=== PATIENT | female | born 1960 | race Caucasian/White ===

== ENCOUNTER → 2017-11-05 10:10 | Day surgery (SDC) | payer MEDICARE, SELFPAY ==
[2017-10-29 10:41] LABS: Hemoglobin 10.8 g/dl (12.0-15.0); Mean Corp Hgb Conc 32.7 g/gl (32-36); Mean Corpuscular Hgb 30.4 pg (27.0-32.0); Mean Platelet Vol. 10.4 fl (6.2-12.0); Platelet Count 304 K/mm3 (150-450); RBC Distribution Width CV 12.2 % (11.6-14.6); RBC Distribution Width SD 41.5 fl (35.1-43.9); Red Blood Count 3.55 M/mm3 (4.2-5.4)
[2017-10-29 10:50] LABS: Anion Gap 7 (5-15); BUN 30 mg/dL (7-18); Calcium,Total 8.9 mg/dL (8.5-10.1); Chloride 104 mmol/L (98-107); EST Glomerular Filtration Rate 23 mL/min (>60); Est Glom Filt Rate - Afr Amer 28 mL/min (>60); Glucose 131 mg/dL (70-110); Potassium 4.9 mmol/L (3.5-5.1); Sodium Level 140 mmol/L (136-145)
[2017-10-29 10:57] LABS: Scan Indicated on CBC? Y/N NO
[2017-11-04 09:55] VITALS: BMI 29.0
--- NOTE | 2017-11-05 13:28 | PCM.OPRPT ---
Problem List (1) Problem with dialysis access Status: Acute Qualifiers: Encounter type: initial encounter Qualified Code(s): T82.898A - Other specified complication of vascular prosthetic devices, implants and grafts, initial encounter Report of Operation Date of Procedure: 11/05/17 Pre-Operative Diagnosis: Problem with left forearm transposed loop basilic vein to brachial artery arteriovenous fistula Post-Operative Diagnosis: Mid fistula venous stenosis Surgery/Procedure Performed:: Carbon dioxide left upper extremity fistulogram with 6 x 80 mm ever cross angioplasty and 6 x 20 mm conquest angioplasty Description of Surgical Findings:: Timeout and informed consent was obtained. 56-year-old female was taken to the special procedures lab placed on the table. Left upper extremity was sterilely prepped draped. 50 mcg fentanyl 1 mg of Versed were given as intravenous sedation. Ultrasound was used to identify the basilic vein closer to the antecubital space and then retrograde with flow heading toward the apex of the loop in the forearm under ultrasound guidance a micropuncture needle was inserted micropuncture wire inserted 6 Portuguese short sheath was inserted. Then using an R CVP catheter and an 035 angled Glidewire access was gained to the brachial artery proximal to the anastomosis. As the patient is not yet on hemodialysis carbon dioxide was used as a contrast medium. Santos grams obtained this demonstrated an area of focal high-grade stenosis within the midportion of the fistula. A 6 x 80 mm ever cross balloon was placed over the Glidewire. Balloon angioplasty was performed of the entire length of the fistula. Unfortunately the area of tight 90? stenosis did not respond to this balloon. So after performing angioplasty and maturation technique of the entire venous portion of the fistula I then inserted a 6 x 20 m conquest balloon and the area of tight venous stenosis was retreated this time successfully. The RCB catheter was reinserted and a final fistulogram was obtained using carbon dioxide mistreating seemingly resolution of the area stenosis. Images were obtained of the upper arm and chest area demonstrating good central venous outflow The catheter was removed the sheath was removed U suture of 4-0 nylon was placed was good hemostasis was a strong pulse, thrill, bruit at the completion. Images demonstrate a loop forearm left transposed basilic vein to brachial artery AV shunt fistula with an area of mid fistula tight stenosis but good basilic vein upper arm outflow and good central venous outflow. Subsequent to the angioplasty there is now resolution of the stenosis. Aguila Wagner M.D., F.A.C.S.
== END ==
PROVIDERS: Family Provider Internal Medicine; PCP Internal Medicine; Visit Provider Surgery
DX: T82.858A Stenosis of other vascular prosthetic devices, implants and grafts, initial encounter (principal); I35.9 Nonrheumatic aortic valve disorder, unspecified; I12.9 Hypertensive chronic kidney disease with stage 1 through stage 4 chronic kidney disease, or unspecified chronic kidney disease; E10.22 Type 1 diabetes mellitus with diabetic chronic kidney disease; N18.4 Chronic kidney disease, stage 4 (severe); E78.5 Hyperlipidemia, unspecified; E03.9 Hypothyroidism, unspecified; E10.42 Type 1 diabetes mellitus with diabetic polyneuropathy; J45.909 Unspecified asthma, uncomplicated; M14.671 Charcot's joint, right ankle and foot; I25.2 Old myocardial infarction; Z87.01 Personal history of pneumonia (recurrent); Z89.411 Acquired absence of right great toe; Z98.51 Tubal ligation status; Z79.4 Long term (current) use of insulin; Z79.82 Long term (current) use of aspirin; Z79.899 Other long term (current) drug therapy
CPT/HCPCS: 36415; 36902; 76937; 80048; 85027; 99152; 99153; C1725; C1769

== ENCOUNTER → 2017-12-10 11:36 | Outpatient (CLI) | payer MEDICARE, SELFPAY ==
[2017-12-10 13:14] LABS: 24 Hour Urine Protein 447.5 mg/24HR (<150 MG/24HR); 24HR. UA Prot. Total Volume 625 mL; Urine Protein (24 Hour) 71.6 mg/dL (<11.9)
[2017-12-10 13:20] LABS: Hematocrit 30.3 % (37-47); Hemoglobin 9.5 g/dl (12.0-15.0); Mean Corp Hgb Conc 31.4 g/gl (32-36); Mean Corpuscular Hgb 30.4 pg (27.0-32.0); Mean Corpuscular Volume 96.8 fL (81-99); Mean Platelet Vol. 11.4 fl (6.2-12.0); Platelet Count 258 K/mm3 (150-450); RBC Distribution Width CV 13.5 % (11.6-14.6); RBC Distribution Width SD 46.8 fl (35.1-43.9); Red Blood Count 3.13 M/mm3 (4.2-5.4); White Blood Count 4.8 K/mm3 (4.4-11.0)
[2017-12-10 13:31] LABS: Scan Indicated on CBC? Y/N NO
[2017-12-10 13:42] LABS: Hemoglobin A1c 7.1 % (4.2-6.3)
[2017-12-10 13:47] LABS: Creat.Clear Total Volume 625 mL; Creatinine Clearance 13 ml/min (100-200); Creatinine Serum Creat 2.8 mg/dL (0.6-1.0); EST Glomerular Filtration Rate 19 mL/min (>60); Est Glom Filt Rate - Afr Amer 23 mL/min (>60)
[2017-12-10 13:49] LABS: ALB/GLOB Ratio 0.9 RATIO (0.9-2.4); AST(SGOT) 43 U/L (15-37); Alanine Aminotransfer ALT/SGPT 73 U/L (13-56); Alkaline Phosphatase 159 U/L (45-117); Anion Gap 10 (5-15); BUN 60 mg/dL (7-18); BUN/Creat Ratio 21.5 RATIO (10-20); Calcium,Total 8.7 mg/dL (8.5-10.1); Chloride 107 mmol/L (98-107); Cholesterol 112 mg/dL (200); Creatinine, Serum 2.79 mg/dL (0.55-1.02); EST Glomerular Filtration Rate 19 mL/min (>60); Est Glom Filt Rate - Afr Amer 23 mL/min (>60); Globulin 3.5 g/dL (2.2-4.2); Glucose 92 mg/dL (74-106); High Density Lipoprotein 71 mg/dL; Phosphorus 5.5 mg/dL (2.5-4.9); Potassium 5.8 mmol/L (3.5-5.1); Protein, Total 6.5 g/dL (6.4-8.2); Sodium Level 143 mmol/L (136-145); Triglycerides 57 mg/dL; Very Low Density Lipoprotein 11 mg/dL (5-40)
[2017-12-11 09:51] LABS: Vitamin D,25 Hydroxy 17.9 ng/mL (29.95-100.01)
[2017-12-11 10:49] LABS: PTHIN 142.6 pg/mL (18.4-80.1)
== END ==
PROVIDERS: Family Provider Internal Medicine; PCP Internal Medicine; Visit Provider Internal Medicine Nephrology
DX: E55.9 Vitamin D deficiency, unspecified (principal); D50.9 Iron deficiency anemia, unspecified; N25.81 Secondary hyperparathyroidism of renal origin; N18.4 Chronic kidney disease, stage 4 (severe); N18.3 Chronic kidney disease, stage 3 (moderate); E10.40 Type 1 diabetes mellitus with diabetic neuropathy, unspecified
CPT/HCPCS: 36415; 80053; 80061; 82306; 82575; 83036; 83970; 84100; 84156; 85027

== ENCOUNTER → 2017-12-16 15:08 | Outpatient (CLI) | payer MEDICARE, SELFPAY ==
[2017-12-16 19:24] LABS: Albumin, Serum 3.1 g/dL (3.2-5.0); BUN 71 mg/dL (7-18); BUN/Creat Ratio 22.9 RATIO (10-20); Calcium,Total 8.9 mg/dL (8.5-10.1); Chloride 109 mmol/L (98-107); EST Glomerular Filtration Rate 17 mL/min (>60); Est Glom Filt Rate - Afr Amer 20 mL/min (>60); Glucose 35 mg/dL (74-106); Phosphorus 4.6 mg/dL (2.5-4.9); Potassium 5.8 mmol/L (3.5-5.1); Sodium Level 142 mmol/L (136-145)
== END ==
PROVIDERS: Family Provider Internal Medicine; PCP Internal Medicine; Visit Provider Internal Medicine Nephrology
DX: E87.5 Hyperkalemia (principal)
CPT/HCPCS: 36415; 80069

== ENCOUNTER 2017-12-17 17:26 | Inpatient (IN) | payer MEDICARE, SELFPAY ==
[2017-12-17] VITALS (9 sets, daily range): BP systolic 81–138; BP diastolic 45–72; PULSE 71–80; RESP 10–19; TEMP 36.5–36.8; O2SAT 95–98; BMI 33.8; BMI 33.2
--- NOTE | 2017-12-17 18:02 | EKG12_ITS ---
Test Reason : SOB Blood Pressure : / mmHG Vent. Rate : 071 BPM Atrial Rate : 071 BPM P-R Int : 126 ms QRS Dur : 084 ms QT Int : 386 ms P-R-T Axes : 022 013 -11 degrees QTc Int : 419 ms Normal sinus rhythm Low voltage QRS Borderline ECG Confirmed by LORNA CLEMENT ([id number]), content editor SHAMA CASAS ([id number]) on 12/21/2017 1:43:15 PM Referred By: YSABEL/FABY Confirmed By:LORNA CLEMENT
--- NOTE | 2017-12-17 18:02 | RAD_ITS ---
STUDY: X-RAY CHEST REASON FOR EXAM: Female, 57 years old. COUGH, SOB TECHNIQUE: Frontal and lateral views of the chest. COMPARISON: Study done yesterday. FINDINGS: Chronic appearing increased interstitial lung markings. There are small bilateral pleural effusions. These appear worse. There is bilateral basilar infiltrate / atelectasis. This appears stable. Normal heart size. Normal mediastinum and donato. Normal visualized pulmonary arteries. There is atherosclerotic calcification of the aortic arch with tortuosity. There are diffuse degenerative changes of the visualized thoracic spine. There is degenerative osteoarthritis of the bilateral shoulders. There is no demonstrated abnormality of the visualized soft tissue structures of the upper abdomen. RAD/Chest PA and Lateral IMPRESSION: There are small bilateral pleural effusions. These appear worse. There is bilateral basilar infiltrate / atelectasis. This appears stable. Electronically Signed: Kirby Medina MD at 19:39 EDT , Service support ,
[2017-12-17 18:28] LABS: Absolute Lymphocyte Count 1.25 X10^3/ul (0.83-4.51); Absolute Neutrophil Count 2.1 X10^3/uL (2.0-7.7); Basophil# 0.11 X10^3/uL; Basophil% 2.6 % (0-1); Eosinophil# 0.24 X10^3/uL; Eosinophils% 5.6 % (0-5); Hematocrit 29.5 % (37-47); Hemoglobin 9.1 g/dl (12.0-15.0); Lymphocyte # 1.25 X10^3/ul (4.0); Lymphocyte % 29.3 % (19-41); Mean Corp Hgb Conc 30.8 g/gl (32-36); Mean Corpuscular Volume 97.4 fL (81-99); Mean Platelet Vol. 10.8 fl (6.2-12.0); Monocyte# 0.57 X10^3/uL; Monocyte% 13.3 % (0-10); Neutrophil % 49.2 % (47-70); Platelet Count 249 K/mm3 (150-450); RBC Distribution Width CV 13.4 % (11.6-14.6); RBC Distribution Width SD 46.9 fl (35.1-43.9); Red Blood Count 3.03 M/mm3 (4.2-5.4); White Blood Count 4.3 K/mm3 (4.4-11.0)
[2017-12-17 18:29] LABS: POSITIVE COUNT NO; POSITIVE DIFFERENTIAL NO; POSITIVE MORPHOLOGY NO
--- NOTE | 2017-12-17 18:30 | ED.DCSUM_ITS ---
- ER Visit Summary Date of Service: 12/17/17 Chief Complaint: Shortness of breath History of Present Illness: The patient is a [address] Pineda, Dr. Rober Melara, and Dr. Van. She reports that she has shortness of breath began approximately 1 week ago. States that it is mild and increased with laying flat. She also reports that she has chest pain began approximately 1 week ago. It is a constant waxing and waning pain that she describes as aching. It is 3 out of 10 at worst and 4 out of 10 now. It is increased with deep breaths. There is no change with exertion. Patient reports that she saw Dr. Pineda yesterday and was placed on Lasix. She is taken 40 mg twice and only urinated once. She reports that her potassium was 5.8 yesterday. Physical Examination: Vitals: Stable. Afebrile. General: Well-nourished and well-developed. Head: Normocephalic atraumatic. Neck: Supple, no lymphadenopathy. No JVD. Nontender. Cardiovascular: Regular rate and rhythm. No murmurs. Respiratory: No respiratory distress. Fine crackles at the left base only. Abdominal: Soft, nontender, nondistended, normal bowel sounds. No guarding, rebound, or peritoneal signs. Back: Nontender. Extremities: Nontender, 1+ edema to the lower extremity is bilaterally. Skin: Normal color, no rash. Neurologic: Alert and oriented ?3. Cranial nerves II through XII are intact. Normal strength and sensation. Psych: Normal affect. Test Results: EKG is sinus at 71 with a normal QRS interval at 84. Troponin is negative. Chem-7 is marked potassium 6.2 (this was 5.8 yesterday), BUN 71, creatinine 3.5, glucose 60, calcium 8.4. CBC is marked for white count of 4.3 with an H&H of 9.1 29.5, monocytes 13, eosinophils of 6, basophils of 2. Chest x-ray shows bilateral basilar infiltrates/atelectasis that are stable. She also has a small bilateral pleural effusions that are worse. Emergency Department Course and Treatment: Patient is resting comfortably. When her potassium returned the patient was given Kayexalate p.o., D50 IV, and 5 units of insulin IV. Her blood sugar was 60. Because of this she was given an apple juice and cookies. She is resting comfortably. She was not given calcium as her QRS interval is normal. Treatment Plan: Patient was discussed with Dr. Valencia. She will be admitted to the hospital for further relation and treatment. Disposition: Admitted in improved condition. Impression: 1. Chronic renal insufficiency. 2. Hyperkalemia. 3. Bilateral pleural effusions. 4. Dyspnea. 5. Critical care time 30 minutes. This note was generated with [employer] dictation software. It may contain incorrect words, spelling, and punctuation that were not noted in review of the chart prior to signing ED Disposition - Plan for ED Patient: Chief Complaint: Shortness of Breath Referrals: Rober Melara Jr., MD [Primary Care Provider] -
--- NOTE | 2017-12-17 18:54 | ED.RN ---
potassium 6.[address] lab[address] dr castro aware
[2017-12-17 18:55] LABS: Anion Gap 6 (5-15); BUN 71 mg/dL (7-18); BUN/Creat Ratio 21.8 RATIO (10-20); Calcium,Total 8.4 mg/dL (8.5-10.1); Chloride 107 mmol/L (98-107); Creatinine, Serum 3.25 mg/dL (0.55-1.02); EST Glomerular Filtration Rate 16 mL/min (>60); Est Glom Filt Rate - Afr Amer 19 mL/min (>60); Estimated Creatinine Clearance 13.72 ml/min; Glucose 60 mg/dL (74-106); Potassium 6.2 mmol/L (3.5-5.1); Sodium Level 138 mmol/L (136-145)
[2017-12-17] MEDS: Albuterol 2.5 MG/3 ML VIAL.NEB. INHALATION (19:26)
[2017-12-17] MEDS: Dextrose 50%-Water 25 GM/50 ML DISP.SYRIN IV (20:00)
[2017-12-17] MEDS: Sodium Polystyrene Sulfonate 15 GM/60 ML UDC 30 GM PO (20:00)
--- NOTE | 2017-12-17 20:25 | PCM.HP.STD ---
Problem List (1) Aortic valve disorder Status: Chronic (2) Diabetes type I Status: Chronic Qualifiers: Diabetes mellitus complication status: with unspecified complications Qualified Code(s): E10.8 - Type 1 diabetes mellitus with unspecified complications (3) Chronic kidney disease, stage 4, severely decreased GFR Status: Chronic (4) HTN (hypertension) Status: Chronic Qualifiers: Hypertension type: essential hypertension Qualified Code(s): I10 - Essential (primary) hypertension (5) Hyperlipidemia Status: Chronic Qualifiers: Hyperlipidemia type: unspecified Qualified Code(s): E78.5 - Hyperlipidemia, unspecified (6) Hypothyroidism Status: Chronic Qualifiers: Hypothyroidism type: unspecified Qualified Code(s): E03.9 - Hypothyroidism, unspecified (7) Diabetic polyneuropathy Status: Chronic Qualifiers: Diabetes mellitus type: type 1 Qualified Code(s): E10.42 - Type 1 diabetes mellitus with diabetic polyneuropathy (8) Asthma Status: Chronic Qualifiers: Asthma severity: unspecified severity Asthma persistence: unspecified Asthma complication type: unspecified Qualified Code(s): J45.909 - Unspecified asthma, uncomplicated (9) Charcot's joint of right foot Status: Chronic (10) Hyperkalemia Status: Acute (11) CHF (congestive heart failure) Status: Suspected Qualifiers: Heart failure type: diastolic Heart failure chronicity: acute Qualified Code(s): I50.31 - Acute diastolic (congestive) heart failure History of Present Illness Date of Admission: 12/17/17 Chief Complaint: Dyspnea, decreased UOP. The patient is a 57 y/o F w/ PMHx: Aortic Valve Disease, Diabetes mellitus type I with Hx Prior Insulin Pump w/ Neuropathy, CKD Stage IV (LUE fistula, maturing per Dr. Wagner 08/07/17), HTN, HLD, Hypothyroidism, Asthma, R Charcot Foot, Hx NSTEMI, Obesity, Anxiety and Depression, GERD, AOCD who presents to the [facility] ED on 12/17/17 with history of ongoing decreased UOP, dyspnea increased with exertion and orthopnea x ~ 1 week, worse over the last 24 hours with no UOP since AM upon ED presentation without urge or need in addition to ongoing constant, waxing and waning substernal chest discomfort with ongoing dyspnea as noted but no other sxs with highest discomfort rating 4/10 on day of ED presentation. In the ED work-up included T 98.3, HR 70s, BP 81/45-->134/60, RR 17, 96% on RA, CBC w/ WBC 4.3, Hgb 9.1, Plts 249 with increase mono, eos, baso, BMP w/ K 6.2 (5.8 day prior w/ Nephrology), BUN/Cr 71/3.25 (baseline Cr ), glucose 60, trop < 0.02, CXR with snall BL pleural effusions and atelectasis, EKG SR without any evidence of peaked T-waves. In the ED patient administered, kayexelate 30 gm po x 1, D50W amp, albuterol treatment x 1. Past Medical History Past Medical History (Chronic Problems): Chronic Problems (Last Reviewed 10/14/17 @ 13:46 by Luda Bazan) Aortic valve disorder (Chronic) Diabetes type I (Chronic) Chronic kidney disease, stage 4, severely decreased GFR (Chronic) HTN (hypertension) (Chronic) Hyperlipidemia (Chronic) Hypothyroidism (Chronic) Diabetic polyneuropathy (Chronic) Asthma (Chronic) Charcot's joint of right foot (Chronic) Allergies prochlorperazine edisylate [From Compazine] Adverse Reaction (Verified 12/17/17 17:30) Other i wig out prochlorperazine maleate [From Compazine] Adverse Reaction (Verified 12/17/17 17:30) Other Home Medications: Ambulatory Orders Medication Instructions Recorded Amlodipine [Norvasc] 5 mg PO DAILY 12/17/17 Aspirin 325 mg PO DAILY@0800 12/17/17 Atorvastatin Calcium 80 mg PO DAILY 12/17/17 Furosemide [Lasix] 40 mg PO DAILY 12/17/17 Gabapentin [Neurontin] 300 mg PO DAILY 12/17/17 Insulin Glargine,Hum.rec.anlog 40 unit SQ DAILY 12/17/17 [Lantus] Insulin Glulisine [Apidra] unit SQ DAILY 12/17/17 Levothyroxine Sodium [Synthroid] 137 mcg PO DAILY 12/17/17 Losartan Potassium [Cozaar] 25 mg PO DAILY 12/17/17 Metoprolol Tartrate [Lopressor 50 mg PO DAILY 12/17/17 (Beta Gloria)] Ranitidine [Zantac] 150 mg PO DAILY 12/17/17 Venlafaxine HCl [Effexor] 75 mg PO BID 12/17/17 Surgical History: dilatation and curettage, - - Tubal Ligation 1985; Dilation and currettage 1984, 2006; Right knee Tib fx with hardware ;LUE Fistula, currently maturing. 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 Denies: Chills, Fever, Weight Change HEENT: Denies: Head Aches, Sinus Congestion, Sinus Drainage Cardiovascular: Reports: Chest Pain, Chest Tightness, Orthopnea. Denies: Palpitations Respiratory: Reports: Cough, Shortness of Breath, Shortness of breath at rest, Shortness of breath upon exertion. Denies: Sputum production Gastrointestinal: Denies: Abdominal Pain, Nausea, Vomiting Genitourinary: Denies: Dysuria Musculoskeletal: Reports: Foot Pain. Denies: Joint Pain, Joint Tenderness Skin: Denies: Rash, Wounds Neurological: Denies: Numbness, Tingling, Focal weakness Psychiatric: Reports: Anxiety, Depression. Denies: Homicidal Ideations, Suicidal Ideations Hematologic/ Lymphatic: Reports: Anemia. Denies: Easy Bruising, Easy Bleeding VTE Information - Inpt Only VTE Present on Admission: No VTE Mechan Device Prophylaxis: SCD's VTE Pharm Prophylaxis ordered?: Yes Patient Problems: Active and Suspected Problems (Last Reviewed 10/14/17 @ 13:46 by Luda Bazan) Hyperkalemia (Acute) CHF (congestive heart failure) (Suspected) Subjective: Seated upright in the ED bed, notes feeling improved currently, chest discomfort lessened, no current dyspnea. Objective: Physical Examination: General: awake, alert, oriented x 3 and cooperative, seated upright in the ED bed in no apparent distress. Skin: normal color, turgor, no icterus, cyanosis. HEENT: AT/NC, EOMI, PERRLA, MMM, no carotid bruits, no marked JVD noted but thickened neck makes examination difficult. Lungs: Diminished BS BL, > bases, mild effort, no marked rales, ronchi or wheezing. Heart: Regular rate and rhythm; no gallop, rub audible. Abdomen: soft, obese, NTTP, ND, normal BS, no HSM. Extremities: no cyanosis, clubbing, LUE w/ AVF, + thrill. Neurological: patient awake, alert, oriented x 3; cognitive function intact; pupils equally reactive to light and accomodation; cranial nerves II-XII grossly normal, moving all 4 extremities, no focal deficits, strength moderately globally decreased. Psychiatric: affect appears normal, no acute evidence of depressive or anxiety feelings. - Physical Exam Vital Signs Temp Pulse Resp BP Pulse Ox 98.3 F 77 19 H 134/60 H 98 12/17/17 17:26 12/17/17 20:06 12/17/17 20:06 12/17/17 20:06 12/17/17 20:06 Oxygen Flow Rate (L/min) 2 Oxygen Delivery Method Nasal Cannula Weight: 173 lb 8.061 oz Body Mass Index (BMI) 33.8 Finger Stick Blood Glucose 341 Laboratory Tests Past 24 Hrs 12/17/17 12/17/17 18:21 18:21 WBC 4.3 L RBC 3.03 L Hgb 9.1 L Hct 29.5 L MCV 97.4 MCH 30.0 MCHC 30.8 L RDW 13.4 RDW Differential 46.9 H Plt Count 249 MPV 10.8 Immature Gran % (Auto) 0.000 Neut % (Auto) 49.2 Lymph % (Auto) 29.3 Craig % (Auto) 13.3 H Eos % (Auto) 5.6 H Baso % (Auto) 2.6 H Absolute Neuts (auto) 2.1 Absolute Lymphs (auto) 1.25 Total Counted Not Reportable Sodium 138 Potassium 6.2 H* Chloride 107 Carbon Dioxide 25.0 Anion Gap 6 BUN 71 H Creatinine 3.25 H Estim Creat Clear Calc 13.72 Est GFR (MDRD) Af Amer 19 L Est GFR (MDRD) Non-Af 16 L BUN/Creatinine Ratio 21.8 H Glucose 60 L Calcium 8.4 L Troponin I < 0.02 Assessment/Plan Active and Suspected Problems (Last Reviewed 10/14/17 @ 13:46 by Luda Bazan) Hyperkalemia (Acute) CHF (congestive heart failure) (Suspected) The patient is a 57 y/o F w/ PMHx: Aortic Valve Disease, Diabetes mellitus type I with Hx Prior Insulin Pump w/ Neuropathy, CKD Stage IV, HTN, HLD, Hypothyroidism, Asthma, R Charcot Foot, Hx NSTEMI, Obesity, Anxiety and Depression, GERD, AOCD who presents to the [facility] ED on 12/17/17 with history of ongoing decreased UOP, dyspnea increased with exertion and orthopnea x ~ 1 week, worse over the last 24 hours with no UOP since AM upon ED presentation without urge or need in addition to ongoing constant, waxing and waning substernal chest discomfort with ongoing dyspnea as noted but no other sxs with highest discomfort rating 4/10 on day of ED presentation. (1) Exertional Dyspnea, Mild BL Pleural Effusions, ? Decompensated CHF secondary to worsening Renal Disease: CXR obtained in the ED w/ small BL pleural effusions. Will admit to PCU, maintain on cardiac telemetry obtain cardiac enzyme series, obtain serial EKGs, initiate IV lasix diuresis, monitor I/Os, continue medical therapy w/ asa, statin, BB, holding ARB. Will obtain TSH and magnesium level. Will obtain ECHO. Nephrology consulted, given ongoing sxs, not improving, decreasing UOP with possible transition to HD. (2) Chest Pain: EKG in ED SR without acute evidence of ischemia, CXR w/ mild BL pleural effusions, initial trop normal. Will place on a monitored bed to assure no acute myocardial infarction with serial cardiac enzymes and EKGs. ASA, NG, morphine. Repeat EKG in AM. ECHO as noted. Mag pending. (3) Acute kidney injury on CKD stage IV: Worsening progressively, likely heading toward HD needs, baseline Cr noted per Dr. Pineda prior 2.0, will discuss status with Dr. Pineda, Nephrology, consultation pending. Given concurrent dyspnea, overload mild presentation complaints defer IVFs, IV lasix as noted, hold ARB. (4) Hyperkalemia: Admission K+ 6.2, kayexelate 30 gm po x 1, D50W amp, albuterol treatment x 1, will repeat level upon admission, if improved BS consider insulin and repeat kayexelate as needed, IV lasix as noted. (5) Diabetes mellitus type I: Continue home insulin regimen, ADA diet, accu checks w/ ISS. (6) Hypertension: Continue home regimen including metoprolol, IV lasix as noted, PRN hydralazine. (7) Hyperlipidemia: Continue home statin regimen. (8) Hypothyroidism: Continue home synthroid regimen, TSH pending. (9) Obesity: Weight loss and lifestyle changes encouraged. (10) AOCD: Admission Hgb 9.1, stable, trend. (11) DVT Prophylaxis: SCDs, heparin. Code Visit Inpatient E&M: 04449 Init Hosp L3
--- NOTE | 2017-12-17 20:42 | HP.PCM_ITS ---
Problem List (1) Aortic valve disorder Status: Chronic (2) Diabetes type I Status: Chronic Qualifiers: Diabetes mellitus complication status: with unspecified complications Qualified Code(s): E10.8 - Type 1 diabetes mellitus with unspecified complications (3) Chronic kidney disease, stage 4, severely decreased GFR Status: Chronic (4) HTN (hypertension) Status: Chronic Qualifiers: Hypertension type: essential hypertension Qualified Code(s): I10 - Essential (primary) hypertension (5) Hyperlipidemia Status: Chronic Qualifiers: Hyperlipidemia type: unspecified Qualified Code(s): E78.5 - Hyperlipidemia , unspecified (6) Hypothyroidism Status: Chronic Qualifiers: Hypothyroidism type: unspecified Qualified Code(s): E03.9 - Hypothyroidism , unspecified (7) Diabetic polyneuropathy Status: Chronic Qualifiers: Diabetes mellitus type: type 1 Qualified Code(s): E10.42 - Type 1 diabetes mellitus with diabetic polyneuropathy (8) Asthma Status: Chronic Qualifiers: Asthma severity: unspecified severity Asthma persistence: unspecified Asthma complication type: unspecified Qualified Code(s): J45.909 - Unspecified asthma, uncomplicated (9) Charcot's joint of right foot Status: Chronic (10) Hyperkalemia Status: Acute (11) CHF (congestive heart failure) Status: Suspected Qualifiers: Heart failure type: diastolic Heart failure chronicity: acute Qualified Code(s): I50.31 - Acute diastolic (congestive) heart failure History of Present Illness Date of Admission: 12/17/17 Chief Complaint: Dyspnea, decreased UOP. The patient is a 57 y/o F w/ PMHx: Aortic Valve Disease, Diabetes mellitus type I with Hx Prior Insulin Pump w/ Neuropathy, CKD Stage IV (LUE fistula, maturing per Dr. Wagner 08/07/17), HTN, HLD, Hypothyroidism, Asthma, R Charcot Foot, Hx NSTEMI, Obesity, Anxiety and Depression, GERD, AOCD who presents to the [facility] ED on 12/17/17 with history of ongoing decreased UOP, dyspnea increased with exertion and orthopnea x ~ 1 week, worse over the last 24 hours with no UOP since AM upon ED presentation without urge or need in addition to ongoing constant, waxing and waning substernal chest discomfort with ongoing dyspnea as noted but no other sxs with highest discomfort rating 4/10 on day of ED presentation. In the ED work-up included T 98.3, HR 70s, BP 81/45-->134/60, RR 17, 96% on RA, CBC w/ WBC 4.3, Hgb 9.1, Plts 249 with increase mono, eos, baso, BMP w/ K 6.2 (5.8 day prior w/ Nephrology), BUN/Cr 71/3.25 (baseline Cr ), glucose 60, trop < 0.02, CXR with snall BL pleural effusions and atelectasis, EKG SR without any evidence of peaked T-waves. In the ED patient administered, kayexelate 30 gm po x 1, D50W amp, albuterol treatment x 1. Past Medical History Past Medical History (Chronic Problems): Chronic Problems (Last Reviewed 10/14/17 @ 13:46 by Luda Bazan) Aortic valve disorder (Chronic) Diabetes type I (Chronic) Chronic kidney disease, stage 4, severely decreased GFR (Chronic) HTN (hypertension) (Chronic) Hyperlipidemia (Chronic) Hypothyroidism (Chronic) Diabetic polyneuropathy (Chronic) Asthma (Chronic) Charcot's joint of right foot (Chronic) Allergies prochlorperazine edisylate [From Compazine] Adverse Reaction (Verified 12/17/17 17:30) Other i wig out prochlorperazine maleate [From Compazine] Adverse Reaction (Verified 12/17/17 17 :30) Other Home Medications: Ambulatory Orders Medication Instructions Recorded Amlodipine [Norvasc] 5 mg PO DAILY 12/17/17 Aspirin 325 mg PO DAILY@0800 12/17/17 Atorvastatin Calcium 80 mg PO DAILY 12/17/17 Furosemide [Lasix] 40 mg PO DAILY 12/17/17 Gabapentin [Neurontin] 300 mg PO DAILY 12/17/17 Insulin Glargine,Hum.rec.anlog 40 unit SQ DAILY 12/17/17 [Lantus] Insulin Glulisine [Apidra] unit SQ DAILY 12/17/17 Levothyroxine Sodium [Synthroid] 137 mcg PO DAILY 12/17/17 Losartan Potassium [Cozaar] 25 mg PO DAILY 12/17/17 Metoprolol Tartrate [Lopressor 50 mg PO DAILY 12/17/17 (Beta Gloria)] Ranitidine [Zantac] 150 mg PO DAILY 12/17/17 Venlafaxine HCl [Effexor] 75 mg PO BID 12/17/17 Surgical History: dilatation and curettage, - - Tubal Ligation 1985; Dilation and currettage 1984, 2006; Right knee Tib fx with hardware ;LUE Fistula, currently maturing. Psychiatric History: Anxiety, Depression [employer] [facility] History: No pertinent [employer] [facility] history Lives: With Family Smoking Status: Never smoker Tobacco Use: Non-smoker Alcohol: Rare Drugs: None - *Family History Maternal History Items: Cancer - lung, melanoma Paternal History Items: Diabetes Review of Systems Constitutional: Reports: Malaise, Weakness, Fatigue. Denies: Chills, Fever, Weight Change HEENT: Denies: Head Aches, Sinus Congestion, Sinus Drainage Cardiovascular: Reports: Chest Pain, Chest Tightness, Orthopnea. Denies: Palpitations Respiratory: Reports: Cough, Shortness of Breath, Shortness of breath at rest, Shortness of breath upon exertion. Denies: Sputum production Gastrointestinal: Denies: Abdominal Pain, Nausea, Vomiting Genitourinary: Denies: Dysuria Musculoskeletal: Reports: Foot Pain. Denies: Joint Pain, Joint Tenderness Skin: Denies: Rash, Wounds Neurological: Denies: Numbness, Tingling, Focal weakness Psychiatric: Reports: Anxiety, Depression. Denies: Homicidal Ideations, Suicidal Ideations Hematologic/ Lymphatic: Reports: Anemia. Denies: Easy Bruising, Easy Bleeding VTE Information - Inpt Only VTE Present on Admission: No VTE Mechan Device Prophylaxis: SCD's VTE Pharm Prophylaxis ordered?: Yes Patient Problems: Active and Suspected Problems (Last Reviewed 10/14/17 @ 13:46 by Luda Bazan) Hyperkalemia (Acute) CHF (congestive heart failure) (Suspected) Subjective: Seated upright in the ED bed, notes feeling improved currently, chest discomfort lessened, no current dyspnea. Objective: Physical Examination: General: awake, alert, oriented x 3 and cooperative, seated upright in the ED bed in no apparent distress. Skin: normal color, turgor, no icterus, cyanosis. HEENT: AT/NC, EOMI, PERRLA, MMM, no carotid bruits, no marked JVD noted but thickened neck makes examination difficult. Lungs: Diminished BS BL, > bases, mild effort, no marked rales, ronchi or wheezing. Heart: Regular rate and rhythm; no gallop, rub audible. Abdomen: soft, obese, NTTP, ND, normal BS, no HSM. Extremities: no cyanosis, clubbing, LUE w/ AVF, + thrill. Neurological: patient awake, alert, oriented x 3; cognitive function intact; pupils equally reactive to light and accomodation; cranial nerves II-XII grossly normal, moving all 4 extremities, no focal deficits, strength moderately globally decreased. Psychiatric: affect appears normal, no acute evidence of depressive or anxiety feelings. - Physical Exam Vital Signs Temp Pulse Resp BP Pulse Ox 98.3 F 77 19 H 134/60 H 98 12/17/17 17:26 12/17/17 20:06 12/17/17 20:06 12/17/17 20:06 12/17/17 20:06 Oxygen Flow Rate (L/min) 2 Oxygen Delivery Method Nasal Cannula Weight: 173 lb 8.061 oz Body Mass Index (BMI) 33.8 Finger Stick Blood Glucose 341 Laboratory Tests Past 24 Hrs 12/17/17 12/17/17 18:21 18:21 WBC 4.3 L RBC 3.03 L Hgb 9.1 L Hct 29.5 L MCV 97.4 MCH 30.0 MCHC 30.8 L RDW 13.4 RDW Differential 46.9 H Plt Count 249 MPV 10.8 Immature Gran % (Auto) 0.000 Neut % (Auto) 49.2 Lymph % (Auto) 29.3 Bertie % (Auto) 13.3 H Eos % (Auto) 5.6 H Baso % (Auto) 2.6 H Absolute Neuts (auto) 2.1 Absolute Lymphs (auto) 1.25 Total Counted Not Reportable Sodium 138 Potassium 6.2 H* Chloride 107 Carbon Dioxide 25.0 Anion Gap 6 BUN 71 H Creatinine 3.25 H Estim Creat Clear Calc 13.72 Est GFR (MDRD) Af Amer 19 L Est GFR (MDRD) Non-Af 16 L BUN/Creatinine Ratio 21.8 H Glucose 60 L Calcium 8.4 L Troponin I < 0.02 Assessment/Plan Active and Suspected Problems (Last Reviewed 10/14/17 @ 13:46 by Luda Bazan) Hyperkalemia (Acute) CHF (congestive heart failure) (Suspected) The patient is a 57 y/o F w/ PMHx: Aortic Valve Disease, Diabetes mellitus type I with Hx Prior Insulin Pump w/ Neuropathy, CKD Stage IV, HTN, HLD, Hypothyroidism, Asthma, R Charcot Foot, Hx NSTEMI, Obesity, Anxiety and Depression, GERD, AOCD who presents to the [facility] ED on 12/17/17 with history of ongoing decreased UOP, dyspnea increased with exertion and orthopnea x ~ 1 week , worse over the last 24 hours with no UOP since AM upon ED presentation without urge or need in addition to ongoing constant, waxing and waning substernal chest discomfort with ongoing dyspnea as noted but no other sxs with highest discomfort rating 4/10 on day of ED presentation. (1) Exertional Dyspnea, Mild BL Pleural Effusions, ? Decompensated CHF secondary to worsening Renal Disease: CXR obtained in the ED w/ small BL pleural effusions. Will admit to PCU, maintain on cardiac telemetry obtain cardiac enzyme series, obtain serial EKGs, initiate IV lasix diuresis, monitor I /Os, continue medical therapy w/ asa, statin, BB, holding ARB. Will obtain TSH and magnesium level. Will obtain ECHO. Nephrology consulted, given ongoing sxs, not improving, decreasing UOP with possible transition to HD. (2) Chest Pain: EKG in ED SR without acute evidence of ischemia, CXR w/ mild BL pleural effusions, initial trop normal. Will place on a monitored bed to assure no acute myocardial infarction with serial cardiac enzymes and EKGs. ASA, NG, morphine. Repeat EKG in AM. ECHO as noted. Mag pending. (3) Acute kidney injury on CKD stage IV: Worsening progressively, likely heading toward HD needs, baseline Cr noted per Dr. Pineda prior 2.0, will discuss status with Dr. Pineda, Nephrology, consultation pending. Given concurrent dyspnea , overload mild presentation complaints defer IVFs, IV lasix as noted, hold ARB. (4) Hyperkalemia: Admission K+ 6.2, kayexelate 30 gm po x 1, D50W amp, albuterol treatment x 1, will repeat level upon admission, if improved BS consider insulin and repeat kayexelate as needed, IV lasix as noted. (5) Diabetes mellitus type I: Continue home insulin regimen, ADA diet, accu checks w/ ISS. (6) Hypertension: Continue home regimen including metoprolol, IV lasix as noted , PRN hydralazine. (7) Hyperlipidemia: Continue home statin regimen. (8) Hypothyroidism: Continue home synthroid regimen, TSH pending. (9) Obesity: Weight loss and lifestyle changes encouraged. (10) AOCD: Admission Hgb 9.1, stable, trend. (11) DVT Prophylaxis: SCDs, heparin. Code Visit Inpatient E&M: 94765 Init Hosp L3
[2017-12-17] MEDS: Venlafaxine HCl 75 MG Tablet PO (23:33)
[2017-12-17 23:41] LABS: Anion Gap 8 (5-15); BUN 71 mg/dL (7-18); BUN/Creat Ratio 21.8 RATIO (10-20); Calcium,Total 8.5 mg/dL (8.5-10.1); Chloride 108 mmol/L (98-107); Creatinine, Serum 3.26 mg/dL (0.55-1.02); EST Glomerular Filtration Rate 16 mL/min (>60); Est Glom Filt Rate - Afr Amer 19 mL/min (>60); Estimated Creatinine Clearance 13.68 ml/min; Glucose 157 mg/dL (74-106); Potassium 5.7 mmol/L (3.5-5.1); Sodium Level 141 mmol/L (136-145)
[2017-12-17 23:46] LABS: Bedside Glucose 150 mg/dL (70-110)
[2017-12-17 23:55] LABS: Magnesium 2.8 mg/dL (1.6-2.6); Thyroid Stim Hormone (TSH) 6.52 uIU/mL (0.358-3.74)
[2017-12-18] VITALS (7 sets, daily range): BP systolic 128–129; BP diastolic 52–63; PULSE 77–87; RESP 12–16; TEMP 36.6–36.7; O2SAT 98–99
[2017-12-18] MEDS: Furosemide 40 MG/4 ML Vial IV ×2 (00:26→10:02)
[2017-12-18] MEDS: Sodium Polystyrene Sulfonate 15 GM/60 ML UDC PO (00:26)
[2017-12-18 02:59] LABS: Hemoglobin 8.7 g/dl (12.0-15.0); Mean Corp Hgb Conc 31.1 g/gl (32-36); Mean Corpuscular Hgb 30.2 pg (27.0-32.0); Mean Corpuscular Volume 97.2 fL (81-99); Mean Platelet Vol. 10.9 fl (6.2-12.0); Platelet Count 234 K/mm3 (150-450); RBC Distribution Width CV 13.3 % (11.6-14.6); RBC Distribution Width SD 46.4 fl (35.1-43.9); Red Blood Count 2.88 M/mm3 (4.2-5.4); White Blood Count 4.1 K/mm3 (4.4-11.0)
[2017-12-18 03:00] LABS: Scan Indicated on CBC? Y/N NO
[2017-12-18 03:17] LABS: Anion Gap 9 (5-15); BUN 71 mg/dL (7-18); BUN/Creat Ratio 21.3 RATIO (10-20); Calcium,Total 8.3 mg/dL (8.5-10.1); Chloride 106 mmol/L (98-107); Creatinine, Serum 3.33 mg/dL (0.55-1.02); EST Glomerular Filtration Rate 15 mL/min (>60); Est Glom Filt Rate - Afr Amer 18 mL/min (>60); Estimated Creatinine Clearance 13.39 ml/min; Glucose 150 mg/dL (74-106); Potassium 5.2 mmol/L (3.5-5.1); Sodium Level 140 mmol/L (136-145)
[2017-12-18 03:26] LABS: T4 Free Direct 1.16 ng/dL (0.76-1.46)
--- NOTE | 2017-12-18 05:34 | PCM.PN.SRG ---
Patient Problems: Active and Suspected Problems (Last Reviewed 10/14/17 @ 13:46 by Luda Bazan) Hyperkalemia (Acute) CHF (congestive heart failure) (Suspected) Subjective: Pt with loop transposition left forearm basilic vein to brachial artery arteriovenous fistula. Most recent visit was 11/05/17 with a carbon dioxide fistulogram and angioplasty Pt without complaint but confusion noted - Physical Exam Extremities: - - left forearm fistula: excellent pulse, thrill, and bruit Vital Signs Temp Pulse Resp BP Pulse Ox 98.1 F 78 12 129/52 H 98 12/18/17 03:10 12/18/17 03:10 12/18/17 03:10 12/18/17 03:10 12/18/17 03:10 Oxygen Flow Rate (L/min) 2 Oxygen Delivery Method Nasal Cannula Weight: 170 lb 3.15 oz Body Mass Index (BMI) 33.2 Intake and Output for Last 24 Hours 12/16/17 12/17/17 12/18/17 23:59 23:59 23:59 Intake Total 40 / 40 Balance 40 / 40 Laboratory Tests Past 24 Hrs 12/17/17 12/17/17 12/17/17 22:49 22:49 22:49 WBC RBC Hgb Hct MCV MCH MCHC RDW RDW Differential Plt Count MPV Sodium 141 Potassium 5.7 H Chloride 108 H Carbon Dioxide 25.0 Anion Gap 8 BUN 71 H Creatinine 3.26 H Estim Creat Clear Calc 13.68 Est GFR (MDRD) Af Amer 19 L Est GFR (MDRD) Non-Af 16 L BUN/Creatinine Ratio 21.8 H Glucose 157 H Calcium 8.5 Magnesium 2.8 H Troponin I < 0.02 TSH 6.52 H Free T4 12/18/17 12/18/17 12/18/17 02:45 02:45 02:45 WBC 4.1 L RBC 2.88 L Hgb 8.7 L Hct 28.0 L MCV 97.2 MCH 30.2 MCHC 31.1 L RDW 13.3 RDW Differential 46.4 H Plt Count 234 MPV 10.9 Sodium 140 Potassium 5.2 H Chloride 106 Carbon Dioxide 25.0 Anion Gap 9 BUN 71 H Creatinine 3.33 H Estim Creat Clear Calc 13.39 Est GFR (MDRD) Af Amer 18 L Est GFR (MDRD) Non-Af 15 L BUN/Creatinine Ratio 21.3 H Glucose 150 H Calcium 8.3 L Magnesium Troponin I < 0.02 TSH Free T4 12/18/17 02:45 WBC RBC Hgb Hct MCV MCH MCHC RDW RDW Differential Plt Count MPV Sodium Potassium Chloride Carbon Dioxide Anion Gap BUN Creatinine Estim Creat Clear Calc Est GFR (MDRD) Af Amer Est GFR (MDRD) Non-Af BUN/Creatinine Ratio Glucose Calcium Magnesium Troponin I TSH Free T4 1.16 POC Glucose 12/17/17 23:06 POC Glucose 150 H Assessment/Plan Active and Suspected Problems (Last Reviewed 10/14/17 @ 13:46 by Luda Bazan) Hyperkalemia (Acute) CHF (congestive heart failure) (Suspected) Pt's left forearm AV fistula may be used for hemodialysis, thank you
--- NOTE | 2017-12-18 05:55 | ECHOD_ITS ---
Reason For Study: CHF Procedure This was a 2D Doppler, Color Flow transthoracic echocardiogram. The study was technically difficult. Exam performed portable in patient room. Left Ventricle Normal size and thickness. The estimated ejection fraction is 65 %. Stage 1 diastolic dysfunction. No regional wall motion abnormalities noted. Right Ventricle Normal size and thickness. Normal systolic function. Atria Normal left atrium. Normal right atrium. Normal atrial septum. Mitral Valve Mild diffuse mitral valve thickening. Mild mitral annular calcification extending into the posterior leaflet. Trivial mitral valve insufficiency. Tricuspid Valve Normal tricuspid valve. Mild (1+) tricuspid valve insufficiency. Right ventricular systolic pressure estimated to be 40 mmHg. Aortic Valve Trisinus/trileaflet aortic valve. Mild diffuse aortic valve thickening. Pulmonic Valve Normal pulmonic valve. Mild (1+) pulmonic valve insufficiency. Great Vessels Normal aortic root. Mild atherosclerosis of the aortic arch. The inferior vena cava is dilated. No collapse of the inferior vena cava. Pericardium/Pleural No pericardial effusion. MMode/2D Measurements & Calculations LVIDd: 5.0 cm IVSd: 0.84 cm Ao root diam: 2.7 cm LVIDs: 3.1 cm LVPWd: 0.87 cm LA dimension: 3.7 cm FS: 37.7 % LAV(MOD-bp): 38.1 ml LA A4 area: 15.8 cm2 RA A4 area: 13.6 cm2 LAV(MOD-bp) Indexed: 21.9 ml/m2 LAV(MOD-sp2): 36.2 ml LAV(MOD-sp4): 37.1 ml Doppler Measurements & Calculations MV E max aaron: 97.1 cm/sec Lat Peak E' Aaron: 8.5 cm/sec Med Peak E' Aaron: 7.7 cm/sec MV A max aaron: 71.8 cm/sec E/E' lat: 11.4 E/E' med: 12.6 MV E/A: 1.4 Ao V2 max: 147.1 cm/sec LV V1 max: 83.0 cm/sec PA V2 max: 96.9 cm/sec Ao max P.7 mmHg LV V1 max P.8 mmHg Ao V2 mean: 109.3 cm/sec Ao mean P.2 mmHg Ao V2 VTI: 33.7 cm TR max aaron: 274.3 cm/sec TR max P.2 mmHg Interpretation Summary The estimated ejection fraction is 65 %. Stage 1 diastolic dysfunction. Trivial mitral valve insufficiency. Mild (1+) tricuspid valve insufficiency. Right ventricular systolic pressure estimated to be 40 mmHg. The inferior vena cava is dilated Compared to echo report dated 12/29/2016, no appreciable changes noted. Ordering Physician: Katheryn Valencia Performed By: Libra Tyler RDCS, RVT
--- NOTE | 2017-12-18 05:55 | EKG12_ITS ---
Test Reason : AM EKG Blood Pressure : / mmHG Vent. Rate : 079 BPM Atrial Rate : 079 BPM P-R Int : 116 ms QRS Dur : 086 ms QT Int : 374 ms P-R-T Axes : 030 005 -04 degrees QTc Int : 428 ms Normal sinus rhythm Nonspecific T wave abnormality Abnormal ECG When compared with ECG of 17-DEC-2017 17:33, MANUAL COMPARISON REQUIRED, DATA IS UNCONFIRMED Confirmed by LORNA CLEMENT ([id number]), editor index SHAMA CASAS ([id number]) on 12/21/2017 2:53:08 PM Referred By: CHIDI Confirmed By:LORNA CLEMENT
[2017-12-18] MEDS: Levothyroxine 137 MCG Tablet PO (06:13)
[2017-12-18 07:36] LABS: Bedside Glucose 128 mg/dL (70-110)
[2017-12-18] MEDS: Venlafaxine HCl 75 MG Tablet PO (10:02)
[2017-12-18] MEDS: Gabapentin 300 MG Capsule PO (10:02)
[2017-12-18] MEDS: amLODIPine 5 MG Tablet PO (10:02)
[2017-12-18] MEDS: Famotidine 20 MG Tablet PO (10:02)
[2017-12-18] MEDS: Metoprolol Tartrate 50 MG Tablet PO (10:02)
[2017-12-18] MEDS: Aspirin 325 MG Tablet PO (10:02)
--- NOTE | 2017-12-18 12:21 | PCM.CONS.R ---
Consultation - Renal 12/18/17 PCP/ Referring MD: Requesting physician: Katheryn Valencia Primary care physician: Rober Melara Reason for Consultation:: CKD Stage 5 - History of Present Illness History of Present Illness: The patient is a 57 year old F known to me with CKD stage V due to diabetes mellitus type 1 presents with generalized weakness, fluid retention, shortness of breath. She was recently seen in my office and we had discussed initiating dialysis once she is cleared to use her AV fistula after evaluated by Dr. Wagner. She had blood work done the day of her office visit that showed an elevated potassium 5.8 with sugar low at 37. She was started on Lasix 40 mg once a day for fluid retention that improved. However her urine output was minimal on the day of admission. She was started on IV Lasix. She had a small pleural effusion on chest x-ray. Her lower extremity edema was stable. Her oxygenation was good at 96% on 2L. She was treated with Kayexalate for her high potassium. Repeat potassium level was 5.2 today. She will need to follow a low potassium diet on discharge. We will arrange dialysis as an outpatient once her hepatitis studies are back. Dr. Wagner had seen the patient and has given us permission to start using her AV fistula. - Allergies Allergies: Allergies prochlorperazine edisylate [From Compazine] Adverse Reaction (Verified 12/17/17 17:30) Other i wig out prochlorperazine maleate [From Compazine] Adverse Reaction (Verified 12/17/17 17:30) Other - Current Medications Current Medications: Current Medications Acetaminophen (Tylenol) 650 mg PO Q6H PRN PRN PRN Reason: Mild Pain (scale 0-3)/T>100.7 Al Hydroxide/Mg Hydroxide (Mylanta Ii) 30 ml PO Q6H PRN PRN PRN Reason: Gastric burning Amlodipine Besylate (Norvasc) 5 mg PO DAILY [facility] Last Admin: 12/18/17 10:02 Dose: 5 mg Aspirin (Aspirin) 325 mg PO DAILY@0800 GEE Last Admin: 12/18/17 10:02 Dose: 325 mg Atorvastatin Calcium (Lipitor) 80 mg PO QHS GEE Clonazepam (Klonopin) 0.5 mg PO Q8H PRN PRN PRN Reason: ANXIETY Dextrose (D50w Syringe) 0 gm IV X1 PRN; Protocol PRN Reason: Hypoglycemia Famotidine (Pepcid) 20 mg PO DAILY [facility] Last Admin: 12/18/17 10:02 Dose: 20 mg Furosemide (Lasix) 40 mg IV BID@1000,1800 [facility] Last Admin: 12/18/17 10:02 Dose: 40 mg Gabapentin (Neurontin) 300 mg PO DAILYCM [facility] Last Admin: 12/18/17 10:02 Dose: 300 mg Glucagon () 1 mg IM .X1 PRN PRN Reason: Hypoglycemia Heparin Sodium (Porcine) (Heparin Na) 5,000 unit SC BID [facility] Last Admin: 12/18/17 10:01 Dose: 5,000 u Insulin Aspart (Novolog Flexpen ([facility])) 0 units SC ACHS [facility] PRN Reason: Protocol Last Admin: 12/18/17 08:29 Dose: Not Given Insulin Detemir (Levemir ([facility])) 14 units SC BID [facility] Last Admin: 12/18/17 10:02 Dose: 14 u Levothyroxine Sodium (Synthroid) 137 mcg PO DAILY@0600 [facility] Last Admin: 12/18/17 06:13 Dose: 137 mcg Magnesium Hydroxide (Milk Of Magnesia) 30 ml PO DAILY PRN PRN Reason: Constipation Metoprolol Tartrate (Lopressor (Beta Gloria)) 50 mg PO BID [facility] Last Admin: 12/18/17 10:02 Dose: 50 mg Morphine Sulfate () 2 - 4 mg IV Q3H PRN PRN PRN Reason: Severe Pain (pain scale 6-10) Morphine Sulfate () 1 - 2 mg IV Q4H PRN PRN PRN Reason: Moderate Pain (pain scale 4-5) Nutritional Formula (Nepro Carb Steady) 120 ml PO 4X/DAY [facility] Last Admin: 12/18/17 10:03 Dose: Not Given Ondansetron HCl (Zofran) 4 mg IV Q8H PRN PRN PRN Reason: NAUSEA Oxycodone HCl (Oxyir) 5 mg PO Q4H PRN PRN PRN Reason: Moderate Pain (pain scale 4-5) Promethazine HCl (Phenergan (Ll)) 12.5 mg IV Q6H PRN PRN PRN Reason: NAUSEA/VOMITING Venlafaxine HCl (Effexor) 75 mg PO BID [facility] Last Admin: 12/18/17 10:02 Dose: 75 mg - Past Medical History Past Medical History (Chronic Problems): Chronic Problems (Last Reviewed 10/14/17 @ 13:46 by Luda Bazan) Aortic valve disorder (Chronic) Diabetes type I (Chronic) Chronic kidney disease, stage 4, severely decreased GFR (Chronic) HTN (hypertension) (Chronic) Hyperlipidemia (Chronic) Hypothyroidism (Chronic) Diabetic polyneuropathy (Chronic) Asthma (Chronic) Charcot's joint of right foot (Chronic) - Past Surgical History Surgical History: dilatation and curettage, - - Tubal Ligation 1985; Dilation and currettage 1984, 2006; Right knee Tib fx with hardware ;LUE Fistula, currently maturing. - Social History Smoking Status: Never smoker Alcohol: Rare Drugs: None - Family History Maternal History Items: Cancer - lung, melanoma Paternal History Items: Diabetes Review of Systems Constitutional: Reports: Anorexia, Weakness, Fatigue. Denies: Chills, Fever HEENT: Denies: Head Aches Cardiovascular: Reports: Edema. Denies: Chest Pain Respiratory: Reports: Shortness of Breath, Shortness of breath upon exertion Gastrointestinal: Denies: Abdominal Pain, Constipation, Diarrhea, Nausea, Vomiting Genitourinary: Denies: Dysuria, Hematuria Skin: Denies: Rash Neurological: Reports: Balance problems, - - Generalized weakness Psychiatric: Reports: Anxiety, Depression Hematologic/ Lymphatic: Reports: Anemia. Denies: Hx of blood clot - Physical Exam General: Alert, Oriented x3, Cooperative, No apparent distress HEENT: PERRLA, EOMI Oral: Moist Mucosa Neck: Supple Lungs: Clear to auscultation Cardiovascular: Regular rate, No rub noted Abdomen: Bowel Sounds Present, Soft, Non Tender, Non-Distended, Obese Extremities: Edema Skin: No rashes Musculoskeletal: No Muscle Wasting Neurological: Cranial nerves II-XII grossly intact Psych/Mental Status: Normal Affect, Appropriate, Alert and oriented to time, place, person, mood and affect Vital Signs Temp Pulse Resp BP Pulse Ox 97.8 F 81 16 128/63 H 98 12/18/17 09:54 12/18/17 11:08 12/18/17 09:54 12/18/17 09:54 12/18/17 09:54 Oxygen Flow Rate (L/min) 2 Oxygen Delivery Method Nasal Cannula Weight: 77.2 kg Body Mass Index (BMI) 33.2 Intake and Output for Last 24 Hours 12/16/17 12/17/17 12/18/17 23:59 23:59 23:59 Intake Total 40 / 40 170 / 170 Balance 40 / 40 170 / 170 Laboratory Tests Past 24 Hrs 12/17/17 12/17/17 12/17/17 22:49 22:49 22:49 WBC RBC Hgb Hct MCV MCH MCHC RDW RDW Differential Plt Count MPV Sodium 141 Potassium 5.7 H Chloride 108 H Carbon Dioxide 25.0 Anion Gap 8 BUN 71 H Creatinine 3.26 H Estim Creat Clear Calc 13.68 Est GFR (MDRD) Af Amer 19 L Est GFR (MDRD) Non-Af 16 L BUN/Creatinine Ratio 21.8 H Glucose 157 H Calcium 8.5 Magnesium 2.8 H Troponin I < 0.02 TSH 6.52 H Free T4 12/18/17 12/18/17 12/18/17 02:45 02:45 02:45 WBC 4.1 L RBC 2.88 L Hgb 8.7 L Hct 28.0 L MCV 97.2 MCH 30.2 MCHC 31.1 L RDW 13.3 RDW Differential 46.4 H Plt Count 234 MPV 10.9 Sodium 140 Potassium 5.2 H Chloride 106 Carbon Dioxide 25.0 Anion Gap 9 BUN 71 H Creatinine 3.33 H Estim Creat Clear Calc 13.39 Est GFR (MDRD) Af Amer 18 L Est GFR (MDRD) Non-Af 15 L BUN/Creatinine Ratio 21.3 H Glucose 150 H Calcium 8.3 L Magnesium Troponin I < 0.02 TSH Free T4 12/18/17 12/18/17 02:45 09:15 WBC RBC Hgb Hct MCV MCH MCHC RDW RDW Differential Plt Count MPV Sodium Potassium Chloride Carbon Dioxide Anion Gap BUN Creatinine Estim Creat Clear Calc Est GFR (MDRD) Af Amer Est GFR (MDRD) Non-Af BUN/Creatinine Ratio Glucose Calcium Magnesium Troponin I < 0.02 TSH Free T4 1.16 POC Glucose 12/18/17 12/17/17 06:46 23:06 POC Glucose 128 H 150 H Clinical Impression(s) from Imaging Studies Chest X-Ray 12/17/17 18:02 IMPRESSION: There are small bilateral pleural effusions. These appear worse. There is bilateral basilar infiltrate / atelectasis. This appears stable. Electronically Signed: Kirby Medina MD at 19:39 EDT , Service support , Assessment/Plan 1. CKD stage V progressed to ESRD due to type 1 diabetes. Will initiate hemodialysis as an outpatient. No urgency to initiate dialysis now. 2. Hyperkalemia resolved with medications. 3. Fluid retention discharge on Lasix 80 mg twice a day. 4. DM type 1 With hypoglycemia. Sugars stable today will need to adjust her insulin as she has progressive renal failure. 5. Hypertension with stable blood pressure 6. Anemia hemoglobin stable. Follow-up at the dialysis center.
[2017-12-18 12:36] LABS: Bedside Glucose 170 mg/dL (70-110)
--- NOTE | 2017-12-18 12:58 | DCINST_ITS ---
- Discharge Diagnoses Current Active Problems: Current Active and Chronic Problems (Last Reviewed 10/14/17 @ 13:46 by Luda Bazan) Hyperkalemia (Acute) You will use the following diet at home:: Renal (restricted protein/sodium) Discharge Activity: Return to Normal Activity Call your doctor if you observe: Shortness of breath, Dizziness, Fainting spells , Chest pain, Increased palpitations (irregular heartbeat) Allergies/Adverse Reactions: Allergies prochlorperazine edisylate [From Compazine] Adverse Reaction (Verified 12/17/17 17:30) Other i wig out prochlorperazine maleate [From Compazine] Adverse Reaction (Verified 12/17/17 17 :30) Other Medications to take at Discharge Amlodipine [Norvasc] 5 mg PO DAILY 12/17/17 Aspirin 325 mg PO DAILY 12/17/17 Clonazepam [Klonopin] 0.5 mg PO Q8H PRN PRN 12/17/17 Insulin Glargine,Hum.rec.anlog [Lantus] 14 unit SQ BID 12/17/17 Insulin Glulisine [Apidra] unit SQ DAILY 12/17/17 Levothyroxine Sodium [Synthroid] 137 mcg PO DAILY 12/17/17 Losartan Potassium [Cozaar] 25 mg PO DAILY 12/17/17 Metoprolol Tartrate [Lopressor (beta sam)] 50 mg PO BID 12/17/17 Ranitidine [Zantac] 150 mg PO DAILY PRN 12/17/17 Venlafaxine HCl [Effexor] 75 mg PO BID 12/17/17 Furosemide [Lasix] 80 mg PO BIDLX #60 tab 12/18/17 albuterol sulfate HFA 90 mcg/actuation aerosol inhaler 2 puff INHALATION Q4H g 12/18/17 atorvastatin 40 mg tablet 40 mg PO QDAY 12/18/17 ergocalciferol (vitamin D2) 50,000 unit capsule 50,000 unit PO QWEEK 12/18/17 gabapentin 300 mg capsule 300 mg PO BID cap 12/18/17 The following prescriptions were given: Furosemide [Lasix] 80 mg PO BIDLX #60 tab Primary Care Physician: Rober Melara Jr., MD [Primary Care Provider] - Please follow up with your Primary Care Physician in: 1-2 Weeks Please Follow Up With: Dee Dee Pineda DO When: As scheduled. Proposed Discharge Date: 12/18/17
--- NOTE | 2017-12-18 13:01 | PCM.DC.SUM ---
<Ayesha Nunn - Last Filed: 12/18/17 13:23> Discharge Date and Diagnosis Date of Admission: 12/17/17 Date of Discharge: 12/18/17 - Primary Discharge Diagnosis Active and Suspected Problems (Last Reviewed 10/14/17 @ 13:46 by Luda Bazan) 1. Fluid overload and acute hypoxia secondary to acute kidney injury on chronic kidney disease stage IV 2. Hyperkalemia 3. Chest pain-ACS rule out. - Secondary Discharge Diagnosis Chronic Problems (Last Reviewed 10/14/17 @ 13:46 by Luda Bazan) Aortic valve disorder (Chronic) Diabetes type I (Chronic) Chronic kidney disease, stage 4, severely decreased GFR (Chronic) HTN (hypertension) (Chronic) Hyperlipidemia (Chronic) Hypothyroidism (Chronic) Diabetic polyneuropathy (Chronic) Asthma (Chronic) Charcot's joint of right foot (Chronic) Hospital Course and Treatment Imaging Results: 12/18/17 05:55 Echo Complete [ECHO] AM (NON MEDS) Operations: None Procedures: 2-D Echocardiogram Summary of Care Provided: The patient is a 57 year old F who presented to the emergency room 12/17/2017 due to dyspnea, decreased urine output. She has a past medical history of aortic valve disease, type 1 diabetes mellitus with prior history of insulin pump, diabetic neuropathy, chronic kidney disease stage IV with left upper extremity fistula placed 08/07/[address] Wagner, hypertension, hyperlipidemia, hypothyroidism, asthma, right Charcot foot, history of NSTEMI, obesity, anxiety, depression, GERD, anemia of chronic disease. Patient was found to have fluid overload secondary to worsening renal disease. Chest x-ray on admission showed small bilateral pleural effusions. Patient received IV Lasix and dyspnea improved. Dr. Pineda, nephrology was consulted who patient follows with on an outpatient basis. Dr. Wagner also consulted who states that recent left forearm AV fistula can be used for dialysis. Dr. Pineda planning on dialysis as outpatient. In the meantime her home Lasix regimen will be increased to 80 mg twice daily. Patient received Kayexalate for hyperkalemia which significantly improved. Patient complained of intermittent chest discomfort. EKG in ER without evidence of ischemia. Troponin negative. Echocardiogram completed and pending at discharge. Echocardiogram May 2015 showed an EF of 60%, mild tricuspid valve insufficiency, right ventricular systolic pressure estimated to be 23 mmHg. TSH 6.5, free T4 1.1. Patient seen and examined prior to discharge. Patient in no acute distress. Lungs clear, diminished. Heart rate regular in rate and rhythm. Abdomen soft, nontender. Neuro grossly intact. Left upper extremity AV fistula positive for thrill and bruit. Vitals stable. Patient was weaned off of oxygen, oxygen stable on room air. This patient was seen by NATE Luna under the supervision of Dr. Stiles. Discharge Diet: Renal Diet Discharge Activity: Return to Normal Activity Call your doctor if you observe: Shortness of breath, Dizziness, Fainting spells, Chest pain, Increased palpitations (irregular heartbeat) Home Medications: Medications to take at Discharge Amlodipine [Norvasc] 5 mg PO DAILY 12/17/17 Aspirin 325 mg PO DAILY 12/17/17 Clonazepam [Klonopin] 0.5 mg PO Q8H PRN PRN 12/17/17 Insulin Glargine,Hum.rec.anlog [Lantus] 14 unit SQ BID 12/17/17 Insulin Glulisine [Apidra] unit SQ DAILY 12/17/17 Levothyroxine Sodium [Synthroid] 137 mcg PO DAILY 12/17/17 Losartan Potassium [Cozaar] 25 mg PO DAILY 12/17/17 Metoprolol Tartrate [Lopressor (beta sam)] 50 mg PO BID 12/17/17 Ranitidine [Zantac] 150 mg PO DAILY PRN 12/17/17 Venlafaxine HCl [Effexor] 75 mg PO BID 12/17/17 Furosemide [Lasix] 80 mg PO BIDLX #60 tab 12/18/17 albuterol sulfate HFA 90 mcg/actuation aerosol inhaler 2 puff INHALATION Q4H g 12/18/17 atorvastatin 40 mg tablet 40 mg PO QDAY 12/18/17 ergocalciferol (vitamin D2) 50,000 unit capsule 50,000 unit PO QWEEK 12/18/17 gabapentin 300 mg capsule 300 mg PO BID cap 12/18/17 Following Prescrptions Were Given to Patient: Furosemide [Lasix] 80 mg PO BIDLX #60 tab Primary Care Physician: Rober Melara Jr., MD [Primary Care Provider] - Please follow up with your Primary Care Physician in: 1-2 Weeks Please Follow Up With: Dee Dee Pineda DO When: As scheduled. Disposition: Home Minutes spent on discharge:: 35 Patient Condition:: Stable Meaningful Use Info Meaningful Use Diagnoses (Choose all that apply): None applicable <CarolemichaelMaury - Last Filed: 12/18/17 13:39> Discharge Date and Diagnosis - Secondary Discharge Diagnosis Chronic Problems (Last Reviewed 10/14/17 @ 13:46 by Luda Bazan) Aortic valve disorder (Chronic) Diabetes type I (Chronic) Chronic kidney disease, stage 4, severely decreased GFR (Chronic) HTN (hypertension) (Chronic) Hyperlipidemia (Chronic) Hypothyroidism (Chronic) Diabetic polyneuropathy (Chronic) Asthma (Chronic) Charcot's joint of right foot (Chronic) Hospital Course and Treatment Imaging Results: 12/18/17 05:55 Echo Complete [ECHO] AM (NON MEDS) Summary of Care Provided: The patient is a 57 year old F with multiple comorbidities including end-stage renal disease scheduled to initiate dialysis as outpatient, dyslipidemia, CAD, who presented with progressive shortness of breath and assessment of congestive heart failure attributed to fluid overload from patient end-stage renal disease was made patient was managed with diuretics. Patient condition did improve. Was also seen in consultation by her risk reduction counselor Dr. Pineda who requested for ordering hepatitis screen prior to initiation of dialysis as outpatient. Patient was also seen by Dr. Ramos with vascular surgery who gave the okay for patient AV fistula to be used for dialysis Patient was seen and examined on the day of her presentation. Her discharge instructions medications follow-up appointment reviewed by myself. Case was discussed with NATE Luna who has elicited patient hospital stay as above Total time spent on discharge process 35 minutes Code Visit Inpatient E&M: 66878 Disch Hosp
--- NOTE | 2017-12-18 13:30 | CASEMGMT ---
Face to Face with patient for initial transition planning/care coordination assessment. NABILA LEDEZMA introduced self and role at [facility], pt voices understanding and consents to assessment at this time. Pt sitting up in chair in no distress at this time. Pt A/O x4 at this time and answers all questions appropriately at this time. Care providers, pharmacy, and demographics verified. See attached link. Pt voices no further concerns/needs at this time. Advised pt to ask for CM if any further questions/concerns/needs arise, voices understanding. PLAN: [place] NABILA LEDEZMA
[2017-12-20 06:24] LABS: HEPATITIS B SURFACE AG Negative (Negative); Hep B Surface Antibodies Reactive (.)
== END 2017-12-18 15:13 | disposition home or self-care (01) | DRG 291 ==
LOC: ED 18:24 → PCU 21:04
PROVIDERS: Internal Medicine Nephrology; Admitting Provider Family Medicine; Emergency Provider Emergency Medicine; Family Provider Internal Medicine; PCP Internal Medicine; Visit Provider Internal Medicine
DX: I13.2 Hypertensive heart and chronic kidney disease with heart failure and with stage 5 chronic kidney disease, or end stage renal disease (principal); I50.33 Acute on chronic diastolic (congestive) heart failure; E10.22 Type 1 diabetes mellitus with diabetic chronic kidney disease; E10.42 Type 1 diabetes mellitus with diabetic polyneuropathy; N18.6 End stage renal disease; E87.5 Hyperkalemia; E03.9 Hypothyroidism, unspecified; E78.5 Hyperlipidemia, unspecified; Z79.4 Long term (current) use of insulin; E66.9 Obesity, unspecified; Z68.33 Body mass index [BMI] 33.0-33.9, adult; I35.9 Nonrheumatic aortic valve disorder, unspecified; J45.909 Unspecified asthma, uncomplicated; M14.671 Charcot's joint, right ankle and foot; R09.02 Hypoxemia; I25.2 Old myocardial infarction; R07.9 Chest pain, unspecified
CPT/HCPCS: 36415; 71046; 80048; 80069; 82962; 83735; 84439; 84443; 84484; 85025; 85027; 86706; 87340; 93005; 93306; 94640; 97802; 99283; A4216; J1940

== ENCOUNTER 2018-03-08 07:55 | Day surgery (SDC) | payer MEDICARE, MEDICAID, SELFPAY ==
[2018-03-05 08:16] VITALS: BMI 27.1
--- NOTE | 2018-03-08 07:55 | DT_ITS ---
This patient was seen during an EMR downtime March 08, 2018 - March 15, 2018. This patient may have a combination of paper and electronic documentation or all paper documentation. All documentation is viewable within the e-chart portion of [employer] for each patient visit.
[2018-03-11 11:48] LABS: BUN 27 mg/dL (7-18); BUN/Creat Ratio 12.6 RATIO (10-20); Creatinine, Serum 2.15 mg/dL (0.55-1.02); EST Glomerular Filtration Rate 25 mL/min (>60); Est Glom Filt Rate - Afr Amer 30 mL/min (>60); Estimated Creatinine Clearance 20.74 ml/min; Glucose 163 mg/dL (74-106)
[2018-03-11 11:49] LABS: Anion Gap 8 (5-15); Chloride 103 mmol/L (98-107); Potassium 4.9 mmol/L (3.5-5.1); Sodium Level 141 mmol/L (136-145)
[2018-03-11 17:01] LABS: Hematocrit 36.6 % (37-47); Hemoglobin 11.6 g/dl (12.0-15.0); Mean Corp Hgb Conc 31.7 g/gl (32-36); Mean Corpuscular Hgb 31.2 pg (27.0-32.0); Mean Corpuscular Volume 98.4 fL (81-99); Mean Platelet Vol. 11.4 fl (6.2-12.0); Platelet Count 245 K/mm3 (150-450); RBC Distribution Width CV 13.7 % (11.6-14.6); RBC Distribution Width SD 46.4 fl (35.1-43.9); Red Blood Count 3.72 M/mm3 (4.2-5.4); Scan Indicated on CBC? Y/N NO; White Blood Count 4.9 K/mm3 (4.4-11.0)
== END 2018-03-08 13:00 | disposition home or self-care (01) ==
LOC: CLSP 03-10 14:36
PROVIDERS: Family Provider Internal Medicine; PCP Internal Medicine; Visit Provider Surgery
DX: T82.858A Stenosis of other vascular prosthetic devices, implants and grafts, initial encounter (principal); E10.22 Type 1 diabetes mellitus with diabetic chronic kidney disease; I12.9 Hypertensive chronic kidney disease with stage 1 through stage 4 chronic kidney disease, or unspecified chronic kidney disease; N18.4 Chronic kidney disease, stage 4 (severe); E78.5 Hyperlipidemia, unspecified; E03.9 Hypothyroidism, unspecified; E10.42 Type 1 diabetes mellitus with diabetic polyneuropathy; J45.909 Unspecified asthma, uncomplicated; M14.671 Charcot's joint, right ankle and foot; M19.90 Unspecified osteoarthritis, unspecified site; R01.1 Cardiac murmur, unspecified; F41.9 Anxiety disorder, unspecified; F32.9 Major depressive disorder, single episode, unspecified; Z99.2 Dependence on renal dialysis; Z87.01 Personal history of pneumonia (recurrent); Z78.0 Asymptomatic menopausal state; Z79.82 Long term (current) use of aspirin; Z79.4 Long term (current) use of insulin; Z79.899 Other long term (current) drug therapy
CPT/HCPCS: 36902; 76937; 80048; 85027; 99152; 99153; C1725; C1769

== ENCOUNTER 2018-03-25 14:38 | Emergency (ER) | payer MEDICARE, SELFPAY ==
[2018-03-25 14:39] VITALS: BP 158/79; PULSE 99; RESP 18; TEMP 37.3; O2SAT 99; BMI 24.9
--- NOTE | 2018-03-25 15:12 | CT_ITS ---
STUDY: CT BRAIN WITHOUT CONTRAST REASON FOR EXAM: Female, 57 years old. Recurrent headaches following dialysis RADIATION DOSAGE (If Supplied By Facility): CTDIvol = ( 44.99 ) mGy, DLP = ( 728.62 ) mGycm TECHNIQUE: Transaxial CT imaging of the brain was performed without administration of intravenous contrast material. Individualized dose optimization techniques were used for this CT. COMPARISON: None. FINDINGS: Normal soft tissue structures. Normal calvarium. There is mild cerebral atrophy with widening of the extra-axial spaces and ventricular dilatation. There are areas of decreased attenuation within the white matter tracts of the supratentorial brain, consistent with microvascular disease changes. Normal basal ganglia and thalami. Normal brainstem. There is mild cerebellar atrophy. There is no intracranial hemorrhage. There are no findings of an acute ischemic infarction. Normal visualized paranasal sinuses. CT/Brain/Head without Contrast IMPRESSION: Chronic involutional changes of the brain. Electronically Signed: Kenneth Hilton DO at 16:33 EDT Tel , Service support ,
--- NOTE | 2018-03-25 15:18 | ED.DCSUM_ITS ---
- ER Visit Summary Date of Service: 03/25/18 Chief Complaint: Headache History of Present Illness: The patient is a 57 F nontraumatic frontal headache started during dialysis today. Did had an episode 2 days ago during dialysis. No falls or head injuries. Complains of oral sensations. Nausea and vomiting ? 1. She has been on dialysis for last 3 months, followed by Dr. Pineda. Was told on Thursday by nephrology to take Motrin, however vomited up, symptoms resolved after 1 day. Patient states did have her potassium bath adjusted on Thursday due to low potassium. No history of migraines. Denies fever. Denies neck pain. Allergy to Compazine causing dystonia. Physical Examination: General: Alert and oriented ?3, no acute distress HEENT: Normocephalic, atraumatic. Moist mucosa membranes. Pupils equal reactive to light. Neck: supple, nontender. No meningismus Cardiovascular: Regular rate and rhythm, no murmurs Respiratory: Normal breath sounds, symmetric, no distress Abdomen: Soft, nontender, nondistended Extremities: Nontender, no edema, pulses intact ?4 Neuro: no focal neurological deficits. Cranial nerves II through XII intact. Test Results: BMP: Potassium 3.[address] head no acute process Emergency Department Course and Treatment: Patient with no meningismal findings. Migrainoid type symptoms. She was treated with Reglan and Benadryl. Due to being dialysis I did check a BMP which was normal. With no frequent headaches, CT head was obtained shows no acute process. On reevaluation patient 's symptoms were improved. She will be discharged with outpatient follow-up. 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 Treatment Plan: [] Disposition: Discharge Impression: 1. Migrainoid headache This note was generated with DataParentingation software. It may contain incorrect words, spelling, and punctuation that were not noted in review of the chart prior to signing ED Disposition - Plan for ED Patient: Disposition: Home or Assisted Living Chief Complaint: Headache Diagnosis: migrainoid headache with aura Instructions: ED Headache Migraine Referrals: Rober Melara Jr., MD [Primary Care Provider] - 3-5 Days
[2018-03-25] MEDS: DiphenhydrAMINE 50 MG/ML Syringe 25 MG IV (15:29)
[2018-03-25] MEDS: Metoclopramide 10 MG/2 ML Vial IV (15:29)
[2018-03-25 15:49] LABS: Anion Gap 3 (5-15); BUN 12 mg/dL (7-18); BUN/Creat Ratio 10.9 RATIO (10-20); Calcium,Total 8.4 mg/dL (8.5-10.1); Chloride 102 mmol/L (98-107); EST Glomerular Filtration Rate 54 mL/min (>60); Est Glom Filt Rate - Afr Amer 66 mL/min (>60); Estimated Creatinine Clearance 48.73 ml/min; Glucose 100 mg/dL (74-106); Potassium 3.9 mmol/L (3.5-5.1); Sodium Level 138 mmol/L (136-145)
== END 2018-03-25 17:01 | disposition home or self-care (01) ==
PROVIDERS: Emergency Provider Emergency Medicine; Family Provider Internal Medicine; PCP Internal Medicine
DX: G43.909 Migraine, unspecified, not intractable, without status migrainosus (principal); E11.22 Type 2 diabetes mellitus with diabetic chronic kidney disease; I12.0 Hypertensive chronic kidney disease with stage 5 chronic kidney disease or end stage renal disease; N18.6 End stage renal disease; Z99.2 Dependence on renal dialysis; Z79.82 Long term (current) use of aspirin; Z79.4 Long term (current) use of insulin; Z79.899 Other long term (current) drug therapy
CPT/HCPCS: 70450; 80048; 96374; 96375; 99283; A4216

== ENCOUNTER → 2018-04-01 09:58 | Outpatient (CLI) | payer MEDICARE, SELFPAY ==
[2018-04-01 10:32] LABS: Creatinine, Serum 2.18 mg/dL (0.55-1.02); EST Glomerular Filtration Rate 25 mL/min (>60); Est Glom Filt Rate - Afr Amer 30 mL/min (>60); Potassium 5.1 mmol/L (3.5-5.1)
== END ==
PROVIDERS: Family Provider Internal Medicine; PCP Internal Medicine; Visit Provider Internal Medicine Nephrology
DX: N19 Unspecified kidney failure (principal)
CPT/HCPCS: 36415; 82565; 84132

== ENCOUNTER → 2018-04-26 11:18 | Outpatient (CLI) | payer MEDICARE, SELFPAY ==
[2018-04-26 13:03] LABS: Albumin, Serum 2.8 g/dL (3.2-5.0); BUN 52 mg/dL (7-18); BUN/Creat Ratio 19.8 RATIO (10-20); Calcium,Total 9.2 mg/dL (8.5-10.1); Chloride 105 mmol/L (98-107); Creatinine, Serum 2.63 mg/dL (0.55-1.02); EST Glomerular Filtration Rate 20 mL/min (>60); Est Glom Filt Rate - Afr Amer 24 mL/min (>60); Glucose 180 mg/dL (74-106); Phosphorus 4.1 mg/dL (2.5-4.9); Potassium 5.2 mmol/L (3.5-5.1); Sodium Level 138 mmol/L (136-145)
== END ==
PROVIDERS: Family Provider Internal Medicine; PCP Internal Medicine; Visit Provider Internal Medicine Nephrology
DX: E87.5 Hyperkalemia (principal)
CPT/HCPCS: 36415; 80069

== ENCOUNTER → 2018-05-25 11:15 | Outpatient (CLI) | payer MEDICARE, MEDICAID, SELFPAY ==
[2018-05-25 12:23] LABS: Hematocrit 30.5 % (37-47); Hemoglobin 10.4 g/dl (12.0-15.0); Mean Corp Hgb Conc 34.1 g/gl (32-36); Mean Corpuscular Hgb 32.3 pg (27.0-32.0); Mean Corpuscular Volume 94.7 fL (81-99); Mean Platelet Vol. 11.2 fl (6.2-12.0); Platelet Count 227 K/mm3 (150-450); RBC Distribution Width CV 11.9 % (11.6-14.6); Red Blood Count 3.22 M/mm3 (4.2-5.4); White Blood Count 5.1 K/mm3 (4.4-11.0)
[2018-05-25 12:24] LABS: Scan Indicated on CBC? Y/N NO
[2018-05-25 12:49] LABS: Hemoglobin A1c 7.5 % (4.2-6.3)
[2018-05-25 13:00] LABS: Albumin, Serum 2.7 g/dL (3.2-5.0); BUN 47 mg/dL (7-18); BUN/Creat Ratio 18.6 RATIO (10-20); Calcium,Total 8.9 mg/dL (8.5-10.1); Chloride 104 mmol/L (98-107); Cholesterol 188 mg/dL (200); Creatinine, Serum 2.53 mg/dL (0.55-1.02); EST Glomerular Filtration Rate 21 mL/min (>60); Est Glom Filt Rate - Afr Amer 25 mL/min (>60); Glucose 213 mg/dL (74-106); High Density Lipoprotein 96 mg/dL; Phosphorus 3.9 mg/dL (2.5-4.9); Potassium 5.3 mmol/L (3.5-5.1); Sodium Level 141 mmol/L (136-145); T4 Free Direct 1.14 ng/dL (0.76-1.46); Thyroid Stim Hormone (TSH) 2.42 uIU/mL (0.358-3.74); Triglycerides 74 mg/dL; Very Low Density Lipoprotein 15 mg/dL (5-40)
[2018-05-26 09:05] LABS: PTHIN 93.8 pg/mL (18.4-80.1)
== END ==
PROVIDERS: Nurse Practitioner; Family Provider Internal Medicine; PCP Internal Medicine; Visit Provider Internal Medicine Nephrology
DX: E10.8 Type 1 diabetes mellitus with unspecified complications (principal); E03.9 Hypothyroidism, unspecified; N18.5 Chronic kidney disease, stage 5
CPT/HCPCS: 36415; 80061; 80069; 83036; 83970; 84439; 84443; 85027

== ENCOUNTER → 2018-07-02 10:29 | Outpatient (CLI) | payer MEDICARE, MEDICAID, SELFPAY ==
[2018-07-02 11:30] LABS: Albumin, Serum 2.7 g/dL (3.2-5.0); BUN 43 mg/dL (7-18); BUN/Creat Ratio 15.7 RATIO (10-20); Calcium,Total 9.1 mg/dL (8.5-10.1); Chloride 106 mmol/L (98-107); Creatinine, Serum 2.74 mg/dL (0.55-1.02); EST Glomerular Filtration Rate 19 mL/min (>60); Est Glom Filt Rate - Afr Amer 23 mL/min (>60); Glucose 188 mg/dL (74-106); Phosphorus 3.6 mg/dL (2.5-4.9); Potassium 4.9 mmol/L (3.5-5.1); Sodium Level 142 mmol/L (136-145)
== END ==
PROVIDERS: Family Provider Internal Medicine; PCP Internal Medicine; Referring Provider Internal Medicine Nephrology; Visit Provider Internal Medicine Nephrology
DX: N18.5 Chronic kidney disease, stage 5 (principal)
CPT/HCPCS: 36415; 80069

== ENCOUNTER 2018-07-23 06:51 | Day surgery (SDC) | payer MEDICARE, MEDICAID, SELFPAY ==
[2018-07-23] VITALS (7 sets, daily range): BP systolic 150–182; BP diastolic 61–87; PULSE 92–104; RESP 14–18; TEMP 36.6–37.3; O2SAT 100; BMI 30.2
[2018-07-23 08:10] LABS: Bedside Glucose 190 mg/dL (70-110)
--- NOTE | 2018-07-23 09:17 | OP.ENDO_ITS ---
Patient Name: Dee Dee Meléndez Procedure Date: 07/23/2018 8:41 AM Date of : 1960 Age: 57 Procedure: Colonoscopy Indications: Screening for colorectal malignant neoplasm Providers: Aguila Wagner MD Referring MD: Aguila Wagner MD Medicines: See the Anesthesia note for documentation of the administered medications Patient Profile: Last Colonoscopy: 2010. Complications: No immediate complications. Procedure: Pre-Anesthesia Assessment: - Prior to the procedure, a History and Physical was performed, and patient medications and allergies were reviewed. The patient's tolerance of previous anesthesia was also reviewed. The risks and benefits of the procedure and the sedation options and risks were discussed with the patient. All questions were answered, and informed consent was obtained. Prior Anticoagulants: The patient has taken aspirin, last dose was day of procedure. ASA Grade Assessment: III - A patient with severe systemic disease. After reviewing the risks and benefits, the patient was deemed in satisfactory condition to undergo the procedure. After I obtained informed consent, the scope was passed under direct vision. Throughout the procedure, the patient's blood pressure, pulse, and oxygen saturations were monitored continuously. The Colonoscope was introduced through the anus and advanced to the transverse colon. The colonoscopy was extremely difficult due to inadequate bowel prep. The patient tolerated the procedure well. The quality of the bowel preparation was unsatisfactory. The colonoscopy was aborted due to inadequate bowel prep. Scope In: 8:52:46 AM Scope Out: 9:09:58 AM Total Procedure Duration Time 0 hours 17 minutes 12 seconds Findings: The perianal and digital rectal examinations were normal. A large amount of stool was found in the rectum, in the sigmoid colon, in the descending colon, at the splenic flexure and in the transverse colon, precluding visualization. Impression: - Preparation of the colon was unsatisfactory. - The procedure was aborted due to inadequate bowel prep. - Stool in the rectum, in the sigmoid colon, in the descending colon, at the splenic flexure and in the transverse colon. - No specimens collected. Recommendation: - Discharge patient to home. - Resume previous diet. - Continue present medications. - Repeat colonoscopy in 2 weeks because the bowel preparation was poor. - Contact my office for rescheduling instructions. Procedure Code(s): --- Professional --- 79324, 53, Colonoscopy, flexible; diagnostic, including collection of specimen(s) by brushing or washing, when performed (separate procedure) CPT copyright 2017 [employer]. All rights reserved. The codes documented in this report are preliminary and upon front end developer javascript html css review may be revised to meet current compliance requirements. Aguila Wagner MD 07/23/2018 9:17:43 AM This report has been signed electronically. Number of Addenda: 0 Note Initiated On: 07/23/2018 8:41 AM
== END 2018-07-23 09:55 | disposition home or self-care (01) ==
LOC: EN 06:52 → AC 06:53
PROVIDERS: Family Provider Internal Medicine; PCP Internal Medicine; Referring Provider Surgery; Visit Provider Surgery
PROC: 0DJD8ZZ Inspection of Lower Intestinal Tract, Via Natural or Artificial Opening Endoscopic (ICD-10-PCS; CPT 45378; principal; 2018-07-23 07:55)
DX: Z12.11 Encounter for screening for malignant neoplasm of colon (principal); Z53.8 Procedure and treatment not carried out for other reasons; I25.10 Atherosclerotic heart disease of native coronary artery without angina pectoris; E10.22 Type 1 diabetes mellitus with diabetic chronic kidney disease; I13.2 Hypertensive heart and chronic kidney disease with heart failure and with stage 5 chronic kidney disease, or end stage renal disease; N18.5 Chronic kidney disease, stage 5; I50.9 Heart failure, unspecified; E78.00 Pure hypercholesterolemia, unspecified; E03.9 Hypothyroidism, unspecified; E10.43 Type 1 diabetes mellitus with diabetic autonomic (poly)neuropathy; K31.84 Gastroparesis; E10.42 Type 1 diabetes mellitus with diabetic polyneuropathy; J45.909 Unspecified asthma, uncomplicated; F41.9 Anxiety disorder, unspecified; F32.9 Major depressive disorder, single episode, unspecified; M19.90 Unspecified osteoarthritis, unspecified site; M81.0 Age-related osteoporosis without current pathological fracture; K21.9 Gastro-esophageal reflux disease without esophagitis; M51.36 Other intervertebral disc degeneration, lumbar region; R01.1 Cardiac murmur, unspecified; Z78.0 Asymptomatic menopausal state; Z86.2 Personal history of diseases of the blood and blood-forming organs and certain disorders involving the immune mechanism; Z87.440 Personal history of urinary (tract) infections; Z87.01 Personal history of pneumonia (recurrent); Z79.82 Long term (current) use of aspirin; Z79.4 Long term (current) use of insulin; Z79.899 Other long term (current) drug therapy
CPT/HCPCS: G0121; 82962; J7120

== ENCOUNTER → 2018-08-14 10:59 | Outpatient (CLI) | payer MEDICARE, SELFPAY ==
[2018-08-14 11:32] LABS: Hematocrit 30.5 % (37-47); Hemoglobin 9.9 g/dl (12.0-15.0); Mean Corp Hgb Conc 32.5 g/gl (32-36); Mean Corpuscular Hgb 30.7 pg (27.0-32.0); Mean Corpuscular Volume 94.7 fL (81-99); Mean Platelet Vol. 9.5 fl (6.2-12.0); Platelet Count 268 K/mm3 (150-450); RBC Distribution Width CV 12.2 % (11.6-14.6); RBC Distribution Width SD 41.7 fl (35.1-43.9); Red Blood Count 3.22 M/mm3 (4.2-5.4); White Blood Count 5.4 K/mm3 (4.4-11.0)
[2018-08-14 11:35] LABS: Scan Indicated on CBC? Y/N NO
[2018-08-14 11:55] LABS: Albumin, Serum 2.6 g/dL (3.2-5.0); BUN 37 mg/dL (7-18); BUN/Creat Ratio 14.9 RATIO (10-20); Calcium,Total 8.4 mg/dL (8.5-10.1); Chloride 106 mmol/L (98-107); Creatinine, Serum 2.49 mg/dL (0.55-1.02); EST Glomerular Filtration Rate 21 mL/min (>60); Est Glom Filt Rate - Afr Amer 26 mL/min (>60); Glucose 114 mg/dL (74-106); Phosphorus 3.9 mg/dL (2.5-4.9); Potassium 4.6 mmol/L (3.5-5.1); Sodium Level 140 mmol/L (136-145)
[2018-08-14 12:54] LABS: PTHIN 115.7 pg/mL (18.4-80.1)
== END ==
PROVIDERS: Family Provider Internal Medicine; PCP Internal Medicine; Referring Provider Internal Medicine Nephrology; Visit Provider Internal Medicine Nephrology
DX: N25.81 Secondary hyperparathyroidism of renal origin (principal); N18.5 Chronic kidney disease, stage 5
CPT/HCPCS: 36415; 80069; 83970; 85027

== ENCOUNTER → 2018-09-08 11:42 | Outpatient (CLI) | payer MEDICARE, SELFPAY ==
[2018-07-23 07:18] VITALS: BMI 30.2
== END ==
PROVIDERS: Family Provider Internal Medicine; PCP Internal Medicine; Referring Provider Internal Medicine Nephrology; Visit Provider Internal Medicine Nephrology
DX: N39.0 Urinary tract infection, site not specified (principal)
CPT/HCPCS: 87077; 87086; 87088; 87186

== ENCOUNTER → 2018-11-13 11:49 | Outpatient (CLI) | payer MEDICARE, SELFPAY ==
[2018-11-13 12:28] LABS: ALB/GLOB Ratio 0.8 RATIO (0.9-2.4); AST(SGOT) 18 U/L (15-37); Alanine Aminotransfer ALT/SGPT 32 U/L (13-56); Albumin, Serum 2.8 g/dL (3.2-5.0); Alkaline Phosphatase 108 U/L (45-117); Anion Gap 7 (5-15); BUN 42 mg/dL (7-18); BUN/Creat Ratio 13.9 RATIO (10-20); Calcium,Total 8.3 mg/dL (8.5-10.1); Chloride 105 mmol/L (98-107); Creatinine, Serum 3.02 mg/dL (0.55-1.02); EST Glomerular Filtration Rate 17 mL/min (>60); Est Glom Filt Rate - Afr Amer 21 mL/min (>60); Globulin 3.4 g/dL (2.2-4.2); Glucose 271 mg/dL (74-106); Potassium 4.5 mmol/L (3.5-5.1); Protein, Total 6.2 g/dL (6.4-8.2); Sodium Level 138 mmol/L (136-145)
[2018-11-13 12:29] LABS: Hemoglobin A1c 8.6 % (4.2-6.3)
== END ==
PROVIDERS: Nurse Practitioner; Family Provider Internal Medicine; PCP Internal Medicine; Referring Provider Internal Medicine Nephrology; Visit Provider Internal Medicine Nephrology
DX: E10.42 Type 1 diabetes mellitus with diabetic polyneuropathy (principal)
CPT/HCPCS: 36415; 80053; 83036

== ENCOUNTER → 2018-12-09 13:39 | Outpatient (CLI) | payer MEDICARE, SELFPAY ==
[2018-07-23 07:18] VITALS: BMI 30.2
[2018-12-09 13:17] VITALS: BMI 27.7
[2018-12-09 14:29] LABS: Hematocrit 28.3 % (37-47); Hemoglobin 9.2 g/dl (12.0-15.0); Mean Corp Hgb Conc 32.5 g/gl (32-36); Mean Corpuscular Hgb 30.8 pg (27.0-32.0); Mean Corpuscular Volume 94.6 fL (81-99); Mean Platelet Vol. 10.7 fl (6.2-12.0); Platelet Count 265 K/mm3 (150-450); RBC Distribution Width CV 12.2 % (11.6-14.6); RBC Distribution Width SD 41.3 fl (35.1-43.9); Red Blood Count 2.99 M/mm3 (4.2-5.4); White Blood Count 5.6 K/mm3 (4.4-11.0)
[2018-12-09 14:34] LABS: Scan Indicated on CBC? Y/N NO
[2018-12-09 14:54] LABS: Albumin, Serum 2.9 g/dL (3.2-5.0); BUN 34 mg/dL (7-18); BUN/Creat Ratio 12.2 RATIO (10-20); Calcium,Total 8.8 mg/dL (8.5-10.1); Chloride 107 mmol/L (98-107); Creatinine, Serum 2.79 mg/dL (0.55-1.02); EST Glomerular Filtration Rate 19 mL/min (>60); Est Glom Filt Rate - Afr Amer 22 mL/min (>60); Ferritin 404 ng/mL (8-252); Glucose 207 mg/dL (74-106); Iron 88 ug/dL (50-170); Iron Binding Capacity,Total 219 ug/dL (250-450); Phosphorus 3.4 mg/dL (2.5-4.9); Potassium 4.6 mmol/L (3.5-5.1); Sodium Level 142 mmol/L (136-145)
[2018-12-09 14:55] LABS: PTHIN 94.7 pg/mL (18.4-80.1); Vitamin D,25 Hydroxy 63.8 ng/mL (29.95-100.01)
== END ==
PROVIDERS: Visit Provider Surgery
DX: N18.4 Chronic kidney disease, stage 4 (severe) (principal); D50.9 Iron deficiency anemia, unspecified
CPT/HCPCS: 36415; 80069; 82306; 82728; 83540; 83550; 83970; 85027

== ENCOUNTER 2018-12-16 10:17 | Day surgery (SDC) | payer MEDICARE, SELFPAY ==
[2018-12-09 13:17] VITALS: BMI 27.7
[2018-12-14 12:47] VITALS: BMI 27.7
--- NOTE | 2018-12-16 13:23 | OP.PCM_ITS ---
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 58-year-old female taken to the special procedures lab placed on the table. 50 mcg of fentanyl 1 mg of Versed were given intravenous intravenous sedation. The left extremity sterilely prepped draped. Ultrasound was used to identify the basilic vein in the outflow tract close to the antecubital space medially toward the ulnar aspect. Under ultrasound guidance 2% lidocaine was instilled in retrograde with flow micropuncture needle was inserted micropuncture wire inserted 6 [place]erratian procedure dilator was inserted. Using an 035 Glidewire and a 4 [place]ian glide cath access was gained to the brachial artery proximal to the loop transposed basilic vein anastomosis. Using carbon dioxide fistulogram was obtained. This demonstrated that the proximal portion of the fistula for about 8 cm where the vein had been looped and transposed had diffuse areas of stenosis. The patient then received 5000 units of heparin. A SV 5 wire was placed. A 6 x 2 cutting balloon was inserted and multiple angioplasties of the proximal 8 cm of the fistula was performed. At the completion the glide cath was reinserted and a final carbon dioxide fistulogram demonstrated now improvement in the inflow of the fistula. The outflow from the apex of the loop up the arm and chest area is widely patent through the basilic vein. The left upper extremity cephalic vein not visualized. Impression Successfully treated loop left forearm basilic vein to brachial artery AV fistula. Proximal limb of the loop adjacent to the arterial anastomosis now widely patent. From the apex of the loop then as continuation of outflow of the basilic vein widely patent. No evidence of any central venous stenosis. Office follow-up in 1 week will be scheduled as well as 3-4 months as the patient is not yet on dialysis If the patient requires future intervention might consider a 7 mm balloon Aguila Wagner M.D., F.A.C.S. Type of Anesthesia:: IV Sedation, Local
[2018-12-16 13:56] LABS: Bedside Glucose 238 mg/dL (70-110)
== END 2018-12-16 14:25 | disposition home or self-care (01) ==
LOC: CLSP 10:18
PROVIDERS: Referring Provider Surgery; Visit Provider Surgery
DX: T82.858A Stenosis of other vascular prosthetic devices, implants and grafts, initial encounter (principal); E10.22 Type 1 diabetes mellitus with diabetic chronic kidney disease; I12.9 Hypertensive chronic kidney disease with stage 1 through stage 4 chronic kidney disease, or unspecified chronic kidney disease; N18.4 Chronic kidney disease, stage 4 (severe); Z99.2 Dependence on renal dialysis; E10.42 Type 1 diabetes mellitus with diabetic polyneuropathy; I25.10 Atherosclerotic heart disease of native coronary artery without angina pectoris; I34.0 Nonrheumatic mitral (valve) insufficiency; E03.9 Hypothyroidism, unspecified; E78.5 Hyperlipidemia, unspecified; D64.9 Anemia, unspecified; J45.909 Unspecified asthma, uncomplicated; F32.9 Major depressive disorder, single episode, unspecified; F41.9 Anxiety disorder, unspecified; E55.9 Vitamin D deficiency, unspecified; Z79.82 Long term (current) use of aspirin; Z79.4 Long term (current) use of insulin; Z79.899 Other long term (current) drug therapy; I25.2 Old myocardial infarction
CPT/HCPCS: 36902; 76937; 82962; 99152; 99153; C1725; C1769

== ENCOUNTER 2019-01-14 14:39 | Inpatient (IN) | payer MEDICARE, SELFPAY ==
[2018-12-14 12:47] VITALS: BMI 27.7
[2019-01-14] VITALS (9 sets, daily range): BP systolic 127–148; BP diastolic 56–65; PULSE 78–96; RESP 16–29; TEMP 36.6–36.9; O2SAT 91–99; BMI 35.9; BMI 34.7
--- NOTE | 2019-01-14 15:12 | EKG12_ITS ---
Test Reason : SOB Blood Pressure : / mmHG Vent. Rate : 095 BPM Atrial Rate : 095 BPM P-R Int : 118 ms QRS Dur : 080 ms QT Int : 334 ms P-R-T Axes : 069 010 057 degrees QTc Int : 419 ms Normal sinus rhythm Nonspecific ST and T wave abnormality Abnormal ECG Confirmed by LORNA CLEMENT ([id number]), order editor SHAMA CASAS ([id number]) on 01/17/2019 4:47:49 PM Referred By: Haroon Smith Confirmed By:LORNA CLEMENT
--- NOTE | 2019-01-14 15:12 | RAD_ITS ---
STUDY: X-RAY CHEST REASON FOR EXAM: Female, 58 years old. Shortness of breath. Overall body swelling. TECHNIQUE: Single AP portable view of the chest. COMPARISON: Comparison is made with prior study dated December 17, 2017. FINDINGS: EKG electrodes are seen. There is diffuse bilateral airspace disease. This is suggestive of pulmonary edema or bilateral pneumonias. Follow-up is recommended. There is no demonstrated pleural abnormality. There is mild cardiac enlargement. Normal mediastinum and donato. Normal visualized pulmonary arteries. Normal visualized aortic arch and descending thoracic aorta. Normal visualized thoracic spine. Normal visualized ribs, clavicles, and shoulders. There is no demonstrated abnormality of the visualized soft tissue structures of the upper abdomen. RAD/Chest 1 View (Portable) IMPRESSION: Bilateral diffuse airspace disease. Follow-up is recommended. Electronically Signed: Todd Zapien, at 15:38 EDT , Service support ,
--- NOTE | 2019-01-14 15:17 | ED.DCSUM_ITS ---
- ER Visit Summary Date of Service: 01/14/19 Chief Complaint: Shortness of breath History of Present Illness: The patient is a 58 F presenting with shortness of breath. States this has been ongoing for the past 3 days. She feels like she is retaining fluid. Shortness of breath is worsened with laying flat. She has had subjective fever and chills at home. She has had dry cough. She complains of chest heaviness which has been persistent for the past 3 days. She has a history of chronic kidney disease. She was taken off dialysis last March. History of congestive heart failure. She was taken off diuretics last March as well. Physical Examination: Vitals are stable. Patient is afebrile. Alert no acute distress. HEENT exam is unremarkable. Neck is supple. Lungs are diminished bilaterally. Heart is regular rate and rhythm. Abdomen is soft nontender distended. Extremities symmetric edema Skin is warm and dry. No focal neurologic deficit. Remainder of exam is unremarkable. Emergency Department Course and Treatment: EKG is sinus rate of 95 with no acute ischemic changes. Chest xray shows bilateral diffuse airspace disease. Follow- up is recommended. CBC shows hemoglobin 7.4, hematocrit 23.7. She states she checks her stool regularly and denies blood in her stool or black stool. Chemistries show potassium 5.4, glucose 246, BUN 57, creatinine 4.07. Previous creatinine was 2.79 one month ago. Troponin is negative. BNP 162.5. Discussed with the hospitalist. He requests Lasix IV. Patient will be admitted to telemetry. Disposition: Admission Impression: CHF, JAYLIN, anemia This note was generated with [employer] dictation software. It may contain incorrect words, spelling, and punctuation that were not noted in review of the chart prior to signing ED Disposition - Plan for ED Patient: Referrals: Care Physician,No Primary [Primary Care Provider] -
[2019-01-14] MEDS: Ondansetron 4 MG/2 ML Vial IV (15:28)
[2019-01-14 16:01] LABS: Absolute Lymphocyte Count 0.53 X10^3/ul (0.83-4.51); Basophil# 0.05 X10^3/uL; Basophil% 0.8 % (0-1); Eosinophil# 0.18 X10^3/uL; Hematocrit 23.7 % (37-47); Hemoglobin 7.4 g/dl (12.0-15.0); Lymphocyte # 0.53 X10^3/ul (4.0); Lymphocyte % 8.8 % (19-41); Mean Corp Hgb Conc 31.2 g/gl (32-36); Mean Corpuscular Hgb 30.8 pg (27.0-32.0); Mean Corpuscular Volume 98.8 fL (81-99); Mean Platelet Vol. 11.1 fl (6.2-12.0); Monocyte# 0.27 X10^3/uL; Monocyte% 4.5 % (0-10); Neutrophil # 4.99 X10^3/uL (2.7-7.7); Neutrophil % 82.7 % (47-70); Platelet Count 226 K/mm3 (150-450); RBC Distribution Width CV 12.1 % (11.6-14.6); RBC Distribution Width SD 43.4 fl (35.1-43.9)
[2019-01-14 16:03] LABS: Differential Indicated SCAN CRITERIA MET; POSITIVE COUNT NO; POSITIVE DIFFERENTIAL YES; POSITIVE MORPHOLOGY NO
[2019-01-14 16:17] LABS: Anion Gap 8 (5-15); BUN 57 mg/dL (7-18); Calcium,Total 8.5 mg/dL (8.5-10.1); Chloride 107 mmol/L (98-107); Creatinine, Serum 4.07 mg/dL (0.55-1.02); EST Glomerular Filtration Rate 12 mL/min (>60); Est Glom Filt Rate - Afr Amer 15 mL/min (>60); Estimated Creatinine Clearance 19.19 ml/min; Glucose 246 mg/dL (74-106); Potassium 5.4 mmol/L (3.5-5.1); Sodium Level 137 mmol/L (136-145)
[2019-01-14 16:28] LABS: Differential Comment SCANNED
[2019-01-14 16:36] LABS: BNP,B-Type NATRIURETIC PEPTIDE 162.5 pg/mL (0-100)
[2019-01-14] MEDS: Furosemide 40 MG/4 ML Vial IV (18:26)
--- NOTE | 2019-01-14 19:18 | PCM.HP.STD ---
Problem List (1) Acute on chronic anemia Status: Acute (2) Ascites Status: Chronic (3) Nonrheumatic mitral valve regurgitation Status: Chronic (4) History of non-ST elevation myocardial infarction (NSTEMI) Status: Acute (5) Atherosclerotic heart disease of [place] coronary artery without angina pectoris Status: Chronic (6) Chronic kidney disease, stage 4, severely decreased GFR Status: Chronic Comment: under care of nephrology. (7) Hyperkalemia Status: Acute (8) CHF (congestive heart failure) Status: Chronic Qualifiers: Heart failure type: diastolic Heart failure chronicity: acute Qualified Code(s): I50.31 - Acute diastolic (congestive) heart failure (9) Problem with dialysis access Status: Acute Qualifiers: Encounter type: initial encounter Qualified Code(s): T82.898A - Other specified complication of vascular prosthetic devices, implants and grafts, initial encounter (10) Diabetes type I Status: Chronic Qualifiers: Diabetes mellitus complication status: with unspecified complications Qualified Code(s): E10.8 - Type 1 diabetes mellitus with unspecified complications Comment: Dx : age 4 Last exacerbation : DKA : 2015 Hypoglycemic episode : 2016 ER visit : 2016 No data for review. Patient is ask to bring data to office for download. Discussed checking BG before meals and 2 hours post meal. Discussed carb counting meals and we reviewed how to carb count and also reading labels. We reviewd how to determine I/c ratios. Reviewed possibly using insulin pump in future. Is on arb. On statin. . (11) Chronic kidney disease, stage 4, severely decreased GFR Status: Chronic (12) HTN (hypertension) Status: Chronic Qualifiers: Hypertension type: essential hypertension Qualified Code(s): I10 - Essential (primary) hypertension (13) Hyperlipidemia Status: Chronic Qualifiers: Hyperlipidemia type: unspecified Qualified Code(s): E78.5 - Hyperlipidemia, unspecified Comment: Under care of cardiology. Will need to update labs. (14) Hypothyroidism Status: Chronic Qualifiers: Hypothyroidism type: unspecified Qualified Code(s): E03.9 - Hypothyroidism, unspecified Comment: Thyroid replacement d/cd although not sure why. Will need to check labs and determine why this is. Patient unable to answer. (15) Diabetic polyneuropathy Status: Chronic Qualifiers: Diabetes mellitus type: type 1 Qualified Code(s): E10.42 - Type 1 diabetes mellitus with diabetic polyneuropathy (16) Asthma Status: Chronic Qualifiers: Asthma severity: unspecified severity Asthma persistence: unspecified Asthma complication type: unspecified Qualified Code(s): J45.909 - Unspecified asthma, uncomplicated (17) Charcot's joint of right foot Status: Chronic History of Present Illness Date of Admission: 01/14/19 Chief Complaint: Shortness of breath for past 3-5 days The patient is a 58 year old F with multiple comorbidities including CKD stage IV even on temporary dialysis in the past, chronic heart failure with preserved EF, last echo December 2017 came to ED with shortness of breath for last 3-5 days. Patient has been gradually swelling up, lower extremities, abdomen, mild facial puffiness for 5 days, but seems in weeks in seeing the patient. Complain of mild chest heaviness, persistent in nature secondary to diaphragm being pushed up without change in characteristics with activity. Patient denies history of COPD or smoking. Chest x-ray in ED shows bilateral diffuse airspace disease suggestive of interstitial edema or bilateral pneumonia. Patient also has she had low-grade fever the past 3 days with dry, but denies sore throat. Past Medical History Past Medical History (Chronic Problems): Chronic Problems (Last Updated 12/23/18 @ 09:50 by Karime Mcrae) Ascites (Chronic) Nonrheumatic mitral valve regurgitation (Chronic) Atherosclerotic heart disease of [place] coronary artery without angina pectoris (Chronic) Chronic kidney disease, stage 4, severely decreased GFR (Chronic) under care of nephrology. CHF (congestive heart failure) (Chronic) Diabetes type I (Chronic) Dx : age 4 Last exacerbation : DKA : 2015 Hypoglycemic episode : 2016 ER visit : 2016 No data for review. Patient is ask to bring data to office for download. Discussed checking BG before meals and 2 hours post meal. Discussed carb counting meals and we reviewed how to carb count and also reading labels. We reviewd how to determine I/c ratios. Reviewed possibly using insulin pump in future. Is on arb. On statin. . Chronic kidney disease, stage 4, severely decreased GFR (Chronic) HTN (hypertension) (Chronic) Hyperlipidemia (Chronic) Under care of cardiology. Will need to update labs. Hypothyroidism (Chronic) Thyroid replacement d/cd although not sure why. Will need to check labs and determine why this is. Patient unable to answer. Diabetic polyneuropathy (Chronic) Asthma (Chronic) Charcot's joint of right foot (Chronic) Medical History: Medical History (Last Updated 12/23/18 @ 09:50 by Karime Mcrae) Nonrheumatic mitral valve regurgitation (Chronic) I34.0 History of non-ST elevation myocardial infarction (NSTEMI) (Acute) I25.2 Atherosclerotic heart disease of [place] coronary artery without angina pectoris (Chronic) I25.10 Diabetes type I (Chronic) Dx : age 4 Last exacerbation : DKA : 2015 Hypoglycemic episode : 2016 ER visit : 2016 No data for review. Patient is ask to bring data to office for download. Discussed checking BG before meals and 2 hours post meal. Discussed carb counting meals and we reviewed how to carb count and also reading labels. We reviewd how to determine I/c ratios. Reviewed possibly using insulin pump in future. Is on arb. On statin. . Chronic kidney disease, stage 4, severely decreased GFR (Chronic) N18.4 HTN (hypertension) (Chronic) I10 Hyperlipidemia (Chronic) E78.5 Under care of cardiology. Will need to update labs. Hypothyroidism (Chronic) E03.9 Thyroid replacement d/cd although not sure why. Will need to check labs and determine why this is. Patient unable to answer. Diabetic polyneuropathy (Chronic) E11.42 Asthma (Chronic) J45.909 Charcot's joint of right foot (Chronic) M14.671 Anemia D64.9 Anxiety and depression F41.9, F32.9 Arthritis M19.90 Bone fracture T14.8XXA Breast lump N63.0 Cataracts, bilateral H26.9 Chronic headaches R51 GI problem R19.8 H/O transfusion of whole blood Z92.89 Hives L50.9 Hormone deficiency E34.8 Hypoglycemia E16.2 Osteoporosis M81.0 Recurrent UTI N39.0 Seasonal allergies J30.2 Seizure R56.9 Vascular disease I99.9 Vision problem H54.7 Vitamin deficiency E56.9 abnormal calcium level Aortic valve disorder (Inactive) I35.9 Pneumonia (Inactive) J18.9 Allergies prednisone Allergy (Unknown, Verified 12/23/18 09:48) Unknown prochlorperazine edisylate [From Compazine] Adverse Reaction (Verified 12/23/18 09:48) Other i wig out prochlorperazine maleate [From Compazine] Adverse Reaction (Verified 12/23/18 09:48) Other Home Medications: Ambulatory Orders Medication Instructions Recorded Clonazepam [Klonopin] 0.5 mg PO Q8H PRN PRN 12/17/17 gabapentin 300 mg capsule 300 mg PO BID cap 12/18/17 aspirin 81 mg tablet,delayed 81 mg PO DAILY 04/08/18 release Insulin Glulisine [Apidra SoloStar See Rx Instructions SQ DAILY 11/22/18 U-100 Insulin] losartan 25 mg tablet 25 mg PO DAILY 12/14/18 Atorvastatin Calcium [Lipitor] 80 mg PO QHS 01/14/19 Citalopram Hydrobromide 20 mg PO QHS 01/14/19 [Citalopram HBr] Docusate Sodium [Colace] 100 mg PO DAILY 01/14/19 Insulin Detemir [Levemir FlexPen] 8 units SQ BID 01/14/19 Levothyroxine [Synthroid] 137 mcg PO DAILY 01/14/19 Surgical History: Surgical History (Last Updated 12/23/18 @ 09:51 by Karime Mcrae) history fistulagram Onset Date: ~12/16/18 left arm fistula creation 08/07/17 H/O dilation and curettage Z98.890 H/O tubal ligation Z98.51 History of amputation of right great toe Z98.890, Z89.411 History of hand surgery Z98.890 Hx of cataract surgery Z98.49 Wrist fracture S62.109A raquel removal r leg tibula/fibula surgery Surgical History: dilatation and curettage, - - Tubal Ligation 1985; Dilation and currettage 1984, 2006; Right knee Tib fx with hardware ;LUE Fistula, currently maturing. Smoking Status: Never smoker Tobacco Use: Non-smoker - *Family History Maternal Family History: Family History (Last Reviewed 12/23/18 @ 09:49 by Kraime Mcrae) Mother Arthritis Cancer Hormone deficiency Thyroid disorder Osteoporosis Skin cancer Father Arthritis Diabetes Heart disease Hypertension High cholesterol CVA (cerebral vascular accident) History Items: Cancer - lung, melanoma Paternal Family History: Family History (Last Reviewed 12/23/18 @ 09:49 by Karime Mcrae) Mother Arthritis Cancer Hormone deficiency Thyroid disorder Osteoporosis Skin cancer Father Arthritis Diabetes Heart disease Hypertension High cholesterol CVA (cerebral vascular accident) History Items: Diabetes Review of Systems Constitutional: Reports: Chills, Fever HEENT: Denies: Head Aches, Sinus Congestion, Sinus Drainage Cardiovascular: Reports: Chest Pain, Edema. Denies: Palpitations Respiratory: Reports: Shortness of breath upon exertion. Denies: Cough, Shortness of breath at rest, Sputum production Gastrointestinal: Denies: Abdominal Pain, Nausea, Vomiting Genitourinary: Reports: - - Denies decrease in urine output the last 6 months. Denies: Dysuria, Frequency Musculoskeletal: Reports: Joint Tenderness. Denies: Joint Pain Skin: Denies: Rash, Wounds Neurological: Reports: Balance problems. Denies: Focal weakness, Numbness, Tingling Psychiatric: Denies: Anxiety, Depression, Homicidal Ideations, Suicidal Ideations Hematologic/ Lymphatic: Denies: Easy Bruising, Easy Bleeding VTE Information - Inpt Only VTE Present on Admission: No VTE Mechan Device Prophylaxis: None VTE Pharm Prophylaxis ordered?: Yes Patient Problems: Active and Suspected Problems (Last Updated 12/23/18 @ 09:50 by Karime Mcrae) Acute on chronic anemia (Acute) - Physical Exam General: Alert, Oriented x3, Cooperative HEENT: Atraumatic, PERRLA, EOMI, Normocephalic Neck: Supple, No JVD, Negative Carotid Bruits Lungs: Diminished - Air entry severely diminished in lower lungs., Rales Cardiovascular: Regular rate, Regular Rhythm, Normal S1, Normal S2, No murmurs Abdomen: Bowel Sounds Present, Soft, Non Tender, - - Shifting dullness present suggestive of ascites Extremities: Capillary Refill Less than 3 Seconds, Edema Skin: No rashes, No breakdown Musculoskeletal: No Tenderness to Palpation of Joints or Extremities, Arthritic Changes Lymphatic: No Cervical, Supraclavicular, or Inguinal Adenopathy Neurological: Cranial nerves II-XII grossly intact, Deep Tendon Reflexes 2+/4 and Symmetrical, Neuro grossly intact Psych/Mental Status: Normal Affect, Appropriate Vital Signs Temp Pulse Resp BP Pulse Ox 98.1 F 93 20 H 127/65 H 95 01/14/19 17:21 01/14/19 18:21 01/14/19 17:21 01/14/19 17:21 01/14/19 17:21 Oxygen Flow Rate (L/min) 2 Oxygen Delivery Method Nasal Cannula Weight: 172 lb 2.896 oz Body Mass Index (BMI) 34.7 Finger Stick Blood Glucose 341 Intake and Output for Last 24 Hours 01/12/19 01/13/19 01/14/19 23:59 23:59 23:59 Intake Total 240 / 240 Balance 240 / 240 Laboratory Tests Past 24 Hrs 01/14/19 01/14/19 01/14/19 15:50 15:50 15:50 WBC 6.0 RBC 2.40 L Hgb 7.4 L Hct 23.7 L MCV 98.8 MCH 30.8 MCHC 31.2 L RDW 12.1 RDW Differential 43.4 Plt Count 226 MPV 11.1 Immature Gran % (Auto) 0.200 Neut % (Auto) 82.7 H Lymph % (Auto) 8.8 L [place] % (Auto) 4.5 Eos % (Auto) 3.0 Baso % (Auto) 0.8 Absolute Neuts (auto) 5.0 Absolute Lymphs (auto) 0.53 L Total Counted Not Reportable Differential Comment SCANNED Sodium 137 Potassium 5.4 H Chloride 107 Carbon Dioxide 22.0 Anion Gap 8 BUN 57 H Creatinine 4.07 H Estim Creat Clear Calc 19.19 Est GFR (MDRD) Af Amer 15 L Est GFR (MDRD) Non-Af 12 L BUN/Creatinine Ratio 14.0 Glucose 246 H Calcium 8.5 Troponin I < 0.015 B-Natriuretic Peptide 162.5 H Assessment/Plan All Active Problems (Last Updated 12/23/18 @ 09:50 by Karime Mcrae) Acute on chronic anemia (Acute) History of non-ST elevation myocardial infarction (NSTEMI) (Acute) Hyperkalemia (Acute) Problem with dialysis access (Acute) DKA (diabetic ketoacidoses) (Resolved) NSTEMI (non-ST elevated myocardial infarction) (Resolved) Syncope (Resolved) The patient is a 58 year old F with multiple comorbidities including CKD stage IV even on temporary dialysis in the past, chronic heart failure with preserved EF, last echo December 2017 came to ED with shortness of breath for last 3-5 days. Patient has been gradually swelling up, lower extremities, abdomen, mild facial puffiness for 5 days, but seems in weeks in seeing the patient. Complain of mild chest heaviness, persistent in nature secondary to diaphragm being pushed up without change in characteristics with activity. Patient denies history of COPD or smoking. Chest x-ray in ED shows bilateral diffuse airspace disease suggestive of interstitial edema or bilateral pneumonia. Patient also has she had low-grade fever the past 3 days with dry, but denies sore throat. 1. Anasarca (lower extremity edema, ascites and facial puffiness) most probably secondary to acute kidney injury on CKD stage IV: Patient is being admitted in PCU. Her baseline BUN/creatinine runs around 40s/3.0. Currently it is 57/4.07. K is 5.4. Started on Lasix 40 mg IV every 12 hourly. Nephrology consult. Titrate the dose of Lasix accordingly. Monitor intake and output. Monitor electrolytes, weight and kidney function. Hold nephrotoxic medication. Right upper quadrant sonogram ordered to look for ascites related to therapeutic paracentesis. 2. Possible bilateral community acquired pneumonia: Patient is empirically started on IV ceftriaxone and Zithromax, though there is low suspicion of pneumonia. Pneumonia workup with urinary antigens, respiratory panel, sputum culture if patient brings up sputum. Repeat chest x-ray in 2 days and if pneumonia workup is negative, discontinue antibiotics 3. Acute on Chronic diastolic heart failure: BNP is 162 which is mildly elevated. Repeat ECHO. 4. Diabetes mellitus type 1 with diabetic polyneuropathy: Continue Levemir. Accu-Chek S and this is currently total sliding scale. 5. Acute on chronic anemia mostly secondary to CKD stage IV: Monitor H&H every 8 hourly and if low will need PRBC transfusion. Iron panel and ferritin ordered. 6. Other multiple comorbidities include hypothyroidism, asthma, hypertension, dyslipidemia: Home medication reconciliation done. TSH and free T4 ordered. Living will/advanced directive: Patient is daughter Ms. Stephany Meléndez is power of family law attorney for health. She wants to be full code. If she is terminal on ventilator for many days wanted to be further discuss with daughter to discontinue ventilator [] Clinical Impression(s) from Imaging Studies Chest X-Ray 01/14/19 15:12 IMPRESSION: Bilateral diffuse airspace disease. Follow-up is recommended. Code Visit Inpatient E&M: 08475 Init Hosp L3
[2019-01-14 20:46] LABS: Hematocrit 23.3 % (37-47); Hemoglobin 7.4 g/dl (12.0-15.0)
[2019-01-14] MEDS: Ceftriaxone 1 GM/50 ML BAG IV (23:14)
[2019-01-14] MEDS: 0.9% NaCl Peripheral Flush Adult/Peds IV (23:22)
[2019-01-14] MEDS: Atorvastatin Calcium 80 MG Tablet PO (23:24)
[2019-01-14] MEDS: guaiFENesin 1,200 MG Tablet 1200 MG PO (23:24)
[2019-01-14] MEDS: Gabapentin 300 MG Capsule PO (23:24)
[2019-01-14 23:51] LABS: Bedside Glucose 453 mg/dL (70-110)
[2019-01-15] VITALS (26 sets, daily range): BP systolic 124–147; BP diastolic 54–89; PULSE 66–787; RESP 13–27; TEMP 36.4–36.9; O2SAT 93–100
[2019-01-15] MEDS: 0.9% NaCl Peripheral Flush Adult/Peds IV ×2 (00:10→23:08)
[2019-01-15 00:29] LABS: Glucose 507 mg/dL (74-106)
[2019-01-15] MEDS: Citalopram 20 MG Tablet PO ×2 (00:39→22:24)
[2019-01-15] MEDS: Insulin Lispro 100 UNIT/ML INSULN.PEN 20 UNIT SC (00:48)
[2019-01-15 01:11] LABS: M R Staph aureus DNA By PCR Negative (Negative); Probe Check PASS; Specimen Processing Control PASS
[2019-01-15 03:08] LABS: Immature Platelet Fraction 5.5 % (1.0-7.9); RET-HE 27.2 pg (30-35); Reticulocyte Count 1.61 % (0.5-1.5)
[2019-01-15] MEDS: Levothyroxine 137 MCG Tablet PO (05:42)
--- NOTE | 2019-01-15 05:55 | ECHOD_ITS ---
Reason For Study: CHF Procedure This was a 2D Doppler, Color Flow transthoracic echocardiogram. The study was technically difficult. Did not use Definity due to increased PAP. Exam performed portable in patient room. Left Ventricle Normal size and thickness. The estimated ejection fraction is 65 %. Stage 1 diastolic dysfunction. No regional wall motion abnormalities noted. Right Ventricle Mildly dilated right ventricle. Normal systolic function. Atria Normal left atrium. Normal right atrium. Normal atrial septum. Mitral Valve Mild diffuse mitral valve thickening. Mild (1+) eccentric mitral valve insufficiency. Tricuspid Valve Normal tricuspid valve. Mild (1+) tricuspid valve insufficiency. Right ventricular systolic pressure estimated to be 50 mmHg. Moderate pulmonary hypertension. Aortic Valve Trisinus/trileaflet aortic valve. Aortic sclerosis, no stenosis. Pulmonic Valve Normal pulmonic valve. Trivial pulmonic valve insufficiency. Great Vessels Normal aortic root. Normal arch. The inferior vena cava is dilated. No collapse of the inferior vena cava. Pericardium/Pleural No pericardial effusion. MMode/2D Measurements & Calculations LVIDd: 4.8 cm IVSd: 1.1 cm Ao root diam: 2.5 cm LVIDs: 2.9 cm LVPWd: 1.1 cm RVDd: 3.8 cm FS: 38.8 % LAV(MOD-bp): 52.7 ml LA A4 area: 19.6 cm2 LA dimension(2D): 3.5 cm LAV(MOD-bp) Indexed: 30.4 ml/m2 LAV(MOD-sp2): 41.3 ml LAV(MOD-sp4): 54.2 ml RA A4 area: 10.2 cm2 Doppler Measurements & Calculations MV E max aaron: 109.8 cm/sec Lat Peak E' Aaron: 9.4 cm/sec Med Peak E' Aaron: 7.7 cm/sec MV A max aaron: 110.6 cm/sec E/E' lat: 11.7 E/E' med: 14.2 MV E/A: 0.99 Ao V2 max: 164.6 cm/sec LV V1 max: 107.6 cm/sec PA V2 max: 98.2 cm/sec Ao max P.8 mmHg LV V1 max P.6 mmHg Ao V2 mean: 116.1 cm/sec Ao mean P.8 mmHg Ao V2 VTI: 35.1 cm TR max aaron: 333.4 cm/sec TR max P.5 mmHg Interpretation Summary The estimated ejection fraction is 65 %. Stage 1 diastolic dysfunction. Mildly dilated right ventricle. Mild (1+) eccentric mitral valve insufficiency. Mild (1+) tricuspid valve insufficiency. Right ventricular systolic pressure estimated to be 50 mmHg. Moderate pulmonary hypertension. The inferior vena cava is dilated Compared to echo report dated 12/13/2017, LV function has remained the same, but RVSP has increased from 40 to 50 mm Hg. Ordering Physician: Haroon Smith Referring Physician: Haroon Smith Performed By: Libra Tyler, CHETAN, RVT
--- NOTE | 2019-01-15 05:55 | US_ITS ---
STUDY: ABDOMINAL ULTRASOUND - RIGHT UPPER QUADRANT REASON FOR VISIT: Female, 58 years old. Ascites and abdominal bloating. TECHNIQUE: Ultrasound evaluation of the right upper quadrant was performed with real-time and static natarajan-scale imaging. TECHNICAL QUALITY: Adequate. COMPARISON: None. FINDINGS: Liver: The liver measures 17.2 cm. There is normal echogenicity of the liver. The bile ducts are within normal limits. There is hepatic color flow. The direction of portal flow is hepatopetal. There is no demonstrated mass lesion. Gallbladder: Normal distended gallbladder. The gallbladder wall measures 2.9 mm. There is a negative sonographic Dyer's sign. There is no pericholecystic fluid. There are no gallstones. Common Bile Duct (C.B.D.): The common bile duct measures 2.6 mm. Pancreas: Pancreatic head and body are partially visualized however the tail is incompletely seen due to overlying bowel gas. There is normal echogenicity of the pancreas. There is no demonstrated pancreatic mass or cyst. Right Kidney: Normal size of the right kidney. The right kidney measures 10.2 x 4.5 x 3.5 cm. Renal cortical hyperintense appearance consistent with chronic renal disease is present. The right cortex measures 1.0 cm. There is no demonstrated renal mass or cyst. There is no right hydronephrosis. There is demonstrated perinephric stranding surrounding the right kidney on exam. 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 There is mild fluid surrounding the liver with no evidence of large abdominal ascites. US/Abdomen Limited IMPRESSION: 1. Mild fluid surrounding the liver margin with no evidence of large abdominal ascites. 2. Likely chronic renal changes of the right kidney with noted perinephric stranding, clinically correlate for underlying acute inflammation. 3. Limited view of the pancreas due to overlying bowel gas. Electronically Signed: Eric Gomez DO at 9:41 EDT , Service support ,
[2019-01-15 06:51] LABS: ALB/GLOB Ratio 0.7 RATIO (0.9-2.4); AST(SGOT) 10 U/L (15-37); Alanine Aminotransfer ALT/SGPT 19 U/L (13-56); Albumin, Serum 2.4 g/dL (3.2-5.0); Alkaline Phosphatase 121 U/L (45-117); Anion Gap 10 (5-15); BUN 70 mg/dL (7-18); BUN/Creat Ratio 15.5 RATIO (10-20); Calcium,Total 7.7 mg/dL (8.5-10.1); Chloride 103 mmol/L (98-107); Cholesterol 140 mg/dL (200); Creatinine, Serum 4.53 mg/dL (0.55-1.02); EST Glomerular Filtration Rate 11 mL/min (>60); Est Glom Filt Rate - Afr Amer 13 mL/min (>60); Estimated Creatinine Clearance 16.69 ml/min; Ferritin 383 ng/mL (8-252); Globulin 3.5 g/dL (2.2-4.2); Glucose 570 mg/dL (74-106); High Density Lipoprotein 57 mg/dL; Iron 29 ug/dL (50-170); Iron Binding Capacity,Total 185 ug/dL (250-450); Magnesium 2.2 mg/dL (1.6-2.6); PERCENT IRON SATURATION 15.7 % (15.0-55.0); Potassium 7.4 mmol/L (3.5-5.1); Protein, Total 5.9 g/dL (6.4-8.2); Sodium Level 132 mmol/L (136-145); T4 Free Direct 0.91 ng/dL (0.76-1.46); Thyroid Stim Hormone (TSH) 2.46 uIU/mL (0.358-3.74); Triglycerides 61 mg/dL; Very Low Density Lipoprotein 12 mg/dL (5-40)
--- NOTE | 2019-01-15 07:15 | EKG12_ITS ---
Test Reason : ARRYTHMIA Blood Pressure : / mmHG Vent. Rate : 078 BPM Atrial Rate : 078 BPM P-R Int : 120 ms QRS Dur : 088 ms QT Int : 392 ms P-R-T Axes : 021 010 006 degrees QTc Int : 446 ms Normal sinus rhythm Normal ECG When compared with ECG of 14-JAN-2019 14:40, MANUAL COMPARISON REQUIRED, DATA IS UNCONFIRMED Confirmed by JENNYFER SARKAR, JORDAN ([id number]), editor producer SHAMA CASAS ([id number]) on 01/19/2019 1:41:15 PM Referred By: Haroon Smith Confirmed By:JORDAN BURGER MD
[2019-01-15 07:18] LABS: Hemoglobin A1c 8.8 % (4.2-6.3)
[2019-01-15 07:22] LABS: Bedside Glucose > 500 mg/dL (70-110)
--- NOTE | 2019-01-15 07:46 | NURSING ---
Report called to Rochelle RN in ICU. Dr. Workman in pt. room at this time. Pt. having Echo done at this time.
--- NOTE | 2019-01-15 07:57 | NURSING ---
Per pt. request, called patient's daughter, Veronique, to inform her of pt. moving to ICU. No answer at phone number and mail box full on phone. Dayshift nurse and pt. notified that daughter could not be reached.
[2019-01-15] MEDS: Sodium Polystyrene Sulfonate 15 GM/60 ML UDC 30 GM PO (08:25)
--- NOTE | 2019-01-15 08:32 | CON.PCM_ITS ---
Reason for Consult Date of Consultation: 01/15/19 Reason for Consultation: Anemia/hyperkalemia/non-gap metabolic acidosis History of Present Illness: The patient is a 58-year-old female, with a history as outlined below, who presented to the emergency department on January 14 with shortness of breath, orthopnea, subjective fevers, nonproductive cough and increasing abdominal girth. She reports significant recent weight gain. The patient has known CKD stage V due to diabetes mellitus and has been followed previously by Dr. Pineda. She did, for a period of time, require hemodialysis. This was last required in March. She does currently have an AV fistula in place. On presentation to the emergency department, the patient was noted to be afebrile and hemodynamically stable. She was initially documented to be saturating 91% on room air. Laboratory evaluation revealed no evidence of a sukhi kocytosis. Hemoglobin was noted to be 7.4 g/dL. On December 09, 2018, the patient's hemoglobin was noted to be 9.2 g/dL. Normocytic blood indices were noted. Chemistry profile revealed a potassium of 5.4 and acute on chronic kidney disease with a creatinine of 4.07. Troponin was negative. Plain film chest x-ray revealed diffuse bilateral airspace disease. The patient was started on IV diuretic therapy and admitted to the progressive care unit for ongoing management. On arrival to the medical floor, she was started on community-acquired antimicrobial coverage. Over the course of the night, the patient's potassium increased to 7.4 and her creatinine worsened to 4.53 with a corresponding non-gap metabolic acidosis. Glucose was also noted to be significantly elevated to 570. Iron studies were obtained. She remains hemodynamically stable and afebrile. She is currently requiring 2 L/min of supplemental oxygen to maintain appropriate oxygen saturations. Surface echocardiogram is currently being performed. Nephrology consultation is pending. Due to concerns over potential clinical decompensation, the patient was transferred to the medical intensive care unit for ongoing management. Past Medical History Past Medical History (Chronic Problems): Chronic Problems (Last Updated 12/23/18 @ 09:50 by Karime Mcrae) Ascites (Chronic) Nonrheumatic mitral valve regurgitation (Chronic) Atherosclerotic heart disease of [place] coronary artery without angina pectoris (Chronic) Chronic kidney disease, stage 4, severely decreased GFR (Chronic) under care of nephrology. CHF (congestive heart failure) (Chronic) Diabetes type I (Chronic) Dx : age 4 Last exacerbation : DKA : 2015 Hypoglycemic episode : 2016 ER visit : 2016 No data for review. Patient is ask to bring data to office for download. Discussed checking BG before meals and 2 hours post meal. Discussed carb counting meals and we reviewed how to carb count and also reading labels. We reviewd how to determine I/c ratios. Reviewed possibly using insulin pump in future. Is on arb. On statin. . Chronic kidney disease, stage 4, severely decreased GFR (Chronic) HTN (hypertension) (Chronic) Hyperlipidemia (Chronic) Under care of cardiology. Will need to update labs. Hypothyroidism (Chronic) Thyroid replacement d/cd although not sure why. Will need to check labs and determine why this is. Patient unable to answer. Diabetic polyneuropathy (Chronic) Asthma (Chronic) Charcot's joint of right foot (Chronic) Medical History: Medical History (Last Updated 12/23/18 @ 09:50 by Karime Mcrae) Nonrheumatic mitral valve regurgitation (Chronic) I34.0 History of non-ST elevation myocardial infarction (NSTEMI) (Acute) I25.2 Atherosclerotic heart disease of [place] coronary artery without angina pectoris (Chronic) I25.10 Diabetes type I (Chronic) Dx : age 4 Last exacerbation : DKA : 2014 Hypoglycemic episode : 2016 ER visit : 2016 No data for review. Patient is ask to bring data to office for download. Discussed checking BG before meals and 2 hours post meal. Discussed carb counting meals and we reviewed how to carb count and also reading labels. We reviewd how to determine I/c ratios. Reviewed possibly using insulin pump in future. Is on arb. On statin. . Chronic kidney disease, stage 4, severely decreased GFR (Chronic) N18.4 HTN (hypertension) (Chronic) I10 Hyperlipidemia (Chronic) E78.5 Under care of cardiology. Will need to update labs. Hypothyroidism (Chronic) E03.9 Thyroid replacement d/cd although not sure why. Will need to check labs and determine why this is. Patient unable to answer. Diabetic polyneuropathy (Chronic) E11.42 Asthma (Chronic) J45.909 Charcot's joint of right foot (Chronic) M14.671 Anemia D64.9 Anxiety and depression F41.9, F32.9 Arthritis M19.90 Bone fracture T14.8XXA Breast lump N63.0 Cataracts, bilateral H26.9 Chronic headaches R51 GI problem R19.8 H/O transfusion of whole blood Z92.89 Hives L50.9 Hormone deficiency E34.8 Hypoglycemia E16.2 Osteoporosis M81.0 Recurrent UTI N39.0 Seasonal allergies J30.2 Seizure R56.9 Vascular disease I99.9 Vision problem H54.7 Vitamin deficiency E56.9 abnormal calcium level Aortic valve disorder (Inactive) I35.9 Pneumonia (Inactive) J18.9 Allergies prednisone Allergy (Unknown, Verified 12/23/18 09:48) Unknown prochlorperazine edisylate [From Compazine] Adverse Reaction (Verified 12/23/18 09:48) Other i wig out prochlorperazine maleate [From Compazine] Adverse Reaction (Verified 12/23/18 09:48) Other Home Medications: Ambulatory Orders Medication Instructions Recorded Clonazepam [Klonopin] 0.5 mg PO Q8H PRN PRN 12/17/17 gabapentin 300 mg capsule 300 mg PO BID cap 12/18/17 aspirin 81 mg tablet,delayed 81 mg PO DAILY 04/08/18 release Insulin Glulisine [Apidra SoloStar See Rx Instructions SQ DAILY 11/22/18 U-100 Insulin] losartan 25 mg tablet 25 mg PO DAILY 12/14/18 Atorvastatin Calcium [Lipitor] 80 mg PO QHS 01/14/19 Citalopram Hydrobromide 20 mg PO QHS 01/14/19 [Citalopram HBr] Docusate Sodium [Colace] 100 mg PO DAILY 01/14/19 Insulin Detemir [Levemir FlexPen] 8 units SQ BID 01/14/19 Levothyroxine [Synthroid] 137 mcg PO DAILY 01/14/19 Surgical History: Surgical History (Last Updated 12/23/18 @ 09:51 by Karime Mcrae) history fistulagram Onset Date: ~12/16/18 left arm fistula creation 17 H/O dilation and curettage Z98.890 H/O tubal ligation Z98.51 History of amputation of right great toe Z98.890, Z89.411 History of hand surgery Z98.890 Hx of cataract surgery Z98.49 Wrist fracture S62.109A raquel removal r leg tibula/fibula surgery Surgical History: dilatation and curettage, - - Tubal Ligation 1985; Dilation and currettage 1984, 2006; Right knee Tib fx with hardware ;LUE Fistula, currently maturing. Smoking Status: Never smoker Tobacco Use: Non-smoker - *Family History Maternal Family History: Family History (Last Reviewed 12/23/18 @ 09:49 by Karime Mcrae) Mother Arthritis Cancer Hormone deficiency Thyroid disorder Osteoporosis Skin cancer Father Arthritis Diabetes Heart disease Hypertension High cholesterol CVA (cerebral vascular accident) History Items: Cancer - lung, melanoma Paternal Family History: Family History (Last Reviewed 12/23/18 @ 09:49 by Karime Mcrae) Mother Arthritis Cancer Hormone deficiency Thyroid disorder Osteoporosis Skin cancer Father Arthritis Diabetes Heart disease Hypertension High cholesterol CVA (cerebral vascular accident) History Items: Diabetes Review of Systems Constitutional: Reports: Chills, Fever, Weight Change Eyes: Denies: Blurred vision, Double vision HEENT: Denies: Head Aches, Sinus Congestion, Sinus Drainage Cardiovascular: Reports: Edema, Orthopnea Respiratory: Reports: Cough, Shortness of Breath. Denies: Sputum production Gastrointestinal: Denies: Abdominal Pain, Nausea, Vomiting Genitourinary: Denies: Dysuria Musculoskeletal: Denies: Joint Pain, Joint Tenderness Skin: Denies: Rash, Wounds Neurological: Denies: Numbness, Tingling, Focal weakness Psychiatric: Denies: Anxiety, Depression, Homicidal Ideations, Suicidal Ideations Hematologic/ Lymphatic: Reports: Anemia Patient Problems: Active and Suspected Problems (Last Updated 12/23/18 @ 09:50 by Karime Mcrae) Acute on chronic anemia (Acute) Objective: The patient's most recent lab work, culture data and imaging studies have all been personally reviewed. Surface echocardiogram from December 2017 revealed evidence of stage I diastolic dysfunction with an ejection fraction of 65%. Right ventricular systolic pressure was estimated to be 40 mmHg. - Physical Exam General: Alert, Oriented x3, Cooperative, No apparent distress HEENT: Atraumatic, PERRLA, Normocephalic Oral: No Gingival or Mucosal Lesions/ Ulcerations Neck: Supple, No Nodes, Trachea Midline Lungs: No rhonchi, No wheeze, No rales, Diminished Cardiovascular: Regular rate, Regular Rhythm, Normal S1, Normal S2, No murmurs Abdomen: Bowel Sounds Present, Soft, Distended, Obese Extremities: No clubbing, No cyanosis, Edema Skin: No breakdown Musculoskeletal: No Muscle Wasting Lymphatic: No Cervical, Supraclavicular, or Inguinal Adenopathy Neurological: Cranial nerves II-XII grossly intact, Neuro grossly intact Psych/Mental Status: Alert and oriented to time, place, person, mood and affect Vital Signs Temp Pulse Resp BP Pulse Ox 36.6 C 78 20 H 139/58 H 96 01/15/19 05:20 01/15/19 07:08 01/15/19 05:20 01/15/19 05:20 01/15/19 07:30 Oxygen Flow Rate (L/min) 2 Oxygen Delivery Method Nasal Cannula Weight: 173 lb 11.588 oz Body Mass Index (BMI) 34.7 Finger Stick Blood Glucose 341 Intake and Output for Last 24 Hours 01/13/19 01/14/19 01/15/19 23:59 23:59 23:59 Intake Total 346 / 346 408 / 408 Output Total 300 / 300 0 / 0 Balance 46 / 46 408 / 408 Laboratory Tests Past 24 Hrs 01/14/19 01/14/19 01/14/19 15:50 15:50 15:50 WBC 6.0 RBC 2.40 L Hgb 7.4 L Hct 23.7 L MCV 98.8 MCH 30.8 MCHC 31.2 L RDW 12.1 RDW Differential 43.4 Plt Count 226 MPV 11.1 Immature Gran % (Auto) 0.200 Neut % (Auto) 82.7 H Lymph % (Auto) 8.8 L [place] % (Auto) 4.5 Eos % (Auto) 3.0 Baso % (Auto) 0.8 Absolute Neuts (auto) 5.0 Absolute Lymphs (auto) 0.53 L Total Counted Not Reportable Differential Comment SCANNED Immature Plt Fraction Retic Count Immature Retic Fraction Retic Hgb Equivalent Sodium 137 Potassium 5.4 H Chloride 107 Carbon Dioxide 22.0 Anion Gap 8 BUN 57 H Creatinine 4.07 H Estim Creat Clear Calc 19.19 Est GFR (MDRD) Af Amer 15 L Est GFR (MDRD) Non-Af 12 L BUN/Creatinine Ratio 14.0 Glucose 246 H Hemoglobin A1c Calcium 8.5 Magnesium Iron TIBC Iron Saturation Ferritin Total Bilirubin AST ALT Alkaline Phosphatase Troponin I < 0.015 B-Natriuretic Peptide 162.5 H Total Protein Albumin Globulin Albumin/Globulin Ratio Triglycerides Cholesterol LDL Cholesterol VLDL Cholesterol HDL Cholesterol TSH Free T4 MRSA (PCR) 01/14/19 01/14/19 01/14/19 20:34 20:34 23:14 WBC RBC Hgb 7.4 L Hct 23.3 L MCV MCH MCHC RDW RDW Differential Plt Count MPV Immature Gran % (Auto) Neut % (Auto) Lymph % (Auto) [place] % (Auto) Eos % (Auto) Baso % (Auto) Absolute Neuts (auto) Absolute Lymphs (auto) Total Counted Differential Comment Immature Plt Fraction Retic Count Immature Retic Fraction Retic Hgb Equivalent Sodium Potassium Chloride Carbon Dioxide Anion Gap BUN Creatinine Estim Creat Clear Calc Est GFR (MDRD) Af Amer Est GFR (MDRD) Non-Af BUN/Creatinine Ratio Glucose Hemoglobin A1c Calcium Magnesium Iron TIBC Iron Saturation Ferritin Total Bilirubin AST ALT Alkaline Phosphatase Troponin I < 0.015 < 0.015 B-Natriuretic Peptide Total Protein Albumin Globulin Albumin/Globulin Ratio Triglycerides Cholesterol LDL Cholesterol VLDL Cholesterol HDL Cholesterol TSH Free T4 MRSA (PCR) 01/14/19 01/15/19 01/15/19 23:45 00:03 02:33 WBC RBC Hgb Hct MCV MCH MCHC RDW RDW Differential Plt Count MPV Immature Gran % (Auto) Neut % (Auto) Lymph % (Auto) [place] % (Auto) Eos % (Auto) Baso % (Auto) Absolute Neuts (auto) Absolute Lymphs (auto) Total Counted Differential Comment Immature Plt Fraction 5.5 Retic Count 1.61 H Immature Retic Fraction 9.30 Retic Hgb Equivalent 27.2 L Sodium Potassium Chloride Carbon Dioxide Anion Gap BUN Creatinine Estim Creat Clear Calc Est GFR (MDRD) Af Amer Est GFR (MDRD) Non-Af BUN/Creatinine Ratio Glucose 507 H* Hemoglobin A1c Calcium Magnesium Iron TIBC Iron Saturation Ferritin Total Bilirubin AST ALT Alkaline Phosphatase Troponin I B-Natriuretic Peptide Total Protein Albumin Globulin Albumin/Globulin Ratio Triglycerides Cholesterol LDL Cholesterol VLDL Cholesterol HDL Cholesterol TSH Free T4 MRSA (PCR) Negative 01/15/19 01/15/19 01/15/19 02:33 02:33 05:25 WBC RBC Hgb Hct MCV MCH MCHC RDW RDW Differential Plt Count MPV Immature Gran % (Auto) Neut % (Auto) Lymph % (Auto) [place] % (Auto) Eos % (Auto) Baso % (Auto) Absolute Neuts (auto) Absolute Lymphs (auto) Total Counted Differential Comment Immature Plt Fraction Retic Count Immature Retic Fraction Retic Hgb Equivalent Sodium 132 L Potassium 7.4 H* Chloride 103 Carbon Dioxide 19.0 L Anion Gap 10 BUN 70 H Creatinine 4.53 H Estim Creat Clear Calc 16.69 Est GFR (MDRD) Af Amer 13 L Est GFR (MDRD) Non-Af 11 L BUN/Creatinine Ratio 15.5 Glucose 570 H* Hemoglobin A1c 8.8 H Calcium 7.7 L Magnesium 2.2 Iron 29 L TIBC 185 L Iron Saturation 15.7 Ferritin 383 H Total Bilirubin 0.30 AST 10 L ALT 19 Alkaline Phosphatase 121 H Troponin I < 0.015 B-Natriuretic Peptide Total Protein 5.9 L Albumin 2.4 L Globulin 3.5 Albumin/Globulin Ratio 0.7 L Triglycerides 61 Cholesterol 140 LDL Cholesterol 71 VLDL Cholesterol 12 HDL Cholesterol 57 TSH 2.46 Free T4 0.91 MRSA (PCR) POC Glucose 01/15/19 01/14/19 06:58 23:40 POC Glucose > 500 H* 453 H* Clinical Impression(s) from Imaging Studies Chest X-Ray 01/14/19 15:12 IMPRESSION: Bilateral diffuse airspace disease. Follow-up is recommended. Electronically Signed: Todd Curry, at 15:38 EDT , Service support , Assessment/Plan Active and Suspected Problems (Last Updated 12/23/18 @ 09:50 by Karime Mcrae) Acute on chronic anemia (Acute) RECOMMENDATIONS: 1. Medical management of hyperkalemia. 2. Await nephrology consultation. 3. Continue empiric antibiotics, pending infectious workup. 4. Fluid removal with dialysis. 5. Wean supplemental oxygen to maintain saturations at or above 90%. IMPRESSIONS: 1. Acute hypoxemic respiratory insufficiency Clinical concern for underlying pulmonary infectious process versus decompensated heart failure. At the current time, a repeat echocardiogram is p ending. Recommend fluid removal with hemodialysis. Continue empiric antimicrobials, pending infectious workup. Wean supplemental oxygen to maintain saturations at or above 90%. If the patient does produce any sputum, please send for culture. 2. Normocytic anemia There are plans for the patient to receive 2 units of packed red blood cells. Recheck H&H posttransfusion. 3. Acute on chronic kidney disease/hyperkalemia/non-gap metabolic acidosis The patient has known CKD stage IV due to diabetic nephropathy and currently follows with Dr. Pineda. Nephrology consultation is pending. Tentative plans for hemodialysis today. 4. Hyperglycemia Continue insulin as ordered. 5. History of heart failure with preserved ejection fraction Repeat surface echocardiogram is currently pending. Anticipate volume removal with dialysis. 6. Anxiety/depression/hypothyroidism/hyperlipidemia/hypertension/diabetes mellitus Complicates care, management, recovery and prognosis. Okay to continue home medications from my perspective. This note was generated with [employer] dictation software. It may contain incorrect words, spelling, and punctuation that were not noted in checking the note before signing. Code Visit Inpatient E&M: 12706 Init Hosp L3
[2019-01-15 08:55] LABS: Bedside Glucose > 500 mg/dL (70-110)
--- NOTE | 2019-01-15 10:00 | CM.UR ---
Attempted to see this am. after rounds, however student was working on starting an IV and she was also getting hooked up to dialysis. Explained I'd come back later. Isidra Boston RN, CCM.
[2019-01-15 10:05] LABS: Bedside Glucose > 500 mg/dL (70-110)
--- NOTE | 2019-01-15 10:35 | PCM.PN.HOSP ---
Patient Problems: Active and Suspected Problems (Last Updated 12/23/18 @ 09:50 by Karime Mcrae) Acute on chronic anemia (Acute) Subjective: Patient seen and examined. She was admitted 1 day ago with a complaint of shortness of breath for the past 3-5 days prior to admission. She had noticed gradually worsening edema of her face, abdomen and lower extremities as well as chest heaviness. Chest x-ray done in the ED showed bilateral diffuse airspace disease suggestive of interstitial edema bilateral pneumonia. She had also admitted to low-grade fevers over the past 3 days prior to admission. She was admitted and be managed for anasarca likely due to AK I on CKD and was started on IV Lasix. Right upper quadrant ultrasound was also ordered to look for ascites and she was started on antibiotics for possible community-acquired pneumonia. She was also been diuresed for acute on chronic diastolic heart failure as BNP was 162. On review of this morning, patient's potassium had gone up to 7.4 from 5.4 on admission. Blood sugar was also 575. Patient stated that she had had DKA several times in the past. She still complained of feeling short of breath but denied any chest pain or palpitations, dizziness, or diarrhea. She did admit to some soft stools. Patient was immediately given IV calcium gluconate 1 g as well as IV insulin 10 units once for hype Kalemia. She was emergently transferred to the ICU and hospitalist spoke to manager labor delivery on phone the patient would need dialysis on account of severe hyperkalemia. Patient was also given a dose of 30 g of Kayexalate. Review of labs, sodium is 132 and bicarb is 19 with an anion gap of 10. Creatinine is gone up to 4.53 with baseline being around 2. Hemoglobin was 7.4 on admission. Vitals/I&O's: Vital Signs Temp Pulse Resp BP Pulse Ox 97.9 F 78 20 H 139/58 H 96 01/15/19 05:20 01/15/19 07:08 01/15/19 05:20 01/15/19 05:20 01/15/19 07:30 Oxygen Flow Rate (L/min) 2 Oxygen Delivery Method Nasal Cannula Weight: 173 lb 11.588 oz Body Mass Index (BMI) 34.7 Finger Stick Blood Glucose 341 Intake and Output for Last 24 Hours 0401/14/19 01/15/19 23:59 23:59 23:59 Intake Total 346 / 346 408 / 408 Output Total 300 / 300 0 / 0 Balance 46 / 46 408 / 408 General: Alert, Oriented x3, Cooperative HEENT: Atraumatic, PERRLA, EOMI, Normocephalic Oral: Dry Mucosa Neck: Supple, No JVD, Negative Carotid Bruits Lungs: Clear to auscultation, Normal air movement, No rhonchi, No wheeze, No rales Cardiovascular: Regular rate, Regular Rhythm, Normal S1, Normal S2, No murmurs Extremities: No clubbing, No cyanosis, No edema, Capillary Refill Less than 3 Seconds Skin: No rashes, No breakdown Musculoskeletal: No Tenderness to Palpation of Joints or Extremities, - - AV fistula in right upper forearm, with good thrill Lymphatic: No Cervical, Supraclavicular, or Inguinal Adenopathy Neurological: Cranial nerves II-XII grossly intact Psych/Mental Status: Normal Affect, Appropriate, Alert and oriented to time, place, person, mood and affect Laboratory Results 01/14/19 15:50: WBC 6.0, RBC 2.40 L, Hgb 7.4 L, Hct 23.7 L, MCV 98.8, MCH 30.8, MCHC 31.2 L, RDW 12.1, RDW Differential 43.4, Plt Count 226, MPV 11.1, Immature Gran % (Auto) 0.200, Neut % (Auto) 82.7 H, Lymph % (Auto) 8.8 L, [place] % (Auto) 4.5, Eos % (Auto) 3.0, Baso % (Auto) 0.8, Absolute Neuts (auto) 5.0, Absolute Lymphs (auto) 0.53 L, Total Counted Not Reportable, Differential Comment SCANNED 01/14/19 15:50: Sodium 137, Potassium 5.4 H, Chloride 107, Carbon Dioxide 22.0, Anion Gap 8, BUN 57 H, Creatinine 4.07 H, Estim Creat Clear Calc 19.19, Est GFR (MDRD) Af Amer 15 L, Est GFR (MDRD) Non-Af 12 L, BUN/Creatinine Ratio 14.0, Glucose 246 H, Calcium 8.5, Troponin I < 0.015 01/14/19 15:50: B-Natriuretic Peptide 162.5 H 01/14/19 20:34: Hgb 7.4 L, Hct 23.3 L 01/14/19 20:34: Troponin I < 0.015 01/14/19 23:14: Troponin I < 0.015 01/14/19 23:40: POC Glucose 453 H* 01/14/19 23:45: MRSA (PCR) Negative 01/15/19 00:03: Glucose 507 H* 01/15/19 02:33: Immature Plt Fraction 5.5, Retic Count 1.61 H, Immature Retic Fraction 9.30, Retic Hgb Equivalent 27.2 L 01/15/19 02:33: Troponin I < 0.015 01/15/19 02:33: Hemoglobin A1c 8.8 H 01/15/19 05:25: Sodium 132 L, Potassium 7.4 H*, Chloride 103, Carbon Dioxide 19.0 L, Anion Gap 10, BUN 70 H, Creatinine 4.53 H, Estim Creat Clear Calc 16.69, Est GFR (MDRD) Af Amer 13 L, Est GFR (MDRD) Non-Af 11 L, BUN/Creatinine Ratio 15.5, Glucose 570 H*, Calcium 7.7 L, Magnesium 2.2, Iron 29 L, TIBC 185 L, Iron Saturation 15.7, Ferritin 383 H, Total Bilirubin 0.30, AST 10 L, ALT 19, Alkaline Phosphatase 121 H, Total Protein 5.9 L, Albumin 2.4 L, Globulin 3.5, Albumin/Globulin Ratio 0.7 L, Triglycerides 61, Cholesterol 140, LDL Cholesterol 71, VLDL Cholesterol 12, HDL Cholesterol 57, TSH 2.46, Free T4 0.91 01/15/19 06:58: POC Glucose > 500 H* 01/15/19 08:50: POC Glucose > 500 H* 01/15/19 09:57: POC Glucose > 500 H* Diagnostic Data Chest X-Ray 01/14/19 15:12 IMPRESSION: Bilateral diffuse airspace disease. Follow-up is recommended. Electronically Signed: Todd Zapien, at 15:38 EDT , Service support , Current Medications Acetaminophen (Tylenol) 650 mg PO Q6H PRN PRN PRN Reason: Mild Pain (scale 0-3)/T>100.7 Albuterol Sulfate (Ventolin Aerosols) 2.5 mg INHALATION Q2H PRN PRN PRN Reason: SHORTNESS OF BREATH Aspirin (Ecotrin) 81 mg PO DAILY@0800 [facility] Last Admin: 01/15/19 09:11 Dose: Not Given Atorvastatin Calcium (Lipitor) 80 mg PO QHS [facility] Last Admin: 01/14/19 23:24 Dose: 80 mg Bisacodyl (Dulcolax) 10 mg RECTAL DAILY PRN PRN PRN Reason: Constipation Citalopram Hydrobromide (Celexa) 20 mg PO QHS [facility] Last Admin: 01/15/19 00:39 Dose: 20 mg Clonazepam (Klonopin) 0.5 mg PO Q8H PRN PRN PRN Reason: ANXIETY Dextrose (D50w Syringe) 0 gm IV X1 PRN; Protocol PRN Reason: Hypoglycemia Docusate Sodium (Colace) 200 mg PO BID PRN PRN PRN Reason: Constipation Gabapentin (Neurontin) 300 mg PO BID [facility] Last Admin: 01/14/19 23:24 Dose: 300 mg Glucagon () 1 mg IM .X1 PRN PRN Reason: Hypoglycemia Guaifenesin (Mucinex) 1,200 mg PO BID [facility] Last Admin: 01/14/19 23:24 Dose: 1,200 mg Heparin Sodium (Porcine) (Heparin Na) 5,000 unit SC Q12 [facility] Azithromycin 500 mg/ Dextrose 255 mls @ 250 mls/hr IV Q24H [facility] Stop: 01/16/19 21:02 Last Admin: 01/15/19 00:01 Dose: 250 mls/hr Ceftriaxone Sodium (Rocephin) 1 gm in 50 mls @ 100 mls/hr IV Q24H [facility] Last Admin: 01/14/19 23:14 Dose: 100 mls/hr Insulin Human Lispro 100 unit/ (Sodium Chloride) 100 mls @ 7.88 mls/hr IV .[id number] [facility]; Protocol Last Admin: 01/15/19 08:53 Dose: 7.88 mls/hr Calcium Gluconate 1 gm/ N/A 10 mls @ 200 mls/hr IV X1 [facility] Last Admin: 01/15/19 08:24 Dose: 200 mls/hr Levothyroxine Sodium (Synthroid) 137 mcg PO DAILY@0600 [facility] Last Admin: 01/15/19 05:42 Dose: 137 mcg Ondansetron HCl (Zofran) 4 mg IV Q8H PRN PRN PRN Reason: Nausea Oxycodone HCl (Oxyir) 5 mg PO Q4H PRN PRN PRN Reason: Moderate Pain (pain scale 4-5) Polyethylene Glycol (Miralax) 17 gm PO DAILY [facility] Sodium Chloride () 5 - 15 ml IV UD PRN PRN Reason: SALINE FLUSH Last Admin: 01/15/19 00:10 Dose: 10 ml Zolpidem Tartrate (Ambien (Generic)) 5 mg PO QHS PRN PRN PRN Reason: SLEEP Medical Necessity - Tobacco Use Smoking Status: Never smoker Tobacco Use: Non-smoker Assessment/Plan All Active Problems (Last Updated 12/23/18 @ 09:50 by Karime Mcrae) Acute on chronic anemia (Acute) History of non-ST elevation myocardial infarction (NSTEMI) (Acute) Hyperkalemia (Acute) Problem with dialysis access (Acute) DKA (diabetic ketoacidoses) (Resolved) NSTEMI (non-ST elevated myocardial infarction) (Resolved) Syncope (Resolved) 1. Anasarca due to JAYLIN on CKD still has generalised edema Cr is 4.53 today, from 4.07 on admission. Baseline is around 2. He is to be on temporary dialysis but this was stopped about a year ago. Nephrology consulted for urgent dialysis today. Patient is to have dialysis today. 2. Severe hyperkalemia due to JAYLIN on CKD Potassium is 7.4 today. Patient immediately given IV gluconate and IV insulin. Immediately transferred to ICU. EKG ordered. will give PO sodium kayexalate 30gram once. will need dialysis for severe hyperkalemia 3. HHS: blood sugar was >500. Anion gap is only 10, with bicarb of 19 will start insulin drip; check blood sugar q1hrly and check BMP q4hrly will not hydrate aggressively due to JAYLIN on CKD 4. Community acquired pneumonia: on IV ceftriaxone and azithromycin. urine for strep and legionella pending. Respiratory panel pending CXR showed possible interstial edema vrs bilateral infiltrates has no fever or leucocytosis will consider stopping antibiotics if rest of workup is negative 5. Acute on chronic anemia Hb on admission was 7.4 Baseline is around 9-10. No evidence of occult bleeding. Will check occult blood in stool. Had a colonoscopy in July 2018 but due to poor prep she was asked to repeat it in 2 weeks. No record that this was repeated. Transfuse 2 units of packed red blood cells and consult general surgery for colonoscopy as needed. Iron panel showed iron of 29 with iron saturation of 15.7 and elevated ferritin of 383 with low TIBC indicating an anemia of chronic disease picture. 6. Acute on chronic heart failure with preserved ejection fraction: BNP was only mildly elevated at 162. I think his shortness of breath is mainly due to worsening AK I on CKD and less likely heart failure. IV Lasix held per nephrology. 7. Type 2 diabetes mellitus: as under 2. levemir on hold for now. A1C was 8.8 8. Hypothyroidism: On Synthroid 9. Hyperlipidemia: on atorvastatin 10. Hypertension: On losartan 11. Depression: On citalopram DVT prophylaxis: Heparin CODE STATUS: Full code Code Visit Inpatient E&M: 60159 [facility] Hosp L3
--- NOTE | 2019-01-15 10:40 | PN_ITS ---
Patient Problems: Active and Suspected Problems (Last Updated 12/23/18 @ 09:50 by Karime Mcrae) Acute on chronic anemia (Acute) Subjective: Patient seen and examined. She was admitted 1 day ago with a complaint of shortness of breath for the past 3-5 days prior to admission. She had noticed gradually worsening edema of her face, abdomen and lower extremities as well as chest heaviness. Chest x-ray done in the ED showed bilateral diffuse airspace disease suggestive of interstitial edema bilateral pneumonia. She had also adm itted to low-grade fevers over the past 3 days prior to admission. She was admitted and be managed for anasarca likely due to AK I on CKD and was started on IV Lasix. Right upper quadrant ultrasound was also ordered to look for ascites and she was started on antibiotics for possible community-acquired pneumonia. She was also been diuresed for acute on chronic diastolic heart failure as BNP was 162. On review of this morning, patient's potassium had gone up to 7.4 from 5.4 on admission. Blood sugar was also 575. Patient stated that she had had DKA several times in the past. She still complained of feeling short of breath but denied any chest pain or palpitations, dizziness, or diarrhea. She did admit to some soft stools. Patient was immediately given IV calcium gluconate 1 g as well as IV insulin 10 units once for hype Kalemia. She was emergently transferred to the ICU and hospitalist spoke to senior scheduler on phone the patient would need dialysis on account of severe hyperkalemia. Patient was also given a dose of 30 g of Kayexalate. Review of labs, sodium is 132 and bicarb is 19 with an anion gap of 10. Creatinine is gone up to 4.53 with baseline being around 2. Hemoglobin was 7.4 on admission. Vitals/I&O's: Vital Signs Temp Pulse Resp BP Pulse Ox 97.9 F 78 20 H 139/58 H 96 01/15/19 05:20 01/15/19 07:08 01/15/19 05:20 01/15/19 05:20 01/15/19 07:30 Oxygen Flow Rate (L/min) 2 Oxygen Delivery Method Nasal Cannula Weight: 173 lb 11.588 oz Body Mass Index (BMI) 34.7 Finger Stick Blood Glucose 341 Intake and Output for Last 24 Hours 01/13/19 01/14/19 01/15/19 23:59 23:59 23:59 Intake Total 346 / 346 408 / 408 Output Total 300 / 300 0 / 0 Balance 46 / 46 408 / 408 General: Alert, Oriented x3, Cooperative HEENT: Atraumatic, PERRLA, EOMI, Normocephalic Oral: Dry Mucosa Neck: Supple, No JVD, Negative Carotid Bruits Lungs: Clear to auscultation, Normal air movement, No rhonchi, No wheeze, No rales Cardiovascular: Regular rate, Regular Rhythm, Normal S1, Normal S2, No murmurs Extremities: No clubbing, No cyanosis, No edema, Capillary Refill Less than 3 Seconds Skin: No rashes, No breakdown Musculoskeletal: No Tenderness to Palpation of Joints or Extremities, - - AV fistula in right upper forearm, with good thrill Lymphatic: No Cervical, Supraclavicular, or Inguinal Adenopathy Neurological: Cranial nerves II-XII grossly intact Psych/Mental Status: Normal Affect, Appropriate, Alert and oriented to time, place, person, mood and affect Laboratory Results 01/14/19 15:50: WBC 6.0, RBC 2.40 L, Hgb 7.4 L, Hct 23.7 L, MCV 98.8, MCH 30.8, MCHC 31.2 L, RDW 12.1, RDW Differential 43.4, Plt Count 226, MPV 11.1, Immature Gran % (Auto) 0.200, Neut % (Auto) 82.7 H, Lymph % (Auto) 8.8 L, [place] % (Auto) 4.5, Eos % (Auto) 3.0, Baso % (Auto) 0.8, Absolute Neuts (auto) 5.0, Absolute Lymphs (auto) 0.53 L, Total Counted Not Reportable, Differential Comment SCANNED 01/14/19 15:50: Sodium 137, Potassium 5.4 H, Chloride 107, Carbon Dioxide 22.0, Anion Gap 8, BUN 57 H, Creatinine 4.07 H, Estim Creat Clear Calc 19.19, Est GFR (MDRD) Af Amer 15 L, Est GFR (MDRD) Non-Af 12 L, BUN/Creatinine Ratio 14.0, Glucose 246 H, Calcium 8.5, Troponin I < 0.015 01/14/19 15:50: B-Natriuretic Peptide 162.5 H 01/14/19 20:34: Hgb 7.4 L, Hct 23.3 L 01/14/19 20:34: Troponin I < 0.015 01/14/19 23:14: Troponin I < 0.015 01/14/19 23:40: POC Glucose 453 H* 01/14/19 23:45: MRSA (PCR) Negative 01/15/19 00:03: Glucose 507 H* 01/15/19 02:33: Immature Plt Fraction 5.5, Retic Count 1.61 H, Immature Retic Fraction 9.30, Retic Hgb Equivalent 27.2 L 01/15/19 02:33: Troponin I < 0.015 01/15/19 02:33: Hemoglobin A1c 8.8 H 01/15/19 05:25: Sodium 132 L, Potassium 7.4 H*, Chloride 103, Carbon Dioxide 19.0 L, Anion Gap 10, BUN 70 H, Creatinine 4.53 H, Estim Creat Clear Calc 16.69, Est GFR (MDRD) Af Amer 13 L, Est GFR (MDRD) Non-Af 11 L, BUN/Creatinine Ratio 15.5, Glucose 570 H*, Calcium 7.7 L, Magnesium 2.2, Iron 29 L, TIBC 185 L, Iron Saturation 15.7, Ferritin 383 H, Total Bilirubin 0.30, AST 10 L, ALT 19, Alkaline Phosphatase 121 H, Total Protein 5.9 L, Albumin 2.4 L, Globulin 3.5, Albumin/Globulin Ratio 0.7 L, Triglycerides 61, Cholesterol 140, LDL Cholesterol 71, VLDL Cholesterol 12, HDL Cholesterol 57, TSH 2.46, Free T4 0.91 01/15/19 06:58: POC Glucose > 500 H* 01/15/19 08:50: POC Glucose > 500 H* 01/15/19 09:57: POC Glucose > 500 H* Diagnostic Data Chest X-Ray 01/14/19 15:12 IMPRESSION: Bilateral diffuse airspace disease. Follow-up is recommended. Electronically Signed: Todd Zapien, at 15:38 EDT , Service support , Current Medications Acetaminophen (Tylenol) 650 mg PO Q6H PRN PRN PRN Reason: Mild Pain (scale 0-3)/T>100.7 Albuterol Sulfate (Ventolin Aerosols) 2.5 mg INHALATION Q2H PRN PRN PRN Reason: SHORTNESS OF BREATH Aspirin (Ecotrin) 81 mg PO DAILY@0800 [facility] Last Admin: 01/15/19 09:11 Dose: Not Given Atorvastatin Calcium (Lipitor) 80 mg PO QHS [facility] Last Admin: 01/14/19 23:24 Dose: 80 mg Bisacodyl (Dulcolax) 10 mg RECTAL DAILY PRN PRN PRN Reason: Constipation Citalopram Hydrobromide (Celexa) 20 mg PO QHS [facility] Last Admin: 01/15/19 00:39 Dose: 20 mg Clonazepam (Klonopin) 0.5 mg PO Q8H PRN PRN PRN Reason: ANXIETY Dextrose (D50w Syringe) 0 gm IV X1 PRN; Protocol PRN Reason: Hypoglycemia Docusate Sodium (Colace) 200 mg PO BID PRN PRN PRN Reason: Constipation Gabapentin (Neurontin) 300 mg PO BID [facility] Last Admin: 01/14/19 23:24 Dose: 300 mg Glucagon () 1 mg IM .X1 PRN PRN Reason: Hypoglycemia Guaifenesin (Mucinex) 1,200 mg PO BID [facility] Last Admin: 01/14/19 23:24 Dose: 1,200 mg Heparin Sodium (Porcine) (Heparin Na) 5,000 unit SC Q12 [facility] Azithromycin 500 mg/ Dextrose 255 mls @ 250 mls/hr IV Q24H [facility] Stop: 01/16/19 21:02 Last Admin: 01/15/19 00:01 Dose: 250 mls/hr Ceftriaxone Sodium (Rocephin) 1 gm in 50 mls @ 100 mls/hr IV Q24H [facility] Last Admin: 01/14/19 23:14 Dose: 100 mls/hr Insulin Human Lispro 100 unit/ (Sodium Chloride) 100 mls @ 7.88 mls/hr IV .[id number] [facility]; Protocol Last Admin: 01/15/19 08:53 Dose: 7.88 mls/hr Calcium Gluconate 1 gm/ N/A 10 mls @ 200 mls/hr IV X1 [facility] Last Admin: 01/15/19 08:24 Dose: 200 mls/hr Levothyroxine Sodium (Synthroid) 137 mcg PO DAILY@0600 [facility] Last Admin: 01/15/19 05:42 Dose: 137 mcg Ondansetron HCl (Zofran) 4 mg IV Q8H PRN PRN PRN Reason: Nausea Oxycodone HCl (Oxyir) 5 mg PO Q4H PRN PRN PRN Reason: Moderate Pain (pain scale 4-5) Polyethylene Glycol (Miralax) 17 gm PO DAILY [facility] Sodium Chloride () 5 - 15 ml IV UD PRN PRN Reason: SALINE FLUSH Last Admin: 01/15/19 00:10 Dose: 10 ml Zolpidem Tartrate (Ambien (Generic)) 5 mg PO QHS PRN PRN PRN Reason: SLEEP Medical Necessity - Tobacco Use Smoking Status: Never smoker Tobacco Use: Non-smoker Assessment/Plan All Active Problems (Last Updated 12/23/18 @ 09:50 by Karime Mcrae) Acute on chronic anemia (Acute) History of non-ST elevation myocardial infarction (NSTEMI) (Acute) Hyperkalemia (Acute) Problem with dialysis access (Acute) DKA (diabetic ketoacidoses) (Resolved) NSTEMI (non-ST elevated myocardial infarction) (Resolved) Syncope (Resolved) 1. Anasarca due to JAYLIN on CKD * still has generalised edema * Cr is 4.53 today, from 4.07 on admission. Baseline is around 2. * He is to be on temporary dialysis but this was stopped about a year ago. * Nephrology consulted for urgent dialysis today. Patient is to have dialysis today. * 2. Severe hyperkalemia due to JAYLIN on CKD * Potassium is 7.4 today. Patient immediately given IV gluconate and IV insulin. * Immediately transferred to ICU. EKG ordered. * will give PO sodium kayexalate 30gram once. * will need dialysis for severe hyperkalemia * 3. HHS: * blood sugar was >500. * Anion gap is only 10, with bicarb of 19 * will start insulin drip; check blood sugar q1hrly and check BMP q4hrly * will not hydrate aggressively due to JAYLIN on CKD * 4. Community acquired pneumonia: * on IV ceftriaxone and azithromycin. * urine for strep and legionella pending. Respiratory panel pending * CXR showed possible interstial edema vrs bilateral infiltrates * has no fever or leucocytosis * will consider stopping antibiotics if rest of workup is negative * 5. Acute on chronic anemia * Hb on admission was 7.4 * Baseline is around 9-10. No evidence of occult bleeding. * Will check occult blood in stool. * Had a colonoscopy in July 2018 but due to poor prep she was asked to repeat it in 2 weeks. No record that this was repeated. * Transfuse 2 units of packed red blood cells and consult general surgery for colonoscopy as needed. * Iron panel showed iron of 29 with iron saturation of 15.7 and elevated ferritin of 383 with low TIBC indicating an anemia of chronic disease picture. * 6. Acute on chronic heart failure with preserved ejection fraction: * BNP was only mildly elevated at 162. * I think his shortness of breath is mainly due to worsening AK I on CKD and less likely heart failure. * IV Lasix held per nephrology. * 7. Type 2 diabetes mellitus: as under 2. levemir on hold for now. A1C was 8.8 8. Hypothyroidism: On Synthroid 9. Hyperlipidemia: on atorvastatin 10. Hypertension: On losartan 11. Depression: On citalopram DVT prophylaxis: Heparin CODE STATUS: Full code Code Visit Inpatient E&M: 25886 Subs Hosp L3
[2019-01-15 10:51] LABS: Bedside Glucose 484 mg/dL (70-110)
[2019-01-15 11:51] LABS: Bedside Glucose 345 mg/dL (70-110)
[2019-01-15 13:25] LABS: Bedside Glucose 179 mg/dL (70-110)
--- NOTE | 2019-01-15 13:30 | NURSING ---
Blood transfused per nurse licensed practical
--- NOTE | 2019-01-15 14:08 | NURSING ---
GIVEN PER DIALYSIS NURSE
[2019-01-15] MEDS: Gabapentin 300 MG Capsule PO ×2 (15:10→22:21)
[2019-01-15] MEDS: guaiFENesin 1,200 MG Tablet 1200 MG PO ×2 (15:10→22:22)
--- NOTE | 2019-01-15 17:19 | CM.UR ---
RN CM Assessment Met face to face with patient for initial transition planning/care coordination assessment. Introduced myself and my role. Verb understanding and agreement for assessment. She has a lot of complaints. States she needs a lot of things. Puts a lot of responsibility on her 22 yo daughter. They are in collections for a lot of things. States she needs financial help. needs to get back on SRS. States could use more care at home. Presentation: Increased sob, orthopnea PCP: None Specialists: linda Van, Psychiatrist--[facility] in [place], [place] Dr. Pineda for nephrology/dialysis. Preferred Pharmacy: [email or web address] Insurance: [employer] Prescription Benefit: Yes LNOK: stephany (daughter) Home: 2 story. Daughter and finance live with her. Essentially they have 2nd story and she lives on first. ADLs: Able to do personal care. Daughter does the cooking, finances. DME: nebulizer, shower chair, FWW, SNF/HHC: been in [facility] before and has had [facility] too. Passport/waiver stationary engineer supervisor: Didn't get anything currently. Daughter did get a SUPERVISOR [employer] job so that she could get paid to take care of her mom but they had to pay for the SUPERVISOR [employer] OFFICIALS --so they were paying >$300/month so they had to stop. Advance Directives: has both. Daughter Stephany is her DPOA. DC PLAN: TBD. If needs dialysis --previously seen at [facility] [place]. Isidra Boston RN, [facility]
[2019-01-15] MEDS: clonazePAM 0.5 MG Tablet PO (17:31)
[2019-01-15 17:50] LABS: Bedside Glucose 198 mg/dL (70-110)
--- NOTE | 2019-01-15 18:48 | PCM.CONS.R ---
Consultation - Renal 01/15/19 PCP/ Referring MD: Requesting physician: Haroon Smith Primary care physician: No Primary Care Phys Reason for Consultation:: hyperkalemia, acute on CKD stage 4 - History of Present Illness History of Present Illness: The patient is a 58 year old F with CKD Stage 4 due to DM type 1, hypertension, on hemodialysis with recovery back in April 2018 had stable renal function with creatinine in mid 2's admitted with hyperkalemia k 7.4, creatinine 4.53. She was urgently dialyzed this morning. She had fistulogram on 12/16 for poor access flow, left arm swelling. Nurses had difficulty with access cannulation, using 16g and 17g needle. She complained of mucousy stools without hematochezia, melena. Hgb low at 7.4g. Sugars elevated in the 500's with metabolic acidosis. She complained of shortness of breath with cough. She had a fever at home. She did not have leukocytosis on admission. CXR with infiltrates. She is breathing better after 3L fluid removed. She recently changed insurance and needed a new pcp. She denies noncompliance with her medications. - Allergies Allergies: Allergies prednisone Allergy (Unknown, Verified 12/23/18 09:48) Unknown prochlorperazine edisylate [From Compazine] Adverse Reaction (Verified 12/23/18 09:48) Other i wig out prochlorperazine maleate [From Compazine] Adverse Reaction (Verified 12/23/18 09:48) Other - Current Medications Current Medications: Current Medications Acetaminophen (Tylenol) 650 mg PO Q6H PRN PRN PRN Reason: Mild Pain (scale 0-3)/T>100.7 Albuterol Sulfate (Ventolin Aerosols) 2.5 mg INHALATION Q2H PRN PRN PRN Reason: SHORTNESS OF BREATH Aspirin (Ecotrin) 81 mg PO DAILY@0800 [facility] Last Admin: 01/15/19 09:11 Dose: Not Given Atorvastatin Calcium (Lipitor) 80 mg PO QHS [facility] Last Admin: 01/14/19 23:24 Dose: 80 mg Bisacodyl (Dulcolax) 10 mg RECTAL DAILY PRN PRN PRN Reason: Constipation Citalopram Hydrobromide (Celexa) 20 mg PO QHS [facility] Last Admin: 01/15/19 00:39 Dose: 20 mg Clonazepam (Klonopin) 0.5 mg PO Q8H PRN PRN PRN Reason: ANXIETY Last Admin: 01/15/19 17:31 Dose: 0.5 mg Dextrose (D50w Syringe) 0 gm IV X1 PRN; Protocol PRN Reason: Hypoglycemia Docusate Sodium (Colace) 200 mg PO BID PRN PRN PRN Reason: Constipation Gabapentin (Neurontin) 300 mg PO BID [facility] Last Admin: 01/15/19 15:10 Dose: 300 mg Glucagon () 1 mg IM .X1 PRN PRN Reason: Hypoglycemia Guaifenesin (Mucinex) 1,200 mg PO BID [facility] Last Admin: 01/15/19 15:10 Dose: 1,200 mg Heparin Sodium (Porcine) (Heparin Na) 5,000 unit SC Q12 [facility] Last Admin: 01/15/19 15:10 Dose: Not Given Azithromycin 500 mg/ Dextrose 255 mls @ 250 mls/hr IV Q24H [facility] Stop: 01/16/19 21:02 Last Admin: 01/15/19 00:01 Dose: 250 mls/hr Ceftriaxone Sodium (Rocephin) 1 gm in 50 mls @ 100 mls/hr IV Q24H [facility] Last Admin: 01/14/19 23:14 Dose: 100 mls/hr Insulin Glargine (Lantus (Bkc)) 10 units SC BID [facility] Last Admin: 01/15/19 13:57 Dose: 10 u Iron Sucrose (Venofer) 100 mg IV .DIALYSIS [facility] Last Admin: 01/15/19 13:56 Dose: 100 mg Levothyroxine Sodium (Synthroid) 137 mcg PO DAILY@0600 [facility] Last Admin: 01/15/19 05:42 Dose: 137 mcg Ondansetron HCl (Zofran) 4 mg IV Q8H PRN PRN PRN Reason: Nausea Oxycodone HCl (Oxyir) 5 mg PO Q4H PRN PRN PRN Reason: Moderate Pain (pain scale 4-5) Polyethylene Glycol (Miralax) 17 gm PO DAILY [facility] Last Admin: 01/15/19 14:27 Dose: Not Given Sodium Chloride () 5 - 15 ml IV UD PRN PRN Reason: SALINE FLUSH Last Admin: 01/15/19 00:10 Dose: 10 ml Zolpidem Tartrate (Ambien (Generic)) 5 mg PO QHS PRN PRN PRN Reason: SLEEP - Past Medical History Past Medical History (Chronic Problems): Chronic Problems (Last Updated 12/23/18 @ 09:50 by Karime Mcrae) Ascites (Chronic) Nonrheumatic mitral valve regurgitation (Chronic) Atherosclerotic heart disease of [place] coronary artery without angina pectoris (Chronic) Chronic kidney disease, stage 4, severely decreased GFR (Chronic) under care of nephrology. CHF (congestive heart failure) (Chronic) Diabetes type I (Chronic) Dx : age 4 Last exacerbation : DKA : 2015 Hypoglycemic episode : 2016 ER visit : 2016 No data for review. Patient is ask to bring data to office for download. Discussed checking BG before meals and 2 hours post meal. Discussed carb counting meals and we reviewed how to carb count and also reading labels. We reviewd how to determine I/c ratios. Reviewed possibly using insulin pump in future. Is on arb. On statin. . Chronic kidney disease, stage 4, severely decreased GFR (Chronic) HTN (hypertension) (Chronic) Hyperlipidemia (Chronic) Under care of cardiology. Will need to update labs. Hypothyroidism (Chronic) Thyroid replacement d/cd although not sure why. Will need to check labs and determine why this is. Patient unable to answer. Diabetic polyneuropathy (Chronic) Asthma (Chronic) Charcot's joint of right foot (Chronic) - Past Surgical History Surgical History: dilatation and curettage, - - Tubal Ligation 1985; Right knee Tib fx with hardware ;LUE Fistula with fistulogram - Social History Smoking Status: Never smoker - Family History Maternal Family History: Family History (Last Reviewed 12/23/18 @ 09:49 by Karime Mcrae) Mother Arthritis Cancer Hormone deficiency Thyroid disorder Osteoporosis Skin cancer Father Arthritis Diabetes Heart disease Hypertension High cholesterol CVA (cerebral vascular accident) History Items: Cancer - lung, melanoma Paternal Family History: Family History (Last Reviewed 12/23/18 @ 09:49 by Karime Mcrae) Mother Arthritis Cancer Hormone deficiency Thyroid disorder Osteoporosis Skin cancer Father Arthritis Diabetes Heart disease Hypertension High cholesterol CVA (cerebral vascular accident) History Items: Diabetes Review of Systems Constitutional: Reports: Fever, Weakness, Fatigue. Denies: Anorexia, Chills Eyes: Denies: Vision Change HEENT: Denies: Head Aches Cardiovascular: Reports: Edema. Denies: Chest Pain Gastrointestinal: Reports: - - bloated. Denies: Abdominal Pain, Hematemesis, Hematochezia, Nausea, Melena, Vomiting Genitourinary: Reports: - - decreased urine output. Denies: Dysuria Musculoskeletal: Reports: Arm Pain - arm swelling, - - DJD Neurological: Reports: Balance problems - chronic from DJD. Denies: Tremor, Seizures Psychiatric: Reports: Anxiety, Depression Hematologic/ Lymphatic: Reports: Anemia Patient Problems: Active and Suspected Problems (Last Updated 12/23/18 @ 09:50 by Karime Mcrae) Acute on chronic anemia (Acute) - Physical Exam General: Alert, Oriented x3, Cooperative, No apparent distress HEENT: PERRLA, EOMI Oral: Dry Mucosa Neck: Supple Lungs: Rales - right base Cardiovascular: Regular rate, Murmur Abdomen: Bowel Sounds Present, Soft, Non Tender, Non-Distended, Obese Extremities: Edema - mild LUE edema, - - AVF poor thrill and bruit Skin: No rashes Musculoskeletal: No Muscle Wasting, Arthritic Changes, - - DJD, difficulty with ambulation, debilitated Neurological: Cranial nerves II-XII grossly intact Psych/Mental Status: Normal Affect, Appropriate, Alert and oriented to time, place, person, mood and affect Vital Signs Temp Pulse Resp BP Pulse Ox 97.7 F L 77 15 145/70 H 97 01/15/19 14:51 01/15/19 18:00 01/15/19 18:00 01/15/19 18:00 01/15/19 18:00 Oxygen Flow Rate (L/min) 2 Oxygen Delivery Method Nasal Cannula Weight: 78.8 kg Body Mass Index (BMI) 34.7 Finger Stick Blood Glucose 179 Intake and Output for Last 24 Hours 01/13/19 01/14/19 01/15/19 23:59 23:59 23:59 Intake Total 346 / 346 1680 / 1680 Output Total 300 / 300 3000 / 3000 Balance 46 / 46 -1320 / -1320 Microbiology Past 72 Hours 01/14/19 22:40 Respiratory Panel (PCR) - Final Mucosa - Nasopharyngeal Laboratory Tests Past 24 Hrs 01/14/19 01/14/19 01/14/19 20:34 20:34 23:14 Hgb 7.4 L Hct 23.3 L Immature Plt Fraction Retic Count Immature Retic Fraction Retic Hgb Equivalent Sodium Potassium Chloride Carbon Dioxide Anion Gap BUN Creatinine Estim Creat Clear Calc Est GFR (MDRD) Af Amer Est GFR (MDRD) Non-Af BUN/Creatinine Ratio Glucose Hemoglobin A1c Calcium Magnesium Iron TIBC Iron Saturation Ferritin Total Bilirubin AST ALT Alkaline Phosphatase Troponin I < 0.015 < 0.015 Total Protein Albumin Globulin Albumin/Globulin Ratio Triglycerides Cholesterol LDL Cholesterol VLDL Cholesterol HDL Cholesterol TSH Free T4 Hep Bs Antigen Hep B Core Total Ab Hepatitis Be Antibody MRSA (PCR) Blood Type Antibody Screen Crossmatch 01/14/19 01/15/19 01/15/19 23:45 00:03 02:33 Hgb Hct Immature Plt Fraction 5.5 Retic Count 1.61 H Immature Retic Fraction 9.30 Retic Hgb Equivalent 27.2 L Sodium Potassium Chloride Carbon Dioxide Anion Gap BUN Creatinine Estim Creat Clear Calc Est GFR (MDRD) Af Amer Est GFR (MDRD) Non-Af BUN/Creatinine Ratio Glucose 507 H* Hemoglobin A1c Calcium Magnesium Iron TIBC Iron Saturation Ferritin Total Bilirubin AST ALT Alkaline Phosphatase Troponin I Total Protein Albumin Globulin Albumin/Globulin Ratio Triglycerides Cholesterol LDL Cholesterol VLDL Cholesterol HDL Cholesterol TSH Free T4 Hep Bs Antigen Hep B Core Total Ab Hepatitis Be Antibody MRSA (PCR) Negative Blood Type Antibody Screen Crossmatch 01/15/19 01/15/19 01/15/19 02:33 02:33 05:25 Hgb Hct Immature Plt Fraction Retic Count Immature Retic Fraction Retic Hgb Equivalent Sodium 132 L Potassium 7.4 H* Chloride 103 Carbon Dioxide 19.0 L Anion Gap 10 BUN 70 H Creatinine 4.53 H Estim Creat Clear Calc 16.69 Est GFR (MDRD) Af Amer 13 L Est GFR (MDRD) Non-Af 11 L BUN/Creatinine Ratio 15.5 Glucose 570 H* Hemoglobin A1c 8.8 H Calcium 7.7 L Magnesium 2.2 Iron 29 L TIBC 185 L Iron Saturation 15.7 Ferritin 383 H Total Bilirubin 0.30 AST 10 L ALT 19 Alkaline Phosphatase 121 H Troponin I < 0.015 Total Protein 5.9 L Albumin 2.4 L Globulin 3.5 Albumin/Globulin Ratio 0.7 L Triglycerides 61 Cholesterol 140 LDL Cholesterol 71 VLDL Cholesterol 12 HDL Cholesterol 57 TSH 2.46 Free T4 0.91 Hep Bs Antigen Hep B Core Total Ab Hepatitis Be Antibody MRSA (PCR) Blood Type Antibody Screen Crossmatch 01/15/19 01/15/19 Hep Bs Antigen Pending Hep B Core Total Ab Pending Hepatitis Be Antibody Pending MRSA (PCR) Blood Type A POSITIVE Antibody Screen NEGATIVE Crossmatch See Detail POC Glucose 01/15/19 01/15/19 01/15/19 17:44 13:16 11:46 POC Glucose 198 H 179 H 345 H 01/15/19 01/15/19 01/15/19 10:44 09:57 08:50 POC Glucose 484 H* > 500 H* > 500 H* 01/15/19 01/14/19 06:58 23:40 POC Glucose > 500 H* 453 H* Clinical Impression(s) from Imaging Studies Chest X-Ray 01/14/19 15:12 IMPRESSION: Bilateral diffuse airspace disease. Follow-up is recommended. Electronically Signed: Todd Curry, at 15:38 EDT , Service support , Assessment/Plan All Active Problems (Last Updated 12/23/18 @ 09:50 by Karime Mcrae) Acute on chronic anemia (Acute) History of non-ST elevation myocardial infarction (NSTEMI) (Acute) Hyperkalemia (Acute) Problem with dialysis access (Acute) DKA (diabetic ketoacidoses) (Resolved) NSTEMI (non-ST elevated myocardial infarction) (Resolved) Syncope (Resolved) 1. Acute on CKD stage 4 with underlying diabetic nephropathy. Baseline creatinine mid 2's now 4.5 with oliguria, fluid overload. Dialysis today. May need to resume chronic dialysis. Pt recovered renal fxn back in April 2018, not requiring dialysis until now. 2. Malfunction AVF s/p fistulogram with angioplasty, poor bruit and thrill. May need consult with Dr. Wagner for re-evaluation. Difficulty cannulating today on dialysis. 3. Acute hyperkalemia requiring urgent dialysis 4. Acute anemia s/p 2u prbc on dialysis. Iron deficiency anemia start iv iron on dialysis. Check stool for occult blood 5. Hypoxemia with SOB, acute CHF. improved with dialysis, 3L fluid removed. 6. HTN stable 7. CAP on antibx 8. DM type 1 with hyperglycemia, metabolic acidosis
--- NOTE | 2019-01-15 18:56 | CON.PCM_ITS ---
Consultation - Renal 01/15/19 PCP/ Referring MD: Requesting physician: Haroon Smith Primary care physician: No Primary Care Phys Reason for Consultation:: hyperkalemia, acute on CKD stage 4 - History of Present Illness History of Present Illness: The patient is a 58 year old F with CKD Stage 4 due to DM type 1, hypertension, on hemodialysis with recovery back in April 2018 had stable renal function with creatinine in mid 2's admitted with hyperkalemia k 7.4, creatinine 4.53. She was urgently dialyzed this morning. She had fistulogram on 12/16 for poor access flow, left arm swelling. Nurses had difficulty with access cannulation, using 16g and 17g needle. She complained of mucousy stools without hematochezia, melena. Hgb low at 7.4g. Sugars elevated in the 500's with metabolic acidosis. She complained of shortness of breath with cough. She had a fever at home. She did not have leukocytosis on admission. CXR with infiltrates. She is breathing better after 3L fluid removed. She recently changed insurance and needed a new pcp. She denies noncompliance with her medications. - Allergies Allergies: Allergies prednisone Allergy (Unknown, Verified 12/23/18 09:48) Unknown prochlorperazine edisylate [From Compazine] Adverse Reaction (Verified 12/23/18 09:48) Other i wig out prochlorperazine maleate [From Compazine] Adverse Reaction (Verified 12/23/18 09:48) Other - Current Medications Current Medications: Current Medications Acetaminophen (Tylenol) 650 mg PO Q6H PRN PRN PRN Reason: Mild Pain (scale 0-3)/T>100.7 Albuterol Sulfate (Ventolin Aerosols) 2.5 mg INHALATION Q2H PRN PRN PRN Reason: SHORTNESS OF BREATH Aspirin (Ecotrin) 81 mg PO DAILY@0800 [facility] Last Admin: 01/15/19 09:11 Dose: Not Given Atorvastatin Calcium (Lipitor) 80 mg PO QHS [facility] Last Admin: 01/14/19 23:24 Dose: 80 mg Bisacodyl (Dulcolax) 10 mg RECTAL DAILY PRN PRN PRN Reason: Constipation Citalopram Hydrobromide (Celexa) 20 mg PO QHS [facility] Last Admin: 01/15/19 00:39 Dose: 20 mg Clonazepam (Klonopin) 0.5 mg PO Q8H PRN PRN PRN Reason: ANXIETY Last Admin: 01/15/19 17:31 Dose: 0.5 mg Dextrose (D50w Syringe) 0 gm IV X1 PRN; Protocol PRN Reason: Hypoglycemia Docusate Sodium (Colace) 200 mg PO BID PRN PRN PRN Reason: Constipation Gabapentin (Neurontin) 300 mg PO BID [facility] Last Admin: 01/15/19 15:10 Dose: 300 mg Glucagon () 1 mg IM .X1 PRN PRN Reason: Hypoglycemia Guaifenesin (Mucinex) 1,200 mg PO BID [facility] Last Admin: 01/15/19 15:10 Dose: 1,200 mg Heparin Sodium (Porcine) (Heparin Na) 5,000 unit SC Q12 [facility] Last Admin: 01/15/19 15:10 Dose: Not Given Azithromycin 500 mg/ Dextrose 255 mls @ 250 mls/hr IV Q24H [facility] Stop: 01/16/19 21:02 Last Admin: 01/15/19 00:01 Dose: 250 mls/hr Ceftriaxone Sodium (Rocephin) 1 gm in 50 mls @ 100 mls/hr IV Q24H [facility] Last Admin: 01/14/19 23:14 Dose: 100 mls/hr Insulin Glargine (Lantus (Bkc)) 10 units SC BID [facility] Last Admin: 01/15/19 13:57 Dose: 10 u Iron Sucrose (Venofer) 100 mg IV .DIALYSIS [facility] Last Admin: 01/15/19 13:56 Dose: 100 mg Levothyroxine Sodium (Synthroid) 137 mcg PO DAILY@0600 [facility] Last Admin: 01/15/19 05:42 Dose: 137 mcg Ondansetron HCl (Zofran) 4 mg IV Q8H PRN PRN PRN Reason: Nausea Oxycodone HCl (Oxyir) 5 mg PO Q4H PRN PRN PRN Reason: Moderate Pain (pain scale 4-5) Polyethylene Glycol (Miralax) 17 gm PO DAILY [facility] Last Admin: 01/15/19 14:27 Dose: Not Given Sodium Chloride () 5 - 15 ml IV UD PRN PRN Reason: SALINE FLUSH Last Admin: 01/15/19 00:10 Dose: 10 ml Zolpidem Tartrate (Ambien (Generic)) 5 mg PO QHS PRN PRN PRN Reason: SLEEP - Past Medical History Past Medical History (Chronic Problems): Chronic Problems (Last Updated 12/23/18 @ 09:50 by Karime Mcrae) Ascites (Chronic) Nonrheumatic mitral valve regurgitation (Chronic) Atherosclerotic heart disease of [place] coronary artery without angina pectoris (Chronic) Chronic kidney disease, stage 4, severely decreased GFR (Chronic) under care of nephrology. CHF (congestive heart failure) (Chronic) Diabetes type I (Chronic) Dx : age 4 Last exacerbation : DKA : 2015 Hypoglycemic episode : 2016 ER visit : 2016 No data for review. Patient is ask to bring data to office for download. Discussed checking BG before meals and 2 hours post meal. Discussed carb counting meals and we reviewed how to carb count and also reading labels. We reviewd how to determine I/c ratios. Reviewed possibly using insulin pump in future. Is on arb. On statin. . Chronic kidney disease, stage 4, severely decreased GFR (Chronic) HTN (hypertension) (Chronic) Hyperlipidemia (Chronic) Under care of cardiology. Will need to update labs. Hypothyroidism (Chronic) Thyroid replacement d/cd although not sure why. Will need to check labs and determine why this is. Patient unable to answer. Diabetic polyneuropathy (Chronic) Asthma (Chronic) Charcot's joint of right foot (Chronic) - Past Surgical History Surgical History: dilatation and curettage, - - Tubal Ligation 1985; Right knee Tib fx with hardware ;LUE Fistula with fistulogram - Social History Smoking Status: Never smoker - Family History Maternal Family History: Family History (Last Reviewed 12/23/18 @ 09:49 by Karime Mcrae) Mother Arthritis Cancer Hormone deficiency Thyroid disorder Osteoporosis Skin cancer Father Arthritis Diabetes Heart disease Hypertension High cholesterol CVA (cerebral vascular accident) History Items: Cancer - lung, melanoma Paternal Family History: Family History (Last Reviewed 12/23/18 @ 09:49 by Karime Mcrae) Mother Arthritis Cancer Hormone deficiency Thyroid disorder Osteoporosis Skin cancer Father Arthritis Diabetes Heart disease Hypertension High cholesterol CVA (cerebral vascular accident) History Items: Diabetes Review of Systems Constitutional: Reports: Fever, Weakness, Fatigue. Denies: Anorexia, Chills Eyes: Denies: Vision Change HEENT: Denies: Head Aches Cardiovascular: Reports: Edema. Denies: Chest Pain Gastrointestinal: Reports: - - bloated. Denies: Abdominal Pain, Hematemesis, Hematochezia, Nausea, Melena, Vomiting Genitourinary: Reports: - - decreased urine output. Denies: Dysuria Musculoskeletal: Reports: Arm Pain - arm swelling, - - DJD Neurological: Reports: Balance problems - chronic from DJD. Denies: Tremor, Seizures Psychiatric: Reports: Anxiety, Depression Hematologic/ Lymphatic: Reports: Anemia Patient Problems: Active and Suspected Problems (Last Updated 12/23/18 @ 09:50 by Karime Mcrae) Acute on chronic anemia (Acute) - Physical Exam General: Alert, Oriented x3, Cooperative, No apparent distress HEENT: PERRLA, EOMI Oral: Dry Mucosa Neck: Supple Lungs: Rales - right base Cardiovascular: Regular rate, Murmur Abdomen: Bowel Sounds Present, Soft, Non Tender, Non-Distended, Obese Extremities: Edema - mild LUE edema, - - AVF poor thrill and bruit Skin: No rashes Musculoskeletal: No Muscle Wasting, Arthritic Changes, - - DJD, difficulty with ambulation, debilitated Neurological: Cranial nerves II-XII grossly intact Psych/Mental Status: Normal Affect, Appropriate, Alert and oriented to time, place, person, mood and affect Vital Signs Temp Pulse Resp BP Pulse Ox 97.7 F L 77 15 145/70 H 97 01/15/19 14:51 01/15/19 18:00 01/15/19 18:00 01/15/19 18:00 01/15/19 18:00 Oxygen Flow Rate (L/min) 2 Oxygen Delivery Method Nasal Cannula Weight: 78.8 kg Body Mass Index (BMI) 34.7 Finger Stick Blood Glucose 179 Intake and Output for Last 24 Hours 01/13/19 01/14/19 01/15/19 23:59 23:59 23:59 Intake Total 346 / 346 1680 / 1680 Output Total 300 / 300 3000 / 3000 Balance 46 / 46 -1320 / -1320 Microbiology Past 72 Hours 01/14/19 22:40 Respiratory Panel (PCR) - Final Mucosa - Nasopharyngeal Laboratory Tests Past 24 Hrs 01/14/19 01/14/19 01/14/19 20:34 20:34 23:14 Hgb 7.4 L Hct 23.3 L Immature Plt Fraction Retic Count Immature Retic Fraction Retic Hgb Equivalent Sodium Potassium Chloride Carbon Dioxide Anion Gap BUN Creatinine Estim Creat Clear Calc Est GFR (MDRD) Af Amer Est GFR (MDRD) Non-Af BUN/Creatinine Ratio Glucose Hemoglobin A1c Calcium Magnesium Iron TIBC Iron Saturation Ferritin Total Bilirubin AST ALT Alkaline Phosphatase Troponin I < 0.015 < 0.015 Total Protein Albumin Globulin Albumin/Globulin Ratio Triglycerides Cholesterol LDL Cholesterol VLDL Cholesterol HDL Cholesterol TSH Free T4 Hep Bs Antigen Hep B Core Total Ab Hepatitis Be Antibody MRSA (PCR) Blood Type Antibody Screen Crossmatch 01/14/19 01/15/19 01/15/19 23:45 00:03 02:33 Hgb Hct Immature Plt Fraction 5.5 Retic Count 1.61 H Immature Retic Fraction 9.30 Retic Hgb Equivalent 27.2 L Sodium Potassium Chloride Carbon Dioxide Anion Gap BUN Creatinine Estim Creat Clear Calc Est GFR (MDRD) Af Amer Est GFR (MDRD) Non-Af BUN/Creatinine Ratio Glucose 507 H* Hemoglobin A1c Calcium Magnesium Iron TIBC Iron Saturation Ferritin Total Bilirubin AST ALT Alkaline Phosphatase Troponin I Total Protein Albumin Globulin Albumin/Globulin Ratio Triglycerides Cholesterol LDL Cholesterol VLDL Cholesterol HDL Cholesterol TSH Free T4 Hep Bs Antigen Hep B Core Total Ab Hepatitis Be Antibody MRSA (PCR) Negative Blood Type Antibody Screen Crossmatch 01/15/19 01/15/19 01/15/19 02:33 02:33 05:25 Hgb Hct Immature Plt Fraction Retic Count Immature Retic Fraction Retic Hgb Equivalent Sodium 132 L Potassium 7.4 H* Chloride 103 Carbon Dioxide 19.0 L Anion Gap 10 BUN 70 H Creatinine 4.53 H Estim Creat Clear Calc 16.69 Est GFR (MDRD) Af Amer 13 L Est GFR (MDRD) Non-Af 11 L BUN/Creatinine Ratio 15.5 Glucose 570 H* Hemoglobin A1c 8.8 H Calcium 7.7 L Magnesium 2.2 Iron 29 L TIBC 185 L Iron Saturation 15.7 Ferritin 383 H Total Bilirubin 0.30 AST 10 L ALT 19 Alkaline Phosphatase 121 H Troponin I < 0.015 Total Protein 5.9 L Albumin 2.4 L Globulin 3.5 Albumin/Globulin Ratio 0.7 L Triglycerides 61 Cholesterol 140 LDL Cholesterol 71 VLDL Cholesterol 12 HDL Cholesterol 57 TSH 2.46 Free T4 0.91 Hep Bs Antigen Hep B Core Total Ab Hepatitis Be Antibody MRSA (PCR) Blood Type Antibody Screen Crossmatch 01/15/19 01/15/19 Hep Bs Antigen Pending Hep B Core Total Ab Pending Hepatitis Be Antibody Pending MRSA (PCR) Blood Type A POSITIVE Antibody Screen NEGATIVE Crossmatch See Detail POC Glucose 01/15/19 01/15/19 01/15/19 17:44 13:16 11:46 POC Glucose 198 H 179 H 345 H 01/15/19 01/15/19 01/15/19 10:44 09:57 08:50 POC Glucose 484 H* > 500 H* > 500 H* 01/15/19 01/14/19 06:58 23:40 POC Glucose > 500 H* 453 H* Clinical Impression(s) from Imaging Studies Chest X-Ray 01/14/19 15:12 IMPRESSION: Bilateral diffuse airspace disease. Follow-up is recommended. Electronically Signed: Todd Curry, at 15:38 EDT , Service support , Assessment/Plan All Active Problems (Last Updated 12/23/18 @ 09:50 by Karime Mcrae) Acute on chronic anemia (Acute) History of non-ST elevation myocardial infarction (NSTEMI) (Acute) Hyperkalemia (Acute) Problem with dialysis access (Acute) DKA (diabetic ketoacidoses) (Resolved) NSTEMI (non-ST elevated myocardial infarction) (Resolved) Syncope (Resolved) 1. Acute on CKD stage 4 with underlying diabetic nephropathy. Baseline creatinine mid 2's now 4.5 with oliguria, fluid overload. Dialysis today. May need to resume chronic dialysis. Pt recovered renal fxn back in April 2018, not requiring dialysis until now. 2. Malfunction AVF s/p fistulogram with angioplasty, poor bruit and thrill. May need consult with Dr. Wagner for re-evaluation. Difficulty cannulating today on dialysis. 3. Acute hyperkalemia requiring urgent dialysis 4. Acute anemia s/p 2u prbc on dialysis. Iron deficiency anemia start iv iron on dialysis. Check stool for occult blood 5. Hypoxemia with SOB, acute CHF. improved with dialysis, 3L fluid removed. 6. HTN stable 7. CAP on antibx 8. DM type 1 with hyperglycemia, metabolic acidosis
--- NOTE | 2019-01-15 19:14 | DIALYSIS ---
Hemodialysis completed using left arm fistula . 3 liters removed and 2 units PRBCs given on dialysis. See dialysis flowsheet for details. Patient tolerated well.
[2019-01-15 19:43] LABS: Anion Gap 9 (5-15); BUN 38 mg/dL (7-18); BUN/Creat Ratio 14.4 RATIO (10-20); Calcium,Total 7.7 mg/dL (8.5-10.1); Chloride 101 mmol/L (98-107); Creatinine, Serum 2.63 mg/dL (0.55-1.02); EST Glomerular Filtration Rate 20 mL/min (>60); Est Glom Filt Rate - Afr Amer 24 mL/min (>60); Glucose 255 mg/dL (74-106); Potassium 4.1 mmol/L (3.5-5.1); Sodium Level 137 mmol/L (136-145)
[2019-01-15] MEDS: Atorvastatin Calcium 80 MG Tablet PO (22:21)
[2019-01-15] MEDS: Heparin Injection (Vial) 5,000 UNIT/ML VIAL 5000 UNIT SC (22:24)
[2019-01-15] MEDS: Insulin Lispro 100 UNIT/ML INSULN.PEN SC (22:34)
[2019-01-15 22:41] LABS: Bedside Glucose 278 mg/dL (70-110)
[2019-01-15] MEDS: Ondansetron 4 MG/2 ML Vial IV (23:08)
[2019-01-15] MEDS: Ceftriaxone 1 GM/50 ML BAG IV (23:13)
[2019-01-15] MEDS: oxyCODONE 5 MG Tablet PO (23:36)
[2019-01-16] VITALS (18 sets, daily range): BP systolic 91–160; BP diastolic 39–72; PULSE 65–83; RESP 8–16; TEMP 36.1–36.7; O2SAT 89–100
[2019-01-16] MEDS: 0.9% NaCl Peripheral Flush Adult/Peds IV (03:39)
[2019-01-16 04:03] LABS: Absolute Lymphocyte Count 0.92 X10^3/ul (0.83-4.51); Absolute Neutrophil Count 5.2 X10^3/uL (2.0-7.7); Albumin, Serum 2.4 g/dL (3.2-5.0); BUN 43 mg/dL (7-18); BUN/Creat Ratio 13.8 RATIO (10-20); Basophil# 0.05 X10^3/uL; Basophil% 0.7 % (0-1); Calcium,Total 7.5 mg/dL (8.5-10.1); Chloride 99 mmol/L (98-107); Creatinine, Serum 3.11 mg/dL (0.55-1.02); EST Glomerular Filtration Rate 16 mL/min (>60); Eosinophil# 0.17 X10^3/uL; Eosinophils% 2.3 % (0-5); Est Glom Filt Rate - Afr Amer 20 mL/min (>60); Estimated Creatinine Clearance 24.53 ml/min; Glucose 296 mg/dL (74-106); Hematocrit 29.2 % (37-47); Hemoglobin 9.5 g/dl (12.0-15.0); Lymphocyte # 0.92 X10^3/ul (4.0); Lymphocyte % 12.7 % (19-41); Mean Corp Hgb Conc 32.5 g/gl (32-36); Mean Corpuscular Hgb 30.4 pg (27.0-32.0); Mean Corpuscular Volume 93.3 fL (81-99); Mean Platelet Vol. 11.9 fl (6.2-12.0); Monocyte# 0.85 X10^3/uL; Monocyte% 11.7 % (0-10); Neutrophil # 5.24 X10^3/uL (2.7-7.7); Neutrophil % 72.3 % (47-70); Phosphorus 4.7 mg/dL (2.5-4.9); Platelet Count 208 K/mm3 (150-450); Potassium 3.9 mmol/L (3.5-5.1); RBC Distribution Width CV 13.5 % (11.6-14.6); RBC Distribution Width SD 44.3 fl (35.1-43.9); Red Blood Count 3.13 M/mm3 (4.2-5.4); Sodium Level 137 mmol/L (136-145); White Blood Count 7.3 K/mm3 (4.4-11.0)
[2019-01-16 04:29] LABS: POSITIVE COUNT NO; POSITIVE DIFFERENTIAL NO; POSITIVE MORPHOLOGY NO
[2019-01-16] MEDS: Levothyroxine 137 MCG Tablet PO (05:23)
--- NOTE | 2019-01-16 05:55 | RAD_ITS ---
STUDY: X-RAY CHEST REASON FOR EXAM: Female, 58 years old. Lower lung space edema. TECHNIQUE: Single AP portable view of the chest. COMPARISON: 14 January 2019 FINDINGS: Compared to previous exam there is mild reduced airspace disease within the bilateral mid to lower lungs. There is increased aeration within the basilar segments. Small right effusion remains. There is no demonstrated pleural abnormality. Normal size heart. Normal mediastinum and donato. Normal visualized pulmonary arteries. Normal visualized aortic arch and descending thoracic aorta. Normal visualized thoracic spine. Normal visualized ribs, clavicles, and shoulders. There is no demonstrated abnormality of the visualized soft tissue structures of the upper abdomen. RAD/Chest PA and Lateral IMPRESSION: Improved bilateral mid to lower lung airspace disease with continuing right small effusion. Electronically Signed: Eric Gomez DO at 8:39 EDT , Service support ,
[2019-01-16 06:18] LABS: Color, Urine Yellow (Yellow); Glucose, Dipstick 100 mg/dl (Normal); Ketone-Dipstick Negative (Negative); Leukocyte Esterase-Dipstick 25 /ul (Negative); Nitrite-Dipstick Negative (Negative); Occult Blood-Urine 10 /ul (Negative); Protein-Dipstick 100 mg/dl (Negative); Urine Clarity Clear (Clear); Urine Urobilinogen Normal (Normal)
[2019-01-16 06:19] LABS: Urine Bilirubin Dipstick 1 mg/dL (Negative)
--- NOTE | 2019-01-16 06:25 | PCM.PN.INT ---
Subjective: The patient was seen and examined at the bedside this morning. Events from the last 24 hours have been reviewed. The patient is currently afebrile, hemodynamically stable and maintaining appropriate oxygen saturations on 2 L/min via nasal cannula. The patient was dialyzed yesterday with 3 L of fluid removed and 2 units of packed red blood cells given while on dialysis. The patient's hemoglobin improved from 7.4 to 9.5 g/dL. The patient denies the presence of abdominal pain this morning. Objective: The patient's most recent lab work, culture data and imaging studies have all been personally reviewed. Strep and urine Legionella antigens were both negative. Respiratory viral panel was negative. Stool for occult blood was negative. Surface echocardiogram revealed evidence of stage I diastolic dysfunction with an ejection fraction of 65%. Right ventricular systolic pressure was estimated to be 50 mmHg. General: Alert, Cooperative, No apparent distress HEENT: Atraumatic, PERRLA, Normocephalic Oral: No Gingival or Mucosal Lesions/ Ulcerations Neck: Supple, No Nodes, Trachea Midline Lungs: No rhonchi, No wheeze, No rales, Diminished Cardiovascular: Regular rate, Regular Rhythm, Normal S1, Normal S2, No murmurs Abdomen: Bowel Sounds Present, Soft, Non Tender, Obese Extremities: No clubbing, No cyanosis, Edema Skin: No breakdown Musculoskeletal: No Tenderness to Palpation of Joints or Extremities, No Muscle Wasting Lymphatic: No Cervical, Supraclavicular, or Inguinal Adenopathy Neurological: Cranial nerves II-XII grossly intact, Neuro grossly intact Psych/Mental Status: Alert and oriented to time, place, person, mood and affect Vital Signs Temp Pulse Resp BP Pulse Ox 97.0 F L 71 11 L 114/53 L 100 01/16/19 00:00 01/16/19 04:00 01/16/19 04:00 01/16/19 04:00 01/16/19 04:00 Oxygen Flow Rate (L/min) 2 Oxygen Delivery Method Nasal Cannula Weight: 172 lb 2.896 oz Body Mass Index (BMI) 34.7 Finger Stick Blood Glucose 179 Intake and Output for Last 24 Hours 01/14/19 01/15/19 01/16/19 23:59 23:59 23:59 Intake Total 346 / 346 1680 / 1680 418 / 418 Output Total 300 / 300 6000 / 6000 20 / 20 Balance 46 / 46 -4320 / -4320 398 / 398 Labs (Last 48 Hours) 01/14/19 01/14/19 01/14/19 15:50 15:50 15:50 WBC 6.0 RBC 2.40 L Hgb 7.4 L Hct 23.7 L MCV 98.8 MCH 30.8 MCHC 31.2 L RDW 12.1 RDW Differential 43.4 Plt Count 226 MPV 11.1 Immature Gran % (Auto) 0.200 Neut % (Auto) 82.7 H Lymph % (Auto) 8.8 L [place] % (Auto) 4.5 Eos % (Auto) 3.0 Baso % (Auto) 0.8 Absolute Neuts (auto) 5.0 Absolute Lymphs (auto) 0.53 L Total Counted Not Reportable Differential Comment SCANNED Immature Plt Fraction Retic Count Immature Retic Fraction Retic Hgb Equivalent Sodium 137 Potassium 5.4 H Chloride 107 Carbon Dioxide 22.0 Anion Gap 8 BUN 57 H Creatinine 4.07 H Estim Creat Clear Calc 19.19 Est GFR (MDRD) Af Amer 15 L Est GFR (MDRD) Non-Af 12 L BUN/Creatinine Ratio 14.0 Glucose 246 H Hemoglobin A1c Calcium 8.5 Phosphorus Magnesium Iron TIBC Iron Saturation Ferritin Total Bilirubin AST ALT Alkaline Phosphatase Troponin I < 0.015 B-Natriuretic Peptide 162.5 H Total Protein Albumin Globulin Albumin/Globulin Ratio Triglycerides Cholesterol LDL Cholesterol VLDL Cholesterol HDL Cholesterol TSH Free T4 Urine Color Urine Clarity Urine pH Ur Specific [place] Urine Protein Urine Glucose (UA) Urine Ketones Urine Occult Blood Urine Nitrite Urine Bilirubin Urine Urobilinogen Ur Leukocyte Esterase Hep Bs Antigen Hep B Core Total Ab Hepatitis Be Antibody MRSA (PCR) POC Glucose Blood Type Antibody Screen Crossmatch 01/14/19 01/14/19 01/14/19 20:34 20:34 23:14 WBC RBC Hgb 7.4 L Hct 23.3 L MCV MCH MCHC RDW RDW Differential Plt Count MPV Immature Gran % (Auto) Neut % (Auto) Lymph % (Auto) [place] % (Auto) Eos % (Auto) Baso % (Auto) Absolute Neuts (auto) Absolute Lymphs (auto) Total Counted Differential Comment Immature Plt Fraction Retic Count Immature Retic Fraction Retic Hgb Equivalent Sodium Potassium Chloride Carbon Dioxide Anion Gap BUN Creatinine Estim Creat Clear Calc Est GFR (MDRD) Af Amer Est GFR (MDRD) Non-Af BUN/Creatinine Ratio Glucose Hemoglobin A1c Calcium Phosphorus Magnesium Iron TIBC Iron Saturation Ferritin Total Bilirubin AST ALT Alkaline Phosphatase Troponin I < 0.015 < 0.015 B-Natriuretic Peptide Total Protein Albumin Globulin Albumin/Globulin Ratio Triglycerides Cholesterol LDL Cholesterol VLDL Cholesterol HDL Cholesterol TSH Free T4 Urine Color Urine Clarity Urine pH Ur Specific [place] Urine Protein Urine Glucose (UA) Urine Ketones Urine Occult Blood Urine Nitrite Urine Bilirubin Urine Urobilinogen Ur Leukocyte Esterase Hep Bs Antigen Hep B Core Total Ab Hepatitis Be Antibody MRSA (PCR) POC Glucose Blood Type Antibody Screen Crossmatch 01/14/19 01/14/19 01/15/19 23:40 23:45 00:03 WBC RBC Hgb Hct MCV MCH MCHC RDW RDW Differential Plt Count MPV Immature Gran % (Auto) Neut % (Auto) Lymph % (Auto) [place] % (Auto) Eos % (Auto) Baso % (Auto) Absolute Neuts (auto) Absolute Lymphs (auto) Total Counted Differential Comment Immature Plt Fraction Retic Count Immature Retic Fraction Retic Hgb Equivalent Sodium Potassium Chloride Carbon Dioxide Anion Gap BUN Creatinine Estim Creat Clear Calc Est GFR (MDRD) Af Amer Est GFR (MDRD) Non-Af BUN/Creatinine Ratio Glucose 507 H* Hemoglobin A1c Calcium Phosphorus Magnesium Iron TIBC Iron Saturation Ferritin Total Bilirubin AST ALT Alkaline Phosphatase Troponin I B-Natriuretic Peptide Total Protein Albumin Globulin Albumin/Globulin Ratio Triglycerides Cholesterol LDL Cholesterol VLDL Cholesterol HDL Cholesterol TSH Free T4 Urine Color Urine Clarity Urine pH Ur Specific [place] Urine Protein Urine Glucose (UA) Urine Ketones Urine Occult Blood Urine Nitrite Urine Bilirubin Urine Urobilinogen Ur Leukocyte Esterase Hep Bs Antigen Hep B Core Total Ab Hepatitis Be Antibody MRSA (PCR) Negative POC Glucose 453 H* Blood Type Antibody Screen Crossmatch 01/15/19 01/15/19 01/15/19 02:33 02:33 02:33 WBC RBC Hgb Hct MCV MCH MCHC RDW RDW Differential Plt Count MPV Immature Gran % (Auto) Neut % (Auto) Lymph % (Auto) [place] % (Auto) Eos % (Auto) Baso % (Auto) Absolute Neuts (auto) Absolute Lymphs (auto) Total Counted Differential Comment Immature Plt Fraction 5.5 Retic Count 1.61 H Immature Retic Fraction 9.30 Retic Hgb Equivalent 27.2 L Sodium Potassium Chloride Carbon Dioxide Anion Gap BUN Creatinine Estim Creat Clear Calc Est GFR (MDRD) Af Amer Est GFR (MDRD) Non-Af BUN/Creatinine Ratio Glucose Hemoglobin A1c 8.8 H Calcium Phosphorus Magnesium Iron TIBC Iron Saturation Ferritin Total Bilirubin AST ALT Alkaline Phosphatase Troponin I < 0.015 B-Natriuretic Peptide Total Protein Albumin Globulin Albumin/Globulin Ratio Triglycerides Cholesterol LDL Cholesterol VLDL Cholesterol HDL Cholesterol TSH Free T4 Urine Color Urine Clarity Urine pH Ur Specific [place] Urine Protein Urine Glucose (UA) Urine Ketones Urine Occult Blood Urine Nitrite Urine Bilirubin Urine Urobilinogen Ur Leukocyte Esterase Hep Bs Antigen Hep B Core Total Ab Hepatitis Be Antibody MRSA (PCR) POC Glucose Blood Type Antibody Screen Crossmatch 01/15/19 01/15/19 01/15/19 05:25 06:58 08:50 WBC RBC Hgb Hct MCV MCH MCHC RDW RDW Differential Plt Count MPV Immature Gran % (Auto) Neut % (Auto) Lymph % (Auto) [place] % (Auto) Eos % (Auto) Baso % (Auto) Absolute Neuts (auto) Absolute Lymphs (auto) Total Counted Differential Comment Immature Plt Fraction Retic Count Immature Retic Fraction Retic Hgb Equivalent Sodium 132 L Potassium 7.4 H* Chloride 103 Carbon Dioxide 19.0 L Anion Gap 10 BUN 70 H Creatinine 4.53 H Estim Creat Clear Calc 16.69 Est GFR (MDRD) Af Amer 13 L Est GFR (MDRD) Non-Af 11 L BUN/Creatinine Ratio 15.5 Glucose 570 H* Hemoglobin A1c Calcium 7.7 L Phosphorus Magnesium 2.2 Iron 29 L TIBC 185 L Iron Saturation 15.7 Ferritin 383 H Total Bilirubin 0.30 AST 10 L ALT 19 Alkaline Phosphatase 121 H Troponin I B-Natriuretic Peptide Total Protein 5.9 L Albumin 2.4 L Globulin 3.5 Albumin/Globulin Ratio 0.7 L Triglycerides 61 Cholesterol 140 LDL Cholesterol 71 VLDL Cholesterol 12 HDL Cholesterol 57 TSH 2.46 Free T4 0.91 Urine Color Urine Clarity Urine pH Ur Specific [place] Urine Protein Urine Glucose (UA) Urine Ketones Urine Occult Blood Urine Nitrite Urine Bilirubin Urine Urobilinogen Ur Leukocyte Esterase Hep Bs Antigen Hep B Core Total Ab Hepatitis Be Antibody MRSA (PCR) POC Glucose > 500 H* > 500 H* Blood Type Antibody Screen Crossmatch 01/15/19 01/15/19 01/15/19 09:57 10:44 11:00 WBC RBC Hgb Hct MCV MCH MCHC RDW RDW Differential Plt Count MPV Immature Gran % (Auto) Neut % (Auto) Lymph % (Auto) [place] % (Auto) Eos % (Auto) Baso % (Auto) Absolute Neuts (auto) Absolute Lymphs (auto) Total Counted Differential Comment Immature Plt Fraction Retic Count Immature Retic Fraction Retic Hgb Equivalent Sodium Potassium Chloride Carbon Dioxide Anion Gap BUN Creatinine Estim Creat Clear Calc Est GFR (MDRD) Af Amer Est GFR (MDRD) Non-Af BUN/Creatinine Ratio Glucose Hemoglobin A1c Calcium Phosphorus Magnesium Iron TIBC Iron Saturation Ferritin Total Bilirubin AST ALT Alkaline Phosphatase Troponin I B-Natriuretic Peptide Total Protein Albumin Globulin Albumin/Globulin Ratio Triglycerides Cholesterol LDL Cholesterol VLDL Cholesterol HDL Cholesterol TSH Free T4 Urine Color Urine Clarity Urine pH Ur Specific [place] Urine Protein Urine Glucose (UA) Urine Ketones Urine Occult Blood Urine Nitrite Urine Bilirubin Urine Urobilinogen Ur Leukocyte Esterase Hep Bs Antigen Hep B Core Total Ab Hepatitis Be Antibody MRSA (PCR) POC Glucose > 500 H* 484 H* Blood Type A POSITIVE Antibody Screen NEGATIVE Crossmatch See Detail 01/15/19 01/15/19 01/15/19 11:46 13:16 13:30 WBC RBC Hgb Hct MCV MCH MCHC RDW RDW Differential Plt Count MPV Immature Gran % (Auto) Neut % (Auto) Lymph % (Auto) [place] % (Auto) Eos % (Auto) Baso % (Auto) Absolute Neuts (auto) Absolute Lymphs (auto) Total Counted Differential Comment Immature Plt Fraction Retic Count Immature Retic Fraction Retic Hgb Equivalent Sodium Potassium Chloride Carbon Dioxide Anion Gap BUN Creatinine Estim Creat Clear Calc Est GFR (MDRD) Af Amer Est GFR (MDRD) Non-Af BUN/Creatinine Ratio Glucose Hemoglobin A1c Calcium Phosphorus Magnesium Iron TIBC Iron Saturation Ferritin Total Bilirubin AST ALT Alkaline Phosphatase Troponin I B-Natriuretic Peptide Total Protein Albumin Globulin Albumin/Globulin Ratio Triglycerides Cholesterol LDL Cholesterol VLDL Cholesterol HDL Cholesterol TSH Free T4 Urine Color Urine Clarity Urine pH Ur Specific [place] Urine Protein Urine Glucose (UA) Urine Ketones Urine Occult Blood Urine Nitrite Urine Bilirubin Urine Urobilinogen Ur Leukocyte Esterase Hep Bs Antigen Pending Hep B Core Total Ab Pending Hepatitis Be Antibody Pending MRSA (PCR) POC Glucose 345 H 179 H Blood Type Antibody Screen Crossmatch 01/15/19 01/15/19 01/15/19 17:00 17:44 22:31 WBC RBC Hgb Hct MCV MCH MCHC RDW RDW Differential Plt Count MPV Immature Gran % (Auto) Neut % (Auto) Lymph % (Auto) [place] % (Auto) Eos % (Auto) Baso % (Auto) Absolute Neuts (auto) Absolute Lymphs (auto) Total Counted Differential Comment Immature Plt Fraction Retic Count Immature Retic Fraction Retic Hgb Equivalent Sodium 137 Potassium 4.1 Chloride 101 Carbon Dioxide 27.0 Anion Gap 9 BUN 38 H Creatinine 2.63 H Estim Creat Clear Calc 29.00 Est GFR (MDRD) Af Amer 24 L Est GFR (MDRD) Non-Af 20 L BUN/Creatinine Ratio 14.4 Glucose 255 H Hemoglobin A1c Calcium 7.7 L Phosphorus Magnesium Iron TIBC Iron Saturation Ferritin Total Bilirubin AST ALT Alkaline Phosphatase Troponin I B-Natriuretic Peptide Total Protein Albumin Globulin Albumin/Globulin Ratio Triglycerides Cholesterol LDL Cholesterol VLDL Cholesterol HDL Cholesterol TSH Free T4 Urine Color Urine Clarity Urine pH Ur Specific [place] Urine Protein Urine Glucose (UA) Urine Ketones Urine Occult Blood Urine Nitrite Urine Bilirubin Urine Urobilinogen Ur Leukocyte Esterase Hep Bs Antigen Hep B Core Total Ab Hepatitis Be Antibody MRSA (PCR) POC Glucose 198 H 278 H Blood Type Antibody Screen Crossmatch 01/16/19 01/16/19 01/16/19 03:40 03:40 05:55 WBC 7.3 RBC 3.13 L Hgb 9.5 L Hct 29.2 L MCV 93.3 MCH 30.4 MCHC 32.5 RDW 13.5 RDW Differential 44.3 H Plt Count 208 MPV 11.9 Immature Gran % (Auto) 0.300 Neut % (Auto) 72.3 H Lymph % (Auto) 12.7 L [place] % (Auto) 11.7 H Eos % (Auto) 2.3 Baso % (Auto) 0.7 Absolute Neuts (auto) 5.2 Absolute Lymphs (auto) 0.92 Total Counted Not Reportable Differential Comment Immature Plt Fraction Retic Count Immature Retic Fraction Retic Hgb Equivalent Sodium 137 Potassium 3.9 Chloride 99 Carbon Dioxide 29.0 Anion Gap BUN 43 H Creatinine 3.11 H Estim Creat Clear Calc 24.53 Est GFR (MDRD) Af Amer 20 L Est GFR (MDRD) Non-Af 16 L BUN/Creatinine Ratio 13.8 Glucose 296 H Hemoglobin A1c Calcium 7.5 L Phosphorus 4.7 Magnesium Iron TIBC Iron Saturation Ferritin Total Bilirubin AST ALT Alkaline Phosphatase Troponin I B-Natriuretic Peptide Total Protein Albumin 2.4 L Globulin Albumin/Globulin Ratio Triglycerides Cholesterol LDL Cholesterol VLDL Cholesterol HDL Cholesterol TSH Free T4 Urine Color Yellow Urine Clarity Clear Urine pH 5.0 Ur Specific [place] 1.020 Urine Protein 100 H Urine Glucose (UA) 100 H Urine Ketones Negative Urine Occult Blood 10 H Urine Nitrite Negative Urine Bilirubin 1 H Urine Urobilinogen Normal Ur Leukocyte Esterase 25 H Hep Bs Antigen Hep B Core Total Ab Hepatitis Be Antibody MRSA (PCR) POC Glucose Blood Type Antibody Screen Crossmatch Microbiology 01/15/19 20:40 Stool Stool Occult Blood (EDIS) - Final 01/14/19 22:40 Mucosa - Nasopharyngeal Respiratory Panel (PCR) - Final Clinical Impression(s) from Imaging Studies Chest X-Ray 01/14/19 15:12 IMPRESSION: Bilateral diffuse airspace disease. Follow-up is recommended. Electronically Signed: Todd Curry, at 15:38 EDT , Service support , Medical Necessity - Tobacco Use Smoking Status: Never smoker Tobacco Use: Non-smoker Assessment/Plan All Active Problems (Last Updated 12/23/18 @ 09:50 by Karime Mcrae) Acute on chronic anemia (Acute) Anemia (Acute) History of non-ST elevation myocardial infarction (NSTEMI) (Acute) Hyperkalemia (Acute) Problem with dialysis access (Acute) DKA (diabetic ketoacidoses) (Resolved) NSTEMI (non-ST elevated myocardial infarction) (Resolved) Syncope (Resolved) RECOMMENDATIONS: 1. Surgery planning for possible endoscopy tomorrow due to anemia. 2. Continue hemodialysis support per nephrology recommendations. 3. Wean supplemental oxygen to maintain saturations at or above 90%. Encourage incentive spirometer use. 4. Monitor H&H daily. Transfuse for hemoglobin less than 7 g/dL. 5. Continue antibiotics. IMPRESSIONS: 1. Acute hypoxemic respiratory insufficiency Clinical concern for underlying pulmonary infectious process versus decompensated heart failure. Repeat echocardiogram revealed continued evidence of diastolic dysfunction and pulmonary hypertension. The patient has responded favorably to dialysis and volume removal. She will be continued on antimicrobials for possible community-acquired pneumonia. Supplemental oxygen can be weaned accordingly. Encourage incentive spirometer use and mobilize patient as tolerated. 2. Normocytic anemia The patient does appear to have a component of iron deficiency anemia, for which she received 2 units of packed red blood cells on January 15. She did respond appropriately. General surgery was contacted and has plans for tentative endoscopy tomorrow. Continue to monitor H&H daily. Transfuse if hemoglobin is less than 7 g/dL. 3. Acute on chronic kidney disease/hyperkalemia/non-gap metabolic acidosis The patient has known CKD stage IV due to diabetic nephropathy and currently follows with Dr. Pineda. Continue hemodialysis support per nephrology recommendations. 4. History of heart failure with preserved ejection fraction Continue volume optimization as tolerated. 5. Anxiety/depression/hypothyroidism/hyperlipidemia/hypertension/diabetes mellitus Complicates care, management, recovery and prognosis. Okay to continue home medications from my perspective. This note was generated with [employer] dictation software. It may contain incorrect words, spelling, and punctuation that were not noted in checking the note before signing. DISPOSITION: The patient is medically stable for transfer out of the intensive care unit. Code Visit Inpatient E&M: 81345 Subs Hosp L3
--- NOTE | 2019-01-16 07:34 | PCM.CONS.GEN ---
Problem List (1) Anemia Status: Acute Qualifiers: Anemia type: iron deficiency Iron deficiency anemia type: unspecified iron deficiency Qualified Code(s): D50.9 - Iron deficiency anemia, unspecified Reason for Consult Date of Consultation: 01/16/19 Reason for Consultation: Iron deficiency anemia History of Present Illness: The patient is a 58 year old F who was in the ICU for DKA. There was noted that the patient was anemic on presentation. Patient says she had an attempted colonoscopy recently where the prep was not adequate. She was asked to come back for a re-scope but never did. She is not describing any gross blood in her stool or black tarry stools. She denies any abdominal pain. She says she was very bloated yesterday before her dialysis but now feels much better. She was given Kayexalate yesterday had a large bowel movement. She is not having any nausea or vomiting. Past Medical History Past Medical History (Chronic Problems): Chronic Problems (Last Updated 12/23/18 @ 09:50 by Karime Mcrae) Ascites (Chronic) Nonrheumatic mitral valve regurgitation (Chronic) Atherosclerotic heart disease of [place] coronary artery without angina pectoris (Chronic) Chronic kidney disease, stage 4, severely decreased GFR (Chronic) under care of nephrology. CHF (congestive heart failure) (Chronic) Diabetes type I (Chronic) Dx : age 4 Last exacerbation : DKA : 2015 Hypoglycemic episode : 2016 ER visit : 2016 No data for review. Patient is ask to bring data to office for download. Discussed checking BG before meals and 2 hours post meal. Discussed carb counting meals and we reviewed how to carb count and also reading labels. We reviewd how to determine I/c ratios. Reviewed possibly using insulin pump in future. Is on arb. On statin. . Chronic kidney disease, stage 4, severely decreased GFR (Chronic) HTN (hypertension) (Chronic) Hyperlipidemia (Chronic) Under care of cardiology. Will need to update labs. Hypothyroidism (Chronic) Thyroid replacement d/cd although not sure why. Will need to check labs and determine why this is. Patient unable to answer. Diabetic polyneuropathy (Chronic) Asthma (Chronic) Charcot's joint of right foot (Chronic) Medical History: Medical History (Last Updated 12/23/18 @ 09:50 by Karime Mcrae) Nonrheumatic mitral valve regurgitation (Chronic) I34.0 History of non-ST elevation myocardial infarction (NSTEMI) (Acute) I25.2 Atherosclerotic heart disease of [place] coronary artery without angina pectoris (Chronic) I25.10 Diabetes type I (Chronic) Dx : age 4 Last exacerbation : DKA : 2015 Hypoglycemic episode : 2016 ER visit : 2016 No data for review. Patient is ask to bring data to office for download. Discussed checking BG before meals and 2 hours post meal. Discussed carb counting meals and we reviewed how to carb count and also reading labels. We reviewd how to determine I/c ratios. Reviewed possibly using insulin pump in future. Is on arb. On statin. . Chronic kidney disease, stage 4, severely decreased GFR (Chronic) N18.4 HTN (hypertension) (Chronic) I10 Hyperlipidemia (Chronic) E78.5 Under care of cardiology. Will need to update labs. Hypothyroidism (Chronic) E03.9 Thyroid replacement d/cd although not sure why. Will need to check labs and determine why this is. Patient unable to answer. Diabetic polyneuropathy (Chronic) E11.42 Asthma (Chronic) J45.909 Charcot's joint of right foot (Chronic) M14.671 Anemia D64.9 Anxiety and depression F41.9, F32.9 Arthritis M19.90 Bone fracture T14.8XXA Breast lump N63.0 Cataracts, bilateral H26.9 Chronic headaches R51 GI problem R19.8 H/O transfusion of whole blood Z92.89 Hives L50.9 Hormone deficiency E34.8 Hypoglycemia E16.2 Osteoporosis M81.0 Recurrent UTI N39.0 Seasonal allergies J30.2 Seizure R56.9 Vascular disease I99.9 Vision problem H54.7 Vitamin deficiency E56.9 abnormal calcium level Aortic valve disorder (Inactive) I35.9 Pneumonia (Inactive) J18.9 Allergies prednisone Allergy (Unknown, Verified 12/23/18 09:48) Unknown prochlorperazine edisylate [From Compazine] Adverse Reaction (Verified 12/23/18 09:48) Other i wig out prochlorperazine maleate [From Compazine] Adverse Reaction (Verified 12/23/18 09:48) Other Home Medications: Ambulatory Orders Medication Instructions Recorded Clonazepam [Klonopin] 0.5 mg PO Q8H PRN PRN 12/17/17 gabapentin 300 mg capsule 300 mg PO BID cap 12/18/17 aspirin 81 mg tablet,delayed 81 mg PO DAILY 04/08/18 release Insulin Glulisine [Apidra SoloStar See Rx Instructions SQ DAILY 11/22/18 U-100 Insulin] losartan 25 mg tablet 25 mg PO DAILY 12/14/18 Atorvastatin Calcium [Lipitor] 80 mg PO QHS 01/14/19 Citalopram Hydrobromide 20 mg PO QHS 01/14/19 [Citalopram HBr] Docusate Sodium [Colace] 100 mg PO DAILY 01/14/19 Insulin Detemir [Levemir FlexPen] 8 units SQ BID 01/14/19 Levothyroxine [Synthroid] 137 mcg PO DAILY 01/14/19 Surgical History: Surgical History (Last Updated 12/23/18 @ 09:51 by Karime Mcrae) history fistulagram Onset Date: ~12/16/18 left arm fistula creation 08/07/17 H/O dilation and curettage Z98.890 H/O tubal ligation Z98.51 History of amputation of right great toe Z98.890, Z89.411 History of hand surgery Z98.890 Hx of cataract surgery Z98.49 Wrist fracture S62.109A raquel removal r leg tibula/fibula surgery Surgical History: dilatation and curettage, - - Tubal Ligation 1985; Dilation and currettage 1984, 2006; Right knee Tib fx with hardware ;LUE Fistula, currently maturing. Smoking Status: Never smoker Tobacco Use: Non-smoker - *Family History Maternal Family History: Family History (Last Reviewed 12/23/18 @ 09:49 by Karime Mcrae) Mother Arthritis Cancer Hormone deficiency Thyroid disorder Osteoporosis Skin cancer Father Arthritis Diabetes Heart disease Hypertension High cholesterol CVA (cerebral vascular accident) History Items: Cancer - lung, melanoma Paternal Family History: Family History (Last Reviewed 12/23/18 @ 09:49 by Karime Mcrae) Mother Arthritis Cancer Hormone deficiency Thyroid disorder Osteoporosis Skin cancer Father Arthritis Diabetes Heart disease Hypertension High cholesterol CVA (cerebral vascular accident) History Items: Diabetes Review of Systems Constitutional: Denies: Anorexia, Fever HEENT: Denies: Difficulty Swallowing Cardiovascular: Denies: Chest Pain Respiratory: Denies: Cough Gastrointestinal: Reports: Diarrhea. Denies: Abdominal Pain, Hematemesis, Hematochezia, Nausea, Melena, Vomiting Genitourinary: Denies: Dysuria Musculoskeletal: Reports: Joint swelling. Denies: Joint Tenderness Skin: Denies: Jaundice Neurological: Denies: Difficulty swallowing Psychiatric: Denies: Depression Hematologic/ Lymphatic: Reports: Anemia Patient Problems: Active and Suspected Problems (Last Updated 12/23/18 @ 09:50 by Karime Mcrae) Acute on chronic anemia (Acute) Anemia (Acute) - Physical Exam General: Alert, Oriented x3, Cooperative, No apparent distress HEENT: Atraumatic, PERRLA, EOMI Neck: No JVD Lungs: Normal air movement Cardiovascular: Regular rate, Regular Rhythm Abdomen: Soft, Non Tender, Distended Extremities: Edema Skin: No rashes Musculoskeletal: No Muscle Wasting Neurological: Cranial nerves II-XII grossly intact Psych/Mental Status: Normal Affect, Appropriate Vital Signs Temp Pulse Resp BP Pulse Ox 97.7 F L 71 9 L 133/67 H 100 01/16/19 05:00 01/16/19 06:45 01/16/19 06:45 01/16/19 06:45 01/16/19 06:45 Oxygen Flow Rate (L/min) 2 Oxygen Delivery Method Nasal Cannula Weight: 172 lb 2.896 oz Body Mass Index (BMI) 34.7 Finger Stick Blood Glucose 179 Intake and Output for Last 24 Hours 01/14/19 01/15/19 01/16/19 23:59 23:59 23:59 Intake Total 346 / 346 1680 / 1680 618 / 618 Output Total 300 / 300 6000 / 6000 240 / 240 Balance 46 / 46 -4320 / -4320 378 / 378 Microbiology Past 72 Hours 01/16/19 05:55 Streptococcus pneumoniae Antigen (M - Final Urine Catheter - [place] 01/16/19 05:55 Legionella Antigen - Final Interface Orders 01/15/19 20:40 Stool Occult Blood (EDIS) - Final Stool 01/14/19 22:40 Respiratory Panel (PCR) - Final Mucosa - Nasopharyngeal Laboratory Tests Past 24 Hrs 01/15/19 01/15/19 01/15/19 11:00 13:30 17:00 WBC RBC Hgb Hct MCV MCH MCHC RDW RDW Differential Plt Count MPV Immature Gran % (Auto) Neut % (Auto) Lymph % (Auto) [place] % (Auto) Eos % (Auto) Baso % (Auto) Absolute Neuts (auto) Absolute Lymphs (auto) Total Counted Sodium 137 Potassium 4.1 Chloride 101 Carbon Dioxide 27.0 Anion Gap 9 BUN 38 H Creatinine 2.63 H Estim Creat Clear Calc 29.00 Est GFR (MDRD) Af Amer 24 L Est GFR (MDRD) Non-Af 20 L BUN/Creatinine Ratio 14.4 Glucose 255 H Calcium 7.7 L Phosphorus Albumin Urine Color Urine Clarity Urine pH Ur Specific [place] Urine Protein Urine Glucose (UA) Urine Ketones Urine Occult Blood Urine Nitrite Urine Bilirubin Urine Urobilinogen Ur Leukocyte Esterase Hep Bs Antigen Pending Hep B Core Total Ab Pending Hepatitis Be Antibody Pending Blood Type A POSITIVE Antibody Screen NEGATIVE Crossmatch See Detail 01/16/19 01/16/19 01/16/19 03:40 03:40 05:55 WBC 7.3 RBC 3.13 L Hgb 9.5 L Hct 29.2 L MCV 93.3 MCH 30.4 MCHC 32.5 RDW 13.5 RDW Differential 44.3 H Plt Count 208 MPV 11.9 Immature Gran % (Auto) 0.300 Neut % (Auto) 72.3 H Lymph % (Auto) 12.7 L [place] % (Auto) 11.7 H Eos % (Auto) 2.3 Baso % (Auto) 0.7 Absolute Neuts (auto) 5.2 Absolute Lymphs (auto) 0.92 Total Counted Not Reportable Sodium 137 Potassium 3.9 Chloride 99 Carbon Dioxide 29.0 Anion Gap BUN 43 H Creatinine 3.11 H Estim Creat Clear Calc 24.53 Est GFR (MDRD) Af Amer 20 L Est GFR (MDRD) Non-Af 16 L BUN/Creatinine Ratio 13.8 Glucose 296 H Calcium 7.5 L Phosphorus 4.7 Albumin 2.4 L Urine Color Yellow Urine Clarity Clear Urine pH 5.0 Ur Specific [place] 1.020 Urine Protein 100 H Urine Glucose (UA) 100 H Urine Ketones Negative Urine Occult Blood 10 H Urine Nitrite Negative Urine Bilirubin 1 H Urine Urobilinogen Normal Ur Leukocyte Esterase 25 H Hep Bs Antigen Hep B Core Total Ab Hepatitis Be Antibody Blood Type Antibody Screen Crossmatch POC Glucose 01/15/19 01/15/19 01/15/19 22:31 17:44 13:16 POC Glucose 278 H 198 H 179 H 01/15/19 01/15/19 01/15/19 11:46 10:44 09:57 POC Glucose 345 H 484 H* > 500 H* 01/15/19 08:50 POC Glucose > 500 H* Assessment/Plan All Active Problems (Last Updated 12/23/18 @ 09:50 by Karime Mcrae) Acute on chronic anemia (Acute) Anemia (Acute) History of non-ST elevation myocardial infarction (NSTEMI) (Acute) Hyperkalemia (Acute) Problem with dialysis access (Acute) DKA (diabetic ketoacidoses) (Resolved) NSTEMI (non-ST elevated myocardial infarction) (Resolved) Syncope (Resolved) 58-year-old female with iron deficiency anemia 1. The patient is admitted for DKA and had dialysis yesterday. Patient is chronic kidney failure with a recent fistula. She had fistulogram last week. 2. I was consulted for iron deficiency anemia. Patient has never had an EGD and her last colonoscopy that was actually successful was over 10 years ago. I will bowel prep her today and make her clear liquid only. If her stools are coming clear by tomorrow I will take her tomorrow afternoon for EGD and colonoscopy. 3. I explained endoscopy in detail to the patient. I explained the risks including but not limited to stroke or heart attack with anesthesia, perforation of the GI tract, bleeding, infection. I explained that any of these could necessitate further emergency surgery. The patient understands and all questions were answered sufficiently. The patient wishes to proceed with procedure. Leonardo Contreras MD Pager: [facility] [address] [place] [address] [address] [place] [address] Office:
[2019-01-16 07:51] LABS: Bedside Glucose 234 mg/dL (70-110)
--- NOTE | 2019-01-16 09:32 | PCM.PN.HOSP ---
Patient Problems: Active and Suspected Problems (Last Updated 12/23/18 @ 09:50 by Karime Mcrae) Acute on chronic anemia (Acute) Anemia (Acute) Subjective: Patient seen and examined. She had an uneventful night and had no complaints this morning. Review of systems otherwise negative. She had dialysis yesterday. Hyperkalemia has resolved. She received 2 units of packed red blood cells yesterday. General surgery on board on account of anemia and she is due to have EGD and colonoscopy tomorrow. Labs and vitals reviewed. Vitals/I&O's: Vital Signs Temp Pulse Resp BP Pulse Ox 97.7 F L 71 9 L 133/67 H 100 01/16/19 05:00 01/16/19 06:45 01/16/19 06:45 01/16/19 06:45 01/16/19 06:45 Oxygen Flow Rate (L/min) 2 Oxygen Delivery Method Nasal Cannula Weight: 172 lb 2.896 oz Body Mass Index (BMI) 34.7 Finger Stick Blood Glucose 179 Intake and Output for Last 24 Hours 01/14/19 01/15/19 01/16/19 23:59 23:59 23:59 Intake Total 346 / 346 1680 / 1680 618 / 618 Output Total 300 / 300 6000 / 6000 240 / 240 Balance 46 / 46 -4320 / -4320 378 / 378 General: Alert, Oriented x3, Cooperative HEENT: Atraumatic, PERRLA, EOMI, Normocephalic Oral: Dry Mucosa Neck: Supple, No JVD, Negative Carotid Bruits Lungs: Clear to auscultation, Normal air movement, No rhonchi, No wheeze, No rales Cardiovascular: Regular rate, Regular Rhythm, Normal S1, Normal S2, No murmurs Extremities: No clubbing, No cyanosis, No edema, Capillary Refill Less than 3 Seconds Skin: No rashes, No breakdown Musculoskeletal: No Tenderness to Palpation of Joints or Extremities, - - AV fistula in right upper forearm, with weak thrill Lymphatic: No Cervical, Supraclavicular, or Inguinal Adenopathy Neurological: Cranial nerves II-XII grossly intact Psych/Mental Status: Normal Affect, Appropriate, Alert and oriented to time, place, person, mood and affect Microbiology Past 72 Hours 01/16/19 05:55 Urine Catheter - [place] Streptococcus pneumoniae Antigen (M - Final 04/14/19 05:55 Interface Orders Legionella Antigen - Final 01/15/19 20:40 Stool Stool Occult Blood (EDIS) - Final 01/14/19 22:40 Mucosa - Nasopharyngeal Respiratory Panel (PCR) - Final Laboratory Results 01/15/19 09:57: POC Glucose > 500 H* 01/15/19 10:44: POC Glucose 484 H* 01/15/19 11:00: Blood Type A POSITIVE, Antibody Screen NEGATIVE, Crossmatch See Detail 01/15/19 11:46: POC Glucose 345 H 01/15/19 13:16: POC Glucose 179 H 01/15/19 13:30: Hep Bs Antigen Pending, Hep B Core Total Ab Pending, Hepatitis Be Antibody Pending 01/15/19 17:00: Sodium 137, Potassium 4.1, Chloride 101, Carbon Dioxide 27.0, Anion Gap 9, BUN 38 H, Creatinine 2.63 H, Estim Creat Clear Calc 29.00, Est GFR (MDRD) Af Amer 24 L, Est GFR (MDRD) Non-Af 20 L, BUN/Creatinine Ratio 14.4, Glucose 255 H, Calcium 7.7 L 01/15/19 17:44: POC Glucose 198 H 01/15/19 22:31: POC Glucose 278 H 01/16/19 03:40: Sodium 137, Potassium 3.9, Chloride 99, Carbon Dioxide 29.0, BUN 43 H, Creatinine 3.11 H, Estim Creat Clear Calc 24.53, Est GFR (MDRD) Af Amer 20 L, Est GFR (MDRD) Non-Af 16 L, BUN/Creatinine Ratio 13.8, Glucose 296 H, Calcium 7.5 L, Phosphorus 4.7, Albumin 2.4 L 01/16/19 03:40: WBC 7.3, RBC 3.13 L, Hgb 9.5 L, Hct 29.2 L, MCV 93.3, MCH 30.4, MCHC 32.5, RDW 13.5, RDW Differential 44.3 H, Plt Count 208, MPV 11.9, Immature Gran % (Auto) 0.300, Neut % (Auto) 72.3 H, Lymph % (Auto) 12.7 L, [place] % (Auto) 11.7 H, Eos % (Auto) 2.3, Baso % (Auto) 0.7, Absolute Neuts (auto) 5.2, Absolute Lymphs (auto) 0.92, Total Counted Not Reportable 01/16/19 05:55: Urine Color Yellow, Urine Clarity Clear, Urine pH 5.0, Ur Specific [place] 1.020, Urine Protein 100 H, Urine Glucose (UA) 100 H, Urine Ketones Negative, Urine Occult Blood 10 H, Urine Nitrite Negative, Urine Bilirubin 1 H, Urine Urobilinogen Normal, Ur Leukocyte Esterase 25 H 01/16/19 07:45: POC Glucose 234 H Current Medications Acetaminophen (Tylenol) 650 mg PO Q6H PRN PRN PRN Reason: Mild Pain (scale 0-3)/T>100.7 Albuterol Sulfate (Ventolin Aerosols) 2.5 mg INHALATION Q2H PRN PRN PRN Reason: SHORTNESS OF BREATH Aspirin (Ecotrin) 81 mg PO DAILY@0800 [facility] Last Admin: 01/15/19 09:11 Dose: Not Given Atorvastatin Calcium (Lipitor) 80 mg PO QHS [facility] Last Admin: 01/15/19 22:21 Dose: 80 mg Bisacodyl (Dulcolax) 10 mg RECTAL DAILY PRN PRN PRN Reason: Constipation Citalopram Hydrobromide (Celexa) 20 mg PO QHS [facility] Last Admin: 01/15/19 22:24 Dose: 20 mg Clonazepam (Klonopin) 0.5 mg PO Q8H PRN PRN PRN Reason: ANXIETY Last Admin: 01/15/19 17:31 Dose: 0.5 mg Dextrose (D50w Syringe) 0 gm IV X1 PRN; Protocol PRN Reason: Hypoglycemia Docusate Sodium (Colace) 200 mg PO BID PRN PRN PRN Reason: Constipation Gabapentin (Neurontin) 300 mg PO BID [facility] Last Admin: 01/15/19 22:21 Dose: 300 mg Glucagon () 1 mg IM .X1 PRN PRN Reason: Hypoglycemia Guaifenesin (Mucinex) 1,200 mg PO BID [facility] Last Admin: 01/15/19 22:22 Dose: 1,200 mg Heparin Sodium (Porcine) (Heparin Na) 5,000 unit SC Q12 [facility] Last Admin: 01/15/19 22:24 Dose: 5,000 unit Azithromycin 500 mg/ Dextrose 255 mls @ 250 mls/hr IV Q24H [facility] Stop: 01/16/19 21:02 Last Admin: 01/15/19 22:21 Dose: 250 mls/hr Ceftriaxone Sodium (Rocephin) 1 gm in 50 mls @ 100 mls/hr IV Q24H [facility] Last Admin: 01/15/19 23:13 Dose: 100 mls/hr Insulin Glargine (Lantus (Bkc)) 10 units SC BID [facility] Last Admin: 01/15/19 22:33 Dose: 10 u Insulin Human Lispro (Humalog Kwikpen (Bkc)) 0 unit SC ACHS [facility]; Protocol Last Admin: 01/15/19 22:34 Dose: 6 u Iron Sucrose (Venofer) 100 mg IV .DIALYSIS [facility] Last Admin: 01/15/19 13:56 Dose: 100 mg Levothyroxine Sodium (Synthroid) 137 mcg PO DAILY@0600 [facility] Last Admin: 01/16/19 05:23 Dose: 137 mcg Ondansetron HCl (Zofran) 4 mg IV Q8H PRN PRN PRN Reason: Nausea Last Admin: 01/15/19 23:08 Dose: 4 mg Oxycodone HCl (Oxyir) 5 mg PO Q4H PRN PRN PRN Reason: Moderate Pain (pain scale 4-5) Last Admin: 01/15/19 23:36 Dose: 5 mg Polyethylene Glycol (Miralax) 17 gm PO DAILY [facility] Last Admin: 01/15/19 14:27 Dose: Not Given Sodium Chloride () 5 - 15 ml IV UD PRN PRN Reason: SALINE FLUSH Last Admin: 01/16/19 03:39 Dose: 10 ml Sodium Chloride/Electrolytes (Nulytely) 4,000 ml PO X1 ONE Stop: 01/16/19 12:01 Zolpidem Tartrate (Ambien (Generic)) 5 mg PO QHS PRN PRN PRN Reason: SLEEP Medical Necessity - Tobacco Use Smoking Status: Never smoker Tobacco Use: Non-smoker Assessment/Plan All Active Problems (Last Updated 12/23/18 @ 09:50 by Karime Mcrae) Acute on chronic anemia (Acute) Anemia (Acute) History of non-ST elevation myocardial infarction (NSTEMI) (Acute) Hyperkalemia (Acute) Problem with dialysis access (Acute) DKA (diabetic ketoacidoses) (Resolved) NSTEMI (non-ST elevated myocardial infarction) (Resolved) Syncope (Resolved) 1. Anasarca due to JAYLIN on CKD improved significantly after she had emergent dialysis had removal of 6L of fluid with dialysis yesterday nephrology on board 2. Severe hyperkalemia due to JAYLIN on CKD resolved with dialysis. K is 4.9 today nephrology on board 3. Severe hyperglycemia blood sugar peaked at 575 yesterday, necessitating insulin drip now on her home dose of insulin blood sugar was 296 this morning. accuchecks ACHS; ISS 4. JAYLIN on CKD IV: as under 1. 5. Community acquired pneumonia: on IV ceftriaxone and azithromycin. urine for strep and legionella negative. Respiratory panel negative. CXR showed possible interstial edema vrs bilateral infiltrates has no fever or leucocytosis will dc antibioitics as CXR findings were likely due to fluid overload 6. Acute on chronic anemia Hb on admission was 7.4; is s/p transfusion of 2 units of PRBC Hb today is 9, which is around her baseline general surgery on board Had a colonoscopy in July 2018 but due to poor prep she was asked to repeat it in 2 weeks. No record that this was repeated. for EGD and colonoscopy tomorrow 7. Acute on chronic heart failure with preserved ejection fraction: BNP was only mildly elevated at 162. initially received IV lasix, but this was held, per nephrology received dialysis yesterday which helped with fluid overload 8. Type 2 diabetes mellitus: as under 3. A1C-8.8. Insulin resumed yesterday; on 10IU bid. Accuchecks ACHS. ISS 9. Hypothyroidism: On Synthroid 10. Hyperlipidemia: on atorvastatin 11. Hypertension: On losartan 12. Depression: On citalopram DVT prophylaxis: Heparin CODE STATUS: Full code Disposition: Transferred back to PCU today. Code Visit Inpatient E&M: 56760 Subs Hosp L3
--- NOTE | 2019-01-16 09:41 | PN_ITS ---
Patient Problems: Active and Suspected Problems (Last Updated 12/23/18 @ 09:50 by Karime Mcrae) Acute on chronic anemia (Acute) Anemia (Acute) Subjective: Patient seen and examined. She had an uneventful night and had no complaints this morning. Review of systems otherwise negative. She had dialysis yesterday. Hyperkalemia has resolved. She received 2 units of packed red blood cells yesterday. General surgery on board on account of anemia and she is due to have EGD and colonoscopy tomorrow. Labs and vitals reviewed. Vitals/I&O's: Vital Signs Temp Pulse Resp BP Pulse Ox 97.7 F L 71 9 L 133/67 H 100 01/16/19 05:00 01/16/19 06:45 01/16/19 06:45 01/16/19 06:45 01/16/19 06:45 Oxygen Flow Rate (L/min) 2 Oxygen Delivery Method Nasal Cannula Weight: 172 lb 2.896 oz Body Mass Index (BMI) 34.7 Finger Stick Blood Glucose 179 Intake and Output for Last 24 Hours 01/14/19 01/15/19 01/16/19 23:59 23:59 23:59 Intake Total 346 / 346 1680 / 1680 618 / 618 Output Total 300 / 300 6000 / 6000 240 / 240 Balance 46 / 46 -4320 / -4320 378 / 378 General: Alert, Oriented x3, Cooperative HEENT: Atraumatic, PERRLA, EOMI, Normocephalic Oral: Dry Mucosa Neck: Supple, No JVD, Negative Carotid Bruits Lungs: Clear to auscultation, Normal air movement, No rhonchi, No wheeze, No rales Cardiovascular: Regular rate, Regular Rhythm, Normal S1, Normal S2, No murmurs Extremities: No clubbing, No cyanosis, No edema, Capillary Refill Less than 3 Se conds Skin: No rashes, No breakdown Musculoskeletal: No Tenderness to Palpation of Joints or Extremities, - - AV fistula in right upper forearm, with weak thrill Lymphatic: No Cervical, Supraclavicular, or Inguinal Adenopathy Neurological: Cranial nerves II-XII grossly intact Psych/Mental Status: Normal Affect, Appropriate, Alert and oriented to time, place, person, mood and affect Microbiology Past 72 Hours 01/16/19 05:55 Urine Catheter - Eugene Streptococcus pneumoniae Antigen (M - Final 01/16/19 05:55 Interface Orders Legionella Antigen - Final 01/15/19 20:40 Stool Stool Occult Blood (EDIS) - Final 01/14/19 22:40 Mucosa - Nasopharyngeal Respiratory Panel (PCR) - Final Laboratory Results 01/15/19 09:57: POC Glucose > 500 H* 01/15/19 10:44: POC Glucose 484 H* 01/15/19 11:00: Blood Type A POSITIVE, Antibody Screen NEGATIVE, Crossmatch See Detail 01/15/19 11:46: POC Glucose 345 H 01/15/19 13:16: POC Glucose 179 H 01/15/19 13:30: Hep Bs Antigen Pending, Hep B Core Total Ab Pending, Hepatitis Be Antibody Pending 01/15/19 17:00: Sodium 137, Potassium 4.1, Chloride 101, Carbon Dioxide 27.0, Anion Gap 9, BUN 38 H, Creatinine 2.63 H, Estim Creat Clear Calc 29.00, Est GFR (MDRD) Af Amer 24 L, Est GFR (MDRD) Non-Af 20 L, BUN/Creatinine Ratio 14.4, Glucose 255 H, Calcium 7.7 L 01/15/19 17:44: POC Glucose 198 H 01/15/19 22:31: POC Glucose 278 H 01/16/19 03:40: Sodium 137, Potassium 3.9, Chloride 99, Carbon Dioxide 29.0, BUN 43 H, Creatinine 3.11 H, Estim Creat Clear Calc 24.53, Est GFR (MDRD) Af Amer 20 L, Est GFR (MDRD) Non-Af 16 L, BUN/Creatinine Ratio 13.8, Glucose 296 H, Calcium 7.5 L, Phosphorus 4.7, Albumin 2.4 L 01/16/19 03:40: WBC 7.3, RBC 3.13 L, Hgb 9.5 L, Hct 29.2 L, MCV 93.3, MCH 30.4, MCHC 32.5, RDW 13.5, RDW Differential 44.3 H, Plt Count 208, MPV 11.9, Immature Gran % (Auto) 0.300, Neut % (Auto) 72.3 H, Lymph % (Auto) 12.7 L, [place] % (Auto) 11.7 H, Eos % (Auto) 2.3, Baso % (Auto) 0.7, Absolute Neuts (auto) 5.2, Absolute Lymphs (auto) 0.92, Total Counted Not Reportable 01/16/19 05:55: Urine Color Yellow, Urine Clarity Clear, Urine pH 5.0, Ur Specific [place] 1.020, Urine Protein 100 H, Urine Glucose (UA) 100 H, Urine Ketones Negative, Urine Occult Blood 10 H, Urine Nitrite Negative, Urine Bilirubin 1 H, Urine Urobilinogen Normal, Ur Leukocyte Esterase 25 H 01/16/19 07:45: POC Glucose 234 H Current Medications Acetaminophen (Tylenol) 650 mg PO Q6H PRN PRN PRN Reason: Mild Pain (scale 0-3)/T>100.7 Albuterol Sulfate (Ventolin Aerosols) 2.5 mg INHALATION Q2H PRN PRN PRN Reason: SHORTNESS OF BREATH Aspirin (Ecotrin) 81 mg PO DAILY@0800 [facility] Last Admin: 01/15/19 09:11 Dose: Not Given Atorvastatin Calcium (Lipitor) 80 mg PO QHS [facility] Last Admin: 01/15/19 22:21 Dose: 80 mg Bisacodyl (Dulcolax) 10 mg RECTAL DAILY PRN PRN PRN Reason: Constipation Citalopram Hydrobromide (Celexa) 20 mg PO QHS [facility] Last Admin: 01/15/19 22:24 Dose: 20 mg Clonazepam (Klonopin) 0.5 mg PO Q8H PRN PRN PRN Reason: ANXIETY Last Admin: 01/15/19 17:31 Dose: 0.5 mg Dextrose (D50w Syringe) 0 gm IV X1 PRN; Protocol PRN Reason: Hypoglycemia Docusate Sodium (Colace) 200 mg PO BID PRN PRN PRN Reason: Constipation Gabapentin (Neurontin) 300 mg PO BID [facility] Last Admin: 01/15/19 22:21 Dose: 300 mg Glucagon () 1 mg IM .X1 PRN PRN Reason: Hypoglycemia Guaifenesin (Mucinex) 1,200 mg PO BID [facility] Last Admin: 01/15/19 22:22 Dose: 1,200 mg Heparin Sodium (Porcine) (Heparin Na) 5,000 unit SC Q12 [facility] Last Admin: 01/15/19 22:24 Dose: 5,000 unit Azithromycin 500 mg/ Dextrose 255 mls @ 250 mls/hr IV Q24H [facility] Stop: 01/16/19 21:02 Last Admin: 01/15/19 22:21 Dose: 250 mls/hr Ceftriaxone Sodium (Rocephin) 1 gm in 50 mls @ 100 mls/hr IV Q24H [facility] Last Admin: 01/15/19 23:13 Dose: 100 mls/hr Insulin Glargine (Lantus (Bkc)) 10 units SC BID [facility] Last Admin: 01/15/19 22:33 Dose: 10 u Insulin Human Lispro (Humalog Kwikpen (Bk)) 0 unit SC ACHS [facility]; Protocol Last Admin: 01/15/19 22:34 Dose: 6 u Iron Sucrose (Venofer) 100 mg IV .DIALYSIS [facility] Last Admin: 01/15/19 13:56 Dose: 100 mg Levothyroxine Sodium (Synthroid) 137 mcg PO DAILY@0600 [facility] Last Admin: 01/16/19 05:23 Dose: 137 mcg Ondansetron HCl (Zofran) 4 mg IV Q8H PRN PRN PRN Reason: Nausea Last Admin: 01/15/19 23:08 Dose: 4 mg Oxycodone HCl (Oxyir) 5 mg PO Q4H PRN PRN PRN Reason: Moderate Pain (pain scale 4-5) Last Admin: 01/15/19 23:36 Dose: 5 mg Polyethylene Glycol (Miralax) 17 gm PO DAILY [facility] Last Admin: 01/15/19 14:27 Dose: Not Given Sodium Chloride () 5 - 15 ml IV UD PRN PRN Reason: SALINE FLUSH Last Admin: 01/16/19 03:39 Dose: 10 ml Sodium Chloride/Electrolytes (Nulytely) 4,000 ml PO X1 ONE Stop: 01/16/19 12:01 Zolpidem Tartrate (Ambien (Generic)) 5 mg PO QHS PRN PRN PRN Reason: SLEEP Medical Necessity - Tobacco Use Smoking Status: Never smoker Tobacco Use: Non-smoker Assessment/Plan All Active Problems (Last Updated 12/23/18 @ 09:50 by Karime Mcrae) Acute on chronic anemia (Acute) Anemia (Acute) History of non-ST elevation myocardial infarction (NSTEMI) (Acute) Hyperkalemia (Acute) Problem with dialysis access (Acute) DKA (diabetic ketoacidoses) (Resolved) NSTEMI (non-ST elevated myocardial infarction) (Resolved) Syncope (Resolved) 1. Anasarca due to JAYLIN on CKD * improved significantly after she had emergent dialysis * had removal of 6L of fluid with dialysis yesterday * nephrology on board * 2. Severe hyperkalemia due to JAYLIN on CKD * resolved with dialysis. K is 4.9 today * nephrology on board * * 3. Severe hyperglycemia * blood sugar peaked at 575 yesterday, necessitating insulin drip * now on her home dose of insulin * blood sugar was 296 this morning. * accuchecks ACHS; ISS 4. JAYLIN on CKD IV: as under 1. * 5. Community acquired pneumonia: * on IV ceftriaxone and azithromycin. * urine for strep and legionella negative. Respiratory panel negative. * CXR showed possible interstial edema vrs bilateral infiltrates * has no fever or leucocytosis * will dc antibioitics as CXR findings were likely due to fluid overload * 6. Acute on chronic anemia * Hb on admission was 7.4; is s/p transfusion of 2 units of PRBC * Hb today is 9, which is around her baseline * general surgery on board * Had a colonoscopy in July 2018 but due to poor prep she was asked to repeat it in 2 weeks. No record that this was repeated. * for EGD and colonoscopy tomorrow * 7. Acute on chronic heart failure with preserved ejection fraction: * BNP was only mildly elevated at 162. * initially received IV lasix, but this was held, per nephrology * received dialysis yesterday which helped with fluid overload * 8. Type 2 diabetes mellitus: as under 3. A1C-8.8. Insulin resumed yesterday; on 10IU bid. Accuchecks ACHS. ISS 9. Hypothyroidism: On Synthroid 10. Hyperlipidemia: on atorvastatin 11. Hypertension: On losartan 12. Depression: On citalopram DVT prophylaxis: Heparin CODE STATUS: Full code Disposition: Transferred back to PCU today. Code Visit Inpatient E&M: 68971 Subs Hosp L3
[2019-01-16] MEDS: Aspirin E.C. 81 MG Tablet PO (09:42)
[2019-01-16] MEDS: Insulin Lispro 100 UNIT/ML INSULN.PEN SC ×2 (09:42→12:43)
[2019-01-16] MEDS: guaiFENesin 1,200 MG Tablet 1200 MG PO ×2 (09:44→21:44)
[2019-01-16] MEDS: Gabapentin 300 MG Capsule PO ×2 (09:44→21:44)
[2019-01-16] MEDS: Heparin Injection (Vial) 5,000 UNIT/ML VIAL 5000 UNIT SC ×2 (09:50→21:47)
[2019-01-16 11:46] LABS: Bedside Glucose 323 mg/dL (70-110)
[2019-01-16] MEDS: Electrolyte Solution/Peg's 4000 ML PO (12:56)
[2019-01-16 16:51] LABS: Bedside Glucose 88 mg/dL (70-110)
[2019-01-16] MEDS: Atorvastatin Calcium 80 MG Tablet PO (21:44)
[2019-01-16] MEDS: Citalopram 20 MG Tablet PO (21:44)
[2019-01-16 21:50] LABS: Bedside Glucose 73 mg/dL (70-110)
[2019-01-16] MEDS: Ceftriaxone 1 GM/50 ML BAG IV (22:51)
[2019-01-17] VITALS (17 sets, daily range): BP systolic 125–173; BP diastolic 61–81; PULSE 38–94; RESP 16–18; TEMP 36.3–37.1; O2SAT 91–98; BMI 34.2
--- NOTE | 2019-01-17 | GASB_PTH ---
PATIENT: MARLENY DIXON LOC: MS3 U#:[id number] AGE/SX: 58/F ROOM: MS314 RE01/14/[address]: Dr. Nathan Blanco DO : 1960 BED: 1 DIS: 01/20/2019 SPEC #: [id number] RECD: 01/17/19 15:40 STATUS: TIMOTHY RENorma #: [id number] ODALYS: 01/17/19 00:[address]: Leonardo Contreras DEPT: SURGICAL PATHOLOGY RECD BY: Anjel Can ENTERED: 01/18/19 14:03 SP TYPE: Gastric Bx OTHR DR: DO Dr. Nathan Menendez DO Dr. Prakash Chand, MD No Primary Care Phys Tissues: A - Gastric mucous membrane B - Gastric mucous membrane Procedures: Surgery Specimen Level IV Comments: @ Ordering doctor for SUIV edited from to @ by CRISTIAN at 01/18/19 1433 @ Submitting doctor edited from to @ by RGOOD at 01/18/19 1433 HEADER OPERATION: Colonoscopy, EGD ([facility]) PRE-OP DIAGNOSIS: Anemia TISSUE SUBMITTED: A - Gastric body biopsy, B - Cardia polyp MICROSCOPIC DIAGNOSIS A. Gastric body, biopsy: Mild chronic gastritis. See comment. B. Gastric cardia polyp, biopsy: Cauterized fragments of superficial glandular tissue. AM:carroll 01/19/19 COMMENT A. The results of immunohistochemistry for Helicobacter pylori will be reported separately ([id number]). MICROSCOPIC DESCRIPTION Slides are reviewed. GROSS DESCRIPTION A - Received in fixative is one container labeled with the patient's name and designated gastric body biopsy. The specimen consists of one irregular fragment of light blanco soft tissue that measures 0.6 x 0.3 x 0.1 cm. The specimen is totally submitted in one cassette. B - Received in fixative is one container labeled with the patient's name and designated polyp cardia. The specimen consists of a fragment of hemorrhagic tissue measuring 0.3 x 0.1 x 0.1 cm. The specimen is totally submitted in one cassette. / SAROJ:carroll 01/18/19 TC:3 CPT: 69561 x2
--- NOTE | 2019-01-17 | IMM_PTH ---
PATIENT: MARLENY DIXON LOC: MS3 U#:[id number] AGE/SX: 58/F ROOM: MS314 RE01/14/[address]: Dr. Nathan Blanco DO : 1960 BED: 1 DIS: 01/20/2019 SPEC #: [id number] RECD: 01/19/19 12:55 STATUS: TIMOTHY REQ #: [id number] ODALYS: 01/17/19 00:[address]: Leonardo Contreras DEPT: IMMUNOHISTOCHEMISTRY RECD BY: Paulette Krishnamurthy ENTERED: 01/19/19 12:55 SP TYPE: IMMUNO OTHR DR: DO Dr. Nathan Menendez DO Dr. Prakash Chand, MD No Primary Care Phys Tissues: A - Stomach, NOS Procedures: H Pylori (initial) PHYSICIAN & INSTITUTION [place] [id number] SPECIMEN INFORMATION: Tissue Source: A - Gastric body biopsy Clinical Info: Anemia Specimen Number: [id number] CPT code: 39785 METHODOLOGY: Deparaffinized sections of prefer/formalin-fixed tissue or PAP/DQ stained slides are incubated with monoclonal/polyclonal antibodies/oligonucleotide probes. Localization is made via biotin free immunoperoxidase method. Appropriate controls are performed and reacted as expected. Results on target cell population are indicated in the following table: RESULTS: ANTIBODY / CLONE RESULT Block A H Pylori (polyclonal) negative These tests were developed and their performance characteristics determined by [facility]. They may not have been cleared or approved by the U.S. Food and Drug Administration. The FDA has determined that such clearance or approval is not necessary. INTERPRETATION: A. Gastric body, biopsy: Negative for Helicobacter pylori organisms. AM:carroll 01/20/19
[2019-01-17 02:13] LABS: Anion Gap 6 (5-15); BUN 46 mg/dL (7-18); BUN/Creat Ratio 14.1 RATIO (10-20); Calcium,Total 7.5 mg/dL (8.5-10.1); Chloride 100 mmol/L (98-107); Creatinine, Serum 3.27 mg/dL (0.55-1.02); EST Glomerular Filtration Rate 15 mL/min (>60); Est Glom Filt Rate - Afr Amer 19 mL/min (>60); Estimated Creatinine Clearance 23.12 ml/min; Glucose 95 mg/dL (74-106); Potassium 4.4 mmol/L (3.5-5.1); Sodium Level 134 mmol/L (136-145)
--- NOTE | 2019-01-17 05:55 | EKG12_ITS ---
Test Reason : AM EKG Blood Pressure : / mmHG Vent. Rate : 076 BPM Atrial Rate : 076 BPM P-R Int : 110 ms QRS Dur : 086 ms QT Int : 394 ms P-R-T Axes : 035 008 156 degrees QTc Int : 443 ms Sinus rhythm with short TN Nonspecific T wave abnormality Abnormal ECG When compared with ECG of 15-JAN-2019 07:24, MANUAL COMPARISON REQUIRED, DATA IS UNCONFIRMED Confirmed by JENNYFER SARKAR, JORDAN ([id number]), news editor SHAMA CASAS ([id number]) on 01/19/2019 10:01:24 AM Referred By: Haroon Smith Confirmed By:JORDAN BURGER MD
[2019-01-17 06:00] LABS: International Normalized Ratio 1.2; Prothrombin Time (Protime)PT. 14.8 SECONDS (11.7-14.9)
[2019-01-17 06:01] LABS: Partial Thromboplast Time 36.5 Seconds (24.1-36.2)
[2019-01-17 06:22] LABS: Albumin, Serum 2.4 g/dL (3.2-5.0); BUN 44 mg/dL (7-18); BUN/Creat Ratio 13.9 RATIO (10-20); Calcium,Total 7.5 mg/dL (8.5-10.1); Chloride 101 mmol/L (98-107); Creatinine, Serum 3.17 mg/dL (0.55-1.02); EST Glomerular Filtration Rate 16 mL/min (>60); Est Glom Filt Rate - Afr Amer 19 mL/min (>60); Estimated Creatinine Clearance 23.85 ml/min; Glucose 76 mg/dL (74-106); Phosphorus 4.6 mg/dL (2.5-4.9); Potassium 3.6 mmol/L (3.5-5.1); Sodium Level 136 mmol/L (136-145); Thyroid Stim Hormone (TSH) 4.35 uIU/mL (0.358-3.74)
[2019-01-17] MEDS: Levothyroxine 137 MCG Tablet PO (06:22)
[2019-01-17 06:25] LABS: Absolute Lymphocyte Count 1.35 X10^3/ul (0.83-4.51); Absolute Neutrophil Count 2.4 X10^3/uL (2.0-7.7); Basophil# 0.06 X10^3/uL; Basophil% 1.3 % (0-1); Eosinophil# 0.41 X10^3/uL; Eosinophils% 8.9 % (0-5); Hemoglobin 9.5 g/dl (12.0-15.0); Lymphocyte # 1.35 X10^3/ul (4.0); Lymphocyte % 29.4 % (19-41); Mean Corp Hgb Conc 32.8 g/gl (32-36); Mean Corpuscular Hgb 30.4 pg (27.0-32.0); Mean Corpuscular Volume 92.9 fL (81-99); Mean Platelet Vol. 11.5 fl (6.2-12.0); Monocyte# 0.41 X10^3/uL; Monocyte% 8.9 % (0-10); Neutrophil # 2.36 X10^3/uL (2.7-7.7); Neutrophil % 51.5 % (47-70); Platelet Count 222 K/mm3 (150-450); RBC Distribution Width CV 13.6 % (11.6-14.6); RBC Distribution Width SD 45.6 fl (35.1-43.9); Red Blood Count 3.12 M/mm3 (4.2-5.4); White Blood Count 4.6 K/mm3 (4.4-11.0)
[2019-01-17 06:37] LABS: POSITIVE COUNT NO; POSITIVE DIFFERENTIAL NO; POSITIVE MORPHOLOGY NO
[2019-01-17 06:55] LABS: Bedside Glucose 77 mg/dL (70-110)
[2019-01-17 08:19] LABS: Hemoglobin A1c 7.7 % (4.2-6.3)
--- NOTE | 2019-01-17 08:36 | PN.SURG_ITS ---
Patient Problems: Active and Suspected Problems (Last Updated 12/23/18 @ 09:50 by Karime Mcrae) Acute on chronic anemia (Acute) Anemia (Acute) Subjective: Patient reports having clear stool after bowel prep - Physical Exam General: Alert, Oriented x3 Lungs: Normal air movement Cardiovascular: Regular rate, Regular Rhythm Abdomen: Soft, Non Tender, Non-Distended Vital Signs Temp Pulse Resp BP Pulse Ox 97.9 F 76 16 138/61 H 91 01/17/19 03:35 01/17/19 06:44 01/17/19 03:35 01/17/19 03:35 01/17/19 07:40 Oxygen Flow Rate (L/min) 2 Oxygen Delivery Method Room Air Weight: 169 lb 5.04 oz Body Mass Index (BMI) 34.7 Finger Stick Blood Glucose 179 Intake and Output for Last 24 Hours 01/15/19 01/16/19 01/17/19 23:59 23:59 23:59 Intake Total 1680 / 1680 5707 / 5707 Output Total 6000 / 6000 240 / 240 Balance -4320 / -4320 5467 / 5467 Microbiology Past 72 Hours 01/16/19 05:55 Streptococcus pneumoniae Antigen (M - Final Urine Catheter - [place] 01/16/19 05:55 Legionella Antigen - Final Interface Orders 01/15/19 20:40 Stool Occult Blood (EDIS) - Final Stool 01/14/19 22:40 Respiratory Panel (PCR) - Final Mucosa - Nasopharyngeal Laboratory Tests Past 24 Hrs 01/17/19 01/17/19 01/17/19 01:25 05:30 05:30 WBC 4.6 RBC 3.12 L Hgb 9.5 L Hct 29.0 L MCV 92.9 MCH 30.4 MCHC 32.8 RDW 13.6 RDW Differential 45.6 H Plt Count 222 MPV 11.5 Immature Gran % (Auto) 0.000 Neut % (Auto) 51.5 Lymph % (Auto) 29.4 [place] % (Auto) 8.9 Eos % (Auto) 8.9 H Baso % (Auto) 1.3 H Absolute Neuts (auto) 2.4 Absolute Lymphs (auto) 1.35 Total Counted Not Reportable PT INR APTT Sodium 134 L 136 Potassium 4.4 3.6 Chloride 100 101 Carbon Dioxide 28.0 26.0 Anion Gap 6 BUN 46 H 44 H Creatinine 3.27 H 3.17 H Estim Creat Clear Calc 23.12 23.85 Est GFR (MDRD) Af Amer 19 L 19 L Est GFR (MDRD) Non-Af 15 L 16 L BUN/Creatinine Ratio 14.1 13.9 Glucose 95 76 Hemoglobin A1c Calcium 7.5 L 7.5 L Phosphorus 4.6 Albumin 2.4 L TSH 4.35 H 01/17/19 01/17/19 05:30 05:30 WBC RBC Hgb Hct MCV MCH MCHC RDW RDW Differential Plt Count MPV Immature Gran % (Auto) Neut % (Auto) Lymph % (Auto) [place] % (Auto) Eos % (Auto) Baso % (Auto) Absolute Neuts (auto) Absolute Lymphs (auto) Total Counted PT 14.8 INR 1.2 APTT 36.5 H Sodium Potassium Chloride Carbon Dioxide Anion Gap BUN Creatinine Estim Creat Clear Calc Est GFR (MDRD) Af Amer Est GFR (MDRD) Non-Af BUN/Creatinine Ratio Glucose Hemoglobin A1c 7.7 H Calcium Phosphorus Albumin TSH POC Glucose 01/17/19 01/16/19 01/16/19 06:49 21:37 16:47 POC Glucose 77 73 88 01/16/19 11:40 POC Glucose 323 H Medical Necessity - Tobacco Use Smoking Status: Never smoker Tobacco Use: Non-smoker Assessment/Plan All Active Problems (Last Updated 12/23/18 @ 09:50 by Karime Mcrae) Acute on chronic anemia (Acute) Anemia (Acute) History of non-ST elevation myocardial infarction (NSTEMI) (Acute) Hyperkalemia (Acute) Problem with dialysis access (Acute) DKA (diabetic ketoacidoses) (Resolved) NSTEMI (non-ST elevated myocardial infarction) (Resolved) Syncope (Resolved) 58-year-old female with iron deficiency anemia 1. Plan for EGD and colonoscopy today. 2. I explained endoscopy in detail to the patient. I explained the risks including but not limited to stroke or heart attack with anesthesia, perforation of the GI tract, bleeding, infection. I explained that any of these could necessitate further emergency surgery. The patient understands and all questions were answered sufficiently. The patient wishes to proceed with procedure. Leonardo Contreras MD Pager: [facility] [address] [place] [address], [address] [place] [address] Office:
[2019-01-17] MEDS: guaiFENesin 1,200 MG Tablet 1200 MG PO ×2 (08:44→22:18)
[2019-01-17] MEDS: Gabapentin 300 MG Capsule PO ×2 (08:44→22:18)
--- NOTE | 2019-01-17 11:03 | PCM.PROGNOTE ---
Patient Problems: Active and Suspected Problems (Last Updated 12/23/18 @ 09:50 by Karime Mcrae) Acute on chronic anemia (Acute) Anemia (Acute) Subjective: no sob/cp - Physical Exam General: Alert, Oriented x3 HEENT: Atraumatic, PERRLA, EOMI Oral: Moist Mucosa Neck: Supple, No JVD Lungs: Clear to auscultation, Normal air movement Cardiovascular: Regular rate, Regular Rhythm, Normal S1, Normal S2 Abdomen: Bowel Sounds Present, Soft, Non Tender Extremities: No clubbing, No cyanosis Skin: No rashes Neurological: Neuro grossly intact Comment: left foreram avf good thrill and bruit Vital Signs Temp Pulse Resp BP Pulse Ox 97.7 F L 84 16 155/62 H 94 01/17/19 08:49 01/17/19 10:45 01/17/19 08:49 01/17/19 08:49 01/17/19 08:49 Oxygen Flow Rate (L/min) 2 Oxygen Delivery Method Room Air Weight: 76.8 kg Body Mass Index (BMI) 34.2 Finger Stick Blood Glucose 179 Intake and Output for Last 24 Hours 01/15/19 01/16/19 01/17/19 23:59 23:59 23:59 Intake Total 1680 / 1680 5707 / 5707 Output Total 6000 / 6000 240 / 240 Balance -4320 / -4320 5467 / 5467 Microbiology Past 72 Hours 01/16/19 05:55 Streptococcus pneumoniae Antigen (M - Final Urine Catheter - [place] 01/16/19 05:55 Legionella Antigen - Final Interface Orders 01/15/19 20:40 Stool Occult Blood (EDIS) - Final Stool 01/14/19 22:40 Respiratory Panel (PCR) - Final Mucosa - Nasopharyngeal Laboratory Tests Past 24 Hrs 01/17/19 01/17/19 01/17/19 01:25 05:30 05:30 WBC 4.6 RBC 3.12 L Hgb 9.5 L Hct 29.0 L MCV 92.9 MCH 30.4 MCHC 32.8 RDW 13.6 RDW Differential 45.6 H Plt Count 222 MPV 11.5 Immature Gran % (Auto) 0.000 Neut % (Auto) 51.5 Lymph % (Auto) 29.4 [place] % (Auto) 8.9 Eos % (Auto) 8.9 H Baso % (Auto) 1.3 H Absolute Neuts (auto) 2.4 Absolute Lymphs (auto) 1.35 Total Counted Not Reportable PT INR APTT Sodium 134 L 136 Potassium 4.4 3.6 Chloride 100 101 Carbon Dioxide 28.0 26.0 Anion Gap 6 BUN 46 H 44 H Creatinine 3.27 H 3.17 H Estim Creat Clear Calc 23.12 23.85 Est GFR (MDRD) Af Amer 19 L 19 L Est GFR (MDRD) Non-Af 15 L 16 L BUN/Creatinine Ratio 14.1 13.9 Glucose 95 76 Hemoglobin A1c Calcium 7.5 L 7.5 L Phosphorus 4.6 Albumin 2.4 L TSH 4.35 H 01/17/19 01/17/19 05:30 05:30 WBC RBC Hgb Hct MCV MCH MCHC RDW RDW Differential Plt Count MPV Immature Gran % (Auto) Neut % (Auto) Lymph % (Auto) [place] % (Auto) Eos % (Auto) Baso % (Auto) Absolute Neuts (auto) Absolute Lymphs (auto) Total Counted PT 14.8 INR 1.2 APTT 36.5 H Sodium Potassium Chloride Carbon Dioxide Anion Gap BUN Creatinine Estim Creat Clear Calc Est GFR (MDRD) Af Amer Est GFR (MDRD) Non-Af BUN/Creatinine Ratio Glucose Hemoglobin A1c 7.7 H Calcium Phosphorus Albumin TSH POC Glucose 01/17/19 01/16/19 01/16/19 06:49 21:37 16:47 POC Glucose 77 73 88 01/16/19 11:40 POC Glucose 323 H Medical Necessity - Tobacco Use Smoking Status: Never smoker Tobacco Use: Non-smoker Assessment/Plan All Active Problems (Last Updated 12/23/18 @ 09:50 by Karime Mcrae) Acute on chronic anemia (Acute) Anemia (Acute) History of non-ST elevation myocardial infarction (NSTEMI) (Acute) Hyperkalemia (Acute) Problem with dialysis access (Acute) DKA (diabetic ketoacidoses) (Resolved) NSTEMI (non-ST elevated myocardial infarction) (Resolved) Syncope (Resolved) JAYLIN on CKD stage 4 with underlying diabetic nephropathy. Baseline creatinine mid 2's Had emergent HD on 01/15 for K 7.4.Scr 3.1 stable for 3 days now Seems to stabilize hold ENVIRONMENTAL STUDIES DEPARTMENT CHAIR for now monitor Scr lytes Malfunction AVF s/p fistulogram with angioplasty, poor bruit and thrill. May need consult with Dr. Wagner for re-evaluation. Difficult cannulation on 01/15 Acute hyperkalemia requiring urgent dialysis resolved Anemia received iron with dialysis monitor will need more iron bp check outliers manually if persistently high will start meds Will check bmp in am Thursday and Thursday Her wireless sales manager dr. Pineda will resume care on Thursday
[2019-01-17 11:10] LABS: Bedside Glucose 195 mg/dL (70-110)
--- NOTE | 2019-01-17 11:27 | CASEMGMT ---
Social Work Note Face to face with pt to discuss services. Introduced self and role at [facility]. The pt reports to live with her daughter, Stephany (22), and her fiance. States that my daughter won't say it, but I will. She is getting worn out. Pt feels as though she is a burden. Emotional support provided. Discussed services such as palliative care, hhc, and waiver program services through pt's insurance for additional aide services. Pt declines palliative care at this time. Denies need for SNF and states she would prefer to go home with [facility] HHC at discharge. She is agreeable to having a referral for aide services. Placed call to [facility] who states that the pt does not have a case hardener through them and provides this functional tester typewriters with a number for [facility] - . Placed call and per staff member pt does have a case hardener, Sherry Fritz at [phone]. Placed call to Tierra ayala requesting that pt be established with aide services if not already, and to contact this functional tester typewriters to confirm services at this time. SW to continue to follow and assist with discharge planning. Ayesha Ramesh, ADVERTISING ASSISTANT MANAGER, SLURRY WORKER
--- NOTE | 2019-01-17 13:39 | CASEMGMT ---
Addendum entered by Ayesha Ramesh 01/17/19 14:26: Social Work Note Call back from Sherry Fritz, pillowcase cleaner, who states that she is on her way to [facility] to speak with the pt now. States that they have discussed aide services in the past and the pt has a liability of $300/month and is unwilling to pay that. Inform that pt had expressed this concern and Sherry states that she will discuss options with her again. RN CM to follow for potential dialysis and HHC setup. DELMY Naranjo LISW Original Note: Social Work Note VM from Sherry Fritz requesting a return phone call at [phone] and left a voicemail requesting a return phone call regarding confirmation of patient's services. DELMY Naranjo LISW
[2019-01-17 13:51] LABS: Bedside Glucose 248 mg/dL (70-110)
--- NOTE | 2019-01-17 15:03 | PCM.PN.HOSP ---
Patient Problems: Active and Suspected Problems (Last Updated 12/23/18 @ 09:50 by Karime Mcrae) Acute on chronic anemia (Acute) Anemia (Acute) Subjective: breathing well. Vitals/I&O's: Vital Signs Temp Pulse Resp BP Pulse Ox 36.8 C 90 18 173/81 H 93 01/17/19 13:27 01/17/19 13:27 01/17/19 13:27 01/17/19 13:27 01/17/19 13:27 Oxygen Flow Rate (L/min) 2 Oxygen Delivery Method Room Air Weight: 76.793 kg Body Mass Index (BMI) 34.2 Finger Stick Blood Glucose 179 Intake and Output for Last 24 Hours 01/15/19 01/16/19 01/17/19 23:59 23:59 23:59 Intake Total 1680 / 1680 5707 / 5707 440 / 440 Output Total 6000 / 6000 240 / 240 Balance -4320 / -4320 5467 / 5467 440 / 440 General: Alert, Cooperative, No apparent distress HEENT: Atraumatic, Normocephalic Oral: Moist Mucosa, No Gingival or Mucosal Lesions/ Ulcerations Neck: No Nodes, Thyroid Normal Size and Texture Lungs: Diminished, - - coarse breath sounds bilaterally. Cardiovascular: Regular rate, Regular Rhythm, Normal S1, Normal S2, - - 2/6 ROBERTO Abdomen: Bowel Sounds Present, Soft, Non Tender, Non-Distended, No Hepato-splenomegaly Extremities: No Calf Tenderness, Edema Skin: No rashes, No breakdown Psych/Mental Status: Normal Affect, Appropriate Microbiology Past 72 Hours 01/16/19 05:55 Urine Catheter - [place] Streptococcus pneumoniae Antigen (M - Final 01/16/19 05:55 Interface Orders Legionella Antigen - Final 01/15/19 20:40 Stool Stool Occult Blood (EDIS) - Final 01/14/19 22:40 Mucosa - Nasopharyngeal Respiratory Panel (PCR) - Final Laboratory Results 01/16/19 16:47: POC Glucose 88 01/16/19 21:37: POC Glucose 73 01/17/19 01:25: Sodium 134 L, Potassium 4.4, Chloride 100, Carbon Dioxide 28.0, Anion Gap 6, BUN 46 H, Creatinine 3.27 H, Estim Creat Clear Calc 23.12, Est GFR (MDRD) Af Amer 19 L, Est GFR (MDRD) Non-Af 15 L, BUN/Creatinine Ratio 14.1, Glucose 95, Calcium 7.5 L 01/17/19 05:30: Sodium 136, Potassium 3.6, Chloride 101, Carbon Dioxide 26.0, BUN 44 H, Creatinine 3.17 H, Estim Creat Clear Calc 23.85, Est GFR (MDRD) Af Amer 19 L, Est GFR (MDRD) Non-Af 16 L, BUN/Creatinine Ratio 13.9, Glucose 76, Calcium 7.5 L, Phosphorus 4.6, Albumin 2.4 L, TSH 4.35 H 01/17/19 05:30: WBC 4.6, RBC 3.12 L, Hgb 9.5 L, Hct 29.0 L, MCV 92.9, MCH 30.4, MCHC 32.8, RDW 13.6, RDW Differential 45.6 H, Plt Count 222, MPV 11.5, Immature Gran % (Auto) 0.000, Neut % (Auto) 51.5, Lymph % (Auto) 29.4, [place] % (Auto) 8.9, Eos % (Auto) 8.9 H, Baso % (Auto) 1.3 H, Absolute Neuts (auto) 2.4, Absolute Lymphs (auto) 1.35, Total Counted Not Reportable 01/17/19 05:30: PT 14.8, INR 1.2, APTT 36.5 H 01/17/19 05:30: Hemoglobin A1c 7.7 H 01/17/19 06:49: POC Glucose 77 01/17/19 11:03: POC Glucose 195 H 01/17/19 13:37: POC Glucose 248 H Current Medications Acetaminophen (Tylenol) 650 mg PO Q6H PRN PRN PRN Reason: Mild Pain (scale 0-3)/T>100.7 Albuterol Sulfate (Ventolin Aerosols) 2.5 mg INHALATION Q2H PRN PRN PRN Reason: SHORTNESS OF BREATH Aspirin (Ecotrin) 81 mg PO DAILY@0800 [facility] Last Admin: 01/17/19 08:42 Dose: Not Given Atorvastatin Calcium (Lipitor) 80 mg PO QHS [facility] Last Admin: 01/16/19 21:44 Dose: 80 mg Bisacodyl (Dulcolax) 10 mg RECTAL DAILY PRN PRN PRN Reason: Constipation Citalopram Hydrobromide (Celexa) 20 mg PO QHS [facility] Last Admin: 01/16/19 21:44 Dose: 20 mg Clonazepam (Klonopin) 0.5 mg PO Q8H PRN PRN PRN Reason: ANXIETY Last Admin: 01/15/19 17:31 Dose: 0.5 mg Dextrose (D50w Syringe) 0 gm IV X1 PRN; Protocol PRN Reason: Hypoglycemia Docusate Sodium (Colace) 200 mg PO BID PRN PRN PRN Reason: Constipation Gabapentin (Neurontin) 300 mg PO BID [facility] Last Admin: 01/17/19 08:44 Dose: 300 mg Glucagon () 1 mg IM .X1 PRN PRN Reason: Hypoglycemia Guaifenesin (Mucinex) 1,200 mg PO BID [facility] Last Admin: 01/17/19 08:44 Dose: 1,200 mg Heparin Sodium (Porcine) (Heparin Na) 5,000 unit SC Q12 [facility] Last Admin: 01/16/19 21:47 Dose: 5,000 unit Ceftriaxone Sodium (Rocephin) 1 gm in 50 mls @ 100 mls/hr IV Q24H [facility] Last Admin: 01/16/19 22:51 Dose: 100 mls/hr Insulin Glargine (Lantus (Bkc)) 10 units SC BID [facility] Last Admin: 01/17/19 08:42 Dose: Not Given Insulin Human Lispro (Humalog Kwikpen (Bkc)) 0 unit SC ACHS [facility]; Protocol Last Admin: 01/17/19 11:10 Dose: Not Given Iron Sucrose (Venofer) 100 mg IV .DIALYSIS [facility] Last Admin: 01/15/19 13:56 Dose: 100 mg Levothyroxine Sodium (Synthroid) 137 mcg PO DAILY@0600 [facility] Last Admin: 01/17/19 06:22 Dose: 137 mcg Ondansetron HCl (Zofran) 4 mg IV Q8H PRN PRN PRN Reason: Nausea Last Admin: 01/15/19 23:08 Dose: 4 mg Oxycodone HCl (Oxyir) 5 mg PO Q4H PRN PRN PRN Reason: Moderate Pain (pain scale 4-5) Last Admin: 01/15/19 23:36 Dose: 5 mg Polyethylene Glycol (Miralax) 17 gm PO DAILY [facility] Last Admin: 01/17/19 08:42 Dose: Not Given Sodium Chloride () 5 - 15 ml IV UD PRN PRN Reason: SALINE FLUSH Last Admin: 01/16/19 03:39 Dose: 10 ml Zolpidem Tartrate (Ambien (Generic)) 5 mg PO QHS PRN PRN PRN Reason: SLEEP Medical Necessity - Tobacco Use Smoking Status: Never smoker Tobacco Use: Non-smoker Assessment/Plan All Active Problems (Last Updated 12/23/18 @ 09:50 by Karime Mcrae) Acute on chronic anemia (Acute) Anemia (Acute) History of non-ST elevation myocardial infarction (NSTEMI) (Acute) Hyperkalemia (Acute) Problem with dialysis access (Acute) DKA (diabetic ketoacidoses) (Resolved) NSTEMI (non-ST elevated myocardial infarction) (Resolved) Syncope (Resolved) 1. 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 2. Iron-deficiency anemia stable s/p transfusion of 2 units on 01/15 iron 29, but ferritin elevated at 383 (if iron-deficient, should be <100) suspect more anemia of chronic disease rather than iron-deficiency c-scope and EGD today 3. Difficult fistula access history of fistular stenosis difficulty accessing on 01/[address] Wagner, who will see the patient in consult 4. Hyperkalemia resolved s/p HD monitor 5. HFpEF compensated 6. VTE proph: SCDs, hold chemical proph given anemia. Greater than 35 minutes of which greater than 50 % of the time was coordinating care for fistula evaluation and discussing with Dr. Wagner. Code Visit Inpatient E&M: [id number] [facility] L[facility]
--- NOTE | 2019-01-17 15:23 | PN_ITS ---
Patient Problems: Active and Suspected Problems (Last Updated 12/23/18 @ 09:50 by Karime Mcrae) Acute on chronic anemia (Acute) Anemia (Acute) Subjective: breathing well. Vitals/I&O's: Vital Signs Temp Pulse Resp BP Pulse Ox 36.8 C 90 18 173/81 H 93 01/17/19 13:27 01/17/19 13:27 01/17/19 13:27 01/17/19 13:27 01/17/19 13:27 Oxygen Flow Rate (L/min) 2 Oxygen Delivery Method Room Air Weight: 76.793 kg Body Mass Index (BMI) 34.2 Finger Stick Blood Glucose 179 Intake and Output for Last 24 Hours 01/15/19 01/16/19 01/17/19 23:59 23:59 23:59 Intake Total 1680 / 1680 5707 / 5707 440 / 440 Output Total 6000 / 6000 240 / 240 Balance -4320 / -4320 5467 / 5467 440 / 440 General: Alert, Cooperative, No apparent distress HEENT: Atraumatic, Normocephalic Oral: Moist Mucosa, No Gingival or Mucosal Lesions/ Ulcerations Neck: No Nodes, Thyroid Normal Size and Texture Lungs: Diminished, - - coarse breath sounds bilaterally. Cardiovascular: Regular rate, Regular Rhythm, Normal S1, Normal S2, - - 2/6 ROBERTO Abdomen: Bowel Sounds Present, Soft, Non Tender, Non-Distended, No Hepato- splenomegaly Extremities: No Calf Tenderness, Edema Skin: No rashes, No breakdown Psych/Mental Status: Normal Affect, Appropriate Microbiology Past 72 Hours 01/16/19 05:55 Urine Catheter - [place] Streptococcus pneumoniae Antigen (M - Final 01/16/19 05:55 Interface Orders Legionella Antigen - Final 01/15/19 20:40 Stool Stool Occult Blood (EDIS) - Final 01/14/19 22:40 Mucosa - Nasopharyngeal Respiratory Panel (PCR) - Final Laboratory Results 01/16/19 16:47: POC Glucose 88 01/16/19 21:37: POC Glucose 73 01/17/19 01:25: Sodium 134 L, Potassium 4.4, Chloride 100, Carbon Dioxide 28.0, Anion Gap 6, BUN 46 H, Creatinine 3.27 H, Estim Creat Clear Calc 23.12, Est GFR (MDRD) Af Amer 19 L, Est GFR (MDRD) Non-Af 15 L, BUN/Creatinine Ratio 14.1, Glucose 95, Calcium 7.5 L 01/17/19 05:30: Sodium 136, Potassium 3.6, Chloride 101, Carbon Dioxide 26.0, BUN 44 H, Creatinine 3.17 H, Estim Creat Clear Calc 23.85, Est GFR (MDRD) Af Amer 19 L, Est GFR (MDRD) Non-Af 16 L, BUN/Creatinine Ratio 13.9, Glucose 76, Calcium 7.5 L, Phosphorus 4.6, Albumin 2.4 L, TSH 4.35 H 01/17/19 05:30: WBC 4.6, RBC 3.12 L, Hgb 9.5 L, Hct 29.0 L, MCV 92.9, MCH 30.4, MCHC 32.8, RDW 13.6, RDW Differential 45.6 H, Plt Count 222, MPV 11.5, Immature Gran % (Auto) 0.000, Neut % (Auto) 51.5, Lymph % (Auto) 29.4, [place] % (Auto) 8.9, Eos % (Auto) 8.9 H, Baso % (Auto) 1.3 H, Absolute Neuts (auto) 2.4, Absolute Lymphs (auto) 1.35, Total Counted Not Reportable 01/17/19 05:30: PT 14.8, INR 1.2, APTT 36.5 H 01/17/19 05:30: Hemoglobin A1c 7.7 H 01/17/19 06:49: POC Glucose 77 01/17/19 11:03: POC Glucose 195 H 01/17/19 13:37: POC Glucose 248 H Current Medications Acetaminophen (Tylenol) 650 mg PO Q6H PRN PRN PRN Reason: Mild Pain (scale 0-3)/T>100.7 Albuterol Sulfate (Ventolin Aerosols) 2.5 mg INHALATION Q2H PRN PRN PRN Reason: SHORTNESS OF BREATH Aspirin (Ecotrin) 81 mg PO DAILY@0800 [facility] Last Admin: 01/17/19 08:42 Dose: Not Given Atorvastatin Calcium (Lipitor) 80 mg PO QHS [facility] Last Admin: 01/16/19 21:44 Dose: 80 mg Bisacodyl (Dulcolax) 10 mg RECTAL DAILY PRN PRN PRN Reason: Constipation Citalopram Hydrobromide (Celexa) 20 mg PO QHS [facility] Last Admin: 01/16/19 21:44 Dose: 20 mg Clonazepam (Klonopin) 0.5 mg PO Q8H PRN PRN PRN Reason: ANXIETY Last Admin: 01/15/19 17:31 Dose: 0.5 mg Dextrose (D50w Syringe) 0 gm IV X1 PRN; Protocol PRN Reason: Hypoglycemia Docusate Sodium (Colace) 200 mg PO BID PRN PRN PRN Reason: Constipation Gabapentin (Neurontin) 300 mg PO BID [facility] Last Admin: 01/17/19 08:44 Dose: 300 mg Glucagon () 1 mg IM .X1 PRN PRN Reason: Hypoglycemia Guaifenesin (Mucinex) 1,200 mg PO BID [facility] Last Admin: 01/17/19 08:44 Dose: 1,200 mg Heparin Sodium (Porcine) (Heparin Na) 5,000 unit SC Q12 [facility] Last Admin: 01/16/19 21:47 Dose: 5,000 unit Ceftriaxone Sodium (Rocephin) 1 gm in 50 mls @ 100 mls/hr IV Q24H [facility] Last Admin: 01/16/19 22:51 Dose: 100 mls/hr Insulin Glargine (Lantus (Bkc)) 10 units SC BID [facility] Last Admin: 01/17/19 08:42 Dose: Not Given Insulin Human Lispro (Humalog Kwikpen (Bkc)) 0 unit SC ACHS [facility]; Protocol Last Admin: 01/17/19 11:10 Dose: Not Given Iron Sucrose (Venofer) 100 mg IV .DIALYSIS [facility] Last Admin: 01/15/19 13:56 Dose: 100 mg Levothyroxine Sodium (Synthroid) 137 mcg PO DAILY@0600 [facility] Last Admin: 01/17/19 06:22 Dose: 137 mcg Ondansetron HCl (Zofran) 4 mg IV Q8H PRN PRN PRN Reason: Nausea Last Admin: 01/15/19 23:08 Dose: 4 mg Oxycodone HCl (Oxyir) 5 mg PO Q4H PRN PRN PRN Reason: Moderate Pain (pain scale 4-5) Last Admin: 01/15/19 23:36 Dose: 5 mg Polyethylene Glycol (Miralax) 17 gm PO DAILY [facility] Last Admin: 01/17/19 08:42 Dose: Not Given Sodium Chloride () 5 - 15 ml IV UD PRN PRN Reason: SALINE FLUSH Last Admin: 01/16/19 03:39 Dose: 10 ml Zolpidem Tartrate (Ambien (Generic)) 5 mg PO QHS PRN PRN PRN Reason: SLEEP Medical Necessity - Tobacco Use Smoking Status: Never smoker Tobacco Use: Non-smoker Assessment/Plan All Active Problems (Last Updated 12/23/18 @ 09:50 by Kraime Mcrae) Acute on chronic anemia (Acute) Anemia (Acute) History of non-ST elevation myocardial infarction (NSTEMI) (Acute) Hyperkalemia (Acute) Problem with dialysis access (Acute) DKA (diabetic ketoacidoses) (Resolved) NSTEMI (non-ST elevated myocardial infarction) (Resolved) Syncope (Resolved) 1. 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 2. Iron-deficiency anemia * stable * s/p transfusion of 2 units on 01/15 * iron 29, but ferritin elevated at 383 (if iron-deficient, should be <100) * suspect more anemia of chronic disease rather than iron-deficiency * c-scope and EGD today 3. Difficult fistula access * history of fistular stenosis * difficulty accessing on 01/15 * DW Dr. Wagner, who will see the patient in consult 4. Hyperkalemia * resolved s/p HD * monitor 5. HFpEF * compensated 6. VTE proph: SCDs, hold chemical proph given anemia. Greater than 35 minutes of which greater than 50 % of the time was coordinating care for fistula evaluation and discussing with Dr. Wagner. Code Visit Inpatient E&M: [id number] Subs Hosp L3
--- NOTE | 2019-01-17 15:29 | OP.ENDO_ITS ---
01/17/2019 No Primary Care Physician Re : Upper GI endoscopy procedure for Dee Dee Meléndez Dear Care Physician This procedure was performed on Thursday, January 17, 2019. My impressions and recommendations are as follows: Impressions : - Non-bleeding erosive gastropathy. Biopsied. - A few gastric polyps. Resected and retrieved. - The examination was otherwise normal. Recommendations : - Await pathology results. - Continue present medications. My findings are described in the full procedure note, which is enclosed. If I can be of further assistance, please feel free to contact me at Doctor phone number(s): , Work: . Sincerely, Leonardo Contreras MD 01/17/2019 3:28:51 PM This report has been signed electronically.
--- NOTE | 2019-01-17 15:32 | OP.ENDO_ITS ---
01/17/2019 No Primary Care Physician Re : Colonoscopy procedure for Dee Dee Meléndez Dear Care Physician This procedure was performed on Thursday, January 17, 2019. My impressions and recommendations are as follows: Impressions : - The entire examined colon is normal on direct and retroflexion views. - No specimens collected. Recommendations : - Repeat colonoscopy because the examination was incomplete. - Continue present medications. My findings are described in the full procedure note, which is enclosed. If I can be of further assistance, please feel free to contact me at Doctor phone number(s): , Work: . Sincerely, Leonardo Conrteras MD 01/17/2019 3:31:28 PM This report has been signed electronically.
[2019-01-17 16:06] LABS: HEPATITIS B SURFACE AG Negative (Negative); Hepatitis Be Ab Negative (Negative)
[2019-01-17] MEDS: Insulin Lispro 100 UNIT/ML INSULN.PEN SC ×2 (16:34→22:20)
[2019-01-17 16:51] LABS: Bedside Glucose 221 mg/dL (70-110)
--- NOTE | 2019-01-17 19:02 | PCM.CONS.GEN ---
Problem List (1) Problem with dialysis access Status: Acute Qualifiers: Encounter type: initial encounter Qualified Code(s): T82.898A - Other specified complication of vascular prosthetic devices, implants and grafts, initial encounter Reason for Consult Date of Consultation: 01/17/19 History of Present Illness: The patient is a 58 year old F who I have been asked to see because of difficulty in urgently accessing her left forearm transposed basilic vein to brachial artery arteriovenous hemodialysis fistula. I was asked by to see this patient during her hospitalization and electronic copy of my note will be available in the electronic medical record. I have previously created for this patient a loop left forearm transposed basilic vein to brachial artery arteriovenous hemodialysis fistula. As recently as December 16, 2018 using carbon dioxide to performed a fistulogram. In the proximal limb of the fistula she had venous stenosis which I treated with a 6 x 2 cutting balloon. The angiographic results at the completion were superb. The patient states that approximately 2 hours was required in accessing the fistula that there was difficulty in threading the needles. Apparently once accessed the fistula flowed well Past Medical History Past Medical History (Chronic Problems): Chronic Problems (Last Updated 12/23/18 @ 09:50 by Karime Mcrae) Ascites (Chronic) Nonrheumatic mitral valve regurgitation (Chronic) Atherosclerotic heart disease of [place] coronary artery without angina pectoris (Chronic) Chronic kidney disease, stage 4, severely decreased GFR (Chronic) under care of nephrology. CHF (congestive heart failure) (Chronic) Diabetes type I (Chronic) Dx : age 4 Last exacerbation : DKA : 2015 Hypoglycemic episode : 2016 ER visit : 2016 No data for review. Patient is ask to bring data to office for download. Discussed checking BG before meals and 2 hours post meal. Discussed carb counting meals and we reviewed how to carb count and also reading labels. We reviewd how to determine I/c ratios. Reviewed possibly using insulin pump in future. Is on arb. On statin. . Chronic kidney disease, stage 4, severely decreased GFR (Chronic) HTN (hypertension) (Chronic) Hyperlipidemia (Chronic) Under care of cardiology. Will need to update labs. Hypothyroidism (Chronic) Thyroid replacement d/cd although not sure why. Will need to check labs and determine why this is. Patient unable to answer. Diabetic polyneuropathy (Chronic) Asthma (Chronic) Charcot's joint of right foot (Chronic) Medical History: Medical History (Last Updated 12/23/18 @ 09:50 by Karime Mcrae) Nonrheumatic mitral valve regurgitation (Chronic) I34.0 History of non-ST elevation myocardial infarction (NSTEMI) (Acute) I25.2 Atherosclerotic heart disease of [place] coronary artery without angina pectoris (Chronic) I25.10 Diabetes type I (Chronic) Dx : age 4 Last exacerbation : DKA : 2015 Hypoglycemic episode : 2016 ER visit : 2016 No data for review. Patient is ask to bring data to office for download. Discussed checking BG before meals and 2 hours post meal. Discussed carb counting meals and we reviewed how to carb count and also reading labels. We reviewd how to determine I/c ratios. Reviewed possibly using insulin pump in future. Is on arb. On statin. . Chronic kidney disease, stage 4, severely decreased GFR (Chronic) N18.4 HTN (hypertension) (Chronic) I10 Hyperlipidemia (Chronic) E78.5 Under care of cardiology. Will need to update labs. Hypothyroidism (Chronic) E03.9 Thyroid replacement d/cd although not sure why. Will need to check labs and determine why this is. Patient unable to answer. Diabetic polyneuropathy (Chronic) E11.42 Asthma (Chronic) J45.909 Charcot's joint of right foot (Chronic) M14.671 Anemia D64.9 Anxiety and depression F41.9, F32.9 Arthritis M19.90 Bone fracture T14.8XXA Breast lump N63.0 Cataracts, bilateral H26.9 Chronic headaches R51 GI problem R19.8 H/O transfusion of whole blood Z92.89 Hives L50.9 Hormone deficiency E34.8 Hypoglycemia E16.2 Osteoporosis M81.0 Recurrent UTI N39.0 Seasonal allergies J30.2 Seizure R56.9 Vascular disease I99.9 Vision problem H54.7 Vitamin deficiency E56.9 abnormal calcium level Aortic valve disorder (Inactive) I35.9 Pneumonia (Inactive) J18.9 Allergies prednisone Allergy (Unknown, Verified 12/23/18 09:48) Unknown prochlorperazine edisylate [From Compazine] Adverse Reaction (Verified 12/23/18 09:48) Other i wig out prochlorperazine maleate [From Compazine] Adverse Reaction (Verified 12/23/18 09:48) Other Home Medications: Ambulatory Orders Medication Instructions Recorded Clonazepam [Klonopin] 0.5 mg PO Q8H PRN PRN 12/17/17 gabapentin 300 mg capsule 300 mg PO BID cap 12/18/17 aspirin 81 mg tablet,delayed 81 mg PO DAILY 04/08/18 release Insulin Glulisine [Apidra SoloStar See Rx Instructions SQ DAILY 11/22/18 U-100 Insulin] losartan 25 mg tablet 25 mg PO DAILY 12/14/18 Atorvastatin Calcium [Lipitor] 80 mg PO QHS 01/14/19 Citalopram Hydrobromide 20 mg PO QHS 01/14/19 [Citalopram HBr] Docusate Sodium [Colace] 100 mg PO DAILY 01/14/19 Insulin Detemir [Levemir FlexPen] 8 units SQ BID 01/14/19 Levothyroxine [Synthroid] 137 mcg PO DAILY 01/14/19 Surgical History: Surgical History (Last Updated 12/23/18 @ 09:51 by Karime Mcrae) history fistulagram Onset Date: ~12/16/18 left arm fistula creation 08/07/17 H/O dilation and curettage Z98.890 H/O tubal ligation Z98.51 History of amputation of right great toe Z98.890, Z89.411 History of hand surgery Z98.890 Hx of cataract surgery Z98.49 Wrist fracture S62.109A raquel removal r leg tibula/fibula surgery Surgical History: dilatation and curettage, - - Tubal Ligation 1985; Dilation and currettage 1984, 2006; Right knee Tib fx with hardware ;LUE Fistula, currently maturing. Smoking Status: Never smoker Tobacco Use: Non-smoker - *Family History Maternal Family History: Family History (Last Reviewed 12/23/18 @ 09:49 by Karime Mcrae) Mother Arthritis Cancer Hormone deficiency Thyroid disorder Osteoporosis Skin cancer Father Arthritis Diabetes Heart disease Hypertension High cholesterol CVA (cerebral vascular accident) History Items: Cancer - lung, melanoma Paternal Family History: Family History (Last Reviewed 12/23/18 @ 09:49 by Karime Mcrae) Mother Arthritis Cancer Hormone deficiency Thyroid disorder Osteoporosis Skin cancer Father Arthritis Diabetes Heart disease Hypertension High cholesterol CVA (cerebral vascular accident) History Items: Diabetes Patient Problems: Active and Suspected Problems (Last Updated 12/23/18 @ 09:50 by Karime Mcrae) Acute on chronic anemia (Acute) Anemia (Acute) - Physical Exam Extremities: - - The patient has a loop transposed left proximal forearm basilic vein to brachial artery AV fistula. There is an absolutely wonderful pulse and thrill and bruit. It would appear that the accessing sites are absolutely at the apex portion of the fistula where it is looping. Vital Signs Temp Pulse Resp BP Pulse Ox 97.7 F L 88 16 167/80 H 95 01/17/19 16:19 01/17/19 16:19 01/17/19 16:19 01/17/19 16:19 01/17/19 16:19 Oxygen Flow Rate (L/min) 2 Oxygen Delivery Method Room Air Weight: 169 lb 4.8 oz Body Mass Index (BMI) 34.2 Finger Stick Blood Glucose 179 Intake and Output for Last 24 Hours 01/15/19 01/16/19 01/17/19 23:59 23:59 23:59 Intake Total 1680 / 1680 5707 / 5707 840 / 840 Output Total 6000 / 6000 240 / 240 Balance -4320 / -4320 5467 / 5467 840 / 840 Microbiology Past 72 Hours 01/16/19 05:55 Streptococcus pneumoniae Antigen (M - Final Urine Catheter - [place] 01/16/19 05:55 Legionella Antigen - Final Interface Orders 01/15/19 20:40 Stool Occult Blood (EDIS) - Final Stool 01/14/19 22:40 Respiratory Panel (PCR) - Final Mucosa - Nasopharyngeal Laboratory Tests Past 24 Hrs 01/17/19 01/17/19 01/17/19 01:25 05:30 05:30 WBC 4.6 RBC 3.12 L Hgb 9.5 L Hct 29.0 L MCV 92.9 MCH 30.4 MCHC 32.8 RDW 13.6 RDW Differential 45.6 H Plt Count 222 MPV 11.5 Immature Gran % (Auto) 0.000 Neut % (Auto) 51.5 Lymph % (Auto) 29.4 [place] % (Auto) 8.9 Eos % (Auto) 8.9 H Baso % (Auto) 1.3 H Absolute Neuts (auto) 2.4 Absolute Lymphs (auto) 1.35 Total Counted Not Reportable PT INR APTT Sodium 134 L 136 Potassium 4.4 3.6 Chloride 100 101 Carbon Dioxide 28.0 26.0 Anion Gap 6 BUN 46 H 44 H Creatinine 3.27 H 3.17 H Estim Creat Clear Calc 23.12 23.85 Est GFR (MDRD) Af Amer 19 L 19 L Est GFR (MDRD) Non-Af 15 L 16 L BUN/Creatinine Ratio 14.1 13.9 Glucose 95 76 Hemoglobin A1c Calcium 7.5 L 7.5 L Phosphorus 4.6 Albumin 2.4 L TSH 4.35 H 01/17/19 01/17/19 05:30 05:30 WBC RBC Hgb Hct MCV MCH MCHC RDW RDW Differential Plt Count MPV Immature Gran % (Auto) Neut % (Auto) Lymph % (Auto) [place] % (Auto) Eos % (Auto) Baso % (Auto) Absolute Neuts (auto) Absolute Lymphs (auto) Total Counted PT 14.8 INR 1.2 APTT 36.5 H Sodium Potassium Chloride Carbon Dioxide Anion Gap BUN Creatinine Estim Creat Clear Calc Est GFR (MDRD) Af Amer Est GFR (MDRD) Non-Af BUN/Creatinine Ratio Glucose Hemoglobin A1c 7.7 H Calcium Phosphorus Albumin TSH POC Glucose 01/17/19 01/17/19 01/17/19 16:34 13:37 11:03 POC Glucose 221 H 248 H 195 H 01/17/19 01/16/19 06:49 21:37 POC Glucose 77 73 Assessment/Plan All Active Problems (Last Updated 12/23/18 @ 09:50 by Karime Mcrae) Acute on chronic anemia (Acute) Anemia (Acute) History of non-ST elevation myocardial infarction (NSTEMI) (Acute) Hyperkalemia (Acute) Problem with dialysis access (Acute) DKA (diabetic ketoacidoses) (Resolved) NSTEMI (non-ST elevated myocardial infarction) (Resolved) Syncope (Resolved) I believe that this left forearm fistula is functioning very well. I suspect that the accessing issues were secondary to the accessing absolutely at the apex of the loop. The fistula is a loop basilic vein to brachial artery AV fistula. In the mid volar forearm is the proximal portion of the fistula which is then anastomosed to the brachial artery. The fistula then loops in the forearm heading more toward the ulnar aspect of the proximal forearm as the basilic vein resumes its normal course and positioning. Perhaps ultrasound inspection during accessing would facilitate the positioning and imaging of the fistula to better facilitate needle access and this would be my recommendation. I do not believe that she requires another fistulogram at this time. I appreciate the opportunity of continue to assist with her surgical care Aguila Wagner M.D., F.A.C.S.
[2019-01-17] MEDS: Citalopram 20 MG Tablet PO (22:18)
[2019-01-17] MEDS: Atorvastatin Calcium 80 MG Tablet PO (22:18)
[2019-01-17] MEDS: Ceftriaxone 1 GM/50 ML BAG IV (22:23)
[2019-01-17] MEDS: 0.9% NaCl Peripheral Flush Adult/Peds IV (22:27)
[2019-01-17 22:31] LABS: Bedside Glucose 402 mg/dL (70-110)
[2019-01-18] VITALS (11 sets, daily range): BP systolic 134–142; BP diastolic 62–72; PULSE 77–85; RESP 16–18; TEMP 36.7–36.9; O2SAT 94–97
[2019-01-18] MEDS: Levothyroxine 137 MCG Tablet PO (05:35)
[2019-01-18 06:32] LABS: Absolute Lymphocyte Count 1.07 X10^3/ul (0.83-4.51); Absolute Neutrophil Count 2.9 X10^3/uL (2.0-7.7); Basophil# 0.04 X10^3/uL; Basophil% 0.8 % (0-1); Eosinophil# 0.37 X10^3/uL; Eosinophils% 7.6 % (0-5); Hematocrit 29.3 % (37-47); Hemoglobin 9.8 g/dl (12.0-15.0); Lymphocyte # 1.07 X10^3/ul (4.0); Lymphocyte % 21.8 % (19-41); Mean Corp Hgb Conc 33.4 g/gl (32-36); Mean Corpuscular Hgb 30.9 pg (27.0-32.0); Mean Corpuscular Volume 92.4 fL (81-99); Mean Platelet Vol. 11.4 fl (6.2-12.0); Monocyte# 0.53 X10^3/uL; Monocyte% 10.8 % (0-10); Neutrophil # 2.88 X10^3/uL (2.7-7.7); Neutrophil % 58.8 % (47-70); Platelet Count 218 K/mm3 (150-450); RBC Distribution Width CV 12.9 % (11.6-14.6); RBC Distribution Width SD 43.8 fl (35.1-43.9); Red Blood Count 3.17 M/mm3 (4.2-5.4); White Blood Count 4.9 K/mm3 (4.4-11.0)
[2019-01-18 06:37] LABS: POSITIVE COUNT NO; POSITIVE DIFFERENTIAL NO; POSITIVE MORPHOLOGY NO
[2019-01-18 06:51] LABS: Bedside Glucose 331 mg/dL (70-110)
[2019-01-18 07:00] LABS: Albumin, Serum 2.4 g/dL (3.2-5.0); BUN 46 mg/dL (7-18); BUN/Creat Ratio 13.6 RATIO (10-20); Calcium,Total 7.8 mg/dL (8.5-10.1); Chloride 101 mmol/L (98-107); Creatinine, Serum 3.39 mg/dL (0.55-1.02); EST Glomerular Filtration Rate 15 mL/min (>60); Est Glom Filt Rate - Afr Amer 18 mL/min (>60); Estimated Creatinine Clearance 22.42 ml/min; Glucose 324 mg/dL (74-106); Phosphorus 4.6 mg/dL (2.5-4.9); Potassium 3.8 mmol/L (3.5-5.1); Sodium Level 133 mmol/L (136-145)
[2019-01-18] MEDS: Insulin Lispro 100 UNIT/ML INSULN.PEN SC ×2 (08:43→11:06)
[2019-01-18] MEDS: Aspirin E.C. 81 MG Tablet PO (08:44)
[2019-01-18] MEDS: Gabapentin 300 MG Capsule PO ×2 (08:44→21:59)
[2019-01-18] MEDS: guaiFENesin 1,200 MG Tablet 1200 MG PO ×2 (08:45→21:59)
--- NOTE | 2019-01-18 08:47 | PN_ITS ---
Subjective: Patient transferred out of the intensive care unit previously. Patient was not able to be evaluated yesterday secondary to an EGD and colonoscopy. Patient overall feels subjectively unchanged compared to previous. Patient has remained hemodynamically stable on room air. Objective: Colonoscopy was within normal limits yesterday. EGD did show erosive gastropathy. General: Alert, Oriented x3, Cooperative, No apparent distress, - - Appears stated age. Speaking in full sentences. HEENT: Atraumatic, PERRLA, EOMI, Normocephalic, - - No scleral icterus or injection noted. Oral: Moist Mucosa, No Gingival or Mucosal Lesions/ Ulcerations Neck: Supple, No JVD, No Nodes, Trachea Midline Lungs: No rhonchi, No wheeze, No rales, Diminished, - - Symmetric expansion. No dullness to percussion. Cardiovascular: Regular rate, Regular Rhythm, Normal S1, Normal S2, No murmurs, No rub noted, No Gallop Abdomen: Bowel Sounds Present, Soft, Non Tender, Non-Distended, Obese Extremities: No clubbing, No cyanosis, Edema Skin: No rashes, No breakdown Musculoskeletal: No Tenderness to Palpation of Joints or Extremities Lymphatic: No Cervical, Supraclavicular, or Inguinal Adenopathy Neurological: Cranial nerves II-XII grossly intact, Neuro grossly intact, Motor Exam 5/5 strength throughout Psych/Mental Status: Alert and oriented to time, place, person, mood and affect Vital Signs Temp Pulse Resp BP Pulse Ox 36.9 C 78 18 140/67 H 94 01/18/19 02:58 01/18/19 07:00 01/18/19 02:58 01/18/19 02:58 01/18/19 06:24 Oxygen Flow Rate (L/min) 2 Oxygen Delivery Method Room Air Weight: 78.5 kg Body Mass Index (BMI) 34.2 Finger Stick Blood Glucose 179 Intake and Output for Last 24 Hours 01/16/19 01/17/19 01/18/19 23:59 23:59 23:59 Intake Total 5707 / 5707 840 / 840 315 / 315 Output Total 240 / 240 Balance 5467 / 5467 840 / 840 315 / 315 Labs (Last 48 Hours) 01/16/19 01/16/19 01/16/19 11:40 16:47 21:37 WBC RBC Hgb Hct MCV MCH MCHC RDW RDW Differential Plt Count MPV Immature Gran % (Auto) Neut % (Auto) Lymph % (Auto) [place] % (Auto) Eos % (Auto) Baso % (Auto) Absolute Neuts (auto) Absolute Lymphs (auto) Total Counted PT INR APTT Sodium Potassium Chloride Carbon Dioxide Anion Gap BUN Creatinine Estim Creat Clear Calc Est GFR (MDRD) Af Amer Est GFR (MDRD) Non-Af BUN/Creatinine Ratio Glucose Hemoglobin A1c Calcium Phosphorus Albumin TSH POC Glucose 323 H 88 73 01/17/19 01/17/19 01/17/19 01:25 05:30 05:30 WBC 4.6 RBC 3.12 L Hgb 9.5 L Hct 29.0 L MCV 92.9 MCH 30.4 MCHC 32.8 RDW 13.6 RDW Differential 45.6 H Plt Count 222 MPV 11.5 Immature Gran % (Auto) 0.000 Neut % (Auto) 51.5 Lymph % (Auto) 29.4 [place] % (Auto) 8.9 Eos % (Auto) 8.9 H Baso % (Auto) 1.3 H Absolute Neuts (auto) 2.4 Absolute Lymphs (auto) 1.35 Total Counted Not Reportable PT INR APTT Sodium 134 L 136 Potassium 4.4 3.6 Chloride 100 101 Carbon Dioxide 28.0 26.0 Anion Gap 6 BUN 46 H 44 H Creatinine 3.27 H 3.17 H Estim Creat Clear Calc 23.12 23.85 Est GFR (MDRD) Af Amer 19 L 19 L Est GFR (MDRD) Non-Af 15 L 16 L BUN/Creatinine Ratio 14.1 13.9 Glucose 95 76 Hemoglobin A1c Calcium 7.5 L 7.5 L Phosphorus 4.6 Albumin 2.4 L TSH 4.35 H POC Glucose 01/17/19 01/17/19 01/17/19 05:30 05:30 06:49 WBC RBC Hgb Hct MCV MCH MCHC RDW RDW Differential Plt Count MPV Immature Gran % (Auto) Neut % (Auto) Lymph % (Auto) [place] % (Auto) Eos % (Auto) Baso % (Auto) Absolute Neuts (auto) Absolute Lymphs (auto) Total Counted PT 14.8 INR 1.2 APTT 36.5 H Sodium Potassium Chloride Carbon Dioxide Anion Gap BUN Creatinine Estim Creat Clear Calc Est GFR (MDRD) Af Amer Est GFR (MDRD) Non-Af BUN/Creatinine Ratio Glucose Hemoglobin A1c 7.7 H Calcium Phosphorus Albumin TSH POC Glucose 77 01/17/19 01/17/19 01/17/19 11:03 13:37 16:34 WBC RBC Hgb Hct MCV MCH MCHC RDW RDW Differential Plt Count MPV Immature Gran % (Auto) Neut % (Auto) Lymph % (Auto) [place] % (Auto) Eos % (Auto) Baso % (Auto) Absolute Neuts (auto) Absolute Lymphs (auto) Total Counted PT INR APTT Sodium Potassium Chloride Carbon Dioxide Anion Gap BUN Creatinine Estim Creat Clear Calc Est GFR (MDRD) Af Amer Est GFR (MDRD) Non-Af BUN/Creatinine Ratio Glucose Hemoglobin A1c Calcium Phosphorus Albumin TSH POC Glucose 195 H 248 H 221 H 01/17/19 01/18/19 01/18/19 22:04 05:57 05:57 WBC 4.9 RBC 3.17 L Hgb 9.8 L Hct 29.3 L MCV 92.4 MCH 30.9 MCHC 33.4 RDW 12.9 RDW Differential 43.8 Plt Count 218 MPV 11.4 Immature Gran % (Auto) 0.200 Neut % (Auto) 58.8 Lymph % (Auto) 21.8 [place] % (Auto) 10.8 H Eos % (Auto) 7.6 H Baso % (Auto) 0.8 Absolute Neuts (auto) 2.9 Absolute Lymphs (auto) 1.07 Total Counted Not Reportable PT INR APTT Sodium 133 L Potassium 3.8 Chloride 101 Carbon Dioxide 24.0 Anion Gap BUN 46 H Creatinine 3.39 H Estim Creat Clear Calc 22.42 Est GFR (MDRD) Af Amer 18 L Est GFR (MDRD) Non-Af 15 L BUN/Creatinine Ratio 13.6 Glucose 324 H Hemoglobin A1c Calcium 7.8 L Phosphorus 4.6 Albumin 2.4 L TSH POC Glucose 402 H 01/18/19 06:46 WBC RBC Hgb Hct MCV MCH MCHC RDW RDW Differential Plt Count MPV Immature Gran % (Auto) Neut % (Auto) Lymph % (Auto) [place] % (Auto) Eos % (Auto) Baso % (Auto) Absolute Neuts (auto) Absolute Lymphs (auto) Total Counted PT INR APTT Sodium Potassium Chloride Carbon Dioxide Anion Gap BUN Creatinine Estim Creat Clear Calc Est GFR (MDRD) Af Amer Est GFR (MDRD) Non-Af BUN/Creatinine Ratio Glucose Hemoglobin A1c Calcium Phosphorus Albumin TSH POC Glucose 331 H Microbiology 01/16/19 05:55 Urine Catheter - [place] Streptococcus pneumoniae Antigen (M - Final 01/16/19 05:55 Interface Orders Legionella Antigen - Final Medical Necessity - Tobacco Use Smoking Status: Never smoker Tobacco Use: Non-smoker Assessment/Plan All Active Problems (Last Updated 12/23/18 @ 09:50 by Karime Mcrae) Acute on chronic anemia (Acute) Anemia (Acute) History of non-ST elevation myocardial infarction (NSTEMI) (Acute) Hyperkalemia (Acute) Problem with dialysis access (Acute) DKA (diabetic ketoacidoses) (Resolved) NSTEMI (non-ST elevated myocardial infarction) (Resolved) Syncope (Resolved) RECOMMENDATIONS: 1. Continue PPI 2. Continue hemodialysis support per nephrology recommendations. 3. Acute oximetry prior to discharge. Encourage incentive spirometer use. 4. Monitor H&H daily. Transfuse for hemoglobin less than 7 g/dL. 5. Continue antibiotics per hospitalist. 6. Emo dynamically stable on room air. Will sign off from a critical care perspective. IMPRESSIONS: 1. Acute hypoxemic respiratory insufficiency Clinical concern for underlying pulmonary infectious process versus decompensated heart failure. Repeat echocardiogram revealed continued evidence of diastolic dysfunction and pulmonary hypertension. The patient has responded favorably to dialysis and volume removal. Continue antibiotics per hospitalist. Patient should have a walking oximetry prior to discharge. Patient can be seen as an outpatient if there are concerns for baseline respiratory complaints. Patient is currently hemodynamically stable on room air. Will sign off from a critical care perspective. 2. Normocytic anemia secondary to erosive gastropathy The patient does appear to have a component of iron deficiency anemia, for which she received 2 units of packed red blood cells on January 15. She did respond appropriately. Surgery currently following. Patient can likely continue with PPI. Continue to monitor H&H daily. Transfuse if hemoglobin is less than 7 g/dL. 3. Acute on chronic kidney disease/hyperkalemia/non-gap metabolic acidosis The patient has known CKD stage IV due to diabetic nephropathy and currently follows with Dr. Pineda. Continue hemodialysis support per nephrology recommendations. 4. History of heart failure with preserved ejection fraction Continue volume optimization as tolerated. 5. Anxiety/depression/hypothyroidism/hyperlipidemia/hypertension/diabetes mellitus Complicates care, management, recovery and prognosis. Okay to continue home medications from my perspective. Code Visit Inpatient E&M: 75732 Subs Hosp L2
--- NOTE | 2019-01-18 09:27 | PCM.PROGNOTE ---
Patient Problems: Active and Suspected Problems (Last Updated 12/23/18 @ 09:50 by Karime Mcrae) Acute on chronic anemia (Acute) Anemia (Acute) Subjective: No shortness of breath no chest pain but feels she gained some weight and she feels puffy - Physical Exam General: Alert, Oriented x3, Cooperative HEENT: Atraumatic, PERRLA, EOMI, Normocephalic Neck: Supple, No JVD, Negative Carotid Bruits Lungs: Clear to auscultation, Normal air movement Cardiovascular: Regular rate, No murmurs Abdomen: Bowel Sounds Present, Soft, Non Tender, - - Obese Extremities: - - Lower extremity trace edema Skin: No rashes, No breakdown Musculoskeletal: No Tenderness to Palpation of Joints or Extremities Neurological: Cranial nerves II-XII grossly intact Psych/Mental Status: Normal Affect, Appropriate Vital Signs Temp Pulse Resp BP Pulse Ox 98.2 F 78 16 141/72 H 95 01/18/19 08:58 01/18/19 08:58 01/18/19 08:58 01/18/19 08:58 01/18/19 08:58 Oxygen Flow Rate (L/min) 2 Oxygen Delivery Method Room Air Weight: 78.5 kg Body Mass Index (BMI) 34.2 Finger Stick Blood Glucose 179 Intake and Output for Last 24 Hours 01/16/19 01/17/19 01/18/19 23:59 23:59 23:59 Intake Total 5707 / 5707 840 / 840 315 / 315 Output Total 240 / 240 Balance 5467 / 5467 840 / 840 315 / 315 Microbiology Past 72 Hours 01/16/19 05:55 Streptococcus pneumoniae Antigen (M - Final Urine Catheter - [place] 01/16/19 05:55 Legionella Antigen - Final Interface Orders 01/15/19 20:40 Stool Occult Blood (EDIS) - Final Stool 01/14/19 22:40 Respiratory Panel (PCR) - Final Mucosa - Nasopharyngeal Laboratory Tests Past 24 Hrs 01/18/19 01/18/19 05:57 05:57 WBC 4.9 RBC 3.17 L Hgb 9.8 L Hct 29.3 L MCV 92.4 MCH 30.9 MCHC 33.4 RDW 12.9 RDW Differential 43.8 Plt Count 218 MPV 11.4 Immature Gran % (Auto) 0.200 Neut % (Auto) 58.8 Lymph % (Auto) 21.8 [place] % (Auto) 10.8 H Eos % (Auto) 7.6 H Baso % (Auto) 0.8 Absolute Neuts (auto) 2.9 Absolute Lymphs (auto) 1.07 Total Counted Not Reportable Sodium 133 L Potassium 3.8 Chloride 101 Carbon Dioxide 24.0 BUN 46 H Creatinine 3.39 H Estim Creat Clear Calc 22.42 Est GFR (MDRD) Af Amer 18 L Est GFR (MDRD) Non-Af 15 L BUN/Creatinine Ratio 13.6 Glucose 324 H Calcium 7.8 L Phosphorus 4.6 Albumin 2.4 L POC Glucose 01/18/19 01/17/19 01/17/19 06:46 22:04 16:34 POC Glucose 331 H 402 H 221 H 01/17/19 01/17/19 13:37 11:03 POC Glucose 248 H 195 H Medical Necessity - Tobacco Use Smoking Status: Never smoker Tobacco Use: Non-smoker Assessment/Plan All Active Problems (Last Updated 12/23/18 @ 09:50 by Karime Mcrae) Acute on chronic anemia (Acute) Anemia (Acute) History of non-ST elevation myocardial infarction (NSTEMI) (Acute) Hyperkalemia (Acute) Problem with dialysis access (Acute) DKA (diabetic ketoacidoses) (Resolved) NSTEMI (non-ST elevated myocardial infarction) (Resolved) Syncope (Resolved) JAYLIN on CKD stage 4 with underlying diabetic nephropathy. Baseline creatinine mid 2's Had emergent HD on 01/15 for K 7.4.Scr stable for 4 days now Seems to stabilize hold NEURO UROLOGIST for now monitor Scr lytes.Will resume lasix for hypervolemia so likely she will end up on dialysis in a few days Edema resume Lasix 80 mg p.o. twice daily Hyponatremia fluid restriction resume Lasix Malfunction AVF s/p fistulogram with angioplasty, poor bruit and thrill. Reviewed vascular surgeon Dr. Wagner note. Difficult cannulation on 01/15 Acute hyperkalemia requiring urgent dialysis resolved Anemia received iron with dialysis monitor will need more iron bp check outliers manually if persistently high will start meds Will check bmp in am Thursday and Thursday and Her recovery rn dr. Pineda will resume care on
--- NOTE | 2019-01-18 09:31 | PN_ITS ---
Patient Problems: Active and Suspected Problems (Last Updated 12/23/18 @ 09:50 by Karime Mcrae) Acute on chronic anemia (Acute) Anemia (Acute) Subjective: No shortness of breath no chest pain but feels she gained some weight and she feels puffy - Physical Exam General: Alert, Oriented x3, Cooperative HEENT: Atraumatic, PERRLA, EOMI, Normocephalic Neck: Supple, No JVD, Negative Carotid Bruits Lungs: Clear to auscultation, Normal air movement Cardiovascular: Regular rate, No murmurs Abdomen: Bowel Sounds Present, Soft, Non Tender, - - Obese Extremities: - - Lower extremity trace edema Skin: No rashes, No breakdown Musculoskeletal: No Tenderness to Palpation of Joints or Extremities Neurological: Cranial nerves II-XII grossly intact Psych/Mental Status: Normal Affect, Appropriate Vital Signs Temp Pulse Resp BP Pulse Ox 98.2 F 78 16 141/72 H 95 01/18/19 08:58 01/18/19 08:58 01/18/19 08:58 01/18/19 08:58 01/18/19 08:58 Oxygen Flow Rate (L/min) 2 Oxygen Delivery Method Room Air Weight: 78.5 kg Body Mass Index (BMI) 34.2 Finger Stick Blood Glucose 179 Intake and Output for Last 24 Hours 01/16/19 01/17/19 01/18/19 23:59 23:59 23:59 Intake Total 5707 / 5707 840 / 840 315 / 315 Output Total 240 / 240 Balance 5467 / 5467 840 / 840 315 / 315 Microbiology Past 72 Hours 01/16/19 05:55 Streptococcus pneumoniae Antigen (M - Final Urine Catheter - [place] 01/16/19 05:55 Legionella Antigen - Final Interface Orders 01/15/19 20:40 Stool Occult Blood (EDIS) - Final Stool 01/14/19 22:40 Respiratory Panel (PCR) - Final Mucosa - Nasopharyngeal Laboratory Tests Past 24 Hrs 01/18/19 01/18/19 05:57 05:57 WBC 4.9 RBC 3.17 L Hgb 9.8 L Hct 29.3 L MCV 92.4 MCH 30.9 MCHC 33.4 RDW 12.9 RDW Differential 43.8 Plt Count 218 MPV 11.4 Immature Gran % (Auto) 0.200 Neut % (Auto) 58.8 Lymph % (Auto) 21.8 [place] % (Auto) 10.8 H Eos % (Auto) 7.6 H Baso % (Auto) 0.8 Absolute Neuts (auto) 2.9 Absolute Lymphs (auto) 1.07 Total Counted Not Reportable Sodium 133 L Potassium 3.8 Chloride 101 Carbon Dioxide 24.0 BUN 46 H Creatinine 3.39 H Estim Creat Clear Calc 22.42 Est GFR (MDRD) Af Amer 18 L Est GFR (MDRD) Non-Af 15 L BUN/Creatinine Ratio 13.6 Glucose 324 H Calcium 7.8 L Phosphorus 4.6 Albumin 2.4 L POC Glucose 01/18/19 01/17/19 01/17/19 06:46 22:04 16:34 POC Glucose 331 H 402 H 221 H 01/17/19 01/17/19 13:37 11:03 POC Glucose 248 H 195 H Medical Necessity - Tobacco Use Smoking Status: Never smoker Tobacco Use: Non-smoker Assessment/Plan All Active Problems (Last Updated 12/23/18 @ 09:50 by Karime Mcrae) Acute on chronic anemia (Acute) Anemia (Acute) History of non-ST elevation myocardial infarction (NSTEMI) (Acute) Hyperkalemia (Acute) Problem with dialysis access (Acute) DKA (diabetic ketoacidoses) (Resolved) NSTEMI (non-ST elevated myocardial infarction) (Resolved) Syncope (Resolved) JAYLIN on CKD stage 4 with underlying diabetic nephropathy. Baseline creatinine mid 2's Had emergent HD on 01/15 for K 7.4.Scr stable for 4 days now Seems to stabilize hold COURT C[employer] for now monitor Scr lytes.Will resume lasix for hypervolemia so likely she will end up on dialysis in a few days Edema resume Lasix 80 mg p.o. twice daily Hyponatremia fluid restriction resume Lasix Malfunction AVF s/p fistulogram with angioplasty, poor bruit and thrill. Reviewed vascular surgeon Dr. Wagner note. Difficult cannulation on 01/15 Acute hyperkalemia requiring urgent dialysis resolved Anemia received iron with dialysis monitor will need more iron bp check outliers manually if persistently high will start meds Will check bmp in am Thursday and Thursday and Her leasing agent dr. Pineda will resume care on
[2019-01-18 10:26] LABS: Magnesium 2.1 mg/dL (1.6-2.6)
[2019-01-18] MEDS: Furosemide 80 MG Tablet PO ×2 (11:06→17:04)
[2019-01-18 11:10] LABS: Bedside Glucose 307 mg/dL (70-110)
[2019-01-18 12:23] LABS: Hepatitis B Core Ab Total Negative (Negative)
--- NOTE | 2019-01-18 13:47 | PCM.PN.HOSP ---
Patient Problems: Active and Suspected Problems (Last Updated 12/23/18 @ 09:50 by Karime Mcrae) Acute on chronic anemia (Acute) Anemia (Acute) Subjective: increased lower extremity edema Vitals/I&O's: Vital Signs Temp Pulse Resp BP Pulse Ox 36.8 C 81 16 141/72 H 95 01/18/19 08:58 01/18/19 11:00 01/18/19 08:58 01/18/19 08:58 01/18/19 08:58 Oxygen Flow Rate (L/min) 2 Oxygen Delivery Method Room Air Weight: 78.5 kg Body Mass Index (BMI) 34.2 Finger Stick Blood Glucose 179 Intake and Output for Last 24 Hours 01/16/19 01/17/19 01/18/19 23:59 23:59 23:59 Intake Total 5707 / 5707 840 / 840 315 / 315 Output Total 240 / 240 Balance 5467 / 5467 840 / 840 315 / 315 General: Alert, No apparent distress HEENT: Atraumatic Neck: No Nodes, Thyroid Normal Size and Texture Lungs: Clear to auscultation, Normal air movement Cardiovascular: Regular rate, Regular Rhythm, Normal S1, Normal S2 Abdomen: Bowel Sounds Present, Soft, Non Tender, Non-Distended, No Hepato-splenomegaly Extremities: No Calf Tenderness, Edema Skin: No rashes, No breakdown Musculoskeletal: No Muscle Wasting Psych/Mental Status: Normal Affect Microbiology Past 72 Hours 01/16/19 05:55 Urine Catheter - [place] Streptococcus pneumoniae Antigen (M - Final 01/16/19 05:55 Interface Orders Legionella Antigen - Final 01/15/19 20:40 Stool Stool Occult Blood (EDIS) - Final 01/14/19 22:40 Mucosa - Nasopharyngeal Respiratory Panel (PCR) - Final Laboratory Results 01/15/19 13:30: Hep Bs Antigen Negative, Hep B Core Total Ab Negative, Hepatitis Be Antibody Negative 01/17/19 13:37: POC Glucose 248 H 01/17/19 16:34: POC Glucose 221 H 01/17/19 22:04: POC Glucose 402 H 01/18/19 05:57: Sodium 133 L, Potassium 3.8, Chloride 101, Carbon Dioxide 24.0, BUN 46 H, Creatinine 3.39 H, Estim Creat Clear Calc 22.42, Est GFR (MDRD) Af Amer 18 L, Est GFR (MDRD) Non-Af 15 L, BUN/Creatinine Ratio 13.6, Glucose 324 H, Calcium 7.8 L, Phosphorus 4.6, Albumin 2.4 L 01/18/19 05:57: WBC 4.9, RBC 3.17 L, Hgb 9.8 L, Hct 29.3 L, MCV 92.4, MCH 30.9, MCHC 33.4, RDW 12.9, RDW Differential 43.8, Plt Count 218, MPV 11.4, Immature Gran % (Auto) 0.200, Neut % (Auto) 58.8, Lymph % (Auto) 21.8, [place] % (Auto) 10.8 H, Eos % (Auto) 7.6 H, Baso % (Auto) 0.8, Absolute Neuts (auto) 2.9, Absolute Lymphs (auto) 1.07, Total Counted Not Reportable 01/18/19 05:57: Magnesium 2.1 01/18/19 06:46: POC Glucose 331 H 01/18/19 11:05: POC Glucose 307 H Current Medications Acetaminophen (Tylenol) 650 mg PO Q6H PRN PRN PRN Reason: Mild Pain (scale 0-3)/T>100.7 Albuterol Sulfate (Ventolin Aerosols) 2.5 mg INHALATION Q2H PRN PRN PRN Reason: SHORTNESS OF BREATH Aspirin (Ecotrin) 81 mg PO DAILY@0800 [facility] Last Admin: 01/18/19 08:44 Dose: 81 mg Atorvastatin Calcium (Lipitor) 80 mg PO QHS [facility] Last Admin: 01/17/19 22:18 Dose: 80 mg Bisacodyl (Dulcolax) 10 mg RECTAL DAILY PRN PRN PRN Reason: Constipation Citalopram Hydrobromide (Celexa) 20 mg PO QHS [facility] Last Admin: 01/17/19 22:18 Dose: 20 mg Clonazepam (Klonopin) 0.5 mg PO Q8H PRN PRN PRN Reason: ANXIETY Last Admin: 01/15/19 17:31 Dose: 0.5 mg Dextrose (D50w Syringe) 0 gm IV X1 PRN; Protocol PRN Reason: Hypoglycemia Docusate Sodium (Colace) 200 mg PO BID PRN PRN PRN Reason: Constipation Furosemide (Lasix) 80 mg PO BID@1000,1800 [facility] Last Admin: 01/18/19 11:06 Dose: 80 mg Gabapentin (Neurontin) 300 mg PO BID [facility] Last Admin: 01/18/19 08:44 Dose: 300 mg Glucagon () 1 mg IM .X1 PRN PRN Reason: Hypoglycemia Guaifenesin (Mucinex) 1,200 mg PO BID [facility] Last Admin: 01/18/19 08:45 Dose: 1,200 mg Ceftriaxone Sodium (Rocephin) 1 gm in 50 mls @ 100 mls/hr IV Q24H [facility] Last Admin: 01/17/19 22:23 Dose: 100 mls/hr Insulin Glargine (Lantus (Bk)) 10 units SC BID [facility] Last Admin: 01/18/19 08:43 Dose: 10 u Insulin Human Lispro (Humalog Kwikpen (Bk)) 0 unit SC ACHS [facility]; Protocol Last Admin: 01/18/19 11:06 Dose: 6 u Iron Sucrose (Venofer) 100 mg IV .DIALYSIS [facility] Last Admin: 01/15/19 13:56 Dose: 100 mg Levothyroxine Sodium (Synthroid) 137 mcg PO DAILY@0600 [facility] Last Admin: 01/18/19 05:35 Dose: 137 mcg Ondansetron HCl (Zofran) 4 mg IV Q8H PRN PRN PRN Reason: Nausea Last Admin: 01/15/19 23:08 Dose: 4 mg Oxycodone HCl (Oxyir) 5 mg PO Q4H PRN PRN PRN Reason: Moderate Pain (pain scale 4-5) Last Admin: 01/15/19 23:36 Dose: 5 mg Polyethylene Glycol (Miralax) 17 gm PO DAILY [facility] Last Admin: 01/18/19 08:44 Dose: Not Given Sodium Chloride () 5 - 15 ml IV UD PRN PRN Reason: SALINE FLUSH Last Admin: 01/17/19 22:27 Dose: 8 ml Zolpidem Tartrate (Ambien (Generic)) 5 mg PO QHS PRN PRN PRN Reason: SLEEP Medical Necessity - Tobacco Use Smoking Status: Never smoker Tobacco Use: Non-smoker Assessment/Plan All Active Problems (Last Updated 12/23/18 @ 09:50 by Karime Mcrae) Acute on chronic anemia (Acute) Anemia (Acute) History of non-ST elevation myocardial infarction (NSTEMI) (Acute) Hyperkalemia (Acute) Problem with dialysis access (Acute) DKA (diabetic ketoacidoses) (Resolved) NSTEMI (non-ST elevated myocardial infarction) (Resolved) Syncope (Resolved) 1. 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 2. Iron-deficiency anemia stable s/p transfusion of 2 units on 01/15 iron 29, but ferritin elevated at 383 (if iron-deficient, should be <100) suspect more anemia of chronic disease rather than iron-deficiency c-scope normal and EGD showed gastropathy monitor H/H 3. Difficult fistula access history of fistular stenosis difficulty accessing on 01/[address] Wagner, who states that fistula is fine but was likely accessed in the wrong spot. 4. Hyperkalemia resolved s/p HD monitor 5. HFpEF compensated 6. VTE proph: SCDs, hold chemical proph given anemia. Code Visit Inpatient E&M: 82370 Subs Hosp L2
--- NOTE | 2019-01-18 13:53 | PN_ITS ---
Patient Problems: Active and Suspected Problems (Last Updated 12/23/18 @ 09:50 by Karime Mcrae) Acute on chronic anemia (Acute) Anemia (Acute) Subjective: increased lower extremity edema Vitals/I&O's: Vital Signs Temp Pulse Resp BP Pulse Ox 36.8 C 81 16 141/72 H 95 01/18/19 08:58 01/18/19 11:00 01/18/19 08:58 01/18/19 08:58 01/18/19 08:58 Oxygen Flow Rate (L/min) 2 Oxygen Delivery Method Room Air Weight: 78.5 kg Body Mass Index (BMI) 34.2 Finger Stick Blood Glucose 179 Intake and Output for Last 24 Hours 01/16/19 01/17/19 01/18/19 23:59 23:59 23:59 Intake Total 5707 / 5707 840 / 840 315 / 315 Output Total 240 / 240 Balance 5467 / 5467 840 / 840 315 / 315 General: Alert, No apparent distress HEENT: Atraumatic Neck: No Nodes, Thyroid Normal Size and Texture Lungs: Clear to auscultation, Normal air movement Cardiovascular: Regular rate, Regular Rhythm, Normal S1, Normal S2 Abdomen: Bowel Sounds Present, Soft, Non Tender, Non-Distended, No Hepato- splenomegaly Extremities: No Calf Tenderness, Edema Skin: No rashes, No breakdown Musculoskeletal: No Muscle Wasting Psych/Mental Status: Normal Affect Microbiology Past 72 Hours 01/16/19 05:55 Urine Catheter - [place] Streptococcus pneumoniae Antigen (M - Final 01/16/19 05:55 Interface Orders Legionella Antigen - Final 01/15/19 20:40 Stool Stool Occult Blood (EDIS) - Final 01/14/19 22:40 Mucosa - Nasopharyngeal Respiratory Panel (PCR) - Final Laboratory Results 01/15/19 13:30: Hep Bs Antigen Negative, Hep B Core Total Ab Negative, Hepatitis Be Antibody Negative 01/17/19 13:37: POC Glucose 248 H 01/17/19 16:34: POC Glucose 221 H 01/17/19 22:04: POC Glucose 402 H 01/18/19 05:57: Sodium 133 L, Potassium 3.8, Chloride 101, Carbon Dioxide 24.0, BUN 46 H, Creatinine 3.39 H, Estim Creat Clear Calc 22.42, Est GFR (MDRD) Af Amer 18 L, Est GFR (MDRD) Non-Af 15 L, BUN/Creatinine Ratio 13.6, Glucose 324 H, Calcium 7.8 L, Phosphorus 4.6, Albumin 2.4 L 01/18/19 05:57: WBC 4.9, RBC 3.17 L, Hgb 9.8 L, Hct 29.3 L, MCV 92.4, MCH 30.9, MCHC 33.4, RDW 12.9, RDW Differential 43.8, Plt Count 218, MPV 11.4, Immature Gran % (Auto) 0.200, Neut % (Auto) 58.8, Lymph % (Auto) 21.8, [place] % (Auto) 10.8 H, Eos % (Auto) 7.6 H, Baso % (Auto) 0.8, Absolute Neuts (auto) 2.9, Absolute Lymphs (auto) 1.07, Total Counted Not Reportable 01/18/19 05:57: Magnesium 2.1 01/18/19 06:46: POC Glucose 331 H 01/18/19 11:05: POC Glucose 307 H Current Medications Acetaminophen (Tylenol) 650 mg PO Q6H PRN PRN PRN Reason: Mild Pain (scale 0-3)/T>100.7 Albuterol Sulfate (Ventolin Aerosols) 2.5 mg INHALATION Q2H PRN PRN PRN Reason: SHORTNESS OF BREATH Aspirin (Ecotrin) 81 mg PO DAILY@0800 [facility] Last Admin: 01/18/19 08:44 Dose: 81 mg Atorvastatin Calcium (Lipitor) 80 mg PO QHS [facility] Last Admin: 01/17/19 22:18 Dose: 80 mg Bisacodyl (Dulcolax) 10 mg RECTAL DAILY PRN PRN PRN Reason: Constipation Citalopram Hydrobromide (Celexa) 20 mg PO QHS [facility] Last Admin: 01/17/19 22:18 Dose: 20 mg Clonazepam (Klonopin) 0.5 mg PO Q8H PRN PRN PRN Reason: ANXIETY Last Admin: 01/15/19 17:31 Dose: 0.5 mg Dextrose (D50w Syringe) 0 gm IV X1 PRN; Protocol PRN Reason: Hypoglycemia Docusate Sodium (Colace) 200 mg PO BID PRN PRN PRN Reason: Constipation Furosemide (Lasix) 80 mg PO BID@1000,1800 [facility] Last Admin: 01/18/19 11:06 Dose: 80 mg Gabapentin (Neurontin) 300 mg PO BID [facility] Last Admin: 01/18/19 08:44 Dose: 300 mg Glucagon () 1 mg IM .X1 PRN PRN Reason: Hypoglycemia Guaifenesin (Mucinex) 1,200 mg PO BID [facility] Last Admin: 01/18/19 08:45 Dose: 1,200 mg Ceftriaxone Sodium (Rocephin) 1 gm in 50 mls @ 100 mls/hr IV Q24H [facility] Last Admin: 01/17/19 22:23 Dose: 100 mls/hr Insulin Glargine (Lantus (Bk)) 10 units SC BID [facility] Last Admin: 01/18/19 08:43 Dose: 10 u Insulin Human Lispro (Humalog Kwikpen (Bk)) 0 unit SC ACHS [facility]; Protocol Last Admin: 01/18/19 11:06 Dose: 6 u Iron Sucrose (Venofer) 100 mg IV .DIALYSIS [facility] Last Admin: 01/15/19 13:56 Dose: 100 mg Levothyroxine Sodium (Synthroid) 137 mcg PO DAILY@0600 [facility] Last Admin: 01/18/19 05:35 Dose: 137 mcg Ondansetron HCl (Zofran) 4 mg IV Q8H PRN PRN PRN Reason: Nausea Last Admin: 01/15/19 23:08 Dose: 4 mg Oxycodone HCl (Oxyir) 5 mg PO Q4H PRN PRN PRN Reason: Moderate Pain (pain scale 4-5) Last Admin: 01/15/19 23:36 Dose: 5 mg Polyethylene Glycol (Miralax) 17 gm PO DAILY [facility] Last Admin: 01/18/19 08:44 Dose: Not Given Sodium Chloride () 5 - 15 ml IV UD PRN PRN Reason: SALINE FLUSH Last Admin: 01/17/19 22:27 Dose: 8 ml Zolpidem Tartrate (Ambien (Generic)) 5 mg PO QHS PRN PRN PRN Reason: SLEEP Medical Necessity - Tobacco Use Smoking Status: Never smoker Tobacco Use: Non-smoker Assessment/Plan All Active Problems (Last Updated 12/23/18 @ 09:50 by Karime Mcrae) Acute on chronic anemia (Acute) Anemia (Acute) History of non-ST elevation myocardial infarction (NSTEMI) (Acute) Hyperkalemia (Acute) Problem with dialysis access (Acute) DKA (diabetic ketoacidoses) (Resolved) NSTEMI (non-ST elevated myocardial infarction) (Resolved) Syncope (Resolved) 1. 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 2. Iron-deficiency anemia * stable * s/p transfusion of 2 units on 01/15 * iron 29, but ferritin elevated at 383 (if iron-deficient, should be <100) * suspect more anemia of chronic disease rather than iron-deficiency * c-scope normal and EGD showed gastropathy * monitor H/H 3. Difficult fistula access * history of fistular stenosis * difficulty accessing on 01/15 * Seen by Dr. Wagner, who states that fistula is fine but was likely accessed in the wrong spot. 4. Hyperkalemia * resolved s/p HD * monitor 5. HFpEF * compensated 6. VTE proph: SCDs, hold chemical proph given anemia. Code Visit Inpatient E&M: 13860 Subs Hosp L2
[2019-01-18] MEDS: Insulin Lispro 100 UNIT/ML INSULN.PEN 6 UNIT SC (17:05)
[2019-01-18 17:10] LABS: Bedside Glucose 133 mg/dL (70-110)
[2019-01-18] MEDS: Citalopram 20 MG Tablet PO (21:57)
[2019-01-18] MEDS: Atorvastatin Calcium 80 MG Tablet PO (21:58)
[2019-01-18] MEDS: Ceftriaxone 1 GM/50 ML BAG IV (21:59)
[2019-01-18] MEDS: 0.9% NaCl Peripheral Flush Adult/Peds IV (22:00)
[2019-01-18 23:20] LABS: Bedside Glucose 146 mg/dL (70-110)
[2019-01-19] VITALS (10 sets, daily range): BP systolic 129–159; BP diastolic 53–82; PULSE 73–90; RESP 16–18; TEMP 36.4–37.4; O2SAT 96–98
[2019-01-19] MEDS: Levothyroxine 137 MCG Tablet PO (05:43)
[2019-01-19 07:00] LABS: Bedside Glucose 66 mg/dL (70-110)
[2019-01-19 07:28] LABS: Absolute Lymphocyte Count 1.59 X10^3/ul (0.83-4.51); Absolute Neutrophil Count 2.2 X10^3/uL (2.0-7.7); Basophil# 0.04 X10^3/uL; Basophil% 0.8 % (0-1); Eosinophil# 0.55 X10^3/uL; Eosinophils% 10.6 % (0-5); Hematocrit 30.9 % (37-47); Lymphocyte # 1.59 X10^3/ul (4.0); Lymphocyte % 30.6 % (19-41); Mean Corp Hgb Conc 32.4 g/gl (32-36); Mean Corpuscular Hgb 30.1 pg (27.0-32.0); Mean Corpuscular Volume 93.1 fL (81-99); Mean Platelet Vol. 11.7 fl (6.2-12.0); Monocyte# 0.84 X10^3/uL; Monocyte% 16.2 % (0-10); Neutrophil # 2.16 X10^3/uL (2.7-7.7); Neutrophil % 41.6 % (47-70); Platelet Count 226 K/mm3 (150-450); RBC Distribution Width CV 12.6 % (11.6-14.6); RBC Distribution Width SD 40.8 fl (35.1-43.9); Red Blood Count 3.32 M/mm3 (4.2-5.4); White Blood Count 5.2 K/mm3 (4.4-11.0)
[2019-01-19 07:30] LABS: Bedside Glucose 64 mg/dL (70-110)
[2019-01-19 07:31] LABS: Anion Gap 5 (5-15); BUN 50 mg/dL (7-18); BUN/Creat Ratio 14.7 RATIO (10-20); Calcium,Total 8.3 mg/dL (8.5-10.1); Chloride 106 mmol/L (98-107); EST Glomerular Filtration Rate 15 mL/min (>60); Est Glom Filt Rate - Afr Amer 18 mL/min (>60); Estimated Creatinine Clearance 22.29 ml/min; Glucose 72 mg/dL (74-106); Potassium 3.8 mmol/L (3.5-5.1); Sodium Level 138 mmol/L (136-145)
[2019-01-19 07:33] LABS: POSITIVE COUNT NO; POSITIVE DIFFERENTIAL NO; POSITIVE MORPHOLOGY NO
[2019-01-19] MEDS: Gabapentin 300 MG Capsule PO ×2 (08:01→21:08)
[2019-01-19] MEDS: Furosemide 80 MG Tablet PO ×2 (08:02→16:20)
[2019-01-19] MEDS: Aspirin E.C. 81 MG Tablet PO (08:02)
[2019-01-19] MEDS: guaiFENesin 1,200 MG Tablet 1200 MG PO ×2 (08:02→21:08)
[2019-01-19 08:16] LABS: Bedside Glucose 135 mg/dL (70-110)
--- NOTE | 2019-01-19 09:30 | PCM.PN.REN ---
Patient Problems: Active and Suspected Problems (Last Updated 12/23/18 @ 09:50 by Karime Mcrae) Acute on chronic anemia (Acute) Anemia (Acute) Subjective: still feels puffy no sob/cp - Physical Exam General: Alert, Oriented x3, Cooperative HEENT: Atraumatic, PERRLA, EOMI, Normocephalic Neck: Supple, No JVD, Negative Carotid Bruits Lungs: Clear to auscultation, Normal air movement Cardiovascular: Regular rate, No murmurs Abdomen: Bowel Sounds Present, Soft, Non Tender Extremities: Capillary Refill Less than 3 Seconds, - - edema LE b/l Skin: No rashes, No breakdown Musculoskeletal: No Tenderness to Palpation of Joints or Extremities Neurological: Cranial nerves II-XII grossly intact Psych/Mental Status: Normal Affect, Appropriate Vital Signs Temp Pulse Resp BP Pulse Ox 97.9 F 80 16 159/68 H 98 01/19/19 07:56 01/19/19 07:56 01/19/19 07:56 01/19/19 07:56 01/19/19 07:56 Oxygen Flow Rate (L/min) 2 Oxygen Delivery Method Room Air Weight: 78.3 kg Body Mass Index (BMI) 34.2 Finger Stick Blood Glucose 179 Intake and Output for Last 24 Hours 01/17/19 01/18/19 01/19/19 23:59 23:59 23:59 Intake Total 840 / 840 613.2 / 613.2 Balance 840 / 840 613.2 / 613.2 Microbiology Past 72 Hours 01/16/19 05:55 Streptococcus pneumoniae Antigen (M - Final Urine Catheter - [place] 01/16/19 05:55 Legionella Antigen - Final Interface Orders Laboratory Tests Past 24 Hrs 01/15/19 01/18/19 01/19/19 13:30 05:57 05:38 WBC Cancelled Corrected WBC Cancelled RBC Cancelled Hgb Cancelled Hct Cancelled MCV Cancelled MCH Cancelled MCHC Cancelled RDW Cancelled RDW Differential Cancelled Plt Count Cancelled MPV Cancelled Immature Gran % (Auto) Cancelled Neut % (Auto) Cancelled Lymph % (Auto) Cancelled [place] % (Auto) Cancelled Eos % (Auto) Cancelled Baso % (Auto) Cancelled Absolute Neuts (auto) Cancelled Absolute Lymphs (auto) Cancelled Total Counted Cancelled Neutrophils % (Manual) Cancelled Band Neutrophils % Cancelled Lymphocytes % (Manual) Cancelled Monocytes % (Manual) Cancelled Eosinophils % (Manual) Cancelled Basophils % (Manual) Cancelled Metamyelocytes % Cancelled Myelocytes % Cancelled Promyelocytes % Cancelled Blast Cells % Cancelled Plasma Cell % (Manual) Cancelled Other Cells % Cancelled Nucleated RBCs/100 WBC Cancelled Differential Comment Cancelled Diff Path Review Cancelled Hypersegmented Neuts Cancelled Atypical Lymphocytes Cancelled Reactive Lymphocytes Cancelled Smudge Cells Cancelled Toxic Granulation Cancelled Dohle Bodies Cancelled [place]ile[place] Rods Cancelled Platelet Estimate Cancelled Plt Morphology Comment Cancelled RBC Morphology Cancelled Polychromasia Cancelled Hypochromasia Cancelled Poikilocytosis Cancelled Basophilic Stippling Cancelled Anisocytosis Cancelled Microcytosis Cancelled Macrocytosis Cancelled Spherocytes Cancelled Sickle Cells Cancelled Target Cells Cancelled Tear Drop Cells Cancelled Ovalocytes Cancelled Stomatocytes Cancelled [place] Bodies Cancelled Miranda Cells Cancelled Bite Cells Cancelled Acanthocytes (Spur) Cancelled Rouleaux Cancelled Schistocytes Cancelled Sodium Potassium Chloride Carbon Dioxide Anion Gap BUN Creatinine Estim Creat Clear Calc Est GFR (MDRD) Af Amer Est GFR (MDRD) Non-Af BUN/Creatinine Ratio Glucose Calcium Magnesium 2.1 Hep Bs Antigen Negative Hep B Core Total Ab Negative Hepatitis Be Antibody Negative 01/19/19 01/19/19 06:55 06:55 WBC 5.2 Corrected WBC RBC 3.32 L Hgb 10.0 L Hct 30.9 L MCV 93.1 MCH 30.1 MCHC 32.4 RDW 12.6 RDW Differential 40.8 Plt Count 226 MPV 11.7 Immature Gran % (Auto) 0.200 Neut % (Auto) 41.6 L Lymph % (Auto) 30.6 [place] % (Auto) 16.2 H Eos % (Auto) 10.6 H Baso % (Auto) 0.8 Absolute Neuts (auto) 2.2 Absolute Lymphs (auto) 1.59 Total Counted Not Reportable Neutrophils % (Manual) Band Neutrophils % Lymphocytes % (Manual) Monocytes % (Manual) Eosinophils % (Manual) Basophils % (Manual) Metamyelocytes % Myelocytes % Promyelocytes % Blast Cells % Plasma Cell % (Manual) Other Cells % Nucleated RBCs/100 WBC Differential Comment Diff Path Review Hypersegmented Neuts Atypical Lymphocytes Reactive Lymphocytes Smudge Cells Toxic Granulation Dohle Bodies Yamileth Rods Platelet Estimate Plt Morphology Comment RBC Morphology Polychromasia Hypochromasia Poikilocytosis Basophilic Stippling Anisocytosis Microcytosis Macrocytosis Spherocytes Sickle Cells Target Cells Tear Drop Cells Ovalocytes Stomatocytes [place] Bodies [place] Cells Bite Cells Acanthocytes (Spur) Rouleaux Schistocytes Sodium 138 Potassium 3.8 Chloride 106 Carbon Dioxide 27.0 Anion Gap 5 BUN 50 H Creatinine 3.40 H Estim Creat Clear Calc 22.29 Est GFR (MDRD) Af Amer 18 L Est GFR (MDRD) Non-Af 15 L BUN/Creatinine Ratio 14.7 Glucose 72 L Calcium 8.3 L Magnesium Hep Bs Antigen Hep B Core Total Ab Hepatitis Be Antibody POC Glucose 01/19/19 01/19/19 01/19/19 08:06 07:25 06:56 POC Glucose 135 H 64 L 66 L 01/18/19 01/18/19 01/18/19 21:46 17:02 11:05 POC Glucose 146 H 133 H 307 H Medical Necessity - Tobacco Use Smoking Status: Never smoker Tobacco Use: Non-smoker Assessment/Plan All Active Problems (Last Updated 12/23/18 @ 09:50 by Karime Mcrae) Acute on chronic anemia (Acute) Anemia (Acute) History of non-ST elevation myocardial infarction (NSTEMI) (Acute) Hyperkalemia (Acute) Problem with dialysis access (Acute) DKA (diabetic ketoacidoses) (Resolved) NSTEMI (non-ST elevated myocardial infarction) (Resolved) Syncope (Resolved) JAYLIN on CKD stage 4 with underlying diabetic nephropathy. 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 twice daily Hyponatremia fluid restriction resumed Lasix Malfunction AVF s/p fistulogram with angioplasty, poor bruit and thrill. Reviewed vascular surgeon Dr. Wagner note. Difficult cannulation on 01/15 Acute hyperkalemia requiring urgent dialysis resolved Anemia received iron with dialysis monitor will need more iron bp check outliers manually if persistently high will start meds Her manager environmental health and safety dr. Pineda will resume care on
[2019-01-19] MEDS: Insulin Lispro 100 UNIT/ML INSULN.PEN 6 UNIT SC ×2 (11:41→16:21)
[2019-01-19] MEDS: Insulin Lispro 100 UNIT/ML INSULN.PEN SC ×3 (11:42→21:09)
--- NOTE | 2019-01-19 11:55 | PCM.PN.HOSP ---
Patient Problems: Active and Suspected Problems (Last Updated 12/23/18 @ 09:50 by Karime Mcrae) Acute on chronic anemia (Acute) Anemia (Acute) JAYLIN (acute kidney injury) (Acute) Subjective: low glucose this AM. still with edema in extremities. Vitals/I&O's: Vital Signs Temp Pulse Resp BP Pulse Ox 36.6 C 87 16 159/68 H 98 01/19/19 07:56 01/19/19 10:41 01/19/19 07:56 01/19/19 07:56 01/19/19 07:56 Oxygen Flow Rate (L/min) 2 Oxygen Delivery Method Room Air Weight: 78.3 kg Body Mass Index (BMI) 34.2 Finger Stick Blood Glucose 179 Intake and Output for Last 24 Hours 01/17/19 01/18/19 01/19/19 23:59 23:59 23:59 Intake Total 840 / 840 613.2 / 613.2 700 / 700 Output Total 1100 / 1100 Balance 840 / 840 613.2 / 613.2 -400 / -400 General: Alert, No apparent distress HEENT: Atraumatic, Normocephalic Oral: Moist Mucosa, No Gingival or Mucosal Lesions/ Ulcerations Neck: No Nodes, Thyroid Normal Size and Texture Lungs: Clear to auscultation, Normal air movement, No rhonchi, No wheeze Cardiovascular: Regular rate, Regular Rhythm, Normal S1, Normal S2, No murmurs Abdomen: Bowel Sounds Present, Soft, Non Tender, Non-Distended Extremities: Edema - trace in LE Skin: No rashes, No breakdown Psych/Mental Status: Normal Affect, Appropriate Laboratory Results 01/15/19 13:30: Hep Bs Antigen Negative, Hep B Core Total Ab Negative, Hepatitis Be Antibody Negative 01/18/19 17:02: POC Glucose 133 H 01/18/19 21:46: POC Glucose 146 H 01/19/19 05:38: WBC Cancelled, Corrected WBC Cancelled, RBC Cancelled, Hgb Cancelled, Hct Cancelled, MCV Cancelled, MCH Cancelled, MCHC Cancelled, RDW Cancelled, RDW Differential Cancelled, Plt Count Cancelled, MPV Cancelled, Immature Gran % (Auto) Cancelled, Neut % (Auto) Cancelled, Lymph % (Auto) Cancelled, [place] % (Auto) Cancelled, Eos % (Auto) Cancelled, Baso % (Auto) Cancelled, Absolute Neuts (auto) Cancelled, Absolute Lymphs (auto) Cancelled, Total Counted Cancelled, Neutrophils % (Manual) Cancelled, Band Neutrophils % Cancelled, Lymphocytes % (Manual) Cancelled, Monocytes % (Manual) Cancelled, Eosinophils % (Manual) Cancelled, Basophils % (Manual) Cancelled, Metamyelocytes % Cancelled, Myelocytes % Cancelled, Promyelocytes % Cancelled, Blast Cells % Cancelled, Plasma Cell % (Manual) Cancelled, Other Cells % Cancelled, Nucleated RBCs/100 WBC Cancelled, Differential Comment Cancelled, Diff Path Review Cancelled, Hypersegmented Neuts Cancelled, Atypical Lymphocytes Cancelled, Reactive Lymphocytes Cancelled, Smudge Cells Cancelled, Toxic Granulation Cancelled, Dohle Bodies Cancelled, [place]ile[place] Rods Cancelled, Platelet Estimate Cancelled, Plt Morphology Comment Cancelled, RBC Morphology Cancelled, Polychromasia Cancelled, Hypochromasia Cancelled, Poikilocytosis Cancelled, Basophilic Stippling Cancelled, Anisocytosis Cancelled, Microcytosis Cancelled, Macrocytosis Cancelled, Spherocytes Cancelled, Sickle Cells Cancelled, Target Cells Cancelled, Tear Drop Cells Cancelled, Ovalocytes Cancelled, Stomatocytes Cancelled, [place] Bodies Cancelled, Miranda Cells Cancelled, Bite Cells Cancelled, Acanthocytes (Spur) Cancelled, Rouleaux Cancelled, Schistocytes Cancelled 01/19/19 06:55: Sodium 138, Potassium 3.8, Chloride 106, Carbon Dioxide 27.0, Anion Gap 5, BUN 50 H, Creatinine 3.40 H, Estim Creat Clear Calc 22.29, Est GFR (MDRD) Af Amer 18 L, Est GFR (MDRD) Non-Af 15 L, BUN/Creatinine Ratio 14.7, Glucose 72 L, Calcium 8.3 L 01/19/19 06:55: WBC 5.2, RBC 3.32 L, Hgb 10.0 L, Hct 30.9 L, MCV 93.1, MCH 30.1, MCHC 32.4, RDW 12.6, RDW Differential 40.8, Plt Count 226, MPV 11.7, Immature Gran % (Auto) 0.200, Neut % (Auto) 41.6 L, Lymph % (Auto) 30.6, [place] % (Auto) 16.2 H, Eos % (Auto) 10.6 H, Baso % (Auto) 0.8, Absolute Neuts (auto) 2.2, Absolute Lymphs (auto) 1.59, Total Counted Not Reportable 01/19/19 06:56: POC Glucose 66 L 01/19/19 07:25: POC Glucose 64 L 01/19/19 08:06: POC Glucose 135 H Current Medications Acetaminophen (Tylenol) 650 mg PO Q6H PRN PRN PRN Reason: Mild Pain (scale 0-3)/T>100.7 Albuterol Sulfate (Ventolin Aerosols) 2.5 mg INHALATION Q2H PRN PRN PRN Reason: SHORTNESS OF BREATH Aspirin (Ecotrin) 81 mg PO DAILY@0800 [facility] Last Admin: 01/19/19 08:02 Dose: 81 mg Atorvastatin Calcium (Lipitor) 80 mg PO QHS [facility] Last Admin: 01/18/19 21:58 Dose: 80 mg Bisacodyl (Dulcolax) 10 mg RECTAL DAILY PRN PRN PRN Reason: Constipation Citalopram Hydrobromide (Celexa) 20 mg PO QHS [facility] Last Admin: 01/18/19 21:57 Dose: 20 mg Clonazepam (Klonopin) 0.5 mg PO Q8H PRN PRN PRN Reason: ANXIETY Last Admin: 01/15/19 17:31 Dose: 0.5 mg Dextrose (D50w Syringe) 0 gm IV X1 PRN; Protocol PRN Reason: Hypoglycemia Docusate Sodium (Colace) 200 mg PO BID PRN PRN PRN Reason: Constipation Furosemide (Lasix) 80 mg PO BID@1000,1800 [facility] Last Admin: 01/19/19 08:02 Dose: 80 mg Gabapentin (Neurontin) 300 mg PO BID [facility] Last Admin: 01/19/19 08:01 Dose: 300 mg Glucagon () 1 mg IM .X1 PRN PRN Reason: Hypoglycemia Guaifenesin (Mucinex) 1,200 mg PO BID [facility] Last Admin: 01/19/19 08:02 Dose: 1,200 mg Ceftriaxone Sodium (Rocephin) 1 gm in 50 mls @ 100 mls/hr IV Q24H [facility] Last Admin: 01/18/19 21:59 Dose: 100 mls/hr Insulin Glargine (Lantus (Bkc)) 9 units SC BID [facility] Last Admin: 01/19/19 10:34 Dose: 9 u Insulin Human Lispro (Humalog Kwikpen (Bkc)) 0 unit SC ACHS [facility]; Protocol Last Admin: 01/19/19 11:42 Dose: 6 u Insulin Human Lispro (Humalog Kwikpen (Bkc)) 6 unit SC TIDAC [facility] Last Admin: 01/19/19 11:41 Dose: 6 u Iron Sucrose (Venofer) 100 mg IV .DIALYSIS [facility] Last Admin: 01/15/19 13:56 Dose: 100 mg Levothyroxine Sodium (Synthroid) 137 mcg PO DAILY@0600 [facility] Last Admin: 01/19/19 05:43 Dose: 137 mcg Ondansetron HCl (Zofran) 4 mg IV Q8H PRN PRN PRN Reason: Nausea Last Admin: 01/15/19 23:08 Dose: 4 mg Oxycodone HCl (Oxyir) 5 mg PO Q4H PRN PRN PRN Reason: Moderate Pain (pain scale 4-5) Last Admin: 01/15/19 23:36 Dose: 5 mg Polyethylene Glycol (Miralax) 17 gm PO DAILY [facility] Last Admin: 01/19/19 08:02 Dose: Not Given Sodium Chloride () 5 - 15 ml IV UD PRN PRN Reason: SALINE FLUSH Last Admin: 01/18/19 22:00 Dose: 10 ml Zolpidem Tartrate (Ambien (Generic)) 5 mg PO QHS PRN PRN PRN Reason: SLEEP Medical Necessity - Tobacco Use Smoking Status: Never smoker Tobacco Use: Non-smoker Assessment/Plan All Active Problems (Last Updated 12/23/18 @ 09:50 by Karime Mcrae) Acute on chronic anemia (Acute) Anemia (Acute) JAYLIN (acute kidney injury) (Acute) History of non-ST elevation myocardial infarction (NSTEMI) (Acute) Hyperkalemia (Resolved) Problem with dialysis access (Acute) DKA (diabetic ketoacidoses) (Resolved) NSTEMI (non-ST elevated myocardial infarction) (Resolved) Syncope (Resolved) 1. JAYLIN improved overall baseline cr around 3 nephrology following no urgent SENIOR POWER SCHEDULER at this time. DW Dr. Xie, to continue with oral lasix for now, monitor creatinine, and await her sexual assault counsellor, Dr. Pineda, to see 01/20 2. Iron-deficiency anemia stable s/p transfusion of 2 units on 01/15 iron 29, but ferritin elevated at 383 (if iron-deficient, should be <100) suspect more anemia of chronic disease rather than iron-deficiency c-scope normal and EGD showed gastropathy monitor H/H 3. Difficult fistula access history of fistular stenosis difficulty accessing on 01/[address] Wagner, who states that fistula is fine but was likely accessed in the wrong spot. 4. Hyperkalemia resolved s/p HD monitor 5. HFpEF compensated 6. VTE proph: SCDs, hold chemical proph given anemia. 7. Pneumonia ruled out: dc ctx. Code Visit Inpatient E&M: 80998 Subs Hosp L2
--- NOTE | 2019-01-19 11:59 | PN_ITS ---
Patient Problems: Active and Suspected Problems (Last Updated 12/23/18 @ 09:50 by Karime Mcrae) Acute on chronic anemia (Acute) Anemia (Acute) JAYLIN (acute kidney injury) (Acute) Subjective: low glucose this AM. still with edema in extremities. Vitals/I&O's: Vital Signs Temp Pulse Resp BP Pulse Ox 36.6 C 87 16 159/68 H 98 01/19/19 07:56 01/19/19 10:41 01/19/19 07:56 01/19/19 07:56 01/19/19 07:56 Oxygen Flow Rate (L/min) 2 Oxygen Delivery Method Room Air Weight: 78.3 kg Body Mass Index (BMI) 34.2 Finger Stick Blood Glucose 179 Intake and Output for Last 24 Hours 01/17/19 01/18/19 01/19/19 23:59 23:59 23:59 Intake Total 840 / 840 613.2 / 613.2 700 / 700 Output Total 1100 / 1100 Balance 840 / 840 613.2 / 613.2 -400 / -400 General: Alert, No apparent distress HEENT: Atraumatic, Normocephalic Oral: Moist Mucosa, No Gingival or Mucosal Lesions/ Ulcerations Neck: No Nodes, Thyroid Normal Size and Texture Lungs: Clear to auscultation, Normal air movement, No rhonchi, No wheeze Cardiovascular: Regular rate, Regular Rhythm, Normal S1, Normal S2, No murmurs Abdomen: Bowel Sounds Present, Soft, Non Tender, Non-Distended Extremities: Edema - trace in LE Skin: No rashes, No breakdown Psych/Mental Status: Normal Affect, Appropriate Laboratory Results 01/15/19 13:30: Hep Bs Antigen Negative, Hep B Core Total Ab Negative, Hepatitis Be Antibody Negative 01/18/19 17:02: POC Glucose 133 H 01/18/19 21:46: POC Glucose 146 H 01/19/19 05:38: WBC Cancelled, Corrected WBC Cancelled, RBC Cancelled, Hgb Cancelled, Hct Cancelled, MCV Cancelled, MCH Cancelled, MCHC Cancelled, RDW Cancelled, RDW Differential Cancelled, Plt Count Cancelled, MPV Cancelled, Immature Gran % (Auto) Cancelled, Neut % (Auto) Cancelled, Lymph % (Auto) Cancelled, [place] % (Auto) Cancelled, Eos % (Auto) Cancelled, Baso % (Auto) Cancelled, Absolute Neuts (auto) Cancelled, Absolute Lymphs (auto) Cancelled, Total Counted Cancelled, Neutrophils % (Manual) Cancelled, Band Neutrophils % Cancelled, Lymphocytes % (Manual) Cancelled, Monocytes % (Manual) Cancelled, Eosinophils % (Manual) Cancelled, Basophils % (Manual) Cancelled, Metamyelocytes % Cancelled, Myelocytes % Cancelled, Promyelocytes % Cancelled, Blast Cells % Cancelled, Plasma Cell % (Manual) Cancelled, Other Cells % Cancelled, Nucleated RBCs/100 WBC Cancelled, Differential Comment Cancelled, Diff Path Review Cancelled, Hypersegmented Neuts Cancelled, Atypical Lymphocytes Cancelled, Reactive Lymphocytes Cancelled, Smudge Cells Cancelled, Toxic Granulation Cancelled, Dohle Bodies Cancelled, Yamile[place] Rods Cancelled, Platelet Estimate Cancelled, Plt Morphology Comment Cancelled, RBC Morphology Cancelled, Polychromasia Cancelled, Hypochromasia Cancelled, Poikilocytosis Cancelled, Basophilic Stippling Cancelled, Anisocytosis Cancelled, Microcytosis Cancelled, Macrocytosis Cancelled, Spherocytes Cancelled, Sickle Cells Cancelled, Target Cells Cancelled, Tear Drop Cells Cancelled, Ovalocytes Cancelled, Stomatocytes Cancelled, [place] Bodies Cancelled, Miranda Cells Cancelled, Bite Cells Cancelled, Acanthocytes (Spur) Cancelled, Rouleaux Cancelled, Schistocytes Cancelled 01/19/19 06:55: Sodium 138, Potassium 3.8, Chloride 106, Carbon Dioxide 27.0, Anion Gap 5, BUN 50 H, Creatinine 3.40 H, Estim Creat Clear Calc 22.29, Est GFR (MDRD) Af Amer 18 L, Est GFR (MDRD) Non-Af 15 L, BUN/Creatinine Ratio 14.7, Glucose 72 L, Calcium 8.3 L 01/19/19 06:55: WBC 5.2, RBC 3.32 L, Hgb 10.0 L, Hct 30.9 L, MCV 93.1, MCH 30.1, MCHC 32.4, RDW 12.6, RDW Differential 40.8, Plt Count 226, MPV 11.7, Immature Gran % (Auto) 0.200, Neut % (Auto) 41.6 L, Lymph % (Auto) 30.6, [place] % (Auto) 16.2 H, Eos % (Auto) 10.6 H, Baso % (Auto) 0.8, Absolute Neuts (auto) 2.2, Absolute Lymphs (auto) 1.59, Total Counted Not Reportable 01/19/19 06:56: POC Glucose 66 L 01/19/19 07:25: POC Glucose 64 L 01/19/19 08:06: POC Glucose 135 H Current Medications Acetaminophen (Tylenol) 650 mg PO Q6H PRN PRN PRN Reason: Mild Pain (scale 0-3)/T>100.7 Albuterol Sulfate (Ventolin Aerosols) 2.5 mg INHALATION Q2H PRN PRN PRN Reason: SHORTNESS OF BREATH Aspirin (Ecotrin) 81 mg PO DAILY@0800 [facility] Last Admin: 01/19/19 08:02 Dose: 81 mg Atorvastatin Calcium (Lipitor) 80 mg PO QHS [facility] Last Admin: 01/18/19 21:58 Dose: 80 mg Bisacodyl (Dulcolax) 10 mg RECTAL DAILY PRN PRN PRN Reason: Constipation Citalopram Hydrobromide (Celexa) 20 mg PO QHS [facility] Last Admin: 01/18/19 21:57 Dose: 20 mg Clonazepam (Klonopin) 0.5 mg PO Q8H PRN PRN PRN Reason: ANXIETY Last Admin: 01/15/19 17:31 Dose: 0.5 mg Dextrose (D50w Syringe) 0 gm IV X1 PRN; Protocol PRN Reason: Hypoglycemia Docusate Sodium (Colace) 200 mg PO BID PRN PRN PRN Reason: Constipation Furosemide (Lasix) 80 mg PO BID@1000,1800 [facility] Last Admin: 01/19/19 08:02 Dose: 80 mg Gabapentin (Neurontin) 300 mg PO BID [facility] Last Admin: 01/19/19 08:01 Dose: 300 mg Glucagon () 1 mg IM .X1 PRN PRN Reason: Hypoglycemia Guaifenesin (Mucinex) 1,200 mg PO BID [facility] Last Admin: 01/19/19 08:02 Dose: 1,200 mg Ceftriaxone Sodium (Rocephin) 1 gm in 50 mls @ 100 mls/hr IV Q24H [facility] Last Admin: 01/18/19 21:59 Dose: 100 mls/hr Insulin Glargine (Lantus (Bkc)) 9 units SC BID [facility] Last Admin: 01/19/19 10:34 Dose: 9 u Insulin Human Lispro (Humalog Kwikpen (Bkc)) 0 unit SC ACHS [facility]; Protocol Last Admin: 01/19/19 11:42 Dose: 6 u Insulin Human Lispro (Humalog Kwikpen (Bkc)) 6 unit SC TIDAC [facility] Last Admin: 01/19/19 11:41 Dose: 6 u Iron Sucrose (Venofer) 100 mg IV .DIALYSIS [facility] Last Admin: 01/15/19 13:56 Dose: 100 mg Levothyroxine Sodium (Synthroid) 137 mcg PO DAILY@0600 [facility] Last Admin: 01/19/19 05:43 Dose: 137 mcg Ondansetron HCl (Zofran) 4 mg IV Q8H PRN PRN PRN Reason: Nausea Last Admin: 01/15/19 23:08 Dose: 4 mg Oxycodone HCl (Oxyir) 5 mg PO Q4H PRN PRN PRN Reason: Moderate Pain (pain scale 4-5) Last Admin: 01/15/19 23:36 Dose: 5 mg Polyethylene Glycol (Miralax) 17 gm PO DAILY [facility] Last Admin: 01/19/19 08:02 Dose: Not Given Sodium Chloride () 5 - 15 ml IV UD PRN PRN Reason: SALINE FLUSH Last Admin: 01/18/19 22:00 Dose: 10 ml Zolpidem Tartrate (Ambien (Generic)) 5 mg PO QHS PRN PRN PRN Reason: SLEEP Medical Necessity - Tobacco Use Smoking Status: Never smoker Tobacco Use: Non-smoker Assessment/Plan All Active Problems (Last Updated 12/23/18 @ 09:50 by Karime Mcrae) Acute on chronic anemia (Acute) Anemia (Acute) JAYLIN (acute kidney injury) (Acute) History of non-ST elevation myocardial infarction (NSTEMI) (Acute) Hyperkalemia (Resolved) Problem with dialysis access (Acute) DKA (diabetic ketoacidoses) (Resolved) NSTEMI (non-ST elevated myocardial infarction) (Resolved) Syncope (Resolved) 1. 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 * DW Dr. Xie, to continue with oral lasix for now, monitor creatinine, and await her government affairs specialist, Dr. Pineda, to see 01/20 2. Iron-deficiency anemia * stable * s/p transfusion of 2 units on 01/15 * iron 29, but ferritin elevated at 383 (if iron-deficient, should be <100) * suspect more anemia of chronic disease rather than iron-deficiency * c-scope normal and EGD showed gastropathy * monitor H/H 3. Difficult fistula access * history of fistular stenosis * difficulty accessing on 01/15 * Seen by Dr. Wagner, who states that fistula is fine but was likely accessed in the wrong spot. 4. Hyperkalemia * resolved s/p HD * monitor 5. HFpEF * compensated 6. VTE proph: SCDs, hold chemical proph given anemia. 7. Pneumonia ruled out: dc ctx. Code Visit Inpatient E&M: 39867 Subs Hosp L2
[2019-01-19 12:41] LABS: Bedside Glucose 281 mg/dL (70-110)
[2019-01-19 16:40] LABS: Bedside Glucose 195 mg/dL (70-110)
[2019-01-19] MEDS: Atorvastatin Calcium 80 MG Tablet PO (21:08)
[2019-01-19] MEDS: Citalopram 20 MG Tablet PO (21:08)
--- NOTE | 2019-01-19 22:54 | NURSING ---
Called report to Alma DAHL on [facility] at this time.
[2019-01-20] VITALS: PULSE 85
[2019-01-20 02:16] LABS: Bedside Glucose 174 mg/dL (70-110)
[2019-01-20 04:00] VITALS: PULSE 80
[2019-01-20 05:36] VITALS: BP 148/77; PULSE 82; RESP 16; TEMP 37; O2SAT 96
[2019-01-20] MEDS: Levothyroxine 137 MCG Tablet PO (05:36)
[2019-01-20 07:03] LABS: Anion Gap 7 (5-15); BUN 55 mg/dL (7-18); BUN/Creat Ratio 17.1 RATIO (10-20); Chloride 105 mmol/L (98-107); Creatinine, Serum 3.22 mg/dL (0.55-1.02); EST Glomerular Filtration Rate 16 mL/min (>60); Est Glom Filt Rate - Afr Amer 19 mL/min (>60); Estimated Creatinine Clearance 23.54 ml/min; Glucose 167 mg/dL (74-106); Potassium 3.7 mmol/L (3.5-5.1); Sodium Level 141 mmol/L (136-145)
[2019-01-20] MEDS: Gabapentin 300 MG Capsule PO (08:56)
[2019-01-20] MEDS: Furosemide 80 MG Tablet PO (08:56)
[2019-01-20] MEDS: Aspirin E.C. 81 MG Tablet PO (08:56)
[2019-01-20] MEDS: guaiFENesin 1,200 MG Tablet 1200 MG PO (08:57)
[2019-01-20] MEDS: Insulin Lispro 100 UNIT/ML INSULN.PEN 6 UNIT SC ×2 (09:00→12:01)
[2019-01-20] MEDS: Insulin Lispro 100 UNIT/ML INSULN.PEN SC ×2 (09:01→12:01)
[2019-01-20 09:10] LABS: Bedside Glucose 168 mg/dL (70-110)
[2019-01-20 10:38] VITALS: PULSE 87
[2019-01-20 10:47] VITALS: BP 152/58; PULSE 86; RESP 18; TEMP 36.6; O2SAT 95
[2019-01-20 12:10] LABS: Bedside Glucose 164 mg/dL (70-110)
--- NOTE | 2019-01-20 13:16 | PCM.PN.HOSP ---
Patient Problems: Active and Suspected Problems (Last Updated 12/23/18 @ 09:50 by Karime Mcrae) Acute on chronic anemia (Acute) Anemia (Acute) Subjective: Decreased LE edema. Vitals/I&O's: Vital Signs Temp Pulse Resp BP Pulse Ox 36.6 C 86 18 152/58 H 95 01/20/19 10:47 01/20/19 10:47 01/20/19 10:47 01/20/19 10:47 01/20/19 10:47 Oxygen Flow Rate (L/min) 2 Oxygen Delivery Method Room Air Weight: 78.3 kg Body Mass Index (BMI) 34.2 Finger Stick Blood Glucose 179 Intake and Output for Last 24 Hours 01/18/19 01/19/19 01/20/19 23:59 23:59 23:59 Intake Total 613.2 / 613.2 910 / 910 Output Total 1999 650 / 650 Balance 613.2 / 613.2 -1090 / -1090 -650 / -650 General: Alert, No apparent distress HEENT: Atraumatic, Normocephalic Oral: Moist Mucosa Neck: No Nodes, Thyroid Normal Size and Texture Lungs: Clear to auscultation, Normal air movement, No rhonchi, No wheeze Cardiovascular: Regular rate, Regular Rhythm, Normal S1, Normal S2, No murmurs Abdomen: Bowel Sounds Present, Soft, Non Tender, Non-Distended, No Hepato-splenomegaly Extremities: No edema, No Calf Tenderness Psych/Mental Status: Normal Affect, Appropriate Laboratory Results 01/19/19 16:18: POC Glucose 195 H 01/19/19 21:04: POC Glucose 174 H 01/20/19 06:30: Sodium 141, Potassium 3.7, Chloride 105, Carbon Dioxide 29.0, Anion Gap 7, BUN 55 H, Creatinine 3.22 H, Estim Creat Clear Calc 23.54, Est GFR (MDRD) Af Amer 19 L, Est GFR (MDRD) Non-Af 16 L, BUN/Creatinine Ratio 17.1, Glucose 167 H, Calcium 8.0 L 01/20/19 08:44: POC Glucose 168 H 01/20/19 11:59: POC Glucose 164 H Current Medications Acetaminophen (Tylenol) 650 mg PO Q6H PRN PRN PRN Reason: Mild Pain (scale 0-3)/T>100.7 Albuterol Sulfate (Ventolin Aerosols) 2.5 mg INHALATION Q2H PRN PRN PRN Reason: SHORTNESS OF BREATH Aspirin (Ecotrin) 81 mg PO DAILY@0800 [facility] Last Admin: 01/20/19 08:56 Dose: 81 mg Atorvastatin Calcium (Lipitor) 80 mg PO QHS [facility] Last Admin: 01/19/19 21:08 Dose: 80 mg Bisacodyl (Dulcolax) 10 mg RECTAL DAILY PRN PRN PRN Reason: Constipation Citalopram Hydrobromide (Celexa) 20 mg PO QHS [facility] Last Admin: 01/19/19 21:08 Dose: 20 mg Clonazepam (Klonopin) 0.5 mg PO Q8H PRN PRN PRN Reason: ANXIETY Last Admin: 01/15/19 17:31 Dose: 0.5 mg Dextrose (D50w Syringe) 0 gm IV X1 PRN; Protocol PRN Reason: Hypoglycemia Docusate Sodium (Colace) 200 mg PO BID PRN PRN PRN Reason: Constipation Furosemide (Lasix) 80 mg PO BID@1000,1800 [facility] Last Admin: 01/20/19 08:56 Dose: 80 mg Gabapentin (Neurontin) 300 mg PO BID [facility] Last Admin: 01/20/19 08:56 Dose: 300 mg Glucagon () 1 mg IM .X1 PRN PRN Reason: Hypoglycemia Guaifenesin (Mucinex) 1,200 mg PO BID [facility] Last Admin: 01/20/19 08:57 Dose: 1,200 mg Insulin Glargine (Lantus (Bkc)) 9 units SC BID [facility] Last Admin: 01/20/19 09:01 Dose: 9 u Insulin Human Lispro (Humalog Kwikpen (Bkc)) 0 unit SC ACHS [facility]; Protocol Last Admin: 01/20/19 12:01 Dose: 2 u Insulin Human Lispro (Humalog Kwikpen (Bkc)) 6 unit SC TIDAC [facility] Last Admin: 01/20/19 12:01 Dose: 6 u Iron Sucrose (Venofer) 100 mg IV .DIALYSIS [facility] Last Admin: 01/15/19 13:56 Dose: 100 mg Levothyroxine Sodium (Synthroid) 137 mcg PO DAILY@0600 [facility] Last Admin: 01/20/19 05:36 Dose: 137 mcg Ondansetron HCl (Zofran) 4 mg IV Q8H PRN PRN PRN Reason: Nausea Last Admin: 01/15/19 23:08 Dose: 4 mg Oxycodone HCl (Oxyir) 5 mg PO Q4H PRN PRN PRN Reason: Moderate Pain (pain scale 4-5) Last Admin: 01/15/19 23:36 Dose: 5 mg Polyethylene Glycol (Miralax) 17 gm PO DAILY [facility] Last Admin: 01/20/19 08:58 Dose: Not Given Sodium Chloride () 5 - 15 ml IV UD PRN PRN Reason: SALINE FLUSH Last Admin: 01/18/19 22:00 Dose: 10 ml Zolpidem Tartrate (Ambien (Generic)) 5 mg PO QHS PRN PRN PRN Reason: SLEEP Medical Necessity - Tobacco Use Smoking Status: Never smoker Tobacco Use: Non-smoker Assessment/Plan All Active Problems (Last Updated 12/23/18 @ 09:50 by Karime Mcrae) JAYLIN (acute kidney injury) (Acute) Acute on chronic anemia (Acute) Anemia (Acute) History of non-ST elevation myocardial infarction (NSTEMI) (Acute) Hyperkalemia (Resolved) Problem with dialysis access (Acute) DKA (diabetic ketoacidoses) (Resolved) NSTEMI (non-ST elevated myocardial infarction) (Resolved) Syncope (Resolved) 1. JAYLIN improved overall baseline cr around 3 nephrology following no urgent ARCHAEOLOGIST at this time. DW Dr. Xie, to continue with oral lasix for now, monitor creatinine, and await her control systems eng, Dr. Pineda, to see 01/20 2. Iron-deficiency anemia stable s/p transfusion of 2 units on 01/15 iron 29, but ferritin elevated at 383 (if iron-deficient, should be <100) suspect more anemia of chronic disease rather than iron-deficiency c-scope normal and EGD showed gastropathy monitor H/H 3. Difficult fistula access history of fistular stenosis difficulty accessing on 01/[address] Wagner, who states that fistula is fine but was likely accessed in the wrong spot. 4. Hyperkalemia resolved s/p HD monitor 5. HFpEF compensated 6. VTE proph: SCDs, hold chemical proph given anemia. 7. Pneumonia ruled out: dc ctx. Code Visit Inpatient E&M: 38365 Subs Hosp L2
--- NOTE | 2019-01-20 15:10 | DCINST_ITS ---
- Discharge Diagnoses Current Active Problems: Current Active and Chronic Problems (Last Updated 12/23/18 @ 09:50 by Karime Mcrae) Acute on chronic anemia (Acute) Ascites (Chronic) Anemia (Acute) You will use the following diet at home:: Fluid restricted (specify 2000 mls, 1500 mls) - 1500cc/day, Renal (restricted protein/sodium) Your food should be the consistency of: Regular Your liquids should be the consistency of: Regular/Thin Discharge Activity: Return to Normal Activity Call your doctor if you observe: Fever of 101 or Higher, Shortness of breath, Swelling in the ankles - increased Allergies/Adverse Reactions: Allergies prednisone Allergy (Unknown, Verified 12/23/18 09:48) Unknown prochlorperazine edisylate [From Compazine] Adverse Reaction (Verified 12/23/18 09:48) Other i wig out prochlorperazine maleate [From Compazine] Adverse Reaction (Verified 12/23/18 09:48) Other Medications to take at Discharge Clonazepam [Klonopin] 0.5 mg PO Q8H PRN PRN 12/17/17 gabapentin 300 mg capsule 300 mg PO BID cap 12/18/17 aspirin 81 mg tablet,delayed release 81 mg PO DAILY 04/08/18 Atorvastatin Calcium [Lipitor] 80 mg PO QHS 01/14/19 Citalopram Hydrobromide [Citalopram HBr] 20 mg PO QHS 01/14/19 Docusate Sodium [Colace] 100 mg PO DAILY 01/14/19 Levothyroxine [Synthroid] 137 mcg PO DAILY 01/14/19 Acetaminophen [Tylenol Tablet] 650 mg PO Q6H PRN PRN tablet 01/20/19 Furosemide [Lasix] 80 mg PO BID@1000,1800 #60 tablet 01/20/19 Insulin Detemir [Levemir FlexPen] 9 units SQ BID #0 01/20/19 The following prescriptions were given: Furosemide [Lasix] 80 mg PO BID@1000,1800 #60 tablet Orders to be completed after discharge: Basic Metabolic Profile (BMP) Location: Laboratory Primary Care Physician: Care Physician,No Primary [Primary Care Provider] - Test Results: Test results from this visit will be discussed in further detail at your follow- up appointment, if applicable. Please Follow Up With: Ebony Spain MD When: 2 weeks Please Follow Up With: Dee Dee Pineda DO When: 1-2 weeks Proposed Discharge Date: 01/20/19
--- NOTE | 2019-01-20 15:10 | PCM.DC.SUM ---
Discharge Date and Diagnosis - Problem List Patient Problems: Active and Suspected Problems (Last Updated 12/23/18 @ 09:50 by Karime cMrae) Acute on chronic anemia (Acute) Anemia (Acute) Date of Admission: 01/14/19 Date of Discharge: 01/20/19 - Primary Discharge Diagnosis Active and Suspected Problems (Last Updated 12/23/18 @ 09:50 by Karime Mcrae) Acute on chronic anemia (Acute) Anemia (Acute) 1. JAYLIN improved overall baseline cr around 3 nephrology following no urgent BLOOD BANK LABORATORY TECHNICIAN at this time. DW Dr. Xie, to continue with oral lasix for now, monitor creatinine, and await her mop handle assembler, Dr. Pineda, to see 01/[address] Pineda today, and reviewed the case. OK to continue furosemide [address] Pineda will follow up patient as outpt. 2. Iron-deficiency anemia stable s/p transfusion of 2 units on 01/15 iron 29, but ferritin elevated at 383 (if iron-deficient, should be <100) suspect more anemia of chronic disease rather than iron-deficiency c-scope normal and EGD showed gastropathy monitor H/H 3. Difficult fistula access history of fistular stenosis difficulty accessing on 01/[address] Wagner, who states that fistula is fine but was likely accessed in the wrong spot. 4. Hyperkalemia resolved s/p HD monitor 5. HFpEF compensated 6. Pneumonia ruled out: dc ctx. - Secondary Discharge Diagnosis Chronic Problems (Last Updated 12/23/18 @ 09:50 by Karime Mcrae) Ascites (Chronic) Nonrheumatic mitral valve regurgitation (Chronic) Atherosclerotic heart disease of [place] coronary artery without angina pectoris (Chronic) Chronic kidney disease, stage 4, severely decreased GFR (Chronic) under care of nephrology. CHF (congestive heart failure) (Chronic) Diabetes type I (Chronic) Dx : age 4 Last exacerbation : DKA : 2015 Hypoglycemic episode : 2016 ER visit : 2016 No data for review. Patient is ask to bring data to office for download. Discussed checking BG before meals and 2 hours post meal. Discussed carb counting meals and we reviewed how to carb count and also reading labels. We reviewd how to determine I/c ratios. Reviewed possibly using insulin pump in future. Is on arb. On statin. . Chronic kidney disease, stage 4, severely decreased GFR (Chronic) HTN (hypertension) (Chronic) Hyperlipidemia (Chronic) Under care of cardiology. Will need to update labs. Hypothyroidism (Chronic) Thyroid replacement d/cd although not sure why. Will need to check labs and determine why this is. Patient unable to answer. Diabetic polyneuropathy (Chronic) Asthma (Chronic) Charcot's joint of right foot (Chronic) Hospital Course and Treatment Imaging Results: Clinical Impression(s) from Imaging Studies Chest X-Ray 01/14/19 15:12 IMPRESSION: Bilateral diffuse airspace disease. Follow-up is recommended. Electronically Signed: Todd Zapien, at 15:38 EDT , Service support , Abdomen Ultrasound 01/15/19 05:55 IMPRESSION: 1. Mild fluid surrounding the liver margin with no evidence of large abdominal ascites. 2. Likely chronic renal changes of the right kidney with noted perinephric stranding, clinically correlate for underlying acute inflammation. 3. Limited view of the pancreas due to overlying bowel gas. Electronically Signed: Eric Gomez DO at 9:41 EDT , Service support , Chest X-Ray 01/16/19 05:55 IMPRESSION: Improved bilateral mid to lower lung airspace disease with continuing right small effusion. Electronically Signed: Eric Gomez DO at 8:39 EDT , Service support , [facility] general surgery Operations: None Procedures: Colonoscopy, EGD Summary of Care Provided: The patient is a 58 year old F with diffuse anasarca. Patient started on IV Lasix and then developed acute kidney injury. Seen by nephrology intervention patient was resumed back on oral Lasix, and 80 mg twice daily. Overall patient has done well and will continue with 80 mg of Lasix as outpatient. She will follow-up with Dr. Pineda as outpatient. Patient be going home with home health care. [] Patient Problems: Active and Suspected Problems (Last Updated 12/23/18 @ 09:50 by Karime Mcrae) Acute on chronic anemia (Acute) Anemia (Acute) - Physical Exam Vital Signs Temp Pulse Resp BP Pulse Ox 36.6 C 86 18 152/58 H 95 01/20/19 10:47 01/20/19 10:47 01/20/19 10:47 01/20/19 10:47 01/20/19 10:47 Oxygen Flow Rate (L/min) 2 Oxygen Delivery Method Room Air Weight: 78.3 kg Body Mass Index (BMI) 34.2 Finger Stick Blood Glucose 179 Intake and Output for Last 24 Hours 01/18/19 01/19/19 01/20/19 23:59 23:59 23:59 Intake Total 613.2 / 613.2 910 / 910 Output Total 1999 650 / 650 Balance 613.2 / 613.2 -1090 / -1090 -650 / -650 Laboratory Tests Past 24 Hrs 01/20/19 06:30 Sodium 141 Potassium 3.7 Chloride 105 Carbon Dioxide 29.0 Anion Gap 7 BUN 55 H Creatinine 3.22 H Estim Creat Clear Calc 23.54 Est GFR (MDRD) Af Amer 19 L Est GFR (MDRD) Non-Af 16 L BUN/Creatinine Ratio 17.1 Glucose 167 H Calcium 8.0 L POC Glucose 01/20/19 01/20/19 01/19/19 11:59 08:44 21:04 POC Glucose 164 H 168 H 174 H 01/19/19 16:18 POC Glucose 195 H Discharge Diet: 6 Cup Fluid Restriction, Renal Diet Discharge Activity: Return to Normal Activity Call your doctor if you observe: Fever of 101 or Higher, Shortness of breath, Swelling in the ankles - increased Home Medications: Medications to take at Discharge Clonazepam [Klonopin] 0.5 mg PO Q8H PRN PRN 12/17/17 gabapentin 300 mg capsule 300 mg PO BID cap 12/18/17 aspirin 81 mg tablet,delayed release 81 mg PO DAILY 04/08/18 Atorvastatin Calcium [Lipitor] 80 mg PO QHS 01/14/19 Citalopram Hydrobromide [Citalopram HBr] 20 mg PO QHS 01/14/19 Docusate Sodium [Colace] 100 mg PO DAILY 01/14/19 Levothyroxine [Synthroid] 137 mcg PO DAILY 01/14/19 Acetaminophen [Tylenol Tablet] 650 mg PO Q6H PRN PRN tablet 01/20/19 Furosemide [Lasix] 80 mg PO BID@1000,1800 #60 tablet 01/20/19 Insulin Detemir [Levemir FlexPen] 9 units SQ BID #0 01/20/19 Following Prescrptions Were Given to Patient: Furosemide [Lasix] 80 mg PO BID@1000,1800 #60 tablet Other Amb Orders: Basic Metabolic Profile (BMP) Location: Laboratory Primary Care Physician: Care Physician,No Primary [Primary Care Provider] - Please Follow Up With: Ebony pSain MD When: 2 weeks Please Follow Up With: Dee Dee Pineda DO When: 1-2 weeks Disposition: Home with Home Health Minutes spent on discharge:: 34 Patient Condition:: Fair Medical Necessity - Tobacco Use Smoking Status: Never smoker Tobacco Use: Non-smoker Meaningful Use Info Meaningful Use Diagnoses (Choose all that apply): CHF - CHF BILL/ARB ordered at discharge?: No Reason BILL/ARB not ordered?: Worsening renal dysfunctn Documented LVEF (%): 65 Code Visit Inpatient E&M: 66706 Disch Hosp
--- NOTE | 2019-01-20 15:15 | DS.PCM_ITS ---
Discharge Date and Diagnosis - Problem List Patient Problems: Active and Suspected Problems (Last Updated 12/23/18 @ 09:50 by Karime Mcrae) Acute on chronic anemia (Acute) Anemia (Acute) Date of Admission: 01/14/19 Date of Discharge: 01/20/19 - Primary Discharge Diagnosis Active and Suspected Problems (Last Updated 12/23/18 @ 09:50 by Karime Mcrae) Acute on chronic anemia (Acute) Anemia (Acute) 1. JAYLIN * improved overall * baseline cr around 3 * nephrology following * no urgent MANUFACTURING PLANT CONTROLLER at this time. * DW Dr. Xie, to continue with oral lasix for now, monitor creatinine, and await her audio technician, Dr. Pineda, to see 01/20 * DW Dr. Pineda today, and reviewed the case. OK to continue furosemide [address] Pineda will follow up patient as outpt. 2. Iron-deficiency anemia * stable * s/p transfusion of 2 units on 01/15 * iron 29, but ferritin elevated at 383 (if iron-deficient, should be <100) * suspect more anemia of chronic disease rather than iron-deficiency * c-scope normal and EGD showed gastropathy * monitor H/H 3. Difficult fistula access * history of fistular stenosis * difficulty accessing on 01/15 * Seen by Dr. Wagner, who states that fistula is fine but was likely accessed in the wrong spot. 4. Hyperkalemia * resolved s/p HD * monitor 5. HFpEF * compensated 6. Pneumonia ruled out: dc ctx. - Secondary Discharge Diagnosis Chronic Problems (Last Updated 12/23/18 @ 09:50 by Karime Mcrae) Ascites (Chronic) Nonrheumatic mitral valve regurgitation (Chronic) Atherosclerotic heart disease of [place] coronary artery without angina pectoris (Chronic) Chronic kidney disease, stage 4, severely decreased GFR (Chronic) under care of nephrology. CHF (congestive heart failure) (Chronic) Diabetes type I (Chronic) Dx : age 4 Last exacerbation : DKA : 2015 Hypoglycemic episode : 2016 ER visit : 2016 No data for review. Patient is ask to bring data to office for download. Discussed checking BG before meals and 2 hours post meal. Discussed carb counting meals and we reviewed how to carb count and also reading labels. We reviewd how to determine I/c ratios. Reviewed possibly using insulin pump in future. Is on arb. On statin. . Chronic kidney disease, stage 4, severely decreased GFR (Chronic) HTN (hypertension) (Chronic) Hyperlipidemia (Chronic) Under care of cardiology. Will need to update labs. Hypothyroidism (Chronic) Thyroid replacement d/cd although not sure why. Will need to check labs and determine why this is. Patient unable to answer. Diabetic polyneuropathy (Chronic) Asthma (Chronic) Charcot's joint of right foot (Chronic) Hospital Course and Treatment Imaging Results: Clinical Impression(s) from Imaging Studies Chest X-Ray 01/14/19 15:12 IMPRESSION: Bilateral diffuse airspace disease. Follow-up is recommended. Electronically Signed: Todd Zapien, at 15:38 EDT , Service support , Abdomen Ultrasound 01/15/19 05:55 IMPRESSION: 1. Mild fluid surrounding the liver margin with no evidence of large abdominal ascites. 2. Likely chronic renal changes of the right kidney with noted perinephric stranding, clinically correlate for underlying acute inflammation. 3. Limited view of the pancreas due to overlying bowel gas. Electronically Signed: Eric Gomez DO at 9:41 EDT , Service support , Chest X-Ray 01/16/19 05:55 IMPRESSION: Improved bilateral mid to lower lung airspace disease with continuing right small effusion. Electronically Signed: Eric Gomez DO at 8:39 EDT , Service support , [facility] general surgery Operations: None Procedures: Colonoscopy, EGD Summary of Care Provided: The patient is a 58 year old F with diffuse anasarca. Patient started on IV Lasix and then developed acute kidney injury. Seen by nephrology intervention patient was resumed back on oral Lasix, and 80 mg twice daily. Overall patient has done well and will continue with 80 mg of Lasix as outpatient. She will follow-up with Dr. Pineda as outpatient. Patient be going home with home health care. [] Patient Problems: Active and Suspected Problems (Last Updated 12/23/18 @ 09:50 by Karime Mcrae) Acute on chronic anemia (Acute) Anemia (Acute) - Physical Exam Vital Signs Temp Pulse Resp BP Pulse Ox 36.6 C 86 18 152/58 H 95 01/20/19 10:47 01/20/19 10:47 01/20/19 10:47 01/20/19 10:47 01/20/19 10:47 Oxygen Flow Rate (L/min) 2 Oxygen Delivery Method Room Air Weight: 78.3 kg Body Mass Index (BMI) 34.2 Finger Stick Blood Glucose 179 Intake and Output for Last 24 Hours 01/18/19 01/19/19 01/20/19 23:59 23:59 23:59 Intake Total 613.2 / 613.2 910 / 910 Output Total 1999 650 / 650 Balance 613.2 / 613.2 -1090 / -1090 -650 / -650 Laboratory Tests Past 24 Hrs 01/20/19 06:30 Sodium 141 Potassium 3.7 Chloride 105 Carbon Dioxide 29.0 Anion Gap 7 BUN 55 H Creatinine 3.22 H Estim Creat Clear Calc 23.54 Est GFR (MDRD) Af Amer 19 L Est GFR (MDRD) Non-Af 16 L BUN/Creatinine Ratio 17.1 Glucose 167 H Calcium 8.0 L POC Glucose 01/20/19 01/20/19 01/19/19 11:59 08:44 21:04 POC Glucose 164 H 168 H 174 H 01/19/19 16:18 POC Glucose 195 H Discharge Diet: 6 Cup Fluid Restriction, Renal Diet Discharge Activity: Return to Normal Activity Call your doctor if you observe: Fever of 101 or Higher, Shortness of breath, Swelling in the ankles - increased Home Medications: Medications to take at Discharge Clonazepam [Klonopin] 0.5 mg PO Q8H PRN PRN 12/17/17 gabapentin 300 mg capsule 300 mg PO BID cap 12/18/17 aspirin 81 mg tablet,delayed release 81 mg PO DAILY 04/08/18 Atorvastatin Calcium [Lipitor] 80 mg PO QHS 01/14/19 Citalopram Hydrobromide [Citalopram HBr] 20 mg PO QHS 01/14/19 Docusate Sodium [Colace] 100 mg PO DAILY 01/14/19 Levothyroxine [Synthroid] 137 mcg PO DAILY 01/14/19 Acetaminophen [Tylenol Tablet] 650 mg PO Q6H PRN PRN tablet 01/20/19 Furosemide [Lasix] 80 mg PO BID@1000,1800 #60 tablet 01/20/19 Insulin Detemir [Levemir FlexPen] 9 units SQ BID #0 01/20/19 Following Prescrptions Were Given to Patient: Furosemide [Lasix] 80 mg PO BID@1000,1800 #60 tablet Other Amb Orders: Basic Metabolic Profile (BMP) Location: Laboratory Primary Care Physician: Care Physician,No Primary [Primary Care Provider] - Please Follow Up With: Ebony Spain MD When: 2 weeks Please Follow Up With: Dee Dee Pineda DO When: 1-2 weeks Disposition: Home with Home Health Minutes spent on discharge:: 34 Patient Condition:: Fair Medical Necessity - Tobacco Use Smoking Status: Never smoker Tobacco Use: Non-smoker Meaningful Use Info Meaningful Use Diagnoses (Choose all that apply): CHF - CHF BILL/ARB ordered at discharge?: No Reason BILL/ARB not ordered?: Worsening renal dysfunctn Documented LVEF (%): 65 Code Visit Inpatient E&M: 36657 Disch Hosp
--- NOTE | 2019-01-20 15:30 | PCA ---
PT did not have a family doctor contacted [facility] Dr Spain nurse paper work was provided .
--- NOTE | 2019-01-20 15:50 | CASEMGMT ---
NABILA LEDEZMA followed up with patient regarding discharge planning. Patient would like [facility] and is agreeable to [facility]. Patient is not setup with PCP. Patient states she has been trying to get established with Dr. Jerez for weeks but has been unsuccessful. NABILA LEDEZMA provided list of additional PCPs in the area and patient agreeable to Dr. Cleaning. RN called Dr. Cleaning's office and was able to setup appt for 01/26/19 1230. Patient updated regarding scheduled appt and patient appreciative and thanked NABILA LEDEZMA. NABILA LEDEZMA updated [facility] that patient has appt with new PCP on 01/26/19.
[2019-01-20 16:01] VITALS: BP 152/61; PULSE 87; RESP 18; TEMP 36.3; O2SAT 97
--- NOTE | 2019-01-20 16:57 | CASEMGMT ---
Social Work Note Pt is discharging home today. JOVANNA placed a call to pt's CM at [facility] and updated her on discharge. JOVANNA faxed discharge paperwork to Sherry. Celeste Rose SWEEPER DRIVER, [employer]
--- NOTE | 2019-01-21 14:15 | CASEMGMT ---
NABILA LEDEZMA DC PHONE CALL DC DATE: 01/21/19 DC Disposition: Home with Home Health LACE/STRATA: 09/07 Intro role of CM to patient's daughter. Pt is with Home Health nurse. NABILA LEDEZMA let daughter know purpose of call and to reinforce with pt if there were questions re: instructions, f/u or prescriptions to feel free to ask HH nurse. Marta LEE RN AC
== END 2019-01-20 17:10 | disposition home or self-care (01) | DRG 682 ==
LOC: ED 15:23 → PCU 16:58 → ICU 01-15 08:46 → PCU 01-17 07:16 → ICU 01-17 11:39 → MS3 01-19 23:13
PROVIDERS: Anesthesiology; Family Medicine; Internal Medicine; Internal Medicine Nephrology; Student in an Organized Health Care Education/Training Program; Surgery; Admitting Provider Internal Medicine; Emergency Provider Emergency Medicine; Referring Provider Internal Medicine
PROC: 0DJD8ZZ Inspection of Lower Intestinal Tract, Via Natural or Artificial Opening Endoscopic (ICD-10-PCS; CPT 45378; principal; 2019-01-17 13:55)
DX: N17.9 Acute kidney failure, unspecified (principal); I50.33 Acute on chronic diastolic (congestive) heart failure; I13.0 Hypertensive heart and chronic kidney disease with heart failure and stage 1 through stage 4 chronic kidney disease, or unspecified chronic kidney disease; D63.8 Anemia in other chronic diseases classified elsewhere; E87.5 Hyperkalemia; E10.22 Type 1 diabetes mellitus with diabetic chronic kidney disease; N18.4 Chronic kidney disease, stage 4 (severe); I25.10 Atherosclerotic heart disease of native coronary artery without angina pectoris; I34.0 Nonrheumatic mitral (valve) insufficiency; E78.5 Hyperlipidemia, unspecified; E10.42 Type 1 diabetes mellitus with diabetic polyneuropathy; J45.909 Unspecified asthma, uncomplicated; Z79.4 Long term (current) use of insulin; I25.2 Old myocardial infarction; K31.9 Disease of stomach and duodenum, unspecified; K31.7 Polyp of stomach and duodenum; R09.02 Hypoxemia; E03.9 Hypothyroidism, unspecified; F32.9 Major depressive disorder, single episode, unspecified; R06.89 Other abnormalities of breathing
CPT/HCPCS: 36415; 71045; 71046; 76705; 80048; 80053; 80061; 80069; 81002; 82274; 82728; 82947; 82962; 83036; 83540; 83550; 83735; 83880; 84439; 84443; 84484; 85014; 85018; 85025; 85045; 85610; 85730; 86704; 86707; 86850; 86900; 86920; 86922; 87340; 87449; 87633; 87641; 88305; 88342; 90937; 93005; 93306; 94667; 94668; 97162; 97165; 97802; 99285; J1756; J7040; P9016; A4216; G0257; J0610; J1940; J2405

== ENCOUNTER → 2019-01-25 | Outpatient (CLI) | payer MEDICARE, SELFPAY ==
[2019-01-20 15:39] VITALS: BMI 34.7
[2019-01-25 12:17] LABS: ALB/GLOB Ratio 0.9 RATIO (0.9-2.4); AST(SGOT) 13 U/L (15-37); Alanine Aminotransfer ALT/SGPT 23 U/L (13-56); Albumin, Serum 2.8 g/dL (3.2-5.0); Alkaline Phosphatase 106 U/L (45-117); Anion Gap 6 (5-15); BUN 56 mg/dL (7-18); BUN/Creat Ratio 15.9 RATIO (10-20); Calcium,Total 8.4 mg/dL (8.5-10.1); Chloride 103 mmol/L (98-107); Creatinine, Serum 3.53 mg/dL (0.55-1.02); EST Glomerular Filtration Rate 14 mL/min (>60); Est Glom Filt Rate - Afr Amer 17 mL/min (>60); Globulin 3.2 g/dL (2.2-4.2); Glucose 102 mg/dL (74-106); Potassium 3.2 mmol/L (3.5-5.1); Sodium Level 141 mmol/L (136-145)
== END | disposition home or self-care (01) ==
LOC: LABSPEC 11:37
PROVIDERS: Family Provider Internal Medicine; PCP Internal Medicine; Referring Provider Internal Medicine Nephrology; Visit Provider Internal Medicine Nephrology
DX: N19 Unspecified kidney failure (principal)
CPT/HCPCS: 80053

== ENCOUNTER → 2019-02-01 | Outpatient (CLI) | payer MEDICARE, SELFPAY ==
[2019-02-01 13:06] VITALS: BMI 34.7
[2019-02-01 14:23] LABS: Anion Gap 10 (5-15); BUN 66 mg/dL (7-18); BUN/Creat Ratio 16.7 RATIO (10-20); Calcium,Total 8.6 mg/dL (8.5-10.1); Chloride 101 mmol/L (98-107); Creatinine, Serum 3.96 mg/dL (0.55-1.02); EST Glomerular Filtration Rate 12 mL/min (>60); Est Glom Filt Rate - Afr Amer 15 mL/min (>60); Glucose 155 mg/dL (74-106); Magnesium 2.1 mg/dL (1.6-2.6); Phosphorus 5.3 mg/dL (2.5-4.9); Sodium Level 143 mmol/L (136-145)
== END | disposition home or self-care (01) ==
PROVIDERS: Family Provider Internal Medicine; PCP Internal Medicine; Visit Provider Internal Medicine
DX: N18.4 Chronic kidney disease, stage 4 (severe) (principal)
CPT/HCPCS: 36415; 80048; 83735; 84100

== ENCOUNTER 2019-02-02 09:40 | Day surgery (SDC) | payer MEDICARE, SELFPAY ==
[2019-01-26 13:32] VITALS: BMI 34.7
[2019-02-01 08:29] VITALS: BMI 34.7
[2019-02-01 13:06] VITALS: BMI 34.7
--- NOTE | 2019-02-02 06:46 | HP.PCM_ITS ---
History and Physical Date of Admission: 02/02/19 Intake Vital Signs 02/01/19 Body Mass Index (BMI) 34.7 02/01/19 Height 4 ft 11 in 02/01/19 Weight: 172 lb 02/01/19 Body Mass Index (BMI) 34.7 02/01/19 Blood Pressure 139/78 H 02/01/19 Blood Pressure Location Rt brachial 02/01/19 Blood Pressure Position Sitting 02/01/19 Respiratory Rate 18 02/01/19 Pulse Rate 81 02/01/19 Pulse Source Monitor 02/01/19 Temperature 98.1 F 02/01/19 Temperature Source Oral 02/01/19 Pulse Ox 97 02/01/19 Oxygen Delivery Method room air Intake Visit Reasons: discuss fistulogram Chief Complaint: Est Care - Post [facility] admission Surgical Endoscopist Required: No Is patient in pain?: No Allergies mirtazapine [From Remeron] Allergy (Severe, Verified 02/01/19 13:06) Kidney failure prednisone Allergy (Unknown, Verified 02/01/19 13:06) Unknown prochlorperazine edisylate [From Compazine] Adverse Reaction (Verified 02/01/19 13:06) Other prochlorperazine maleate [From Compazine] Adverse Reaction (Verified 02/01/19 13:06) Other Medications Clonazepam [Klonopin] 0.5 mg PO Q8H PRN PRN 12/17/17 [History Confirmed 02/01/19] gabapentin 300 mg capsule 300 mg PO BID cap 12/18/17 [History Confirmed 02/01/19] aspirin 81 mg tablet,delayed release 81 mg PO DAILY 04/08/18 [History Confirmed 02/01/19] Atorvastatin Calcium [Lipitor] 80 mg PO QHS 01/14/19 [History Confirmed 02/01/19] Citalopram Hydrobromide [Citalopram HBr] 20 mg PO QHS 01/14/19 [History Confirmed 02/01/19] Docusate Sodium [Colace] 100 mg PO DAILY 01/14/19 [History Confirmed 02/01/19] Levothyroxine [Synthroid] 137 mcg PO DAILY 01/14/19 [History Confirmed 02/01/19] Acetaminophen [Tylenol Tablet] 650 mg PO Q6H PRN PRN tab 01/20/19 [Rx Confirmed 02/01/19] Furosemide [Lasix] 80 mg PO BID@1000,1800 #60 tab 01/20/19 [Rx Confirmed 02/01/19] Insulin Detemir [Levemir FlexPen] 9 units SQ BID #0 01/20/19 [Rx Confirmed 02/01/19] albuterol sulfate 0.63 mg/3 mL solution for nebulization 0.63 mg INHALATION Q4H PRN 01/26/19 [History Confirmed 02/01/19] albuterol sulfate HFA 90 mcg/actuation aerosol inhaler 2 puff INHALATION Q6H PRN 01/26/19 [History Confirmed 02/01/19] insulin glulisine (U- 100) 100 unit/mL subcutaneous solution 1 sliding scale dose SC USEASDIRECTD 01/26/19 [History Confirmed 02/01/19] [facility] Medical History Kidney failure (Chronic) Kidney disease (Chronic) Seasonal allergies (Chronic) Anemia (Chronic) Anxiety and depression (Chronic) Arthritis (Chronic) Bone fracture (Resolved) Recurrent UTI (Acute) H/O transfusion of whole blood (Acute) Breast lump (Acute) Cataracts, bilateral (Acute) GI problem (Chronic) Chronic headaches (Chronic) abnormal calcium level (Acute) Hives (Acute) Hormone deficiency (Acute) Hypoglycemia (Acute) Osteoporosis (Chronic) Vitamin deficiency (Chronic) Nonrheumatic mitral valve regurgitation (Chronic) History of non-ST elevation myocardial infarction (NSTEMI) (Acute) Atherosclerotic heart disease of [place] coronary artery without angina pectoris (Chronic) Diabetes type I (Chronic) Chronic kidney disease, stage 4, severely decreased GFR (Chronic) HTN (hypertension) (Chronic) Hyperlipidemia (Chronic) Hypothyroidism (Chronic) Diabetic polyneuropathy (Chronic) Asthma (Chronic) Charcot's joint of right foot (Chronic) History of endoscopy (Acute) Seizure (Acute) Vascular disease (Acute) Vision problem (Acute) Back problem (Chronic) Aortic valve disorder (Inactive) Pneumonia (Inactive) Surgical History History of colonoscopy (Acute) history fistulagram (Acute ~12/16/18) left arm fistula creation (Acute) H/O dilation and curettage (Resolved) H/O tubal ligation (Resolved) History of amputation of right great toe (Resolved) History of hand surgery (Resolved) Hx of cataract surgery (Resolved) Wrist fracture (Resolved) raquel removal r leg (Resolved) tibula/fibula surgery (Resolved) Family History Mother Arthritis Cancer Hormone deficiency Thyroid disorder Osteoporosis Skin cancer Father Arthritis Diabetes Heart disease Hypertension High cholesterol CVA (cerebral vascular accident) Social History Smoking Status: Never smoker alcohol intake: current substance use type: does not use what type of physical activity do you participate in: none HPI HPI HPI: MARLENY DIXON, is a 58 F who presents to the office today for HPI HPI Surgical H&P: Yes HPI: MARLENY DIXON, is a 58 F who presents to the office today for diminished flow within the fistula. Patient is not currently on dialysis however she was hospitalized recently and dialysis was initiated. Patient has not had dialysis since that time. Patient's last fistulogram was on December 16, 2018 which demonstrated venous stenosis of the upper limb which was treated with a 6 x 2 cutting balloon. ROS General General: Yes fatigue; no weight change, appetite, colon cancer, breast cancer or weakness HEENT HEENT: Yes eye surgery; no difficulty swallowing, eye injury, swollen glands or hoarseness Endo Endocrine: Yes thyroid disease and diabetes mellitus; no thyroid cancer, Hair loss, heat intolerance or cold intolerance Skin Skin: No rash or changing moles Breast Breast: No left breast lump, right breast lump, nipple discharge, breast pain, abnormal mammogram, abnormal US or breast enlargement Musc Musculoskeletal: Yes back problems and arthritis; no rheumatoid arthritis, gout or joint pain Cardio Cardiovascular: Yes murmur and high blood pressure; no pacemaker, heart disease, atrial fibrillation, heart attack, heart stent, palpitations, shortness of breat with exertion or chest pain Psych Psychiatric: Yes depression and anxiety; no hearing voices Resp Respiratory: No shortness of breath, No sleep apnea, No cough, No COPD, Yes asthma, No emphysema, No wheezing Gastro Gastrointestinal: No abdominal pain, No nausea or vomiting, No diarrhea, No constipation, No blood in stool, No acid reflux, No hemorrhoids, No ulcers, No gallbladder problem, No black,tarry stools Nain Hematologic: Yes blood thinners, No blood disorders, No bleeding, Yes anemia, No blood clots Neuro Neurologic: No weakness Exam Const General: cooperative, comfortable, no acute distress HENMT Head: normal to inspection Eyes General: appearance normal, both eyes and all related structures Neck Neck: normal visual inspection Neck mass: No Chest Breast Palpation: No nipple discharge Resp Effort & Inspection: normal respiratory effort Auscultation: clear to auscultation bilaterally Cardio Rate: regular rate Rhythm: regular rhythm Heart Sounds: murmur GI Inspection: normal to inspection Palpation: soft Auscultation: normal bowel sounds Skin General: no rashes or lesions noted Neuro General: no focal motor deficits Extrem Other: Left forearm loop fistula- good pulse, diminished thrill and bruit. Psych Appearance: grossly normal Affect: normal affect Assessment & Plan Problems 1. Problem with dialysis access, initial encounter T82.514E Plan Dr. Wagner will plan to perform a left forearm fistulogram via ulnar basilic vein retrograde with flow with carbon dioxide. Procedure details, risks and benefits have been explained to the patient. Patient has had the opportunity to ask and have questions answered. Patient verbally understands and agrees with the plan. We will proceed with the proposed procedure tomorrow. Coding Level of Care Code Off vis,est,level 3 Diagnoses Problem with dialysis access, initial encounter T82.211Z ??Encounter type: initial encounter 02/01/19 [id number] <Electronically signed by Lisa Clay PA-C> Date Lisa Clay PA-C I have re-examined the patient. There are no clinical changes since date of exam.
[2019-02-02 10:05] LABS: Bedside Glucose 98 mg/dL (70-110)
--- NOTE | 2019-02-02 11:29 | OP.PCM_ITS ---
Problem List (1) Problem with dialysis access Status: Acute Qualifiers: Encounter type: initial encounter Qualified Code(s): T82.898A - Other specified complication of vascular prosthetic devices, implants and grafts, initial encounter Report of Operation Date of Procedure: 02/02/19 Pre-Operative Diagnosis: Problem with dialysis access Post-Operative Diagnosis: Diffuse areas of stenosis of transposed left forearm looped basilic vein to brachial artery AV hemodialysis fistula Surgery/Procedure Performed:: Carbon dioxide left upper extremity fistulogram with 7 x 20 mm conquest angioplasty Description of Surgical Findings:: Timeout and informed consent was obtained. 58-year-old female was taken to the special procedure lab placed on the table. 50 mcg of fentanyl and 1 mg of Versed were given significant sedation. The left extremity was sterilely prepped and draped. Ultrasound was used to identify the basilic vein close to the antecubital space along the ulnar aspect of the arm. Under ultrasound guidance 2% lidocaine was instilled. A micropuncture needle was inserted retrograde with flow. Micropuncture wire inserted. 6 [place]ian short sheath was inserted. An 035 Glidewire was used to place a 4 [place]ambian glide cath into the brachial artery proximal to the anastomosis. Using carbon dioxide fistulogram was obtained. This demonstrated moderate stenosis at the arterial anastomosis within the proximal limb of the fistula and with the apex outflow limb of the fistula. Subsequently a 7 x 20 m conquest balloon was inserted and balloon angioplasty was performed of 3 different areas. Repetitive insufflations were performed up to 30 josephine of pressure. They were held for 2 minutes. She tolerated the procedure well. At the completion the 4 [place]ambian glide catheter was reinserted and a final fissure gram was obtained demonstrating improvement in the areas of stenosis though with some venous recoil. Clinically however the fistula had a very strong pulse thrill and bruit improved over prior to the procedure. The sheath was removed U suture 4-0 nylon was placed blood loss was minimal no apparent convocation she tolerated it well Fistulogram demonstrates a transposed looped forearm basilic vein to brachial artery AV fistula. There is moderate stenosis at close to the arterial anastomosis within the afferent limb of the fistula and close to the apex of the efferent limb of the fistula subsequent to angioplasty there is improvement at all locations. Aguila Wagner M.D., F.A.C.S. Type of Anesthesia:: IV Sedation
== END 2019-02-02 12:53 | disposition home or self-care (01) ==
PROVIDERS: Family Provider Internal Medicine; PCP Internal Medicine; Referring Provider Surgery; Visit Provider Surgery
DX: T82.858A Stenosis of other vascular prosthetic devices, implants and grafts, initial encounter (principal); I34.0 Nonrheumatic mitral (valve) insufficiency; I25.2 Old myocardial infarction; I25.10 Atherosclerotic heart disease of native coronary artery without angina pectoris; E10.22 Type 1 diabetes mellitus with diabetic chronic kidney disease; I13.0 Hypertensive heart and chronic kidney disease with heart failure and stage 1 through stage 4 chronic kidney disease, or unspecified chronic kidney disease; N18.4 Chronic kidney disease, stage 4 (severe); I50.9 Heart failure, unspecified; E78.5 Hyperlipidemia, unspecified; E03.9 Hypothyroidism, unspecified; E10.42 Type 1 diabetes mellitus with diabetic polyneuropathy; J45.909 Unspecified asthma, uncomplicated; E10.610 Type 1 diabetes mellitus with diabetic neuropathic arthropathy; F41.9 Anxiety disorder, unspecified; F32.9 Major depressive disorder, single episode, unspecified; M19.90 Unspecified osteoarthritis, unspecified site; M81.0 Age-related osteoporosis without current pathological fracture; Z86.79 Personal history of other diseases of the circulatory system; Z87.440 Personal history of urinary (tract) infections; Z87.01 Personal history of pneumonia (recurrent); Z86.2 Personal history of diseases of the blood and blood-forming organs and certain disorders involving the immune mechanism; Z92.89 Personal history of other medical treatment; Z79.4 Long term (current) use of insulin; Z79.82 Long term (current) use of aspirin; Z79.899 Other long term (current) drug therapy
CPT/HCPCS: 36902; 76937; 82962; 99152; 99153; Q9967; C1725; C1769

== ENCOUNTER 2019-02-17 16:50 | Emergency (ER) | payer MEDICARE, SELFPAY ==
[2019-02-01 13:06] VITALS: BMI 34.7
[2019-02-17 16:54] VITALS: BP 177/84; PULSE 88; RESP 18; TEMP 36.8; O2SAT 97
[2019-02-17 18:05] LABS: Absolute Lymphocyte Count 1.77 X10^3/ul (0.83-4.51); Absolute Neutrophil Count 2.9 X10^3/uL (2.0-7.7); Basophil# 0.07 X10^3/uL; Basophil% 1.2 % (0-1); Eosinophil# 0.38 X10^3/uL; Eosinophils% 6.5 % (0-5); Hematocrit 28.4 % (37-47); Hemoglobin 9.1 g/dl (12.0-15.0); Lymphocyte # 1.77 X10^3/ul (4.0); Lymphocyte % 30.1 % (19-41); Mean Corpuscular Hgb 31.1 pg (27.0-32.0); Mean Corpuscular Volume 96.9 fL (81-99); Mean Platelet Vol. 10.9 fl (6.2-12.0); Monocyte# 0.74 X10^3/uL; Monocyte% 12.6 % (0-10); Neutrophil # 2.91 X10^3/uL (2.7-7.7); Neutrophil % 49.4 % (47-70); Platelet Count 253 K/mm3 (150-450); RBC Distribution Width CV 13.5 % (11.6-14.6); RBC Distribution Width SD 47.2 fl (35.1-43.9); Red Blood Count 2.93 M/mm3 (4.2-5.4); White Blood Count 5.9 K/mm3 (4.4-11.0)
[2019-02-17 18:07] LABS: POSITIVE COUNT NO; POSITIVE DIFFERENTIAL NO; POSITIVE MORPHOLOGY NO
[2019-02-17 18:29] VITALS: BP 102/49; BP 106/47; BP 118/50; PULSE 78; PULSE 80; PULSE 83
[2019-02-17 19:01] LABS: Bedside Glucose 60 mg/dL (70-110)
[2019-02-17 19:06] VITALS: BP 121/51
[2019-02-17 20:01] LABS: Bedside Glucose 152 mg/dL (70-110)
--- NOTE | 2019-02-17 20:07 | ED.DCSUM_ITS ---
- ER Visit Summary Date of Service: 02/17/19 Chief Complaint: Bleeding AV fistula History of Present Illness: The patient is a 58 F who was at dialysis today. They move the needle she began to have bleeding from the fistula. Reportedly has been going on about 4 hours and they have been holding pressure trying to get it to stop. Dr. Wagner placed the fistula in 2017. She notes a recent fistulogram. Patient denies any new symptoms in her hand Physical Examination: Afebrile vital signs stable Gen: Well-nourished well-developed Head: Normocephalic atraumatic Eyes: Perrl EOMI ENT: TMs clear no rhinorrhea moist mucous membranes Neck: Supple no lymphadenopathy no JVD nontender CVS: Regular rate rhythm no murmurs normal S1-S2 Respiratory: No distress clear to auscultation bilaterally chest nontender Abdomen: Soft nontender nondistended normal bowel sounds no masses Back: Nontender Extremity: There is a fistula in the left forearm. There is a thrill. There is a small hole in the skin overlying the fistula through which blood sprays when pressure is not applied. Skin: Normal color no rash Neuro: alert orientated ?3 CN II-XII intact normal strength sensation reflexes gait cerebellar Psych: Normal affect normal mood Test Results: Hemoglobin 9.1 Emergency Department Course and Treatment: Pressure was applied to the wound but not to the point where the thrill was lost. Direct pressure was applied for approximately 30 minutes. No success in stopping the bleeding. Therefore a 5-0 [id number] Ethilon stitch was placed. This closed the whole. No further bleeding was observed. The fistula still had a thrill. Gelfoam was applied over the Ethilon stitch and then a Ghassan wrap lightly applied over that. She observed in the department. We performed orthostatics but the patient felt poorly when standing was noted by nursing that her blood pressure dropped 20 points but her heart rate stayed about the same. Shortly thereafter the patient relates to us that she has not had anything to eat and she is a diabetic and we checked her blood sugar and was low. We have since that her and her blood sugar is now elevated and she is feeling much better. She is able to stand and would like to be discharged home. I did speak with Dr. Contreras regarding this case. She will call the office tomorrow in follow-up. Impression: 1. AV fistula complication 2. Diabetic hypoglycemia This note was generated with [employer] dictation software. It may contain incorrect words, spelling, and punctuation that were not noted in review of the chart prior to signing ED Disposition - Plan for ED Patient: Disposition: Home or Assisted Living Instructions: ED [facility] Dialysis Fistula Bleeding Referrals: Aguila Wagner MD [STAFF PHYSICIAN] - 3-5 Days
[2019-02-17 20:23] VITALS: BP 103/58; PULSE 81; RESP 16; O2SAT 96
== END 2019-02-17 20:23 | disposition home or self-care (01) ==
PROVIDERS: Emergency Provider Emergency Medicine; Family Provider Internal Medicine; PCP Internal Medicine
DX: T82.838A Hemorrhage due to vascular prosthetic devices, implants and grafts, initial encounter (principal); E11.649 Type 2 diabetes mellitus with hypoglycemia without coma; I25.10 Atherosclerotic heart disease of native coronary artery without angina pectoris; E11.22 Type 2 diabetes mellitus with diabetic chronic kidney disease; I13.0 Hypertensive heart and chronic kidney disease with heart failure and stage 1 through stage 4 chronic kidney disease, or unspecified chronic kidney disease; N18.9 Chronic kidney disease, unspecified; I50.9 Heart failure, unspecified; E78.00 Pure hypercholesterolemia, unspecified; E03.9 Hypothyroidism, unspecified; Z79.82 Long term (current) use of aspirin; Z79.4 Long term (current) use of insulin; Z79.899 Other long term (current) drug therapy
CPT/HCPCS: 82962; 85025; 99284

== ENCOUNTER → 2019-03-15 | Outpatient (CLI) | payer MEDICARE, SELFPAY ==
[2019-01-26 13:32] VITALS: BMI 34.7
== END | disposition home or self-care (01) ==
LOC: SL 20:26
PROVIDERS: Family Provider Internal Medicine; PCP Internal Medicine; Referring Provider Internal Medicine; Visit Provider Internal Medicine
DX: G47.30 Sleep apnea, unspecified (principal)
CPT/HCPCS: 95811

== ENCOUNTER → 2019-05-11 | Outpatient (CLI) | payer MEDICARE, SELFPAY ==
--- NOTE | 2019-05-11 15:06 | PFTCOMP_ITS ---
COMPLETE PULMONARY FUNCTION TEST INTERPRETATION Brief HPI: Patient is a 58 year old female, currently under the care of Dianne Poole, who presents to [facility] for complete pulmonary function tests secondary to diagnosis of asthma. Respiratory therapist reports good effort and reproducible results. Interpretation: Forced expiration spirometry shows no large airways obstructive ventilatory defect with an FEV1 of 74% predicted. There is no significant bronchodilator res ponse by strict ATS criteria. Spirograms are of good quality and plateau normally. The respiratory flow volume loop shows a normal pattern. Lung volumes by body plethysmography show a slightly reduced total lung capacity at 3.12 L, 76% predicted. All other lung volumes are reduced symmetrically. Diffusion capacity by carbon monoxide is at the lower limit of normal at 64% predicted. The airway resistance is normal. No previous pulmonary function tests were available for review. Impression: Mild restrictive ventilatory defect with a symmetric reduction diffusing capacity. No previous testing available for comparison.
== END | disposition home or self-care (01) ==
LOC: PSN 12:40
PROVIDERS: Family Provider Internal Medicine; PCP Internal Medicine; Referring Provider Nurse Practitioner Acute Care; Visit Provider Nurse Practitioner Acute Care
DX: J45.909 Unspecified asthma, uncomplicated (principal)
CPT/HCPCS: 94060; 94726; 94729

== ENCOUNTER → 2019-05-30 | Outpatient (CLI) | payer MEDICARE, SELFPAY ==
[2019-05-27 15:13] VITALS: BMI 28.5
== END | disposition home or self-care (01) ==
LOC: SL 14:47
PROVIDERS: Family Provider Internal Medicine; PCP Internal Medicine; Referring Provider Nurse Practitioner Acute Care; Visit Provider Nurse Practitioner Acute Care
DX: G47.33 Obstructive sleep apnea (adult) (pediatric) (principal)

== ENCOUNTER → 2019-06-01 | Outpatient (CLI) | payer MEDICARE, SELFPAY ==
[2019-06-01 13:49] VITALS: BMI 28.5
--- NOTE | 2019-06-01 14:45 | RAD_ITS ---
STUDY: X-RAY - LEFT SHOULDER REASON FOR EXAM: Female, 58 years old. Pain after a fall TECHNIQUE: 4 view(s) of the shoulder. COMPARISON: None. FINDINGS: There is mild degenerative arthrosis of the glenohumeral articulation. There is degenerative arthrosis of the acromioclavicular joint without inferior osseous spur formation. Normal acromion. Normal humeral head and visualized proximal humerus. The soft tissue structures are unremarkable. Normal visualized pulmonary apex. RAD/Shoulder min 2 Views IMPRESSION: Degenerative arthrosis Electronically Signed: Paul Campoverde MD at 15:16 EDT , Service support ,
== END | disposition home or self-care (01) ==
LOC: RAD 14:43
PROVIDERS: Family Provider Internal Medicine; PCP Internal Medicine; Referring Provider Internal Medicine; Visit Provider Internal Medicine
DX: M25.512 Pain in left shoulder (principal)
CPT/HCPCS: 73030

== ENCOUNTER 2019-10-02 06:14 | Emergency (ER) | payer MEDICARE, SELFPAY ==
[2019-09-12 16:13] VITALS: BMI 28.0
[2019-10-02 06:15] VITALS: BP 149/65; PULSE 96; RESP 16; TEMP 37.3; O2SAT 97; BMI 30.9
--- NOTE | 2019-10-02 07:08 | RAD_ITS ---
STUDY: X-RAY CHEST REASON FOR EXAM: Female, 58 years old. cough TECHNIQUE: Single AP portable view of the chest. COMPARISON: 01/16/2019 FINDINGS: Subsegmental atelectases are noted in the right and left lung bases. There is no demonstrated pleural abnormality. Normal size heart. Normal mediastinum and donato. Normal visualized pulmonary arteries. Normal visualized aortic arch and descending thoracic aorta. Normal visualized thoracic spine. There is degenerative osteoarthritis of the bilateral shoulders. There is no demonstrated abnormality of the visualized soft tissue structures of the upper abdomen. RAD/Chest 1 View (Portable) IMPRESSION: Degenerative changes, as described above. No demonstrated acute cardiopulmonary process. Electronically Signed: Leanne Liu, at 8:17 EST Tel , Service support ,
--- NOTE | 2019-10-02 07:09 | EKG12_ITS ---
Test Reason : DYSRHYTHMIA Blood Pressure : / mmHG Vent. Rate : 097 BPM Atrial Rate : 097 BPM P-R Int : 122 ms QRS Dur : 084 ms QT Int : 350 ms P-R-T Axes : 069 -06 045 degrees QTc Int : 444 ms Normal sinus rhythm Nonspecific ST abnormality Abnormal ECG Confirmed by JENNYFER SARKAR, JORDAN ([id number]), food editor SALOME [place] ([id number]) on 10/04/2019 9:28:41 AM Referred By: Confirmed By:JORDAN BURGER MD
--- NOTE | 2019-10-02 07:13 | ED.VIS.GEN ---
History of Present Illness Chief Complaint: General Illness Informant: Patient Onset: Today Narrative: Patient presents the emergency department stating she does not feel well. She missed dialysis yesterday due to fatigue and myalgias. She has nasal congestion and a cough. This morning she experienced vomiting and felt poorly and wanted to come to the emergency department. 2 weeks ago she had vomiting diarrhea and recovered from that. She denies any definitive fever. Past Medical History - Allergies and Home Meds Allergies/Adverse Reactions: Allergies mirtazapine [From Remeron] Allergy (Severe, Verified 10/02/19 06:23) Kidney failure methadone Allergy (Intermediate, Verified 10/02/19 06:23) Rash prednisone Allergy (Unknown, Verified 10/02/19 06:23) Unknown prochlorperazine edisylate [From Compazine] Adverse Reaction (Verified 10/02/19 06:23) Other tarditive dyskinesia prochlorperazine maleate [From Compazine] Adverse Reaction (Verified 10/02/19 06:23) Other Primary Care Physician: Hyun Cleaning MD [Primary Care Provider] - Surgical History: dilatation and curettage, - Smoking Status: Never smoker - Family History Maternal Family History: Family History (Last Reviewed 07/13/19 @ 12:39 by Corina Jackman) Mother Arthritis Cancer Hormone deficiency Thyroid disorder Osteoporosis Skin cancer Father Arthritis Diabetes Heart disease Hypertension High cholesterol CVA (cerebral vascular accident) Family History: Reports: Cancer - lung, melanoma Paternal Family History: Family History (Last Reviewed 07/13/19 @ 12:39 by Corina Jackman) Mother Arthritis Cancer Hormone deficiency Thyroid disorder Osteoporosis Skin cancer Father Arthritis Diabetes Heart disease Hypertension High cholesterol CVA (cerebral vascular accident) Family History: Reports: Diabetes Additional Family History: P. uncle with diabetes Review of Systems General: Reports: Chills, Malaise. Denies: Fever, Sweats Eyes: Denies: Visual changes - bilaterally, Diplopia ENT: Reports: Rhinorrhea. Denies: Bilateral ear pain, Left ear pain, Right ear pain, Sore throat Cardiovascular: Denies: Chest pain, Palpitations Respiratory: Reports: Cough. Denies: Dyspnea, Dyspnea on exertion Gastrointestinal: Reports: Nausea, Vomiting. Denies: Abdominal pain, Diarrhea, Melena, Hematochezia Genitourinary: Denies: Dysuria, Hematuria, Frequency Musculoskeletal: Denies: Myalgias, Arthralgias, Neck pain, Back pain, Swelling, Extremity Pain Skin: Denies: Rash, Wounds Neurological: Denies: Headache, Weakness, Numbness Psych: Denies: Depression, Anxiety, Suicidal thoughts, Suicidal ideations Endocrine: Denies: Polyuria, Polydipsia, Heat intolerance, Cold intolerance Hematologic: Denies: Easy bruising, Easy bleeding, Lymphadenopathy Allergy: Denies: Uticaria, Swelling of the mouth, Swelling of the tongue Physical Exam Vital Signs/Narrative: Vital Signs Temp Pulse Resp BP Pulse Ox 10/02/19 06:15 99.1 F 96 16 149/65 H 97 Inital Vital Signs reviewed: Yes General: Well nourished, Well developed, No Acute Distress Head: Normocephalic, Atraumatic Eyes: Perrl, EOMI ENT: Moist mucous membranes, Nasal congestion Neck: Supple, Nontender Cardiovascular: Regular rate, Regular rhythm, No murmurs Respiratory: No distress, CTA bilaterally, Chest nontender Abdomen: Soft, Nontender, Nondistended, Normal bowel sounds Back: Nontender, Normal Inspection Extremities: Nontender, No edema Skin: Normal color, No rash Neurological: Alert, Oriented x3, Cranial nerves II-XII grossly intact, Normal Strength, Normal Sensation Psychological: Normal affect, Normal Mood Diagnostic/Tx/Re-eval - EKG Initial EKG Interpretation: Sinus Rhythm, Non-Specific ST Changes, - - Heart rate is 97 - Medical Decision Making Chest x-ray was negative for infiltrate. Orthostatics are negative. Basic blood work showed a creatinine of 4-1/2. Potassium was 5. RSV and influenza were negative. Patient received Tylenol. I believe the patient is safe for discharge. She most likely has a viral respiratory illness. She states she should be able to get dialysis today as she missed yesterday. ED Disposition - Plan for ED Patient: Disposition: Home or Assisted Living Diagnosis: Viral respiratory illness Instructions: URI, Viral, No Abx (Adult) Referrals: Hyun Cleaning MD [Primary Care Provider] - 3-5 Days
[2019-10-02] MEDS: Acetaminophen 500 MG Tablet 1000 MG PO (07:41)
[2019-10-02] MEDS: Ondansetron 4 MG/2 ML Vial IV (07:42)
[2019-10-02 08:05] VITALS: BP 130/66; PULSE 92; RESP 24; O2SAT 93
[2019-10-02 08:09] LABS: Absolute Lymphocyte Count 0.59 X10^3/uL (0.83-4.51); Absolute Neutrophil Count 8.6 X10^3/uL (2.0-7.7); Basophil# 0.06 X10^3/uL; Basophil% 0.6 % (0-1); Differential Indicated SCAN CRITERIA MET; Eosinophil# 0.19 X10^3/uL; Eosinophils% 1.9 % (0-5); Hematocrit 34.3 % (37-47); Hemoglobin 11.1 g/dL (12.0-15.0); Lymphocyte # 0.59 X10^3/ul (4.0); Lymphocyte % 5.8 % (19-41); Mean Corp Hgb Conc 32.4 g/dL (32-36); Mean Corpuscular Hgb 31.4 pg (27.0-32.0); Mean Corpuscular Volume 97.2 fL (81-99); Mean Platelet Vol. 11.5 fl (6.2-12.0); Monocyte# 0.72 X10^3/uL; NRBC Flagged by Analyzer 0 % (0-5); Neutrophil # 8.62 X10^3/uL (2.7-7.7); Neutrophil % 84.1 % (47-70); POSITIVE DIFFERENTIAL YES; Platelet Count 183 K/mm3 (150-450); RBC Distribution Width SD 46.2 fl (35.1-43.9); Red Blood Count 3.53 M/mm3 (4.2-5.4); White Blood Count 10.2 K/mm3 (4.4-11.0)
[2019-10-02 08:17] LABS: International Normalized Ratio 1.1; Prothrombin Time (Protime)PT. 14.1 SECONDS (11.7-14.9)
[2019-10-02 08:18] LABS: Partial Thromboplast Time 35.6 Seconds (24.1-36.2)
[2019-10-02 08:25] LABS: ALB/GLOB Ratio 0.9 RATIO (0.9-2.4); AST(SGOT) 12 U/L (15-37); Alanine Aminotransfer ALT/SGPT 31 U/L (13-56); Albumin, Serum 3.3 g/dL (3.2-5.0); Alkaline Phosphatase 130 U/L (45-117); Anion Gap 6 (5-15); BUN 54 mg/dL (7-18); BUN/Creat Ratio 12.5 RATIO (10-20); Calcium,Total 9.1 mg/dL (8.5-10.1); Chloride 101 mmol/L (98-107); Creatinine, Serum 4.31 mg/dL (0.55-1.02); EST Glomerular Filtration Rate 11 mL/min (>60); Est Glom Filt Rate - Afr Amer 14 mL/min (>60); Estimated Creatinine Clearance 15.63 ml/min; Globulin 3.5 g/dL (2.2-4.2); Glucose 356 mg/dL (74-106); Lipase 81 U/L (73-393); Protein, Total 6.8 g/dL (6.4-8.2); Sodium Level 137 mmol/L (136-145)
[2019-10-02 08:35] LABS: Platelet Estimate ADEQUATE (ADEQ); Red Cell Morphology NORM C+C NORMAL (NORM C&C)
[2019-10-02 10:09] VITALS: BP 114/55; PULSE 78; RESP 16; O2SAT 99
== END 2019-10-02 10:11 | disposition home or self-care (01) ==
PROVIDERS: Emergency Provider Emergency Medicine; Family Provider Internal Medicine; PCP Internal Medicine
DX: J98.9 Respiratory disorder, unspecified (principal); B34.9 Viral infection, unspecified; R11.2 Nausea with vomiting, unspecified; R05 Cough; R94.31 Abnormal electrocardiogram [ECG] [EKG]; Z99.2 Dependence on renal dialysis; Z79.82 Long term (current) use of aspirin; Z79.4 Long term (current) use of insulin; Z79.899 Other long term (current) drug therapy
CPT/HCPCS: 71045; 80053; 83690; 85025; 85610; 85730; 87804; 87807; 93005; 96374; 99285; A4216; J2405

== ENCOUNTER 2019-11-05 10:59 | Inpatient (IN) | payer MEDICARE, MEDICAID, SELFPAY ==
[2019-11-05] VITALS (14 sets, daily range): BP systolic 115–135; BP diastolic 54–68; PULSE 85–96; RESP 12–20; TEMP 36.7–37.1; O2SAT 89–99; BMI 30.6; BMI 29.2; BMI 65.6
--- NOTE | 2019-11-05 11:35 | EKG12_ITS ---
Test Reason : Blood Pressure : / mmHG Vent. Rate : 093 BPM Atrial Rate : 093 BPM P-R Int : 112 ms QRS Dur : 092 ms QT Int : 382 ms P-R-T Axes : 029 010 056 degrees QTc Int : 474 ms Normal sinus rhythm Normal ECG Confirmed by JENNYFER SARKAR, JORDAN ([id number]), primer expeditor and drier SALOME MA ([id number]) on 11/08/2019 8:28:47 AM Referred By: ARIANNE Confirmed By:JORDAN BURGER MD
--- NOTE | 2019-11-05 11:36 | RAD_ITS ---
STUDY: X-RAY CHEST REASON FOR EXAM: Female, 58 years old. chest pain x several days, dizziness TECHNIQUE: Frontal and lateral views of the chest. COMPARISON: October 02, 2019 FINDINGS: There are lower lung interstitial increased opacities There is no demonstrated pleural abnormality. There is mild cardiac enlargement. Normal mediastinum and donato. Normal visualized pulmonary arteries. Normal visualized aortic arch and descending thoracic aorta. Normal visualized thoracic spine. Normal visualized ribs, clavicles, and shoulders. . There is gaseous distention of the colon in the upper abdomen. RAD/Chest PA and Lateral IMPRESSION: Lower lung edema or infiltrates. Electronically Signed: Dallas Armas MD at 12:21 EST , Service support ,
--- NOTE | 2019-11-05 11:38 | ED.VIS.CHEST ---
History of Present Illness Chief Complaint: Chest Pain Informant: Patient Onset: Days - 3 Activity at onset: - - grad onset Timing: Continuous Quality: Heaviness Location: Substernal - w/ radiation into right upper extremity Current Severity: Moderate Maximum Severity: Moderate Worsened By: Nothing. Not Worsened By: Breathing, Coughing Relieved By: Nothing Narrative: Patient has had chest pain or shortness of breath for the last 3 days. The chest discomfort has not gone away. The breathing issues she notices mostly when she lies down. She does not exert herself very much, but what she is doing is not making her chest discomfort worse or given her shortness of breath. She denies any swelling in her legs. She has chronic renal failure and was told she had congestive heart failure before. She denies any known history of CAD. No recent history of hospitalization or travel. She did have a cold/bronchitis recently, she feels like she is over that now, she has a history of interstitial lung disease and was having some shortness of breath with a cold, it was mostly wheezing. She was put on prednisone. She has done with that. She feels like this dyspnea is not wheezing or the same as her CILD. - Past Medical History (1) Anemia Status: Chronic (2) Cataracts, bilateral Status: Chronic (3) Diabetic nephropathy associated with type 1 diabetes mellitus Status: Chronic (4) History of non-ST elevation myocardial infarction (NSTEMI) Status: Chronic (5) Hypoglycemia Status: Suspected (6) Recurrent UTI Status: Chronic (7) Anemia Status: Chronic (8) Anxiety and depression Status: Chronic (9) Arthritis Status: Chronic (10) Asthma Status: Chronic (11) Atherosclerotic heart disease of [place] coronary artery without angina pectoris Status: Chronic (12) CHF (congestive heart failure) Status: Chronic (13) Chronic headaches Status: Chronic (14) Diabetic polyneuropathy Status: Chronic (15) End-stage renal disease on hemodialysis Status: Chronic (16) HTN (hypertension) Status: Chronic (17) Hyperlipidemia Status: Chronic Comment: Under care of cardiology. Will need to update labs. (18) Hypothyroidism Status: Chronic Comment: Thyroid replacement d/cd although not sure why. Will need to check labs and determine why this is. Patient unable to answer. (19) Nonrheumatic mitral valve regurgitation Status: Chronic (20) DEYA (obstructive sleep apnea) Status: Chronic (21) Osteoporosis Status: Chronic Past Medical History - Allergies and Home Meds Allergies/Adverse Reactions: Allergies mirtazapine [From Remeron] Allergy (Severe, Verified 11/05/19 11:03) Kidney failure methadone Allergy (Intermediate, Verified 11/05/19 11:03) Rash prochlorperazine edisylate [From Compazine] Adverse Reaction (Verified 11/05/19 11:03) Other tarditive dyskinesia prochlorperazine maleate [From Compazine] Adverse Reaction (Verified 11/05/19 11:03) Other Primary Care Physician: Hyun Cleaning MD [Primary Care Provider] - Doctors: Mike pulmonology Surgical History: dilatation and curettage, - - SIRENA CHAVEZ Lives: Alone Smoking Status: Never smoker - Family History Maternal Family History: Family History (Last Reviewed 07/13/19 @ 12:39 by Corina Jackman) Mother Arthritis Cancer Hormone deficiency Thyroid disorder Osteoporosis Skin cancer Father Arthritis Diabetes Heart disease Hypertension High cholesterol CVA (cerebral vascular accident) Family History: Reports: Cancer - lung, melanoma Paternal Family History: Family History (Last Reviewed 07/13/19 @ 12:39 by Corina Jackman) Mother Arthritis Cancer Hormone deficiency Thyroid disorder Osteoporosis Skin cancer Father Arthritis Diabetes Heart disease Hypertension High cholesterol CVA (cerebral vascular accident) Family History: Reports: Diabetes Additional Family History: P. uncle with diabetes Review of Systems General: Denies: Chills, Fever, Sweats Eyes: Denies: Visual changes - bilaterally, Diplopia ENT: Denies: Rhinorrhea, Sore throat Cardiovascular: Reports: Chest pain. Denies: Palpitations, Heart racing Respiratory: Reports: Dyspnea, Orthopnea. Denies: Cough, Sputum, Dyspnea on exertion Gastrointestinal: Reports: Nausea. Denies: Abdominal pain, Vomiting, Diarrhea, Melena, Hematochezia Genitourinary: Denies: Dysuria, Hematuria, Frequency Musculoskeletal: Denies: Back pain, Swelling, Extremity Pain Skin: Denies: Rash, Wounds Neurological: Denies: Headache, Weakness, Numbness Physical Exam Vital Signs/Narrative: Vital Signs Temp Pulse Resp BP Pulse Ox 11/05/19 11:01 98.7 F 96 18 131/61 H 89 Inital Vital Signs reviewed: Yes General: Well nourished, Well developed, No Acute Distress Head: Normocephalic, Atraumatic Eyes: Perrl, EOMI ENT: Moist mucous membranes, No rhinorrhea Neck: Supple, Nontender, No JVD Cardiovascular: Regular rate, Regular rhythm, No murmurs Respiratory: No distress, CTA bilaterally, Chest nontender Abdomen: Soft, Nontender, Nondistended, Normal bowel sounds Back: Nontender, Normal Inspection Extremities: Nontender, No edema Skin: Normal color, No rash, No Trauma Neurological: Alert, Oriented x3, Cranial nerves II-XII grossly intact, Normal Strength, Normal Sensation Psychological: Normal affect, Normal Mood Diagnostic/Tx/Re-eval Impressions Chest X-Ray 11/05/19 11:36 IMPRESSION: Lower lung edema or infiltrates. Electronically Signed: Dallas Armas MD at 12:21 EST , Service support , 11/05/19 11:36 Chest PA and Lateral [RAD] Stat Laboratory Results 11/05/19 11/05/19 11:44 11:44 WBC 10.8 RBC 3.27 L Hgb 10.5 L Hct 32.3 L MCV 98.8 MCH 32.1 H MCHC 32.5 RDW Std Deviation 52.9 H RDW Coeff of Abdoul 15.3 H Plt Count 235 MPV 11.5 Immature Gran % (Auto) 0.600 Neut % (Auto) 80.4 H Lymph % (Auto) 7.4 L [place] % (Auto) 8.1 Eos % (Auto) 2.8 Baso % (Auto) 0.7 Absolute Neuts (auto) 8.7 H Absolute Lymphs (auto) 0.80 L Nucleated RBC % 0 Sodium 136 Potassium 4.6 Chloride 99 Carbon Dioxide 32.0 Anion Gap 5 BUN 40 H Creatinine 3.94 H Estim Creat Clear Calc 16.88 Est GFR (MDRD) Af Amer 15 L Est GFR (MDRD) Non-Af 12 L BUN/Creatinine Ratio 10.2 Glucose 223 H Calcium 9.1 Troponin I < 0.015 - Rhythm Strip Rhythm Strip: Sinus Rhythm Rate: 93 Ectopy: None - EKG Initial EKG Interpretation: Sinus Rhythm, No Acute Injury Pattern - Normal EKG Treatment: Aspirin, NTG SL, GI Cocktail Repeat Eval: 4/10 JOEY Risk: >/= 3RF, ASA within 7 days Score: 2 - Medical Decision Making Patient has persistent chest discomfort and right arm discomfort. Her chest x-ray shows some findings of mild CHF and she has a history of diastolic congestive heart failure and a negative nuclear stress test in 2016. She has never had invasive testing. She followed up with cardiology as an outpatient about 5 months ago and was doing very well. Her chest x-ray is probably related to her symptoms, but she does not appear to be having acute coronary syndrome with a normal EKG and negative enzymes after over 48 hours of constant discomfort. Her discomfort started after her last dialysis session and has progressively gotten worse. She is due for dialysis today but skipped it this morning due to not feeling well and coming here. However at the time of disposition, the dialysis center is closed. She prefers to stay, versus waiting until Thursday, I discussed with Dr. Van who is in agreement with this plan. Will discuss with hospitalist. ED Disposition - Plan for ED Patient: Disposition: Acute Care Hospital [facility] Diagnosis: Chest pain, unspecified, Chronic kidney disease, stage 4, severely decreased GFR, Acute on chronic diastolic congestive heart failure Referrals: Hyun Cleaning MD [Primary Care Provider] -
[2019-11-05 12:00] LABS: Absolute Neutrophil Count 8.7 X10^3/uL (2.0-7.7); Basophil# 0.08 X10^3/uL; Basophil% 0.7 % (0-1); Eosinophils% 2.8 % (0-5); Hematocrit 32.3 % (37-47); Hemoglobin 10.5 g/dL (12.0-15.0); Lymphocyte % 7.4 % (19-41); Mean Corp Hgb Conc 32.5 g/dL (32-36); Mean Corpuscular Hgb 32.1 pg (27.0-32.0); Mean Corpuscular Volume 98.8 fL (81-99); Mean Platelet Vol. 11.5 fl (6.2-12.0); Monocyte# 0.88 X10^3/uL; Monocyte% 8.1 % (0-10); NRBC Flagged by Analyzer 0 % (0-5); Neutrophil # 8.68 X10^3/uL (2.7-7.7); Neutrophil % 80.4 % (47-70); Platelet Count 235 K/mm3 (150-450); RBC Distribution Width CV 15.3 % (11.6-14.6); RBC Distribution Width SD 52.9 fl (35.1-43.9); Red Blood Count 3.27 M/mm3 (4.2-5.4); White Blood Count 10.8 K/mm3 (4.4-11.0)
[2019-11-05] MEDS: 0.9% Normal Saline 1,000 ML 150 ML IV (12:10)
[2019-11-05] MEDS: Ondansetron 4 MG/2 ML Vial IV (12:10)
[2019-11-05] MEDS: Aspirin 81 MG TAB.CHEW 324 MG PO (12:11)
[2019-11-05 12:13] LABS: Anion Gap 5 (5-15); BUN 40 mg/dL (7-18); BUN/Creat Ratio 10.2 RATIO (10-20); Calcium,Total 9.1 mg/dL (8.5-10.1); Chloride 99 mmol/L (98-107); Creatinine, Serum 3.94 mg/dL (0.55-1.02); EST Glomerular Filtration Rate 12 mL/min (>60); Est Glom Filt Rate - Afr Amer 15 mL/min (>60); Estimated Creatinine Clearance 16.88 ml/min; Glucose 223 mg/dL (74-106); Potassium 4.6 mmol/L (3.5-5.1); Sodium Level 136 mmol/L (136-145)
[2019-11-05] MEDS: Nitroglycerin SL (ED/IMG/CATH) 0.4 MG TABLET SUBLINGUAL (12:14)
[2019-11-05] MEDS: Mag Hydrox/Al Hydrox/Simeth 30 ML UDC PO (13:46)
--- NOTE | 2019-11-05 15:32 | PCM.CONS.C ---
Problem List (1) Chest pain, unspecified Status: Acute (2) History of non-ST elevation myocardial infarction (NSTEMI) Status: Chronic (3) Nonrheumatic mitral valve regurgitation Status: Chronic (4) CHF (congestive heart failure) Status: Deleted Qualifiers: Heart failure type: diastolic Heart failure chronicity: chronic Qualified Code(s): I50.32 - Chronic diastolic (congestive) heart failure (5) Hyperlipidemia Status: Chronic Qualifiers: Hyperlipidemia type: unspecified Qualified Code(s): E78.5 - Hyperlipidemia, unspecified Comment: Under care of cardiology. Will need to update labs. (6) HTN (hypertension) Status: Chronic Qualifiers: Hypertension type: essential hypertension Qualified Code(s): I10 - Essential (primary) hypertension (7) Pulmonary hypertension Status: Chronic (8) Diabetes type I Status: Chronic Qualifiers: Diabetes mellitus complication status: with ophthalmic complications Diabetes mellitus complication detail: with diabetic retinopathy (9) End-stage renal disease on hemodialysis Status: Chronic Reason for Consult Date of Consultation: 11/05/19 History of Present Illness: The patient is a 58 year old female with a past history which is included hyperlipidemia, hypertension, diabetes mellitus, chronic renal insufficiency, chronic hemodialysis, previous non-ST segment elevation CO-thought to be a type II event with subsequent negative exercise tolerance test/imaging study (no history of cardiac catheterization), CHF and diastolic, mitral valve regurgitation, who presents for evaluation of chest discomfort/right shoulder discomfort. She states that she has had centralized chest discomfort and right shoulder discomfort for 3 days. She states it is not a pain it is a pressure and an uncomfortable sensation. She has not had any acute respiratory related events. There is been no acute nausea/emesis. She states she has had a significant amount of gas ever since she has had a previous colonoscopy. She has not had any report of loose bowel movements. She states she recently has had the crud . She states this was accompanied by coughing. She did not attend dialysis earlier this day. Instead based upon her symptoms she presented to the emergency department for further evaluation. There her troponin I level was negative and her ECG demonstrated sinus rhythm with no acute changes. However her chest x-ray suggested a pattern compatible with increased pulmonary vascularity. Thus she was elected for inpatient evaluation and hemodialysis. She states while in the emergency [facility] she noted her chest discomfort was a 5 out of 10. She was treated with nitroglycerin sublingual x1. She states her discomfort only dropped to a 4 out of 10. She states it is just a constant lingering discomfort. However, despite this, she appears to be resting comfortably in bed, conversing/laughing, and does not appear to be in any acute distress/extremis. [] Past Medical History Allergies/Adverse Reactions: Allergies mirtazapine [From Remeron] Allergy (Severe, Verified 11/05/19 11:03) Kidney failure methadone Allergy (Intermediate, Verified 11/05/19 11:03) Rash prochlorperazine edisylate [From Compazine] Adverse Reaction (Verified 11/05/19 11:03) Other tarditive dyskinesia prochlorperazine maleate [From Compazine] Adverse Reaction (Verified 11/05/19 11:03) Other Home Medications: Ambulatory Orders Medication Instructions Recorded aspirin 81 mg tablet,delayed 81 mg PO DAILY 04/08/18 release Levothyroxine [Synthroid] 137 mcg PO DAILY 01/14/19 Acetaminophen [Tylenol Tablet] 650 mg PO Q6H PRN PRN tab 01/20/19 insulin glulisine U-100 100 1 sliding scale dose SC TIDCM 01/26/19 unit/mL subcutaneous solution furosemide 80 mg tablet 80 mg PO DAILY tab 05/27/19 atorvastatin 80 mg tablet 80 mg PO QHS #90 tab 06/16/19 insulin glargine 100 unit/mL (3 10 unit SC BID 90 Days #18 ml 07/04/19 mL) subcutaneous pen citalopram 40 mg tablet 40 mg PO DAILY #90 tab 07/11/19 gabapentin 300 mg capsule 300 mg PO QODAY cap 08/08/19 Past Medical History (Chronic Problems): Chronic Problems (Last Reviewed 11/05/19 @ 16:13 by Therese Pedroza DO) Pulmonary hypertension (Chronic) Morbid obesity (Chronic) Diabetic retinopathy (Chronic) Anemia of chronic renal failure, stage 5 (Chronic) DEYA (obstructive sleep apnea) (Chronic) End-stage renal disease on hemodialysis (Chronic) Kidney failure (Chronic) Seasonal allergies (Chronic) Anxiety and depression (Chronic) Arthritis (Chronic) Cataracts, bilateral (Chronic) Chronic headaches (Chronic) Hormone deficiency (Chronic) Osteoporosis (Chronic) Diabetic nephropathy associated with type 1 diabetes mellitus (Chronic) Nonrheumatic mitral valve regurgitation (Chronic) History of non-ST elevation myocardial infarction (NSTEMI) (Chronic) Atherosclerotic heart disease of [place] coronary artery without angina pectoris (Chronic) Diabetes type I (Chronic) HTN (hypertension) (Chronic) Hyperlipidemia (Chronic) Under care of cardiology. Will need to update labs. Hypothyroidism (Chronic) Thyroid replacement d/cd although not sure why. Will need to check labs and determine why this is. Patient unable to answer. 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 - *Family History Maternal Family History: Family History (Last Reviewed 07/13/19 @ 12:39 by Corina Jackman) Mother Arthritis Cancer Hormone deficiency Thyroid disorder Osteoporosis Skin cancer Father Arthritis Diabetes Heart disease Hypertension High cholesterol CVA (cerebral vascular accident) History Items: Cancer - lung, melanoma Paternal Family History: Family History (Last Reviewed 07/13/19 @ 12:39 by Corina Jackman) Mother Arthritis Cancer Hormone deficiency Thyroid disorder Osteoporosis Skin cancer Father Arthritis Diabetes Heart disease Hypertension High cholesterol CVA (cerebral vascular accident) History Items: Diabetes Lives: Alone Smoking Status: Never smoker Alcohol: None Drugs: None Review of Systems - Review of Systems General: Denies: Fever, Night Sweats, Fatigue Cardiovascular: Reports: Chest Discomfort Respiratory: Denies: Cough, Sputum Production, Hemoptysis Gastrointestinal: Reports: - - Flatus. Denies: Hematemesis, Hematochezia, Melena Genitourinary: Denies: Dysuria, Hematuria Skin: Denies: Rash Subjectve: This is a pleasant 58-year-old white female who appears to be resting comfortably at the moment in no acute distress. Objective: Vital Signs Temp Pulse Resp BP Pulse Ox 98.7 F 87 12 126/65 H 97 11/05/19 11:01 11/05/19 15:14 11/05/19 15:14 11/05/19 15:14 11/05/19 15:14 Oxygen Flow Rate (L/min) 2 Oxygen Delivery Method Room Air Weight: 151 lb 7.321 oz Body Mass Index (BMI) 30.6 Finger Stick Blood Glucose 152 General: Awake, Alert, Oriented x 3, Cooperative, No Acute Distress HEENT: Atraumatic, Normocephalic, PERRL, EOMI, Sclera Non Icteric Oral: Moist Mucosa Neck: Supple, Good ROM, No JVD Lungs: Clear to auscultation Cardiovascular: Regular Rhythm, Normal S1, Normal S2 Murmur Murmur: Grade 2/6, Mid Systolic, LLSB, LVOT, Sternal Notch Vascular: No Carotid Bruits, - - Left forearm: AV fistula: Positive thrill, positive bruit Abdomen: Bowel Sounds Present, Soft, Distended Extremities: No Cyanosis, No Clubbing, No edema Neurological: No Focal Motor or Sensory Deficit Psych/Mental Status: Appropriate 11/05/19 11:44: WBC 10.8, RBC 3.27 L, Hgb 10.5 L, Hct 32.3 L, MCV 98.8, MCH 32.1 H, MCHC 32.5, Plt Count 235, MPV 11.5, Immature Gran % (Auto) 0.600, Neut % (Auto) 80.4 H, Lymph % (Auto) 7.4 L, [place] % (Auto) 8.1, Eos % (Auto) 2.8, Baso % (Auto) 0.7, Absolute Neuts (auto) 8.7 H, Nucleated RBC % 0 11/05/19 11:44: Sodium 136, Potassium 4.6, Chloride 99, Carbon Dioxide 32.0, Anion Gap 5, BUN 40 H, Creatinine 3.94 H, Est GFR (MDRD) Af Amer 15 L, Est GFR (MDRD) Non-Af 12 L, BUN/Creatinine Ratio 10.2, Glucose 223 H, Calcium 9.1, Troponin I < 0.015 Rhythm: EKG: ECHO: 01-15-19 Interpretation Summary The estimated ejection fraction is 65 %. Stage 1 diastolic dysfunction. Mildly dilated right ventricle. Mild (1+) eccentric mitral valve insufficiency. Mild (1+) tricuspid valve insufficiency. Right ventricular systolic pressure estimated to be 50 mmHg. Moderate pulmonary hypertension. The inferior vena cava is dilated Compared to echo report dated 12/13/2017, LV function has remained the same, but RVSP has increased from 40 to 50 mm Hg. Stress Test: DATE OF SERVICE: 05/16/2015 A 54-year-old lady with a history of coronary artery risk factors with chest pain who presents for pharmacologic myocardial stress test. Resting EKG demonstrates sinus tachycardia with a rate of 106 beats per minute. Normal intervals are noted. Resting blood pressure was 154/84. 0.4 mg of regadenoson was infused per usual protocol followed by rapid intravenous saline flush injection. Continuous EKG monitoring was performed. The maximum heart rate attained was 120 beats per minute, which was 72% of maximum predicted heart rate. The maximum workload attained was 1 MET. At rest, there were no ST or T-wave changes noted to suggest abnormal flow reserve. At peak infusion, no ST or T-wave changes were noted to suggest abnormal flow reserve. Resting blood pressure was 154/84. Final blood pressure was 142/78. MYOCARDIAL PERFUSION PROTOCOL: 11.8 mCi of sestamibi was injected at rest. 0.4 mg of regadenoson was infused per usual protocol. At peak infusion, 33.3 mCi of sestamibi was injected. Stress images were obtained. Stress and rest images were reconstructed and compared in the short axis, vertical long and horizontal long axes. Gated images were also obtained. PERFUSION SPECT ANALYSIS: Review of the images demonstrate significant GI attenuation artifact. All the eng, however, appear to be well perfused with no areas of obvious reversibility, though inferior ischemia cannot be completely excluded due to obscuration of the inferior wall by the GI attenuation artifact. GATED SPECT ANALYSIS: The gated ejection fraction is noted to be 61%. CONCLUSION: 1. Pharmacologic myocardial perfusion stress test with no overt evidence of ischemia. 2. Preserved ejection fraction. CXR: IMPRESSION: Lower lung edema or infiltrates Assessment/Plan 1. Chest pain/right shoulder pain The etiology of the patient's pain is uncertain. It does appear to be somewhat typical, even taking into consideration her history of diabetes mellitus, with respect to symptoms compatible with an acute coronary syndrome. Thus far her troponin I level, despite her renal insufficiency, has been negative. Her ECG demonstrated no acute changes. From a cardiac standpoint she will be monitored. Her enzymes and ECG will be followed. Depending upon her clinical course she may need further noninvasive or invasive cardiovascular testing. At the same time she can be evaluated for noncardiac etiology of her discomfort. It is unclear whether her discomfort may be related to gastrointestinal disease including her distended intestinal tract/abdomen. 2. Non-ST segment elevation CO-remote She had previously undergone evaluation in 2014 for concerns of abnormal cardiac enzymes. At that time it was thought she may have had a non-ST segment elevation CO-type II event. She underwent noninvasive testing, as it was thought not to proceed with diagnostic cardiac catheterization at that [id number] upon concerns of IV contrast related nephropathy and worsening her underlying renal insufficiency. Her exercise tolerance test, as noted, was considered negative and thus she has gone since that time without the need for invasive evaluation or care. At the moment her discomfort is somewhat atypical. Her cardiac enzymes have been negative thus far. Her ECG is demonstrated no acute changes thus far. She will continue to be monitored. 3. Mitral valve regurgitation She can be followed by history, exam, and echocardiogram as needed. 4. CHF There has been concerns in the past that she may have an element of diastolic mediated CHF. She has been treated medically and with the assistance of hemodialysis. At the moment she does not appear to have any acute symptoms. However her chest x-ray does suggest increased pulmonary vascularity. Thus she will continue medical therapy and undergo hemodialysis. 5. Hyperlipidemia She should continue risk factor evaluation and care. 6. Hypertension Her blood pressure can be followed. Her medicines can be adjusted, taking into consideration her renal insufficiency, to help control her blood pressure. 7. Pulmonary hypertension Based upon her previous study she does have an element of pulmonary hypertension. This may be secondary to noncardiovascular issues. She will continue medical management/support as needed. 8. Diabetes mellitus She will continue under the care of internal medicine. 9. Chronic renal insufficiency She does have a history of chronic renal sufficiency on chronic hemodialysis. She will continue under the care of nephrology. Comment: The above was discussed and reviewed with the patient, the [facility] emergency department staff, and Dr. Pedroza. This note was generated using a voice recognition system and there may be incorrect words, spelling or punctuation that were not noted when reviewing the office note prior to saving.
--- NOTE | 2019-11-05 16:01 | HP.PCM_ITS ---
Problem List (1) Morbid obesity Status: Chronic (2) Diabetic retinopathy Status: Chronic Qualifiers: Diabetes mellitus type: type 1 Laterality: bilateral (3) Anemia of chronic renal failure, stage 5 Status: Chronic (4) Chest pain, unspecified Status: Acute (5) Acute on chronic diastolic congestive heart failure Status: Acute (6) Pulmonary hypertension Status: Chronic (7) DEYA (obstructive sleep apnea) Status: Chronic (8) End-stage renal disease on hemodialysis Status: Chronic (9) Kidney failure Status: Chronic (10) Seasonal allergies Status: Chronic (11) Anxiety and depression Status: Chronic (12) Arthritis Status: Chronic (13) Cataracts, bilateral Status: Chronic (14) Chronic headaches Status: Chronic (15) Hormone deficiency Status: Chronic (16) Osteoporosis Status: Chronic (17) Diabetic nephropathy associated with type 1 diabetes mellitus Status: Chronic (18) Nonrheumatic mitral valve regurgitation Status: Chronic (19) History of non-ST elevation myocardial infarction (NSTEMI) Status: Chronic (20) Atherosclerotic heart disease of [place] coronary artery without angina pectoris Status: Chronic Qualifiers: [place] vs. transplanted heart: [place] heart Qualified Code(s): I25.10 - Atherosclerotic heart disease of [place] coronary artery without angina pectoris (21) Diabetes type I Status: Chronic Qualifiers: Diabetes mellitus complication status: with ophthalmic complications Diabetes mellitus complication detail: with diabetic retinopathy (22) HTN (hypertension) Status: Chronic Qualifiers: Hypertension type: essential hypertension Qualified Code(s): I10 - Essential (primary) hypertension (23) Hyperlipidemia Status: Chronic Qualifiers: Hyperlipidemia type: unspecified Qualified Code(s): E78.5 - Hyperlipidemia, unspecified Comment: Under care of cardiology. Will need to update labs. (24) Hypothyroidism Status: Chronic Qualifiers: Hypothyroidism type: unspecified Qualified Code(s): E03.9 - Hypothyroidism, unspecified Comment: Thyroid replacement d/cd although not sure why. Will need to check labs and determine why this is. Patient unable to answer. (25) Diabetic polyneuropathy Status: Chronic Qualifiers: Diabetes mellitus type: type 1 Qualified Code(s): E10.42 - Type 1 diabetes mellitus with diabetic polyneuropathy (26) Asthma Status: Chronic Qualifiers: Asthma severity: unspecified severity Asthma persistence: unspecified Asthma complication type: unspecified Qualified Code(s): J45.909 - Unspecified asthma, uncomplicated (27) Charcot's joint of right foot Status: Chronic History of Present Illness Date of Admission: 11/05/19 Chief Complaint: Chest pain, shortness of breath The patient is a 58 year old F with a past medical history of diabetes mellitus type 1 since 4 years of age, hypertension, hyperlipidemia, end-stage renal disease on hemodialysis, anemia of chronic kidney disease, asthma, obstructive sleep apnea, morbid obesity, diabetic peripheral polyneuropathy, Charcot foot on the right, diabetic retinopathy, pulmonary hypertension, Anxiety/depression, osteoporosis, nonrheumatic mitral valve regurgitation, coronary artery disease and stage I diastolic dysfunction with chronic diastolic congestive heart failure presented to the emergency department at [facility] on 11/05/2019 complaining of chest pain that has been continuous for at least 48 hours. The chest pain was located over the upper sternum and was described as heaviness. It came on while she was sitting watching television. She denies diaphoresis. She does have nausea and shortness of breath. She admits to missing her last dialysis session. Her last stress test was in 2014 and it was negative. EKG in the emergency room revealed normal sinus rhythm with no ST segment elevation and no significant ST segment depression. Chest x-ray per my review appeared to have a poor inspiratory effort with some pulmonary vascular congestion. There were no pleural effusions noted. The radiologist interpreted it as increased opacity in the lower lung aquino possibly secondary to edema versus infiltrates. White blood cell count is normal at 10.8 with 80.4 neutrophils but she was recently on prednisone for an exacerbation of asthma. Hemoglobin is 10.5 with an MCV of 98.8. Platelets are within normal limits. The BMP shows a potassium of 4.6 and a BUN of 40 with a creatinine of 3.94. Troponin is less than 0.015. She is not tachypneic and has no conversational dyspnea. The pulse ox on RA was 89% but on 2 LPM it is 99%. She is being admitted to the to a monitored bed in the hospital with a dx of acute on chronic diastolic CHF and atypical CP. Past Medical History Past Medical History (Chronic Problems): Chronic Problems (Last Reviewed 11/05/19 @ 16:13 by Therese Pedroza DO) Pulmonary hypertension (Chronic) Morbid obesity (Chronic) Diabetic retinopathy (Chronic) Anemia of chronic renal failure, stage 5 (Chronic) DEYA (obstructive sleep apnea) (Chronic) End-stage renal disease on hemodialysis (Chronic) Kidney failure (Chronic) Seasonal allergies (Chronic) Anxiety and depression (Chronic) Arthritis (Chronic) Cataracts, bilateral (Chronic) Chronic headaches (Chronic) Hormone deficiency (Chronic) Osteoporosis (Chronic) Diabetic nephropathy associated with type 1 diabetes mellitus (Chronic) Nonrheumatic mitral valve regurgitation (Chronic) History of non-ST elevation myocardial infarction (NSTEMI) (Chronic) Atherosclerotic heart disease of [place] coronary artery without angina pectoris (Chronic) Diabetes type I (Chronic) HTN (hypertension) (Chronic) Hyperlipidemia (Chronic) Under care of cardiology. Will need to update labs. Hypothyroidism (Chronic) Thyroid replacement d/cd although not sure why. Will need to check labs and determine why this is. Patient unable to answer. Diabetic polyneuropathy (Chronic) Asthma (Chronic) Charcot's joint of right foot (Chronic) Medical History: Medical History (Last Reviewed 11/05/19 @ 16:13 by Therese Pedroza DO) Kidney failure (Chronic) N19 Seasonal allergies (Chronic) J30.2 Anxiety and depression (Chronic) F41.9, F32.9 Arthritis (Chronic) M19.90 Cataracts, bilateral (Chronic) H26.9 Chronic headaches (Chronic) R51 Hormone deficiency (Chronic) E34.8 Osteoporosis (Chronic) M81.0 Nonrheumatic mitral valve regurgitation (Chronic) I34.0 History of non-ST elevation myocardial infarction (NSTEMI) (Chronic) I25.2 Atherosclerotic heart disease of [place] coronary artery without angina pectoris (Chronic) I25.10 Diabetes type I (Chronic) HTN (hypertension) (Chronic) I10 Hyperlipidemia (Chronic) E78.5 Under care of cardiology. Will need to update labs. Hypothyroidism (Chronic) E03.9 Thyroid replacement d/cd although not sure why. Will need to check labs and determine why this is. Patient unable to answer. Diabetic polyneuropathy (Chronic) E11.42 Asthma (Chronic) J45.909 Charcot's joint of right foot (Chronic) M14.671 Seizure R56.9 Vascular disease I99.9 Vision problem H54.7 Back problem M53.9 Bone fracture (Resolved) T14.8XXA Breast lump (Resolved) N63.0 H/O transfusion of whole blood (Resolved) Z92.89 Hypoglycemia (Resolved) E16.2 Recurrent UTI (Resolved) N39.0 Aortic valve disorder (Inactive) I35.9 Pneumonia (Inactive) J18.9 Allergies mirtazapine [From Remeron] Allergy (Severe, Verified 11/05/19 11:03) Kidney failure methadone Allergy (Intermediate, Verified 11/05/19 11:03) Rash prochlorperazine edisylate [From Compazine] Adverse Reaction (Verified 11/05/19 11:03) Other tarditive dyskinesia prochlorperazine maleate [From Compazine] Adverse Reaction (Verified 11/05/19 11:03) Other Home Medications: Ambulatory Orders Medication Instructions Recorded aspirin 81 mg tablet,delayed 81 mg PO DAILY 04/08/18 release Levothyroxine [Synthroid] 137 mcg PO DAILY 01/14/19 Acetaminophen [Tylenol Tablet] 650 mg PO Q6H PRN PRN tab 01/20/19 insulin glulisine U-100 100 1 sliding scale dose SC TIDCM 01/26/19 unit/mL subcutaneous solution furosemide 80 mg tablet 80 mg PO DAILY tab 05/27/19 atorvastatin 80 mg tablet 80 mg PO QHS #90 tab 06/16/19 insulin glargine 100 unit/mL (3 10 unit SC BID 90 Days #18 ml 07/04/19 mL) subcutaneous pen citalopram 40 mg tablet 40 mg PO DAILY #90 tab 07/11/19 gabapentin 300 mg capsule 300 mg PO QODAY cap 08/08/19 Surgical History: Surgical History (Last Reviewed 11/05/19 @ 16:13 by Therese Pedroza DO) History of colonoscopy Z98.890 01/21 History of endoscopy Z98.890 01/21 history fistulagram Onset Date: ~12/16/18 left arm fistula creation 08/07/17 H/O dilation and curettage Z98.890 H/O tubal ligation Z98.51 History of amputation of right great toe Z98.890, Z89.411 History of hand surgery Z98.890 Hx of cataract surgery Z98.49 Wrist fracture S62.109A raquel removal r leg tibula/fibula surgery Surgical History: dilatation and curettage, - - LUE AVF Psychiatric History: Anxiety, Depression MANAGER STAFFING History: No pertinent MANAGER STAFFING history Lives: Alone Smoking Status: Never smoker Tobacco Use: Non-smoker Alcohol: None Drugs: None - *Family History Maternal Family History: Family History (Last Reviewed 07/13/19 @ 12:39 by Corina Jackman) Mother Arthritis Cancer Hormone deficiency Thyroid disorder Osteoporosis Skin cancer Father Arthritis Diabetes Heart disease Hypertension High cholesterol CVA (cerebral vascular accident) History Items: Cancer - lung, melanoma Paternal Family History: Family History (Last Reviewed 07/13/19 @ 12:39 by Corina Jackman) Mother Arthritis Cancer Hormone deficiency Thyroid disorder Osteoporosis Skin cancer Father Arthritis Diabetes Heart disease Hypertension High cholesterol CVA (cerebral vascular accident) History Items: Diabetes Review of Systems Constitutional: Denies: Chills, Fever, Weight Change HEENT: Reports: Head Aches - Chronic. Denies: Sinus Congestion, Sinus Drainage Cardiovascular: Reports: Chest Pain, Chest Pressure, Orthopnea. Denies: Edema, Light Headedness, Palpitations, Syncope Respiratory: Reports: Shortness of Breath, Shortness of breath upon exertion. Denies: Cough, Shortness of breath at rest, Sputum production Gastrointestinal: Reports: Nausea, - - She complains of a large amount of gas. Denies: Abdominal Pain, Constipation, Diarrhea, Vomiting Genitourinary: Denies: Dysuria Musculoskeletal: Denies: Joint Pain, Joint Tenderness Skin: Denies: Jaundice, Rash, Wounds Neurological: Reports: Balance problems - Due to Charcot's foot on the right and she uses a wheeled walker for ambulation., Headaches. Denies: Change in Speech, Slurred speech, Confusion, Focal weakness, Numbness, Tingling, Tremor, Seizures Psychiatric: Denies: Anxiety, Depression, Homicidal Ideations, Suicidal Idea tions Endocrine: Denies: Hx of Thyroiditis Hematologic/ Lymphatic: Denies: Easy Bruising, Easy Bleeding, Hx of blood clot VTE Information - Inpt Only VTE Present on Admission: No VTE Mechan Device Prophylaxis: None VTE Pharm Prophylaxis ordered?: No Reason prophylaxis not ordered:: Treatment Not Indicated - She is ambulatory, has no history of DVT or pulmonary embolus, no history of CA - Physical Exam Vitals/I&O's: Vital Signs Temp Pulse Resp BP Pulse Ox 98.7 F 89 16 135/64 H 97 11/05/19 11:01 11/05/19 15:41 11/05/19 15:41 11/05/19 15:41 11/05/19 15:41 Oxygen Flow Rate (L/min) 2 Oxygen Delivery Method Room Air Weight: 151 lb 7.321 oz Body Mass Index (BMI) 30.6 Finger Stick Blood Glucose 152 General: Alert, Oriented x3, Cooperative, No apparent distress, Well developed, Well nourished HEENT: Atraumatic, PERRLA, EOMI, Normocephalic Oral: Moist Mucosa, No Gingival or Mucosal Lesions/ Ulcerations Neck: Supple, No Nodes, Trachea Midline Lungs: Rales - Coarse rales in the bases, Wheezes - Rare, - - Not tachypneic, no accessory muscle use, no conversational dyspnea. There is symmetric chest expansion. Cardiovascular: Regular rate, Regular Rhythm, Normal S1, Normal S2, Murmur - She has a 1/6 to 2/6 systolic murmur heard at the second right intercostal space, No rub noted, No Gallop Abdomen: Bowel Sounds Present, Soft, Non Tender, Non-Distended, - - No guarding with palpation Extremities: No clubbing, No cyanosis, No edema, No Calf Tenderness Skin: No rashes, No breakdown Musculoskeletal: - - The right leg is shorter than the left secondary to multiple fractures in the past and also Charcot's foot. Neurological: Cranial nerves II-XII grossly intact, Neuro grossly intact Psych/Mental Status: Normal Affect, Appropriate Laboratory Results 11/05/19 11:44: WBC 10.8, RBC 3.27 L, Hgb 10.5 L, Hct 32.3 L, MCV 98.8, MCH 32.1 H, MCHC 32.5, RDW Std Deviation 52.9 H, RDW Coeff of Abdoul 15.3 H, Plt Count 235, MPV 11.5, Immature Gran % (Auto) 0.600, Neut % (Auto) 80.4 H, Lymph % (Auto) 7.4 L, Adams % (Auto) 8.1, Eos % (Auto) 2.8, Baso % (Auto) 0.7, Absolute Neuts (auto) 8.7 H, Absolute Lymphs (auto) 0.80 L, Nucleated RBC % 0 11/05/19 11:44: Sodium 136, Potassium 4.6, Chloride 99, Carbon Dioxide 32.0, Anion Gap 5, BUN 40 H, Creatinine 3.94 H, Estim Creat Clear Calc 16.88, Est GFR (MDRD) Af Amer 15 L, Est GFR (MDRD) Non-Af 12 L, BUN/Creatinine Ratio 10.2, Glucose 223 H, Calcium 9.1, Troponin I < 0.015 Current Medications Sodium Chloride () 1,000 mls @ 150 mls/hr IV .Q6H40M GEE Last Admin: 11/05/19 12:10 Dose: 150 mls/hr Documented by: Nitroglycerin (Nitrostat) 0.4 mg SUBLINGUAL Q5M PRN PRN Reason: Chest pain Last Admin: 11/05/19 12:14 Dose: 0.4 mg Documented by: Assessment/Plan All Active Problems (Last Reviewed 11/05/19 @ 16:13 by Therese Pedroza DO) Chest pain, unspecified (Acute) Acute on chronic diastolic congestive heart failure (Acute) Acute on chronic anemia (Resolved) Ascites (Resolved) Bone fracture (Resolved) Breast lump (Resolved) DKA (diabetic ketoacidoses) (Resolved) H/O transfusion of whole blood (Resolved) Hyperkalemia (Resolved) Hypoglycemia (Resolved) NSTEMI (non-ST elevated myocardial infarction) (Resolved) Problem with dialysis access (Resolved) Recurrent UTI (Resolved) Syncope (Resolved) Impressions 1. respiratory insufficiency with hypoxia due to diastolic CHF due to fluid overload due to missing her HD session. 2. atypical chest pain in a pt with a PMH of CAD 3. borderline hyperkalemia 4. acute on chronic diastolic CHF due to missing HD session. Notidied Dr. Pineda of the patient's admission and she is going to arrange dialysis for today Dr. Van has been consulted for CP and acute on chronic diastolic CHF Admit to a monitored bed on PCU Recheck lab in the AM Serial CE's Code Visit Inpatient E&M: [id number] Init Hosp L2
--- NOTE | 2019-11-05 16:03 | EKG12_ITS ---
Test Reason : CP Blood Pressure : / mmHG Vent. Rate : 076 BPM Atrial Rate : 076 BPM P-R Int : 124 ms QRS Dur : 080 ms QT Int : 418 ms P-R-T Axes : 027 009 024 degrees QTc Int : 470 ms Normal sinus rhythm Normal ECG When compared with ECG of 05-NOV-2019 18:41, MANUAL COMPARISON REQUIRED, DATA IS UNCONFIRMED Confirmed by JENNYFER SARKAR, JORDAN ([id number]), avid editor [place] ([id number]) on 11/08/2019 8:53:46 AM Referred By: ROBERTO Confirmed By:JORDAN BURGER MD
[2019-11-05 16:50] LABS: Bedside Glucose 181 mg/dL (70-110)
--- NOTE | 2019-11-05 17:00 | PCM.PN.BLA ---
Progress Note 58 y/o F with ESRD due to diabetes on HD Tu, , Sat at [facility] admitted for CP, SOB. Last dialysis was 11/03. VSS, AF, labs reviewed. Will arrange her dialysis today, follow chronic orders. STROKE Vital Signs/Narrative: Vital Signs Temp Pulse Resp BP Pulse Ox 11/05/19 16:13 98.7 F 89 14 134/68 H 93 11/05/19 15:41 89 16 135/64 H 97 11/05/19 15:39 89 17 135/64 H 95 11/05/19 15:14 87 12 126/65 H 97 11/05/19 13:48 86 20 H 119/64 99
[2019-11-05 17:04] LABS: Phosphorus 3.7 mg/dL (2.5-4.9)
[2019-11-05] MEDS: Gabapentin 300 MG Capsule PO (22:40)
[2019-11-05 22:41] LABS: Bedside Glucose 178 mg/dL (70-110)
[2019-11-05] MEDS: Atorvastatin Calcium 80 MG Tablet PO (22:41)
[2019-11-05] MEDS: Metoprolol Tartrate 25 MG Tablet PO (22:41)
[2019-11-06] VITALS (15 sets, daily range): BP systolic 107–126; BP diastolic 52–65; PULSE 66–81; RESP 14–20; TEMP 36.6–38.2; O2SAT 93–100
[2019-11-06] MEDS: Levothyroxine 137 MCG Tablet PO (05:54)
[2019-11-06 06:02] LABS: Hematocrit 31.1 % (37-47); Hemoglobin 9.6 g/dL (12.0-15.0); Mean Corp Hgb Conc 30.9 g/dL (32-36); Mean Corpuscular Hgb 31.1 pg (27.0-32.0); Mean Corpuscular Volume 100.6 fL (81-99); Platelet Count 204 K/mm3 (150-450); RBC Distribution Width CV 15.5 % (11.6-14.6); RBC Distribution Width SD 54.3 fl (35.1-43.9); Red Blood Count 3.09 M/mm3 (4.2-5.4); White Blood Count 5.4 K/mm3 (4.4-11.0)
[2019-11-06 06:29] LABS: ALB/GLOB Ratio 0.7 RATIO (0.9-2.4); AST(SGOT) 16 U/L (15-37); Alanine Aminotransfer ALT/SGPT 24 U/L (13-56); Albumin, Serum 2.7 g/dL (3.2-5.0); Alkaline Phosphatase 130 U/L (45-117); Anion Gap 3 (5-15); BUN 23 mg/dL (7-18); BUN/Creat Ratio 7.9 RATIO (10-20); Calcium,Total 9.1 mg/dL (8.5-10.1); Chloride 100 mmol/L (98-107); Cholesterol 170 mg/dL (200); Creatinine, Serum 2.91 mg/dL (0.55-1.02); EST Glomerular Filtration Rate 18 mL/min (>60); Est Glom Filt Rate - Afr Amer 21 mL/min (>60); Estimated Creatinine Clearance 21.82 ml/min; Globulin 3.9 g/dL (2.2-4.2); Glucose 222 mg/dL (74-106); High Density Lipoprotein 74 mg/dL; Magnesium 2.4 mg/dL (1.6-2.6); Phosphorus 3.6 mg/dL (2.5-4.9); Potassium 4.6 mmol/L (3.5-5.1); Protein, Total 6.6 g/dL (6.4-8.2); Sodium Level 139 mmol/L (136-145); Triglycerides 114 mg/dL; Very Low Density Lipoprotein 23 mg/dL (5-40)
[2019-11-06] MEDS: Insulin Lispro 100 UNIT/ML INSULN.PEN SC ×3 (06:37→16:53)
[2019-11-06 06:56] LABS: Bedside Glucose 182 mg/dL (70-110)
[2019-11-06] MEDS: Aspirin E.C. 81 MG Tablet PO (09:14)
[2019-11-06] MEDS: Citalopram 40 MG TABLET PO (09:14)
[2019-11-06] MEDS: Furosemide 80 MG Tablet PO (09:15)
[2019-11-06] MEDS: Metoprolol Tartrate 25 MG Tablet PO ×2 (09:16→22:22)
[2019-11-06] MEDS: Famotidine 20 MG Tablet PO (09:16)
--- NOTE | 2019-11-06 10:29 | EKG12_ITS ---
Test Reason : CP ADMISSION Blood Pressure : / mmHG Vent. Rate : 095 BPM Atrial Rate : 095 BPM P-R Int : 134 ms QRS Dur : 080 ms QT Int : 374 ms P-R-T Axes : 060 007 066 degrees QTc Int : 469 ms Normal sinus rhythm Nonspecific ST and T wave abnormality Prolonged QT Abnormal ECG When compared with ECG of 05-NOV-2019 11:09, MANUAL COMPARISON REQUIRED, DATA IS UNCONFIRMED Confirmed by JENNYFER SARKAR, JORDAN ([id number]), order editor [place] MA ([id number]) on 11/08/2019 8:54:16 AM Referred By: CHARANJIT Confirmed By:JORDAN BURGER MD
--- NOTE | 2019-11-06 11:04 | PN_ITS ---
<Ayesha Nunn - Last Filed: 11/06/19 11:29> Patient Problems: Active and Suspected Problems (Last Reviewed 11/05/19 @ 16:13 by Therese Pedroza DO) Chest pain, unspecified (Acute) Acute on chronic diastolic congestive heart failure (Acute) Subjective: Patient seen and examined. Reports episode of chest pressure this morning with pain radiation down to both arms followed by headache with lightheaded sensation. EKG at that time without acute changes. Denies further episodes however states she does not feel right. Denies shortness of breath. - Physical Exam Vitals/I&O's: Vital Signs Temp Pulse Resp BP Pulse Ox 98.0 F 75 18 113/63 96 11/06/19 09:35 11/06/19 09:35 11/06/19 09:35 11/06/19 09:35 11/06/19 09:35 Oxygen Flow Rate (L/min) 2 Oxygen Delivery Method Room Air Weight: 144 lb 9.972 oz Body Mass Index (BMI) 29.2 Finger Stick Blood Glucose 152 Intake and Output for Last 24 Hours 11/04/19 11/05/19 11/06/19 23:59 23:59 23:59 Intake Total 615 / 855 360 / 360 Output Total 2150 / 2150 Balance 615 / -1295 -1790 / -1790 General: Alert, Oriented x3, Cooperative HEENT: Atraumatic, PERRLA, EOMI, Normocephalic Neck: Supple, No JVD, Negative Carotid Bruits Lungs: Clear to auscultation, Diminished Cardiovascular: Regular rate, Regular Rhythm, Normal S1, Normal S2, Murmur Abdomen: Bowel Sounds Present, Soft, Non Tender, Non-Distended Extremities: No clubbing, No cyanosis, No edema, Capillary Refill Less than 3 Seconds, - - Right charcot foot Skin: No rashes, No breakdown Musculoskeletal: No Tenderness to Palpation of Joints or Extremities Neurological: Cranial nerves II-XII grossly intact, Neuro grossly intact Psych/Mental Status: Normal Affect, Appropriate Laboratory Results 11/05/19 11:44: WBC 10.8, RBC 3.27 L, Hgb 10.5 L, Hct 32.3 L, MCV 98.8, MCH 32.1 H, MCHC 32.5, RDW Std Deviation 52.9 H, RDW Coeff of Abdoul 15.3 H, Plt Count 235, MPV 11.5, Immature Gran % (Auto) 0.600, Neut % (Auto) 80.4 H, Lymph % (Auto) 7.4 L, [place] % (Auto) 8.1, Eos % (Auto) 2.8, Baso % (Auto) 0.7, Absolute Neuts (auto) 8.7 H, Absolute Lymphs (auto) 0.80 L, Nucleated RBC % 0 11/05/19 11:44: Sodium 136, Potassium 4.6, Chloride 99, Carbon Dioxide 32.0, Anion Gap 5, BUN 40 H, Creatinine 3.94 H, Estim Creat Clear Calc 16.88, Est GFR (MDRD) Af Amer 15 L, Est GFR (MDRD) Non-Af 12 L, BUN/Creatinine Ratio 10.2, Glucose 223 H, Calcium 9.1, Troponin I < 0.015 11/05/19 16:23: Troponin I < 0.015 11/05/19 16:23: Phosphorus 3.7 11/05/19 16:38: POC Glucose 181 H 11/05/19 19:25: Troponin I < 0.015 11/05/19 22:28: POC Glucose 178 H 11/06/19 05:23: WBC 5.4, RBC 3.09 L, Hgb 9.6 L, Hct 31.1 L, MCV 100.6 H, MCH 31.1, MCHC 30.9 L, RDW Std Deviation 54.3 H, RDW Coeff of Abdoul 15.5 H, Plt Count 204, MPV 11.0 11/06/19 05:23: Sodium 139, Potassium 4.6, Chloride 100, Carbon Dioxide 36.0 H, Anion Gap 3 L, BUN 23 H, Creatinine 2.91 H, Estim Creat Clear Calc 21.82, Est GFR (MDRD) Af Amer 21 L, Est GFR (MDRD) Non-Af 18 L, BUN/Creatinine Ratio 7.9 L, Glucose 222 H, Calcium 9.1, Phosphorus 3.6, Magnesium 2.4, Total Bilirubin 0.50, AST 16, ALT 24, Alkaline Phosphatase 130 H, Total Protein 6.6, Albumin 2.7 L, Globulin 3.9, Albumin/Globulin Ratio 0.7 L, Triglycerides 114, Cholesterol 170, LDL Cholesterol 73, VLDL Cholesterol 23, HDL Cholesterol 74 11/06/19 06:34: POC Glucose 182 H Current Medications Acetaminophen (Tylenol) 650 mg PO Q6H PRN PRN PRN Reason: Mild Pain (scale 0-3)/T>100.7 Albuterol Sulfate (Ventolin Aerosols) 2.5 mg INHALATION Q2H PRN PRN PRN Reason: SOB/Wheezing Aspirin (Ecotrin) 81 mg PO DAILY@0800 [facility] Last Admin: 11/06/19 09:14 Dose: 81 mg Documented by: Atorvastatin Calcium (Lipitor) 80 mg PO QHS [facility] Last Admin: 11/05/19 22:41 Dose: 80 mg Documented by: Citalopram Hydrobromide (Celexa) 40 mg PO DAILY [facility] Last Admin: 11/06/19 09:14 Dose: 40 mg Documented by: Famotidine (Pepcid) 20 mg PO DAILY [facility] Last Admin: 11/06/19 09:16 Dose: 20 mg Documented by: Furosemide (Lasix) 80 mg PO DAILY [facility] Last Admin: 11/06/19 09:15 Dose: 80 mg Documented by: Gabapentin (Neurontin) 300 mg PO TuThSa@1000 [facility] Last Admin: 11/05/19 22:40 Dose: 300 mg Documented by: Glucagon () 1 mg IM .X1 PRN PRN Reason: Hypoglycemia Dextrose (Dextrose 10%-Water) 250 mls @ 999 mls/hr IV .Q16M PRN; Protocol PRN Reason: HYPOGLYCEMIA Insulin Glargine (Lantus (Bkc)) 10 units SC BID [facility] Last Admin: 11/06/19 09:14 Dose: 10 u Documented by: Insulin Human Lispro (Humalog Kwikpen (Bkc)) 0 unit SC TIDAC [facility]; Protocol Last Admin: 11/06/19 06:37 Dose: 1 u Documented by: Levothyroxine Sodium (Synthroid) 137 mcg PO DAILY@0600 [facility] Last Admin: 11/06/19 05:54 Dose: 137 mcg Documented by: Magnesium Hydroxide (Milk Of Magnesia) 30 ml PO DAILY PRN PRN PRN Reason: Constipation Melatonin (Melatonin) 3 mg PO QHS PRN PRN PRN Reason: INSOMNIA Metoprolol Tartrate (Lopressor (Beta Gloria)) 25 mg PO BID [facility] Last Admin: 11/06/19 09:16 Dose: 25 mg Documented by: Morphine Sulfate () 2 mg IV Q3H PRN PRN PRN Reason: Pain Score 6-10/10 Nitroglycerin (Nitrostat) 0.4 mg SUBLINGUAL Q5M PRN PRN Reason: CARDIAC/CHEST PAIN Ondansetron HCl (Zofran) 4 mg IV Q8H PRN PRN PRN Reason: NAUSEA/VOMITING Senna/Docusate Sodium (Senokot-S, Lakisha-Colace) 2 tablet PO BID PRN PRN PRN Reason: Constipation Simethicone (Mylicon) 80 mg PO [facility] Last Admin: 11/06/19 09:14 Dose: 80 mg Documented by: Sodium Chloride () 10 - 40 ml IV UD PRN PRN Reason: SALINE FLUSH Medical Necessity - Tobacco Use Smoking Status: Never smoker Tobacco Use: Non-smoker Assessment/Plan All Active Problems (Last Reviewed 11/05/19 @ 16:13 by Therese Pedroza DO) Chest pain, unspecified (Acute) Acute on chronic diastolic congestive heart failure (Acute) Acute on chronic anemia (Resolved) Ascites (Resolved) Bone fracture (Resolved) Breast lump (Resolved) DKA (diabetic ketoacidoses) (Resolved) H/O transfusion of whole blood (Resolved) Hyperkalemia (Resolved) Hypoglycemia (Resolved) NSTEMI (non-ST elevated myocardial infarction) (Resolved) Problem with dialysis access (Resolved) Recurrent UTI (Resolved) Syncope (Resolved) 1. Chest pain, remote history of NSTEMI-rule out ACS. Troponin and EKG negative thus far. Plan for echo and stress test in a.m. Cardiology following. Continue aspirin, statin. Echo January 2019 demonstrated an EF of 65%, stage I diastolic dysfunction, mild mitral valve insufficiency, mild tricuspid valve insufficiency, RVSP 50 mmHg. 2. ESRD on HD-nephrology, Dr. Pineda on consult. Continue hemodialysis per nephrology recommendation. 3. Chronic diastolic CHF-continue home Lasix regimen as well as dialysis. No acute exacerbation. 4. History of aortic valve disease-plan for repeat echo as noted above. 5. Type 1 diabetes mellitus with diabetic neuropathy-continue home insulin regimen. Accu-Cheks with sliding scale insulin. 6. Hypertension-stable, continue Lasix regimen. 7. Hyperlipidemia-continue statin. 8. Hypothyroidism-continue Synthroid regimen. 9. Asthma-no exacerbation. Follows with Dr. Mckeon, pulmonary medicine. 10. Right Charcot foot- stable. PT/OT. 11. Anxiety/Depression-continue citalopram regimen. 12. DEYA-continue home CPAP regimen. 13. GERD-continue famotidine regimen. 14. Anemia of chronic disease- stable, trend CBC. DVT prophylaxis- heparin sc This patient was seen by NATE Luna under the supervision of Dr. Smith. <Haroon Smith - Last Filed: 11/06/19 13:29> Subjective: Patient had chest pressure about 3/10 in the morning with feeling of heaviness in both arms, lightheadedness. Also felt like abdominal gas. Repeat EKG done shows no acute changes, normal sinus rhythm at 76 bpm. - Physical Exam Vitals/I&O's: Vital Signs Temp Pulse Resp BP Pulse Ox 98.0 F 75 18 113/63 96 11/06/19 09:35 11/06/19 09:35 11/06/19 09:35 11/06/19 09:35 11/06/19 09:35 Oxygen Flow Rate (L/min) 2 Oxygen Delivery Method Room Air Weight: 144 lb 9.972 oz Body Mass Index (BMI) 29.2 Finger Stick Blood Glucose 152 Intake and Output for Last 24 Hours 11/04/19 11/05/19 11/06/19 23:59 23:59 23:59 Intake Total 615 / 855 835 / 835 Output Total 2150 / 2150 Balance 615 / -1295 -1315 / -1315 General: Alert, Oriented x3, Cooperative HEENT: Atraumatic, PERRLA, EOMI, Normocephalic Neck: Supple, No JVD, Negative Carotid Bruits Lungs: Clear to auscultation, No rhonchi, No wheeze, No rales, Diminished - Air entry is diminished in bilateral lung bases Cardiovascular: Regular rate, Regular Rhythm, Normal S1, Normal S2, Murmur - Systolic murmur present over left lower sternal border Abdomen: Bowel Sounds Present, Soft, Non Tender Extremities: No edema, Capillary Refill Less than 3 Seconds, - Skin: No rashes, No breakdown Musculoskeletal: No Tenderness to Palpation of Joints or Extremities, Arthritic Changes - Right Charcot right foot Neurological: Cranial nerves II-XII grossly intact, Deep Tendon Reflexes 2+/4 and Symmetrical, Neuro grossly intact Psych/Mental Status: Normal Affect, Appropriate Laboratory Results 11/05/19 16:23: Troponin I < 0.015 11/05/19 16:23: Phosphorus 3.7 11/05/19 16:38: POC Glucose 181 H 11/05/19 19:25: Troponin I < 0.015 11/05/19 22:28: POC Glucose 178 H 11/06/19 05:23: WBC 5.4, RBC 3.09 L, Hgb 9.6 L, Hct 31.1 L, MCV 100.6 H, MCH 31.1, MCHC 30.9 L, RDW Std Deviation 54.3 H, RDW Coeff of Abdoul 15.5 H, Plt Count 204, MPV 11.0 11/06/19 05:23: Sodium 139, Potassium 4.6, Chloride 100, Carbon Dioxide 36.0 H, Anion Gap 3 L, BUN 23 H, Creatinine 2.91 H, Estim Creat Clear Calc 21.82, Est GFR (MDRD) Af Amer 21 L, Est GFR (MDRD) Non-Af 18 L, BUN/Creatinine Ratio 7.9 L, Glucose 222 H, Calcium 9.1, Phosphorus 3.6, Magnesium 2.4, Total Bilirubin 0.50, AST 16, ALT 24, Alkaline Phosphatase 130 H, Total Protein 6.6, Albumin 2.7 L, Globulin 3.9, Albumin/Globulin Ratio 0.7 L, Triglycerides 114, Cholesterol 170, LDL Cholesterol 73, VLDL Cholesterol 23, HDL Cholesterol 74 11/06/19 06:34: POC Glucose 182 H 11/06/19 11:11: POC Glucose 271 H Current Medications Acetaminophen (Tylenol) 650 mg PO Q6H PRN PRN PRN Reason: Mild Pain (scale 0-3)/T>100.7 Albuterol Sulfate (Ventolin Aerosols) 2.5 mg INHALATION Q2H PRN PRN PRN Reason: SOB/Wheezing Aspirin (Ecotrin) 81 mg PO DAILY@0800 [facility] Last Admin: 11/06/19 09:14 Dose: 81 mg Documented by: Atorvastatin Calcium (Lipitor) 80 mg PO QHS [facility] Last Admin: 11/05/19 22:41 Dose: 80 mg Documented by: Citalopram Hydrobromide (Celexa) 40 mg PO DAILY [facility] Last Admin: 11/06/19 09:14 Dose: 40 mg Documented by: Famotidine (Pepcid) 20 mg PO DAILY [facility] Last Admin: 11/06/19 09:16 Dose: 20 mg Documented by: Furosemide (Lasix) 80 mg PO DAILY [facility] Last Admin: 11/06/19 09:15 Dose: 80 mg Documented by: Gabapentin (Neurontin) 300 mg PO TuThSa@1000 [facility] Last Admin: 11/05/19 22:40 Dose: 300 mg Documented by: Glucagon () 1 mg IM .X1 PRN PRN Reason: Hypoglycemia Heparin Sodium (Porcine) (Heparin Na) 5,000 unit SC Q12 [facility] Dextrose (Dextrose 10%-Water) 250 mls @ 999 mls/hr IV .Q16M PRN; Protocol PRN Reason: HYPOGLYCEMIA Insulin Glargine (Lantus (Bkc)) 10 units SC BID [facility] Last Admin: 11/06/19 09:14 Dose: 10 u Documented by: Insulin Human Lispro (Humalog Kwikpen (Bkc)) 0 unit SC TIDAC [facility]; Protocol Last Admin: 11/06/19 11:12 Dose: 3 u Documented by: Levothyroxine Sodium (Synthroid) 137 mcg PO DAILY@0600 [facility] Last Admin: 11/06/19 05:54 Dose: 137 mcg Documented by: Magnesium Hydroxide (Milk Of Magnesia) 30 ml PO DAILY PRN PRN PRN Reason: Constipation Melatonin (Melatonin) 3 mg PO QHS PRN PRN PRN Reason: INSOMNIA Metoprolol Tartrate (Lopressor (Beta Gloria)) 25 mg PO BID [facility] Last Admin: 11/06/19 09:16 Dose: 25 mg Documented by: Morphine Sulfate () 2 mg IV Q3H PRN PRN PRN Reason: Pain Score 6-10/10 Nitroglycerin (Nitrostat) 0.4 mg SUBLINGUAL Q5M PRN PRN Reason: CARDIAC/CHEST PAIN Ondansetron HCl (Zofran) 4 mg IV Q8H PRN PRN PRN Reason: NAUSEA/VOMITING Senna/Docusate Sodium (Senokot-S, Lakisha-Colace) 2 tablet PO BID PRN PRN PRN Reason: Constipation Simethicone (Mylicon) 80 mg PO PCHS [facility] Last Admin: 11/06/19 11:12 Dose: 80 mg Documented by: Sodium Chloride () 10 - 40 ml IV UD PRN PRN Reason: SALINE FLUSH Assessment/Plan This patient was seen in conjunction with Ayesha MANRIQUE. I have independently interviewed and examined the patient and reviewed pertinent history, examination findings, laboratory and plan of management. I have reviewed the note and agree with the documented findings with the few additional points. In brief, patient is admitted for atypical chest pain with history of non-STEMI 2014. At that time cardiac cath was not done because of CKD/ESRD and concern for contrast-induced nephropathy. Noninvasive stress test was negative. Patient had cardiac cath in January 2019 reported as EF 65% with stage I diastolic dysfunction. Mild TR, mild MR, mildly dilated right ventricle, moderate pulmonary hypertension RVSP 50 mmHg. This time, serial troponin enzymes negative. No acute EKG changes for ischemia. Patient was seen by baseball inspector and scheduled for stress and echo tomorrow a.m. ESRD on hemodialysis, Dr. Pineda is on consult. Patient has other comorbidities including valvular heart disease, mild MR, mild TR, chronic diastolic heart failure, type 1 diabetes mellitus with diabetic nephropathy and neuropathy. Hypertension, dyslipidemia, hypothyroidism, chronic stable asthma, right Charcot foot anxiety and depression, sleep apnea on CPAP, anemia of chronic disease and GERD: Multiple comorbidities complicates the present care and expect difficult and delay recovery I have discussed my assessment with Ayesha MANRIQUE and orders have been reviewed. Code Visit Inpatient E&M: 60202 Subs Hosp L2
--- NOTE | 2019-11-06 11:13 | ECHOCS_ITS ---
Reason For Study: CP Procedure This was a 2D Doppler, Color Flow transthoracic echocardiogram. The study was technically difficult. Contrast injection was performed. Exam performed portable in patient room. Left Ventricle Normal LV size. Left ventricular systolic function is normal. The estimated ejection fraction is 65 %. No evidence for diastolic dysfunction. No regional wall motion abnormalities noted. Right Ventricle Normal RV size. Normal systolic function. Atria The left atrium is mildly enlarged. Normal right atrium. No doppler evidence for ASD. Mitral Valve There is mild mitral annular calcification. Mild focal mitral valve calcification of the anterior leaflet. Mild (1+) mitral valve insufficiency. Tricuspid Valve Normal tricuspid valve. Trivial tricuspid valve insufficiency. Unable to estimate RV systolic pressure/pulmonary artery pressure due to technically difficult study. Aortic Valve Trisinus/trileaflet aortic valve. Mild focal aortic valve calcification. Pulmonic Valve The pulmonic valve is not well visualized. Great Vessels Normal sized aortic root. Pericardium/Pleural No pericardial effusion. Medication Diluted definity 2ml given slow IV push to enhance endocardial definition. MMode/2D Measurements & Calculations LVIDd: 4.9 cm IVSd: 0.99 cm Ao root diam: 2.8 cm LVIDs: 3.1 cm LVPWd: 1.0 cm FS: 36.4 % LAV(MOD-bp): 43.6 ml LA A4 area: 16.2 cm2 RA A4 area: 11.7 cm2 LAV(MOD-bp) Indexed: 27.2 ml/m2 LAV(MOD-sp2): 42.8 ml LAV(MOD-sp4): 42.8 ml Time Measurements MV dec time: 0.19 sec Doppler Measurements & Calculations MV E max aaron: 96.5 cm/sec Lat Peak E' Aaron: 7.3 cm/sec Med Peak E' Aaron: 7.4 cm/sec MV A max aaron: 81.4 cm/sec E/E' lat: 13.2 E/E' med: 13.0 MV E/A: 1.2 MV V2 max: 113.6 cm/sec MV P1/2t max aaron: 112.7 cm/sec Ao V2 max: 149.5 cm/sec MV max P.2 mmHg MV P1/2t: 89.2 msec Ao max P.9 mmHg MV V2 mean: 64.9 cm/sec MV dec slope: 369.8 cm/sec2 MV mean P.0 mmHg MV V2 VTI: 35.1 cm MVA(P1/2t): 2.5 cm2 LV V1 max: 97.5 cm/sec PA V2 max: 69.3 cm/sec LV V1 max P.8 mmHg Interpretation Summary The study was technically difficult. Contrast injection was performed. Left ventricular systolic function is normal. The estimated ejection fraction is 65 %. The left atrium is mildly enlarged. There is mild mitral annular calcification. Mild focal mitral valve calcification of the anterior leaflet. Mild (1+) mitral valve insufficiency. Trivial tricuspid valve insufficiency. Mild focal aortic valve calcification. Unable to estimate RV systolic pressure/pulmonary artery pressure due to technically difficult study. No evidence for diastolic dysfunction. Ordering Physician: Edouard, Ayesha Referring Physician: Hyun Cleaning Performed By: Kvng Cerna RCS
[2019-11-06 11:36] LABS: Bedside Glucose 271 mg/dL (70-110)
--- NOTE | 2019-11-06 11:59 | PN.CARD_ITS ---
Subjectve: The patient is awake and alert. She states she is still had waxing and waning chest discomfort as well as back discomfort as well as abdominal discomfort. She believes her abdominal gas is improving somewhat. He underwent hemodialysis yesterday without any obvious adverse event. Objective: Vital Signs Temp Pulse Resp BP Pulse Ox 98.0 F 75 18 113/63 96 11/06/19 09:35 11/06/19 09:35 11/06/19 09:35 11/06/19 09:35 11/06/19 09:35 Oxygen Flow Rate (L/min) 2 Oxygen Delivery Method Room Air Weight: 144 lb 9.972 oz Body Mass Index (BMI) 29.2 Finger Stick Blood Glucose 152 Intake and Output for Last 24 Hours 11/04/19 11/05/19 11/06/19 23:59 23:59 23:59 Intake Total 615 / 855 835 / 835 Output Total 2150 / 2150 Balance 615 / -1295 -1315 / -1315 General: Awake, Alert, Oriented x 3, Cooperative, No Acute Distress HEENT: Atraumatic, Normocephalic, PERRL, EOMI, Sclera Non Icteric Oral: Moist Mucosa Neck: Supple, Good ROM, No JVD Lungs: Diminished Zbigniew Bases, - - Improved compared to the previous examination Cardiovascular: Regular Rhythm, Normal S1, Normal S2 Abdomen: Bowel Sounds Present, Soft, Non Tender Extremities: No edema Psych/Mental Status: Appropriate 11/05/19 11:44: WBC 10.8, RBC 3.27 L, Hgb 10.5 L, Hct 32.3 L, MCV 98.8, MCH 32.1 H, MCHC 32.5, Plt Count 235, MPV 11.5, Immature Gran % (Auto) 0.600, Neut % (Auto) 80.4 H, Lymph % (Auto) 7.4 L, Barnes % (Auto) 8.1, Eos % (Auto) 2.8, Baso % (Auto) 0.7, Absolute Neuts (auto) 8.7 H, Nucleated RBC % 0 11/05/19 11:44: Sodium 136, Potassium 4.6, Chloride 99, Carbon Dioxide 32.0, Anion Gap 5, BUN 40 H, Creatinine 3.94 H, Est GFR (MDRD) Af Amer 15 L, Est GFR (MDRD) Non-Af 12 L, BUN/Creatinine Ratio 10.2, Glucose 223 H, Calcium 9.1, Troponin I < 0.015 11/05/19 16:23: Troponin I < 0.015 11/05/19 16:23: Phosphorus 3.7 11/05/19 19:25: Troponin I < 0.015 11/06/19 05:23: WBC 5.4, RBC 3.09 L, Hgb 9.6 L, Hct 31.1 L, MCV 100.6 H, MCH 31.1, MCHC 30.9 L, Plt Count 204, MPV 11.0 11/06/19 05:23: Sodium 139, Potassium 4.6, Chloride 100, Carbon Dioxide 36.0 H, Anion Gap 3 L, BUN 23 H, Creatinine 2.91 H, Est GFR (MDRD) Af Amer 21 L, Est GFR (MDRD) Non-Af 18 L, BUN/Creatinine Ratio 7.9 L, Glucose 222 H, Calcium 9.1, Phosphorus 3.6, Magnesium 2.4, Total Bilirubin 0.50, Triglycerides 114, Cholesterol 170, LDL Cholesterol 73, VLDL Cholesterol 23, HDL Cholesterol 74 Rhythm: Sinus rhythm EKG: Sinus rhythm; no acute ECG changes Medical Necessity - Tobacco Use Smoking Status: Never smoker Tobacco Use: Non-smoker Assessment/Plan 1. Chest pain/right shoulder pain The etiology of the patient's pain is uncertain. It does appear to be somewhat typical, even taking into consideration her history of diabetes mellitus, with respect to symptoms compatible with an acute coronary syndrome. Her troponin I levels have been negative. Her ECG is demonstrated no new acute ECG changes. At the present time she will be asked to have an exercise tolerance test/imaging study to compare to her previous study. Depending upon the findings she may or may not need further evaluation in the cardiac catheterization laboratory versus noncardiac evaluation. 2. Non-ST segment elevation AZ-remote She had previously undergone evaluation in 2014 for concerns of abnormal cardiac enzymes. At that time it was thought she may have had a non-ST segment elevation [place]-type II event. She underwent noninvasive testing, as it was thought not to proceed with diagnostic cardiac catheterization at that [id number] upon concerns of IV contrast related nephropathy and worsening her underlying renal insufficiency. Her exercise tolerance test, as noted, was considered negative and thus she has gone since that time without the need for invasive evaluation or care. At the moment her discomfort is somewhat atypical. Her cardiac enzymes have been negative thus far. Her ECG is demonstrated no acute changes thus far. Again she will undergo further evaluation with an exercise tolerance test/imaging study. Hopefully this will help guide further cardiac versus noncardiac evaluation. 3. Mitral valve regurgitation She can be followed by history, exam, and echocardiogram. 4. CHF There has been concerns in the past that she may have an element of diastolic mediated CHF. She has been treated medically and with the assistance of hemodialysis. At the moment she does not appear to have any acute symptoms. Her examination does appear to be somewhat improved since her dialysis yesterday. 5. Hyperlipidemia She should continue risk factor evaluation and care. 6. Hypertension Her blood pressure can be followed. Her medicines can be adjusted, taking into consideration her renal insufficiency, to help control her blood pressure. 7. Pulmonary hypertension Based upon her previous study she does have an element of pulmonary hypertension. This may be secondary to noncardiovascular issues. She will continue medical management/support as needed. This can be reassessed with a transthoracic echocardiogram. 8. Diabetes mellitus She will continue under the care of internal medicine. 9. Chronic renal insufficiency She does have a history of chronic renal sufficiency on chronic hemodialysis. She will continue under the care of nephrology. Comment: The above was discussed and reviewed with the patient and the [facility] staff. This note was generated using a voice recognition system and there may be incorrect words, spelling or punctuation that were not noted when reviewing the office note prior to saving.
[2019-11-06 17:01] LABS: Bedside Glucose 338 mg/dL (70-110)
[2019-11-06] MEDS: Atorvastatin Calcium 80 MG Tablet PO (22:22)
[2019-11-06] MEDS: Heparin Injection (Vial) 5,000 UNIT/ML VIAL 5000 UNIT SC (22:29)
[2019-11-06 22:30] LABS: Bedside Glucose 341 mg/dL (70-110)
[2019-11-07] VITALS (10 sets, daily range): BP systolic 119–132; BP diastolic 57–65; PULSE 61–78; RESP 14–16; TEMP 35.9–36.6; O2SAT 94–100
[2019-11-07] MEDS: Levothyroxine 137 MCG Tablet PO (05:30)
[2019-11-07] MEDS: Aspirin E.C. 81 MG Tablet PO (05:30)
--- NOTE | 2019-11-07 05:55 | EKG12_ITS ---
Test Reason : AM EKG Blood Pressure : / mmHG Vent. Rate : 066 BPM Atrial Rate : 066 BPM P-R Int : 122 ms QRS Dur : 086 ms QT Int : 438 ms P-R-T Axes : 031 007 027 degrees QTc Int : 459 ms Normal sinus rhythm Normal ECG When compared with ECG of 06-NOV-2019 10:24, MANUAL COMPARISON REQUIRED, DATA IS UNCONFIRMED Confirmed by JENNYFER SARKAR, JORDAN ([id number]), editor continuity and script SALOME MA ([id number]) on 11/08/2019 8:39:00 AM Referred By: DR COVARRUBIAS Confirmed By:JORDAN BURGER MD
[2019-11-07 06:03] LABS: Hematocrit 30.7 % (37-47); Hemoglobin 9.5 g/dL (12.0-15.0); Mean Corp Hgb Conc 30.9 g/dL (32-36); Mean Corpuscular Hgb 31.1 pg (27.0-32.0); Mean Corpuscular Volume 100.7 fL (81-99); Mean Platelet Vol. 10.9 fl (6.2-12.0); Platelet Count 199 K/mm3 (150-450); RBC Distribution Width CV 15.6 % (11.6-14.6); Red Blood Count 3.05 M/mm3 (4.2-5.4)
[2019-11-07 06:35] LABS: Bedside Glucose 226 mg/dL (70-110)
[2019-11-07 06:55] LABS: Anion Gap 6 (5-15); BUN 49 mg/dL (7-18); Calcium,Total 9.2 mg/dL (8.5-10.1); Chloride 96 mmol/L (98-107); Creatinine, Serum 4.44 mg/dL (0.55-1.02); EST Glomerular Filtration Rate 11 mL/min (>60); Est Glom Filt Rate - Afr Amer 13 mL/min (>60); Estimated Creatinine Clearance 14.32 ml/min; Glucose 248 mg/dL (74-106); Potassium 5.1 mmol/L (3.5-5.1); Sodium Level 131 mmol/L (136-145)
--- NOTE | 2019-11-07 12:11 | NURSING ---
[facility] late due to patient being off floor for stress test.
--- NOTE | 2019-11-07 12:33 | CASEMGMT ---
RN CM Assessment Note Presentation: chest pain Intro role of CM and purpose of RN CM assessment. Pt is awake, alert and able to participate in assessment. Demographics, PCP and Pharmacy verified. Pt states she lives with her daughter and daughter assists as pet care attendant, provides meals, transportation. Pt plans to return home on dc. Pt declined PT evaluations stating she does not need. Pt states she uses walker at home. PCP: Dr. Cleaning Specialists: Dr. Pineda, Dr. Van Preferred Pharmacy: [facility] [place] Insurance: [facility]. Pt states her CM Sherry @ [employer] is assisting her with [facility] application and applying for [place] Waiver Program to eventually have aides for home. Prescription Benefit: yes LNOK: Daughter, Dee Dee Meléndez Living Arrangements: Lives in 3 story home, first floor set up. Daughter assists with care needs. Currently this arrangement is working, however pt states in future she would like to have aides through Waiver program. Dialysis: TTS, [facility]. Daughter drives to dialysis Transportation: daughter drives patient DME: walker, grab bars in shower, shower chair, nebulizer HHC[facility]: [facility], [facility], [facility] past Patient DC goals: Home DC PLAN: Anticipate Home on dc. CM advised pt if concerns or needs re: dc planning arise, CM is available to return and speak with pt. Marta LEE RN ACM
[2019-11-07] MEDS: Insulin Lispro 100 UNIT/ML INSULN.PEN SC (12:38)
[2019-11-07] MEDS: Citalopram 40 MG TABLET PO (12:39)
[2019-11-07] MEDS: Metoprolol Tartrate 25 MG Tablet PO (12:39)
[2019-11-07] MEDS: Famotidine 20 MG Tablet PO (12:39)
[2019-11-07] MEDS: Heparin Injection (Vial) 5,000 UNIT/ML VIAL 5000 UNIT SC (12:49)
[2019-11-07 12:50] LABS: Bedside Glucose 274 mg/dL (70-110)
[2019-11-07] MEDS: Furosemide 80 MG Tablet PO (12:50)
--- NOTE | 2019-11-07 12:52 | STRESSREP ---
Stress Test Report Pharmacologic myocardial perfusion stress test. 58-year-old lady with a history of chest pain. Medications aspirin, Lipitor, metoprolol, Neurontin. Stress protocol: Resting EKG demonstrates normal sinus rhythm with a rate of 70 bpm normal intervals are noted resting blood pressures 114/60 mmHg. 0.4 mg of regadenoson was infused per usual protocol followed by rapid intravenous saline flush injection continuous EKG monitoring was performed. The maximum heart rate attained was 89 bpm which was 54% of maximum predicted heart rate the maximum workload was 1 metabolic equivalent. At rest there were no ST or T wave changes noted to suggest abnormal flow reserve at peak infusion nonspecific ST-T wave changes were noted with no meet the criteria for ischemia. No clinical angina was noted. Myocardial perfusion protocol. 12.0 mCi of technetium 99m sestamibi was injected at rest. 0.4 mg of regadenoson was infused per usual protocol peak infusion 35.0 mCi of technetium 99m sestamibi was injected stress images were obtained stress and rest images were reconstructed and compared in the short axis vertical long horizontal long axis. Gated images were also obtained Perfusion SPECT analysis: Review of the stress images demonstrate normal uptake of tracer noted in all areas of the myocardium. The resting images similar demonstrate normal uptake of tracer noted in all areas of myocardium. No reversibility is noted suggest ischemia. Gated SPECT analysis: The gated ejection fraction is 65%. Conclusion: Normal pharmacologic myocardial perfusion stress test. Preserved ejection fraction.
--- NOTE | 2019-11-07 13:34 | PCM.CONS.R ---
Consultation - Renal 11/07/19 PCP/ Referring MD: Requesting physician: Nichole Pedroza DO Primary care physician: Hyun Cleaning MD Reason for Consultation:: ESRD HD TTS - History of Present Illness History of Present Illness: The patient is a 58 year old F with ESRD due to diabetes mellitus type 1, hx hypertension, hyperlipidemia, anemia of chronic kidney disease, asthma, obstructive sleep apnea, morbid obesity, diabetic peripheral polyneuropathy, Charcot foot on the right, diabetic retinopathy, pulmonary hypertension, Anxiety/depression, osteoporosis, nonrheumatic mitral valve regurgitation, coronary artery disease and stage I diastolic dysfunction with chronic diastolic congestive heart failure presented to the emergency department at [facility] on 11/05/2019 complaining of chest pain that has been continuous for at least 48 hours. The chest pain was located over the upper sternum and was described as heaviness. It came on while she was sitting watching television. She denies diaphoresis. She does have nausea and shortness of breath. Her last stress test was in 2014 and it was negative. EKG in the emergency room revealed normal sinus rhythm with no ST segment elevation and no significant ST segment depression. Chest x-ray per my review appeared to have a poor inspiratory effort with some pulmonary vascular congestion. There were no pleural effusions noted. The radiologist interpreted it as increased opacity in the lower lung aquino possibly secondary to edema versus infiltrates. She received her hemodialysis on day of admission 11/05/19 since she did not get her treatment at chronic center before going to the ER. Her next dialysis is due tomorrow. She had a stress test done this morning that was unremarkable for ischemia. - Allergies Allergies: Allergies mirtazapine [From Remeron] Allergy (Severe, Verified 11/05/19 11:03) Kidney failure methadone Allergy (Intermediate, Verified 11/05/19 11:03) Rash prochlorperazine edisylate [From Compazine] Adverse Reaction (Verified 11/05/19 11:03) Other tarditive dyskinesia prochlorperazine maleate [From Compazine] Adverse Reaction (Verified 11/05/19 11:03) Other - Current Medications Current Medications: Current Medications Acetaminophen (Tylenol) 650 mg PO Q6H PRN PRN PRN Reason: Mild Pain (scale 0-3)/T>100.7 Albuterol Sulfate (Ventolin Aerosols) 2.5 mg INHALATION Q2H PRN PRN PRN Reason: SOB/Wheezing Aspirin (Ecotrin) 81 mg PO DAILY@0800 [facility] Last Admin: 11/07/19 05:30 Dose: 81 mg Documented by: Atorvastatin Calcium (Lipitor) 80 mg PO QHS [facility] Last Admin: 11/06/19 22:22 Dose: 80 mg Documented by: Citalopram Hydrobromide (Celexa) 40 mg PO DAILY [facility] Last Admin: 11/07/19 12:39 Dose: 40 mg Documented by: Famotidine (Pepcid) 20 mg PO DAILY [facility] Last Admin: 11/07/19 12:39 Dose: 20 mg Documented by: Furosemide (Lasix) 80 mg PO DAILY [facility] Last Admin: 11/07/19 12:50 Dose: 80 mg Documented by: Gabapentin (Neurontin) 300 mg PO TuThSa@1000 [facility] Last Admin: 11/05/19 22:40 Dose: 300 mg Documented by: Glucagon () 1 mg IM .X1 PRN PRN Reason: Hypoglycemia Heparin Sodium (Porcine) (Heparin Na) 5,000 unit SC Q12 [facility] Last Admin: 11/07/19 12:49 Dose: 5,000 unit Documented by: Dextrose (Dextrose 10%-Water) 250 mls @ 999 mls/hr IV .Q16M PRN; Protocol PRN Reason: HYPOGLYCEMIA Insulin Glargine (Lantus (Bkc)) 10 units SC BID [facility] Last Admin: 11/07/19 12:37 Dose: 10 u Documented by: Insulin Human Lispro (Humalog Kwikpen (Bkc)) 0 unit SC TIDAC [facility]; Protocol Last Admin: 11/07/19 12:38 Dose: 3 u Documented by: Levothyroxine Sodium (Synthroid) 137 mcg PO DAILY@0600 [facility] Last Admin: 11/07/19 05:30 Dose: 137 mcg Documented by: Magnesium Hydroxide (Milk Of Magnesia) 30 ml PO DAILY PRN PRN PRN Reason: Constipation Melatonin (Melatonin) 3 mg PO QHS PRN PRN PRN Reason: INSOMNIA Metoprolol Tartrate (Lopressor (Beta Gloria)) 25 mg PO BID [facility] Last Admin: 11/07/19 12:39 Dose: 25 mg Documented by: Morphine Sulfate () 2 mg IV Q3H PRN PRN PRN Reason: Pain Score 6-10/10 Nitroglycerin (Nitrostat) 0.4 mg SUBLINGUAL Q5M PRN PRN Reason: CARDIAC/CHEST PAIN Ondansetron HCl (Zofran) 4 mg IV Q8H PRN PRN PRN Reason: NAUSEA/VOMITING Senna/Docusate Sodium (Senokot-S, Lakisha-Colace) 2 tablet PO BID PRN PRN PRN Reason: Constipation Simethicone (Mylicon) 80 mg PO [facility] Last Admin: 11/07/19 12:40 Dose: 80 mg Documented by: Sodium Chloride () 10 - 40 ml IV UD PRN PRN Reason: SALINE FLUSH - Past Medical History Past Medical History (Chronic Problems): Chronic Problems (Last Reviewed 11/05/19 @ 16:13 by Therese Pedroza DO) Pulmonary hypertension (Chronic) Morbid obesity (Chronic) Diabetic retinopathy (Chronic) Anemia of chronic renal failure, stage 5 (Chronic) DEYA (obstructive sleep apnea) (Chronic) End-stage renal disease on hemodialysis (Chronic) Kidney failure (Chronic) Seasonal allergies (Chronic) Anxiety and depression (Chronic) Arthritis (Chronic) Cataracts, bilateral (Chronic) Chronic headaches (Chronic) Hormone deficiency (Chronic) Osteoporosis (Chronic) Diabetic nephropathy associated with type 1 diabetes mellitus (Chronic) Nonrheumatic mitral valve regurgitation (Chronic) History of non-ST elevation myocardial infarction (NSTEMI) (Chronic) Atherosclerotic heart disease of kaibab coronary artery without angina pectoris (Chronic) Diabetes type I (Chronic) HTN (hypertension) (Chronic) Hyperlipidemia (Chronic) Under care of cardiology. Will need to update labs. Hypothyroidism (Chronic) Thyroid replacement d/cd although not sure why. Will need to check labs and determine why this is. Patient unable to answer. Diabetic polyneuropathy (Chronic) Asthma (Chronic) Charcot's joint of right foot (Chronic) - Past Surgical History Surgical History: dilatation and curettage, - - LUE KATHY - Social History Smoking Status: Never smoker Alcohol: None Drugs: None - Family History Maternal Family History: Family History (Last Reviewed 07/13/19 @ 12:39 by Corina Jackman) Mother Arthritis Cancer Hormone deficiency Thyroid disorder Osteoporosis Skin cancer Father Arthritis Diabetes Heart disease Hypertension High cholesterol CVA (cerebral vascular accident) History Items: Cancer - lung, melanoma Paternal Family History: Family History (Last Reviewed 07/13/19 @ 12:39 by Corina Jackman) Mother Arthritis Cancer Hormone deficiency Thyroid disorder Osteoporosis Skin cancer Father Arthritis Diabetes Heart disease Hypertension High cholesterol CVA (cerebral vascular accident) History Items: Diabetes Review of Systems Constitutional: Denies: Anorexia, Chills, Fever, Weakness, Fatigue Cardiovascular: Denies: Chest Pain Respiratory: Denies: Cough, Shortness of breath at rest Gastrointestinal: Denies: Nausea, Vomiting Genitourinary: Denies: Dysuria Psychiatric: Reports: Anxiety, Depression Hematologic/ Lymphatic: Reports: Anemia - Physical Exam Vitals/I&O's: Vital Signs Temp Pulse Resp BP Pulse Ox 97.8 F 74 16 128/60 H 94 11/07/19 12:30 11/07/19 12:39 11/07/19 12:30 11/07/19 12:39 11/07/19 12:30 Oxygen Flow Rate (L/min) 2 Oxygen Delivery Method Room Air Weight: 65.7 kg Body Mass Index (BMI) 29.2 Finger Stick Blood Glucose 152 Intake and Output for Last 24 Hours 11/05/19 11/06/19 11/07/19 23:59 23:59 23:59 Intake Total 615 / 855 1435 / 1675 290 / 290 Output Total 2450 / 2500 50 / 50 Balance 615 / -1295 -1015 / -825 240 / 240 General: Alert, Oriented x3, Cooperative, No apparent distress HEENT: PERRLA, EOMI Lungs: - - crackles rt base Cardiovascular: Regular rate Abdomen: Bowel Sounds Present, Soft, Non Tender, Non-Distended Extremities: No edema Skin: No rashes Psych/Mental Status: Alert and oriented to time, place, person, mood and affect Laboratory Results 11/06/19 16:48: POC Glucose 338 H 11/06/19 22:17: POC Glucose 341 H 11/07/19 05:20: WBC 6.0, RBC 3.05 L, Hgb 9.5 L, Hct 30.7 L, MCV 100.7 H, MCH 31.1, MCHC 30.9 L, RDW Std Deviation 55.0 H, RDW Coeff of Abdoul 15.6 H, Plt Count 199, MPV 10.9 11/07/19 05:20: Sodium 131 L, Potassium 5.1, Chloride 96 L, Carbon Dioxide 29.0, Anion Gap 6, BUN 49 H, Creatinine 4.44 H, Estim Creat Clear Calc 14.32, Est GFR (MDRD) Af Amer 13 L, Est GFR (MDRD) Non-Af 11 L, BUN/Creatinine Ratio 11.0, Glucose 248 H, Calcium 9.2 11/07/19 05:39: POC Glucose 226 H 11/07/19 12:36: POC Glucose 274 H Clinical Impression(s) from Imaging Studies Chest X-Ray 11/05/19 11:36 IMPRESSION: Lower lung edema or infiltrates. Electronically Signed: Dallas Armas MD at 12:21 EST , Service support , Current Medications Acetaminophen (Tylenol) 650 mg PO Q6H PRN PRN PRN Reason: Mild Pain (scale 0-3)/T>100.7 Albuterol Sulfate (Ventolin Aerosols) 2.5 mg INHALATION Q2H PRN PRN PRN Reason: SOB/Wheezing Aspirin (Ecotrin) 81 mg PO DAILY@0800 [facility] Last Admin: 11/07/19 05:30 Dose: 81 mg Documented by: Atorvastatin Calcium (Lipitor) 80 mg PO QHS [facility] Last Admin: 11/06/19 22:22 Dose: 80 mg Documented by: Citalopram Hydrobromide (Celexa) 40 mg PO DAILY [facility] Last Admin: 11/07/19 12:39 Dose: 40 mg Documented by: Famotidine (Pepcid) 20 mg PO DAILY [facility] Last Admin: 11/07/19 12:39 Dose: 20 mg Documented by: Furosemide (Lasix) 80 mg PO DAILY [facility] Last Admin: 11/07/19 12:50 Dose: 80 mg Documented by: Gabapentin (Neurontin) 300 mg PO TuThSa@1000 [facility] Last Admin: 11/05/19 22:40 Dose: 300 mg Documented by: Glucagon () 1 mg IM .X1 PRN PRN Reason: Hypoglycemia Heparin Sodium (Porcine) (Heparin Na) 5,000 unit SC Q12 [facility] Last Admin: 11/07/19 12:49 Dose: 5,000 unit Documented by: Dextrose (Dextrose 10%-Water) 250 mls @ 999 mls/hr IV .Q16M PRN; Protocol PRN Reason: HYPOGLYCEMIA Insulin Glargine (Lantus (Bk)) 10 units SC BID [facility] Last Admin: 11/07/19 12:37 Dose: 10 u Documented by: Insulin Human Lispro (Humalog Kwikpen (Bk)) 0 unit SC TIDAC [facility]; Protocol Last Admin: 11/07/19 12:38 Dose: 3 u Documented by: Levothyroxine Sodium (Synthroid) 137 mcg PO DAILY@0600 [facility] Last Admin: 11/07/19 05:30 Dose: 137 mcg Documented by: Magnesium Hydroxide (Milk Of Magnesia) 30 ml PO DAILY PRN PRN PRN Reason: Constipation Melatonin (Melatonin) 3 mg PO QHS PRN PRN PRN Reason: INSOMNIA Metoprolol Tartrate (Lopressor (Beta Gloria)) 25 mg PO BID [facility] Last Admin: 11/07/19 12:39 Dose: 25 mg Documented by: Morphine Sulfate () 2 mg IV Q3H PRN PRN PRN Reason: Pain Score 6-10/10 Nitroglycerin (Nitrostat) 0.4 mg SUBLINGUAL Q5M PRN PRN Reason: CARDIAC/CHEST PAIN Ondansetron HCl (Zofran) 4 mg IV Q8H PRN PRN PRN Reason: NAUSEA/VOMITING Senna/Docusate Sodium (Senokot-S, Lakisha-Colace) 2 tablet PO BID PRN PRN PRN Reason: Constipation Simethicone (Mylicon) 80 mg PO PCHS [facility] Last Admin: 11/07/19 12:40 Dose: 80 mg Documented by: Sodium Chloride () 10 - 40 ml IV UD PRN PRN Reason: SALINE FLUSH Assessment/Plan All Active Problems (Last Reviewed 11/05/19 @ 16:13 by Therese Pedroza DO) Chest pain, unspecified (Acute) Acute on chronic diastolic congestive heart failure (Acute) Acute on chronic anemia (Resolved) Ascites (Resolved) Bone fracture (Resolved) Breast lump (Resolved) DKA (diabetic ketoacidoses) (Resolved) H/O transfusion of whole blood (Resolved) Hyperkalemia (Resolved) Hypoglycemia (Resolved) NSTEMI (non-ST elevated myocardial infarction) (Resolved) Problem with dialysis access (Resolved) Recurrent UTI (Resolved) Syncope (Resolved) 1. ESRD HD THS. Next dialysis Tu 2. Chest pain unremarkable stress test 3. HTN stable 4. DM type 1
--- NOTE | 2019-11-07 14:23 | DCINST_ITS ---
- Discharge Diagnoses Current Active Problems: Current Active and Chronic Problems (Last Reviewed 11/05/19 @ 16:13 by Therese Pedroza DO) Chest pain, unspecified (Acute) Acute on chronic diastolic congestive heart failure (Acute) You will use the following diet at home:: Calorie/Carbohydrate Controlled (specify 1200, 1400, etc) Discharge Activity: Return to Normal Activity Call your doctor if you observe: Shortness of breath, Dizziness, Fainting spells, Chest pain Allergies/Adverse Reactions: Allergies mirtazapine [From Remeron] Allergy (Severe, Verified 11/05/19 11:03) Kidney failure methadone Allergy (Intermediate, Verified 11/05/19 11:03) Rash prochlorperazine edisylate [From Compazine] Adverse Reaction (Verified 11/05/19 11:03) Other tarditive dyskinesia prochlorperazine maleate [From Compazine] Adverse Reaction (Verified 11/05/19 11:03) Other Medications to take at Discharge aspirin 81 mg tablet,delayed release 81 mg PO DAILY 04/08/18 Levothyroxine [Synthroid] 137 mcg PO DAILY 01/14/19 Acetaminophen [Tylenol Tablet] 650 mg PO Q6H PRN PRN tab 01/20/19 insulin glulisine U-100 100 unit/mL subcutaneous solution 1 sliding scale dose SC TIDCM 01/26/19 furosemide 80 mg tablet 80 mg PO DAILY tab 05/27/19 atorvastatin 80 mg tablet 80 mg PO QHS #90 tab 06/16/19 insulin glargine 100 unit/mL (3 mL) subcutaneous pen 10 unit SC BID 90 Days #18 ml 07/04/19 citalopram 40 mg tablet 40 mg PO DAILY #90 tab 07/11/19 gabapentin 300 mg capsule 300 mg PO QODAY cap 08/08/19 Primary Care Physician: Hyun Cleaning MD [Primary Care Provider] - Please follow up with your Primary Care Physician in: 1 Week Test Results: Test results from this visit will be discussed in further detail at your follow-up appointment, if applicable. Please Follow Up With: Dee Dee Pineda DO When: Continue dialysis and follow-up as scheduled Please Follow Up With: Idris Van MD When: 2 weeks, may see RECREATIONAL SPECIALIST/PA Proposed Discharge Date: 11/07/19
--- NOTE | 2019-11-07 14:40 | PCM.DC.SUM ---
<Ayesha Nunn - Last Filed: 11/07/19 14:45> Discharge Date and Diagnosis Date of Admission: 11/05/19 Date of Discharge: 11/07/19 - Primary Discharge Diagnosis Active and Suspected Problems (Last Reviewed 11/05/19 @ 16:13 by Therese Pedroza DO) 1. Chest pain, remote history of NSTEMI- ACS ruled out 2. ESRD on HD 3. Chronic diastolic CHF 4. History of aortic valve disease 5. Type 1 diabetes mellitus with diabetic neuropathy 6. Hypertension 7. Hyperlipidemia 8. Hypothyroidism 9. Asthma 10. Right Charcot foot 11. Anxiety/Depression 12. DEYA 13. GERD 14. 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 Will need to update labs. Hypothyroidism (Chronic) Thyroid replacement d/cd although not sure why. Will need to check labs and determine why this is. Patient unable to answer. Diabetic polyneuropathy (Chronic) Asthma (Chronic) Charcot's joint of right foot (Chronic) Hospital Course and Treatment Imaging Results: Diagnostic Data Chest X-Ray 11/05/19 11:36 IMPRESSION: Lower lung edema or infiltrates. Electronically Signed: Dallas Armas MD at 12:21 EST , Service support , Dr. Van- Cardiology Operations: None Procedures: 2-D Echocardiogram, Stress test Summary of Care Provided: The patient is a 58 year old F admitted 11/05/19 due to chest pain and shortness of breath. 1. Chest pain, remote history of NSTEMI-ACS ruled out. Troponin and EKG negative. Cardiology consulted during admission. Patient underwent nuclear stress test which was negative for ischemia, gated ejection fraction 65%. Continue aspirin, statin. Echo January 2019 demonstrated an EF of 65%, stage I diastolic dysfunction, mild mitral valve insufficiency, mild tricuspid valve insufficiency, RVSP 50 mmHg. Repeat echocardiogram during admission unchanged from prior, EF 65%. Patient denies further chest pain. Follow-up with primary care physician in 1 week. Follow-up with cardiology in 2 weeks. 2. ESRD on HD-nephrology, Dr. Pineda on consult. Continue dialysis as scheduled. 3. Chronic diastolic CHF-continue home Lasix regimen as well as dialysis. No acute exacerbation. 4. History of aortic valve disease- repeat echo as noted above. 5. Type 1 diabetes mellitus with diabetic neuropathy-continue home insulin regimen. 6. Hypertension-stable, continue Lasix regimen. 7. Hyperlipidemia-continue statin. 8. Hypothyroidism-continue Synthroid regimen. 9. Asthma-no exacerbation. Follows with Dr. Mckeon, pulmonary medicine. 10. Right Charcot foot- stable. 11. Anxiety/Depression-continue citalopram regimen. 12. DEYA-continue home CPAP regimen. 13. GERD-continue famotidine regimen. 14. Anemia of chronic disease- stable. General: Alert, Oriented x3, Cooperative HEENT: Atraumatic, PERRLA, EOMI, Normocephalic Neck: Supple, No JVD, Negative Carotid Bruits Lungs: Clear to auscultation, Diminished Cardiovascular: Regular rate, Regular Rhythm, Normal S1, Normal S2, Murmur Abdomen: Bowel Sounds Present, Soft, Non Tender, Non-Distended Extremities: No clubbing, No cyanosis, No edema, Capillary Refill Less than 3 Seconds, - - Right charcot foot Skin: No rashes, No breakdown Musculoskeletal: No Tenderness to Palpation of Joints or Extremities Neurological: Cranial nerves II-XII grossly intact, Neuro grossly intact Psych/Mental Status: Normal Affect, Appropriate Patient seen and examined prior to discharge. Physical assessment as noted above. Patient is stable for discharge with follow up recommendations as noted above. This patient was seen by NATE Luna under the supervision of Dr. Blanco. - Physical Exam Vitals/I&O's: Vital Signs Temp Pulse Resp BP Pulse Ox 97.8 F 74 16 128/60 H 94 11/07/19 12:30 11/07/19 12:39 11/07/19 12:30 11/07/19 12:39 11/07/19 12:30 Oxygen Flow Rate (L/min) 2 Oxygen Delivery Method Room Air Weight: 144 lb 13.499 oz Body Mass Index (BMI) 29.2 Finger Stick Blood Glucose 152 Intake and Output for Last 24 Hours 11/05/19 11/06/19 11/07/19 23:59 23:59 23:59 Intake Total 615 / 855 1435 / 1675 290 / 290 Output Total 2450 / 2500 50 / 50 Balance 615 / -1295 -1015 / -825 240 / 240 Laboratory Results 11/06/19 16:48: POC Glucose 338 H 11/06/19 22:17: POC Glucose 341 H 11/07/19 05:20: WBC 6.0, RBC 3.05 L, Hgb 9.5 L, Hct 30.7 L, MCV 100.7 H, MCH 31.1, MCHC 30.9 L, RDW Std Deviation 55.0 H, RDW Coeff of Abdoul 15.6 H, Plt Count 199, MPV 10.9 11/07/19 05:20: Sodium 131 L, Potassium 5.1, Chloride 96 L, Carbon Dioxide 29.0, Anion Gap 6, BUN 49 H, Creatinine 4.44 H, Estim Creat Clear Calc 14.32, Est GFR (MDRD) Af Amer 13 L, Est GFR (MDRD) Non-Af 11 L, BUN/Creatinine Ratio 11.0, Glucose 248 H, Calcium 9.2 11/07/19 05:39: POC Glucose 226 H 11/07/19 12:36: POC Glucose 274 H Current Medications Acetaminophen (Tylenol) 650 mg PO Q6H PRN PRN PRN Reason: Mild Pain (scale 0-3)/T>100.7 Albuterol Sulfate (Ventolin Aerosols) 2.5 mg INHALATION Q2H PRN PRN PRN Reason: SOB/Wheezing Aspirin (Ecotrin) 81 mg PO DAILY@0800 GEE Last Admin: 11/07/19 05:30 Dose: 81 mg Documented by: Atorvastatin Calcium (Lipitor) 80 mg PO QHS [facility] Last Admin: 11/06/19 22:22 Dose: 80 mg Documented by: Citalopram Hydrobromide (Celexa) 40 mg PO DAILY [facility] Last Admin: 11/07/19 12:39 Dose: 40 mg Documented by: Famotidine (Pepcid) 20 mg PO DAILY [facility] Last Admin: 11/07/19 12:39 Dose: 20 mg Documented by: Furosemide (Lasix) 80 mg PO DAILY [facility] Last Admin: 11/07/19 12:50 Dose: 80 mg Documented by: Gabapentin (Neurontin) 300 mg PO TuThSa@1000 [facility] Last Admin: 11/05/19 22:40 Dose: 300 mg Documented by: Glucagon () 1 mg IM .X1 PRN PRN Reason: Hypoglycemia Heparin Sodium (Porcine) (Heparin Na) 5,000 unit SC Q12 [facility] Last Admin: 11/07/19 12:49 Dose: 5,000 unit Documented by: Dextrose (Dextrose 10%-Water) 250 mls @ 999 mls/hr IV .Q16M PRN; Protocol PRN Reason: HYPOGLYCEMIA Insulin Glargine (Lantus ([facility])) 10 units SC BID [facility] Last Admin: 11/07/19 12:37 Dose: 10 u Documented by: Insulin Human Lispro (Humalog Kwikpen ([facility])) 0 unit SC TIDAC [facility]; Protocol Last Admin: 11/07/19 12:38 Dose: 3 u Documented by: Levothyroxine Sodium (Synthroid) 137 mcg PO DAILY@0600 [facility] Last Admin: 11/07/19 05:30 Dose: 137 mcg Documented by: Magnesium Hydroxide (Milk Of Magnesia) 30 ml PO DAILY PRN PRN PRN Reason: Constipation Melatonin (Melatonin) 3 mg PO QHS PRN PRN PRN Reason: INSOMNIA Metoprolol Tartrate (Lopressor (Beta Gloria)) 25 mg PO BID [facility] Last Admin: 11/07/19 12:39 Dose: 25 mg Documented by: Morphine Sulfate () 2 mg IV Q3H PRN PRN PRN Reason: Pain Score 6-10/10 Nitroglycerin (Nitrostat) 0.4 mg SUBLINGUAL Q5M PRN PRN Reason: CARDIAC/CHEST PAIN Ondansetron HCl (Zofran) 4 mg IV Q8H PRN PRN PRN Reason: NAUSEA/VOMITING Senna/Docusate Sodium (Senokot-S, Lakisha-Colace) 2 tablet PO BID PRN PRN PRN Reason: Constipation [facility]ethic[facility] ([facility]licon) [facility] Last Admin: 11/07/19 12:40 Dose: 80 mg Documented by: Sodium Chloride () 10 - 40 ml IV UD PRN PRN Reason: SALINE FLUSH Discharge Diet: Low fat/ Low Cholesterol, Carb Control Diet, Renal Diet Discharge Activity: Return to Normal Activity Call your doctor if you observe: Shortness of breath, Dizziness, Fainting spells, Chest pain Home Medications: Medications to take at Discharge aspirin 81 mg tablet,delayed release 81 mg PO DAILY 04/08/18 Levothyroxine [Synthroid] 137 mcg PO DAILY 01/14/19 Acetaminophen [Tylenol Tablet] 650 mg PO Q6H PRN PRN tab 01/20/19 insulin glulisine U-100 100 unit/mL subcutaneous solution 1 sliding scale dose SC TIDCM 01/26/19 furosemide 80 mg tablet 80 mg PO DAILY tab 05/27/19 atorvastatin 80 mg tablet 80 mg PO QHS #90 tab 06/16/19 insulin glargine 100 unit/mL (3 mL) subcutaneous pen 10 unit SC BID 90 Days #18 ml 07/04/19 citalopram 40 mg tablet 40 mg PO DAILY #90 tab 07/11/19 gabapentin 300 mg capsule 300 mg PO QODAY cap 08/08/19 Primary Care Physician: Hyun Cleaning MD [Primary Care Provider] - Please follow up with your Primary Care Physician in: 1 Week Please Follow Up With: Dee Dee Pineda DO When: Continue dialysis and follow-up as scheduled Please Follow Up With: Idris Van MD When: 2 weeks, may see RN ASSESSMENT/PA Disposition: Home Minutes spent on discharge:: 35 Patient Condition:: Stable Medical Necessity - Tobacco Use Smoking Status: Never smoker Tobacco Use: Non-smoker Meaningful Use Info Meaningful Use Diagnoses (Choose all that apply): None applicable <Nathan Blanco - Last Filed: 11/07/19 15:51> Discharge Date and Diagnosis - Secondary Discharge Diagnosis Chronic Problems (Last Reviewed 11/05/19 @ 16:13 by Therese Pedroza DO) Pulmonary hypertension (Chronic) Morbid obesity (Chronic) Diabetic retinopathy (Chronic) Anemia of chronic renal failure, stage 5 (Chronic) DEYA (obstructive sleep apnea) (Chronic) End-stage renal disease on hemodialysis (Chronic) Kidney failure (Chronic) Seasonal allergies (Chronic) Anxiety and depression (Chronic) Arthritis (Chronic) Cataracts, bilateral (Chronic) Chronic headaches (Chronic) Hormone deficiency (Chronic) Osteoporosis (Chronic) 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 Will need to update labs. Hypothyroidism (Chronic) Thyroid replacement d/cd although not sure why. Will need to check labs and determine why this is. Patient unable to answer. Diabetic polyneuropathy (Chronic) Asthma (Chronic) Charcot's joint of right foot (Chronic) Hospital Course and Treatment Operations: None Procedures: 2-D Echocardiogram, Stress test Summary of Care Provided: Patient seen and examined independently. Data reviewed. I agree with the above note by the nurse practitioner. The patient is a 58 year old F presents with 3-day history of chest pain. Patient on work-up, including EKG, troponins and a stress test. All of which were normal. On exam, patient has no reproducible chest wall tenderness. Reassurance provided to the patient. Patient discharged in stable condition. [] - Physical Exam Vitals/I&O's: Vital Signs Temp Pulse Resp BP Pulse Ox 36.6 C 78 16 128/60 H 94 11/07/19 12:30 11/07/19 14:57 11/07/19 12:30 11/07/19 12:39 11/07/19 12:30 Oxygen Flow Rate (L/min) 2 Oxygen Delivery Method Room Air Weight: 65.7 kg Body Mass Index (BMI) 29.2 Finger Stick Blood Glucose 152 Intake and Output for Last 24 Hours 11/05/19 11/06/19 11/07/19 23:59 23:59 23:59 Intake Total 615 / 855 1435 / 1675 680 / 680 Output Total 2450 / 2500 50 / 50 Balance 615 / -1295 -1015 / -825 630 / 630 General: Alert, No apparent distress HEENT: Atraumatic, Normocephalic Oral: Moist Mucosa, No Gingival or Mucosal Lesions/ Ulcerations Neck: No Nodes, Trachea Midline Lungs: Clear to auscultation, Normal air movement, No rhonchi, No wheeze Cardiovascular: Regular rate, Regular Rhythm, Normal S1, Normal S2, No murmurs Abdomen: Bowel Sounds Present, Soft, Non Tender, Non-Distended, No Hepato-splenomegaly Extremities: - - no reproducible back and or anterior chest wall tenderness. Laboratory Results 11/06/19 16:48: POC Glucose 338 H 11/06/19 22:17: POC Glucose 341 H 11/07/19 05:20: WBC 6.0, RBC 3.05 L, Hgb 9.5 L, Hct 30.7 L, MCV 100.7 H, MCH 31.1, MCHC 30.9 L, RDW Std Deviation 55.0 H, RDW Coeff of Abdoul 15.6 H, Plt Count 199, MPV 10.9 11/07/19 05:20: Sodium 131 L, Potassium 5.1, Chloride 96 L, Carbon Dioxide 29.0, Anion Gap 6, BUN 49 H, Creatinine 4.44 H, Estim Creat Clear Calc 14.32, Est GFR (MDRD) Af Amer 13 L, Est GFR (MDRD) Non-Af 11 L, BUN/Creatinine Ratio 11.0, Glucose 248 H, Calcium 9.2 11/07/19 05:39: POC Glucose 226 H 11/07/19 12:36: POC Glucose 274 H Discharge Diet: Low fat/ Low Cholesterol, Carb Control Diet, Renal Diet Discharge Activity: Return to Normal Activity Call your doctor if you observe: Shortness of breath, Fainting spells, Chest pain Disposition: Home Minutes spent on discharge:: 35 Patient Condition:: Stable Medical Necessity - Tobacco Use Smoking Status: Never smoker Tobacco Use: Non-smoker Meaningful Use Info Meaningful Use Diagnoses (Choose all that apply): None applicable Code Visit OBSV E&M: 07900 Observation care discharge
--- NOTE | 2019-11-07 15:07 | CASEMGMT ---
Patient has a Healthcare Power of Branch Account Manager and a Healthcare Living Will on file at [facility]. Her Healthcare Power of Branch Account Manager is Stephany Meléndez. Moraima TORRES MSW
--- NOTE | 2019-11-07 15:16 | PHA.DC.MR ---
Pharmacy Service has performed discharge medication reconciliation for this patient. Metoprolol tartrate started inpatient, Ayesha does not feel it is needed outpatient. Home Medications aspirin 81 mg tablet,delayed release 81 mg PO DAILY 04/08/18 Levothyroxine [Synthroid] 137 mcg PO DAILY 01/14/19 Acetaminophen [Tylenol Tablet] 650 mg PO Q6H PRN PRN tab 01/20/19 insulin glulisine U-100 100 unit/mL subcutaneous solution 1 sliding scale dose SC TIDCM 01/26/19 furosemide 80 mg tablet 80 mg PO DAILY tab 05/27/19 atorvastatin 80 mg tablet 80 mg PO QHS #90 tab 06/16/19 insulin glargine 100 unit/mL (3 mL) subcutaneous pen 10 unit SC BID 90 Days #18 ml 07/04/19 citalopram 40 mg tablet 40 mg PO DAILY #90 tab 07/11/19 gabapentin 300 mg capsule 300 mg PO QODAY cap 08/08/19 The patient's discharge medication list was reviewed for discrepancies and discrepancies were resolved.
--- NOTE | 2019-11-07 18:00 | PN.CARD_ITS ---
Subjectve: The patient was evaluated earlier this day. She stated overall she was feeling better. She had no new acute complaints. Objective: Vital Signs Temp Pulse Resp BP Pulse Ox 97.8 F 78 16 128/60 H 94 11/07/19 12:30 11/07/19 14:57 11/07/19 12:30 11/07/19 12:39 11/07/19 12:30 Oxygen Flow Rate (L/min) 2 Oxygen Delivery Method Room Air Weight: 144 lb 13.499 oz Body Mass Index (BMI) 29.2 Finger Stick Blood Glucose 152 Intake and Output for Last 24 Hours 11/05/19 11/06/19 11/07/19 23:59 23:59 23:59 Intake Total 615 / 855 1435 / 1675 680 / 680 Output Total 2450 / 2500 50 / 50 Balance 615 / -1295 -1015 / -825 630 / 630 General: Awake, Alert, Oriented x 3, Cooperative, No Acute Distress HEENT: Atraumatic, Normocephalic, PERRL, EOMI, Sclera Non Icteric Oral: Moist Mucosa Neck: Supple, Good ROM, No JVD Lungs: Clear to auscultation Cardiovascular: Regular Rhythm, Normal S1, Normal S2 Murmur Murmur: Grade 2/6, Mid Systolic, LLSB, LVOT, Sternal Notch Abdomen: Bowel Sounds Present, Soft, Non Tender Extremities: No edema Psych/Mental Status: Appropriate 11/07/19 05:20: WBC 6.0, RBC 3.05 L, Hgb 9.5 L, Hct 30.7 L, MCV 100.7 H, MCH 31.1, MCHC 30.9 L, Plt Count 199, MPV 10.9 11/07/19 05:20: Sodium 131 L, Potassium 5.1, Chloride 96 L, Carbon Dioxide 29.0, Anion Gap 6, BUN 49 H, Creatinine 4.44 H, Est GFR (MDRD) Af Amer 13 L, Est GFR (MDRD) Non-Af 11 L, BUN/Creatinine Ratio 11.0, Glucose 248 H, Calcium 9.2 Rhythm: Sinus rhythm ECHO: Interpretation Summary The study was technically difficult. Contrast injection was performed. Left ventricular systolic function is normal. The estimated ejection fraction is 65 %. The left atrium is mildly enlarged. There is mild mitral annular calcification. Mild focal mitral valve calcification of the anterior leaflet. Mild (1+) mitral valve insufficiency. Trivial tricuspid valve insufficiency. Mild focal aortic valve calcification. Unable to estimate RV systolic pressure/pulmonary artery pressure due to technically difficult study. No evidence for diastolic dysfunction. Stress Test: Stress Test Report Pharmacologic myocardial perfusion stress test. 58-year-old lady with a history of chest pain. Medications aspirin, Lipitor, metoprolol, Neurontin. Stress protocol: Resting EKG demonstrates normal sinus rhythm with a rate of 70 bpm normal intervals are noted resting blood pressures 114/60 mmHg. 0.4 mg of regadenoson was infused per usual protocol followed by rapid intravenous saline flush injection continuous EKG monitoring was performed. The maximum heart rate attained was 89 bpm which was 54% of maximum predicted heart rate the maximum workload was 1 metabolic equivalent. At rest there were no ST or T wave changes noted to suggest abnormal flow reserve at peak infusion nonspecific ST-T wave changes were noted with no meet the criteria for ischemia. No clinical angina was noted. Myocardial perfusion protocol. 12.0 mCi of technetium 99m sestamibi was injected at rest. 0.4 mg of regadenoson was infused per usual protocol peak infusion 35.0 mCi of technetium 99m sestamibi was injected stress images were obtained stress and rest images were reconstructed and compared in the short axis vertical long horizontal long axis. Gated images were also obtained Perfusion SPECT analysis: Review of the stress images demonstrate normal uptake of tracer noted in all areas of the myocardium. The resting images similar demonstrate normal uptake of tracer noted in all areas of myocardium. No reversibility is noted suggest ischemia. Gated SPECT analysis: The gated ejection fraction is 65%. Conclusion: Normal pharmacologic myocardial perfusion stress test. Preserved ejection fraction. Medical Necessity - Tobacco Use Smoking Status: Never smoker Tobacco Use: Non-smoker Assessment/Plan 1. Chest pain/right shoulder pain The etiology of the patient's pain is uncertain. Based upon her noninvasive studies she does not appear to have ongoing evidence of diminished LV systolic function or stress-induced myocardial ischemia. Thus at the moment she will continue noncardiac evaluation of her chest discomfort. 2. Non-ST segment elevation KS-remote She had previously undergone evaluation in 2014 for concerns of abnormal cardiac enzymes. At that time it was thought she may have had a non-ST segment elevation KS-type II event. She underwent noninvasive testing, as it was thought not to proceed with diagnostic cardiac catheterization at that [id number] upon concerns of IV contrast related nephropathy and worsening her underlying renal insufficiency. Her exercise tolerance test, as noted, was considered negative and thus she has gone since that time without the need for invasive evaluation or care. He has now undergone repeat evaluation from a noninvasive standpoint. Thus far there is been no acute changes. Thus she will continue conservative medical management. No immediate plans for diagnostic cardiac catheterization. 3. Mitral valve regurgitation She will continue to have her mitral valve regurgitation followed by history, ex am, and echocardiogram as deemed appropriate. 4. CHF There has been concerns in the past that she may have an element of diastolic mediated CHF. She has been treated medically and with the assistance of hemodialysis. At the moment she does not appear to have any acute symptoms. Her examination does appear to be somewhat improved since her dialysis yesterday. 5. Hyperlipidemia She should continue risk factor evaluation and care. 6. Hypertension Her blood pressure can be followed. Her medicines can be adjusted, taking into consideration her renal insufficiency, to help control her blood pressure. 7. Pulmonary hypertension Based upon her most recent echocardiogram, secondary to a technically diminished quality study, her RV systolic pressure was unable to be estimated. 8. Diabetes mellitus She will continue under the care of internal medicine. 9. Chronic renal insufficiency She does have a history of chronic renal sufficiency on chronic hemodialysis. She will continue under the care of nephrology. Comment: The above was discussed and reviewed with the patient and the [facility] staff. This note was generated using a voice recognition system and there may be incorrect words, spelling or punctuation that were not noted when reviewing the office note prior to saving.
--- NOTE | 2019-11-08 13:39 | CASEMGMT ---
NABILA LEDEZMA DC PHONE CALL DC DATE: 11.07.2019 DC Dispositon: Home Diagnosis on Discharge: Home with support from her daughter. LACE/STRATA: 08/07 Intro role of CM to patient. Pt remembered NABILA LEDEZMA from CM visit in hospital. Pt states she does not wish to return to her PCP. NABILA LEDEZMA offered to review area doctors with pt. She is requesting # for [facility]. # given and pt will call herself. No other questions, pt is at dialysis and is aware of f/u appt with Dr. Van. No care improvement suggestions were given, pt states her care was excellent. Marta JORGENSENN RN ACM
== END 2019-11-07 15:28 | disposition home or self-care (01) | DRG 313 ==
LOC: ED 15:14 → PCU 16:49
PROVIDERS: Internal Medicine; Nurse Practitioner Family; Admitting Provider Internal Medicine; Emergency Provider Emergency Medicine; PCP Internal Medicine
DX: R07.9 Chest pain, unspecified (principal); N18.6 End stage renal disease; I50.32 Chronic diastolic (congestive) heart failure; I13.2 Hypertensive heart and chronic kidney disease with heart failure and with stage 5 chronic kidney disease, or end stage renal disease; Z99.2 Dependence on renal dialysis; E78.5 Hyperlipidemia, unspecified; E03.9 Hypothyroidism, unspecified; G47.33 Obstructive sleep apnea (adult) (pediatric); I27.20 Pulmonary hypertension, unspecified; I34.0 Nonrheumatic mitral (valve) insufficiency; E10.22 Type 1 diabetes mellitus with diabetic chronic kidney disease; E10.610 Type 1 diabetes mellitus with diabetic neuropathic arthropathy; E10.42 Type 1 diabetes mellitus with diabetic polyneuropathy; J45.909 Unspecified asthma, uncomplicated; Z79.4 Long term (current) use of insulin; I25.2 Old myocardial infarction; E10.319 Type 1 diabetes mellitus with unspecified diabetic retinopathy without macular edema; Z79.82 Long term (current) use of aspirin; F32.9 Major depressive disorder, single episode, unspecified; F41.9 Anxiety disorder, unspecified; K21.9 Gastro-esophageal reflux disease without esophagitis; D63.1 Anemia in chronic kidney disease; I07.1 Rheumatic tricuspid insufficiency
CPT/HCPCS: 36415; 71046; 78452; 80048; 80053; 80061; 82962; 83735; 84100; 84484; 85025; 85027; 90937; 93005; 93017; 93306; 94003; 94660; 99251; 99285; A9500; J7030; Q9957; A4216; C8929; G0257; G0463; J2405; J2785

== ENCOUNTER → 2020-04-09 | Outpatient (CLI) | payer MEDICARE, MEDICAID, SELFPAY ==
[2020-04-09 12:00] VITALS: BMI 28.0
[2020-04-17 04:39] LABS: HPV APTIMA, High Risk Negative (Negative)
== END | disposition home or self-care (01) ==
LOC: LABSPEC 14:25
PROVIDERS: PCP Family Medicine; Referring Provider Obstetrics & Gynecology; Visit Provider Obstetrics & Gynecology
DX: Z12.4 Encounter for screening for malignant neoplasm of cervix (principal)
CPT/HCPCS: 87624; 88175; G0145

== ENCOUNTER → 2020-04-20 16:05 | Outpatient (CLI) | payer MEDICARE, SELFPAY ==
[2020-04-10 06:44] VITALS: BMI 28.0
[2020-04-20 17:40] LABS: Absolute Lymphocyte Count 0.97 X10^3/uL (0.83-4.51); Absolute Neutrophil Count 3.9 X10^3/uL (2.0-7.7); Basophil# 0.08 X10^3/uL; Basophil% 1.4 % (0-1); Eosinophil# 0.32 X10^3/uL; Eosinophils% 5.5 % (0-5); Hematocrit 36.8 % (37-47); Lymphocyte # 0.97 X10^3/ul (4.0); Lymphocyte % 16.7 % (19-41); Mean Corp Hgb Conc 32.6 g/dL (32-36); Mean Corpuscular Hgb 33.1 pg (27.0-32.0); Mean Corpuscular Volume 101.4 fL (81-99); Mean Platelet Vol. 11.9 fl (6.2-12.0); Monocyte# 0.56 X10^3/uL; Monocyte% 9.6 % (0-10); NRBC Flagged by Analyzer 0 % (0-5); Neutrophil # 3.88 X10^3/uL (2.7-7.7); Neutrophil % 66.6 % (47-70); Platelet Count 245 K/mm3 (150-450); Red Blood Count 3.63 M/mm3 (4.2-5.4); White Blood Count 5.8 K/mm3 (4.4-11.0)
[2020-04-20 18:03] LABS: ALB/GLOB Ratio 0.9 RATIO (0.9-2.4); AST(SGOT) 28 U/L (15-37); Alanine Aminotransfer ALT/SGPT 77 U/L (13-56); Albumin, Serum 3.5 g/dL (3.2-5.0); Alkaline Phosphatase 135 U/L (45-117); Anion Gap 9 (5-15); BUN 64 mg/dL (7-18); BUN/Creat Ratio 15.3 RATIO (10-20); Calcium,Total 9.2 mg/dL (8.5-10.1); Chloride 95 mmol/L (98-107); Cholesterol 186 mg/dL (200); Creatinine, Serum 4.18 mg/dL (0.55-1.02); EST Glomerular Filtration Rate 12 mL/min (>60); Est Glom Filt Rate - Afr Amer 14 mL/min (>60); Globulin 3.8 g/dL (2.2-4.2); Glucose 395 mg/dL (74-106); High Density Lipoprotein 83 mg/dL; Potassium 4.8 mmol/L (3.5-5.1); Protein, Total 7.3 g/dL (6.4-8.2); Sodium Level 133 mmol/L (136-145); T4 Free Direct 1.14 ng/dL (0.76-1.46); Thyroid Stim Hormone (TSH) 2.95 uIU/mL (0.358-3.74); Triglycerides 124 mg/dL; Very Low Density Lipoprotein 25 mg/dL (5-40)
[2020-04-20 18:09] LABS: Hemoglobin A1c 8.3 % (3.8-5.6)
[2020-04-20 18:33] LABS: PTHIN 269.6 pg/mL (18.4-80.1)
[2020-04-23 16:22] LABS: Thyroglobulin Antibody < 1.0 IU/mL (0.0-0.9); Thyroid Peroxidase AB 14 IU/mL (0-34)
[2020-04-24 14:45] LABS: Vitamin D 1,25-Dihydroxy 23.2 pg/mL (19.9-79.3)
== END ==
PROVIDERS: PCP Family Medicine; Visit Provider Family Medicine
DX: E10.22 Type 1 diabetes mellitus with diabetic chronic kidney disease (principal); E78.5 Hyperlipidemia, unspecified; E03.9 Hypothyroidism, unspecified; N18.6 End stage renal disease
CPT/HCPCS: 80053; 80061; 82652; 83036; 83970; 84439; 84443; 85025; 86376; 86800

== ENCOUNTER → 2020-04-25 11:32 | Outpatient (CLI) | payer MEDICARE, MEDICAID, SELFPAY ==
[2020-04-09 11:11] VITALS: BMI 28.0
[2020-04-10 06:44] VITALS: BMI 28.0
--- NOTE | 2020-04-25 | VUL_PTH ---
PATIENT: MARLENY DIXON LOC: OPBD U#:[id number] AGE/SX: 64/F ROOM: RE04/25/[address]: Dr. Natividad Escobar MD : 1960 BED: DIS: SPEC #: [id number] RECD: 04/25/20 13:04 STATUS: TIMOTHY LON #: [id number] ODALYS: 04/25/20 00:[address]: Natividad Escobar DEPT: SURGICAL PATHOLOGY RECD BY: Anjel Can ENTERED: 04/26/20 10:27 SP TYPE: VULVA BX OTHR DR: Dr. Abraham Montague MD Tissues: Vulva, NOS Procedures: Surgery Specimen Level IV HEADER OPERATION: Vulvar biopsy PRE-OP DIAGNOSIS: Vulvar lesion TISSUE SUBMITTED: Vulvar biopsy MICROSCOPIC DIAGNOSIS Vulvar lesion, biopsy: Consistent with lentigo simplex. AM:carroll 04/27/20 COMMENT Case has been reviewed in consultation with Dr. Salas who concurs with the above diagnosis. IDC:SJ MICROSCOPIC DESCRIPTION Slides are reviewed. GROSS DESCRIPTION Received is one container labeled with the patient's name and not further designated. The specimen consists of two irregular fragments of light blanco soft tissue that in aggregate measure 0.2 x 0.1 x 0.1 cm. The specimen is totally submitted in one cassette. / AM:carroll 04/26/20 TC:5 CPT: 46391
--- NOTE | 2020-04-25 11:33 | BI_ITS ---
MAMMOGRAPHY - BILATERAL SCREENING 3-D TOMOSYNTHESIS REASON FOR EXAM: Female, 59 years old. Routine screening PERTINENT HISTORY: BILAT SCREENING - FAM HX OF MOTHER @ AGE 72 and amp;amp; MAT AUNT @ AGE 40''S - NO PREV SURG''S. TECHNIQUE: 2-D mammograms and 3-D Tomosynthesis of the breast (s) were performed. CAD was performed. COMPARISON: 2018 FINDINGS: The breast composition is heterogeneously dense that can obscure small breast masses. Scattered benign calcifications are seen. No dense spiculated masses or suspicious microcalcifications are identified. No architectural distortion is identified. There is no skin thickening or retraction. There has been no significant change since the prior study. BI/SCREEN MAMM (CAD) W/ROXIE BILAT IMPRESSION: No mammographic signs of malignancy. Routine yearly mammograms recommended. ASSESSMENT CATEGORY: BIRADS Category 2: Benign. A letter regarding these results will be sent to the patient by the facility within 30 days. FOLLOW UP RECOMMENDATION: Yearly follow up mammogram recommended. (A) Approximately 10% of breast cancers are not detected by mammography. A normal mammogram should not delay biopsy of a clinically suspicious abnormality. Electronically Signed: Paul Campoverde MD at 14:01 EDT , Service support ,
--- NOTE | 2020-04-25 11:36 | BD_ITS ---
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 COMPARISON: None. FINDINGS: Lumbar Spine (L1-L4): g/cm2 (1.103) / T-score (-0.5) / Z-score (0.6) Findings are suggestive of normal bone density with a low fracture risk. Left Femur Total: g/cm2 (0.600) / T-score (-3.2) / Z-score (-2.4) Left Femoral Neck: g/cm2 (0.577) / T-score (-3.3) / Z-score (-2.1) Right Femur Total: g/cm2 (0.595) / T-score (-3.3) / Z-score (-2.4) Right Femoral Neck: g/cm2 (0.566) / T-score (-3.4) / Z-score (-2.2) BD/Dexa Bone Density Study IMPRESSION: The patient is considered osteoporotic as outlined below according to World Shai Organization (WHO) criteria with a high fracture risk. Reference Information: The T-score is the number of standard deviations above or below the standard which is normal for young adults at their peak bone mineral density. The World Health Organization (WHO) interprets the T-scores as follows: Above -1 Normal bone density Between -1 and -2.5 Osteopenia Equal to / or below -2.5 Osteoporosis As a practical clinical guideline, osteopenia may be graded as follows: Mild -1 through -1.5 Moderate -1.6 through -2.0 Severe -2.1 through -2.4 The Z-score is the number of standard deviations above or below age-matched controls. A Z-score of less than -1.5 would be considered abnormal. References: 1. NIH Osteoporosis and Related Bone Diseases http://www.osteo.org 2. International Society for Clinical Densitometry http://www.iscd.org 3. National Osteoporosis Foundation http://www.nof.org Electronically Signed: Todd Zapien, at 15:51 EDT , Service support ,
== END ==
PROVIDERS: PCP Family Medicine; Referring Provider Obstetrics & Gynecology; Visit Provider Obstetrics & Gynecology
DX: Z12.31 Encounter for screening mammogram for malignant neoplasm of breast (principal); M81.0 Age-related osteoporosis without current pathological fracture
CPT/HCPCS: 77063; 77067; 77080; 88305

== ENCOUNTER → 2020-04-30 13:43 | Outpatient (CLI) | payer MEDICARE, MEDICAID, SELFPAY ==
[2020-04-10 06:44] VITALS: BMI 28.0
[2020-04-25 12:38] VITALS: BMI 28.8
--- NOTE | 2020-04-30 13:45 | US_ITS ---
STUDY: THYROID ULTRASOUND REASON FOR EXAM: Female, 59 years old. Nodule TECHNIQUE: Ultrasound evaluation of the thyroid was performed with real-time and static natarajan-scale imaging. COMPARISON: None. FINDINGS: RIGHT LOBE: The right lobe of the thyroid gland measures 4.6 x 1.3 x 1.3 cm. There is a homogeneous echotexture. There are no demonstrated solid, cystic or complex lesions. LEFT LOBE: The left lobe of the thyroid gland measures 4.4 x 1.2 x 1.2 cm. There is a homogeneous echotexture. There is a slightly hypoechoic 0.97 x 0.55 x 0.6 cm nodule which may represent a thyroid nodule or parathyroid. Consider additional evaluation with thyroid uptake study since no prior studies are available for comparison, or 3-6 month follow-up to ensure stability. ISTHMUS: The isthmus measures 2.0 mm . The regional lymph nodes are normal. US/Thyroid IMPRESSION: Normal sized homogeneous thyroid gland with a well-defined homogeneous slightly hypoechoic nodule in the lower pole of the left thyroid lobe. Please see discussion above Electronically Signed: Paul Campoverde MD at 17:33 EDT , Service support ,
== END ==
PROVIDERS: PCP Family Medicine; Referring Provider Family Medicine; Visit Provider Family Medicine
DX: E04.1 Nontoxic single thyroid nodule (principal)
CPT/HCPCS: 76536

== ENCOUNTER → 2020-08-02 16:12 | Outpatient (CLI) | payer MEDICARE, MEDICAID, SELFPAY ==
[2020-06-08 12:49] VITALS: BMI 31.6
[2020-08-02 17:56] LABS: ALB/GLOB Ratio 0.9 RATIO (0.9-2.4); AST(SGOT) 13 U/L (15-37); Alanine Aminotransfer ALT/SGPT 25 U/L (13-56); Albumin, Serum 3.3 g/dL (3.2-5.0); Alkaline Phosphatase 164 U/L (45-117); Anion Gap 8 (5-15); BUN 57 mg/dL (7-18); BUN/Creat Ratio 11.3 RATIO (10-20); Calcium,Total 8.9 mg/dL (8.5-10.1); Chloride 98 mmol/L (98-107); Cholesterol 144 mg/dL (200); Creatinine, Serum 5.04 mg/dL (0.55-1.02); EST Glomerular Filtration Rate 9 mL/min (>60); Est Glom Filt Rate - Afr Amer 11 mL/min (>60); Globulin 3.8 g/dL (2.2-4.2); Glucose 207 mg/dL (74-106); High Density Lipoprotein 65 mg/dL; Phosphorus 3.6 mg/dL (2.5-4.9); Protein, Total 7.1 g/dL (6.4-8.2); Sodium Level 136 mmol/L (136-145); Triglycerides 230 mg/dL; Very Low Density Lipoprotein 46 mg/dL (5-40)
[2020-08-02 18:08] LABS: Hemoglobin A1c 6.7 % (3.8-5.6)
[2020-08-02 18:09] LABS: Vitamin D,25 Hydroxy 22.9 ng/mL
== END ==
PROVIDERS: PCP Family Medicine; Referring Provider Family Medicine; Visit Provider Family Medicine
DX: E10.9 Type 1 diabetes mellitus without complications (principal); R79.89 Other specified abnormal findings of blood chemistry; M81.0 Age-related osteoporosis without current pathological fracture
CPT/HCPCS: 36415; 80053; 80061; 82306; 83036; 84100

== ENCOUNTER → 2020-08-31 14:32 | Outpatient (CLI) | payer MEDICARE, MEDICAID, SELFPAY ==
[2020-08-16 14:16] VITALS: BMI 31.6
[2020-08-31 15:21] VITALS: BP 131/55; PULSE 82; RESP 16; TEMP 36.8; O2SAT 99; BMI 29.7
[2020-08-31] MEDS: DENOSUMAB 60 MG/ML SQ (15:38)
[2020-08-31 15:42] VITALS: BP 131/55; PULSE 82; RESP 16; TEMP 36.8; O2SAT 99
== END ==
PROVIDERS: PCP Family Medicine; Referring Provider Internal Medicine Endocrinology, Diabetes & Metabolism; Visit Provider Internal Medicine Endocrinology, Diabetes & Metabolism
DX: M81.0 Age-related osteoporosis without current pathological fracture (principal)
CPT/HCPCS: 96372; J0897

== ENCOUNTER → 2020-10-24 09:55 | Outpatient (CLI) | payer MEDICARE, MEDICAID, SELFPAY ==
[2020-08-16 14:16] VITALS: BMI 31.6
[2020-08-31 15:21] VITALS: BMI 29.7
[2020-10-24 10:20] LABS: Absolute Lymphocyte Count 1.25 X10^3/uL (0.83-4.51); Absolute Neutrophil Count 2.5 X10^3/uL (2.0-7.7); Basophil# 0.08 X10^3/uL; Basophil% 1.7 % (0-1); Eosinophil# 0.35 X10^3/uL; Eosinophils% 7.4 % (0-5); Hematocrit 34.5 % (37-47); Hemoglobin 11.5 g/dL (12.0-15.0); Lymphocyte # 1.25 X10^3/ul (4.0); Lymphocyte % 26.6 % (19-41); Mean Corp Hgb Conc 33.3 g/dL (32-36); Mean Corpuscular Hgb 32.6 pg (27.0-32.0); Mean Corpuscular Volume 97.7 fL (81-99); Mean Platelet Vol. 10.8 fl (6.2-12.0); Monocyte# 0.52 X10^3/uL; Monocyte% 11.1 % (0-10); NRBC Flagged by Analyzer 0 % (0-5); Neutrophil # 2.49 X10^3/uL (2.7-7.7); Platelet Count 208 K/mm3 (150-450); RBC Distribution Width CV 13.2 % (11.6-14.6); RBC Distribution Width SD 46.9 fl (35.1-43.9); Red Blood Count 3.53 M/mm3 (4.2-5.4); White Blood Count 4.7 K/mm3 (4.4-11.0)
[2020-10-24 10:32] LABS: Anion Gap 1 (5-15); BUN 56 mg/dL (7-18); BUN/Creat Ratio 11.9 RATIO (10-20); Calcium,Total 9.7 mg/dL (8.5-10.1); Chloride 106 mmol/L (98-107); Creatinine, Serum 4.71 mg/dL (0.55-1.02); EST Glomerular Filtration Rate 10 mL/min (>60); Est Glom Filt Rate - Afr Amer 12 mL/min (>60); Glucose 100 mg/dL (74-106); Potassium 5.2 mmol/L (3.5-5.1); Sodium Level 139 mmol/L (136-145)
--- NOTE | 2020-10-25 17:33 | PCM.TILTTABL ---
- Summary Pre Test Resting HR: 93 Pre Test Resting BP: 162/82 Minimum Test HR: 89 Maximum Test HR: 97 Minimum Test BP: 82/52 Maximum Test BP: 162/82 Physician Tilt Table Report - Patient's Physicians Primary Care Physician: Abraham Montague Indications/Diagnosis: Syncope Procedure Comments: The patient was brought to the noninvasive lab in the post absorptive nonsedated state. The resting blood pressure was noted to be 162/82 mmHg with a heart rate of 93 bpm and sinus rhythm. The patient was then put in the head upright tilt table position for a total duration of 20 minutes. The patient maintained a steady heart rate in the mid 90s and blood pressure and was asymptomatic. After that the patient was put in the recumbent position and administered 0.4 mg of sublingual nitroglycerin. The patient was then placed back in the 70 degree head upright tilt position. The patient subsequently continued to have symptoms of dizziness and dropped her blood pressure to a tiff of 82/52 mmHg with a pulse rate of 95 bpm. The patient was then recovered and the test terminated. Summary: The above is suggestive of orthostatic hypotension in response to sublingual nitroglycerin. There is no evidence of vasodepressor syncope or cardioinhibitory syncope or postural orthostatic tachycardia.
[2020-10-25 17:36] VITALS: BP 162/82; BP 82/52
== END ==
PROVIDERS: PCP Family Medicine; Referring Provider Family Medicine; Visit Provider Family Medicine
DX: R55 Syncope and collapse (principal)
CPT/HCPCS: 36415; 80048; 85025; 93660; J7040; A4216

== ENCOUNTER → 2020-11-08 15:29 | Outpatient (CLI) | payer MEDICARE, MEDICAID, SELFPAY ==
[2020-11-05 14:21] VITALS: BMI 30.7
--- NOTE | 2020-11-08 15:32 | RAD_ITS ---
bilateral knee pain COMPARISON: March 20, 2015 FINDINGS: # of images incl. paperwork: 3 XR Knee 3 Views: Right BONE AND JOINTS: There is been interval removal of intramedullary nail and raquel within the tibia Marked degenerative change that has progressed when compared to prior study. Medial and lateral joint space narrowing with multiple loose bodies noted. There is also patellofemoral joint space narrowing. Marginal osteophytes. There is lateral subluxation of the tibia in relation to the femur. The medial tibial plateau appears depressed when compared to the prior study SOFT TISSUES: Unremarkable. No radiopaque foreign body. RAD/Knee 3 Views IMPRESSION: Marked degenerative change of the right knee as discussed this is progressive when compared to prior study Interval removal of intramedullary nail in interlocking screws in the proximal tibia incompletely visualized at 0321 Reported and signed by: Jackie Schuler DO Electronically Signed: Jackie Schuler DO at 3:20 EST Tel , Service support ,
--- NOTE | 2020-11-08 15:32 | RAD_ITS ---
bilateral knee pain COMPARISON: None FINDINGS: # of images incl. paperwork: 3 XR Knee 3 Views: Left BONE AND JOINTS: No acute fracture or subluxation. Osteopenia SOFT TISSUES: Atherosclerotic vascular disease No radiopaque foreign body. RAD/Knee 3 Views IMPRESSION: No acute pathology osteopenia Atherosclerotic vascular disease at 0323 Reported and signed by: Jackie Schuler DO Electronically Signed: Jackie Schuler DO at 3:22 EST Tel , Service support ,
[2020-11-08 17:45] LABS: Absolute Lymphocyte Count 1.06 X10^3/uL (0.83-4.51); Absolute Neutrophil Count 3.8 X10^3/uL (2.0-7.7); Basophil# 0.07 X10^3/uL; Basophil% 1.2 % (0-1); Eosinophil# 0.32 X10^3/uL; Eosinophils% 5.4 % (0-5); Hematocrit 29.8 % (37-47); Hemoglobin 9.6 g/dL (12.0-15.0); Lymphocyte # 1.06 X10^3/ul (4.0); Mean Corp Hgb Conc 32.2 g/dL (32-36); Mean Corpuscular Hgb 31.6 pg (27.0-32.0); Mean Platelet Vol. 11.4 fl (6.2-12.0); Monocyte# 0.63 X10^3/uL; Monocyte% 10.7 % (0-10); NRBC Flagged by Analyzer 0 % (0-5); Neutrophil % 64.4 % (47-70); Platelet Count 206 K/mm3 (150-450); RBC Distribution Width CV 13.2 % (11.6-14.6); RBC Distribution Width SD 47.7 fl (35.1-43.9); Red Blood Count 3.04 M/mm3 (4.2-5.4); White Blood Count 5.9 K/mm3 (4.4-11.0)
[2020-11-08 18:05] LABS: AST(SGOT) 10 U/L (15-37); Alanine Aminotransfer ALT/SGPT 28 U/L (13-56); Albumin, Serum 3.4 g/dL (3.2-5.0); Alkaline Phosphatase 135 U/L (45-117); Anion Gap 4 (5-15); BUN 25 mg/dL (7-18); BUN/Creat Ratio 9.1 RATIO (10-20); Calcium,Total 8.7 mg/dL (8.5-10.1); Chloride 98 mmol/L (98-107); Cholesterol 186 mg/dL (200); Creatinine, Serum 2.74 mg/dL (0.55-1.02); EST Glomerular Filtration Rate 19 mL/min (>60); Est Glom Filt Rate - Afr Amer 23 mL/min (>60); Globulin 3.5 g/dL (2.2-4.2); Glucose 161 mg/dL (74-106); High Density Lipoprotein 89 mg/dL; Potassium 3.8 mmol/L (3.5-5.1); Protein, Total 6.9 g/dL (6.4-8.2); Sodium Level 134 mmol/L (136-145); T4 Free Direct 1.62 ng/dL (0.76-1.46); Thyroid Stim Hormone (TSH) 0.63 uIU/mL (0.358-3.74); Triglycerides 125 mg/dL; Very Low Density Lipoprotein 25 mg/dL (5-40)
[2020-11-08 18:06] LABS: Hemoglobin A1c 7.5 % (3.8-5.6)
== END ==
PROVIDERS: PCP Family Medicine; Referring Provider Family Medicine; Visit Provider Family Medicine
DX: M25.562 Pain in left knee (principal); M25.561 Pain in right knee; E03.9 Hypothyroidism, unspecified; E10.9 Type 1 diabetes mellitus without complications
CPT/HCPCS: 36415; 73562; 80053; 80061; 83036; 84439; 84443; 85025

== ENCOUNTER 2020-11-13 07:06 | Day surgery (SDC) | payer MEDICARE, MEDICAID, SELFPAY ==
[2020-11-05 14:21] VITALS: BMI 30.7
[2020-11-12 08:48] VITALS: BMI 30.7
--- NOTE | 2020-11-13 07:29 | HP.PCM_ITS ---
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 Is patient in pain?: No Allergies methadone Allergy (Intermediate, Verified 08/31/20 15:13) Rash mirtazapine [From Remeron] Adverse Reaction (Severe, Verified 08/31/20 15:13) Kidney failure prochlorperazine edisylate [From Compazine] Adverse Reaction (Verified 08/31/20 15:13) Other prochlorperazine maleate [From Compazine] Adverse Reaction (Verified 08/31/20 15:13) Other Medications Levothyroxine [Synthroid] 137 mcg PO DAILY 01/14/19 [History Confirmed 11/05/20] Acetaminophen [Tylenol Tablet] 650 mg PO Q6H PRN PRN tab 01/20/19 [Rx Confirmed 11/05/20] albuterol sulfate 90 mcg/actuation aerosol inhaler 2 puff INHALATION Q6H PRN 04/09/20 [History Confirmed 11/05/20] naproxen sodium 220 mg capsule 220 mg PO BID PRN 05/11/20 [History Confirmed 11/05/20] aspirin 81 mg tablet,delayed release 81 mg PO DAILY 06/08/20 [History Confirmed 11/05/20] Lantus Solostar U-100 Insulin 100 unit/mL (3 mL) subcutaneous pen 12 unit SC BID #15 ml NS 08/16/20 [Rx Confirmed 11/05/20] Novolog Flexpen U-100 Insulin 100 unit/mL (3 mL) subcutaneous 12 unit SC TID #15 ml NS 08/16/20 [Rx Confirmed 11/05/20] blood sugar diagnostic See Rx Instructions .ROUTE .MEDSUPPLY #150 ea 08/18/20 [Rx Confirmed 11/05/20] denosumab 60 mg/mL subcutaneous syringe 60 mg SC [id number] #1 ml 08/18/20 [Rx Confirmed 11/05/20] flash glucose sensor See Rx Instructions .ROUTE .MEDSUPPLY #2 ea 08/27/20 [Rx Confirmed 11/05/20] Sucroferric Oxyhydroxide [Velphoro] 500 mg PO 08/31/20 [History Confirmed 11/05/20] Vortioxetine Hydrobromide [Trintellix] 20 mg PO DAILY 08/31/20 [History Confirmed 11/05/20] calcitriol 0.5 mcg capsule mcg PO 11/05/20 [History Confirmed 11/05/20] cholecalciferol (vitamin D3) 125 mcg (5,000 unit) capsule 125 mcg PO DAILY 11/05/20 [History Confirmed 11/05/20] docusate sodium 100 mg capsule 100 mg PO DAILY 11/05/20 [History Confirmed 11/05/20] Is last menstrual period known: No Post menopausal: Yes Patient : No PFSH Medical History Essential hypertension (Chronic) Thyroid nodule (Acute) Kidney failure (Chronic) Seasonal allergies (Chronic) Anxiety and depression (Chronic) Arthritis (Chronic) Cataracts, bilateral (Chronic) Chronic headaches (Chronic) Hormone deficiency (Chronic) Osteoporosis (Chronic) Nonrheumatic mitral valve regurgitation (Chronic) History of non-ST elevation myocardial infarction (NSTEMI) (Chronic) Atherosclerotic heart disease of [place] coronary artery without angina pectoris (Chronic) Diabetes type I (Chronic) Hyperlipidemia (Chronic) Hypothyroidism (Chronic) Diabetic polyneuropathy (Chronic) Asthma (Chronic) Charcot's joint of right foot (Chronic) GERD (gastroesophageal reflux disease) (Acute) Heart murmur (Acute) Multinodular goiter (Acute) Seizure (Acute) Sleep apnea (Acute) Vascular disease (Acute) Vision problem (Acute) Back problem (Chronic) COPD (chronic obstructive pulmonary disease) (Chronic) Bone fracture (Resolved) Breast lump (Resolved) H/O transfusion of whole blood (Resolved) Hypoglycemia (Resolved) Recurrent UTI (Resolved) Aortic valve disorder (Inactive) Pneumonia (Inactive) Surgical History History of colonoscopy (Acute) History of endoscopy (Acute) history fistulagram (Acute ~12/16/18) left arm fistula creation (Acute) H/O dilation and curettage (Resolved) H/O tubal ligation (Resolved) History of amputation of right great toe (Resolved) History of hand surgery (Resolved) Hx of cataract surgery (Resolved) Wrist fracture (Resolved) raquel removal r leg (Resolved) tibula/fibula surgery (Resolved) Family History Mother Arthritis Cancer Hormone deficiency Thyroid disorder Osteoporosis Skin cancer Father Arthritis Diabetes Heart disease Hypertension High cholesterol CVA (cerebral vascular accident) Social History (Updated 11/05/20 @ 15:51 by Lisa AG, PAMacyC) number of children: 1 current occupational status: disabled history of recent travel: No sexually active: No second hand exposure: No alcohol intake: current alcohol intake frequency: holidays/special occasions only substance use type: does not use diet: other well-balanced diet: daily or most days caffeine: Yes Type: carbonated beverages Number of servings: 1 what type of physical activity do you participate in: none seatbelt use: always do you feel safe at home: Yes Female Reproductive History Menstrual Ab spontaneous: 1 HPI HPI HPI: MARLENY DIXON, is a 59 F who presents to the office today for HPI HPI Surgical H&P: Yes HPI: MARLENY DIXON, is a 59 F who presents to the office today for post- treatment bleeding and screening colonoscopy. Patient's most recent fistulogram was on 12/16/[address] Wagner. Findings included diffuse venous fistula stenosis proximal 8 cm of the fistula. A 6 x 2 cutting balloon angioplasty was performed with successful treatment of the stenosis. Patient is preparing to transition over to home hemo-dialysis. She is currently dialyzing at the [facility]. She notes this is venous bleeding. She states she would like to have a fistulogram in preparation to move to dialysis at home. Patient is also interested in being placed on the transplant list. She states she has to complete another colonoscopy due to her last colonoscopy was incomplete due to poor prep. She noted be hospitalized at the time and not wanting to complete the colonoscopy. Dr. Contreras performed an upper and lower endoscopy on 01/17/19 which demonstrated: Impressions : - Non-bleeding erosive gastropathy. Biopsied. - A few gastric polyps. Resected and retrieved. - The examination was otherwise normal. Impressions : - The entire examined colon is normal on direct and retroflexion views. - No specimens collected. Pathology demonstrated: MICROSCOPIC DIAGNOSIS A. Gastric body, biopsy: Mild chronic gastritis. See comment. B. Gastric cardia polyp, biopsy:Cauterized fragments of superficial glandular tissue. Patient was to follow-up and have a repeat colonoscopy however failed to do so. She denies having change in bowel habits, melena, bright red blood per rectum. ROS General General: Yes fatigue; no weight change, appetite, colon cancer, breast cancer or weakness HEENT HEENT: No difficulty swallowing, eye injury, eye surgery, swollen glands or hoarseness Endo Endocrine: Yes thyroid disease and diabetes mellitus; no thyroid cancer, Hair loss, heat intolerance or cold intolerance Musc Musculoskeletal: Yes arthritis; no back problems, rheumatoid arthritis, gout or joint pain Cardio Cardiovascular: Yes murmur, heart disease and high blood pressure; no pacemaker, atrial fibrillation, heart attack, heart stent, palpitations, shortness of breat with exertion or chest pain Psych Psychiatric: Yes depression and anxiety; no hearing voices Resp Respiratory: No shortness of breath, Yes sleep apnea, Yes cough, No COPD, Yes asthma, No emphysema, No wheezing Gastro Gastrointestinal: No abdominal pain, No nausea or vomiting, No diarrhea, No constipation, No blood in stool, No acid reflux, No hemorrhoids, No ulcers, No gallbladder problem, No black,tarry stools Nain Hematologic: Yes blood thinners, No blood disorders, No bleeding, Yes anemia, No blood clots Neuro Neurologic: No weakness Exam Const General: cooperative, healthy appearing, comfortable, no acute distress [facility] Head: normal to inspection Eyes General: appearance normal, both eyes and all related structures Neck Neck: normal visual inspection Neck mass: No Resp Effort & Inspection: normal respiratory effort Auscultation: clear to auscultation bilaterally Cardio Rate: regular rate Rhythm: regular rhythm Heart Sounds: murmur GI Inspection: normal to inspection Palpation: soft Percussion: normal to percussion Musc Cervical Spine: normal cervical lordosis Skin General: no rashes or lesions noted Neuro General: no focal motor deficits, CN's II-XI intact bilaterally Extrem Other: Left forearm loop transposed basilic vein to brachial artery AV fistula- good pulse, diminished bruit and thrill. Psych Appearance: grossly normal Affect: normal affect Assessment & Plan Problems 1. Problem with dialysis access, initial encounter T82.202Q 2. Encounter for screening colonoscopy Z12.[address] Wagner will plan to perform a fistulogram on the left forearm loop transposed basilic vein to brachial artery AV fistula with possible intervention using a 7 mm balloon. Procedure details, risks and benefits have been explained to the patient. She has had the opportunity to ask and have questions answered. Patient verbally understands and agrees with the plan. Dr. Wagner will also perform a colonoscopy at a different setting under [facility]. Procedure details, risks and benefits have been explained. Patient has had the opportunity to ask and have questions answered. Patient verbally understands and agrees with the plan. She will have a two day bowel prep with Shanelle. Coding Level of Care Code Off vis,est,level 4 Diagnoses Problem with dialysis access, initial encounter T82.898A ??Encounter type: initial encounter Encounter for screening colonoscopy Z12.11 11/05/20 1551 <Electronically signed by Lisa AG PA-C> Date _ Lisa AG PA-C I have re-examined the patient. There are no clinical changes since date of exam. Procedure Criteria Procedure Type: Elective COVID Risk Discussion: The surgeon/proceduralist and patient have discussed in detail the risk of exposure to and/or potential harm posed by the COVID-19 virus with having a surgery/procedure at this time versus the risk of delaying the surgery/procedure. It is not possible to know either the risk of delaying the surgery or procedure or chance of getting an infection with perfect accuracy, but a joint decision was made between the patient and the surgeon/proceduralist to proceed at this time with the scheduled surgery/procedure as indicated on the consent form.
--- NOTE | 2020-11-13 08:58 | OP.PCM_ITS ---
Problem List (1) Problem with dialysis access Status: Acute Qualifiers: Encounter type: initial encounter Qualified Code(s): T82.898A - Other specified complication of vascular prosthetic devices, implants and grafts, initial encounter Report of Operation Date of Procedure: 11/13/20 Pre-Operative Diagnosis: Diminished flow left forearm transposed loop basilic vein to brachial artery arteriovenous hemodialysis fistula Post-Operative Diagnosis: Proximal and mid left forearm fistula venous stenosis Surgery/Procedure Performed:: Left upper extremity fistulogram with 7 x 2 Cutting Balloon angioplasty Description of Surgical Findings:: Timeout and informed consent was obtained. 59-year-old female was taken to the special procedures lab placed upon the table. 50 mcg of fentanyl and 1 mg Versed were given as intravenous sedation. The left upper extremity was sterilely prepped and draped. At almost the antecubital space retrograde access to the basilic vein was obtained under ultrasound guidance. Under ultrasound guidance 2% lidocaine was instilled. Micropuncture needle was placed retrograde. Micropuncture wire inserted. 6 Guamanian short sheath dilator inserted. Then I utilized a 035 angled Glidewire and placed a 4 Guamanian angled glide cath across the looped portion into the brachial artery. Using Isovue contrast a fistulogram was obtained. This demonstrated 2 areas of stenosis 1 in the more proximal fistula on the arterial arm of the fistula and one in at the mid loop. I up sheath to a 7 Guamanian sheath over the Glidewire. Patient received 3000 units of heparin intravenously. Placed SV 5 wire through the 4 Guamanian glide cath. Then performed balloon angioplasty of the proximal limb, arterial limb of the fistula. The balloon was inflated initially to 6 josephine and then on subsequent insufflations to 8 josephine and on the final insufflation up to 10 josephine. The mid portion of the loop was treated in the same fashion. At the completion I remove the balloon and reinserted the 4 Guamanian angled glide cath and a completion fistulogram of the transposed fistula now demonstrated dramatic improvement. There was a very strong pulse thrill. I completed the outflow of the upper arm and chest area. Sheath was removed U suture of 4-0 nylon was placed she tolerated the procedure well no apparent complications she was taken back to recovery area in satisfactory addition. Fistulogram demonstrates a forearm loop basilic vein to brachial artery AV fistula. There are 2 areas of clinically significant stenosis 1 in the proximal portion of the venous fistula namely the arterial limb. The second in the apex of the loop. Both areas were successfully incompletely treated with a 7 x 2 Cutting Balloon. There is excellent basilic vein outflow of the upper arm and very good central venous outflow. Impression Successfully treated left forearm loop transposed basilic vein to brachial artery AV fistula with excellent basilic vein upper arm fistula outflow. Aguila Wagner M.D., F.A.C.S. Type of Anesthesia:: IV Sedation, Local
== END 2020-11-13 10:00 | disposition home or self-care (01) ==
LOC: CLSP 07:08
PROVIDERS: PCP Family Medicine; Referring Provider Surgery; Visit Provider Surgery
DX: T82.858A Stenosis of other vascular prosthetic devices, implants and grafts, initial encounter (principal); I10 Essential (primary) hypertension; F41.9 Anxiety disorder, unspecified; F32.9 Major depressive disorder, single episode, unspecified; M19.90 Unspecified osteoarthritis, unspecified site; M81.0 Age-related osteoporosis without current pathological fracture; I25.2 Old myocardial infarction; I25.10 Atherosclerotic heart disease of native coronary artery without angina pectoris; E78.5 Hyperlipidemia, unspecified; E03.9 Hypothyroidism, unspecified; E10.42 Type 1 diabetes mellitus with diabetic polyneuropathy; K21.9 Gastro-esophageal reflux disease without esophagitis; G47.30 Sleep apnea, unspecified; I34.0 Nonrheumatic mitral (valve) insufficiency; J44.9 Chronic obstructive pulmonary disease, unspecified; Z78.0 Asymptomatic menopausal state; Z87.440 Personal history of urinary (tract) infections; Z87.01 Personal history of pneumonia (recurrent); Z79.4 Long term (current) use of insulin; Z79.82 Long term (current) use of aspirin; Z79.899 Other long term (current) drug therapy
CPT/HCPCS: 36902; 76937; 99152; 99153; C1725; Q9967; C1769; C1894

== ENCOUNTER 2020-11-20 00:37 | Emergency (ER) | payer MEDICARE, MEDICAID, SELFPAY ==
[2020-11-12 08:48] VITALS: BMI 30.7
[2020-11-20] VITALS (9 sets, daily range): BP systolic 120–125; BP diastolic 41–59; PULSE 84–97; RESP 15–18; TEMP 36.2–36.9; O2SAT 96–98; BMI 33.0
--- NOTE | 2020-11-20 01:03 | EKG12_ITS ---
Test Reason : SOB/CP Blood Pressure : / mmHG Vent. Rate : 096 BPM Atrial Rate : 096 BPM P-R Int : 116 ms QRS Dur : 088 ms QT Int : 378 ms P-R-T Axes : 031 007 044 degrees QTc Int : 477 ms Normal sinus rhythm Nonspecific ST and T wave abnormality Abnormal ECG Confirmed by GRAHAM SARKAR, CLEMENT ([id number]), city editor PRIETO LEWIS ([id number]) on 11/22/2020 1:44:23 PM Referred By: SEDRICK Confirmed By:CLEMENT STEVENSON MD
--- NOTE | 2020-11-20 01:04 | RAD_ITS ---
STUDY: X-RAY CHEST REASON FOR EXAM: Female, 59 years old. Shortness of breath TECHNIQUE: Single AP portable view of the chest. COMPARISON: 11/05/2019 FINDINGS: Coarsened prominence of interstitial markings throughout bilateral mid lungs and lung bases with mild associated central pulmonary vascular congestion. No confluent airspace infiltrate. Calcified nodules within bilateral lung bases.. No pleural effusion or pneumothorax. Borderline cardiac megaly, unchanged. Normal mediastinum and donato. There is atherosclerotic calcification of the aortic arch . There are diffuse degenerative changes of the visualized thoracic spine. Normal visualized ribs, clavicles, and shoulders. There is no demonstrated abnormality of the visualized soft tissue structures of the upper abdomen. RAD/Chest 1 View (Portable) IMPRESSION: Likely chronic bibasilar interstitial change with superimposed interstitial edema. Electronically Signed: Anjel Abdullahi MD at 1:57 EST Tel , Service support ,
--- NOTE | 2020-11-20 01:06 | ED.VIS.GEN ---
History of Present Illness Chief Complaint: Shortness of Breath Informant: Patient Onset: Days Context: Gradual Onset Narrative: Is a 59-year-old female with history of end-stage renal disease, newly on hemodialysis presenting with increased edema, weakness and shortness of breath. Patient states she feels that she is full. She states she feels more bloated and that she is full fluid. She recently had a fistulogram with Dr. Wagner, and had a hemodialysis session tonight. Patient states she was so weak that she could not even walk without her wheelchair which is abnormal for her. She also notes that she had decreased urine output despite taking Lasix lately. She denies chest pain but does admit to a chest pressure/heaviness. Has a chronic cough which is unchanged. Patient denies any fever or chills. No associated abdominal pain, nausea or vomiting. No other complaints at this time. Past Medical History - Allergies and Home Meds Allergies/Adverse Reactions: Allergies methadone Allergy (Intermediate, Verified 11/20/20 00:37) Rash mirtazapine [From Remeron] Adverse Reaction (Severe, Verified 11/20/20 00:37) Kidney failure prochlorperazine edisylate [From Compazine] Adverse Reaction (Verified 11/20/20 00:37) Other tarditive dyskinesia prochlorperazine maleate [From Compazine] Adverse Reaction (Verified 11/20/20 00:37) Other Primary Care Physician: Abraham Montague MD [Primary Care Provider] - Past Medical History: - - Hypothyroid, hypertension, diastolic heart failure, diabetic retinopathy, chronic anemia, end-stage renal disease, anxiety/depression, type 1 diabetes mellitus Surgical History: dilatation and curettage, - - LUE AVF Smoking Status: Never smoker - Family History Maternal Family History: Family History (Last Reviewed 11/05/20 @ 14:21 by Serena Cheney) Mother Arthritis Cancer Hormone deficiency Thyroid disorder Osteoporosis Skin cancer Father Arthritis Diabetes Heart disease Hypertension High cholesterol CVA (cerebral vascular accident) Family History: Reports: Cancer Paternal Family History: Family History (Last Reviewed 11/05/20 @ 14:21 by Serena Cheney) Mother Arthritis Cancer Hormone deficiency Thyroid disorder Osteoporosis Skin cancer Father Arthritis Diabetes Heart disease Hypertension High cholesterol CVA (cerebral vascular accident) Family History: Reports: Diabetes Additional Family History: P. uncle with diabetes Review of Systems General: Reports: Malaise. Denies: Chills, Fever, Sweats Eyes: Denies: Visual changes - bilaterally, Diplopia ENT: Denies: Rhinorrhea, Sore throat Cardiovascular: Denies: Chest pain, Palpitations Respiratory: Reports: Dyspnea, Cough, Dyspnea on exertion, Orthopnea Gastrointestinal: Denies: Abdominal pain, Nausea, Vomiting, Diarrhea, Melena, Hematochezia Genitourinary: Denies: Dysuria, Hematuria, Frequency Musculoskeletal: Reports: Swelling. Denies: Back pain, Extremity Pain Skin: Denies: Rash, Wounds Neurological: Denies: Headache, Weakness, Numbness Physical Exam Vital Signs/Narrative: Vital Signs Temp Pulse Resp BP Pulse Ox 11/20/20 00:38 98.5 F 97 18 121/41 H 98 Inital Vital Signs reviewed: Yes General: Well nourished, Well developed, No Acute Distress Head: Normocephalic, Atraumatic Eyes: Perrl, EOMI ENT: Moist mucous membranes, No rhinorrhea Neck: Supple, Nontender, No JVD Cardiovascular: Regular rate, Regular rhythm, No murmurs Respiratory: No distress, Chest nontender, Diminished - right base . Negative for: Decreased Air Movement, Retractions Abdomen: Soft, Nontender, Normal bowel sounds, - - distended . Negative for: Guarding, Rebound tenderness Back: Nontender, Normal Inspection. Negative for: CVA tenderness Extremities: Nontender, Edema - 2+ up to the knees, - - AV fistula in the left forearm with palpable thrill Skin: Normal color, No rash Neurological: Alert, Oriented x3, Cranial nerves II-XII grossly intact, Normal Strength, Normal Sensation Psychological: Normal affect, Normal Mood Diagnostic/Tx/Re-eval Chest X-Ray - ED: 1 View, Read by ED Physician, Read by Radiologist, No Acute Disease, - - Interstitial edema present Clinical Impression(s) from Imaging Studies Chest X-Ray 11/20/20 01:04 IMPRESSION: Likely chronic bibasilar interstitial change with superimposed interstitial edema. Electronically Signed: Anjel Abdullahi MD at 1:57 EST Tel , Service support , Laboratory Data 11/20/20 11/20/20 11/20/20 01:15 01:15 01:15 WBC 6.7 RBC 2.29 L Hgb 7.5 L Hct 23.2 L MCV 101.3 H MCH 32.8 H MCHC 32.3 RDW Std Deviation 50.9 H RDW Coeff of Abdoul 14.8 H Plt Count 209 MPV 11.3 Immature Gran % (Auto) 0.500 Neut % (Auto) 70.6 H Lymph % (Auto) 14.1 L [place] % (Auto) 10.7 H Eos % (Auto) 3.5 Baso % (Auto) 0.6 Absolute Neuts (auto) 4.7 Absolute Lymphs (auto) 0.94 Nucleated RBC % 0 Sodium 136 Potassium 4.0 Chloride 98 Carbon Dioxide 31.0 BUN 37 H Creatinine 4.31 H Estim Creat Clear Calc 10.09 Est GFR (MDRD) Af Amer 14 L Est GFR (MDRD) Non-Af 11 L BUN/Creatinine Ratio 8.6 L Glucose 250 H Calcium 7.7 L Phosphorus 3.2 Total Bilirubin 0.30 Direct Bilirubin 0.08 AST 13 L ALT 27 Alkaline Phosphatase 102 Troponin I < 0.015 Total Protein 6.0 L Albumin 2.8 L 2.8 L Globulin 3.2 Blood Type Antibody Screen Crossmatch 11/20/20 03:30 WBC RBC Hgb Hct MCV MCH MCHC RDW Std Deviation RDW Coeff of Abdoul Plt Count MPV Immature Gran % (Auto) Neut % (Auto) Lymph % (Auto) [place] % (Auto) Eos % (Auto) Baso % (Auto) Absolute Neuts (auto) Absolute Lymphs (auto) Nucleated RBC % Sodium Potassium Chloride Carbon Dioxide BUN Creatinine Estim Creat Clear Calc Est GFR (MDRD) Af Amer Est GFR (MDRD) Non-Af BUN/Creatinine Ratio Glucose Calcium Phosphorus Total Bilirubin Direct Bilirubin AST ALT Alkaline Phosphatase Troponin I Total Protein Albumin Globulin Blood Type A POSITIVE Antibody Screen NEGATIVE Crossmatch See Detail - Rhythm Strip Rhythm Strip: Sinus Rhythm Rate: 96 Ectopy: None - EKG Initial EKG Interpretation: Sinus Rhythm, - - Normal sinus rhythm rate of 96 Normal axis Normal intervals Normal ST segments No significant change compared to prior EKG on 11/06/2019 - Medical Decision Making Patient evaluated for increased weakness and shortness of breath. Patient recently started hemodialysis. She had 3 L taken off on Thursday and 2 L taken off today. Patient is also concerned that her anemia is worsening based on her symptoms. She denies any black or bloody stools. Occult stool is negative for blood. Patient does have a worsening of her hemoglobin with a drop of 2 g in the last 10 days. Patient does have some mild interstitial edema on her chest x-ray but does not look clinically fluid overloaded. She is on room air with out any hypoxia. Given her end-stage renal disease I did not check a proBNP. Her troponin is normal may just SPECT she is secondary heart strain from this. BMP is insistent with chronic kidney disease. She does not have any findings consistent with infection. Case is discussed with her aboriginal education teacher, Dr. Pineda, who is comfortable managing her volume status outpatient but does recommend giving 1 unit of packed red blood cells in the ER. Patient be given this as well as 20 mg of IV Lasix upon discharge. Patient still makes urine and takes Lasix at home. Patient is counseled on signs and symptoms requiring return to the emergency room. Patient verbalizes agreement and understand this plan. Patient discharged home in stable and improved condition. ED Disposition - Plan for ED Patient: Disposition: Home or Assisted Living Diagnosis: Fluid overload, Acute on chronic anemia Instructions: ED Anemia, Type Not Specified (Adult) Referrals: Abraham Montague MD [Primary Care Provider] - Additional Instructions: Please follow-up with Dr. Pineda for further treatment of your fluid status. Return the emergency room with any worsening symptoms. At this time you do not require hospitalization.
[2020-11-20 01:23] LABS: Absolute Lymphocyte Count 0.94 X10^3/uL (0.83-4.51); Absolute Neutrophil Count 4.7 X10^3/uL (2.0-7.7); Basophil# 0.04 X10^3/uL; Basophil% 0.6 % (0-1); Eosinophil# 0.23 X10^3/uL; Eosinophils% 3.5 % (0-5); Hematocrit 23.2 % (37-47); Hemoglobin 7.5 g/dL (12.0-15.0); Lymphocyte # 0.94 X10^3/ul (4.0); Lymphocyte % 14.1 % (19-41); Mean Corp Hgb Conc 32.3 g/dL (32-36); Mean Corpuscular Hgb 32.8 pg (27.0-32.0); Mean Corpuscular Volume 101.3 fL (81-99); Mean Platelet Vol. 11.3 fl (6.2-12.0); Monocyte# 0.71 X10^3/uL; Monocyte% 10.7 % (0-10); NRBC Flagged by Analyzer 0 % (0-5); Neutrophil # 4.71 X10^3/uL (2.7-7.7); Neutrophil % 70.6 % (47-70); Platelet Count 209 K/mm3 (150-450); RBC Distribution Width CV 14.8 % (11.6-14.6); RBC Distribution Width SD 50.9 fl (35.1-43.9); Red Blood Count 2.29 M/mm3 (4.2-5.4); White Blood Count 6.7 K/mm3 (4.4-11.0)
[2020-11-20 01:40] LABS: AST(SGOT) 13 U/L (15-37); Alanine Aminotransfer ALT/SGPT 27 U/L (13-56); Albumin, Serum 2.8 g/dL (3.2-5.0); Alkaline Phosphatase 102 U/L (45-117); Bilirubin, Direct 0.08 mg/dL (0.00-0.30); Globulin 3.2 g/dL (2.2-4.2)
[2020-11-20 01:42] LABS: Albumin, Serum 2.8 g/dL (3.2-5.0); BUN 37 mg/dL (7-18); BUN/Creat Ratio 8.6 RATIO (10-20); Calcium,Total 7.7 mg/dL (8.5-10.1); Chloride 98 mmol/L (98-107); Creatinine, Serum 4.31 mg/dL (0.55-1.02); EST Glomerular Filtration Rate 11 mL/min (>60); Est Glom Filt Rate - Afr Amer 14 mL/min (>60); Estimated Creatinine Clearance 10.09 ml/min; Glucose 250 mg/dL (74-106); Phosphorus 3.2 mg/dL (2.5-4.9); Sodium Level 136 mmol/L (136-145)
[2020-11-20] MEDS: Furosemide 20 MG/2 ML VIAL IV (07:43)
== END 2020-11-20 08:23 | disposition home or self-care (01) ==
PROVIDERS: Emergency Provider Emergency Medicine; PCP Family Medicine
DX: I13.2 Hypertensive heart and chronic kidney disease with heart failure and with stage 5 chronic kidney disease, or end stage renal disease (principal); I50.32 Chronic diastolic (congestive) heart failure; D63.1 Anemia in chronic kidney disease; N18.6 End stage renal disease; E10.22 Type 1 diabetes mellitus with diabetic chronic kidney disease; E03.9 Hypothyroidism, unspecified; Z99.2 Dependence on renal dialysis; F41.9 Anxiety disorder, unspecified; F32.9 Major depressive disorder, single episode, unspecified; E10.319 Type 1 diabetes mellitus with unspecified diabetic retinopathy without macular edema; Z79.4 Long term (current) use of insulin; Z79.82 Long term (current) use of aspirin; Z79.899 Other long term (current) drug therapy
CPT/HCPCS: 36415; 71045; 80069; 80076; 82274; 84484; 85025; 86850; 86900; 86901; 86920; 86922; 87426; 93005; 96374; 99285; P9016; J1940

== ENCOUNTER → 2021-02-13 14:33 | Outpatient (CLI) | payer MEDICARE, MEDICAID, SELFPAY ==
[2020-12-17 12:34] VITALS: BMI 31.6
--- NOTE | 2021-02-13 14:37 | US_ITS ---
STUDY: THYROID ULTRASOUND REASON FOR EXAM: Female, 60 years old. NODULE TECHNIQUE: Ultrasound evaluation of the thyroid was performed with real-time and static natarajan-scale imaging. COMPARISON: Prior thyroid ultrasound of 04/30/2020 FINDINGS: RIGHT LOBE: The right lobe of the thyroid gland measures 4.2 x 1.3 x 1.4 cm. There is a homogeneous echotexture. There are no demonstrated solid, cystic or complex lesions. LEFT LOBE: The left lobe of the thyroid gland measures 3.7 x 1.4 x 1.4 cm. There is a homogeneous echotexture. The prior suspected nodule is less well demarcated and reduced in size to 0.9 x 0.3 x 0.4 cm compared to prior measurement of 1.0 x 0.6 x 0.6 cm. This is located on the posterior surface of the lower left thyroid lobe. ISTHMUS: The isthmus measures 4 millimeter. US/Thyroid IMPRESSION: Normal right thyroid. Prior suspected nodule is less well-defined and reduced in size as described above. Yearly follow-up advised. Electronically Signed: Angelica Irwin MD at 16:11 EDT , Service support ,
== END ==
PROVIDERS: PCP Family Medicine; Referring Provider Family Medicine; Visit Provider Family Medicine
DX: E04.1 Nontoxic single thyroid nodule (principal)
CPT/HCPCS: 76536

== ENCOUNTER → 2021-03-05 | Outpatient (CLI) | payer MEDICARE, MEDICAID, SELFPAY ==
[2020-12-17 12:34] VITALS: BMI 31.6
[2021-03-05 10:42] LABS: Hemoglobin 8.8 g/dL (12.0-15.0)
== END | disposition home or self-care (01) ==
LOC: LABSPEC 10:28
PROVIDERS: PCP Family Medicine; Referring Provider Internal Medicine Nephrology; Visit Provider Internal Medicine Nephrology
DX: D64.9 Anemia, unspecified (principal)
CPT/HCPCS: 85018

== ENCOUNTER → 2021-03-08 13:03 | Outpatient (CLI) | payer MEDICARE, MEDICAID, SELFPAY ==
[2020-08-16 14:16] VITALS: BMI 31.6
[2020-12-17 12:34] VITALS: BMI 31.6
[2021-03-08 13:10] VITALS: BP 145/60; PULSE 88; RESP 18; TEMP 36.4; O2SAT 99; BMI 29.2
[2021-03-08] MEDS: DENOSUMAB 60 MG/ML SC (13:13)
[2021-03-08 15:18] LABS: AST(SGOT) 11 U/L (15-37); Alanine Aminotransfer ALT/SGPT 19 U/L (13-56); Albumin, Serum 3.3 g/dL (3.2-5.0); Alkaline Phosphatase 96 U/L (45-117); Anion Gap 5 (5-15); BUN 45 mg/dL (7-18); BUN/Creat Ratio 9.2 RATIO (10-20); Calcium,Total 9.5 mg/dL (8.5-10.1); Chloride 101 mmol/L (98-107); Cholesterol 178 mg/dL (200); EST Glomerular Filtration Rate 10 mL/min (>60); Est Glom Filt Rate - Afr Amer 12 mL/min (>60); Estimated Creatinine Clearance 8.77 ml/min; Globulin 3.3 g/dL (2.2-4.2); Glucose 218 mg/dL (74-106); High Density Lipoprotein 81 mg/dL; Potassium 5.1 mmol/L (3.5-5.1); Protein, Total 6.6 g/dL (6.4-8.2); Sodium Level 138 mmol/L (136-145); T4 Free Direct 1.12 ng/dL (0.76-1.46); Thyroid Stim Hormone (TSH) 1.53 uIU/mL (0.358-3.74); Triglycerides 89 mg/dL; Very Low Density Lipoprotein 18 mg/dL (5-40)
== END ==
PROVIDERS: PCP Family Medicine; Referring Provider Internal Medicine Endocrinology, Diabetes & Metabolism; Visit Provider Internal Medicine Endocrinology, Diabetes & Metabolism
DX: E03.9 Hypothyroidism, unspecified (principal); E78.5 Hyperlipidemia, unspecified; M81.0 Age-related osteoporosis without current pathological fracture
CPT/HCPCS: 36415; 80053; 80061; 84439; 84443; 96372; J0897

== ENCOUNTER → 2021-04-02 11:00 | Outpatient (CLI) | payer MEDICARE, MEDICAID, SELFPAY ==
[2021-03-19 10:50] VITALS: BMI 29.2
== END ==
PROVIDERS: PCP Family Medicine; Referring Provider Internal Medicine Critical Care Medicine; Visit Provider Internal Medicine Critical Care Medicine
DX: G47.33 Obstructive sleep apnea (adult) (pediatric) (principal)
CPT/HCPCS: 98960; G0463

== ENCOUNTER 2021-05-01 15:26 | Emergency (ER) | payer MEDICARE, MEDICAID, SELFPAY ==
[2021-03-19 10:50] VITALS: BMI 29.2
[2021-05-01 15:27] VITALS: BP 148/61; PULSE 89; RESP 16; TEMP 36.1; O2SAT 99; BMI 31.7
[2021-05-01 15:30] VITALS: BP 145/65; PULSE 88; RESP 20; TEMP 36.1; O2SAT 99
--- NOTE | 2021-05-01 15:39 | EKG12_ITS ---
Test Reason : HYPOTENSION Blood Pressure : / mmHG Vent. Rate : 087 BPM Atrial Rate : 087 BPM P-R Int : 116 ms QRS Dur : 086 ms QT Int : 372 ms P-R-T Axes : 037 006 104 degrees QTc Int : 447 ms Normal sinus rhythm Nonspecific ST and T wave abnormality Abnormal ECG Confirmed by OMAR SARKAR, HENRIQUE ([id number]), market editor SALOME MA ([id number]) on 05/06/2021 9:03:52 AM Referred By: NEREYDA Confirmed By:GARLAND NELSON MD
--- NOTE | 2021-05-01 15:49 | EX.ED.DYSGE1 ---
HPI <Dr. Willian Lemons MD - Last Filed: 05/01/21 16:26> History of Present Illness Chief Complaint: Hypotension Informant: patient Onset/Context/Timing Onset: Days Context: Sudden Onset Timing: Continuous Quality: Pain Location: Anterior left chest inferior the left clavicle Current Severity: Mild Maximum Severity: Severe Worsened by: Nothing Relieved by: Nothing Associated Symptoms Associated Symptoms: Nausea Narrative Narrative: Patient is a 60-year-old woman with history of end-stage renal disease on hemodialysis who presents from dialysis because of left-sided anterior chest pain with nausea. She states she is never had pain like this before. She denies history of coronary disease. She does have history of diabetes, hypertension. She denies history of smoking. There is no significant family history of coronary disease. She denies fever, chills night sweats. She reports chronic rhinorrhea otherwise she has no HEENT symptoms. She denies shortness of breath. She denied radiation of the pain to her neck, jaw, shoulders or upper extremities. She denied pain radiating through to her back. She denies paresthesia, anesthesia or motor weakness. She denies history of PE or DVT. She denies leg pain, swelling discoloration. 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 Prior similar symptoms: No Recent Illness/Hospitalization: No PFSH <Dr. Willian Lemons MD - Last Filed: 05/01/21 16:26> [facility] Medical History (Updated 05/01/21 @ 19:[address] Kevon Camacho, DO) Anxiety and depression Aortic valve disorder Arthritis Asthma Atherosclerotic heart disease of [place] coronary artery without angina pectoris Back problem Bone fracture Breast lump Cataracts, bilateral Charcot's joint of right foot Chronic headaches COPD (chronic obstructive pulmonary disease) Diabetes type I Diabetic polyneuropathy Essential hypertension GERD (gastroesophageal reflux disease) H/O transfusion of whole blood Heart murmur History of non-ST elevation myocardial infarction (NSTEMI) Hormone deficiency Hyperlipidemia Hypoglycemia Hypothyroidism Kidney failure Multinodular goiter Nonrheumatic mitral valve regurgitation Osteoporosis Pneumonia Recurrent UTI Seasonal allergies Seizure Sleep apnea Thyroid nodule Vascular disease Vision problem Home Medications levothyroxine 125 mcg PO DAILY 01/14/19 [History Last Taken 01/14/19] acetaminophen 650 mg PO Q6H PRN PRN tab 01/20/19 [Rx Last Taken Unknown] albuterol sulfate 90 mcg/actuation aerosol inhaler 2 puff INHALATION Q6H PRN 04/09/20 [History Last Taken Unknown] naproxen sodium 220 mg capsule 220 mg PO BID PRN 05/11/20 [History Last Taken Unknown] aspirin 81 mg tablet,delayed release 81 mg PO DAILY 06/08/20 [History Last Taken Unknown] blood sugar diagnostic #150 ea 08/18/20 [Rx Last Taken Unknown] denosumab 60 mg/mL subcutaneous syringe 60 mg SC [id number] #1 ml 08/18/20 [Rx Last Taken Unknown] flash glucose sensor #2 ea 08/27/20 [Rx Last Taken Unknown] sucroferric oxyhydroxide 500 mg PO DAILY 08/31/20 [History Last Taken Unknown] vortioxetine 20 mg PO DAILY 08/31/20 [History Last Taken Unknown] calcitriol 0.5 mcg capsule 5 mcg PO TID 11/05/20 [History Last Taken Unknown] docusate sodium 100 mg capsule 100 mg PO DAILY 11/05/20 [History Last Taken Unknown] peg 3350-electrolytes 236 gram-22.74 gram-6.74 gram-5.86 gram solution 4,000 ml PO ONCE #4000 ml 11/05/20 [Rx Last Taken Unknown] atorvastatin 80 mg PO QHS 11/15/20 [History Last Taken Unknown] ergocalciferol (vitamin D2) 50,000 unit PO QMONTH 11/15/20 [History Last Taken Unknown] insulin aspart U-100 1 - 3 unit SC TID 11/15/20 [History Last Taken Unknown] vit B comp no.7-fpqsg-N-biotin 1 ea PO QHS 11/15/20 [History Last Taken Unknown] pen needle, diabetic 31 gauge x 5/16 #100 ea 03/11/21 [Rx Last Taken Unknown] fluticasone propionate 50 mcg/actuation nasal spray,suspension 1 spray INTRANASAL Q12H 03/19/21 [History Last Taken Unknown] Levemir FlexTouch U-100 Insuln 100 unit/mL (3 mL) subcutaneous pen 10 unit SUBCUT QHS #15 ml NS 04/02/21 [Rx Last Taken Unknown] insulin degludec 100 unit/mL (3 mL) subcutaneous pen 10 unit SUBCUT DAILY #15 ml 04/02/21 [Rx Last Taken Unknown] Allergy/AdvReac Type Severity Reaction Status Date / Time methadone Allergy Intermediate Rash Verified 03/19/21 10:53 mirtazapine [From Remeron] AdvReac Severe Kidney Verified 03/19/21 10:53 failure prochlorperazine edisylate AdvReac Other Verified 03/19/21 10:53 [From Compazine] prochlorperazine maleate AdvReac Other Verified 03/19/21 10:53 [From Compazine] Family History Mother Arthritis Cancer Hormone deficiency Thyroid disorder Osteoporosis Skin cancer Father Arthritis Diabetes Heart disease Hypertension High cholesterol CVA (cerebral vascular accident) Surgical History H/O dilation and curettage H/O tubal ligation history fistulagram (~12/16/18) History of amputation of right great toe History of colonoscopy History of endoscopy History of hand surgery Hx of cataract surgery left arm fistula creation raquel removal r leg tibula/fibula surgery Wrist fracture Social History number of children: 1 current occupational status: disabled history of recent travel: No sexually active: No Smoking Status: Never smoker second hand exposure: No alcohol intake: current alcohol intake frequency: holidays/special occasions only substance use type: does not use diet: other well-balanced diet: daily or most days caffeine: Yes Type: carbonated beverages Number of servings: 1 what type of physical activity do you participate in: none seatbelt use: always do you feel safe at home: Yes ROS <Dr. Willian Lemons MD - Last Filed: 05/01/21 16:26> ROS ED Constitutional Constitutional ED: Denies chills, fever(s), subjective or sweats Eyes Eyes: Denies blurry vision, change in vision or diplopia ENT ENT ED: Denies ear pain, rhinorrhea or sore throat Cardiovascular Cardiovascular: Reports chest pain; Denies orthopnea, palpitations, paroxysmal nocturnal dyspnea or racing heartbeat Respiratory/Chest Respiratory/Chest: Denies cough, dyspnea, dyspnea on exertion, orthopnea, paroxysmal nocturnal dyspnea or sputum Gastrointestinal Gastrointestinal: Reports nausea; Denies abdominal pain, constipation, diarrhea, melena or vomiting Genitourinary Genitourinary ED: Denies dysuria, hematuria or urinary frequency Musculoskeletal Musculoskeletal: Denies arthralgias, back pain, myalgias or neck pain Integumentary Denies rash Neurologic Neurologic: Denies headache(s), paresthesias or weakness Allergic/Immunologic Allergic/Immunologic ED: Denies mouth swelling, tongue swelling or urticaria EXAM <Dr. Willian Lemons MD - Last Filed: 05/01/21 16:26> Physical Exam Const Vital Signs: 05/01/21 15:27 05/01/21 15:30 05/01/21 16:32 Temperature 97.0 F L 97.0 F L Temperature Source Tympanic Tympanic Pulse Rate 89 88 Respiratory Rate 16 20 H Blood Pressure 148/61 H 145/65 H Blood Pressure Mean 90 91 Pulse Ox 99 99 99 Oxygen Delivery Method Room Air Room Air Room Air 05/01/21 18:50 Temperature Temperature Source Pulse Rate 89 Respiratory Rate 16 Blood Pressure 167/77 H Blood Pressure Mean 107 Pulse Ox 97 Oxygen Delivery Method Room Air Positive well nourished, well developed and obese General Appearance ED: well developed and NAD Nutritional Appearance: obese HEENT Reports TM's clear and moist mucous membranes HEENT Narrative: Head is atraumatic normocephalic. Ears are normal. Face is symmetric. Nares patent. Negative for trauma or tenderness Tympanic Membrane ED: Yes TM's clear Eyes PERRL and EOMs intact bilaterally General Eye ED: Negative for pale conjunctiva or scleral icterus Neck no lymphadenopathy, supple and no JVD Chest Wall inspection of chest normal and palpation of chest normal Resp normal respiratory effort and clear to auscultation bilaterally Effort and Inspection: Negative for pain with movement Cardio regular rate, regular rhythm, S1 normal heart sound, S2 normal heart sound and no murmurs GI normal to inspection, nondistended, normoactive bowel sounds, non-tender and non-distended Palpation: soft Back/Spine no CVA tenderness Cervical Spine: Negative for cervical spine tenderness Thoracic Spine / Upper Back: Negative for thoracic spinal tenderness or paraspinal muscle tenderness Extremity Extremity Narrative: Amputation of left toe as previously mentioned. There is no asymmetry, swelling, discoloration, leg vein distention, palpable cords or tenderness along the distribution of the deep venous system. General Extremety ED: Negative for edema or tenderness General Extremity: Negative for edema Neuro oriented x3, CN's II-XII intact bilaterally and no sensory deficits noted Sensorium / Orientation: alert Motor Exam: strength 5/5 throughout Psych mental status grossly normal Skin no rashes or lesions noted and no wounds <Dr. Kevon Camacho DO - Last Filed: 05/01/21 19:23> Physical Exam Const Vital Signs: 05/01/21 15:27 05/01/21 15:30 05/01/21 16:32 Temperature 97.0 F L 97.0 F L Temperature Source Tympanic Tympanic Pulse Rate 89 88 Respiratory Rate 16 20 H Blood Pressure 148/61 H 145/65 H Blood Pressure Mean 90 91 Pulse Ox 99 99 99 Oxygen Delivery Method Room Air Room Air Room Air 05/01/21 18:50 Temperature Temperature Source Pulse Rate 89 Respiratory Rate 16 Blood Pressure 167/77 H Blood Pressure Mean 107 Pulse Ox 97 Oxygen Delivery Method Room Air MDM <Dr. Willian Lemons MD - Last Filed: 05/01/21 16:26> MDM MDM Narrative Medical decision making narrative: Differential diagnosis is cardiac versus noncardiac etiology. Chest x-ray was obtained to rule out pulmonary etiology. Will obtain troponin, CBC and electrolyte panel. EKG was ordered as well as chest x-ray. Patient's blood work was drawn at 1820. Case will be turned over to afternoon physician Dr. Kyle CAMACHO Lab Data Labs: Laboratory Results - last 24 hr 05/01/21 05/01/21 05/01/21 16:20 16:20 18:47 WBC 6.4 RBC 3.62 L Hgb 11.5 L Hct 36.0 L MCV 99.4 H MCH 31.8 MCHC 31.9 L RDW Std Deviation 48.9 H RDW Coeff of Abdoul 13.2 Plt Count 183 MPV 10.5 Immature Gran % (Auto) 0.300 Neut % (Auto) 61.0 Lymph % (Auto) 15.9 L [place] % (Auto) 15.1 H Eos % (Auto) 6.3 H Baso % (Auto) 1.4 H Absolute Neuts (auto) 3.9 Absolute Lymphs (auto) 1.01 Nucleated RBC % 0 Sodium 136 Potassium 5.0 Chloride 98 Carbon Dioxide 33.0 H Anion Gap 5 BUN 35 H Creatinine 4.32 H Estim Creat Clear Calc 9.95 Est GFR (MDRD) Af Amer 13 L Est GFR (MDRD) Non-Af 11 L BUN/Creatinine Ratio 8.1 L Glucose 124 H Calcium 9.9 Troponin I High Sens 7.3 8.0 Radiography Diagnostic Testing: Radiology Impression Chest X-Ray 05/01/21 16:35 IMPRESSION: Chronic interstitial changes and possible early pulmonary interstitial edema. Clinical correlation is recommended. Electronically Signed: Francisco J Marks MD at 16:48 EDT , Service support , EKG Initial EKG: Attestation: I personally reviewed and interpreted this EKG as follows: Interpretation: Sinus Rhythm (Normal sinus rhythm with a ventricular rate 87. MT interval 116 ms. Cures duration 86 ms. QT interval 372 ms. [place] is normal. Computer is reading ossific changes. In my opinion the EKG is normal.) <Dr. Kevon Camacho, DO - Last Filed: 05/01/21 19:23> [facility] Narrative Medical decision making narrative: My interpretation of the chest x-ray is no acute pathology. Normal mediastinal silhouette. 2 sets of cardiac enzymes were negative. Hemoglobin 11.5. Creatinine 4.3 to your baseline. This point think the patient can be discharged safely home follow-up as needed return if worsening or concerns Lab Data Attestation: I reviewed the patient's lab results. Labs: Laboratory Results - last 24 hr 05/01/21 05/01/21 05/01/21 16:20 16:20 18:47 WBC 6.4 RBC 3.62 L Hgb 11.5 L Hct 36.0 L MCV 99.4 H MCH 31.8 MCHC 31.9 L RDW Std Deviation 48.9 H RDW Coeff of Abdoul 13.2 Plt Count 183 MPV 10.5 Immature Gran % (Auto) 0.300 Neut % (Auto) 61.0 Lymph % (Auto) 15.9 L [place] % (Auto) 15.1 H Eos % (Auto) 6.3 H Baso % (Auto) 1.4 H Absolute Neuts (auto) 3.9 Absolute Lymphs (auto) 1.01 Nucleated RBC % 0 Sodium 136 Potassium 5.0 Chloride 98 Carbon Dioxide 33.0 H Anion Gap 5 BUN 35 H Creatinine 4.32 H Estim Creat Clear Calc 9.95 Est GFR (MDRD) Af Amer 13 L Est GFR (MDRD) Non-Af 11 L BUN/Creatinine Ratio 8.1 L Glucose 124 H Calcium 9.9 Troponin I High Sens 7.3 8.0 Radiography Diagnostic Testing: Radiology Impression Chest X-Ray 05/01/21 16:35 IMPRESSION: Chronic interstitial changes and possible early pulmonary interstitial edema. Clinical correlation is recommended. Electronically Signed: Francisco J Marks MD at 16:48 EDT , Service support , Discharge Plan Triage Chief Complaint: Hypotension ED Provider: Kevon Camacho Dx/Rx/DC Orders Clinical Impression: Chest pain, non-cardiac Instructions: ED Chest Pain, Noncardiac Prescriptions: No Action albuterol sulfate [Ventolin HFA] 90 mcg/actuation HFA aerosol inhaler 2 puff INHALATION Q6H PRN (Reason: Bronchodialation) RF: 0 (DME) blood sugar diagnostic Strip See Rx Instructions .ROUTE .MEDSUPPLY Qty: 150 RF: 12 Prolia 60 mg/mL syringe 60 mg SC [id number] Qty: 1 RF: 1 naproxen sodium [Aleve] 220 mg capsule 220 mg PO BID PRN (Reason: Joint Stiffness) RF: 0 aspirin [Aspirin Low Dose] 81 mg tablet,delayed release (DR/EC) 81 mg PO DAILY RF: 0 fluticasone propionate [Flonase Allergy Relief] 50 mcg/actuation spray,suspension 1 spray intranasal Q12H RF: 0 calcitriol 0.5 mcg capsule 5 mcg PO TID RF: 0 docusate sodium [Stool Softener] 100 mg capsule 100 mg PO DAILY RF: 0 peg 3350-electrolytes 236-22.74-6.74 -5.86 gram recon soln 4,000 ml PO ONCE Qty: 4000 RF: 0 levothyroxine 137 MCG tablet 125 mcg PO DAILY RF: 0 acetaminophen 325 MG tablet 650 mg PO Q6H PRN PRN (Reason: Mild Pain (scale 0-3)/T>100.7) RF: 0 vortioxetine 20 MG tablet 20 mg PO DAILY RF: 0 sucroferric oxyhydroxide 500 MG tablet,chewable 500 mg PO DAILY RF: 0 atorvastatin 80 MG tablet 80 mg PO QHS RF: 0 ergocalciferol (vitamin D2) 50,000 UNIT capsule 50,000 unit PO QMONTH RF: 0 vit B comp no.7-xuiik-F-biotin 1 EACH tablet 1 ea PO QHS RF: 0 insulin aspart U-100 100 UNITS/ML insulin pen 1 - 3 unit SC TID RF: 0 (DME) FreeStyle Rosie 2 Sensor Kit See Rx Instructions .ROUTE .MEDSUPPLY Qty: 2 RF: 11 (DME) pen needle, diabetic [BD Ultra-Fine Short Pen Needle] 31 gauge x 5/16 needle See Rx Instructions .ROUTE .MEDSUPPLY Qty: 100 RF: 3 Levemir FlexTouch U-100 Insuln 100 unit/mL (3 mL) insulin pen 10 unit subcut QHS Qty: 15 RF: 3 Tresiba FlexTouch U-100 100 unit/mL (3 mL) insulin pen 10 unit subcut DAILY Qty: 15 RF: 3 Primary Care Provider: Abraham Montague Referrals: Abraham Montague MD [Primary Care Provider] - 1 Week Disposition Disposition: Home, Self Care
[2021-05-01 16:27] LABS: Absolute Lymphocyte Count 1.01 X10^3/uL (0.83-4.51); Absolute Neutrophil Count 3.9 X10^3/uL (2.0-7.7); Basophil# 0.09 X10^3/uL; Basophil% 1.4 % (0-1); Eosinophils% 6.3 % (0-5); Hemoglobin 11.5 g/dL (12.0-15.0); Lymphocyte # 1.01 X10^3/ul (0.83-4.51); Lymphocyte % 15.9 % (19-41); Mean Corp Hgb Conc 31.9 g/dL (32-36); Mean Corpuscular Hgb 31.8 pg (27.0-32.0); Mean Corpuscular Volume 99.4 fL (81-99); Mean Platelet Vol. 10.5 fl (6.2-12.0); Monocyte# 0.96 X10^3/uL; Monocyte% 15.1 % (0-10); NRBC Flagged by Analyzer 0 % (0-5); Neutrophil # 3.88 X10^3/uL (2.7-7.7); Platelet Count 183 K/mm3 (150-450); RBC Distribution Width CV 13.2 % (11.6-14.6); RBC Distribution Width SD 48.9 fl (35.1-43.9); Red Blood Count 3.62 M/mm3 (4.2-5.4); White Blood Count 6.4 K/mm3 (4.4-11.0)
[2021-05-01 16:32] VITALS: O2SAT 99
--- NOTE | 2021-05-01 16:35 | RAD_ITS ---
STUDY: X-RAY CHEST REASON FOR EXAM: Female, 60 years old. chest pain TECHNIQUE: AP portable COMPARISON: 11/20/2020 FINDINGS: There is interstitial thickening in the lower lobes bilaterally with minor discoid atelectasis in the lower lobes... There is very mild bronchovascular cuffing and early pulmonary interstitial edema not excluded. There is no demonstrated pleural abnormality. Heart is mildly enlarged.. Normal mediastinum and donato. Normal visualized pulmonary arteries. Normal visualized aortic arch and descending thoracic aorta. Dorsal spine demonstrates degenerative change.. Normal visualized ribs, clavicles, and shoulders. There is no demonstrated abnormality of the visualized soft tissue structures of the upper abdomen. RAD/Chest 1 View (Portable) IMPRESSION: Chronic interstitial changes and possible early pulmonary interstitial edema. Clinical correlation is recommended. Electronically Signed: Francisco J Marks MD at 16:48 EDT , Service support ,
[2021-05-01 16:48] LABS: Anion Gap 5 (5-15); BUN 35 mg/dL (7-18); BUN/Creat Ratio 8.1 RATIO (10-20); Calcium,Total 9.9 mg/dL (8.5-10.1); Chloride 98 mmol/L (98-107); Creatinine, Serum 4.32 mg/dL (0.55-1.02); EST Glomerular Filtration Rate 11 mL/min (>60); Est Glom Filt Rate - Afr Amer 13 mL/min (>60); Estimated Creatinine Clearance 9.95 ml/min; Glucose 124 mg/dL (74-106); Sodium Level 136 mmol/L (136-145); Troponin-I HS 7.3 pg/mL (3.0-53.7)
[2021-05-01] MEDS: Aspirin 81 MG TAB.CHEW 324 MG PO (16:54)
[2021-05-01 18:50] VITALS: BP 167/77; PULSE 89; RESP 16; O2SAT 97
[2021-05-01 19:51] VITALS: BP 145/74; PULSE 90; RESP 16; O2SAT 98
== END 2021-05-01 20:01 | disposition home or self-care (01) ==
PROVIDERS: Emergency Medicine; Emergency Provider Emergency Medicine; PCP Family Medicine
DX: R07.89 Other chest pain (principal); R11.0 Nausea; J34.89 Other specified disorders of nose and nasal sinuses; E10.22 Type 1 diabetes mellitus with diabetic chronic kidney disease; I12.0 Hypertensive chronic kidney disease with stage 5 chronic kidney disease or end stage renal disease; N18.6 End stage renal disease; Z99.2 Dependence on renal dialysis; E66.9 Obesity, unspecified; Z68.31 Body mass index [BMI] 31.0-31.9, adult; F41.9 Anxiety disorder, unspecified; F32.9 Major depressive disorder, single episode, unspecified; M19.90 Unspecified osteoarthritis, unspecified site; J45.909 Unspecified asthma, uncomplicated; I25.10 Atherosclerotic heart disease of native coronary artery without angina pectoris; J44.9 Chronic obstructive pulmonary disease, unspecified; E10.42 Type 1 diabetes mellitus with diabetic polyneuropathy; K21.9 Gastro-esophageal reflux disease without esophagitis; I25.2 Old myocardial infarction; E78.5 Hyperlipidemia, unspecified; E03.9 Hypothyroidism, unspecified; I34.0 Nonrheumatic mitral (valve) insufficiency; M81.0 Age-related osteoporosis without current pathological fracture; G47.30 Sleep apnea, unspecified; E10.610 Type 1 diabetes mellitus with diabetic neuropathic arthropathy; Z87.01 Personal history of pneumonia (recurrent); Z87.440 Personal history of urinary (tract) infections; Z89.422 Acquired absence of other left toe(s); Z79.4 Long term (current) use of insulin; Z79.82 Long term (current) use of aspirin; Z79.899 Other long term (current) drug therapy
CPT/HCPCS: 36415; 71045; 80048; 84484; 85025; 93005; 99285; A4216

== ENCOUNTER → 2021-05-07 14:28 | Outpatient (CLI) | payer MEDICARE, MEDICAID, SELFPAY ==
[2021-05-01 15:27] VITALS: BMI 31.7
[2021-05-07 18:03] LABS: Erythrocyte Sedimentation Rate 10 mm/hr (0-30)
[2021-05-07 18:36] LABS: AST(SGOT) 14 U/L (15-37); Alanine Aminotransfer ALT/SGPT 26 U/L (13-56); Albumin, Serum 3.5 g/dL (3.2-5.0); Alkaline Phosphatase 72 U/L (45-117); Bilirubin, Direct 0.06 mg/dL (0.00-0.30); Globulin 3.4 g/dL (2.2-4.2); Protein, Total 6.9 g/dL (6.4-8.2); Rheumatoid Factor < 10.0 IU/mL (<15)
[2021-05-09 16:44] LABS: ANTINUCLEAR ANTIBODIES DIRECT Negative (Negative)
== END ==
PROVIDERS: PCP Family Medicine; Visit Provider Family Medicine
DX: M62.81 Muscle weakness (generalized) (principal); L29.9 Pruritus, unspecified
CPT/HCPCS: 36415; 80076; 85652; 86038; 86431

== ENCOUNTER → 2021-06-11 14:32 | Outpatient (CLI) | payer MEDICARE, MEDICAID, SELFPAY ==
[2021-06-11 18:12] LABS: ALB/GLOB Ratio 0.8 RATIO (0.9-2.4); AST(SGOT) 13 U/L (15-37); Alanine Aminotransfer ALT/SGPT 25 U/L (13-56); Alkaline Phosphatase 72 U/L (45-117); Anion Gap 9 (5-15); BUN 40 mg/dL (7-18); Calcium,Total 8.2 mg/dL (8.5-10.1); Chloride 98 mmol/L (98-107); Cholesterol 170 mg/dL (200); Creatinine, Serum 4.99 mg/dL (0.55-1.02); EST Glomerular Filtration Rate 9 mL/min (>60); Est Glom Filt Rate - Afr Amer 11 mL/min (>60); Globulin 3.8 g/dL (2.2-4.2); Glucose 112 mg/dL (74-106); Hemoglobin A1c 8.2 % (3.8-5.6); High Density Lipoprotein 59 mg/dL; Potassium 4.4 mmol/L (3.5-5.1); Protein, Total 6.8 g/dL (6.4-8.2); Sodium Level 137 mmol/L (136-145); T4 Free Direct 1.32 ng/dL (0.76-1.46); Thyroid Stim Hormone (TSH) 0.13 uIU/mL (0.358-3.74); Triglycerides 151 mg/dL; Very Low Density Lipoprotein 30 mg/dL (5-40)
[2021-06-12 08:35] LABS: PTHIN 569.5 pg/mL (18.4-80.1)
[2021-06-14 12:58] LABS: Vitamin D 1,25-Dihydroxy 29.6 pg/mL (19.9-79.3)
== END ==
PROVIDERS: PCP Family Medicine; Visit Provider Family Medicine
DX: E03.9 Hypothyroidism, unspecified (principal); E78.5 Hyperlipidemia, unspecified; N18.6 End stage renal disease; E10.22 Type 1 diabetes mellitus with diabetic chronic kidney disease
CPT/HCPCS: 36415; 80053; 80061; 82652; 83036; 83970; 84439; 84443

== ENCOUNTER 2021-06-19 17:47 | Emergency (ER) | payer MEDICARE, MEDICAID, SELFPAY ==
[2021-06-19 17:48] VITALS: BP 146/67; PULSE 98; RESP 18; TEMP 36.6; O2SAT 100; BMI 33.5
--- NOTE | 2021-06-19 18:22 | EX.ED.DYSGE1 ---
HPI History of Present Illness Chief Complaint: Wound Check Narrative Narrative: Patient does home dialysis, she presents today after dialysis with bleeding from her left forearm region. She has no other symptoms. She does not feel lightheaded. She wrapped it quite tightly. [facility] Medical History (Updated 06/19/21 @ 18:[address] Idris Cordon MD) Anxiety and depression Aortic valve disorder Arthritis Asthma Atherosclerotic heart disease of [place] coronary artery without angina pectoris Back problem Bone fracture Breast lump Cataracts, bilateral Charcot's joint of right foot Chronic headaches COPD (chronic obstructive pulmonary disease) Diabetes type I Diabetic polyneuropathy Essential hypertension GERD (gastroesophageal reflux disease) H/O transfusion of whole blood Heart murmur History of non-ST elevation myocardial infarction (NSTEMI) Hormone deficiency Hyperlipidemia Hypoglycemia Hypothyroidism Kidney failure Multinodular goiter Nonrheumatic mitral valve regurgitation Osteoporosis Pneumonia Recurrent UTI Seasonal allergies Seizure Sleep apnea Thyroid nodule Vascular disease Vision problem Home Medications levothyroxine 125 mcg PO DAILY 01/14/19 [History Last Taken 01/14/19] acetaminophen 650 mg PO Q6H PRN PRN tab 01/20/19 [Rx Last Taken Unknown] albuterol sulfate 90 mcg/actuation aerosol inhaler 2 puff INHALATION Q6H PRN 04/09/20 [History Last Taken Unknown] naproxen sodium 220 mg capsule 220 mg PO BID PRN 05/11/20 [History Last Taken Unknown] aspirin 81 mg tablet,delayed release 81 mg PO DAILY 06/08/20 [History Last Taken Unknown] blood sugar diagnostic #150 ea 08/18/20 [Rx Last Taken Unknown] denosumab 60 mg/mL subcutaneous syringe 60 mg SC [id number] #1 ml 08/18/20 [Rx Last Taken Unknown] flash glucose sensor #2 ea 08/27/20 [Rx Last Taken Unknown] sucroferric oxyhydroxide 500 mg PO DAILY 08/31/20 [History Last Taken Unknown] vortioxetine 20 mg PO DAILY 08/31/20 [History Last Taken Unknown] calcitriol 0.5 mcg capsule 5 mcg PO TID 11/05/20 [History Last Taken Unknown] docusate sodium 100 mg capsule 100 mg PO DAILY 11/05/20 [History Last Taken Unknown] peg 3350-electrolytes 236 gram-22.74 gram-6.74 gram-5.86 gram solution 4,000 ml PO ONCE #4000 ml 11/05/20 [Rx Last Taken Unknown] atorvastatin 80 mg PO QHS 11/15/20 [History Last Taken Unknown] ergocalciferol (vitamin D2) 50,000 unit PO QMONTH 11/15/20 [History Last Taken Unknown] insulin aspart U-100 1 - 3 unit SC TID 11/15/20 [History Last Taken Unknown] vit B comp no.3-uelya-M-biotin 1 ea PO QHS 11/15/20 [History Last Taken Unknown] pen needle, diabetic 31 gauge x 02/17 #100 ea 03/11/21 [Rx Last Taken Unknown] fluticasone propionate 50 mcg/actuation nasal spray,suspension 1 spray INTRANASAL Q12H 03/19/21 [History Last Taken Unknown] Levemir FlexTouch U-100 Insuln 100 unit/mL (3 mL) subcutaneous pen 10 unit SUBCUT QHS #15 ml NS 04/02/21 [Rx Last Taken Unknown] insulin degludec 100 unit/mL (3 mL) subcutaneous pen 10 unit SUBCUT DAILY #15 ml 05/10/21 [Rx Last Taken Unknown] blood sugar diagnostic #200 ea 06/06/21 [Rx Last Taken Unknown] Allergy/AdvReac Type Severity Reaction Status Date / Time methadone Allergy Intermediate Rash Verified 06/19/21 17:51 mirtazapine [From Remeron] AdvReac Severe Kidney Verified 06/19/21 17:51 failure prochlorperazine edisylate AdvReac Other Verified 06/19/21 17:51 [From Compazine] prochlorperazine maleate AdvReac Other Verified 06/19/21 17:51 [From Compazine] Family History (Reviewed 06/12/21 @ 09:57 by Dianne Poole [employer], [employer]CTION [employer]-C) Mother Arthritis Cancer Hormone deficiency Thyroid disorder Osteoporosis Skin cancer Father Arthritis Diabetes Heart disease Hypertension High cholesterol CVA (cerebral vascular accident) Surgical History H/O dilation and curettage H/O tubal ligation history fistulagram (~12/16/18) History of amputation of right great toe History of colonoscopy History of endoscopy History of hand surgery Hx of cataract surgery left arm fistula creation raquel removal r leg tibula/fibula surgery Wrist fracture Social History (Reviewed 06/12/21 @ 09:57 by Dianne Poole [employer], SE[employer]-C) number of children: 1 current occupational status: disabled history of recent travel: No sexually active: No Smoking Status: Never smoker second hand exposure: No alcohol intake: current alcohol intake frequency: holidays/special occasions only substance use type: does not use diet: other well-balanced diet: daily or most days caffeine: Yes Type: carbonated beverages Number of servings: 1 what type of physical activity do you participate in: none seatbelt use: always do you feel safe at home: Yes ROS ROS ED ROS Narrative Past medical history: She has an extensive history this was reviewed, includes renal failure, diabetes, hypertension, hypercholesterolemia, dialysis. Medications: Reviewed Social history: Noncontributory Review of systems: Musculoskeletal: Left arm bleeding as in HPI Skin: No abrasions or lacerations Neurological: No weakness or paresthesias Hematologic: No easy bleeding or easy bruising. She has only on aspirin. EXAM Physical Exam Narrative Exam Narrative: Physical exam General: Patient does not appear in significant distress . Head: Normocephalic, Atraumatic Eyes: Conjunctiva not pale Neck: No C-spine tenderness Cardiovascular: Normal distal pulses Back: Nontender, Normal Inspection. Extremities: Left upper extremity reveals 2 puncture wounds, at this time there is no active bleeding. I removed the wrapping and observe for some time. Skin: As above Neurological: Normal strength and sensation Const Vital Signs: 06/19/21 17:48 Temperature 97.8 F Temperature Source Oral Pulse Rate 98 Respiratory Rate 18 Blood Pressure 146/67 H Blood Pressure Mean 93 Pulse Ox 100 Oxygen Delivery Method Room Air MDM MDM MDM Narrative Medical decision making narrative: Patient was observed she there is no rebleeding. I will discharge in stable condition. Discharge Plan Triage Chief Complaint: Wound Check ED Provider: Idris Cordon Dx/Rx/DC Orders Clinical Impression: Complication of AV dialysis fistula Prescriptions: No Action albuterol sulfate [Ventolin HFA] 90 mcg/actuation HFA aerosol inhaler 2 puff INHALATION Q6H PRN (Reason: Bronchodialation) RF: 0 (DME) blood sugar diagnostic Strip See Rx Instructions .ROUTE .MEDSUPPLY Qty: 150 RF: 12 Prolia 60 mg/mL syringe 60 mg SC [id number] Qty: 1 RF: 1 naproxen sodium [Aleve] 220 mg capsule 220 mg PO BID PRN (Reason: Joint Stiffness) RF: 0 aspirin [Aspirin Low Dose] 81 mg tablet,delayed release (DR/EC) 81 mg PO DAILY RF: 0 fluticasone propionate [Flonase Allergy Relief] 50 mcg/actuation spray,suspension 1 spray intranasal Q12H RF: 0 calcitriol 0.5 mcg capsule 5 mcg PO TID RF: 0 docusate sodium [Stool Softener] 100 mg capsule 100 mg PO DAILY RF: 0 peg 3350-electrolytes 236-22.74-6.74 -5.86 gram recon soln 4,000 ml PO ONCE Qty: 4000 RF: 0 levothyroxine 137 MCG tablet 125 mcg PO DAILY RF: 0 acetaminophen 325 MG tablet 650 mg PO Q6H PRN PRN (Reason: Mild Pain (scale 0-3)/T>100.7) RF: 0 vortioxetine 20 MG tablet 20 mg PO DAILY RF: 0 sucroferric oxyhydroxide 500 MG tablet,chewable 500 mg PO DAILY RF: 0 atorvastatin 80 MG tablet 80 mg PO QHS RF: 0 ergocalciferol (vitamin D2) 50,000 UNIT capsule 50,000 unit PO QMONTH RF: 0 vit B comp no.9-baiku-C-biotin 1 EACH tablet 1 ea PO QHS RF: 0 insulin aspart U-100 100 UNITS/ML insulin pen 1 - 3 unit SC TID RF: 0 (DME) FreeStyle Rosie 2 Sensor Kit See Rx Instructions .ROUTE .MEDSUPPLY Qty: 2 RF: 11 (DME) pen needle, diabetic [BD Ultra-Fine Short Pen Needle] 31 gauge x 5/16 needle See Rx Instructions .ROUTE .MEDSUPPLY Qty: 100 RF: 3 Levemir FlexTouch U-100 Insuln 100 unit/mL (3 mL) insulin pen 10 unit subcut QHS Qty: 15 RF: 3 Tresiba FlexTouch U-100 100 unit/mL (3 mL) insulin pen 10 unit subcut DAILY Qty: 15 RF: 3 (DME) ReliOn Prime Test Strips Strip See Rx Instructions .ROUTE .MEDSUPPLY Qty: 200 RF: 3 Primary Care Provider: Abraham Montague Referrals: Abraham Montague MD [Primary Care Provider] - Activity Restrictions/Additional Instructions: Call your vascular surgeon for reevaluation of your dialysis fistula. Disposition Disposition: Home, Self Care
[2021-06-19 19:00] VITALS: BP 135/76; PULSE 80; RESP 16; O2SAT 99
== END 2021-06-19 19:01 | disposition home or self-care (01) ==
PROVIDERS: Emergency Provider Emergency Medicine; PCP Family Medicine
DX: T82.838A Hemorrhage due to vascular prosthetic devices, implants and grafts, initial encounter (principal); Y83.2 Surgical operation with anastomosis, bypass or graft as the cause of abnormal reaction of the patient, or of later complication, without mention of misadventure at the time of the procedure; I10 Essential (primary) hypertension; E03.9 Hypothyroidism, unspecified; E10.36 Type 1 diabetes mellitus with diabetic cataract; E10.42 Type 1 diabetes mellitus with diabetic polyneuropathy; E78.00 Pure hypercholesterolemia, unspecified; E78.5 Hyperlipidemia, unspecified; F32.9 Major depressive disorder, single episode, unspecified; F41.9 Anxiety disorder, unspecified; G47.30 Sleep apnea, unspecified; I34.0 Nonrheumatic mitral (valve) insufficiency; I25.10 Atherosclerotic heart disease of native coronary artery without angina pectoris; I25.2 Old myocardial infarction; M81.0 Age-related osteoporosis without current pathological fracture; M14.671 Charcot's joint, right ankle and foot; J44.9 Chronic obstructive pulmonary disease, unspecified; K21.9 Gastro-esophageal reflux disease without esophagitis; M19.90 Unspecified osteoarthritis, unspecified site; Z87.01 Personal history of pneumonia (recurrent); Z87.440 Personal history of urinary (tract) infections; Z79.4 Long term (current) use of insulin; Z79.82 Long term (current) use of aspirin; Z79.899 Other long term (current) drug therapy
CPT/HCPCS: 99284; A4216

== ENCOUNTER 2021-06-29 20:34 | Emergency (ER) | payer MEDICARE, MEDICAID, SELFPAY ==
[2021-06-29 20:35] VITALS: BP 131/59; PULSE 96; RESP 19; TEMP 36.9; O2SAT 99; BMI 31.5
--- NOTE | 2021-06-29 22:04 | EKG12_ITS ---
Test Reason : SEIZURE Blood Pressure : / mmHG Vent. Rate : 089 BPM Atrial Rate : 089 BPM P-R Int : 118 ms QRS Dur : 084 ms QT Int : 368 ms P-R-T Axes : 035 013 060 degrees QTc Int : 447 ms Normal sinus rhythm Normal ECG Confirmed by GRAHAM SARKAR, CLEMENT ([id number]), pictures editor SALOME MA ([id number]) on 07/01/2021 1:24:43 PM Referred By: KYARA Confirmed By:CLEMENT STEVENSON MD
--- NOTE | 2021-06-29 22:05 | EX.ED.DYSGE1 ---
HPI History of Present Illness Chief Complaint: Seizure Informant: patient and family Narrative Narrative: 60-year-old female arriving to the emergency department concern for seizure. Patient was undergoing home dialysis when she was experiencing a lot of nausea. She called family and the room they noted that her color seems yellow and that she was retching. She had a brief episode of around 1 to 1-1/2 minutes where she was staying minimal words and seemed to possibly be having a seizure. At one point it looks like perhaps she had vomited her mouth but nothing came out. Patient is unsure if she has emesis in her mouth but is concerned that she may have aspirated as she now has a moist cough. [facility] Medical History (Updated 06/29/21 @ 23:[address] Kevon Camacho, ) Anxiety and depression Aortic valve disorder Arthritis Asthma Atherosclerotic heart disease of [place] coronary artery without angina pectoris Back problem Bone fracture Breast lump Cataracts, bilateral Charcot's joint of right foot Chronic headaches COPD (chronic obstructive pulmonary disease) Diabetes type I Diabetic polyneuropathy Essential hypertension GERD (gastroesophageal reflux disease) H/O transfusion of whole blood Heart murmur History of non-ST elevation myocardial infarction (NSTEMI) Hormone deficiency Hyperlipidemia Hypoglycemia Hypothyroidism Kidney failure Multinodular goiter Nonrheumatic mitral valve regurgitation Osteoporosis Pneumonia Recurrent UTI Seasonal allergies Seizure Sleep apnea Thyroid nodule Vascular disease Vision problem Home Medications acetaminophen 650 mg PO Q6H PRN PRN tab 01/20/19 [Rx Last Taken Unknown] albuterol sulfate 90 mcg/actuation aerosol inhaler 2 puff INHALATION Q6H PRN 04/09/20 [History Last Taken Unknown] naproxen sodium 220 mg capsule 220 mg PO BID PRN 05/11/20 [History Last Taken Unknown] aspirin 81 mg tablet,delayed release 81 mg PO DAILY 06/08/20 [History Last Taken Unknown] blood sugar diagnostic #150 ea 08/18/20 [Rx Last Taken Unknown] denosumab 60 mg/mL subcutaneous syringe 60 mg SC Q8IEGNPO #1 ml 08/18/20 [Rx Last Taken Unknown] flash glucose sensor #2 ea 08/27/20 [Rx Last Taken Unknown] sucroferric oxyhydroxide 500 mg PO DAILY 08/31/20 [History Last Taken Unknown] vortioxetine 20 mg PO DAILY 08/31/20 [History Last Taken Unknown] calcitriol 0.5 mcg capsule 5 mcg PO TID 11/05/20 [History Last Taken Unknown] docusate sodium 100 mg capsule 100 mg PO DAILY 11/05/20 [History Last Taken Unknown] peg 3350-electrolytes 236 gram-22.74 gram-6.74 gram-5.86 gram solution 4,000 ml PO ONCE #4000 ml 11/05/20 [Rx Last Taken Unknown] atorvastatin 80 mg PO QHS 11/15/20 [History Last Taken Unknown] ergocalciferol (vitamin D2) 50,000 unit PO QMONTH 11/15/20 [History Last Taken Unknown] insulin aspart U-100 1 - 3 unit SC TID 11/15/20 [History Last Taken Unknown] vit B comp no.9-cejyr-F-biotin 1 ea PO QHS 11/15/20 [History Last Taken Unknown] pen needle, diabetic 31 gauge x 5/16 #100 ea 03/11/21 [Rx Last Taken Unknown] fluticasone propionate 50 mcg/actuation nasal spray,suspension 1 spray INTRANASAL Q12H 03/19/21 [History Last Taken Unknown] Levemir FlexTouch U-100 Insuln 100 unit/mL (3 mL) subcutaneous pen 10 unit SUBCUT QHS #15 ml NS 04/02/21 [Rx Last Taken Unknown] insulin degludec 100 unit/mL (3 mL) subcutaneous pen 10 unit SUBCUT DAILY #15 ml 05/10/21 [Rx Last Taken Unknown] blood sugar diagnostic #200 ea 06/06/21 [Rx Last Taken Unknown] levothyroxine 112 mcg PO DAILY 06/29/21 [History Last Taken Unknown] omeprazole 20 mg PO DAILY 06/29/21 [History Last Taken Unknown] Allergy/AdvReac Type Severity Reaction Status Date / Time methadone Allergy Intermediate Rash Verified 06/29/21 20:39 mirtazapine [From Remeron] AdvReac Severe Kidney Verified 06/29/21 20:39 failure prochlorperazine edisylate AdvReac Other Verified 06/29/21 20:39 [From Compazine] prochlorperazine maleate AdvReac Other Verified 06/29/21 20:39 [From Compazine] Family History Mother Arthritis Cancer Hormone deficiency Thyroid disorder Osteoporosis Skin cancer Father Arthritis Diabetes Heart disease Hypertension High cholesterol CVA (cerebral vascular accident) Surgical History H/O dilation and curettage H/O tubal ligation history fistulagram (~12/16/18) History of amputation of right great toe History of colonoscopy History of endoscopy History of hand surgery Hx of cataract surgery left arm fistula creation raquel removal r leg tibula/fibula surgery Wrist fracture Social History number of children: 1 current occupational status: disabled history of recent travel: No sexually active: No Smoking Status: Never smoker second hand exposure: No alcohol intake: current alcohol intake frequency: holidays/special occasions only substance use type: does not use diet: other well-balanced diet: daily or most days caffeine: Yes Type: carbonated beverages Number of servings: 1 what type of physical activity do you participate in: none seatbelt use: always do you feel safe at home: Yes ROS ROS ED Constitutional Constitutional ED: Denies chills or weight loss Eyes Eyes: Denies change in vision or diplopia ENT ENT ED: Denies ear pain, rhinorrhea or sore throat Cardiovascular Cardiovascular: Denies chest pain, orthopnea, palpitations or racing heartbeat Respiratory/Chest Respiratory/Chest: Reports cough and dyspnea; Denies orthopnea Gastrointestinal Gastrointestinal: Denies abdominal pain, diarrhea, nausea or vomiting Genitourinary Genitourinary ED: Denies dysuria, hematuria or urinary frequency Musculoskeletal Musculoskeletal: Denies arthralgias or myalgias Integumentary Denies abscess or rash Neurologic Neurologic: Denies headache(s) or weakness Psychiatric Psychiatric: Denies anxiety, depression, suicidal ideation or suicidal thoughts Endocrine Endocrinology: Denies polydipsia, polyphagia or polyuria Allergic/Immunologic Allergic/Immunologic ED: Denies mouth swelling, tongue swelling or urticaria EXAM Physical Exam Const Vital Signs: 06/29/21 20:35 06/29/21 22:25 Temperature 98.5 F Temperature Source Oral Pulse Rate 96 91 Respiratory Rate 19 H 10 L Respiratory Pattern Normal Blood Pressure 131/59 H Blood Pressure Mean 83 Pulse Ox 99 Positive well nourished and well developed General Appearance ED: well developed HEENT Reports normocephalic, head/scalp atraumatic and moist mucous membranes Eyes PERRL and EOMs intact bilaterally Neck no lymphadenopathy, supple and no JVD Resp normal respiratory effort Auscultation: rhonchi right lower and wheezes right lower Cardio regular rate, regular rhythm and no murmurs GI normal to inspection, nondistended, normoactive bowel sounds and non-tender Palpation: soft Back/Spine no CVA tenderness and normal ROM Extremity normal to inspection General Extremety ED: Negative for edema General Extremity: Negative for edema Neuro oriented x3 and CN's II-XII intact bilaterally Sensorium / Orientation: alert Motor Exam: strength 5/5 throughout Psych mental status grossly normal Mood & Affect: Negative for depressed or tearful Skin no rashes or lesions noted and no wounds MDM MDM MDM Narrative Medical decision making narrative: Basic blood work showed a hemoglobin of 9 white count 5.8. Creatinine 3.25 with a glucose of 202. My interpretation of the chest x-ray is no acute process. Patient received a breathing treatment. She is feeling significantly better and her cough has improved. Auscultation of lung sounds show the lungs now to be clear. She does have a nebulizer at home. I recommend that she use this every 4 hours. Should she develop fever or worsening symptoms she should be seen for possible aspiration pneumonia. But at this time I do not believe that prophylactic antibiotics are warranted. Lab Data Attestation: I reviewed the patient's lab results. Labs: Laboratory Results - last 24 hr 06/29/21 06/29/21 20:43 20:43 WBC 5.8 RBC 2.90 L Hgb 9.0 L Hct 28.5 L MCV 98.3 MCH 31.0 MCHC 31.6 L RDW Std Deviation 45.6 H RDW Coeff of Abdoul 13.2 Plt Count 295 MPV 10.7 Immature Gran % (Auto) 0.300 Neut % (Auto) 63.7 Lymph % (Auto) 16.6 L Bowie % (Auto) 13.0 H Eos % (Auto) 5.2 H Baso % (Auto) 1.2 H Absolute Neuts (auto) 3.7 Absolute Lymphs (auto) 0.96 Nucleated RBC % 0 Sodium 134 L Potassium 4.3 Chloride 97 L Carbon Dioxide 31.0 Anion Gap 6 BUN 18 Creatinine 3.25 H Estim Creat Clear Calc 13.22 Est GFR (MDRD) Af Amer 19 L Est GFR (MDRD) Non-Af 15 L BUN/Creatinine Ratio 5.5 L Glucose 202 H Calcium 9.8 Total Bilirubin 0.50 AST 13 L ALT 20 Alkaline Phosphatase 75 Total Protein 7.2 Albumin 3.3 Globulin 3.9 Albumin/Globulin Ratio 0.8 L Radiography Diagnostic Testing: Radiology Impression Chest X-Ray 06/29/21 22:09 IMPRESSION: 1. No airspace consolidation. 2. Chronic CHF. 3. Bibasilar scarring. Electronically Signed: Gurpreet Maria MD ([place]) at 22:31 EDT , Service support , EKG Initial EKG: Attestation: I personally reviewed and interpreted this EKG as follows: Comments: Normal sinus rhythm with a ventricular rate of 89 bpm. No significant change from EKG dated 01 May 2021 Discharge Plan Triage Chief Complaint: Seizure ED Provider: Kevon Camacho Dx/Rx/DC Orders Clinical Impression: Aspiration into airway, Near syncope Prescriptions: No Action albuterol sulfate [Ventolin HFA] 90 mcg/actuation HFA aerosol inhaler 2 puff INHALATION Q6H PRN (Reason: Bronchodialation) RF: 0 (DME) blood sugar diagnostic Strip See Rx Instructions .ROUTE .MEDSUPPLY Qty: 150 RF: 12 Prolia 60 mg/mL syringe 60 mg SC [id number] Qty: 1 RF: 1 naproxen sodium [Aleve] 220 mg capsule 220 mg PO BID PRN (Reason: Joint Stiffness) RF: 0 aspirin [Aspirin Low Dose] 81 mg tablet,delayed release (DR/EC) 81 mg PO DAILY RF: 0 fluticasone propionate [Flonase Allergy Relief] 50 mcg/actuation spray,suspension 1 spray intranasal Q12H RF: 0 calcitriol 0.5 mcg capsule 5 mcg PO TID RF: 0 docusate sodium [Stool Softener] 100 mg capsule 100 mg PO DAILY RF: 0 peg 3350-electrolytes 236-22.74-6.74 -5.86 gram recon soln 4,000 ml PO ONCE Qty: 4000 RF: 0 acetaminophen 325 MG tablet 650 mg PO Q6H PRN PRN (Reason: Mild Pain (scale 0-3)/T>100.7) RF: 0 vortioxetine 20 MG tablet 20 mg PO DAILY RF: 0 sucroferric oxyhydroxide 500 MG tablet,chewable 500 mg PO DAILY RF: 0 atorvastatin 80 MG tablet 80 mg PO QHS RF: 0 ergocalciferol (vitamin D2) 50,000 UNIT capsule 50,000 unit PO QMONTH RF: 0 vit B comp no.6-aloxk-R-biotin 1 EACH tablet 1 ea PO QHS RF: 0 insulin aspart U-100 100 UNITS/ML insulin pen 1 - 3 unit SC TID RF: 0 omeprazole 20 mg capsule,delayed release(DR/EC) 20 mg PO DAILY RF: 0 levothyroxine 112 mcg tablet 112 mcg PO DAILY RF: 0 (DME) FreeStyle Rosie 2 Sensor Kit See Rx Instructions .ROUTE .MEDSUPPLY Qty: 2 RF: 11 (DME) pen needle, diabetic [BD Ultra-Fine Short Pen Needle] 31 gauge x 5/16 needle See Rx Instructions .ROUTE .MEDSUPPLY Qty: 100 RF: 3 Levemir FlexTouch U-100 Insuln 100 unit/mL (3 mL) insulin pen 10 unit subcut QHS Qty: 15 RF: 3 Tresiba FlexTouch U-100 100 unit/mL (3 mL) insulin pen 10 unit subcut DAILY Qty: 15 RF: 3 (DME) ReliOn Prime Test Strips Strip See Rx Instructions .ROUTE .MEDSUPPLY Qty: 200 RF: 3 Primary Care Provider: Abraham Montague Referrals: Abraahm Montague MD [Primary Care Provider] - As Needed Disposition Disposition: Home, Self Care
--- NOTE | 2021-06-29 22:09 | RAD_ITS ---
STUDY: X-RAY CHEST REASON FOR EXAM: Female, 60 years old. cough TECHNIQUE: AP COMPARISON: 05/01/2021 FINDINGS: EKG leads project over the chest. Fibrotic scarring in the lung bases stable. No airspace consolidation. There is no demonstrated pleural abnormality. There is mild cardiac enlargement. Normal mediastinum and donato. There is prominence of the pulmonary hilar arteries and peripheral pulmonary arteries, consistent with congestive heart failure (CHF). Normal visualized aortic arch and descending thoracic aorta. No acute bony process. There is no demonstrated abnormality of the visualized soft tissue structures of the upper abdomen. RAD/Chest 1 View (Portable) IMPRESSION: 1. No airspace consolidation. 2. Chronic CHF. 3. Bibasilar scarring. Electronically Signed: Gurpreet Maria MD ([place]) at 22:31 EDT , Service support ,
[2021-06-29 22:13] LABS: Absolute Lymphocyte Count 0.96 X10^3/uL (0.83-4.51); Absolute Neutrophil Count 3.7 X10^3/uL (2.0-7.7); Basophil# 0.07 X10^3/uL; Basophil% 1.2 % (0-1); Eosinophils% 5.2 % (0-5); Hematocrit 28.5 % (37-47); Lymphocyte # 0.96 X10^3/ul (0.83-4.51); Lymphocyte % 16.6 % (19-41); Mean Corp Hgb Conc 31.6 g/dL (32-36); Mean Corpuscular Volume 98.3 fL (81-99); Mean Platelet Vol. 10.7 fl (6.2-12.0); Monocyte# 0.75 X10^3/uL; NRBC Flagged by Analyzer 0 % (0-5); Neutrophil # 3.68 X10^3/uL (2.7-7.7); Neutrophil % 63.7 % (47-70); Platelet Count 295 K/mm3 (150-450); RBC Distribution Width CV 13.2 % (11.6-14.6); RBC Distribution Width SD 45.6 fl (35.1-43.9); White Blood Count 5.8 K/mm3 (4.4-11.0)
[2021-06-29 22:25] VITALS: PULSE 91; RESP 10
[2021-06-29] MEDS: Ipratropium/Albuterol Sulfate 3 ML AMPUL.NEB INHALATION (22:25)
[2021-06-29 22:27] LABS: ALB/GLOB Ratio 0.8 RATIO (0.9-2.4); AST(SGOT) 13 U/L (15-37); Alanine Aminotransfer ALT/SGPT 20 U/L (13-56); Albumin, Serum 3.3 g/dL (3.2-5.0); Alkaline Phosphatase 75 U/L (45-117); Anion Gap 6 (5-15); BUN 18 mg/dL (7-18); BUN/Creat Ratio 5.5 RATIO (10-20); Calcium,Total 9.8 mg/dL (8.5-10.1); Chloride 97 mmol/L (98-107); Creatinine, Serum 3.25 mg/dL (0.55-1.02); EST Glomerular Filtration Rate 15 mL/min (>60); Est Glom Filt Rate - Afr Amer 19 mL/min (>60); Estimated Creatinine Clearance 13.22 ml/min; Globulin 3.9 g/dL (2.2-4.2); Glucose 202 mg/dL (74-106); Potassium 4.3 mmol/L (3.5-5.1); Protein, Total 7.2 g/dL (6.4-8.2); Sodium Level 134 mmol/L (136-145)
[2021-06-30 00:21] VITALS: BP 128/56; PULSE 101; RESP 18; O2SAT 100
== END 2021-06-30 00:21 | disposition home or self-care (01) ==
PROVIDERS: Emergency Provider Emergency Medicine; PCP Family Medicine
DX: T17.918A Gastric contents in respiratory tract, part unspecified causing other injury, initial encounter (principal); X58.XXXA Exposure to other specified factors, initial encounter; Y93.9 Activity, unspecified; Y92.9 Unspecified place or not applicable; R55 Syncope and collapse; E03.9 Hypothyroidism, unspecified; E04.2 Nontoxic multinodular goiter; E10.36 Type 1 diabetes mellitus with diabetic cataract; E10.42 Type 1 diabetes mellitus with diabetic polyneuropathy; E78.5 Hyperlipidemia, unspecified; F32.9 Major depressive disorder, single episode, unspecified; F41.9 Anxiety disorder, unspecified; G47.30 Sleep apnea, unspecified; E10.610 Type 1 diabetes mellitus with diabetic neuropathic arthropathy; I11.0 Hypertensive heart disease with heart failure; I34.0 Nonrheumatic mitral (valve) insufficiency; I25.10 Atherosclerotic heart disease of native coronary artery without angina pectoris; I25.2 Old myocardial infarction; I50.9 Heart failure, unspecified; J44.9 Chronic obstructive pulmonary disease, unspecified; K21.9 Gastro-esophageal reflux disease without esophagitis; M19.90 Unspecified osteoarthritis, unspecified site; M81.0 Age-related osteoporosis without current pathological fracture; Z87.440 Personal history of urinary (tract) infections; Z87.01 Personal history of pneumonia (recurrent); Z99.2 Dependence on renal dialysis; Z79.4 Long term (current) use of insulin; Z79.82 Long term (current) use of aspirin; Z79.899 Other long term (current) drug therapy
CPT/HCPCS: 71045; 80053; 85025; 93005; 94640; 99285; A4216

== ENCOUNTER 2021-07-11 08:50 | Day surgery (SDC) | payer MEDICARE, MEDICAID, SELFPAY ==
--- NOTE | 2021-07-11 10:08 | HP.PCM_ITS ---
History and Physical Date of Admission: 07/11/21 Visit Reasons: Access Flow Issues Chief Complaint: ACCESS FLOW ISSUES Is patient in pain?: No Allergies methadone Allergy (Intermediate, Verified 06/21/21 09:38) Rash mirtazapine [From Remeron] Adverse Reaction (Severe, Verified 06/21/21 09:38) Kidney failure prochlorperazine edisylate [From Compazine] Adverse Reaction (Verified 06/21/21 09:38) Other prochlorperazine maleate [From Compazine] Adverse Reaction (Verified 06/21/21 09:38) Other Medications levothyroxine 125 mcg PO DAILY 01/14/19 [History Confirmed 06/21/21] acetaminophen 650 mg PO Q6H PRN PRN tab 01/20/19 [Rx Confirmed 06/21/21] albuterol sulfate 90 mcg/actuation aerosol inhaler 2 puff INHALATION Q6H PRN 04/09/20 [History Confirmed 06/21/21] naproxen sodium 220 mg capsule 220 mg PO BID PRN 05/11/20 [History Confirmed 06/21/21] aspirin 81 mg tablet,delayed release 81 mg PO DAILY 06/08/20 [History Confirmed 06/21/21] blood sugar diagnostic #150 ea 08/18/20 [Rx Confirmed 06/21/21] denosumab 60 mg/mL subcutaneous syringe 60 mg SC D6OTIINY #1 ml 08/18/20 [Rx Confirmed 06/21/21] flash glucose sensor #2 ea 08/27/20 [Rx Confirmed 06/21/21] sucroferric oxyhydroxide 500 mg PO DAILY 08/31/20 [History Confirmed 06/21/21] vortioxetine 20 mg PO DAILY 08/31/20 [History Confirmed 06/21/21] calcitriol 0.5 mcg capsule 5 mcg PO TID 11/05/20 [History Confirmed 06/21/21] docusate sodium 100 mg capsule 100 mg PO DAILY 11/05/20 [History Confirmed 06/21/21] peg 3350-electrolytes 236 gram-22.74 gram-6.74 gram-5.86 gram solution 4,000 ml PO ONCE #4000 ml 11/05/20 [Rx Confirmed 06/21/21] atorvastatin 80 mg PO QHS 11/15/20 [History Confirmed 06/21/21] ergocalciferol (vitamin D2) 50,000 unit PO QMONTH 11/15/20 [History Confirmed 06/21/21] insulin aspart U-100 1 - 3 unit SC TID 11/15/20 [History Confirmed 06/21/21] vit B comp no.2-vjdoj-O-biotin 1 ea PO QHS 11/15/20 [History Confirmed 06/21/21] pen needle, diabetic 31 gauge x 5/16 #100 ea 03/11/21 [Rx Confirmed 06/21/21] fluticasone propionate 50 mcg/actuation nasal spray,suspension 1 spray INTRANASAL Q12H 03/19/21 [History Confirmed 06/21/21] Levemir FlexTouch U-100 Insuln 100 unit/mL (3 mL) subcutaneous pen 10 unit SUBCUT QHS #15 ml NS 04/02/21 [Rx Confirmed 06/21/21] insulin degludec 100 unit/mL (3 mL) subcutaneous pen 10 unit SUBCUT DAILY #15 ml 05/10/21 [Rx Confirmed 06/21/21] blood sugar diagnostic #200 ea 06/06/21 [Rx Confirmed 06/21/21] [facility] Medical History (Updated 06/21/21 @ 09:[address] Aguila Wagner MD) Anxiety and depression Aortic valve disorder Arthritis Asthma Atherosclerotic heart disease of [place] coronary artery without angina pectoris Back problem Bone fracture Breast lump Cataracts, bilateral Charcot's joint of right foot Chronic headaches COPD (chronic obstructive pulmonary disease) Diabetes type I Diabetic polyneuropathy Essential hypertension GERD (gastroesophageal reflux disease) H/O transfusion of whole blood Heart murmur History of non-ST elevation myocardial infarction (NSTEMI) Hormone deficiency Hyperlipidemia Hypoglycemia Hypothyroidism Kidney failure Multinodular goiter Nonrheumatic mitral valve regurgitation Osteoporosis Pneumonia Recurrent UTI Seasonal allergies Seizure Sleep apnea Thyroid nodule Vascular disease Vision problem Surgical History H/O dilation and curettage H/O tubal ligation history fistulagram (~12/16/18) History of amputation of right great toe History of colonoscopy History of endoscopy History of hand surgery Hx of cataract surgery left arm fistula creation raquel removal r leg tibula/fibula surgery Wrist fracture Family History Mother Arthritis Cancer Hormone deficiency Thyroid disorder Osteoporosis Skin cancer Father Arthritis Diabetes Heart disease Hypertension High cholesterol CVA (cerebral vascular accident) Social History number of children: 1 current occupational status: disabled history of recent travel: No sexually active: No Smoking Status: Never smoker second hand exposure: No alcohol intake: current alcohol intake frequency: holidays/special occasions only substance use type: does not use diet: other well-balanced diet: daily or most days caffeine: Yes Type: carbonated beverages Number of servings: 1 what type of physical activity do you participate in: none seatbelt use: always do you feel safe at home: Yes Female Reproductive History Menstrual Ab spontaneous: 1 HPI HPI HPI: MARLENY DIXON, is a 60 F who presents to the office today for access flow issues and fistula bleeding. The patient's most recent intervention was November 13, 2020. Because of diminished flow in her left forearm transposed looped basilic vein to brachial artery AV fistula I performed a fistulogram with proximal and mid left forearm fistula venous stenosis and this was treated with a 7 x 2 cutting balloon. At that time I accessed the basilic vein closer to the more ulnar aspect of the antecubital space retrograde with flow. The patient does home dialysis. She actually has multiple complaints regarding how she feels after home dialysis. 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 Marleny Pineda. Apparently she recently has also seen Dr. Rasmussen.. The patient claims that she had so much bleeding recently she had to be seen in the emergency room. She notes that the emergency room doctor had very little time to spend with her. I did instruct her that I suspect this is secondary to the Covid pandemic and the current flood of patients. ROS General General: Yes fatigue; No weight change, appetite, colon cancer, breast cancer or weakness HEENT HEENT: No difficulty swallowing, eye injury, eye surgery, swollen glands or hoarseness Endo Endocrine: Yes thyroid disease and diabetes mellitus; No thyroid cancer, Hair loss, heat intolerance or cold intolerance Skin Skin: No rash or changing moles Breast Breast: No left breast lump, right breast lump, nipple discharge, breast pain, abnormal mammogram, abnormal US or breast enlargement Musc Musculoskeletal: Yes back problems and arthritis; No rheumatoid arthritis, gout or joint pain Cardio Cardiovascular: Yes murmur and high blood pressure; No pacemaker, heart disease, atrial fibrillation, heart attack, heart stent, palpitations, shortness of breat with exertion or chest pain Psych Psychiatric: Yes depression and anxiety; No hearing voices Resp Respiratory: Yes shortness of breath, Yes sleep apnea, No cough, No COPD, Yes asthma, No emphysema and No wheezing Gastro Gastrointestinal: No abdominal pain, Yes nausea or vomiting, No diarrhea, No constipation, No blood in stool, No acid reflux, No hemorrhoids, No ulcers, No gallbladder problem and No black,tarry stools Nain Hematologic: Yes blood thinners, No blood disorders, Yes bleeding, Yes anemia and No blood clots Neuro Neurologic: No system reviewed and no additional complaints, except as doc umented, No as per HPI, No abnormal gait, No abnormal hearing, No abnormal movements, No abnormal speech, No behavioral changes, No burning sensations, No confusion, No convulsions, No disequilibrium, No dizziness, No localized weakness, No frequent falls, No headache(s), No lack of coordination, No loss of vision, No memory loss, Yes numbness, No other visual disturbances, No radicular pain, No restless legs, No sensory deficit, No syncope, Yes tingling, No tremor(s), No weakness and No other Exam Const General: comfortable and no acute distress Nutritional Appearance: overweight Orientation: alert and awake [facility] Head: normal to inspection Resp Effort & Inspection: normal respiratory effort Auscultation: clear to auscultation bilaterally Cardio Rate: regular rate Rhythm: regular rhythm GI Palpation: soft Extrem Other: Left forearm loop transposed basilic vein to brachial artery AV fistula. Pulse, thrill, bruit noted. I performed ultrasound inspection. The inflow arterial anastomosis is patent as is the a ferret limb. The apex had previously had had stenosis appears wide open. At the outflow just close to the antecubital crease there is evidence of a valve that appears to be relatively narrowed. COVID (Procedure Consent) Procedure Criteria Procedure Criteria: Yes Elective The surgeon/proceduralist and patient have discussed in detail the risk of exposure to and/or potential harm posed by the COVID-19 virus with having a surgery/procedure at this time versus the risk of delaying the surgery/procedure. It is not possible to know either the risk of delaying the surgery or procedure or chance of getting an infection with perfect accuracy, but a joint decision was made between the patient and the surgeon/proceduralist to proceed at this time with the scheduled surg radha/procedure as indicated on the consent form. Assessment and Plan Assessment and Plan (1) Complication of AV dialysis fistula: Status: Acute Qualifiers: Encounter type: initial encounter Qualified Code(s): T82.9XXA - Unspecified complication of cardiac and vascular prosthetic device, implant and graft, initial encounter Plan - Dr. Aguila Wagner MD: The previously treated areas of this left forearm fistula appeared to be patent today. She appears to be having thickening at a valve in the E ferret limb. I would propose accessing closer to the brachial arterial anastomosis antegrade with flow in order to better treat the outflow. She has had an opportunity to ask and have questions answered. We will schedule and proceed. Copy: Dr. Marleny Wagner M.D., F.A.C.S. I have re-examined the patient. There are no clinical changes since date of exam. Aguila Wagner M.D., F.A.C.S.
--- NOTE | 2021-07-11 11:00 | OP.PCM_ITS ---
Problems Associated Problem List Diagnoses (1) Problem with dialysis access: Report of Operation Date of Procedure: 07/11/21 Pre-Operative Diagnosis: Diminished flow left forearm transposed loop basilic vein to brachial artery arteriovenous hemodialysis fistula Post-Operative Diagnosis: Multiple areas of venous stenosis within the left forearm loop transposed basilic vein to brachial artery AV fistula Surgery/Procedure Performed:: Left upper extremity fistulogram with 8 x 4 conquest angioplasty Description of Surgical Findings:: Timeout and informed consent was obtained. 60-year-old female was taken to the special procedures lab placed on the table. The left extremity sterilely prepped draped. 50 mcg of fentanyl 1 mg Versed were given intravenous sedation. Under ultrasound guidance just proximal to the antecubital crease retrograde with flow 2% lidocaine was instilled and then a micropuncture needle was inserted and a micropuncture wire and a 6 Nigerian short sheath dilator. Using an 03 5 inch Glidewire and 4 Nigerian angled glide cath access was gained to the brachial artery proximal to the anastomosis. Using Isovue contrast a fistulogram was obtained at that proximal forearm antecubital area. This demonstrated a widely patent arterial anastomosis but they were areas of high-grade stenosis within both the afferent limb efferent limb and within the apex of the loop. The patient received 5000's of heparin. An 8 x 4 conquest balloon was inserted. Multiple areas of balloon angioplasty up to 35 josephine of pressure was performed for 2 minutes for each. At the completion of the balloon was removed and the able guide cath was replaced. Final fistulogram was obtained demonstrated improvement at all areas of stenosis but approximately 15% stenosis both proximally and distally within that loop. Clinically however the patient had tremendous improvement in the palpable pulse and palpable thrill. I completed the fistulogram inspecting the upper arm and outflow area which was normal. I elected to complete the procedure. The sheath was removed U suture of 4-0 nylon was placed. Hemostasis is intact. Hand was viable no apparent complication. The patient has a transposed left forearm basilic vein to brachial artery looped AV fistula in the proximal forearm. Within the proximal and distal portions of the loop as well as the apex there are areas of clinically significant stenosis. Subsequent to the 8 x 4 conquest angioplasty there is dramatic clinical improvement. There is still some areas of residual low-grade stenosis. If the patient requires additional future treatment would consider possibly a an 8 mm cutting balloon or possibly a one size larger balloon but that would pose likely some risk. Aguila Wagner M.D., F.A.C.S. Surgeon: Aguila Wagner Type of Anesthesia: IV Sedation and Local
== END 2021-07-11 12:10 | disposition home or self-care (01) ==
LOC: CLSP 08:52
PROVIDERS: PCP Family Medicine; Referring Provider Surgery; Visit Provider Surgery
DX: T82.858A Stenosis of other vascular prosthetic devices, implants and grafts, initial encounter (principal); Y83.2 Surgical operation with anastomosis, bypass or graft as the cause of abnormal reaction of the patient, or of later complication, without mention of misadventure at the time of the procedure; F41.9 Anxiety disorder, unspecified; F32.9 Major depressive disorder, single episode, unspecified; M19.90 Unspecified osteoarthritis, unspecified site; I25.10 Atherosclerotic heart disease of native coronary artery without angina pectoris; E10.36 Type 1 diabetes mellitus with diabetic cataract; E10.42 Type 1 diabetes mellitus with diabetic polyneuropathy; H26.9 Unspecified cataract; J44.9 Chronic obstructive pulmonary disease, unspecified; I10 Essential (primary) hypertension; K21.9 Gastro-esophageal reflux disease without esophagitis; I25.2 Old myocardial infarction; E78.5 Hyperlipidemia, unspecified; E03.9 Hypothyroidism, unspecified; I34.0 Nonrheumatic mitral (valve) insufficiency; G47.30 Sleep apnea, unspecified; M81.0 Age-related osteoporosis without current pathological fracture; G40.909 Epilepsy, unspecified, not intractable, without status epilepticus; Z87.01 Personal history of pneumonia (recurrent); Z87.440 Personal history of urinary (tract) infections; Z79.4 Long term (current) use of insulin; Z79.82 Long term (current) use of aspirin; Z79.899 Other long term (current) drug therapy; Z99.2 Dependence on renal dialysis
CPT/HCPCS: 36902; 76937; 99152; 99153; Q9967; C1725; C1769

== ENCOUNTER → 2021-09-12 14:20 | Outpatient (CLI) | payer MEDICARE, MEDICAID, SELFPAY ==
[2020-12-17 12:34] VITALS: BMI 31.6
[2021-09-12 14:27] VITALS: BP 147/63; PULSE 104; RESP 16; TEMP 36.1; O2SAT 99; BMI 32.3
[2021-09-12] MEDS: DENOSUMAB 60 MG/ML SC (14:37)
== END ==
PROVIDERS: PCP Family Medicine; Referring Provider Internal Medicine Endocrinology, Diabetes & Metabolism; Visit Provider Internal Medicine Endocrinology, Diabetes & Metabolism
DX: M81.0 Age-related osteoporosis without current pathological fracture (principal)
CPT/HCPCS: 96372; J0897

== ENCOUNTER → 2021-09-14 10:41 | Outpatient (CLI) | payer MEDICARE, MEDICAID, SELFPAY ==
--- NOTE | 2021-09-14 10:41 | BI_ITS ---
MAMMOGRAPHY - BILATERAL SCREENING REASON FOR EXAM: Female, 60 years old. Routine annual screening examination. PERTINENT HISTORY: Mother with breast cancer. Aunt with breast cancer. TECHNIQUE: Digital bilateral breast roxie (3D mammographic acquisition) in the CC and MLO projections. 2-D mediolateral oblique (MLO) and craniocaudad (CC) views of both breasts were obtained. CAD: Full Field Digital Mammography with Computer Added Detection was performed. COMPARISON: Comparison is made with prior examination dated 04/25/2020. FINDINGS: Breast Composition: The breasts are heterogeneously dense, which may obscure small masses. There are no dominant masses or suspicious calcifications. No other significant abnormalities are identified. There has been no significant change since the prior study. BI/SCRN MAMM (CAD)W/ROXIE BILAT IMPRESSION: Stable bilateral screening mammogram. Yearly follow-up mammogram recommended. (A) ASSESSMENT CATEGORY: BIRADS Category 1: Negative. A letter regarding these results will be sent to the patient by the facility within 30 days. Approximately 10% of breast cancers are not detected by mammography. A normal mammogram should not delay biopsy of a clinically suspicious abnormality. [id number] Electronically Signed: Todd Zapien MD at 8:42 EST , Service support ,
== END ==
PROVIDERS: PCP Family Medicine; Referring Provider Obstetrics & Gynecology; Visit Provider Obstetrics & Gynecology
DX: Z12.31 Encounter for screening mammogram for malignant neoplasm of breast (principal)
CPT/HCPCS: 77063; 77067

== ENCOUNTER → 2021-09-18 08:37 | Outpatient (CLI) | payer MEDICARE, MEDICAID, SELFPAY ==
[2021-09-18] VITALS (7 sets, daily range): BP systolic 116–130; BP diastolic 42–56; PULSE 84–90; RESP 16; TEMP 36.2–37.2; O2SAT 96–99
== END ==
PROVIDERS: PCP Family Medicine; Referring Provider Internal Medicine Nephrology; Visit Provider Internal Medicine Nephrology
DX: D64.9 Anemia, unspecified (principal); R19.00 Intra-abdominal and pelvic swelling, mass and lump, unspecified site
CPT/HCPCS: 36415; 36430; 74019; 86850; 86900; 86901; 86920; 86922; J7040; P9016; A4216

== ENCOUNTER → 2021-09-18 17:00 | Outpatient (CLI) | payer MEDICARE, MEDICAID, SELFPAY ==
--- NOTE | 2021-09-18 17:04 | RAD_ITS ---
EXAM: XR ABDOMEN, 2 VIEWS CLINICAL INDICATION: ABDOMINAL SWELLING Technologist Notes Abdominal bloating and discomfort and constipation for a couple of weeks now. Per patient she has stage 5 kidney failure, and does home dialysis. Her hemoglobin dropped today and had an infusion. TECHNIQUE: Frontal view of the abdomen/pelvis with upright view of the abdomen. This report was created using [email or web address] report generation technology. COMPARISON: None. FINDINGS: LOWER THORAX: No acute pathology. INTRAPERITONEAL SPACE: No free air. GASTROINTESTINAL TRACT: Unremarkable. Non-obstructive. No bowel or stomach distention. ORGANS: Stool throughout the colon. There are calcified phleboliths in the pelvis. This makes differentiation with distal ureteral stones difficult. No organomegaly. BONES/JOINTS: Degenerative findings in the lumbar spine. There is scoliosis of the lumbar spine. SOFT TISSUES: No acute pathology. RAD/Abd Inc Decub and/or Erect IMPRESSION: Constipation. Electronically Signed: Kirby Medina MD at 17:30 EST , Service support ,
== END ==
PROVIDERS: PCP Family Medicine; Referring Provider Family Medicine; Visit Provider Family Medicine
DX: R19.00 Intra-abdominal and pelvic swelling, mass and lump, unspecified site (principal)
CPT/HCPCS: 74019

== ENCOUNTER → 2021-10-03 11:45 | Outpatient (CLI) | payer MEDICARE, MEDICAID, SELFPAY ==
[2021-10-03 15:15] LABS: Absolute Lymphocyte Count 0.61 X10^3/uL (0.83-4.51); Absolute Neutrophil Count 2.8 X10^3/uL (2.0-7.7); Basophil% 2.3 % (0-1); Eosinophil# 0.33 X10^3/uL; Eosinophils% 7.5 % (0-5); Hematocrit 41.1 % (37-47); Hemoglobin 12.2 g/dL (12.0-15.0); Lymphocyte # 0.61 X10^3/ul (0.83-4.51); Lymphocyte % 13.8 % (19-41); Mean Corp Hgb Conc 29.7 g/dL (32-36); Mean Corpuscular Volume 94.3 fL (81-99); Mean Platelet Vol. 10.6 fl (6.2-12.0); Monocyte# 0.58 X10^3/uL; Monocyte% 13.2 % (0-10); NRBC Flagged by Analyzer 0 % (0-5); Neutrophil # 2.78 X10^3/uL (2.7-7.7); Platelet Count 295 K/mm3 (150-450); RBC Distribution Width CV 15.9 % (11.6-14.6); RBC Distribution Width SD 55.8 fl (35.1-43.9); Red Blood Count 4.36 M/mm3 (4.2-5.4); White Blood Count 4.4 K/mm3 (4.4-11.0)
[2021-10-03 15:35] LABS: Vitamin D,25 Hydroxy 50.1 ng/mL
[2021-10-03 15:40] LABS: ALB/GLOB Ratio 0.9 RATIO (0.9-2.4); AST(SGOT) 11 U/L (15-37); Alanine Aminotransfer ALT/SGPT 24 U/L (13-56); Albumin, Serum 3.5 g/dL (3.2-5.0); Alkaline Phosphatase 109 U/L (45-117); Anion Gap 9 (5-15); BUN 12 mg/dL (7-18); Calcium,Total 8.5 mg/dL (8.5-10.1); Chloride 95 mmol/L (98-107); Cholesterol 142 mg/dL (200); Creatinine, Serum 2.38 mg/dL (0.55-1.02); EST Glomerular Filtration Rate 22 mL/min (>60); Est Glom Filt Rate - Afr Amer 27 mL/min (>60); Globulin 3.9 g/dL (2.2-4.2); Glucose 241 mg/dL (74-106); High Density Lipoprotein 72 mg/dL; Potassium 4.5 mmol/L (3.5-5.1); Protein, Total 7.4 g/dL (6.4-8.2); Sodium Level 136 mmol/L (136-145); T4 Free Direct 1.65 ng/dL (0.76-1.46); Thyroid Stim Hormone (TSH) 3.04 uIU/mL (0.358-3.74); Triglycerides 135 mg/dL; Very Low Density Lipoprotein 27 mg/dL (5-40)
[2021-10-03 15:50] LABS: Hemoglobin A1c 6.1 % (3.8-5.6)
[2021-10-04 11:20] LABS: PTHIN 634.7 pg/mL (18.4-80.1)
[2021-10-07 14:05] LABS: Vitamin D 1,25-Dihydroxy 55.8 pg/mL (19.9-79.3)
== END ==
PROVIDERS: PCP Family Medicine; Visit Provider Family Medicine
DX: E78.5 Hyperlipidemia, unspecified (principal); E03.9 Hypothyroidism, unspecified; N18.6 End stage renal disease; E10.22 Type 1 diabetes mellitus with diabetic chronic kidney disease
CPT/HCPCS: 36415; 80053; 80061; 82306; 82652; 83036; 83970; 84439; 84443; 85025

== ENCOUNTER 2021-10-17 16:00 | Outpatient (CLI) | payer MEDICARE, MEDICAID, SELFPAY | END 2021-10-17 23:59 | disposition short-term general hospital (02) | LOC: LABSPEC 16:03 | PROVIDERS: PCP Family Medicine; Referring Provider Family Medicine; Visit Provider Family Medicine | DX: U07.1 COVID-19 (principal) | CPT/HCPCS: 87635; U0003; U0005 ==

== ENCOUNTER 2021-10-19 12:21 | Inpatient (IN) | payer MEDICARE, MEDICAID, SELFPAY ==
[2021-10-19] VITALS (12 sets, daily range): BP systolic 111–126; BP diastolic 41–93; PULSE 83–88; RESP 17–20; TEMP 36.3–37; O2SAT 86–99; BMI 40.8
--- NOTE | 2021-10-19 13:13 | EKG12_ITS ---
Test Reason : Blood Pressure : / mmHG Vent. Rate : 085 BPM Atrial Rate : 085 BPM P-R Int : 118 ms QRS Dur : 080 ms QT Int : 376 ms P-R-T Axes : 031 024 036 degrees QTc Int : 447 ms Normal sinus rhythm Low voltage QRS (Limb Leads) Confirmed by GRAHAM SARKAR, CLEMENT ([id number]), make up editor SALOME MA ([id number]) on 10/21/2021 10:49:00 AM Referred By: Confirmed By:CLEMENT STEVESNON MD
--- NOTE | 2021-10-19 13:14 | EDS_ITS ---
HPI History of Present Illness Chief Complaint: Weakness Informant: patient and EMS Narrative Narrative: 60-year-old female arriving to the emergency department via EMS stating that she has COVID-19 and she does not feel well. She states that she has been feeling poorly all week and as a result has not made it to dialysis Thursday or today. She states that because she is COVID-19 she needs to go to a different dialysis center up in [place] but did not think she could make it there today. She notes a cough and some nausea. She notes generalized myalgias and fatigue. She was COVID vaccinated. She follows with Dr. Parsons for nephrology. [facility] Medical History (Updated 10/19/21 @ 15:[address] Kevon Camacho, ) Anxiety and depression Aortic valve disorder Arthritis Asthma Atherosclerotic heart disease of [place] coronary artery without angina pectoris Back problem Bone fracture Breast lump Cataracts, bilateral Charcot's joint of right foot Chronic headaches COPD (chronic obstructive pulmonary disease) Diabetes type I Diabetic polyneuropathy Essential hypertension GERD (gastroesophageal reflux disease) H/O transfusion of whole blood Heart murmur History of non-ST elevation myocardial infarction (NSTEMI) Hormone deficiency Hyperlipidemia Hypoglycemia Hypothyroidism Kidney failure Multinodular goiter Nonrheumatic mitral valve regurgitation Osteoporosis Pneumonia Recurrent UTI Seasonal allergies Seizure Sleep apnea Thyroid nodule Vascular disease Vision problem Home Medications acetaminophen 650 mg PO Q6H PRN PRN tab 01/20/19 [Rx Last Taken Unknown] albuterol sulfate 90 mcg/actuation aerosol inhaler 2 puff INHALATION Q6H PRN 04/09/20 [History Last Taken Unknown] naproxen sodium 220 mg capsule 220 mg PO BID PRN 05/11/20 [History Last Taken Unknown] aspirin 81 mg tablet,delayed release 81 mg PO DAILY 06/08/20 [History Last Taken Unknown] blood sugar diagnostic #150 ea 08/18/20 [Rx Last Taken Unknown] ergocalciferol (vitamin D2) 50,000 unit PO QMONTH 11/15/20 [History Last Taken Unknown] pen needle, diabetic 31 gauge x 02/17 #100 ea 03/11/21 [Rx Last Taken Unknown] blood sugar diagnostic #200 ea 06/06/21 [Rx Last Taken Unknown] levothyroxine 112 mcg PO DAILY 06/29/21 [History Last Taken 07/11/21] atorvastatin 80 mg tablet 80 mg PO QHS #90 tab 07/16/21 [Rx Last Taken Unknown] ibuprofen 600 mg tablet 600 mg PO .PRN tab 07/16/21 [History Last Taken Unknown] midodrine 10 mg tablet 10 mg PO .COMPLEX tab 07/16/21 [History Last Taken Unknown] blood sugar diagnostic #100 ea 08/01/21 [Rx Last Taken Unknown] denosumab 60 mg/mL subcutaneous syringe 60 mg SC [id number] #1 ml 08/09/21 [Rx Last Taken Unknown] insulin aspart U-100 100 unit/mL (3 mL) subcutaneous pen 1 - 3 unit SC TID #15 ml 08/26/21 [Rx Last Taken Unknown] aripiprazole 2 mg PO DAILY 09/12/21 [History Last Taken Unknown] flash glucose sensor #2 ea 09/12/21 [Rx Last Taken Unknown] hydroxyzine HCl 25 mg PO BID PRN 09/12/21 [History Last Taken Unknown] sevelamer HCl 800 mg PO TID 09/12/21 [History Last Taken Unknown] insulin degludec [Tresiba FlexTouch U-100] 9 unit SUBCUT BID 10/19/21 [History Last Taken Unknown] Allergy/AdvReac Type Severity Reaction Status Date / Time methadone Allergy Intermediate Rash Verified 10/19/21 12:21 mirtazapine [From Remeron] AdvReac Severe Kidney Verified 10/19/21 12:21 failure prochlorperazine edisylate AdvReac Other Verified 10/19/21 12:21 [From Compazine] prochlorperazine maleate AdvReac Other Verified 10/19/21 12:21 [From Compazine] Family History Mother Arthritis Cancer Hormone deficiency Thyroid disorder Osteoporosis Skin cancer Father Arthritis Diabetes Heart disease Hypertension High cholesterol CVA (cerebral vascular accident) Surgical History H/O dilation and curettage H/O tubal ligation history fistulagram (~12/16/18) History of amputation of right great toe History of colonoscopy History of endoscopy History of hand surgery Hx of cataract surgery left arm fistula creation raquel removal r leg tibula/fibula surgery Wrist fracture Social History number of children: 1 current occupational status: disabled history of recent travel: No sexually active: No Smoking Status: Never smoker second hand exposure: No alcohol intake: current alcohol intake frequency: holidays/special occasions only substance use type: does not use diet: other well-balanced diet: daily or most days caffeine: Yes Type: carbonated beverages Number of servings: 1 what type of physical activity do you participate in: none seatbelt use: always do you feel safe at home: Yes ROS ROS ED ROS Narrative Generalized fatigue Constitutional Constitutional ED: Reports chills and fever(s); Denies weight loss Eyes Eyes: Denies change in vision or diplopia ENT ENT ED: Denies ear pain, rhinorrhea or sore throat Cardiovascular Cardiovascular: Denies chest pain, orthopnea, palpitations or racing heartbeat Respiratory/Chest Respiratory/Chest: Reports cough; Denies dyspnea or orthopnea Gastrointestinal Gastrointestinal: Reports nausea; Denies abdominal pain, diarrhea or vomiting Genitourinary Genitourinary ED: Denies dysuria, hematuria or urinary frequency Musculoskeletal Musculoskeletal: Reports myalgias; Denies arthralgias Integumentary Denies abscess or rash Neurologic Neurologic: Denies headache(s) or weakness Psychiatric Psychiatric: Denies anxiety, depression, suicidal ideation or suicidal thoughts Endocrine Endocrinology: Denies polydipsia, polyphagia or polyuria Allergic/Immunologic Allergic/Immunologic ED: Denies mouth swelling, tongue swelling or urticaria EXAM Physical Exam Const Vital Signs: 10/19/21 12:22 10/19/21 13:45 10/19/21 13:46 Temperature 97.3 F L Temperature Source Oral Pulse Rate 84 87 Respiratory Rate 17 19 H Respiratory Effort Normal Non-Labored Respiratory Pattern Normal Blood Pressure 126/65 H 115/56 L Blood Pressure Mean 85 75 Pulse Ox 95 86 95 Oxygen Delivery Method Room Air Room Air Nasal Cannula Oxygen Flow Rate (L/min) 2 10/19/21 14:27 Temperature 98.0 F Temperature Source Oral Pulse Rate 85 Respiratory Rate 17 Respiratory Effort Respiratory Pattern Blood Pressure 125/93 H Blood Pressure Mean 103 Pulse Ox 95 Oxygen Delivery Method Nasal Cannula Oxygen Flow Rate (L/min) 2 Positive well nourished and well developed General Appearance ED: well developed HEENT Reports normocephalic, head/scalp atraumatic, TM's clear and moist mucous membranes Negative for trauma Tympanic Membrane ED: Yes TM's clear Eyes PERRL and EOMs intact bilaterally Neck no lymphadenopathy, supple and no JVD Resp normal respiratory effort and clear to auscultation bilaterally Cardio regular rate, regular rhythm and no murmurs GI normal to inspection, nondistended, normoactive bowel sounds and non-tender Palpation: soft Back/Spine no CVA tenderness and normal ROM Extremity normal to inspection General Extremety ED: Negative for edema General Extremity: Negative for edema Neuro oriented x3 and CN's II-XII intact bilaterally Sensorium / Orientation: alert Motor Exam: strength 5/5 throughout Psych mental status grossly normal Mood & Affect: Negative for depressed or tearful Skin no rashes or lesions noted and no wounds MDM MDM MDM Narrative Medical decision making narrative: My interpretation of the chest x-ray is mild pulmonary edema. White count 6.6 and hemoglobin 11.3. Platelet count of 171. Sodium 136 with a potassium of 6.3 creatinine is elevated at 7.54. The patient's EKG does not show changes consistent with hyperkalemia patient developed O2 saturations around 88% which necessitated placing her on a couple liters of oxygen. I spoke with on-call nephrology who reviewed her labs. Plan will be admission today for dialysis. Patient was advised that from a COVID standpoint she is doing pretty good and that she will need to go to outpatient dialysis next week. Lab Data Attestation: I reviewed the patient's lab results. Labs: Laboratory Results - last 24 hr 10/19/21 10/19/21 10/19/21 12:40 12:40 12:40 WBC 6.6 RBC 3.98 L Hgb 11.3 L Hct 35.6 L MCV 89.4 MCH 28.4 MCHC 31.7 L RDW Std Deviation 51.0 H RDW Coeff of Abdoul 15.5 H Plt Count 171 MPV 10.8 Immature Gran % (Auto) 0.300 Neut % (Auto) 73.8 H Lymph % (Auto) 11.6 L [place] % (Auto) 10.7 H Eos % (Auto) 3.0 Baso % (Auto) 0.6 Absolute Neuts (auto) 4.9 Absolute Lymphs (auto) 0.77 L Nucleated RBC % 0 Sodium 136 Potassium 6.3 H* Chloride 101 Carbon Dioxide 27.0 Anion Gap 8 BUN 74 H Creatinine 7.54 H* Estim Creat Clear Calc 5.70 Est GFR (MDRD) Af Amer 7 L Est GFR (MDRD) Non-Af 6 L BUN/Creatinine Ratio 9.8 L Glucose 90 Calcium 7.4 L Phosphorus 7.9 H Magnesium 2.7 H Total Bilirubin 0.80 AST 19 ALT 26 Alkaline Phosphatase 84 Total Protein 6.7 Albumin 3.0 L Globulin 3.7 Albumin/Globulin Ratio 0.8 L Radiography Diagnostic Testing: Clinical Impression(s) from Imaging Studies Chest X-Ray 10/19/21 14:09 IMPRESSION: 1. Increasing opacities may represent edema, early pneumonia and/or atelectasis. Electronically Signed: Gurpreet Maria MD ([place]) at 14:48 EST , Service support , Discharge Plan Dx/Rx/DC Orders Clinical Impression: COVID-19, End-stage renal disease on hemodialysis, Acute hyperkalemia, Acute hypoxemic respiratory failure Disposition Disposition: Acute Care [facility]
[2021-10-19 13:21] LABS: Absolute Lymphocyte Count 0.77 X10^3/uL (0.83-4.51); Absolute Neutrophil Count 4.9 X10^3/uL (2.0-7.7); Basophil# 0.04 X10^3/uL; Basophil% 0.6 % (0-1); Hematocrit 35.6 % (37-47); Hemoglobin 11.3 g/dL (12.0-15.0); Lymphocyte # 0.77 X10^3/ul (0.83-4.51); Lymphocyte % 11.6 % (19-41); Mean Corp Hgb Conc 31.7 g/dL (32-36); Mean Corpuscular Hgb 28.4 pg (27.0-32.0); Mean Corpuscular Volume 89.4 fL (81-99); Mean Platelet Vol. 10.8 fl (6.2-12.0); Monocyte# 0.71 X10^3/uL; Monocyte% 10.7 % (0-10); NRBC Flagged by Analyzer 0 % (0-5); Neutrophil % 73.8 % (47-70); Platelet Count 171 K/mm3 (150-450); RBC Distribution Width CV 15.5 % (11.6-14.6); Red Blood Count 3.98 M/mm3 (4.2-5.4); White Blood Count 6.6 K/mm3 (4.4-11.0)
[2021-10-19] MEDS: Acetaminophen 500 MG Tablet 1000 MG PO (13:43)
[2021-10-19 13:47] LABS: ALB/GLOB Ratio 0.8 RATIO (0.9-2.4); AST(SGOT) 19 U/L (15-37); Alanine Aminotransfer ALT/SGPT 26 U/L (13-56); Alkaline Phosphatase 84 U/L (45-117); Anion Gap 8 (5-15); BUN 74 mg/dL (7-18); BUN/Creat Ratio 9.8 RATIO (10-20); Calcium,Total 7.4 mg/dL (8.5-10.1); Chloride 101 mmol/L (98-107); Creatinine, Serum 7.54 mg/dL (0.55-1.02); EST Glomerular Filtration Rate 6 mL/min (>60); Est Glom Filt Rate - Afr Amer 7 mL/min (>60); Globulin 3.7 g/dL (2.2-4.2); Glucose 90 mg/dL (74-106); Potassium 6.3 mmol/L (3.5-5.1); Protein, Total 6.7 g/dL (6.4-8.2); Sodium Level 136 mmol/L (136-145)
--- NOTE | 2021-10-19 14:09 | RAD_ITS ---
STUDY: X-RAY CHEST REASON FOR EXAM: Female, 60 years old. covid 19 TECHNIQUE: AP COMPARISON: 06/29/2021 FINDINGS: EKG leads project over the chest. Reticular lung opacities in the bilateral lung bases have increased since the prior study. There is no demonstrated pleural abnormality. There is mild cardiac enlargement. Normal mediastinum and donato. Normal visualized pulmonary arteries. There is atherosclerotic tortuosity of the aortic arch and descending thoracic aorta. No acute bony process. There is no demonstrated abnormality of the visualized soft tissue structures of the upper abdomen. RAD/Chest 1 View (Portable) IMPRESSION: 1. Increasing opacities may represent edema, early pneumonia and/or atelectasis. Electronically Signed: Gurpreet Maria MD ([place]) at 14:48 EST , Service support ,
[2021-10-19 14:59] LABS: Magnesium 2.7 mg/dL (1.6-2.6); Phosphorus 7.9 mg/dL (2.5-4.9)
--- NOTE | 2021-10-19 19:08 | PCM.HP.STD ---
HPI - General General Date of Admission: 10/19/21 HPI Narrative 60-year-old female arriving to the emergency department via EMS stating that she has COVID-19 diagnosed 5 days ago. She does not feel well all week, and noticed SOB starting 3 days ago, with low grade temp at 100 degrees. She has not made it to dialysis Thursday or today. She states that because she has COVID-19 she needs to go to a different dialysis center up in [place]. She notes a cough and some nausea. In she noted generalized myalgias and fatigue. She was COVID vaccinated. For the COVID she did not take any therapies or monoclonal antibodies. Patient also noticed spastic jerks that started 3 days ago and have never been this strong. They are worrying her. She denies having any headache or numbness or tingling Evaluation in the ER she had electrolyte derangements with most significant being potassium 6.3, and nephrology was consulted in the ER who recommended dialysis tonight. [facility] Medical History (Updated 10/19/21 @ 19:[address] Chuck Solis MD) Anxiety and depression Aortic valve disorder Arthritis Asthma Atherosclerotic heart disease of [place] coronary artery without angina pectoris Back problem Bone fracture Breast lump Cataracts, bilateral Charcot's joint of right foot Chronic headaches COPD (chronic obstructive pulmonary disease) Diabetes type I Diabetic polyneuropathy Essential hypertension GERD (gastroesophageal reflux disease) H/O transfusion of whole blood Heart murmur History of non-ST elevation myocardial infarction (NSTEMI) Hormone deficiency Hyperlipidemia Hypoglycemia Hypothyroidism Kidney failure Multinodular goiter Nonrheumatic mitral valve regurgitation Osteoporosis Pneumonia Recurrent UTI Seasonal allergies Seizure Sleep apnea Thyroid nodule Vascular disease Vision problem Home Medications acetaminophen 650 mg PO Q6H PRN PRN tab 01/20/19 [Rx Last Taken Unknown] albuterol sulfate 90 mcg/actuation aerosol inhaler 2 puff INHALATION Q6H PRN 04/09/20 [History Last Taken 10/19/21] naproxen sodium 220 mg capsule 220 mg PO BID PRN 05/11/20 [History Last Taken Unknown] aspirin 81 mg tablet,delayed release 81 mg PO DAILY 06/08/20 [History Last Taken 10/19/21] blood sugar diagnostic #150 ea 08/18/20 [Rx Last Taken Unknown] ergocalciferol (vitamin D2) 50,000 unit PO QMONTH 11/15/20 [History Last Taken Unknown] pen needle, diabetic 31 gauge x 02/17 #100 ea 03/11/21 [Rx Last Taken Unknown] blood sugar diagnostic #200 ea 06/06/21 [Rx Last Taken Unknown] levothyroxine 112 mcg PO DAILY 06/29/21 [History Last Taken 10/19/21] ibuprofen 600 mg tablet 600 mg PO PRN PRN tab 07/16/21 [History Last Taken Unknown] midodrine 10 mg tablet 10 mg PO .COMPLEX tab 07/16/21 [History Last Taken 10/12/21] blood sugar diagnostic #100 ea 08/01/21 [Rx Last Taken Unknown] flash glucose sensor #2 ea 09/12/21 [Rx Last Taken Unknown] hydroxyzine HCl 25 mg PO BID PRN 09/12/21 [History Last Taken Unknown] sevelamer HCl 800 mg PO TID 09/12/21 [History Last Taken 10/18/21] atorvastatin 80 mg PO QHS 10/19/21 [History Last Taken 10/18/21] denosumab [Prolia] 60 mg SC [id number] 10/19/21 [History Last Taken Unknown] insulin aspart U-100 1 - 3 unit SC TID 10/19/21 [History Last Taken Unknown] insulin degludec [Tresiba FlexTouch U-100] 9 unit SUBCUT BID 10/19/21 [History Last Taken 10/19/21] Allergy/AdvReac Type Severity Reaction Status Date / Time methadone Allergy Intermediate Rash Verified 10/19/21 12:21 mirtazapine [From Remeron] AdvReac Severe Kidney Verified 10/19/21 12:21 failure prochlorperazine edisylate AdvReac Other Verified 10/19/21 12:21 [From Compazine] prochlorperazine maleate AdvReac Other Verified 10/19/21 12:21 [From Compazine] Family History Mother Arthritis Cancer Hormone deficiency Thyroid disorder Osteoporosis Skin cancer Father Arthritis Diabetes Heart disease Hypertension High cholesterol CVA (cerebral vascular accident) Surgical History H/O dilation and curettage H/O tubal ligation history fistulagram (~12/16/18) History of amputation of right great toe History of colonoscopy History of endoscopy History of hand surgery Hx of cataract surgery left arm fistula creation raquel removal r leg tibula/fibula surgery Wrist fracture Social History number of children: 1 current occupational status: disabled history of recent travel: No sexually active: No Smoking Status: Never smoker second hand exposure: No alcohol intake: current alcohol intake frequency: holidays/special occasions only substance use type: does not use diet: other well-balanced diet: daily or most days caffeine: Yes Type: carbonated beverages Number of servings: 1 what type of physical activity do you participate in: none seatbelt use: always do you feel safe at home: Yes ROS ROS Narrative 10 point review of systems was positive for spasming jerks negative for headache numbness tingling or seizures Patient has no chest pain or racing. Does have a cough with shortness of breath and generalized weakness No trouble with urination or diarrhea or constipation + for significant anxiety + spasmic jerks Vital Signs Vital Signs Vital Signs: 10/19/21 12:22 10/19/21 13:45 10/19/21 13:46 Temperature 97.3 F L Temperature Source Oral Pulse Rate 84 87 Respiratory Rate 17 19 H Respiratory Effort Normal Non-Labored Respiratory Depth Respiratory Pattern Normal Blood Pressure 126/65 H 115/56 L Blood Pressure Mean 85 75 Blood Pressure Source Blood Pressure Position Blood Pressure Location Pulse Ox 95 86 95 Oxygen Delivery Method Room Air Room Air Nasal Cannula Oxygen Flow Rate (L/min) 2 10/19/21 14:27 10/19/21 15:44 10/19/21 15:47 Temperature 98.0 F 98.3 F 98.3 F Temperature Source Oral Oral Oral Pulse Rate 85 83 83 Respiratory Rate 17 18 18 Respiratory Effort Respiratory Depth Respiratory Pattern Blood Pressure 125/93 H 118/56 L 118/56 L Blood Pressure Mean 103 76 76 Blood Pressure Source Blood Pressure Position Blood Pressure Location Pulse Ox 95 96 96 Oxygen Delivery Method Nasal Cannula Nasal Cannula Nasal Cannula Oxygen Flow Rate (L/min) 2 2 2 10/19/21 16:38 10/19/21 17:01 10/19/21 17:03 Temperature 97.9 F Temperature Source Oral Pulse Rate 88 84 Respiratory Rate 20 H Respiratory Effort Normal Non-Labored Respiratory Depth Normal Respiratory Pattern Normal Blood Pressure 111/63 Blood Pressure Mean 79 Blood Pressure Source Monitor Blood Pressure Position Semi-Fowlers Blood Pressure Location Right Arm Pulse Ox 99 Oxygen Delivery Method Nasal Cannula Nasal Cannula Oxygen Flow Rate (L/min) 2 2 10/19/21 17:32 Temperature Temperature Source Pulse Rate Respiratory Rate Respiratory Effort Respiratory Depth Respiratory Pattern Blood Pressure Blood Pressure Mean Blood Pressure Source Blood Pressure Position Blood Pressure Location Pulse Ox Oxygen Delivery Method Nasal Cannula Oxygen Flow Rate (L/min) 2 Weight Weight: 160 lb Body Mass Index (BMI) 2.9 Physical Exam Const alert and no apparent distress HEENT normocephalic and head/scalp atraumatic Eyes PERRL and conjunctivae normal Resp normal respiratory effort and no use of accessory muscles Resp Narrative: there is rhonchi with course sounds, cough noted. Cardio regular rate and regular rhythm GI soft to palpation, non-tender and non-distended Extremity normal to inspection Skin no rashes or lesions noted Neuro Neuro Narrative: She has no focal deficits but does have spasmic jerking, not localized to any particular area. fully cognizant & aware. Psych Mood & Affect: anxious Results Lab / Micro Data Result Diagrams: 10/19/21 12:40 10/19/21 12:40 Labs: Laboratory Results - last 24 hr 10/19/21 12:40: WBC 6.6, RBC 3.98 L, Hgb 11.3 L, Hct 35.6 L, MCV 89.4, MCH 28.4, MCHC 31.7 L, RDW Std Deviation 51.0 H, RDW Coeff of Abdoul 15.5 H, Plt Count 171, MPV 10.8, Immature Gran % (Auto) 0.300, Neut % (Auto) 73.8 H, Lymph % (Auto) 11.6 L, [place] % (Auto) 10.7 H, Eos % (Auto) 3.0, Baso % (Auto) 0.6, Absolute Neuts (auto) 4.9, Absolute Lymphs (auto) 0.77 L, Nucleated RBC % 0 10/19/21 12:40: Sodium 136, Potassium 6.3 H*, Chloride 101, Carbon Dioxide 27.0, Anion Gap 8, BUN 74 H, Creatinine 7.54 H*, Estim Creat Clear Calc 5.70, Est GFR (MDRD) Af Amer 7 L, Est GFR (MDRD) Non-Af 6 L, BUN/Creatinine Ratio 9.8 L, Glucose 90, Calcium 7.4 L, Total Bilirubin 0.80, AST 19, ALT 26, Alkaline Phosphatase 84, Total Protein 6.7, Albumin 3.0 L, Globulin 3.7, Albumin/Globulin Ratio 0.8 L 10/19/21 12:40: Phosphorus 7.9 H, Magnesium 2.7 H Radiology Impression Chest X-Ray 10/19/21 14:09 IMPRESSION: 1. Increasing opacities may represent edema, early pneumonia and/or atelectasis. Electronically Signed: Gurpreet Maria MD ([place]) at 14:48 EST , Service support , Assessment & Plan Assessment/Plan (1) Acute hyperkalemia: (2) COVID-19: (3) Missed dialysis: PLAN: Missed dialysis Volume Overload -Complicated due to the fact the patient had COVID infection -Nephrology was consulted in the ER -Patient underwent dialysis -Monitor hyperkalemia on tomorrow's labs -Monitor spasms & check ionized calcium COVID infection -Dexamethasone 6 mg x 10 days, start today given desaturation. -She is vaccinated previously -DuoNebs while awake -Incentive spirometry and Pep -Continue contact precautions -No respiratory compromise at this point Diabetes: Resume home insulin 9 U glargine BID, routine glucose checks, with SSI as needed Renal diet Continue DVT Prophylaxis with renally dosed lovenox Full Code Chuck Solis MD Charges/Coding Visit Charges Inpatient E&M: 34023 Init Hosp L3
[2021-10-19 19:16] LABS: Bedside Glucose 69 mg/dL (70-110)
--- NOTE | 2021-10-19 20:28 | DIALYSIS ---
Hemodialysis tx completed x 3 hours as ordered. Pt tolerated tx fair. Fluid removed 1,000ml using crit-line monitor to b-profile and BV change of 10%. Vitals stable throughout tx. Verbal report given to NABILA Dougherty post tx.
[2021-10-19] MEDS: LORazepam 2 MG/ML Syringe 1 MG IV (20:52)
[2021-10-19] MEDS: Ondansetron 4 MG/2 ML Vial IV (20:52)
[2021-10-19] MEDS: dexAMETHasone 4 MG/ML Vial 6 MG IV (20:52)
[2021-10-19] MEDS: 0.9% Saline Lock 10 ML Syringe IV (20:57)
[2021-10-19 21:35] LABS: Bedside Glucose 74 mg/dL (70-110)
[2021-10-19] MEDS: Atorvastatin Calcium 80 MG Tablet PO (23:05)
[2021-10-19] MEDS: Insulin Lispro 100 UNIT/ML INSULN.PEN SC (23:06)
[2021-10-19 23:41] LABS: Bedside Glucose 182 mg/dL (70-110)
[2021-10-20] VITALS (14 sets, daily range): BP systolic 104–141; BP diastolic 46–55; PULSE 72–91; RESP 18–21; TEMP 36.2–37.2; O2SAT 93–96
--- NOTE | 2021-10-20 04:19 | PCS.PANDOC ---
PANDEMIC DOCUMENTATION INITIATED: Date: 05/20/2021 Time: 190
[2021-10-20] MEDS: Insulin Lispro 100 UNIT/ML INSULN.PEN SC ×5 (06:46→22:39)
[2021-10-20 06:55] LABS: Bedside Glucose 318 mg/dL (70-110)
[2021-10-20] MEDS: Ipratropium/Albuterol Sulfate 3 ML AMPUL.NEB INHALATION ×4 (07:08→20:23)
--- NOTE | 2021-10-20 07:59 | CPS ---
started by nursing
[2021-10-20 08:45] LABS: Absolute Lymphocyte Count 0.34 X10^3/uL (0.83-4.51); Absolute Neutrophil Count 4.7 X10^3/uL (2.0-7.7); Hematocrit 37.6 % (37-47); Lymphocyte # 0.34 X10^3/ul (0.83-4.51); Lymphocyte % 6.7 % (19-41); Mean Corp Hgb Conc 31.9 g/dL (32-36); Mean Corpuscular Hgb 28.4 pg (27.0-32.0); Mean Corpuscular Volume 89.1 fL (81-99); Mean Platelet Vol. 11.4 fl (6.2-12.0); Monocyte# 0.07 X10^3/uL; Monocyte% 1.4 % (0-10); NRBC Flagged by Analyzer 0 % (0-5); Neutrophil # 4.66 X10^3/uL (2.7-7.7); Neutrophil % 91.7 % (47-70); POSITIVE DIFFERENTIAL YES; Platelet Count 181 K/mm3 (150-450); RBC Distribution Width CV 15.3 % (11.6-14.6); RBC Distribution Width SD 50.6 fl (35.1-43.9); Red Blood Count 4.22 M/mm3 (4.2-5.4); White Blood Count 5.1 K/mm3 (4.4-11.0)
[2021-10-20 08:58] LABS: Differential Indicated SCAN CRITERIA MET
[2021-10-20 09:08] LABS: ALB/GLOB Ratio 0.7 RATIO (0.9-2.4); AST(SGOT) 24 U/L (15-37); Alanine Aminotransfer ALT/SGPT 31 U/L (13-56); Albumin, Serum 2.8 g/dL (3.2-5.0); Alkaline Phosphatase 102 U/L (45-117); Anion Gap 12 (5-15); BUN 40 mg/dL (7-18); BUN/Creat Ratio 8.4 RATIO (10-20); Calcium,Total 6.8 mg/dL (8.5-10.1); Chloride 94 mmol/L (98-107); Creatinine, Serum 4.78 mg/dL (0.55-1.02); EST Glomerular Filtration Rate 10 mL/min (>60); Est Glom Filt Rate - Afr Amer 12 mL/min (>60); Estimated Creatinine Clearance 14.34 ml/min; Glucose 327 mg/dL (74-106); Magnesium 2.5 mg/dL (1.6-2.6); Potassium 5.5 mmol/L (3.5-5.1); Protein, Total 6.8 g/dL (6.4-8.2); Sodium Level 131 mmol/L (136-145)
[2021-10-20] MEDS: 0.9% Saline Lock 10 ML Syringe IV ×2 (09:11→23:20)
[2021-10-20] MEDS: dexAMETHasone 4 MG/ML Vial 6 MG IV (09:12)
[2021-10-20] MEDS: SEVELAMER CARBONATE 800 MG TABLET PO ×3 (09:13→16:25)
[2021-10-20] MEDS: Levothyroxine 112 MCG Tablet PO (09:13)
[2021-10-20] MEDS: Aspirin E.C. 81 MG Tablet PO (09:13)
[2021-10-20] MEDS: Enoxaparin 30 MG/0.3 ML Syringe SC (09:13)
--- NOTE | 2021-10-20 09:52 | PCM.CONS.R ---
Assessment & Plan Assessment/Plan (1) End-stage renal disease on hemodialysis: PLAN: - Prior to yesterday, the patient had not been dialyzed since 10/12/2021 because she did not drive to [facility] dialysis unit. -The patient was dialyzed yesterday. There is no signs of volume overload or acidosis today. There is no need for dialysis today. -The patient is still mildly hyperkalemic, but her blood sugar is over 300 as well. I suspect that potassium will get better once blood sugar is better controlled. -We will recheck renal profile tomorrow to assess whether she needs further dialysis prior to 10/12/2021. -We will need to get social service help to see if the patient has a way to get to the [facility] dialysis unit until she tested negative for the infection. (2) Hyperkalemia: PLAN: - The patient presented with potassium level of 6.3 mmol/L. Hyperkalemia was likely due to missing dialysis. -The patient's potassium level is down to 5.5 mmol/L today. I suspect though that most of the hyperkalemia today is due to hyperglycemia. -Potassium level should improve with better sugar control. -No need for dialysis today. (3) Hyperphosphatemia: PLAN: - Phosphorus level was 7.9 mg/dL on presentation yesterday. Hypophosphatemia is likely due to missing dialysis as well. -Continue the patient on sevelamer with meals. -Recheck calcium and phosphorus level tomorrow. (4) COVID-19: PLAN: - The patient is on dexamethasone. She is also requiring nasal cannula oxygen. -Treatment as per hospital medicine service. HPI Consult Data Date of Consult: 10/20/21 HPI Narrative Reason for Consultation: ESRD HPI Narrative: The patient is a 60-year-old woman who is known to our service with end-stage renal disease. The patient dialyzes at [facility] on a Thursday, and Thursday schedule. The patient started feeling unwell on 10/11/2021 with cough, shortness of breath and malaise. She was seen by her PCP, and had a positive COVID-19 test on 10/14/2021. Because of the positive COVID-19 test, the patient was supposed to be dialyzed that [facility] in [place], [place] which is our [facility] cohort dialysis unit. However, the patient did not have a way to get to the [facility] dialysis unit. She has not been dialyzed since 10/12/2021 prior to this admission. The patient was dialyzed yesterday urgently because of hyperkalemia. She denies current chest pain, nausea, vomiting, or edema. She still has mainly nonproductive cough and is still dyspneic. She is requiring nasal cannula oxygen. [facility] Medical History (Updated 10/20/21 @ 09:[address] Orville Medel MD) Anxiety and depression Aortic valve disorder Arthritis Asthma Atherosclerotic heart disease of [place] coronary artery without angina pectoris Back problem Bone fracture Breast lump Cataracts, bilateral Charcot's joint of right foot Chronic headaches COPD (chronic obstructive pulmonary disease) Diabetes type I Diabetic polyneuropathy Essential hypertension GERD (gastroesophageal reflux disease) H/O transfusion of whole blood Heart murmur History of non-ST elevation myocardial infarction (NSTEMI) Hormone deficiency Hyperlipidemia Hypoglycemia Hypothyroidism Kidney failure Multinodular goiter Nonrheumatic mitral valve regurgitation Osteoporosis Pneumonia Recurrent UTI Seasonal allergies Seizure Sleep apnea Thyroid nodule Vascular disease Vision problem Home Medications acetaminophen 650 mg PO Q6H PRN PRN tab 01/20/19 [Rx Last Taken Unknown] albuterol sulfate 90 mcg/actuation aerosol inhaler 2 puff INHALATION Q6H PRN 04/09/20 [History Last Taken 10/19/21] naproxen sodium 220 mg capsule 220 mg PO BID PRN 05/11/20 [History Last Taken Unknown] aspirin 81 mg tablet,delayed release 81 mg PO DAILY 06/08/20 [History Last Taken 10/19/21] blood sugar diagnostic #150 ea 08/18/20 [Rx Last Taken Unknown] ergocalciferol (vitamin D2) 50,000 unit PO QMONTH 11/15/20 [History Last Taken Unknown] pen needle, diabetic 31 gauge x 02/17 #100 ea 03/11/21 [Rx Last Taken Unknown] blood sugar diagnostic #200 ea 06/06/21 [Rx Last Taken Unknown] levothyroxine 112 mcg PO DAILY 06/29/21 [History Last Taken 10/19/21] ibuprofen 600 mg tablet 600 mg PO PRN PRN tab 07/16/21 [History Last Taken Unknown] midodrine 10 mg tablet 10 mg PO .COMPLEX tab 07/16/21 [History Last Taken 10/12/21] blood sugar diagnostic #100 ea 08/01/21 [Rx Last Taken Unknown] flash glucose sensor #2 ea 09/12/21 [Rx Last Taken Unknown] hydroxyzine HCl 25 mg PO BID PRN 09/12/21 [History Last Taken Unknown] sevelamer HCl 800 mg PO TID 09/12/21 [History Last Taken 10/18/21] atorvastatin 80 mg PO QHS 10/19/21 [History Last Taken 10/18/21] denosumab [Prolia] 60 mg SC [id number] 10/19/21 [History Last Taken Unknown] insulin aspart U-100 1 - 3 unit SC TID 10/19/21 [History Last Taken Unknown] insulin degludec [Tresiba FlexTouch U-100] 9 unit SUBCUT BID 10/19/21 [History Last Taken 10/19/21] Allergy/AdvReac Type Severity Reaction Status Date / Time methadone Allergy Intermediate Rash Verified 10/19/21 12:21 mirtazapine [From Remeron] AdvReac Severe Kidney Verified 10/19/21 12:21 failure prochlorperazine edisylate AdvReac Other Verified 10/19/21 12:21 [From Compazine] prochlorperazine maleate AdvReac Other Verified 10/19/21 12:21 [From Compazine] Family History Mother Arthritis Cancer Hormone deficiency Thyroid disorder Osteoporosis Skin cancer Father Arthritis Diabetes Heart disease Hypertension High cholesterol CVA (cerebral vascular accident) Surgical History H/O dilation and curettage H/O tubal ligation history fistulagram (~12/16/18) History of amputation of right great toe History of colonoscopy History of endoscopy History of hand surgery Hx of cataract surgery left arm fistula creation raquel removal r leg tibula/fibula surgery Wrist fracture Social History number of children: 1 current occupational status: disabled history of recent travel: No sexually active: No Smoking Status: Never smoker second hand exposure: No alcohol intake: current alcohol intake frequency: holidays/special occasions only substance use type: does not use diet: other well-balanced diet: daily or most days caffeine: Yes Type: carbonated beverages Number of servings: 1 what type of physical activity do you participate in: none seatbelt use: always do you feel safe at home: Yes ROS ROS Narrative 09/15 ROS was done. Review of system was otherwise noncontributory. Physical Exam Narrative General: Alert and oriented x3, in no apparent distress. HEENT: Normocephalic, atraumatic, mucous membranes moist, no mucosal erythema. PERRLA, EOMI, hearing is intact. Heart: Normal S1, S2. No rubs or murmurs. Lungs: Diffuse wheezing bilaterally. Abdomen: Normal bowel sound, soft, nontender, no guarding or rebound. Extremity: No clubbing, cyanosis or edema. Neurologic: No focal neurologic deficits. Skin: Warm and dry, no rash. Musculoskeletal: Full passive range of motion, no joint swelling. Psychiatric: Normal mood and affect. Lab / Micro Data Result Diagrams: 10/20/21 07:53 10/20/21 07:53 Labs: Laboratory Results - last 24 hr 10/19/21 12:40: WBC 6.6, RBC 3.98 L, Hgb 11.3 L, Hct 35.6 L, MCV 89.4, MCH 28.4, MCHC 31.7 L, RDW Std Deviation 51.0 H, RDW Coeff of Abdoul 15.5 H, Plt Count 171, MPV 10.8, Immature Gran % (Auto) 0.300, Neut % (Auto) 73.8 H, Lymph % (Auto) 11.6 L, [place] % (Auto) 10.7 H, Eos % (Auto) 3.0, Baso % (Auto) 0.6, Absolute Neuts (auto) 4.9, Absolute Lymphs (auto) 0.77 L, Nucleated RBC % 0 10/19/21 12:40: Sodium 136, Potassium 6.3 H*, Chloride 101, Carbon Dioxide 27.0, Anion Gap 8, BUN 74 H, Creatinine 7.54 H*, Estim Creat Clear Calc 5.70, Est GFR (MDRD) Af Amer 7 L, Est GFR (MDRD) Non-Af 6 L, BUN/Creatinine Ratio 9.8 L, Glucose 90, Calcium 7.4 L, Total Bilirubin 0.80, AST 19, ALT 26, Alkaline Phosphatase 84, Total Protein 6.7, Albumin 3.0 L, Globulin 3.7, Albumin/Globulin Ratio 0.8 L 10/19/21 12:40: Phosphorus 7.9 H, Magnesium 2.7 H 10/19/21 19:10: POC Glucose 69 L 10/19/21 20:05: POC Glucose 74 10/19/21 22:55: POC Glucose 182 H 10/20/21 06:46: POC Glucose 318 H 10/20/21 07:53: WBC 5.1, RBC 4.22, Hgb 12.0, Hct 37.6, MCV 89.1, MCH 28.4, MCHC 31.9 L, RDW Std Deviation 50.6 H, RDW Coeff of Abdoul 15.3 H, Plt Count 181, MPV 11.4, Immature Gran % (Auto) 0.200, Neut % (Auto) 91.7 H, Lymph % (Auto) 6.7 L, [place] % (Auto) 1.4, Eos % (Auto) 0.0, Baso % (Auto) 0.0, Absolute Neuts (auto) 4.7, Absolute Lymphs (auto) 0.34 L, Nucleated RBC % 0 10/20/21 07:53: Sodium 131 L, Potassium 5.5 H, Chloride 94 L, Carbon Dioxide 25.0, Anion Gap 12, BUN 40 H, Creatinine 4.78 H, Estim Creat Clear Calc 14.34, Est GFR (MDRD) Af Amer 12 L, Est GFR (MDRD) Non-Af 10 L, BUN/Creatinine Ratio 8.4 L, Glucose 327 H, Calcium 6.8 L, Magnesium 2.5, Total Bilirubin 0.60, AST 24, ALT 31, Alkaline Phosphatase 102, Total Protein 6.8, Albumin 2.8 L, Globulin 4.0, Albumin/Globulin Ratio 0.7 L Radiology Impression Chest X-Ray 10/19/21 14:09 IMPRESSION: 1. Increasing opacities may represent edema, early pneumonia and/or atelectasis. Electronically Signed: Gurpreet Maria MD ([place]) at 14:48 EST , Service support ,
[2021-10-20 09:59] LABS: Differential Comment SCANNED
[2021-10-20 10:30] LABS: Phosphorus 5.9 mg/dL (2.5-4.9)
[2021-10-20 11:55] LABS: Bedside Glucose 484 mg/dL (70-110)
[2021-10-20 16:35] LABS: Bedside Glucose > 500 mg/dL (70-110)
--- NOTE | 2021-10-20 16:42 | PN.HOSP_ITS ---
Subjective Subjective Patient seen and examined. She feels much better today after she had dialysis yesterday. She had missed 3 previous sessions of dialysis because she could not make it to her dialysis center in [place] where she was being sent because she is COVID-positive. Hyperkalemia has resolved with dialysis and she has remained hemodynamically stable. Review of systems otherwise negative. Objective Data Objective Data Vital Signs: Vital Signs Temp Pulse Resp BP Pulse Ox 98.5 F 82 18 104/48 L 96 10/20/21 16:10 10/20/21 16:10 10/20/21 16:10 10/20/21 16:10 10/20/21 16:10 Oxygen Flow Rate (L/min) 2 Oxygen Delivery Method Nasal Cannula Weight: 160 lb Body Mass Index (BMI) 2.9 Intake & Output: Intake and Output for Last 24 Hours 10/18/21 10/19/21 10/20/21 23:59 23:59 23:59 Intake Total 60 / 60 480 / 480 Output Total 0 / 0 Balance 60 / 60 480 / 480 Lab / Micro Data Result Diagrams: 10/20/21 07:53 10/20/21 07:53 Labs: Laboratory Results - last 24 hr 10/19/21 19:10: POC Glucose 69 L 10/19/21 20:05: POC Glucose 74 10/19/21 22:55: POC Glucose 182 H 10/20/21 06:46: POC Glucose 318 H 10/20/21 07:53: WBC 5.1, RBC 4.22, Hgb 12.0, Hct 37.6, MCV 89.1, MCH 28.4, MCHC 31.9 L, RDW Std Deviation 50.6 H, RDW Coeff of Abdoul 15.3 H, Plt Count 181, MPV 11.4, Immature Gran % (Auto) 0.200, Neut % (Auto) 91.7 H, Lymph % (Auto) 6.7 L, [place] % (Auto) 1.4, Eos % (Auto) 0.0, Baso % (Auto) 0.0, Absolute Neuts (auto) 4.7, Absolute Lymphs (auto) 0.34 L, Nucleated RBC % 0, Differential Comment SCANNED 10/20/21 07:53: Sodium 131 L, Potassium 5.5 H, Chloride 94 L, Carbon Dioxide 25.0, Anion Gap 12, BUN 40 H, Creatinine 4.78 H, Estim Creat Clear Calc 14.34, Est GFR (MDRD) Af Amer 12 L, Est GFR (MDRD) Non-Af 10 L, BUN/Creatinine Ratio 8.4 L, Glucose 327 H, Calcium 6.8 L, Magnesium 2.5, Total Bilirubin 0.60, AST 24, ALT 31, Alkaline Phosphatase 102, Total Protein 6.8, Albumin 2.8 L, Globulin 4.0, Albumin/Globulin Ratio 0.7 L 10/20/21 07:53: Phosphorus 5.9 H 10/20/21 11:45: POC Glucose 484 H* 10/20/21 16:08: POC Glucose > 500 H* Physical Exam Const alert, oriented x3 and no apparent distress Exam Limitations: no limitations HEENT head/scalp atraumatic and moist oral mucous membranes Head and Scalp: normocephalic Eyes PERRL, EOMs intact bilaterally and conjunctivae normal Neck no lymphadenopathy and supple Resp Resp Narrative: diminished breath sounds bibasally, no wheezes or crackles. On 2L of oxygen by nasal canula. Cardio regular rate, regular rhythm, S1 normal heart sound, S2 normal heart sound and no murmurs GI normal to inspection, nondistended, normoactive bowel sounds, soft to palpation, non-tender and non-distended Extremity normal to inspection, full ROM and no clubbing, cyanosis or edema Peripheral Pulses: Yes pulses 2+ throughout Skin no rashes or lesions noted Neuro oriented x3, CN's II-XII intact bilaterally and moves all extremities Sensorium / Orientation: awake and alert Psych affect normal Assessment & Plan Assessment/Plan (1) Missed dialysis: (2) Hyperkalemia: (3) COVID-19: (4) Acute hypoxemic respiratory failure: PLAN: #Acute hypoxic respiratory failure due to covid 19 pneumonia and fluid overload from missed dialysis * Had dialysis yesterday. Hyperkalemia has also resolved. * On 2 L of oxygen. Titrate oxygen to maintain saturation above 90%. * On dexamethasone. Not on remdesivir on account of ESRD. * Titrate oxygen to maintain saturation above 90%. * breathing treatment with bronchodilators * #Fluid overload due to missed dialysis from ESRD: as above on sevelamer for ESRD #Hyperkalemia: K is 5.5. Nephrology on board. Due to ESRd,. #Hyponatremia: Sodium is 131 which is also due to ESRD. Expect to improve with fluid at the dialysis. #Hypocalcemia: Calcium is 6.8. Will replace and trend. Ionized calcium pending. #Diabetes: on lantus 9 units bid. ISS. accuchecks ACHS #Hyperlipidemia: On statin #Hypothyroidism: On Synthroid DVT prophylaxis: lovenox, renal dose Charges/Coding Visit Charges Inpatient E&M: 40299 Subs Hosp L3
[2021-10-20 18:05] LABS: Bedside Glucose 498 mg/dL (70-110)
[2021-10-20 18:26] LABS: Bedside Glucose 449 mg/dL (70-110)
[2021-10-20] MEDS: Atorvastatin Calcium 80 MG Tablet PO (22:40)
[2021-10-20 23:05] LABS: Bedside Glucose 287 mg/dL (70-110)
[2021-10-20] MEDS: Ondansetron 4 MG/2 ML Vial IV (23:20)
[2021-10-21] VITALS (12 sets, daily range): BP systolic 105–131; BP diastolic 46–59; PULSE 70–88; RESP 17–18; TEMP 36.6–37.3; O2SAT 93–100
[2021-10-21] MEDS: Insulin Lispro 100 UNIT/ML INSULN.PEN SC ×4 (06:23→20:43)
[2021-10-21 06:50] LABS: Bedside Glucose 191 mg/dL (70-110)
[2021-10-21 07:40] LABS: ALB/GLOB Ratio 0.7 RATIO (0.9-2.4); AST(SGOT) 18 U/L (15-37); Alanine Aminotransfer ALT/SGPT 26 U/L (13-56); Albumin, Serum 2.9 g/dL (3.2-5.0); Alkaline Phosphatase 90 U/L (45-117); Anion Gap 11 (5-15); BUN 67 mg/dL (7-18); Calcium,Total 7.3 mg/dL (8.5-10.1); Chloride 93 mmol/L (98-107); Creatinine, Serum 6.67 mg/dL (0.55-1.02); EST Glomerular Filtration Rate 7 mL/min (>60); Est Glom Filt Rate - Afr Amer 8 mL/min (>60); Estimated Creatinine Clearance 10.28 ml/min; Globulin 3.9 g/dL (2.2-4.2); Glucose 195 mg/dL (74-106); Magnesium 2.7 mg/dL (1.6-2.6); Potassium 4.8 mmol/L (3.5-5.1); Protein, Total 6.8 g/dL (6.4-8.2); Sodium Level 134 mmol/L (136-145)
[2021-10-21] MEDS: Ipratropium/Albuterol Sulfate 3 ML AMPUL.NEB INHALATION ×3 (07:42→19:47)
[2021-10-21 07:47] LABS: Phosphorus 5.7 mg/dL (2.5-4.9)
--- NOTE | 2021-10-21 08:28 | PN.HOSP_ITS ---
Subjective Subjective Follow-up on acute hypoxic respiratory failure/acute COVID-19 pneumonia/fluid overload from missed dialysis: Patient was seen and examined. She is on room air. Discussed with nephrology, patient would not have any more dialysis in the hospital. Discussed with patient, and she is reluctant to be discharged. She wants to be discharged to a correction facility for subacute rehab as she feels very weak and she does not have enough support at home. Objective Data Objective Data Vital Signs: Vital Signs Temp Pulse Resp BP Pulse Ox 98.6 F 80 18 129/59 H 100 10/21/21 04:00 10/21/21 07:42 10/21/21 07:42 10/21/21 04:00 10/21/21 07:42 Oxygen Flow Rate (L/min) 2 Oxygen Delivery Method Room Air Weight: 72.575 kg Body Mass Index (BMI) 2.9 Intake & Output: Intake and Output for Last 24 Hours 10/19/21 10/20/21 10/21/21 23:59 23:59 23:59 Intake Total 60 / 60 830 / 830 Output Total 0 / 0 Balance 60 / 60 830 / 830 Lab / Micro Data Result Diagrams: 10/20/21 07:53 10/21/21 06:40 Labs: Laboratory Results - last 24 hr 10/20/21 07:53: WBC 5.1, RBC 4.22, Hgb 12.0, Hct 37.6, MCV 89.1, MCH 28.4, MCHC 31.9 L, RDW Std Deviation 50.6 H, RDW Coeff of Abdoul 15.3 H, Plt Count 181, MPV 11.4, Immature Gran % (Auto) 0.200, Neut % (Auto) 91.7 H, Lymph % (Auto) 6.7 L, [place] % (Auto) 1.4, Eos % (Auto) 0.0, Baso % (Auto) 0.0, Absolute Neuts (auto) 4.7, Absolute Lymphs (auto) 0.34 L, Nucleated RBC % 0, Differential Comment SCANNED 10/20/21 07:53: Sodium 131 L, Potassium 5.5 H, Chloride 94 L, Carbon Dioxide 25.0, Anion Gap 12, BUN 40 H, Creatinine 4.78 H, Estim Creat Clear Calc 14.34, Est GFR (MDRD) Af Amer 12 L, Est GFR (MDRD) Non-Af 10 L, BUN/Creatinine Ratio 8.4 L, Glucose 327 H, Calcium 6.8 L, Magnesium 2.5, Total Bilirubin 0.60, AST 24, ALT 31, Alkaline Phosphatase 102, Total Protein 6.8, Albumin 2.8 L, Globulin 4.0, Albumin/Globulin Ratio 0.7 L 10/20/21 07:53: Phosphorus 5.9 H 10/20/21 11:45: POC Glucose 484 H* 10/20/21 16:08: POC Glucose > 500 H* 10/20/21 17:42: POC Glucose 498 H* 10/20/21 18:19: POC Glucose 449 H 10/20/21 22:34: POC Glucose 287 H 10/21/21 06:22: POC Glucose 191 H 10/21/21 06:40: Sodium 134 L, Potassium 4.8, Chloride 93 L, Carbon Dioxide 30.0, Anion Gap 11, BUN 67 H, Creatinine 6.67 H, Estim Creat Clear Calc 10.28, Est GFR (MDRD) Af Amer 8 L, Est GFR (MDRD) Non-Af 7 L, BUN/Creatinine Ratio 10.0, Glucose 195 H, Calcium 7.3 L, Magnesium 2.7 H, Total Bilirubin 0.60, AST 18, ALT 26, Alkaline Phosphatase 90, Total Protein 6.8, Albumin 2.9 L, Globulin 3.9, Albumin/Globulin Ratio 0.7 L 10/21/21 06:40: Phosphorus 5.7 H Physical Exam Narrative Physical exam: General: Alert, Oriented x3, Cooperative, No apparent distress, Well developed HEENT: Atraumatic Oral: Moist Mucosa Neck: Supple Lungs: Diminished to auscultation Cardiovascular: HS I+II, regular, no murmurs Abdomen: Bowel Sounds Present, Soft, Non Tender Extremities: No edema Assessment & Plan Assessment/Plan (1) Missed dialysis: (2) Hyperkalemia: (3) COVID-19: (4) Acute hypoxemic respiratory failure: PLAN: 1. Acute hypoxic respiratory failure due to covid 19 pneumonia and fluid overload from missed dialysis, resolved Patient is on room air Continue on dexamethasone, breathing treatments 2. Fluid overload due to missed dialysis from ESRD, resolved, Patient will continue on her usual maintenance dialysis 3. Hyperkalemia/hypokalemia/hypocalcemia, resolved, Secondary to missed dialysis, Will continue to monitor 4. Type 2 DM, blood sugars remain uncontrolled, will increase Lantus to 15 units twice daily Continue with insulin sliding scale with blood glucose checks 5. Rest of chronic medical conditions including hyperlipidemia, hypothyroidism remained stable 6. DVT prophylaxis - Lovenox SC Charges/Coding Visit Charges Inpatient E&M: 74019 Subs Hosp L2
[2021-10-21] MEDS: Enoxaparin 30 MG/0.3 ML Syringe SC ×2 (08:55→20:40)
[2021-10-21] MEDS: guaiFENesin 600 MG Tablet PO ×2 (08:56→20:40)
[2021-10-21] MEDS: dexAMETHasone 4 MG/ML Vial 6 MG IV (08:56)
[2021-10-21] MEDS: SEVELAMER CARBONATE 800 MG TABLET PO ×3 (08:56→20:41)
[2021-10-21] MEDS: Aspirin E.C. 81 MG Tablet PO (08:56)
[2021-10-21] MEDS: Levothyroxine 112 MCG Tablet PO (08:56)
[2021-10-21] MEDS: 0.9% Saline Lock 10 ML Syringe IV ×2 (08:57→09:08)
[2021-10-21] MEDS: Acetaminophen 325 MG Tablet 650 MG PO (09:08)
[2021-10-21] MEDS: Ondansetron 4 MG/2 ML Vial IV (09:08)
--- NOTE | 2021-10-21 09:54 | CASEMGMT ---
Per Jacinto at [facility], pt has been set up with chair time at [facility] but did not show up on Thursday and per notes, has missed HD all week. Per notes, pt did not feel making the drive to [place] for dialysis on thursday. Pt is currently on room air and per nephro, can d/c to go to OP HD tomorrow in [place]. CM to follow. Leeann DAHL CM
--- NOTE | 2021-10-21 11:18 | PN.RENAL_ITS ---
Subjective Subjective Resting in bed, no overnight events. Patient complains of feeling tired. States she is having some diarrhea. Objective Data Objective Data Vital Signs: Vital Signs Temp Pulse Resp BP Pulse Ox 99.0 F 86 18 120/49 L 94 10/21/21 08:48 10/21/21 10:47 10/21/21 10:47 10/21/21 08:48 10/21/21 08:48 Oxygen Flow Rate (L/min) 2 Oxygen Delivery Method Room Air Weight: 72.575 kg Body Mass Index (BMI) 2.9 Intake & Output: Intake and Output for Last 24 Hours 10/19/21 10/20/21 10/21/21 23:59 23:59 23:59 Intake Total 60 / 60 830 / 830 Output Total 0 / 0 Balance 60 / 60 830 / 830 Lab / Micro Data Result Diagrams: 10/20/21 07:53 10/21/21 06:40 Labs: Laboratory Results - last 24 hr 10/20/21 11:45: POC Glucose 484 H* 10/20/21 16:08: POC Glucose > 500 H* 10/20/21 17:42: POC Glucose 498 H* 10/20/21 18:19: POC Glucose 449 H 10/20/21 22:34: POC Glucose 287 H 10/21/21 06:22: POC Glucose 191 H 10/21/21 06:40: Sodium 134 L, Potassium 4.8, Chloride 93 L, Carbon Dioxide 30.0, Anion Gap 11, BUN 67 H, Creatinine 6.67 H, Estim Creat Clear Calc 10.28, Est GFR (MDRD) Af Amer 8 L, Est GFR (MDRD) Non-Af 7 L, BUN/Creatinine Ratio 10.0, Glucose 195 H, Calcium 7.3 L, Magnesium 2.7 H, Total Bilirubin 0.60, AST 18, ALT 26, Alkaline Phosphatase 90, Total Protein 6.8, Albumin 2.9 L, Globulin 3.9, Albumin/Globulin Ratio 0.7 L 10/21/21 06:40: Phosphorus 5.7 H Physical Exam Narrative General: Alert and oriented x3, in no apparent distress. HEENT: Normocephalic, atraumatic Heart: Normal S1, S2. No rubs or murmurs. Lungs: diminished breath sounds, harsh non-productive cough Abdomen: Normal bowel sounds, soft, nontender Extremity: No clubbing, cyanosis or edema. Neurologic: No focal neurologic deficits. Skin: Warm and dry, no rash. AVF+ thrill and bruit Assessment & Plan Assessment/Plan (1) End-stage renal disease on hemodialysis: PLAN: - Prior to yesterday, the patient had not been dialyzed since 10/12/[address] she did not drive to [facility] dialysis unit. -The patient was dialyzed 10/19. There is no signs of volume overload or acidosis today. There is no need for dialysis today. -Next dialysis 10/22. - history of intradialytic hypotension, continue midodrine at start of HD. She can also have midodrine during HD if needed. - Hgb at goal, does not need vanessa at this time. Will follow hgb trends. -Patient may need to get social service help to see if the patient has a way to get to the [facility] dialysis unit until she tested negative for the infection. - Once discharged from hospital patient is to dialyze at isolation unit until October 31, she can return to [facility] for HD on 10/31. Discussed this with patient. (2) Hyperkalemia: PLAN: - The patient presented with potassium level of 6.3 mmol/L. Hyperkalemia was likely due to missing dialysis. -The patient's potassium level is down to 4.8 mmol/L today. -No need for dialysis today. (3) Hyperphosphatemia: PLAN: - Phosphorus level was 7.9 mg/dL on presentation yesterday. Hypophosphatemia is likely due to missing dialysis as well. -Continue the patient on sevelamer with meals. Phos now 5.7 (4) COVID-19: PLAN: - The patient is on dexamethasone. She was also requiring nasal cannula oxygen. Now on room air. -Treatment as per hospital medicine service.
[2021-10-21 11:35] LABS: Bedside Glucose 289 mg/dL (70-110)
--- NOTE | 2021-10-21 12:00 | CASEMGMT ---
NABILA LEDEZMA to room to meet with patient for initial transition planning/care coordination assessment. NABILA LEDEZMA introduced self and role at [facility]. Patient voices understanding and consents to assessment at this time. Patient is alert and oriented, sitting up on bed in no apparent distress and answers all questions appropriately. Care providers, pharmacy, and demographics verified/updated at this time. PCP: Abraham Montague Specialists: Valery- nephrology, Carlota- cardiology, - endocrinology Preferred Pharmacy: [facility] Insurance: Medicare A/B & [employer] Prescription Benefit: yes Living Will/HPOA: Patient has a living will and HPOA is daughter Stephany Meléndez. These forms are on file at [facility]. LNOK: Daughter, Stephany Meléndez Living Arrangements: Patient lives with daughter and daughter's fiance in three story house with 3 steps to enter the home with a handrail present. Patient states independent with ADLs prior to hospitalization. Smoking/ETOH: Never smoker, rare ETOH use Transportation: Patient's daughter provides transportation. Patient denies transportation concerns. DME/HHC/SNF: Patient typically ambulates with rollator. Also available in home: shower chair, hand-held shower, grab bars, glucometer and testing supplies and CPAP (no oxygen bled-in) supplied through [employer]. Previous HHC through [facility]. Denies previous SNF stays. [facility], [facility]. Patient has no concerns with going home at time of discharge. Friend is available to bring groceries/medications as needed during quarantine. Patient's daughter has tested for COVID but is awaiting results at this time. NABILA LEDEZMA spoke with patient regarding HHC. Patient declines HHC at this time, stating she knows how to do all of the exercises on her own. CM to follow for any discharge planning/needs. Patient voices no concerns/needs at this time. Advised patient to ask for CM if any questions/concerns/needs arise. Voices understanding. Plan: home
[2021-10-21] MEDS: ARIPiprazole 2 MG Tablet PO (13:42)
[2021-10-21 13:56] LABS: Bedside Glucose 303 mg/dL (70-110)
--- NOTE | 2021-10-21 15:59 | CASEMGMT ---
Physician spoke with JOVANNA and indicated patient wants to go to a custodial. JOVANNA met with patient, introduced self and role at [facility]. Patient confirmed she wants to go to a custodial. She would prefer [facility]. JOVANNA asked when patient was originally tested and patient said on the at Dr Montague's office. JOVANNA told her SW will try and get that test as some of the nursing homes will take patients when they are 10 days out from their positive test. JOVANNA will work on placement. JOVANNA called Dr Montague's office and left a message for medical records requesting a return call. JOVANNA also returned patient's daughter's, phone call. JOVANNA spoke with patient's daughter Tia and she wanted to make sure SW knew that patient wants to go to a custodial. JOVANNA let her know JOVANNA spoke with her mom and JOVANNA is working on it. She thanked JOVANNA. Moraima Cancino [employer]
[2021-10-21 16:26] LABS: Bedside Glucose 279 mg/dL (70-110)
[2021-10-21] MEDS: LORazepam 0.5 MG Tablet PO (17:47)
[2021-10-21 21:05] LABS: Bedside Glucose 393 mg/dL (70-110)
[2021-10-21] MEDS: Atorvastatin Calcium 80 MG Tablet PO (21:10)
[2021-10-22] VITALS (13 sets, daily range): BP systolic 124–160; BP diastolic 51–76; PULSE 76–94; RESP 16–22; TEMP 36.6–37; O2SAT 93–98
[2021-10-22] MEDS: Insulin Lispro 100 UNIT/ML INSULN.PEN SC ×4 (06:38→20:00)
--- NOTE | 2021-10-22 06:45 | NURSING ---
pt up to bedside commode. pt voided and passed gas. pt denies any dizziness. Pt was shaky
[2021-10-22 06:51] LABS: Bedside Glucose 435 mg/dL (70-110)
[2021-10-22] MEDS: Ipratropium/Albuterol Sulfate 3 ML AMPUL.NEB INHALATION ×4 (07:00→16:45)
[2021-10-22 07:20] LABS: Phosphorus 6.9 mg/dL (2.5-4.9)
[2021-10-22 07:24] LABS: ALB/GLOB Ratio 0.8 RATIO (0.9-2.4); AST(SGOT) 25 U/L (15-37); Alanine Aminotransfer ALT/SGPT 25 U/L (13-56); Albumin, Serum 2.8 g/dL (3.2-5.0); Alkaline Phosphatase 79 U/L (45-117); Anion Gap 13 (5-15); BUN 96 mg/dL (7-18); BUN/Creat Ratio 11.9 RATIO (10-20); Calcium,Total 6.7 mg/dL (8.5-10.1); Chloride 91 mmol/L (98-107); Creatinine, Serum 8.05 mg/dL (0.55-1.02); EST Glomerular Filtration Rate 5 mL/min (>60); Est Glom Filt Rate - Afr Amer 7 mL/min (>60); Estimated Creatinine Clearance 8.51 ml/min; Globulin 3.7 g/dL (2.2-4.2); Glucose 446 mg/dL (74-106); Magnesium 2.7 mg/dL (1.6-2.6); Potassium 5.6 mmol/L (3.5-5.1); Protein, Total 6.5 g/dL (6.4-8.2); Sodium Level 128 mmol/L (136-145)
[2021-10-22] MEDS: Levothyroxine 112 MCG Tablet PO (08:23)
[2021-10-22] MEDS: Aspirin E.C. 81 MG Tablet PO (08:23)
[2021-10-22] MEDS: Ondansetron 4 MG/2 ML Vial IV ×2 (08:24→19:51)
[2021-10-22] MEDS: dexAMETHasone 4 MG/ML Vial 6 MG IV (08:24)
[2021-10-22] MEDS: guaiFENesin 600 MG Tablet PO ×2 (08:24→19:55)
[2021-10-22] MEDS: SEVELAMER CARBONATE 800 MG TABLET PO ×3 (08:24→16:45)
[2021-10-22] MEDS: 0.9% Saline Lock 10 ML Syringe IV ×2 (08:24→19:51)
[2021-10-22] MEDS: ARIPiprazole 2 MG Tablet PO (08:24)
[2021-10-22] MEDS: Acetaminophen 325 MG Tablet 650 MG PO (08:25)
--- NOTE | 2021-10-22 09:19 | PN.HOSP_ITS ---
Subjective Subjective Follow-up on acute hypoxic respiratory failure/acute COVID-19 pneumonia/fluid overload from missed dialysis: Patient was seen and examined. She stated that she feels much improved. She received a dose of Ativan 0.5 mg p.o. later in the evening for anxiety. She stated that she slept well. She denied any chest pain or dizziness. Discussed with nephrology, patient will be having dialysis today. Waiting on discharge planning to senior care facility. Objective Data Objective Data Vital Signs: Vital Signs Temp Pulse Resp BP Pulse Ox 98.6 F 80 18 124/51 H 98 10/22/21 08:22 10/22/21 08:22 10/22/21 08:22 10/22/21 08:22 10/22/21 08:29 Oxygen Flow Rate (L/min) 2 Oxygen Delivery Method Room Air Weight: 72.575 kg Body Mass Index (BMI) 2.9 Intake & Output: Intake and Output for Last 24 Hours 10/20/21 10/21/21 10/22/21 23:59 23:59 23:59 Intake Total 830 / 830 700 / 1100 460 / 460 Output Total 0 / 0 Balance 830 / 830 700 / 1100 460 / 460 Lab / Micro Data Result Diagrams: 10/20/21 07:53 10/22/21 06:26 Labs: Laboratory Results - last 24 hr 10/21/21 11:25: POC Glucose 289 H 10/21/21 13:49: POC Glucose 303 H 10/21/21 16:06: POC Glucose 279 H 10/21/21 20:38: POC Glucose 393 H 10/22/21 06:26: Sodium 128 L, Potassium 5.6 H, Chloride 91 L, Carbon Dioxide 24.0, Anion Gap 13, BUN 96 H, Creatinine 8.05 H*, Estim Creat Clear Calc 8.51, Est GFR (MDRD) Af Amer 7 L, Est GFR (MDRD) Non-Af 5 L, BUN/Creatinine Ratio 11.9, Glucose 446 H, Calcium 6.7 L, Magnesium 2.7 H, Total Bilirubin 0.70, AST 25, ALT 25, Alkaline Phosphatase 79, Total Protein 6.5, Albumin 2.8 L, Globulin 3.7, Albumin/Globulin Ratio 0.8 L 10/22/21 06:26: Phosphorus 6.9 H 10/22/21 06:36: POC Glucose 435 H Physical Exam Narrative Physical exam: General: Alert, Oriented x3, Cooperative, No apparent distress, Well developed HEENT: Atraumatic Oral: Moist Mucosa Neck: Supple Lungs: Diminished to auscultation Cardiovascular: HS I+II, regular, no murmurs Abdomen: Bowel Sounds Present, Soft, Non Tender Extremities: No edema Assessment & Plan Assessment/Plan (1) Missed dialysis: (2) Hyperkalemia: (3) COVID-19: (4) Acute hypoxemic respiratory failure: PLAN: 1. Acute hypoxic respiratory failure due to covid 19 pneumonia and fluid overload from missed dialysis, resolved Patient is on room air Continue on dexamethasone, breathing treatments 2. Fluid overload due to missed dialysis from ESRD, resolved, Patient will continue on her usual maintenance dialysis 3. Hyperkalemia/hypokalemia/hypocalcemia, elevated Patient will be having dialysis today; expect electrolyte imbalances to resolve Will continue to monitor 4. Type 2 DM, blood sugars remain uncontrolled, continue on Lantus 20 units twice daily Continue with insulin sliding scale with blood glucose checks 5. Rest of chronic medical conditions including hyperlipidemia, hypothyroidism remained stable 6. DVT prophylaxis - Lovenox SC Charges/Coding Visit Charges Inpatient E&M: 67167 Subs Hosp L2
--- NOTE | 2021-10-22 09:22 | PN.RENAL_ITS ---
Subjective Subjective Sitting up in bed, denies any shortness of breath, nausea. Reports feeling better today. Objective Data Objective Data Vital Signs: Vital Signs Temp Pulse Resp BP Pulse Ox 98.6 F 80 18 124/51 H 98 10/22/21 08:22 10/22/21 08:22 10/22/21 08:22 10/22/21 08:22 10/22/21 08:29 Oxygen Flow Rate (L/min) 2 Oxygen Delivery Method Room Air Weight: 72.575 kg Body Mass Index (BMI) 2.9 Intake & Output: Intake and Output for Last 24 Hours 10/20/21 10/21/21 10/22/21 23:59 23:59 23:59 Intake Total 830 / 830 700 / 1100 460 / 460 Output Total 0 / 0 Balance 830 / 830 700 / 1100 460 / 460 Lab / Micro Data Result Diagrams: 10/20/21 07:53 10/22/21 06:26 Labs: Laboratory Results - last 24 hr 10/21/21 11:25: POC Glucose 289 H 10/21/21 13:49: POC Glucose 303 H 10/21/21 16:06: POC Glucose 279 H 10/21/21 20:38: POC Glucose 393 H 10/22/21 06:26: Sodium 128 L, Potassium 5.6 H, Chloride 91 L, Carbon Dioxide 24.0, Anion Gap 13, BUN 96 H, Creatinine 8.05 H*, Estim Creat Clear Calc 8.51, Est GFR (MDRD) Af Amer 7 L, Est GFR (MDRD) Non-Af 5 L, BUN/Creatinine Ratio 11.9, Glucose 446 H, Calcium 6.7 L, Magnesium 2.7 H, Total Bilirubin 0.70, AST 25, ALT 25, Alkaline Phosphatase 79, Total Protein 6.5, Albumin 2.8 L, Globulin 3.7, Albumin/Globulin Ratio 0.8 L 10/22/21 06:26: Phosphorus 6.9 H 10/22/21 06:36: POC Glucose 435 H Physical Exam Narrative General: Alert and oriented x3, in no apparent distress. Heart: Normal S1, S2. No rubs or murmurs. Lungs: diminished breath sounds, harsh non-productive cough Abdomen: Normal bowel sounds, soft, nontender Extremity: No pitting edema. Neurologic: No focal neurologic deficits. Skin: Warm and dry, no rash. AVF+ thrill and bruit Assessment & Plan Assessment/Plan (1) End-stage renal disease on hemodialysis: PLAN: - The patient had not been dialyzed since 10/12/[address] did not drive to [facility] dialysis unit. -Patient to dialyze today over 3.5 hours on 2K bath with UF as patient/blood pressure tolerates. Outpatient EDW 69 kg. EDW may be lower due to recent infection, hospitalization, etc. Will adjust EDW. - history of intradialytic hypotension, continue midodrine at start of HD. She can also have midodrine during HD if needed. - Hgb at goal, does not need vanessa at this time. Will follow hgb trends. -Patient may need to get social service help to see if the patient has a way to get to the [facility] dialysis unit until she tested negative for the infection. -If discharged from hospital to home, patient is to dialyze at isolation HD unit until October 31, she can return to [facility] for HD on 10/31. Discussed this with patient. - Discharge plans in progress either at home or ECF. (2) Hyperkalemia: PLAN: - The patient presented with potassium level of 6.3 mmol/L. H yperkalemia was likely due to missing dialysis. -The patient's potassium level is 5.6 today, she will dialyze on 2K bath. Continue renal diet. (3) Hyperphosphatemia: PLAN: - Phosphorus level was 7.9 mg/dL on presentation yesterday. Hypophosphatemia is likely due to missing dialysis as well. -Continue the patient on sevelamer with meals. Phos now 5.7- 6.9 today. Continue renal diet. Nepro added. (4) COVID-19: PLAN: - The patient is on dexamethasone. She was also requiring nasal cannula oxygen. Now on room air. -Treatment as per hospital medicine service.
--- NOTE | 2021-10-22 09:31 | CASEMGMT ---
JOVANNA called Dr Montague's office again and left another voice mail requesting a return call regarding obtaining a copy of patient's COVID test from the 10th. Await return call. Moraima TORRES
--- NOTE | 2021-10-22 10:21 | CASEMGMT ---
Still awaiting COVID test results from Dr Montague's office. JOVANNA went ahead and faxed the referral to [facility]. JOVANNA also called [facility] about referral. Moraima Cancino MSW MELISSA
[2021-10-22] MEDS: VORTIOXETINE HYDROBROMIDE 20 MG TABLET PO (10:59)
[2021-10-22] MEDS: Nepro Liquid 120 ML LIQUID PO ×3 (10:59→16:45)
[2021-10-22 11:25] LABS: Bedside Glucose 414 mg/dL (70-110)
--- NOTE | 2021-10-22 11:30 | CASEMGMT ---
JOVANNA called Dr Montague's office and SW was told to talk with nurse and she can fax the test results. JOVANNA spoke with a nurse and she faxed the COVID test results. Unfortunately patient did not test positive on the . She tested positive on the Oct. Patient wants [facility], but she would not be able to go until Thursday10-28-21. Patient is medically ready. [facility] takes COVID patients, but not patients on dialysis. JOVANNA called [facility] and they do not take patients on dialysis. Moraima Cancino ROLLED GOLD PLATER MELISSA
[2021-10-22 16:50] LABS: Bedside Glucose 249 mg/dL (70-110)
--- NOTE | 2021-10-22 18:13 | DIALYSIS ---
Hemodialysis completed 3 hrs 30 min on a 2 K bath. Fluid removed was 3 liters. BP stable throughout tx. Next treatment 10/24/21. See dialysis flow sheet in chart for further details.
[2021-10-22] MEDS: Atorvastatin Calcium 80 MG Tablet PO (19:55)
[2021-10-22] MEDS: hydrOXYzine PAM 25 MG Capsule PO (19:55)
[2021-10-22 20:36] LABS: Bedside Glucose 436 mg/dL (70-110)
[2021-10-22] MEDS: proMETHazine 25 MG/ML Syringe 6.25 MG IM (22:22)
--- NOTE | 2021-10-22 23:15 | NURSING ---
pt c/o that she feels terrible. Pt said she wants to leave and go to the emergency room. Informed pt i gave her zofran and now phenergan. It is going to take some time to work because she is a dialysis pt. Attempted to her her Tylenol for mild aches but she refused.I ask pt what she wants me to do for her. Pt said i am sick. then ignored me.
--- NOTE | 2021-10-22 23:31 | NURSING ---
Pt on camera and pt was sticking her fingers down her throat to vomit. Charge nurse Catalina and i went into pt room. We told her we saw her put her fingers down her throat. Pt said she wanted to get it out. Pt was instructed to allow the medicine to work. Asked pt what she wanted us to do to help her but to stop making herself vomit. Pt didnt know
--- NOTE | 2021-10-22 23:33 | NURSING ---
Pt seen on camera putting her fingers down her throat to try to make herself throw up although has been c/o persistent vomiting without relief in spite of medications given. This RN and primary RN Clary R. in to speak with patient. We informed pt that she was seen putting her fingers down her throat and trying to make herself throw up. Pt stated that she was trying to get everything out but then stated that she didn't want to throw up anymore. This RN told pt to stop putting her fingers down her throat and asked what her goal was and how we could help her and pt did not have answer. Primary RN Clary offered more anti-emetic when it was available. Pt denies any further needs at this time.
[2021-10-23] VITALS (60 sets, daily range): BP systolic 41–218; BP diastolic 29–88; PULSE 84–154; RESP 12–50; TEMP 36.6–41.2; O2SAT 69–100
--- NOTE | 2021-10-23 00:01 | NURSING ---
PT CURRENTLY HAS NO MORE VOMITING EPISODES SINCE SHE WAS TOLD TO STOP PUTTING FINGERS DOWN HER THROAT
[2021-10-23] MEDS: Ondansetron 4 MG/2 ML Vial IV (02:06)
--- NOTE | 2021-10-23 02:14 | NURSING ---
Called into pt room. c/o that her sugar is low. Pt said i can tell. Accucheck 461. Zofran given for nausea.
[2021-10-23] MEDS: Insulin Lispro 100 UNIT/ML INSULN.PEN 8 UNIT SC (02:22)
[2021-10-23 02:25] LABS: Bedside Glucose 461 mg/dL (70-110)
--- NOTE | 2021-10-23 04:16 | NURSING ---
PT DROWSY C/O ABD PAIN. OFFERED TYLENOL BUT REFUSED. EXPLAINED I DONT WANT TO GIVE HER ANYTHING THAT WILL SEDATE HER MORE BECAUSE THE PHENERGAN WAS GIVEN AND SHE IS DROWSY
--- NOTE | 2021-10-23 06:15 | NURSING ---
PT SLEEPING IN CHAIR. SPOT PULSE OX CHECK 78% ON RA. 02 PUT ON AT 2LNC. PO 84%. 02 INCREASE TO6LNC. PT GIVEN THE IS ONLY ABLE TO GET UP TO SM AMOUNT.
[2021-10-23] MEDS: Insulin Lispro 100 UNIT/ML INSULN.PEN SC (06:17)
[2021-10-23 06:26] LABS: Bedside Glucose 324 mg/dL (70-110)
--- NOTE | 2021-10-23 06:34 | RAD_ITS ---
STUDY: X-RAY CHEST REASON FOR EXAM: Female, 60 years old patient with fluid overload. TECHNIQUE: Single AP portable view of the chest. COMPARISON: 10/19/2021. FINDINGS: Cardiac monitoring leads are present. The lungs are expanded. There is heterogeneous bilateral basilar airspace disease and atelectasis. There is no demonstrated pleural abnormality. There is mild cardiac enlargement. Normal mediastinum and donato. Normal visualized pulmonary arteries. There is atherosclerotic tortuosity of the aortic arch and descending thoracic aorta. There is demineralization of the osseous structures. Normal visualized ribs, clavicles, and shoulders. There is no demonstrated abnormality of the visualized soft tissue structures of the upper abdomen. RAD/Chest 1 View (Portable) IMPRESSION: 1. Bilateral basilar airspace disease and atelectasis appears greater than was apparent on previous study. 2. Cardiomegaly and pulmonary vascular congestion. Electronically Signed: Rufina Dillon MD at 8:01 EST , Service support ,
[2021-10-23] MEDS: Furosemide 100 MG/10 ML Vial 80 MG IV (06:49)
[2021-10-23] MEDS: 0.9% Saline Lock 10 ML Syringe IV ×2 (06:50→20:28)
[2021-10-23 06:54] LABS: Phosphorus 2.4 mg/dL (2.5-4.9)
[2021-10-23 07:05] LABS: ALB/GLOB Ratio 0.7 RATIO (0.9-2.4); AST(SGOT) 24 U/L (15-37); Alanine Aminotransfer ALT/SGPT 30 U/L (13-56); Albumin, Serum 3.1 g/dL (3.2-5.0); Alkaline Phosphatase 91 U/L (45-117); Anion Gap 11 (5-15); BUN 47 mg/dL (7-18); BUN/Creat Ratio 9.6 RATIO (10-20); Calcium,Total 7.2 mg/dL (8.5-10.1); Chloride 93 mmol/L (98-107); Creatinine, Serum 4.92 mg/dL (0.55-1.02); EST Glomerular Filtration Rate 10 mL/min (>60); Est Glom Filt Rate - Afr Amer 12 mL/min (>60); Estimated Creatinine Clearance 9.18 ml/min; Globulin 4.4 g/dL (2.2-4.2); Glucose 334 mg/dL (74-106); Magnesium 2.5 mg/dL (1.6-2.6); Potassium 3.7 mmol/L (3.5-5.1); Protein, Total 7.5 g/dL (6.4-8.2); Sodium Level 132 mmol/L (136-145)
[2021-10-23] MEDS: Ipratropium/Albuterol Sulfate 3 ML AMPUL.NEB INHALATION ×2 (07:28→11:25)
--- NOTE | 2021-10-23 09:52 | NURSING ---
0945 attempted with general house worker to get pt back to bed but pt went unresponsive despite sternal rub and vocal stimuli. pt lifted back to bed via blanket and sprayer operator called. pt incont of urine. drs in at bedside. bp 69/41. order for rectal tylenol ordered. cps in and abg obtained. 2nd line started. pt opens eyes to name being called but remains drowsy. 1006 cps in and placed pt on bipap. rr 50. pharm called for iv atb and unisyn dose
[2021-10-23 09:55] LABS: Bedside Glucose 299 mg/dL (70-110)
[2021-10-23] MEDS: 0.9% Normal Saline 1,000 ML 999 ML IV (10:00)
--- NOTE | 2021-10-23 10:01 | CASEMGMT ---
Rapid response was called. JOVANNA was present and asked to call patient's daughter. SW called patient's daughter Yancy and let her know that her mom went unresponsive and is having breathing issues. SW let her know that everyone is in working with her right now and SW will keep her updated. SW went back to the room and patient was considered somewhat stable. JOVANNA called Tia back and let her know that patient is stable and as soon as the doctor assistant professor of criminal justice is available they will call and update her on what happened. JOVANNA told her at this time patient is not going to ICU but this could change. Someone will be in touch with her. Yancy thanked JOVANNA for the update. Moraima Cancino MARKETING ANALYTICS MANAGER MELISSA
[2021-10-23 10:05] LABS: Allen Test Positive; Base Excess 2 mmol/L (-2 to +2); Bicarbonate 24.1 mmol/L (22-26); Blood Gas Specimen Type ART; FI02 93; O2 Delivery Device Vapotherm; PO2 53 mmHG (75-100); SITE R Radial; SO2 92 % (95-99); Total Carbon Dioxide 25 mmol/L; pH 7.56 (7.35-7.45)
[2021-10-23] MEDS: dexAMETHasone 4 MG/ML Vial 6 MG IV (10:13)
--- NOTE | 2021-10-23 10:13 | PCM.PN.REN ---
Subjective Subjective Sitting in chair, requiring Airvo. Alert to self. Objective Data Objective Data Vital Signs: Vital Signs Temp Pulse Resp BP Pulse Ox 102.8 F H 123 H 32 H 76/36 L 96 10/23/21 09:32 10/23/21 09:32 10/23/21 09:32 10/23/21 09:32 10/23/21 09:32 Oxygen Flow Rate (L/min) 15 Oxygen Delivery Method Airvo Weight: 72.8 kg Body Mass Index (BMI) 2.9 Intake & Output: Intake and Output for Last 24 Hours 10/21/21 10/22/21 10/23/21 23:59 23:59 23:59 Intake Total 700 / 1100 1320 / 1320 30 / 30 Output Total 300 / 300 Balance 700 / 1100 1020 / 1020 30 / 30 Lab / Micro Data Result Diagrams: 10/20/21 07:53 10/23/21 05:20 Labs: Laboratory Results - last 24 hr 10/20/21 07:53: Ionized Calcium 3.7 L 10/22/21 10:58: POC Glucose 414 H 10/22/21 16:43: POC Glucose 249 H 10/22/21 19:59: POC Glucose 436 H 10/23/21 02:01: POC Glucose 461 H* 10/23/21 05:20: Sodium 132 L, Potassium 3.7, Chloride 93 L, Carbon Dioxide 28.0, Anion Gap 11, BUN 47 H, Creatinine 4.92 H, Estim Creat Clear Calc 9.18, Est GFR (MDRD) Af Amer 12 L, Est GFR (MDRD) Non-Af 10 L, BUN/Creatinine Ratio 9.6 L, Glucose 334 H, Calcium 7.2 L, Magnesium 2.5, Total Bilirubin 0.60, AST 24, ALT 30, Alkaline Phosphatase 91, Total Protein 7.5, Albumin 3.1 L, Globulin 4.4 H, Albumin/Globulin Ratio 0.7 L 10/23/21 05:20: Phosphorus 2.4 L 10/23/21 06:13: POC Glucose 324 H 10/23/21 09:45: POC Glucose 299 H ABG Data ABG results: ABG 10/23/21 10:00 Specimen Type ART Sample Site R Radial pH 7.56 H Bicarbonate Actual 24.1 Total CO2 25 Base Excess 2 O2 Saturation 92 L O2 % 93 ABG pCO2 27.0 L ABG pO2 53 L Jean-Pierre Test Positive O2 Delivery Device Vapotherm Clinical Comments 60lpm 93% Radiography Diagnostic Testing: Radiology Impression Chest X-Ray 10/23/21 06:34 IMPRESSION: 1. Bilateral basilar airspace disease and atelectasis appears greater than was apparent on previous study. 2. Cardiomegaly and pulmonary vascular congestion. Electronically Signed: Rufina Dillon MD at 8:01 EST , Service support , Physical Exam Narrative General: Alert and oriented to self Heart: Normal S1, S2. No rubs or murmurs. Lungs: rhonchi, harsh cough. On Airvo Extremity: No pitting edema. Skin: Warm and dry, no rash. AVF+ thrill and bruit left arm Assessment & Plan Assessment/Plan (1) End-stage renal disease on hemodialysis: PLAN: - The patient had not been dialyzed since 10/12/2021 because she did not drive to [facility] dialysis unit. -Patient tolerated HD 10/22 with 3L UF. Outpatient EDW 69 kg. EDW may be lower due to recent infection, hospitalization, etc. Will adjust EDW. - history of intradialytic hypotension and gets midodrine pre-HD - Hgb at goal, does not need vanessa at this time. Will follow hgb trends. -Patient may need to get social service help to see if the patient has a way to get to the [facility] dialysis unit until she tested negative for the infection. -Once discharged from hospital, patient is to dialyze at isolation HD unit until October 31, she can return to [facility] for HD on 10/31. (2) Hyperkalemia: PLAN: - The patient presented with potassium level of 6.3 mmol/L. Hyperkalemia was likely due to missing dialysis. - The patient's potassium level is 3.7 today (3) Hyperphosphatemia: PLAN: - Phosphorus level was 7.9 mg/dL on admission. Hypophosphatemia is likely due to missing dialysis as well. - On sevelamer with meals. Phos --> 5.7- 6.9, today 2.4, will hold renvela. Continue renal diet. Nepro added. (4) COVID-19: PLAN: - The patient is on dexamethasone. She was requiring nasal canula and then room air. -Treatment as per hospital medicine service. - today patient has become less responsive, hypotensive and placed on airvo. Rapid response called, ABG drawn and is now on bipap. She is getting 1L IVF. CXR reviewed. Will start midodrine tid. No acute indication for CONFIGURATION MANAGEMENT ARCHITECT at this time. Will possibly plan for HD tomorrow unless acute issue arises. Discussed with Dr. Tijerina.
[2021-10-23] MEDS: Acetaminophen 650 MG Suppository RC (10:27)
[2021-10-23 11:41] LABS: Bedside Glucose 141 mg/dL (70-110)
--- NOTE | 2021-10-23 11:50 | PCM.PN.HOSP ---
Subjective Subjective Follow-up on acute hypoxic respiratory failure/acute COVID-19 pneumonia/fluid overload from missed dialysis: Patient seen and examined. She was reportedly hypoxic overnight, up to 7L. Patient was noted on the monitor to be self inducing vomiting. There was a rapid response this morning, patient was hypotensive, febrile, slightly unresponsive. Patient was given IV fluid boluses that appeared to improve. She also was started on IV Unasyn for concern for possible aspiration pneumonitis. ABGs were suggestive of respiratory alkalosis. Blood pressures initially improved and later on remain low. Patient was transferred to ICU. She had a cardiopulmonary arrest shortly after she was in ICU. She was emergently intubated. NG tube had coffee-ground emesis. Objective Data Objective Data Vital Signs: Vital Signs Temp Pulse Resp BP Pulse Ox 101.3 F H 122 H 45 H 90/32 L 100 10/23/21 11:25 10/23/21 11:25 10/23/21 11:25 10/23/21 11:25 10/23/21 11:25 Oxygen Flow Rate (L/min) 60 Oxygen Delivery Method Bi-pap Weight: 72.8 kg Body Mass Index (BMI) 2.9 Intake & Output: Intake and Output for Last 24 Hours 10/21/21 10/22/21 10/23/21 23:59 23:59 23:59 Intake Total 700 / 1100 1320 / 1320 1030 / 1030 Output Total 300 / 300 50 / 50 Balance 700 / 1100 1020 / 1020 980 / 980 Lab / Micro Data Result Diagrams: 10/23/21 14:45 10/23/21 05:20 Labs: Laboratory Results - last 24 hr 10/20/21 07:53: Ionized Calcium 3.7 L 10/22/21 16:43: POC Glucose 249 H 10/22/21 19:59: POC Glucose 436 H 10/23/21 02:01: POC Glucose 461 H* 10/23/21 05:20: Sodium 132 L, Potassium 3.7, Chloride 93 L, Carbon Dioxide 28.0, Anion Gap 11, BUN 47 H, Creatinine 4.92 H, Estim Creat Clear Calc 9.18, Est GFR (MDRD) Af Amer 12 L, Est GFR (MDRD) Non-Af 10 L, BUN/Creatinine Ratio 9.6 L, Glucose 334 H, Calcium 7.2 L, Magnesium 2.5, Total Bilirubin 0.60, AST 24, ALT 30, Alkaline Phosphatase 91, Total Protein 7.5, Albumin 3.1 L, Globulin 4.4 H, Albumin/Globulin Ratio 0.7 L 10/23/21 05:20: Phosphorus 2.4 L 10/23/21 06:13: POC Glucose 324 H 10/23/21 09:45: POC Glucose 299 H 10/23/21 11:24: POC Glucose 141 H ABG Data ABG results: ABG 10/23/21 10:00 Specimen Type ART Sample Site R Radial pH 7.56 H Bicarbonate Actual 24.1 Total CO2 25 Base Excess 2 O2 Saturation 92 L O2 % 93 ABG pCO2 27.0 L ABG pO2 53 L Jean-Pierre Test Positive O2 Delivery Device Vapotherm Clinical Comments 60lpm 93% Radiography Diagnostic Testing: Radiology Impression Chest X-Ray 10/23/21 06:34 IMPRESSION: 1. Bilateral basilar airspace disease and atelectasis appears greater than was apparent on previous study. 2. Cardiomegaly and pulmonary vascular congestion. Electronically Signed: Rufina Dillon MD at 8:01 EST , Service support , Physical Exam Narrative Physical exam: General: Unresponsive, pale, intubated, NG tube has coffee-ground emesis HEENT: Atraumatic Oral: Moist Mucosa Neck: Supple Lungs: Diminished to auscultation Cardiovascular: HS I+II, regular, no murmurs Abdomen: Bowel Sounds Present, Soft, Non Tender Extremities: No edema Const alert, oriented x3 and no apparent distress Exam Limitations: no limitations HEENT normocephalic, head/scalp atraumatic and moist oral mucous membranes Eyes PERRL, EOMs intact bilaterally and conjunctivae normal Neck no lymphadenopathy and supple Resp normal respiratory effort and no use of accessory muscles Resp Narrative: diminished breath sounds bibasally, no wheezes or crackles. On 2L of oxygen by nasal canula. Cardio regular rate, regular rhythm, S1 normal heart sound, S2 normal heart sound and no murmurs GI normal to inspection, nondistended, normoactive bowel sounds, soft to palpation, non-tender and non-distended Extremity normal to inspection, full ROM and no clubbing, cyanosis or edema Skin no rashes or lesions noted Neuro oriented x3, CN's II-XII intact bilaterally and moves all extremities Neuro Narrative: She has no focal deficits but does have spasmic jerking, not localized to any particular area. fully cognizant & aware. Sensorium / Orientation: awake and alert Psych affect normal Mood & Affect: anxious Assessment & Plan Assessment/Plan (1) Missed dialysis: (2) Hyperkalemia: (3) COVID-19: (4) Acute hypoxemic respiratory failure: PLAN: 1. Septic shock, likely secondary to superimposed pneumonia on acute COVID-19 Reported episode of vomiting; started on Unasyn, switched to IV Zosyn Status post 2 L IV fluid boluses prior to ICU transfer Blood cultures taken; will follow-up Started on pressors, will trend 2. Acute hypoxic respiratory failure likely secondary to #1 and hypoxia Status post intubation on 10/23/21 for primary airway protection 3. Acute GI bleed, patient with coffee-ground to dark blood from OG Type and crossmatch against 2 units of packed RBC Started on IV PPI drip, will trend H&H GI consulted 4. Fluid overload due to missed dialysis from ESRD, present on admission, resolved 5. Hyperkalemia/hypokalemia/hypocalcemia/hypophosphatemia, replaced 6. Type 2 DM, will monitor on Q6h accuchecks, monitor with insulin sliding scale 7. Rest of chronic medical conditions including hyperlipidemia, hypothyroidism remained stable 8. DVT prophylaxis - Lovenox SC Charges/Coding Visit Charges Inpatient E&M: 16868 Subs Hosp L3
[2021-10-23 12:02] LABS: Lactic Acid 3.8 mmol/L (0.4-1.9)
[2021-10-23] MEDS: LORazepam 2 MG/ML Syringe IV (12:36)
[2021-10-23] MEDS: Etomidate 20 MG/10 ML Vial IV (12:42)
[2021-10-23] MEDS: Succinylcholine Chloride 200 MG/10 ML Vial 100 MG IV (12:42)
[2021-10-23] MEDS: Propofol 10MG/Ml 1,000 MG/100 ML Bottle 4.1 MG CONT INF (12:50)
[2021-10-23] MEDS: Epinephrine IV 1 mg/10 ml syringe IV (12:51)
[2021-10-23] MEDS: Sodium Bicarbonate 8.4% 50 ML Syringe 50 MEQ IV (12:51)
--- NOTE | 2021-10-23 12:54 | NURSING ---
[address] sin aware that not sustaining bp. pt bp 66/34. hr still reading 123 but exts with delayed cap refill and cool to touch. rr rate still 40's and spo2 100% with fio2 decreased to 60% ok for pt to go to icu and auditor in charge aware. fluid bolus up wide open. bs 141 and lantus held
--- NOTE | 2021-10-23 12:59 | NURSING ---
1210-report called to agricultural aircraft pilot with no questions voiced. pt opened eyes to verbal stimuli and informed that moving to icu. all belongings packed and with pt. dr. sin to call pt's daughter. lactic back at 3.8 and viscose cellar charge hand had texted results to cps called for transfer.
--- NOTE | 2021-10-23 13:00 | RAD_ITS ---
STUDY: X-RAY CHEST REASON FOR EXAM: Female, 60 years old. Et tube placement TECHNIQUE: Single AP portable view of the chest. COMPARISON: Comparison is made with prior examination dated 10/23/2021 at 6:42 AM. FINDINGS: The endotracheal tube is in situ. The tip is at 3.4 cm proximal to the jez. An orogastric tube is seen with the tip at the gastroesophageal junction. Since prior study, there has been progressive infiltrates in both lower lobes worse at the right lung base. There is no demonstrated pleural abnormality. Normal size heart. Normal mediastinum and donato. Normal visualized pulmonary arteries. Normal visualized aortic arch and descending thoracic aorta. Normal visualized thoracic spine. Normal visualized ribs, clavicles, and shoulders. Gaseous distention of the stomach. RAD/Chest 1 View (Portable) IMPRESSION: The tip of the endotracheal tube is at 3.4 cm proximal to the jez. The tip of the orogastric tube is at the gastroesophageal junction. Progressive infiltrates in both lower lobes worse on the right side. Gaseous distention of the stomach. Electronically Signed: Todd Zapien MD at 13:43 EST , Service support ,
--- NOTE | 2021-10-23 13:01 | NURSING ---
1220 pt to icu 2 but upon arrival pt unresponsive again despite sternal rub. st remains on monitor though pulses thready d/t poor perfusion and hypotension. icu staff and dr. carlisle to room. when hooked up core temp catheter pt's temp reading 106.1 despite tylenol. no way of knowing this on pcu floor as no core temp monitoring capabilities. decision made to intubate and staff in room
[2021-10-23] MEDS: Lactated Ringers 1,000 ML 999 ML IV (13:27)
--- NOTE | 2021-10-23 13:42 | EX.PCM.CONCC ---
Assessment & Plan Assessment/Plan (1) Respiratory arrest before cardiac arrest: (2) Asthma: QUALIFIERS: Asthma severity: unspecified severity Asthma complication type: unspecified Asthma persistence: unspecified Qualified Code(s): J45.909 - Unspecified asthma, uncomplicated (3) End-stage renal disease on hemodialysis: (4) COVID-19: PLAN: RECOMMENDATIONS: 1. Continue mechanical ventilation for airway protection 2. Aggressive control of temperature 3. Empiric antibiotics pending culture results 4. Place central line to facilitate pressors 5. Obtain stat labs. Possible endoscopy IMPRESSIONS: 1. Cardiac arrest of unclear etiology Patient with significant hypotension and fevers over the last 24 hours. Patient is on steroids and does have COVID-19. Will place patient on empiric antibiotics. Patient has received fluid resuscitation without improvement. Patient has been placed on Levophed. Vasopressin will likely also be needed. ROSC was obtained after approximately 5 minutes, but status continues to be tenuous. Bedside ultrasound of the heart by myself shows a hyperdynamic state without obvious wall motion abnormalities. Pancultures are currently pending. 2. Possible new onset seizure Patient with 2 episodes of unresponsiveness through the day. Patient is documenting fevers of up to 106. Patient intubated for airway protection and subsequently arrested. Patient will be placed on propofol. We will hold on Keppra for now. Patient is on Synthroid at baseline. We will check labs to see if patient is hyperthyroid leading to current findings. 3. Probable new onset upper GI bleed Patient has been reporting of nausea for 48 hours per family. Patient does have a history of gastroparesis. Patient with significant coffee-ground and bright red blood noted from OG after intubation. CBC has not been obtained for days. Stat labs have been ordered. GI is aware. Patient has been placed on PPI. May need to stabilize from a hemodynamic standpoint before endoscopy can be obtained. 4. Acute hypoxic respiratory failure secondary to COVID-19 Patient with significant worsening in oxygenation over the last 48 to 72 hours requiring nasal cannula at first and then BiPAP rescue prior to transfer to the intensive care unit. Patient has been on Decadron therapy. No Remdesivir or baricitinib given renal dysfunction. Cannot exclude a secondary bacterial pneumonia or other complication. 5. End-stage renal disease/hyperkalemia/hypokalemia/diabetes mellitus type 2/hyperlipidemia/hypothyroidism Complicates care, management, recovery and prognosis. Blood sugars have been adequate when tested and do not account for patient's unresponsive episodes. We will need to hold baseline medications until further information is available. TIME: 140 minutes of critical care time spent addressing patient's cardiac arrest, possible seizure, respiratory failure, review of all data and collaboration with care team HPI Consult Data Date of Consult: 10/23/21 HPI Narrative HPI Narrative: MARLENY DIXON is a 60 F, with past medical history listed below, who presented to [facility] 10/19/2021 secondary to not feeling well following a COVID-19 diagnosis. Patient reportedly had been feeling poorly all week and had not needed to dialysis the last 3 sessions. Patient had come to the ER because the [facility] dialysis center was in [place] and she did not think she would be able to make it there. Patient had had generalized [place] and fatigue. Patient was vaccinated against COVID-19. Review of the medical record shows the patient did request monoclonal antibodies earlier in the week, but it does not appear these were infused. In the ER, patient was afebrile, normotensive and breathing 17 times per minute. The patient did require 2 L nasal cannula to maintain saturations. Laboratory work-up at that time showed a hemoglobin of 11.3, white blood cell count of 6.6 and platelets of 171. Patient did have an elevated potassium of 6.3, creatinine of 7.54 and a BUN of 74. Chest x-ray showed increased infiltrates bilaterally. The patient was admitted to the hospital and arranged for emergent hemodialysis. Through hospital course, patient was doing okay on minimal to no nasal cannula oxygen and Decadron therapy. Patient reportedly had 3 L of fluid removed yesterday with dialysis. Patient's daughter reported that she had complained of nausea for 2 days straight. Overnight, patient reportedly was attempting to gag herself to get relief. Patient reportedly does suffer from gastroparesis. No one is aware of any coffee-ground emesis, melena or hematochezia. However, today patient became unresponsive while in the PCU. Patient was noted to be febrile and hypotensive at that time. Patient was given some IV fluids without correction of blood pressure, so was transferred to the intensive care unit. Patient was seen by myself while still on the gurney. An indwelling Eugene catheter was reading 106.1 ?F and patient was noted to be tachycardic. Patient was noted to be unresponsive to a sternal rub on BiPAP therapy saturating 100%. The patient was transferred to the bed and remained minimally responsive. Patient was noted to have significant distention of her belly and there was some concern for protection of her airway, so preparations were made for intubation. The patient was given 2 mg of Ativan for possible seizure activity. Patient was then given medications for intubation. See note below for further details. During intubation, patient became hypoxic, bradycardic and lost a pulse. CPR was initiated. Patient did receive epinephrine, bicarbonate in addition to intubation. ROSC was obtained and patient was hypotensive. Placement of an OG showed significant coffee-ground and bright red blood. Patient was initiated on peripheral Levophed and given a liter of LR. Sometime after, patient's daughter was updated on the current situation. Preparations for placement of a central line are currently underway. Unable to obtain review of systems secondary to patient's unresponsiveness. Did review electronic medical record at length. [facility] Medical History (Updated 10/23/21 @ 14:[address] 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 Back problem Bone fracture Breast lump Cataracts, bilateral Charcot's joint of right foot Chronic headaches COPD (chronic obstructive pulmonary disease) Diabetes type I Diabetic polyneuropathy Essential hypertension GERD (gastroesophageal reflux disease) H/O transfusion of whole blood Heart murmur History of non-ST elevation myocardial infarction (NSTEMI) Hormone deficiency Hyperlipidemia Hypoglycemia Hypothyroidism Kidney failure Multinodular goiter Nonrheumatic mitral valve regurgitation Osteoporosis Pneumonia Recurrent UTI Seasonal allergies Seizure Sleep apnea Thyroid nodule Vascular disease Vision problem Home Medications acetaminophen 650 mg PO Q6H PRN PRN tab 01/20/19 [Rx Last Taken Unknown] albuterol sulfate 90 mcg/actuation aerosol inhaler 2 puff INHALATION Q6H PRN 04/09/20 [History Last Taken 10/19/21] naproxen sodium 220 mg capsule 220 mg PO BID PRN 05/11/20 [History Last Taken Unknown] aspirin 81 mg tablet,delayed release 81 mg PO DAILY 06/08/20 [History Last Taken 10/19/21] blood sugar diagnostic #150 ea 08/18/20 [Rx Last Taken Unknown] ergocalciferol (vitamin D2) 50,000 unit PO QMONTH 11/15/20 [History Last Taken Unknown] pen needle, diabetic 31 gauge x 02/17 #100 ea 03/11/21 [Rx Last Taken Unknown] blood sugar diagnostic #200 ea 06/06/21 [Rx Last Taken Unknown] levothyroxine 112 mcg PO DAILY 06/29/21 [History Last Taken 10/19/21] ibuprofen 600 mg tablet 600 mg PO PRN PRN tab 07/16/21 [History Last Taken Unknown] midodrine 10 mg tablet 10 mg PO .COMPLEX tab 07/16/21 [History Last Taken 10/12/21] blood sugar diagnostic #100 ea 08/01/21 [Rx Last Taken Unknown] flash glucose sensor #2 ea 09/12/21 [Rx Last Taken Unknown] hydroxyzine HCl 25 mg PO BID PRN 09/12/21 [History Last Taken Unknown] sevelamer HCl 800 mg PO TID 09/12/21 [History Last Taken 10/18/21] atorvastatin 80 mg PO QHS 10/19/21 [History Last Taken 10/18/21] denosumab [Prolia] 60 mg SC [id number] 10/19/21 [History Last Taken Unknown] insulin aspart U-100 1 - 3 unit SC TID 10/19/21 [History Last Taken Unknown] insulin degludec [Tresiba FlexTouch U-100] 9 unit SUBCUT BID 10/19/21 [History Last Taken 10/19/21] aripiprazole 2 mg PO DAILY 10/21/21 [History Last Taken Unknown] vortioxetine [Trintellix] 20 mg PO DAILY 10/21/21 [History Last Taken Unknown] Allergy/AdvReac Type Severity Reaction Status Date / Time methadone Allergy Intermediate Rash Verified 10/19/21 12:21 mirtazapine [From Remeron] AdvReac Severe Kidney Verified 10/19/21 12:21 failure prochlorperazine edisylate AdvReac Other Verified 10/19/21 12:21 [From Compazine] prochlorperazine maleate AdvReac Other Verified 10/19/21 12:21 [From Compazine] Family History Mother Arthritis Cancer Hormone deficiency Thyroid disorder Osteoporosis Skin cancer Father Arthritis Diabetes Heart disease Hypertension High cholesterol CVA (cerebral vascular accident) Surgical History H/O dilation and curettage H/O tubal ligation history fistulagram (~12/16/18) History of amputation of right great toe History of colonoscopy History of endoscopy History of hand surgery Hx of cataract surgery left arm fistula creation raquel removal r leg tibula/fibula surgery Wrist fracture Social History number of children: 1 current occupational status: disabled history of recent travel: No sexually active: No Smoking Status: Never smoker second hand exposure: No alcohol intake: current alcohol intake frequency: holidays/special occasions only substance use type: does not use diet: other well-balanced diet: daily or most days caffeine: Yes Type: carbonated beverages Number of servings: 1 what type of physical activity do you participate in: none seatbelt use: always do you feel safe at home: Yes ROS Review of Systems ROS Unobtainable: due to endotracheal tube and due to mental status Physical Exam Const General Appearance: appears older than stated age and on BiPAP Orientation / Consciousness: obtunded Nutritional Appearance: overweight HEENT normocephalic and head/scalp atraumatic Eyes PERRL Eyes Narrative: Scleral injection noted on initial evaluation Neck full ROM Chest inspection of chest normal Chest: symmetrical chest wall rise; Negative for crepitus Resp Effort and Inspection: tachypneic Auscultation: diminished lung sounds; Negative for rales, rhonchi or wheezes Cardio S1 normal heart sound, S2 normal heart sound, no murmurs, no rub and no gallops Rate: tachycardic GI Inspection: abdominal distention Palpation: Negative for guarding, rigid or ascites Extremity no clubbing, cyanosis or edema Skin no rashes or lesions noted Neuro Michael Coma Scale: document GCS findings None Withdraws to Pain None 6 Lab / Micro Data Result Diagrams: 10/20/21 07:53 10/23/21 05:20 Labs: Laboratory Results - last 24 hr 10/20/21 07:53: Ionized Calcium 3.7 L 10/22/21 16:43: POC Glucose 249 H 10/22/21 19:59: POC Glucose 436 H 10/23/21 02:01: POC Glucose 461 H* 10/23/21 05:20: Sodium 132 L, Potassium 3.7, Chloride 93 L, Carbon Dioxide 28.0, Anion Gap 11, BUN 47 H, Creatinine 4.92 H, Estim Creat Clear Calc 9.18, Est GFR (MDRD) Af Amer 12 L, Est GFR (MDRD) Non-Af 10 L, BUN/Creatinine Ratio 9.6 L, Glucose 334 H, Calcium 7.2 L, Magnesium 2.5, Total Bilirubin 0.60, AST 24, ALT 30, Alkaline Phosphatase 91, Total Protein 7.5, Albumin 3.1 L, Globulin 4.4 H, Albumin/Globulin Ratio 0.7 L 10/23/21 05:20: Phosphorus 2.4 L 10/23/21 06:13: POC Glucose 324 H 10/23/21 09:35: Lactic Acid 3.8 H* 10/23/21 09:45: POC Glucose 299 H 10/23/21 11:24: POC Glucose 141 H Micro: Microbiology 10/23/21 10:47 Urine Catheter - Eugene Legionella Antigen - Final 10/23/21 10:47 Urine Catheter - Eugene Streptococcus pneumoniae Antigen (M - Final ABG Data ABG results: ABG 10/23/21 10:00 Specimen Type ART Sample Site R Radial pH 7.56 H Bicarbonate Actual 24.1 Total CO2 25 Base Excess 2 O2 Saturation 92 L O2 % 93 ABG pCO2 27.0 L ABG pO2 53 L Jean-Pierre Test Positive O2 Delivery Device Vapotherm Clinical Comments 60lpm 93% Radiology Impression Chest X-Ray 10/23/21 06:34 IMPRESSION: 1. Bilateral basilar airspace disease and atelectasis appears greater than was apparent on previous study. 2. Cardiomegaly and pulmonary vascular congestion. Electronically Signed: Rufina Dillon MD at 8:01 EST , Service support , Intubation Indication: Shock Consent was obtained from: Emergent The patient was placed in the appropriate sniffing position. Preoxygenated sedation via BiPAP was provided for a minimum of 3 minutes. The patient had continuous cardiac as well as pulse oximetry monitoring during the procedure. Procedure sedation was provided by the administration of 2 mg of Ativan, 100 mg of succinylcholine and 20 mg of etomidate. Video laryngoscopy was then performed using a number 4 blade, which revealed a grade 4 view. Gastric regurgitation was noted at the cords. Initial attempts of placing a 7.5 endotracheal tube were unsuccessful. Able to get the tip through the cords, but balloon could not advance. 2 attempts were tried with a 7.5 and then a 7.0 tube was used. A 7 mm endotracheal tube was visualized advancing between the cords to the level of 23 cm at the lip. The stylette was then removed and discarded. Tube placement was confirmed by fogging in the tube along with equal and bilateral breath sounds. Colorimetric change was visualized on the CO2 meter. The cuff was then inflated and the tube secured using a commercially available device. A fair pulse oximetry waveform was seen on the monitor throughout the procedure. The patient did desaturate to the 50s with bradycardia during intubation. A portable chest x-ray has been ordered to confirm appropriate placement. Patient coded shortly thereafter, but ROSC was obtained. See nursing documentation for specifics Charges/Coding Procedures Hospitalists Procedures: 84952 Critial Care 1st Hr Multi Select Codes Hospitalists' Procedures Procedures: 33211 Critial Care Addl 30 Min (x3, a total of 140 minutes of critical care time)
[2021-10-23 13:59] LABS: CPK Total, Creatine Kinase 466 U/L (26-192); Triglycerides 189 mg/dL
[2021-10-23 14:07] LABS: Free T3 1.2 pg/mL (2.18-3.98); T4 Free Direct 1.47 ng/dL (0.76-1.46); Thyroid Stim Hormone (TSH) 2.25 uIU/mL (0.358-3.74)
--- NOTE | 2021-10-23 14:15 | NURSING ---
Dianne Poole and Dr. Mckeon at bedside to place central line.
--- NOTE | 2021-10-23 14:27 | RAD_ITS ---
STUDY: X-RAY CHEST REASON FOR EXAM: Female, 60 years old. Central line placement TECHNIQUE: Single AP portable view of the chest. COMPARISON: Comparison is made with prior examination done earlier today at 12:57 PM. FINDINGS: A right-sided internal jugular venous catheter has been placed. The tip is at the junction of the superior vena cava and right atrium. The remainder of the support tubes are unchanged. Since prior study, there has been progressive infiltrates in both lungs worse in the right hemithorax. RAD/CXR for Line Placement IMPRESSION: The right internal jugular venous catheter is at the junction of the superior vena cava and right atrium. The support tubes are unchanged. Progressive right lung infiltrate. Electronically Signed: Todd Zapien MD at 15:11 EST , Service support ,
--- NOTE | 2021-10-23 14:27 | EKG12_ITS ---
Test Reason : POST ROSC Blood Pressure : / mmHG Vent. Rate : 157 BPM Atrial Rate : 157 BPM P-R Int : 094 ms QRS Dur : 070 ms QT Int : 308 ms P-R-T Axes : 032 -06 084 degrees QTc Int : 497 ms Sinus tachycardia with short ND ST & T wave abnormality, consider lateral ischemia Abnormal ECG Confirmed by GRAHAM SARKAR, CLEMENT ([id number]), editor managing director SALOME MA ([id number]) on 10/25/2021 9:18:59 AM Referred By: SOPHIA Confirmed By:CLEMENT STEVENSON MD
--- NOTE | 2021-10-23 14:47 | PCM.OP.BLANK ---
Operative Report Date of Procedure: 10/23/21 Central line placement procedure note Indication: IV access/hemodynamic instability/vasoactive medications Procedure: A time-out was completed to verify correct patient, indication, medication allergies, procedure, coagulation studies, informed consent signed, and equipment needed. The patient was placed in the supine position for a central line placement to the rt IJ vein. The patients rt/left neck/shoulder/groin was prepped using chlorhexidine and a full body sterile drape was applied. 1% lidocaine was used to anesthetize the surrounding skin. A 7fr 16 cm blue guard triple lumen catheter introduced into the internal jugular vein using the modified Seldinger technique with the assistance of ultrasound. The catheter was threaded smoothly over the guidewire, the guidewire was removed easily, nonpulsatile blood returned. All ports were aspirated of air and flushed with sterile saline. The catheter was sutured in place and covered with an occlusive dressing impregnated with chlorhexidine. Post-procedure: The patient tolerated the procedure well. Vital signs remained stable. EBL 3cc. No complications. Chest X Ray ordered to confirm tip placement and the absence of pneumothorax. Procedures Hospitalists Procedures: 18186 Insert Non-tunnel CV Cath
[2021-10-23 15:00] LABS: Allen Test Positive; Base Excess -3 mmol/L (-2 to +2); Bicarbonate 20.2 mmol/L (22-26); Blood Gas Specimen Type ART; FI02 100; Mode AC; O2 Delivery Device Adult Vent; PEEP 5; PO2 63 mmHG (75-100); RR 16; SITE R Radial; SO2 94 % (95-99); Total Carbon Dioxide 21 mmol/L; Vt 400; pCO2 27.8 mmHg (35-45); pH 7.47 (7.35-7.45)
--- NOTE | 2021-10-23 15:12 | CHAPLAIN ---
Type of Pastoral Visit ___ Initial Visit ___ Follow-up Visit ___ On-call Visit ___ General Patient Visit ___ Spiritual Assessment ___ Family Conference ___ Bereavement ___ Rapid Response ___ Code Blue ___ Other (describe below) Pastoral Care Referral From ___ Patient ___ Family ___ Nurse ___ Physician ___ Singe Winder ___ Blacksmith Supervisor _x__ Other (describe below) Sacrament/Intervention _x__ Active listening ___ Anointing ___ Spiritism ___ Bereavement ___ Communion ___ [place] exploration ___ ___ Life review _x__ Prayer ___ Reconciliation ___ Sacrament of Sick _x__ Supportive presence ___ Wedding _x__ Other (describe below) Pastoral Comments responded to code blue for patient; gave presence and was available to family member - daughter - upon her arrival to hospital; stayed with daughter, helped her into PPE, sat with her as she awaited information from RN and ; prayed with daughter; escorted daughter out of ICU so she could find food away from floor; daughter will be available by phone as needed; support offered to staff
--- NOTE | 2021-10-23 15:12 | PCM.RX.CS ---
Consult Pharmacy has been consulted to manage selected antiobiotic: Vancomycin Type of Consult: New start Suspected Infection: Pneumonia Labs: Sodium 132 mmol/L (136-145) L 10/23/21 05:20 Potassium 3.7 mmol/L (3.5-5.1) 10/23/21 05:20 Chloride 93 mmol/L (98-107) L 10/23/21 05:20 Carbon Dioxide 28.0 mmol/L (21.0-32.0) 10/23/21 05:20 Anion Gap 11 (5-15) 10/23/21 05:20 BUN 47 mg/dL (7-18) H 10/23/21 05:20 Creatinine 4.92 mg/dL (0.55-1.02) H 10/23/21 05:20 Est GFR (MDRD) Af Amer 12 mL/min (>60) L 10/23/21 05:20 Est GFR (MDRD) Non-Af 10 mL/min (>60) L 10/23/21 05:20 BUN/Creatinine Ratio 9.6 RATIO (10-20) L 10/23/21 05:20 Glucose 334 mg/dL (74-106) H 10/23/21 05:20 Microbiology: Microbiology 10/23/21 10:47 Urine Catheter - Eugene Legionella Antigen - Final 10/23/21 10:47 Urine Catheter - Eugene Streptococcus pneumoniae Antigen (M - Final Goal Trough: 15-20 mcg/mL Pharmacy Plan for Drug Dosing: Pharmacy Service will continue to monitor and adjust dosing as required. NEW START IV VANCOMYCIN Consulting Physician: KENDRA SALDANA Indication:PNEUMONIA,SECONDARY Goal Trough:15-20MG/L SrCr:DIALYSIS PATIENT;NO SET SCHEDULE AT THIS TIME CrCl:NA Comments:LOADING DOSE 1750MG IV X 1 DOSE Vancomcyin Dose:PHARMACY TO FOLLOW; WITH DIALYSIS SCHEDULE Pending Level:PENDING DIALYSIS SCHEDULE
[2021-10-23 15:20] LABS: Absolute Lymphocyte Count 0.46 X10^3/uL (0.83-4.51); Absolute Neutrophil Count 1.3 X10^3/uL (2.0-7.7); Basophil# 0.01 X10^3/uL; Basophil% 0.5 % (0-1); Eosinophil# 0.01 X10^3/uL; Eosinophils% 0.5 % (0-5); Hematocrit 42.2 % (37-47); Hemoglobin 13.7 g/dL (12.0-15.0); Lymphocyte # 0.46 X10^3/ul (0.83-4.51); Lymphocyte % 24.6 % (19-41); Mean Corp Hgb Conc 32.5 g/dL (32-36); Mean Corpuscular Hgb 28.6 pg (27.0-32.0); Mean Corpuscular Volume 88.1 fL (81-99); Mean Platelet Vol. 11.3 fl (6.2-12.0); Monocyte# 0.05 X10^3/uL; Monocyte% 2.7 % (0-10); NRBC Flagged by Analyzer 1.1 % (0-5); Neutrophil # 1.32 X10^3/uL (2.7-7.7); Neutrophil % 70.6 % (47-70); POSITIVE DIFFERENTIAL YES; POSITIVE MORPHOLOGY YES; Platelet Count 173 K/mm3 (150-450); RBC Distribution Width CV 15.9 % (11.6-14.6); RBC Distribution Width SD 51.8 fl (35.1-43.9); Red Blood Count 4.79 M/mm3 (4.2-5.4); White Blood Count 1.9 K/mm3 (4.4-11.0)
[2021-10-23 15:27] LABS: Differential Indicated SCAN CRITERIA MET
[2021-10-23 15:29] LABS: International Normalized Ratio 1.5; Prothrombin Time (Protime)PT. 17.2 SECONDS (11.7-14.9)
[2021-10-23 15:30] LABS: Partial Thromboplast Time 33.3 Seconds (24.1-36.2)
[2021-10-23 15:33] LABS: Reflex Lactate? Y
[2021-10-23 16:02] LABS: Lactic Acid 8.9 mmol/L (0.4-1.9)
[2021-10-23 16:13] LABS: Differential Comment SCANNED
[2021-10-23] MEDS: fentaNYL 100 MCG/2 ML Ampul 50 MCG IV (17:05)
[2021-10-23] MEDS: Dextrose 50%-Water 25 GM/50 ML DISP.SYRIN IV ×2 (18:14→22:48)
[2021-10-23 18:16] LABS: Bedside Glucose 17 mg/dL (70-110)
--- NOTE | 2021-10-23 18:49 | NURSING ---
fentanyl and propofol restarted at 1700 for sedation through EGD. Once EGD complete, both meds weaned down.
[2021-10-23 19:42] LABS: Reflex Lactate? Y
[2021-10-23] MEDS: Acetaminophen 650 MG/20 ML UDC NG (20:27)
[2021-10-23 20:46] LABS: Bedside Glucose 75 mg/dL (70-110)
[2021-10-23 20:46] LABS: Bedside Glucose 60 mg/dL (70-110)
[2021-10-23 20:47] LABS: Hematocrit 44.3 % (37-47); Hemoglobin 13.8 g/dL (12.0-15.0)
[2021-10-23 21:02] LABS: Lactic Acid 11.6 mmol/L (0.4-1.9)
--- NOTE | 2021-10-23 21:55 | RAD_ITS ---
INDICATION: abdominal distention EXAMINATION/TECHNIQUE: X-RAY - XR Abdomen 1 View COMPARISON: 09/18/2021 FINDINGS: Lines and tubes: NG tube extends into the stomach. Temperature probe extends into the pelvis. BOWEL GAS PATTERN: Multiple segments of distended bowel noted throughout the abdomen and pelvis, majority of which appears to represent large bowel. No bowel or stomach distention. FREE AIR: Not assessed on a single supine view. ORGANOMEGALY: Not seen. CALCIFICATIONS: No abnormal calcifications observed. LOWER CHEST: No acute pathology. BONES AND SOFT TISSUES: No acute pathology. RAD/Abdomen Single View (Portable) IMPRESSION: 1. NG tube extends into the stomach. 2. Gas-filled distended bowel segments, majority of which appears represent large bowel. Findings are consistent with an adynamic ileus. No adriana bowel obstruction or pneumatosis. Electronically Signed: Rober Sabillon MD at 22:19 EST Tel , Service support ,
[2021-10-23] MEDS: Dextrose 10%-Water 250 ML 20 ML IV (22:30)
[2021-10-23] MEDS: TITRATION PARAMETER CHANGE 1 EACH IV (23:40)
[2021-10-24] VITALS (39 sets, daily range): BP systolic 62–148; BP diastolic 36–57; PULSE 86–106; RESP 16–29; TEMP 36.8–38.3; O2SAT 0–99
[2021-10-24 00:01] LABS: Bedside Glucose 67 mg/dL (70-110)
[2021-10-24 00:01] LABS: Bedside Glucose 16 mg/dL (70-110)
[2021-10-24 00:01] LABS: Bedside Glucose 59 mg/dL (70-110)
[2021-10-24] MEDS: Dextrose 50%-Water 25 GM/50 ML DISP.SYRIN IV ×3 (01:11→08:07)
[2021-10-24 01:40] LABS: Bedside Glucose 76 mg/dL (70-110)
[2021-10-24 01:40] LABS: Bedside Glucose 59 mg/dL (70-110)
[2021-10-24 05:39] LABS: Hemoglobin 12.4 g/dL (12.0-15.0); Mean Corp Hgb Conc 28.8 g/dL (32-36); Mean Corpuscular Hgb 27.8 pg (27.0-32.0); Mean Corpuscular Volume 96.4 fL (81-99); Mean Platelet Vol. 11.9 fl (6.2-12.0); POSITIVE COUNT YES; POSITIVE MORPHOLOGY YES; Platelet Count 101 K/mm3 (150-450); RBC Distribution Width CV 16.4 % (11.6-14.6); RBC Distribution Width SD 58.4 fl (35.1-43.9); Red Blood Count 4.46 M/mm3 (4.2-5.4); White Blood Count 10.6 K/mm3 (4.4-11.0)
[2021-10-24 05:46] LABS: Differential Indicated MANUAL DIFF
[2021-10-24] MEDS: TITRATION PARAMETER CHANGE 1 EACH IV (06:00)
[2021-10-24 06:04] LABS: Glucose 252 mg/dL (74-106)
[2021-10-24 06:05] LABS: Anion Gap 27 (5-15); BUN 66 mg/dL (7-18); BUN/Creat Ratio 10.4 RATIO (10-20); Calcium,Total 6.3 mg/dL (8.5-10.1); Chloride 100 mmol/L (98-107); Creatinine, Serum 6.34 mg/dL (0.55-1.02); EST Glomerular Filtration Rate 7 mL/min (>60); Est Glom Filt Rate - Afr Amer 8 mL/min (>60); Estimated Creatinine Clearance 7.12 ml/min; Phosphorus 14.2 mg/dL (2.5-4.9); Potassium 6.4 mmol/L (3.5-5.1); Sodium Level 137 mmol/L (136-145)
[2021-10-24 06:36] LABS: Bedside Glucose 71 mg/dL (70-110)
[2021-10-24 06:41] LABS: Bedside Glucose 46 mg/dL (70-110)
[2021-10-24 06:41] LABS: Bedside Glucose 57 mg/dL (70-110)
[2021-10-24 06:41] LABS: Bedside Glucose 60 mg/dL (70-110)
[2021-10-24 06:54] LABS: Total Cells Counted 100 (MANUAL DIFF)
[2021-10-24 06:59] LABS: Neutrophil-Band 19 % (0-5); Neutrophil-Segmented 28 % (47-70)
[2021-10-24 07:00] LABS: Blast 1 % (0-0); Lymphocyte 24 % (19-41); Metamyelocyte 13 % (0-1); Monocyte 5 % (0-10); Myelocyte 9 % (0-0)
[2021-10-24 07:01] LABS: Neutrophil # 4.99 X10^3/uL (2.7-7.7); Platelet Estimate SLT DEC (ADEQ); Red Cell Morphology NORM C+C NORMAL (NORM C&C)
[2021-10-24 07:02] LABS: Absolute Lymphocyte Count 2.55 X10^3/uL (0.83-4.51); Lymphocyte # 2.55 X10^3/ul (0.83-4.51)
[2021-10-24] MEDS: Dextrose 10%-Water 250 ML 40 ML IV (07:05)
--- NOTE | 2021-10-24 07:06 | PN.CC_ITS ---
Assessment & Plan Assessment/Plan (1) Respiratory arrest before cardiac arrest: (2) Asthma: QUALIFIERS: Asthma severity: unspecified severity Asthma complication type: unspecified Asthma persistence: unspecified Qualified Code(s): J45.909 - Unspecified asthma, uncomplicated (3) End-stage renal disease on hemodialysis: (4) COVID-19: PLAN: RECOMMENDATIONS: 1. Continue mechanical ventilation for airway protection 2. Continue empiric antibiotics 3. Anticipate cardiac arrest later this morning 4. Continue PPI. No indication for transfusion 5. Continue D10 drip for now IMPRESSIONS: 1. Cardiac arrest secondary to septic shock Patient with significant hypotension and fevers over the last 24 hours. Patient is on steroids and does have COVID-19. Patient placed on empiric antibiotics yesterday. Patient has developed refractory septic shock at this point. Patient is currently on 3 pressors and will not tolerate any dialysis. Patient is growing gram-positive cocci in all blood cultures within 24 hours. 2. Possible new onset seizure Patient with 2 episodes of unresponsiveness through the day. Patient is documenting fevers of up to 106. Patient intubated for airway protection and subsequently arrested. Patient has had episodes of hypoglycemia, but no repeat seizure activity has been noted. 3. Acute blood loss secondary to Laurie-Schuster tear Patient has been reporting of nausea for 48 hours per family. Patient does have a history of gastroparesis. Patient with significant coffee-ground and bright red blood noted from OG after intubation. Labs show hemoglobin is still relatively acceptable. Patient did have intervention yesterday by GI and no further bloody secretions have been reported. 4. Acute hypoxic respiratory failure secondary to COVID-19 Patient with significant worsening in oxygenation over the last 48 to 72 hours requiring nasal cannula at first and then BiPAP rescue prior to transfer to the intensive care unit. Patient has been on Decadron therapy. No Remdesivir or baricitinib given renal dysfunction. Patient's respiratory status has been relatively stable following intubation. 5. End-stage renal disease/hyperkalemia/hypokalemia/diabetes mellitus type 2/hyperlipidemia/hypothyroidism Complicates care, management, recovery and prognosis. Patient has been hypoglycemic over the last 24 hours. Lantus has been held. We will need to hold baseline medications until further information is available. TIME: 35 minutes of critical care time spent addressing patient's cardiac arrest, possible seizure, respiratory failure, review of all data and collaboration with care team Subjective Subjective Patient with continued decompensation overnight. Patient had to have epinephrine added secondary to hypotension. Blood cultures have come back in less than 24 hours in all bottles with GPCs. Patient has had multiple episodes of hypoglycemia over the last 24 hours. Patient has received D50 and is currently on a D10 drip. Patient's daughter has been contacted about her grave position, but states that she would still want everything done including CPR despite poor prognosis of improvement. Objective Data Objective Data Vital Signs: Vital Signs Temp Pulse Resp BP Pulse Ox 37.2 C 100 19 H 82/47 L 93 10/24/21 02:00 10/24/21 06:00 10/24/21 04:57 10/24/21 06:00 10/24/21 04:57 Oxygen Flow Rate (L/min) 60 Oxygen Delivery Method Mechanical Ventilator Weight: 72.5 kg Body Mass Index (BMI) 2.9 Intake & Output: Intake and Output for Last 24 Hours 10/22/21 10/23/21 10/24/21 23:59 23:59 23:59 Intake Total 1320 / 1320 3442.03 / 3559.52 790.79 / 790.79 Output Total 300 / 300 990 / 990 Balance 1020 / 1020 2452.03 / 2569.52 790.79 / 790.79 Lab / Micro Data Result Diagrams: 10/24/21 05:15 10/24/21 05:15 Labs: Laboratory Results - last 24 hr 10/23/21 05:20: TSH 2.25, Free T4 1.47 H, Free T3 pg/dL 1.2 L 10/23/21 09:35: Lactic Acid 3.8 H* 10/23/21 09:45: POC Glucose 299 H 10/23/21 10:03: Total Creatine Kinase 466 H, Triglycerides 189 10/23/21 11:24: POC Glucose 141 H 10/23/21 14:45: Blood Type A POSITIVE, Antibody Screen NEGATIVE, Crossmatch See Detail 10/23/21 14:45: WBC 1.9 L, RBC 4.79, Hgb 13.7, Hct 42.2, MCV 88.1, MCH 28.6, MCHC 32.5, RDW Std Deviation 51.8 H, RDW Coeff of Abdoul 15.9 H, Plt Count 173, MPV 11.3, Immature Gran % (Auto) 1.100 H, Neut % (Auto) 70.6 H, Lymph % (Auto) 24.6, [place] % (Auto) 2.7, Eos % (Auto) 0.5, Baso % (Auto) 0.5, Absolute Neuts (auto) 1.3 L, Absolute Lymphs (auto) 0.46 L, Nucleated RBC % 1.1, Differential Comment SCANNED, Diff Path Review February10/23/21 14:45: PT 17.2 H, INR 1.5, APTT 33.3 10/23/21 14:45: Lactic Acid 8.9 H* 10/23/21 18:10: POC Glucose 17 L* 10/23/21 18:29: POC Glucose 75 10/23/21 20:17: POC Glucose 60 L 10/23/21 20:24: Hgb 13.8, Hct 44.3 10/23/21 20:24: Lactic Acid 11.6 H* 10/23/21 22:44: POC Glucose 16 L* 10/23/21 23:14: POC Glucose 59 L 10/23/21 23:46: POC Glucose 67 L 10/24/21 01:08: POC Glucose 59 L 10/24/21 01:33: POC Glucose 76 10/24/21 03:48: POC Glucose 57 L 10/24/21 05:02: POC Glucose 60 L 10/24/21 05:15: Magnesium 3.0 H 10/24/21 05:15: Sodium 137, Potassium 6.4 H*, Chloride 100, Carbon Dioxide 10.0 L, Anion Gap 27 H, BUN 66 H, Creatinine 6.34 H, Estim Creat Clear Calc 7.12, Est GFR (MDRD) Af Amer 8 L, Est GFR (MDRD) Non-Af 7 L, BUN/Creatinine Ratio 10.4, Glucose 252 H, Calcium 6.3 L*, Phosphorus 14.2 H* 10/24/21 05:15: WBC 10.6, RBC 4.46, Hgb 12.4, Hct 43.0, MCV 96.4 D, MCH 27.8, MCHC 28.8 L D, RDW Std Deviation 58.4 H, RDW Coeff of Abdoul 16.4 H, Plt Count 101 L, MPV 11.9, Neut % (Auto) Not Reportable, Absolute Neuts (auto) 5.0, Absolute Lymphs (auto) 2.55, Total Counted 100, Neutrophils % (Manual) 28 L, Band Neutrophils % 19 H, Lymphocytes % (Manual) 24, Monocytes % (Manual) 5, Metamyelocytes % 13 H, Myelocytes % 9 H, Blast Cells % 1 H*, Diff Path Review May , Platelet Estimate SLT DEC, RBC Morphology NORM C+C 10/24/21 05:25: POC Glucose 46 L 10/24/21 06:31: POC Glucose 71 Micro: Microbiology 10/23/21 09:35 Blood Culture (Wb) - Right Wrist Bacteria Detection (PCR) - Preliminary Staphylococcus aureus 10/23/21 09:35 Blood Culture (Wb) - Right Wrist Blood Culture - Preliminary 10/23/21 10:03 Blood Culture (Wb) - Right Hand Blood Culture - Preliminary 10/23/21 10:47 Urine Catheter - Eugene Legionella Antigen - Final 10/23/21 10:47 Urine Catheter - Eugene Streptococcus pneumoniae Antigen (M - Final ABG Data ABG results: ABG 10/23/21 10/23/21 10:00 14:52 Specimen Type ART ART Sample Site R Radial R Radial pH 7.56 H 7.47 H Bicarbonate Actual 24.1 20.2 L Total CO2 25 21 Base Excess 2 -3 L O2 Saturation 92 L 94 L O2 % 93 100 ABG pCO2 27.0 L 27.8 L ABG pO2 53 L 63 L Jean-Pierre Test Positive Positive Respiration Rate 16 O2 Delivery Device Vapotherm Adult Vent Vent Mode AC Tidal Volume 400 POC PEEP 5 Clinical Comments 60lpm 93% Radiography Diagnostic Testing: Radiology Impression Chest X-Ray 10/23/21 06:34 IMPRESSION: 1. Bilateral basilar airspace disease and atelectasis appears greater than was apparent on previous study. 2. Cardiomegaly and pulmonary vascular congestion. Electronically Signed: Rufina Dillon MD at 8:01 EST , Service support , Chest X-Ray 10/23/21 13:00 IMPRESSION: The tip of the endotracheal tube is at 3.4 cm proximal to the jez. The tip of the orogastric tube is at the gastroesophageal junction. Progressive infiltrates in both lower lobes worse on the right side. Gaseous distention of the stomach. Electronically Signed: Todd Zapien MD at 13:43 EST , Service support , Chest X-Ray 10/23/21 14:27 IMPRESSION: The right internal jugular venous catheter is at the junction of the superior vena cava and right atrium. The support tubes are unchanged. Progressive right lung infiltrate. Electronically Signed: Todd Zapien MD at 15:11 EST , Service support , KUB X-Ray 10/23/21 21:55 IMPRESSION: 1. NG tube extends into the stomach. 2. Gas-filled distended bowel segments, majority of which appears represent large bowel. Findings are consistent with an adynamic ileus. No adriana bowel obstruction or pneumatosis. Electronically Signed: Rober Sabillon MD at 22:19 EST Tel , Service support , Physical Exam Const General Appearance: appears older than stated age, intubated and patient mechanically ventilated Orientation / Consciousness: obtunded Nutritional Appearance: overweight HEENT normocephalic and head/scalp atraumatic Eyes PERRL Eyes Narrative: Scleral injection Neck full ROM Chest inspection of chest normal Chest: symmetrical chest wall rise; Negative for crepitus Resp normal respiratory effort Auscultation: diminished lung sounds; Negative for rales, rhonchi or wheezes Cardio S1 normal heart sound, S2 normal heart sound, no murmurs, no rub and no gallops Rate: tachycardic GI Inspection: abdominal distention Palpation: Negative for guarding, rigid or ascites Extremity no clubbing, cyanosis or edema Skin Skin Narrative: Mottling noted of the thorax, right upper and bilateral lower extremities. Cool to the touch. Neuro [place] Coma Scale: document GCS findings None Withdraws to Pain None 6 Charges/Coding Procedures Hospitalists Procedures: 66283 Critial Care 1st Hr
[2021-10-24] MEDS: Chlorhexidine 15 ML PO (07:56)
[2021-10-24 08:51] LABS: Bedside Glucose 44 mg/dL (70-110)
[2021-10-24 08:51] LABS: Bedside Glucose 110 mg/dL (70-110)
--- NOTE | 2021-10-24 09:17 | PN.HOSP_ITS ---
Subjective Subjective Follow-up on status postcardiac arrest/refractory shock acute hypoxic respiratory failure/acute COVID-19 pneumonia: Patient was seen and examined. Overnight, patient remains in refractory shock. She has episodes of hypoglycemia with blood sugars in the 50s. This was treated with D50 and D10. She has mottling of the skin. She is on PEEP of 8, FiO2 80%, currently on 3 pressors. She underwent emergent EGD yesterday for blood in the OG tube. Findings show a Laurie Schuster tear. Objective Data Objective Data Vital Signs: Vital Signs Temp Pulse Resp BP Pulse Ox 99.5 F H 94 29 H 77/42 L 73 10/24/21 08:15 10/24/21 09:00 10/24/21 09:00 10/24/21 09:00 10/24/21 09:00 Oxygen Flow Rate (L/min) 60 Oxygen Delivery Method Mechanical Ventilator Weight: 72.5 kg Body Mass Index (BMI) 2.9 Intake & Output: Intake and Output for Last 24 Hours 10/22/21 10/23/21 10/24/21 23:59 23:59 23:59 Intake Total 1320 / 1320 3442.03 / 3559.52 1644.79 / 1644.79 Output Total 300 / 300 990 / 990 30 / 30 Balance 1020 / 1020 2452.03 / 2569.52 1614.79 / 1614.79 Lab / Micro Data Result Diagrams: 10/24/21 05:15 10/24/21 05:15 Labs: Laboratory Results - last 24 hr 10/23/21 05:20: TSH 2.25, Free T4 1.47 H, Free T3 pg/dL 1.2 L 10/23/21 09:35: Lactic Acid 3.8 H* 10/23/21 09:45: POC Glucose 299 H 10/23/21 10:03: Total Creatine Kinase 466 H, Triglycerides 189 10/23/21 11:24: POC Glucose 141 H 10/23/21 14:45: Blood Type A POSITIVE, Antibody Screen NEGATIVE, Crossmatch See Detail 10/23/21 14:45: WBC 1.9 L, RBC 4.79, Hgb 13.7, Hct 42.2, MCV 88.1, MCH 28.6, MCHC 32.5, RDW Std Deviation 51.8 H, RDW Coeff of Abdoul 15.9 H, Plt Count 173, MPV 11.3, Immature Gran % (Auto) 1.100 H, Neut % (Auto) 70.6 H, Lymph % (Auto) 24.6, [place] % (Auto) 2.7, Eos % (Auto) 0.5, Baso % (Auto) 0.5, Absolute Neuts (auto) 1.3 L, Absolute Lymphs (auto) 0.46 L, Nucleated RBC % 1.1, Differential Comment SCANNED, Diff Path Review February10/23/21 14:45: PT 17.2 H, INR 1.5, APTT 33.3 10/23/21 14:45: Lactic Acid 8.9 H* 10/23/21 18:10: POC Glucose 17 L* 10/23/21 18:29: POC Glucose 75 10/23/21 20:17: POC Glucose 60 L 10/23/21 20:24: Hgb 13.8, Hct 44.3 10/23/21 20:24: Lactic Acid 11.6 H* 10/23/21 22:44: POC Glucose 16 L* 10/23/21 23:14: POC Glucose 59 L 10/23/21 23:46: POC Glucose 67 L 10/24/21 01:08: POC Glucose 59 L 10/24/21 01:33: POC Glucose 76 10/24/21 03:48: POC Glucose 57 L 10/24/21 05:02: POC Glucose 60 L 10/24/21 05:15: Magnesium 3.0 H 10/24/21 05:15: Sodium 137, Potassium 6.4 H*, Chloride 100, Carbon Dioxide 10.0 L, Anion Gap 27 H, BUN 66 H, Creatinine 6.34 H, Estim Creat Clear Calc 7.12, Est GFR (MDRD) Af Amer 8 L, Est GFR (MDRD) Non-Af 7 L, BUN/Creatinine Ratio 10.4, Glucose 252 H, Calcium 6.3 L*, Phosphorus 14.2 H* 10/24/21 05:15: WBC 10.6, RBC 4.46, Hgb 12.4, Hct 43.0, MCV 96.4 D, MCH 27.8, MCHC 28.8 L D, RDW Std Deviation 58.4 H, RDW Coeff of Abdoul 16.4 H, Plt Count 101 L, MPV 11.9, Neut % (Auto) Not Reportable, Absolute Neuts (auto) 5.0, Absolute Lymphs (auto) 2.55, Total Counted 100, Neutrophils % (Manual) 28 L, Band Neutrophils % 19 H, Lymphocytes % (Manual) 24, Monocytes % (Manual) 5, Metamyelocytes % 13 H, Myelocytes % 9 H, Blast Cells % 1 H*, Diff Path Review May foll, Platelet Estimate SLT DEC, RBC Morphology NORM C+C 10/24/21 05:25: POC Glucose 46 L 10/24/21 06:31: POC Glucose 71 10/24/21 08:00: POC Glucose 44 L* 10/24/21 08:19: POC Glucose 110 Micro: Microbiology 10/23/21 09:35 Blood Culture (Wb) - Right Wrist Bacteria Detection (PCR) - Preliminary Staphylococcus aureus 10/23/21 09:35 Blood Culture (Wb) - Right Wrist Blood Culture - Preliminary 10/23/21 10:03 Blood Culture (Wb) - Right Hand Blood Culture - Preliminary 10/23/21 10:47 Urine Catheter - Eugene Legionella Antigen - Final 10/23/21 10:47 Urine Catheter - Eugene Streptococcus pneumoniae Antigen (M - Final ABG Data ABG results: ABG 10/23/21 10/23/21 10:00 14:52 Specimen Type ART ART Sample Site R Radial R Radial pH 7.56 H 7.47 H Bicarbonate Actual 24.1 20.2 L Total CO2 25 21 Base Excess 2 -3 L O2 Saturation 92 L 94 L O2 % 93 100 ABG pCO2 27.0 L 27.8 L ABG pO2 53 L 63 L Jean-Pierre Test Positive Positive Respiration Rate 16 O2 Delivery Device Vapotherm Adult Vent Vent Mode AC Tidal Volume 400 POC PEEP 5 Clinical Comments 60lpm 93% Radiography Diagnostic Testing: Radiology Impression Chest X-Ray 10/23/21 13:00 IMPRESSION: The tip of the endotracheal tube is at 3.4 cm proximal to the jez. The tip of the orogastric tube is at the gastroesophageal junction. Progressive infiltrates in both lower lobes worse on the right side. Gaseous distention of the stomach. Electronically Signed: Todd Zapien MD at 13:43 EST , Service support , Chest X-Ray 10/23/21 14:27 IMPRESSION: The right internal jugular venous catheter is at the junction of the superior vena cava and right atrium. The support tubes are unchanged. Progressive right lung infiltrate. Electronically Signed: Todd Zapien MD at 15:11 EST , Service support , KUB X-Ray 10/23/21 21:55 IMPRESSION: 1. NG tube extends into the stomach. 2. Gas-filled distended bowel segments, majority of which appears represent large bowel. Findings are consistent with an adynamic ileus. No adriana bowel obstruction or pneumatosis. Electronically Signed: Rober Sabillon MD at 22:19 EST Tel , Service support , Physical Exam Narrative Physical exam: General: Unresponsive, pale, intubated HEENT: Atraumatic Oral: Moist Mucosa Neck: Supple Lungs: Diminished to auscultation Cardiovascular: HS I+II, regular, no murmurs Abdomen: Bowel Sounds Present, Soft, Non Tender Extremities: Mottling and peripheral cyanosis of the skin and extremities Assessment & Plan Assessment/Plan (1) Missed dialysis: (2) Hyperkalemia: (3) COVID-19: (4) Acute hypoxemic respiratory failure: PLAN: 1. Septic shock, likely secondary to superimposed pneumonia on acute COVID-19, refractory Remains in shock; lactic acid elevated to 11.6 Currently on 3 pressors -Levophed, epinephrine, vasopressin Blood cultures growing Staph aureus -on vancomycin and Unasyn Retail Pharmacist following 2. Status post cardiopulmonary arrest from #1 3. Acute hypoxic respiratory failure likely secondary to #1 and hypoxia Remains on significant amount of oxygen requirement Status post intubation on 10/23/21 for primary airway protection 4. Acute GI bleed, patient with coffee-ground to dark blood from OG Hemoglobin has remained stable 5. Fluid overload due to missed dialysis from ESRD, present on admission, resolved 6. Hyperkalemia/hypokalemia/hypocalcemia/hypophosphatemia, potassium is elevated at 6.4 Patient is unable to be dialyzed on account of refractory shock. 7. Type 2 DM, patient with episodes of hypoglycemia, on D10, monitor blood sugars on 8. Rest of chronic medical conditions including hyperlipidemia, hypothyroidism remained stable 9. DVT prophylaxis - Lovenox SC I had an end-of-life discussion with the patient daughter this morning on phone. I updated her on her progress overnight. She wanted her mother to be comfortable. She did not want her mother to undergo any cardiac arrest. She is agreeable to terminal extubation. All questions were answered. Patient will be terminally extubated. Orders put in. Charges/Coding Visit Charges Inpatient E&M: 47927 Subs Hosp L3
--- NOTE | 2021-10-24 10:01 | OP.EGD_ITS ---
Patient Name: Dee Dee Meléndez Procedure Date: 10/23/2021 4:28 PM Date of : 1960 Age: 60 Procedure: Upper GI endoscopy Indications: Hematemesis Providers: Gene Aranda DO Medicines: See the Anesthesia note for documentation of the administered medications Patient Profile: This is a 60 year old female. Refer to note in patient chart for documentation of history and physical. Patient has symptoms of acute vomiting. Complications: No immediate complications. Procedure: Pre-Anesthesia Assessment: - Prior to the procedure, a History and Physical was performed, and patient medications and allergies were reviewed. The patient is competent. The risks and benefits of the procedure and the sedation options and risks were discussed with the patient. All questions were answered and informed consent was obtained. Patient identification and proposed procedure were verified by the physician in the pre-procedure area. Mental Status Examination: alert and oriented. Airway Examination: normal oropharyngeal airway and neck mobility. Respiratory Examination: clear to auscultation. CV Examination: normal. Prophylactic Antibiotics: The patient does not require prophylactic antibiotics. Prior Anticoagulants: The patient has taken no previous anticoagulant or antiplatelet agents. ASA Grade Assessment: II - A patient with mild systemic disease. After reviewing the risks and benefits, the patient was deemed in satisfactory condition to undergo the procedure. The anesthesia plan was to use moderate sedation / analgesia (conscious sedation). Immediately prior to administration of medications, the patient was re-assessed for adequacy to receive sedatives. The heart rate, respiratory rate, oxygen saturations, blood pressure, adequacy of pulmonary ventilation, and response to care were monitored throughout the procedure. The physical status of the patient was re-assessed after the procedure. After obtaining informed consent, the endoscope was passed under direct vision. Throughout the procedure, the patient's blood pressure, pulse, and oxygen saturations were monitored continuously. The pediatric colonoscope was introduced through the mouth, and advanced to the second part of duodenum. The upper GI endoscopy was accomplished without difficulty. The patient tolerated the procedure well. Moderate Sedation: Moderate (conscious) sedation was administered by the endoscopy nurse and supervised by the endoscopist. The patient's oxygen saturation, heart rate, blood pressure and response to care were monitored. Total physician intraservice time was 15 minutes. Scope In: 5:01:34 PM Scope Out: 5:15:05 PM Total Procedure Duration Time 0 hours 13 minutes 31 seconds Findings: A 9 mm bleeding Laurie-Schuster tear with stigmata of recent bleeding was found. Area was successfully injected with 5 mL of a 1:10,000 solution of epinephrine for drug delivery. Coagulation for hemostasis using monopolar probe was successful. To prevent bleeding post-intervention, two hemostatic clips were successfully placed. There was no bleeding at the end of the procedure. The entire examined stomach was normal. The second portion of the duodenum was normal. A guide wire was inserted into the stomach and the endoscope was removed. A 14 Fr orogastric tube was advanced over the guide wire into the stomach. Placement was confirmed by scope visualization. The endoscope was reinserted along side the gastric tube. Impression: - Laurie-Schuster tear. Injected. Treated with a monopolar probe. Clips were placed. - Normal stomach. - Normal second portion of the duodenum. - Feeding tube placement was successfully performed. - No specimens collected. Recommendation: - Discharge patient to home. - NPO. - Continue present medications. Procedure Code(s): --- Professional --- 04688, 59, Esophagogastroduodenoscopy, flexible, transoral; with control of bleeding, any method 31895, Esophagogastroduodenoscopy, flexible, transoral; with insertion of intraluminal tube or catheter 92542, 59, Esophagogastroduodenoscopy, flexible, transoral; with directed submucosal injection(s), any substance 04298, 59, Moderate sedation services provided by the same physician or other qualified health career education teacher performing the diagnostic or therapeutic service that the sedation supports, requiring the presence of an independent trained observer to assist in the monitoring of the patient's level of consciousness and physiological status; initial 15 minutes of intraservice time, patient age 5 years or older CPT copyright 2017 [employer]. All rights reserved. The codes documented in this report are preliminary and upon rail operator review may be revised to meet current compliance requirements. Gene Aranda DO 10/24/2021 10:01:20 AM This report has been signed electronically. Number of Addenda: 1 Note Initiated On: 10/23/2021 4:28 PM Addendum Number: 1 Addendum Date: 06/12/2022 6:19:45 AM MAC was used instead of moderate sedation for the patient. Gene Aranda DO 06/12/2022 6:19:49 AM This report has been signed electronically.
--- NOTE | 2021-10-24 10:02 | OP.CCLET_ITS ---
06/12/2022 Abraham Montague [address] [place] [address] Re : Upper GI endoscopy procedure for Dee Dee Meléndez Dear Dr. Montague This procedure was performed on Saturday, October 23, 2021. My impressions and recommendations are as follows: Impressions : - Laurie-Schuster tear. Injected. Treated with a monopolar probe. Clips were placed. - Normal stomach. - Normal second portion of the duodenum. - Feeding tube placement was successfully performed. - No specimens collected. Recommendations : - Discharge patient to home. - NPO. - Continue present medications. My findings are described in the full procedure note, which is enclosed. If I can be of further assistance, please feel free to contact me at . Sincerely, Gene Aranda, 10/24/2021 10:01:20 AM This report has been signed electronically.
--- NOTE | 2021-10-24 10:26 | PN.RENAL_ITS ---
Subjective Subjective Following for ESRD reviewed overnight events, code status is now DNR CC Objective Data Objective Data Vital Signs: Vital Signs Temp Pulse Resp BP Pulse Ox 99.5 F H 93 29 H 74/41 L 73 10/24/21 08:15 10/24/21 09:30 10/24/21 09:00 10/24/21 09:30 10/24/21 09:00 Oxygen Flow Rate (L/min) 60 Oxygen Delivery Method Mechanical Ventilator Weight: 72.5 kg Body Mass Index (BMI) 2.9 Intake & Output: Intake and Output for Last 24 Hours 10/22/21 10/23/21 10/24/21 23:59 23:59 23:59 Intake Total 1320 / 1320 3442.03 / 3559.52 1710.05 / 1710.05 Output Total 300 / 300 990 / 990 30 / Balance 1020 / 1020 2452.03 / 2569.52 1680.05 / 1680.05 Lab / Micro Data Result Diagrams: 10/24/21 05:15 10/24/21 05:15 Labs: Laboratory Results - last 24 hr 10/23/21 05:20: TSH 2.25, Free T4 1.47 H, Free T3 pg/dL 1.2 L 10/23/21 09:35: Lactic Acid 3.8 H* 10/23/21 10:03: Total Creatine Kinase 466 H, Triglycerides 189 10/23/21 11:24: POC Glucose 141 H 10/23/21 14:45: Blood Type A POSITIVE, Antibody Screen NEGATIVE, Crossmatch See Detail 10/23/21 14:45: WBC 1.9 L, RBC 4.79, Hgb 13.7, Hct 42.2, MCV 88.1, MCH 28.6, MCHC 32.5, RDW Std Deviation 51.8 H, RDW Coeff of Abdoul 15.9 H, Plt Count 173, MPV 11.3, Immature Gran % (Auto) 1.100 H, Neut % (Auto) 70.6 H, Lymph % (Auto) 24.6, [place] % (Auto) 2.7, Eos % (Auto) 0.5, Baso % (Auto) 0.5, Absolute Neuts (auto) 1.3 L, Absolute Lymphs (auto) 0.46 L, Nucleated RBC % 1.1, Differential Comment SCANNED, Diff Path Review May foll 10/23/21 14:45: PT 17.2 H, INR 1.5, APTT 33.3 10/23/21 14:45: Lactic Acid 8.9 H* 10/23/21 18:10: POC Glucose 17 L* 10/23/21 18:29: POC Glucose 75 10/23/21 20:17: POC Glucose 60 L 10/23/21 20:24: Hgb 13.8, Hct 44.3 10/23/21 20:24: Lactic Acid 11.6 H* 10/23/21 22:44: POC Glucose 16 L* 10/23/21 23:14: POC Glucose 59 L 10/23/21 23:46: POC Glucose 67 L 10/24/21 01:08: POC Glucose 59 L 10/24/21 01:33: POC Glucose 76 10/24/21 03:48: POC Glucose 57 L 10/24/21 05:02: POC Glucose 60 L 10/24/21 05:15: Magnesium 3.0 H 10/24/21 05:15: Sodium 137, Potassium 6.4 H*, Chloride 100, Carbon Dioxide 10.0 L, Anion Gap 27 H, BUN 66 H, Creatinine 6.34 H, Estim Creat Clear Calc 7.12, Est GFR (MDRD) Af Amer 8 L, Est GFR (MDRD) Non-Af 7 L, BUN/Creatinine Ratio 10.4, Glucose 252 H, Calcium 6.3 L*, Phosphorus 14.2 H* 10/24/21 05:15: WBC 10.6, RBC 4.46, Hgb 12.4, Hct 43.0, MCV 96.4 D, MCH 27.8, MCHC 28.8 L D, RDW Std Deviation 58.4 H, RDW Coeff of Abdoul 16.4 H, Plt Count 101 L, MPV 11.9, Neut % (Auto) Not Reportable, Absolute Neuts (auto) 5.0, Absolute Lymphs (auto) 2.55, Total Counted 100, Neutrophils % (Manual) 28 L, Band Neutrop hils % 19 H, Lymphocytes % (Manual) 24, Monocytes % (Manual) 5, Metamyelocytes % 13 H, Myelocytes % 9 H, Blast Cells % 1 H*, Diff Path Review February foll, Platelet Estimate SLT DEC, RBC Morphology NORM C+C 10/24/21 05:25: POC Glucose 46 L 10/24/21 06:31: POC Glucose 71 10/24/21 08:00: POC Glucose 44 L* 10/24/21 08:19: POC Glucose 110 Micro: Microbiology 10/23/21 13:00 Sputum, Induced/[place] Respiratory Culture - Preliminary Staphylococcus aureus 10/23/21 09:35 Blood Culture (Wb) - Right Wrist Bacteria Detection (PCR) - Preliminary Staphylococcus aureus 10/23/21 09:35 Blood Culture (Wb) - Right Wrist Blood Culture - Preliminary 10/23/21 10:03 Blood Culture (Wb) - Right Hand Blood Culture - Preliminary 10/23/21 10:47 Urine Catheter - [place] Legionella Antigen - Final 10/23/21 10:47 Urine Catheter - [place] Streptococcus pneumoniae Antigen (M - Final ABG Data ABG results: ABG 10/23/21 14:52 Specimen Type ART Sample Site R Radial pH 7.47 H Bicarbonate Actual 20.2 L Total CO2 21 Base Excess -3 L O2 Saturation 94 L O2 % 100 ABG pCO2 27.8 L ABG pO2 63 L Jean-[place] Test Positive Respiration Rate 16 O2 Delivery Device Adult Vent Vent Mode AC Tidal Volume 400 POC PEEP 5 Radiography Diagnostic Testing: Radiology Impression Chest X-Ray 10/23/21 13:00 IMPRESSION: The tip of the endotracheal tube is at 3.4 cm proximal to the jez. The tip of the orogastric tube is at the gastroesophageal junction. Progressive infiltrates in both lower lobes worse on the right side. Gaseous distention of the stomach. Electronically Signed: Tdod Zapien MD at 13:43 EST , Service support , Chest X-Ray 10/23/21 14:27 IMPRESSION: The right internal jugular venous catheter is at the junction of the superior vena cava and right atrium. The support tubes are unchanged. Progressive right lung infiltrate. Electronically Signed: Todd Zapien MD at 15:11 EST , Service support , KUB X-Ray 10/23/21 21:55 IMPRESSION: 1. NG tube extends into the stomach. 2. Gas-filled distended bowel segments, majority of which appears represent large bowel. Findings are consistent with an adynamic ileus. No adriana bowel obstruction or pneumatosis. Electronically Signed: Rober Sabillon MD at 22:19 EST Tel , Service support , Physical Exam Narrative Cont: intubated Cardio: S1S2 RRR Resp: diminished breath sounds Extremities: no pitting edema, mottling noted Assessment & Plan Assessment/Plan (1) End-stage renal disease on hemodialysis: (2) Hyperkalemia: (3) Hyperphosphatemia: (4) COVID-19: PLAN: Patient was transferred to ICU yesterday after respiratory and hemodynamic decompensation. She suffered cardiopulmonary arrest, intubated and started on pressors. OG placed and found to have coffee-ground emesis, had EGD with findings of Laurie Schuster tear. Bps not improved on 3 pressors: Levophed, epinephrine, vasopressin. Multiple episodes of hypoglycemia treated with D 50/D10. Patient is mottling this am. K+6.4, lactic acid 11.6. Discussed with Dr. Tijerina, a call was placed to daughter this am regarding last 24 hour events, end-of-life discussion was held and daughter wishes for her mother to be comfortable, agreeable to terminal extubation.
[2021-10-24] MEDS: LORazepam 2 MG/ML Syringe IV (10:51)
[2021-10-24] MEDS: Morphine 2 MG/ML Syringe IV (10:51)
--- NOTE | 2021-10-24 10:52 | NURSING ---
Patient made DNRCC by daughter and decided to terminally wean from vent. This RN and RT at bedside, pt extubated at 1052. Comfort medications given prior to extubation. Time of at 1106, no pulse felt and no heart beat heard. Verified by this RN and second RN Cody De Leon. Dr. Mckeon and Dr. Tijerina aware.
--- NOTE | 2021-10-24 12:22 | NURSING ---
[facility] called at 1003, spoke to Prasanth. They called back at 1035 and said OK to terminally extubate patient.
--- NOTE | 2021-10-24 13:19 | EXP.PCM_ITS ---
Preliminary Cause of Preliminary Cause of Preliminary Cause of : Septic shock Hyperkalemia Cardiopulmonary arrest secondary to septic shock Date of Admission: 10/19/21 Date of : 10/24/21 Principle Diagnosis Problem List: Active and Suspected Problems (Updated 10/23/21 @ 14:[address] Jam Mckeon MD) Respiratory arrest before cardiac arrest (Acute) Hyperphosphatemia (Acute) Hyperkalemia (Acute) Missed dialysis (Acute) COVID-19 (Acute) Acute hyperkalemia (Acute) Acute hypoxemic respiratory failure (Acute) COVID-19 (Acute) Hospital Course 60-year-old female with past medical history of ESRD on hemodialysis who presented with progressive shortness of breath and fever ongoing for about 3 days. Patient was diagnosed with COVID-19, 5 days prior to admission. She did not receive any monoclonal antibody. Patient has not been able to go for dialysis because of her COVID. She had missed dialysis 1 week. She was found in fluid overload state with hyperkalemia. She did receive emergent dialysis. Patient overall was improved and was off oxygen. She was continued on dexametha sone. Patient however decompensated on 10/23/20 with initial rapid response for fever, hypotension and unresponsiveness. Patient was seen self inducing vomiting the night before. She was started on antibiotics received fluid boluses. She remained improved for short while and then became worse. She was transferred to ICU. She went into cardiopulmonary arrest on arrival in ICU. She was emergen tly intubated, put on mechanical ventilator, central line put in. She however became progressively septic and required high amount of pressors and required high amount of oxygen. Discussed with the daughter, CODE STATUS was made DNR CC. Daughter gave consent for terminal extubation. Time of [id number] Visit Charges Inpatient E&M: 50909 Disch Hosp
--- NOTE | 2021-10-24 13:19 | CPS ---
patient was terminally extubated.
[2021-10-28 09:09] LABS: Pathologist Review Reviewed
[2021-10-28 09:26] LABS: Pathologist Review Reviewed
== END 2021-10-24 13:05 | DRG 208 ==
LOC: ED 14:50 → PCU 16:05 → ICU 10-23 12:19
PROVIDERS: Internal Medicine Critical Care Medicine; Internal Medicine Gastroenterology; Student in an Organized Health Care Education/Training Program; Admitting Provider Hospitalist; Emergency Provider Emergency Medicine; PCP Family Medicine; Visit Provider Internal Medicine
PROC: 0DJ08ZZ Inspection of Upper Intestinal Tract, Via Natural or Artificial Opening Endoscopic (ICD-10-PCS; CPT 43235; principal; 2021-10-23 15:40)
DX: U07.1 COVID-19 (principal); J96.01 Acute respiratory failure with hypoxia; A41.89 Other specified sepsis; J69.0 Pneumonitis due to inhalation of food and vomit; J12.82 Pneumonia due to coronavirus disease 2019; R65.21 Severe sepsis with septic shock; K22.6 Gastro-esophageal laceration-hemorrhage syndrome; N18.6 End stage renal disease; K92.2 Gastrointestinal hemorrhage, unspecified; I12.0 Hypertensive chronic kidney disease with stage 5 chronic kidney disease or end stage renal disease; J44.0 Chronic obstructive pulmonary disease with (acute) lower respiratory infection; E87.1 Hypo-osmolality and hyponatremia; E83.39 Other disorders of phosphorus metabolism; I46.9 Cardiac arrest, cause unspecified; Z99.2 Dependence on renal dialysis; Z79.4 Long term (current) use of insulin; R56.9 Unspecified convulsions; E11.22 Type 2 diabetes mellitus with diabetic chronic kidney disease; E87.5 Hyperkalemia; E87.70 Fluid overload, unspecified; I25.10 Atherosclerotic heart disease of native coronary artery without angina pectoris; E78.5 Hyperlipidemia, unspecified; E03.9 Hypothyroidism, unspecified; E87.6 Hypokalemia; F41.9 Anxiety disorder, unspecified; K31.84 Gastroparesis; E83.51 Hypocalcemia; Z79.1 Long term (current) use of non-steroidal anti-inflammatories (NSAID); Z66 Do not resuscitate
CPT/HCPCS: 31500; 31720; 36415; 36600; 71045; 74018; 80048; 80053; 82330; 82550; 82803; 82962; 83605; 83735; 84100; 84439; 84443; 84478; 84481; 85014; 85018; 85025; 85610; 85730; 86850; 86900; 86901; 86920; 86922; 87040; 87070; 87077; 87149; 87186; 87205; 87449; 87635; 90937; 92950; 93005; 94002; 94003; 94640; 94660; 94667; 94668; 94762; 97161; 97165; 97530; 99251; 99285; J7030; J7040; J7050; J7120; A4216; G0257; G0463; J0295; J0330; J0610; J1940; J2405; J3010; J3490; U0003; U0005